=== PATIENT | male | born 1960 | race African-American/Black ===

== ENCOUNTER 2020-04-29 07:58 | Outpatient (REF) | payer SELFPAY | END 2020-04-29 07:59 | disposition home or self-care (01) | LOC: HO.LAB 07:58 | PROVIDERS: Visit Provider Internal Medicine | DX: Z20.828 Contact with and (suspected) exposure to other viral communicable diseases (principal) | CPT/HCPCS: C9803; U0003 ==

== ENCOUNTER 2020-07-15 11:22 | Emergency (ER) | payer OTHER, SELFPAY ==
[2020-07-15 12:23] VITALS: BP 157/98; PULSE 87; RESP 16; TEMP 36.8; O2SAT 95; BMI 27.4
--- NOTE | 2020-07-15 12:46 | ED.GENADULT ---
HPI - General Adult General Chief complaint: General Medical Stated complaint: covid symptoms Time Seen by Provider: 07/15/20 12:46 History of Present Illness HPI narrative: Patient complains of body aches chills, feels feverish sore throat runny nose for 4 days, no cough no difficulty breathing no vomiting Related Data Allergies Allergy/AdvReac Type Severity Reaction Status Date / Time shellfish derived Allergy Severe ANAPHYLAXIS Unverified 02/29/20 15:19 [SHELLFISH DERIVED] penicillin V Allergy Unknown Swollen Verified 09/14/13 00:00 face Penicillins [PENICILLINS] Allergy Unknown ANGIOEDEMA Unverified 02/29/20 15:19 penicillins (shellfish Allergy Unknown Uncoded 07/28/17 00:00 derived Shell fish Allergy Unknown Swollen Uncoded 09/14/13 00:00 face SHELLFISH Allergy Unknown Uncoded 07/28/17 00:00 Review of Systems Review of Systems: Positive for body aches fever fatigue sore throat runny nose Negatives are no headache no dizziness no weakness no neck pain no chest pain no difficulty breathing no shortness of breath no nausea vomiting diarrhea no abdominal pain no rash no numbness no weakness Yes all other systems are reviewed and are negative [facility] Past Medical History Source: nursing notes reviewed Medical History (Updated 07/15/20 @ 13:56 by YAZAN Ramírez) Asthma Social History Social History Advance Directives: No Advance Directives Information Provided: No Physical Exam Vital Signs: Vital Signs: Last Vital Signs Temp 98.2 F 07/15/20 12:47 Pulse 91 07/15/20 12:47 Resp 18 07/15/20 12:47 BP 185/96 H 07/15/20 12:47 Pulse Ox 93 07/15/20 12:47 Body Mass Index 27.4 General appearance no acute distress, comfortable appearing cooperative The eyes not red no discharge The sinuses not tender The pharynx no redness no swelling no exudate, uvula is midline no drooling voice is normal and mucous membranes are well hydrated, normal appearing pharynx The neck is supple without lymphadenopathy The chest is clear with full equal symmetrical breath sounds Heart rate and rhythm regular no murmurs Abdomen soft nontender Extremities no calf tenderness no swelling of calf no edema Skin no rashes neuro no focal deficit Course Course Course Narrative: COVID testing was negative but patient has symptoms that could be COVID so he is advised to stay out of work where mask and assume he might have COVID and to get a repeat test when he feels better for clearance to return to work He is also advised that his blood pressure was elevated and he said this has happened before but he has never had a diagnosis of high blood pressure since he is advised to follow with primary doctor and to buy a home cuff and keep a record of his blood pressure readings Medical Decision Making Lab Data Labs: Lab Results 07/15/20 Range/Units 12:27 Coronavirus (PCR) NEGATIVE (Negative) Influenza Type A (PCR) NEGATIVE (Negative) Influenza Type B (PCR) NEGATIVE (Negative) RSV RNA Qual (PCR) NEGATIVE (Negative) Discharge Plan Discharge Clinical Impression: Acute viral syndrome Patient Disposition: Home, Self-Care Additional Instructions: COVID test was negative but many patients who have COVID illness will have a 1st test negative so assume you might have COVID and wear mask keep a distance and out of work until symptoms are gone and a repeat test is negative Drink plenty of fluids, Tylenol if needed for aches and pains Return any time any worse condition or any concerns Stand Alone Forms: Work/School Release Interventions: ED Discharge Assessment Last Done: 07/15/20 14:48 Discharge Date/Time: 07/15/20 14:48
[2020-07-15 12:47] VITALS: BP 185/96; PULSE 91; RESP 18; TEMP 36.8; O2SAT 93
--- NOTE | 2020-07-15 12:47 | PC.NURSE ---
LS CTA, slightly dim RLL. unlabored at rest. skin pwd. describes fatigue and cough, sob with exertion. Pt had short coughing fit and dropped to 87% but recovered quickly w/o O2. Awaits CT read and repeat swab rsults.
[2020-07-15 13:33] LABS: Influenza A PCR NEGATIVE (Negative); Influenza B PCR NEGATIVE (Negative); Resp Syncy Virus RNA Qual PCR NEGATIVE (Negative); SARS COV2 PCR INHOUSE NEGATIVE (Negative)
== END 2020-07-15 14:48 | disposition home or self-care (01) ==
PROVIDERS: Emergency Provider Emergency Medicine
DX: B34.9 Viral infection, unspecified (principal); Z20.822 Contact with and (suspected) exposure to COVID-19; J02.9 Acute pharyngitis, unspecified; J45.909 Unspecified asthma, uncomplicated
CPT/HCPCS: 0241U; 36415; 99283

== ENCOUNTER 2020-07-19 11:47 | Outpatient (REF) | payer OTHER, SELFPAY | END 2020-07-19 11:48 | disposition home or self-care (01) | LOC: HO.LAB 11:47 | PROVIDERS: Visit Provider Internal Medicine | DX: Z20.822 Contact with and (suspected) exposure to COVID-19 (principal) | CPT/HCPCS: 36415; C9803; U0003; U0005 ==

== ENCOUNTER 2021-02-23 13:01 | Emergency (ER) | payer OTHER, SELFPAY ==
[2021-02-23 13:16] VITALS: BP 164/99; PULSE 98; RESP 18; TEMP 38; O2SAT 95; BMI 26.7
--- NOTE | 2021-02-23 13:25 | ED.GENADULT ---
HPI - General Adult General Chief complaint: General Medical Stated complaint: earache, Fever Time Seen by Provider: 02/23/21 13:24 Source: patient Mode of arrival: ambulatory Limitations: no limitations History of Present Illness HPI narrative: 60 y/o male presenting with 2 days of fevers, sore throat, headache and ear pains. He also has seasonal allergies and his eyes have been watering more than usual. He has runny nose with clear discharge and some post nasal drip. He has no cough, SOB, GONZALES, chest pain, N/V/D or abdominal pain. No sick contacts. 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 He is not vaccinated against COVID. MD complaint: URI symptoms Onset (ago): day(s) (2) Location: head, face and mouth Radiation: non-radiation Severity: moderate Quality: aching Pain Consistency: intermittent Relieving factors: none Exacerbating factors: none Associated symptoms: fever/chills and headaches Treatments prior to arrival: none Related Data Previous Rx's Medication Instructions Recorded cetirizine 10 mg tablet (Zyrtec) 10 mg PO DAILY #14 tab 02/23/21 fluticasone propionate 50 1 spray INTRANASAL BID #16 g 02/23/21 mcg/actuation nasal spray,suspension (Flonase Allergy Relief) Allergies Allergy/AdvReac Type Severity Reaction Status Date / Time shellfish derived Allergy Severe ANAPHYLAXIS Verified 02/23/21 13:16 [SHELLFISH DERIVED] penicillin V Allergy Unknown Swollen Verified 02/23/21 13:16 face Penicillins [PENICILLINS] Allergy Unknown ANGIOEDEMA Verified 02/23/21 13:16 Review of Systems Review of Systems: Constitutional: + Fever, + Chills ENT/Mouth: + sore throat, No Rhinorrhea, No Swallowing Difficulty, +ear pain Eyes: No Eye Pain, No Swelling, + Redness, +eye watering Cardiovascular: No Chest Pain, No SOB, No Orthopnea, No Edema Respiratory: No Cough, No Sputum, No Wheezing, No dyspnea Gastrointestinal: No Nausea, No Vomiting, No Diarrhea, No abdominal Pain Genitourinary: No Dysuria, No Urinary Frequency, No Hematuria Musculoskeletal: No joint pain, No Myalgias Skin: No Skin Lesions, No rash Neuro: No Weakness, No Numbness, No Dizziness, + Headache Heme/Lymph: No Lymphadenopathy PMFSH Past Medical History Medical History (Updated 02/23/21 @ 14:13 by YAZAN Parr) Asthma Social History Social History Advance Directives: No Advance Directives Information Provided: Yes Physical Exam Vital Signs: Vital Signs: Last Vital Signs Temp 100.4 F 02/23/21 13:16 Pulse 98 02/23/21 13:16 Resp 18 02/23/21 13:16 BP 164/99 H 02/23/21 13:16 Pulse Ox 95 02/23/21 13:16 Body Mass Index 26.7 Appearance: Alert. Oriented X3. No acute distress. Eyes: Pupils equal, round and reactive to light. ENT: Pharynx normal. No tonsillar exudate or swelling. Normal TM's bilaterally. Nasal turbinates with erythema and edema Neck: Normal inspection. Neck supple. CVS: Normal heart rate and rhythm. Pulses normal. Respiratory: No respiratory distress. Breath sounds normal. Skin: Skin warm and dry. Normal skin color. Normal skin turgor. No rashes. Extremities: No lower extremity edema. Neuro: Oriented X 3. No motor deficit. No sensory deficit. Course Course Course Narrative: 60 y/o male presenting with URI symptoms. Low grade fever on arrival. He appears well, exam is benign. COVID is negative. Most likely viral etiology. Encouraged to get re-tested for COVID in a couple of days if he is still having symptoms. Will start treatment for his allergies. Supportive care of viral illnesses discussed. Stable for d/c home. Return precautions discussed. Medical Decision Making Lab Data Labs: Lab Results 02/23/21 Range/Units 13:21 COVID-19 (NAIDA) Negative (Negative) COVID-19 Clin Com See Note Critical Care Time Critical Care Time Critical Care Time: No Discharge Plan Discharge Clinical Impression: URI (upper respiratory infection) Patient Disposition: Home, Self-Care Instructions: Upper Respiratory Infection (ED), Allergies (ED) Additional Instructions: Your COVID test was negative today. Your symptoms are most likely viral. Take the prescribed medications for seasonal allergies as directed. Rest. Drink plenty of fluids. Do not go out in public while you are not feeling well. Recommend repeat COVID testing if you continue to have symptoms. Take over the counter cold/flu medications as needed for your symptoms. Take Tylenol and/or Motrin as needed for fevers and body aches. Follow up with your doctor this week. If you develop new or worsening symptoms call 911 or come back to the ER for further evaluation. Prescriptions: New cetirizine [Zyrtec] 10 mg tablet 10 mg PO DAILY Qty: 14 RF: 0 fluticasone propionate [Flonase Allergy Relief] 50 mcg/actuation spray,suspension 1 spray intranasal BID Qty: 16 RF: 0 Stand Alone Forms: Work/School Release
[2021-02-23 13:46] LABS: COVID-19 Test Negative (Negative)
[2021-02-23] MEDS: Ibuprofen 600 MG TABLET PO (13:52)
== END 2021-02-23 14:23 | disposition home or self-care (01) ==
PROVIDERS: Emergency Provider Emergency Medicine
DX: J06.9 Acute upper respiratory infection, unspecified (principal); R50.9 Fever, unspecified; H92.03 Otalgia, bilateral; Z20.822 Contact with and (suspected) exposure to COVID-19; Z79.899 Other long term (current) drug therapy
CPT/HCPCS: 36415; 87635; 99283

== ENCOUNTER 2021-02-26 10:26 | Emergency (ER) | payer OTHER, SELFPAY ==
--- NOTE | ~2021-02-26 | XR_ITS ---
EXAMINATION: XR CHEST CLINICAL INFORMATION: Headache COMPARISON: Previous chest x-ray most recent May 2016 TECHNIQUE: Frontal view of the chest was obtained. FINDINGS: The cardiac silhouette is upper normal in size. Hilar and mediastinal contours are unremarkable. The lungs are clear. There is no pleural effusion or pneumothorax. No acute bone abnormality is seen. XR/XR chest 1V IMPRESSION: No evidence for acute disease in the chest.
--- NOTE | ~2021-02-26 | CT_ITS ---
EXAMINATION: CT HEAD WITHOUT CONTRAST CLINICAL INFORMATION: Headache COMPARISON: Previous head CT December 2013 TECHNIQUE: Contiguous axial imaging was performed from the skull base to vertex without intravenous administration of contrast. This CT examination was performed using dose optimization techniques as appropriate, variously including the following: *Automated exposure control *Adjustment of mA and/or kV according to patient size (this includes techniques or standardized protocols for targeted exams where dose is matched to indication/reason for exam; i.e. extremities or head) *Use of iterative reconstruction technique DLP: 903 mGy-cm FINDINGS: There is no evidence of acute intracranial hemorrhage or territorial infarction. No abnormal mass effect or midline shift is seen. Watkins to white matter differentiation is well preserved. No extra-axial fluid collections are identified. The ventricles are normal in size. There is no abnormal attenuation within the brain parenchyma. The osseous structures and soft tissues are normal. The mastoid air cells and visualized portions of the paranasal sinuses are well aerated. CT/CT head/brain wo con IMPRESSION: Unremarkable exam.
[2021-02-26 11:28] VITALS: BP 170/93; PULSE 102; RESP 22; TEMP 38.4; O2SAT 94; BMI 29.4
--- NOTE | 2021-02-26 11:45 | ED.SOB ---
HPI - SOB/Dyspnea General Chief Complaint: Dyspnea Stated Complaint: Fever Chills Swollen Face Time Seen by Provider: 02/26/21 11:33 History of Present Illness HPI Narrative: 60-year-old presents today with having facial swelling. Achiness. Patient seen a few days ago. Tested for COVID was negative. Patient is not immunized. There is no change in smell or taste. Patient did have some fever up to 101. Denies any neck pain. Denies any diaphoresis. Denies any pain on urination. Minimal coughing. Positive generalized malaise. Positive congestion. Symptoms been ongoing. Not getting any better. Presented back to the emergency department. No history of diabetes, hypertension, high cholesterol. Related Data Previous Rx's Medication Instructions Recorded cetirizine 10 mg tablet (Zyrtec) 10 mg PO DAILY #14 tab 02/23/21 fluticasone propionate 50 1 spray INTRANASAL BID #16 g 02/23/21 mcg/actuation nasal spray,suspension (Flonase Allergy Relief) doxycycline hyclate 100 mg capsule 100 mg PO BID 7 Days #14 cap 02/26/21 Allergies Allergy/AdvReac Type Severity Reaction Status Date / Time shellfish derived Allergy Severe ANAPHYLAXIS Verified 02/23/21 13:16 [SHELLFISH DERIVED] penicillin V Allergy Unknown Swollen Verified 02/23/21 13:16 face Penicillins [PENICILLINS] Allergy Unknown ANGIOEDEMA Verified 02/23/21 13:16 Review of Systems Review of Systems: Positive generalized malaise positive facial swelling Positive congestion All systems reviewed otherwise negative PMFSH Past Medical History Medical History Asthma Social History Social History Advance Directives: No Advance Directives Information Provided: No Physical Exam Vital Signs: Vital Signs: Last Vital Signs Temp 99.6 F 02/26/21 13:21 Pulse 84 02/26/21 13:21 Resp 19 02/26/21 13:21 BP 136/87 02/26/21 13:21 Pulse Ox 97 02/26/21 13:21 Body Mass Index 29.4 Appearance: Alert. Oriented X3. No acute distress. Eyes: Pupils equal, round and reactive to light. ENT: Pharynx normal. Neck: Normal inspection. Neck supple. No lymph nodes noted. No crepitus CVS: Normal heart rate and rhythm. Pulses normal. Normal S1 and S2 Respiratory: No respiratory distress. Breath sounds normal. No Wheezing. No rales Abdomen: Soft and nontender. No rigidity. No distention. good BS x4 Skin: Skin warm and dry. Normal skin color. Normal skin turgor. Extremities: No lower extremity edema. Neurovascular intact to all extremities. No Lacerations. No Rash Neuro: Oriented X 3. No motor deficit. No sensory deficit. Moving all extermities. No slurred speech MDM - SOB/Dyspnea MDM Narrative Medical decision making narrative: Patient well-appearing no acute distress does have a white count of 14. Does not have a history of going outside. Patient chest x-ray was grossly negative for acute infiltrate. Patient's COVID test was negative. Patient's flu test was negative. Patient's CT scan of the head was grossly negative for any acute evidence of bleeding. No evidence of sinusitis. Question etiology of total body ache generalized malaise. Tick-borne panel was sent. Will start patient on doxycycline, follow up on an outpatient basis. Patient has no signs of meningitis neck is completely supple well appearing. Will discharge patient home. Differential Diagnosis Differential diagnosis: Likely acute exacerbation of chronic obstructive airways disease, congestive heart failure, pneumonia, asthma with exacerbation and pulmonary embolism Medical Records Attestation: I reviewed the patient's medical records. Lab Data Result diagrams: 02/26/21 11:53 02/26/21 11:53 Labs: Lab Results 02/26/21 02/26/21 02/26/21 Range/Units 11:53 11:53 11:53 WBC 13.6 H (4.8-10.8) X10*3/uL RBC 5.08 (4.60-5.80) X10*6/uL Hgb 15.4 (14.0-18.0) g/dl Hct 45.6 (42-52) % MCV 89.8 (80-98) fL MCH 30.3 (27.0-33.0) pg MCHC 33.8 (31.0-36.0) g/dl RDW 13.5 (11.0-16.0) % Plt Count 202 (160-400) X10*3/uL MPV 10.0 (9.4-12.4) fL Immature Gran % (Auto) 0.4 (0.0-0.4) % Neut % (Auto) 80.7 H (45-73) % Lymph % (Auto) 9.4 L (20-40) % Haakon % (Auto) 9.1 (2-11) % Eos % (Auto) 0.2 (0-4) % Baso % (Auto) 0.2 (0-2) % Lymph # (Auto) 1.3 (1.2-4.9) X10*3/uL Haakon # (Auto) 1.2 (0.1-1.2) X10*3/uL Eos # (Auto) 0.0 (0.0-0.4) X10*3/uL Baso # (Auto) 0.0 (0.0-0.2) X10*3/uL Abs Immat Gran (auto) 0.06 H (0.00-0.03) X10*3/uL Absolute Neuts (auto) 10.9 H (2.0-8.3) X10*3/uL Absolute Nucleated RBC 0.000 (0.0-0.012) X10*3/uL Nucleated RBC % (auto) 0.0 (0.0-0.2) /100WBC Sodium 137 (135-145) mmol/L Potassium 4.0 (3.3-5.1) mmol/L Chloride 98 (96-108) mmol/L Carbon Dioxide 32 H (22-29) mmol/L Anion Gap 11 L (12-20) BUN 8 L (9-16) mg/dL Creatinine 1.09 (0.5-1.4) mg/dL Estim Creat Clear Calc 85.0 Estimated GFR > 60 Random Glucose 282 H (60-115) mg/dL Lactic Acid 1.4 (0.5-2.0) mmol/L Calcium 9.1 (8.4-10.2) mg/dL Urine Color Urine Appearance Urine pH (5.0-8.0) Ur Specific [place] (1.005-1.025) Urine Protein (NEG-TRACE) MG/DL Urine Glucose (UA) (NEG) MG/DL Urine Ketones (NEG) MG/DL Urine Blood (NEG) Urine Nitrite (NEG) Ur Leukocyte Esterase (NEG) Urine RBC (0) /HPF Urine WBC (0-4) /HPF Ur Squamous Epith Cells /LPF Amorphous Sediment /LPF Urine Bacteria /LPF Hyaline Casts /LPF Urine Mucus /LPF Coronavirus (PCR) (Negative) Influenza Type A (PCR) (Negative) Influenza Type B (PCR) (Negative) RSV RNA Qual (PCR) (Negative) 02/26/21 02/26/21 Range/Units 11:53 13:20 WBC (4.8-10.8) X10*3/uL RBC (4.60-5.80) X10*6/uL Hgb (14.0-18.0) g/dl Hct (42-52) % MCV (80-98) fL MCH (27.0-33.0) pg MCHC (31.0-36.0) g/dl RDW (11.0-16.0) % Plt Count (160-400) X10*3/uL MPV (9.4-12.4) fL Immature Gran % (Auto) (0.0-0.4) % Neut % (Auto) (45-73) % Lymph % (Auto) (20-40) % [place] % (Auto) (2-11) % Eos % (Auto) (0-4) % Baso % (Auto) (0-2) % Lymph # (Auto) (1.2-4.9) X10*3/uL [place] # (Auto) (0.1-1.2) X10*3/uL Eos # (Auto) (0.0-0.4) X10*3/uL Baso # (Auto) (0.0-0.2) X10*3/uL Abs Immat Gran (auto) (0.00-0.03) X10*3/uL Absolute Neuts (auto) (2.0-8.3) X10*3/uL Absolute Nucleated RBC (0.0-0.012) X10*3/uL Nucleated RBC % (auto) (0.0-0.2) /100WBC Sodium (135-145) mmol/L Potassium (3.3-5.1) mmol/L Chloride (96-108) mmol/L Carbon Dioxide (22-29) mmol/L Anion Gap (12-20) BUN (9-16) mg/dL Creatinine (0.5-1.4) mg/dL Estim Creat Clear Calc Estimated GFR Random Glucose (60-115) mg/dL Lactic Acid (0.5-2.0) mmol/L Calcium (8.4-10.2) mg/dL Urine Color YELLOW Urine Appearance CLOUDY Urine pH 6.0 (5.0-8.0) Ur Specific [place] >= 1.030 H (1.005-1.025) Urine Protein 2+ H (NEG-TRACE) MG/DL Urine Glucose (UA) 100 H (NEG) MG/DL Urine Ketones 5 (NEG) MG/DL Urine Blood 1+ H (NEG) Urine Nitrite NEG (NEG) Ur Leukocyte Esterase NEG (NEG) Urine RBC 1-4 (0) /HPF Urine WBC 0-2 (0-4) /HPF Ur Squamous Epith Cells TRACE /LPF Amorphous Sediment 1+ /LPF Urine Bacteria TRACE /LPF Hyaline Casts 1-4 /LPF Urine Mucus TRACE /LPF Coronavirus (PCR) NEGATIVE (Negative) Influenza Type A (PCR) NEGATIVE (Negative) Influenza Type B (PCR) NEGATIVE (Negative) RSV RNA Qual (PCR) NEGATIVE (Negative) Discharge Plan Discharge Clinical Impression: Viral illness Patient Disposition: Home, Self-Care Instructions: Viral Syndrome (ED) Prescriptions: New doxycycline hyclate 100 mg capsule 100 mg PO BID 7 Days Qty: 14 RF: 0 No Action cetirizine [Zyrtec] 10 mg tablet 10 mg PO DAILY Qty: 14 RF: 0 fluticasone propionate [Flonase Allergy Relief] 50 mcg/actuation spray,suspension 1 spray intranasal BID Qty: 16 RF: 0 Referrals: Physician,None [Primary Care Provider] - 2 days (Follow-up with your primary physician worsening condition return to the emergency department.)
[2021-02-26] MEDS: Acetaminophen 325 MG TABLET 650 MG PO (11:56)
[2021-02-26 12:00] LABS: MANUAL DIFF FLAG NO
[2021-02-26 12:04] LABS: Basophils Percent Auto 0.2 % (0-2); Eosinophils Percent Auto 0.2 % (0-4); Hematocrit 45.6 % (42-52); Hemoglobin 15.4 g/dl (14.0-18.0); Imm Gran Abs Auto 0.06 X10*3/uL (0.00-0.03); Imm Gran Pct Auto 0.4 % (0.0-0.4); Lymphocytes Absolute Auto 1.3 X10*3/uL (1.2-4.9); Lymphocytes Percent Auto 9.4 % (20-40); Mean Corpuscular HGB Conc 33.8 g/dl (31.0-36.0); Mean Corpuscular Hemoglobin 30.3 pg (27.0-33.0); Mean Corpuscular Volume 89.8 fL (80-98); Monocytes Absolute Auto 1.2 X10*3/uL (0.1-1.2); Monocytes Percent Auto 9.1 % (2-11); Neutrophils Absolute Auto 10.9 X10*3/uL (2.0-8.3); Neutrophils Percent Auto 80.7 % (45-73); Platelet Count 202 X10*3/uL (160-400); Red Blood Count 5.08 X10*6/uL (4.60-5.80); Red Cell Distribution Width 13.5 % (11.0-16.0); White Blood Count 13.6 X10*3/uL (4.8-10.8)
[2021-02-26 12:15] VITALS: BP 151/98; PULSE 99; RESP 17; TEMP 37.6; O2SAT 95
[2021-02-26 12:15] LABS: Lactic Acid 1.4 mmol/L (0.5-2.0)
[2021-02-26 12:21] LABS: Anion Gap 11 (12-20); Blood Urea Nitrogen 8 mg/dL (9-16); Calcium 9.1 mg/dL (8.4-10.2); Carbon Dioxide 32 mmol/L (22-29); Chloride 98 mmol/L (96-108); Estimated Glomerular Filt Rate > 60; Glucose Random 282 mg/dL (60-115); Sodium 137 mmol/L (135-145)
[2021-02-26 13:03] LABS: Influenza A PCR NEGATIVE (Negative); Influenza B PCR NEGATIVE (Negative); Resp Syncy Virus RNA Qual PCR NEGATIVE (Negative); SARS COV2 PCR INHOUSE NEGATIVE (Negative)
[2021-02-26 13:21] VITALS: BP 136/87; PULSE 84; RESP 19; TEMP 37.6; O2SAT 97
[2021-02-26 13:31] LABS: Appearance Urine CLOUDY; Color Urine YELLOW; Glucose Urine UA 100 MG/DL (NEG); Leukocyte Esterase Urine NEG (NEG); Nitrite Urine NEG (NEG); Specific Gravity - Urine >= 1.030 (1.005-1.025); UACC Culture Trigger NO; Urine Blood 1+ (NEG); Urine Ketones 5 MG/DL (NEG); Urine Protein 2+ MG/DL (NEG-TRACE)
[2021-02-26 13:43] LABS: Amorphous Sediment Urine 1+ /LPF; Bacteria Urine TRACE /LPF; Mucus Urine TRACE /LPF; Squamous Epithelial Cell Urine TRACE /LPF; WBC Urine 0-2 /HPF (0-4)
[2021-02-27 08:30] LABS: Lyme Abs Screen <0.90 index
[2021-02-28 06:17] LABS: A. Phagocytophilum Ab IgG <1:64 (<1:64); A. Phagocytophilum Ab IgM <1:20 (<1:20); Babesia IgG <1:64 titer (<1:64); Babesia IgM <1:20 titer (<1:20); E. Chaffeensis Ab IgG <1:64 (<1:64); E. Chaffeensis Ab IgM <1:20 (<1:20)
== END 2021-02-26 14:34 | disposition home or self-care (01) ==
PROVIDERS: Emergency Provider Emergency Medicine Emergency Medical Services
DX: B34.9 Viral infection, unspecified (principal); R50.9 Fever, unspecified; R06.02 Shortness of breath; R51.9 Headache, unspecified; Z20.822 Contact with and (suspected) exposure to COVID-19; Z79.899 Other long term (current) drug therapy
CPT/HCPCS: 0241U; 36415; 70450; 71045; 80048; 81001; 83605; 85025; 86617; 86618; 86666; 86753; 87040; 87077; 87186; 87205; 99283; 99284

== ENCOUNTER 2021-02-26 22:46 | Inpatient (IN) | payer OTHER, SELFPAY ==
--- NOTE | ~2021-02-26 | CT_ITS ---
EXAMINATION: CONTRAST-ENHANCED CT OF THE CHEST; CONTRAST-ENHANCED CT OF THE ABDOMEN AND PELVIS INDICATION: Bacteremia COMPARISON: 12/16/2013 TECHNIQUE: 85 mL Omnipaque 350 IV contrast was utilized. Multidetector helical imaging was performed through the chest, abdomen, and pelvis. Coronal and sagittal reformatted images were created at the technologist workstation. DLP: MARI 8 mGy-cm DOSE LOWERING TECHNIQUES: This CT examination was performed using dose optimization techniques as appropriate, variously including the following: - Automated exposure control - Adjustment of mA and/or kV according to patient size (this includes techniques or standardized protocols for targeted exams were dose is matched to indication/reason for exam; i.e. extremities or head) - Use of iterative reconstruction technique FINDINGS: Chest: Mild atelectasis bilaterally without additional consolidation. No pneumothorax or pleural effusion. Thyroid gland appears prominent. There are subcentimeter mediastinal lymph nodes within the range of normal variation. Duplicated SVC is noted. Borderline cardiomegaly without pericardial effusion. Coronary artery calcifications are present. Nonspecific mildly prominent bilateral axillary lymph nodes. Scattered degenerative changes noted in the thoracic spine. Abdomen/Pelvis: The liver is homogeneous in attenuation without intrahepatic biliary ductal dilatation. The gallbladder is unremarkable. The spleen, pancreas, and adrenal glands are within normal limits. Bilateral nephrograms are symmetric. No hydronephrosis. There is an approximately 6.4 similar left renal cyst; no follow-up recommended. No obstructing renal or ureteral calculi are present. The urinary bladder is partially distended with mural prominence. The prostate and seminal vesicles are unremarkable. There are bilateral fat-containing inguinal hernias. The small and large bowel are unremarkable without evidence of obstruction or pericolonic inflammatory change. The appendix is unremarkable. No free fluid or free air is identified. Scattered atherosclerotic calcifications are present. Retroaortic left renal vein noted. No retroperitoneal or pelvic lymphadenopathy is seen. Degenerative changes are noted in the spine. CT/CT abdomen pelvis w con IMPRESSION: 1. Mural prominence of the urinary bladder, which could be due to underdistention versus cystitis. 2. Coronary artery calcifications. Correlation with cardiac risk factors is recommended. 3. Bilateral fat-containing inguinal hernias.
--- NOTE | ~2021-02-26 | CT_ITS ---
EXAMINATION: CT FACIAL BONES WITHOUT CONTRAST CLINICAL INFORMATION: Fever, bacteremia, facial swelling COMPARISON: Head CT 02/26/2021 TECHNIQUE: Noncontrast multidetector helical imaging was performed through the maxillofacial bones. Coronal and sagittal reformatted images were created. This CT examination was performed using dose optimization techniques as appropriate, variously including the following: *Automated exposure control *Adjustment of mA and/or kV according to patient size (this includes techniques or standardized protocols for targeted exams where dose is matched to indication/reason for exam; i.e. extremities or head) *Use of iterative reconstruction technique DLP: 844 mGy-cm FINDINGS: No acute maxillofacial fractures are seen. The frontal, maxillary, ethmoid, and sphenoid sinuses are well aerated. There is a calcified thickening along the infundibula. The nasal septum is midline. The mandibular condyles are well-seated in the condylar fossa. There are degenerative changes of the cervical spine. Mild symmetric periorbital edema suspected. The globes are intact, and there are no suspicious findings to suggest retrobulbar hemorrhage. Visualized portions of the brain parenchyma are unremarkable. The mastoid air cells are well-aerated. CT/CT facial bones wo con IMPRESSION: Mild symmetric periorbital edema. No additional acute findings identified.
[2021-02-26 22:56] VITALS: BP 144/84; PULSE 104; RESP 18; TEMP 36.8; O2SAT 94; BMI 26.0
--- NOTE | 2021-02-26 23:21 | PC.NURSE ---
MD and PA at bedside discussing plan of care.
--- NOTE | 2021-02-26 23:45 | PC.NURSE ---
IV established x 2, all labs including BCX obtained and sent. Pt medicated per MAR with ABX and IVF. Awaiting CT.
[2021-02-26 23:46] LABS: MANUAL DIFF FLAG NO
[2021-02-26 23:48] LABS: Basophils Percent Auto 0.2 % (0-2); Eosinophils Percent Auto 0.1 % (0-4); Hematocrit 42.1 % (42-52); Hemoglobin 14.4 g/dl (14.0-18.0); Imm Gran Abs Auto 0.09 X10*3/uL (0.00-0.03); Imm Gran Pct Auto 0.6 % (0.0-0.4); Lymphocytes Absolute Auto 1.7 X10*3/uL (1.2-4.9); Lymphocytes Percent Auto 10.8 % (20-40); Mean Corpuscular HGB Conc 34.2 g/dl (31.0-36.0); Mean Corpuscular Hemoglobin 30.4 pg (27.0-33.0); Mean Platelet Volume 9.9 fL (9.4-12.4); Monocytes Absolute Auto 1.5 X10*3/uL (0.1-1.2); Monocytes Percent Auto 9.6 % (2-11); Neutrophils Absolute Auto 12.1 X10*3/uL (2.0-8.3); Neutrophils Percent Auto 78.7 % (45-73); Platelet Count 201 X10*3/uL (160-400); Red Blood Count 4.73 X10*6/uL (4.60-5.80); Red Cell Distribution Width 13.4 % (11.0-16.0); White Blood Count 15.3 X10*3/uL (4.8-10.8)
[2021-02-26] MEDS: methylPREDNISolone Sod Succ 125 MG/2 ML VIAL 60 MG IVPUSH (23:53)
[2021-02-26] MEDS: diphenhydrAMINE HCL 50 MG/ML VIAL 25 MG IVPUSH (23:53)
[2021-02-26] MEDS: 0.9 % Sodium Chloride 1,000 ML 999 ML IVCONT (23:54)
[2021-02-26] MEDS: cefTRIAXone sodium 1 GM in 0.9 % Sodium Chloride 50 ML IV (23:54)
[2021-02-26 23:57] LABS: Lactic Acid 1.4 mmol/L (0.5-2.0)
--- NOTE | 2021-02-26 23:58 | ED.RECABL ---
HPI - Recheck/Abnormal Lab/Rx General Chief Complaint: Recheck/Abnormal Lab/Rx Stated Complaint: abnormal labs Time Seen by Provider: 02/26/21 23:09 Source: patient Mode of arrival: ambulatory Limitations: no limitations History of Present Illness HPI narrative: 60 y/o male with mild intermittent asthma, seasonal allergies who presents back to the ER for evaluation of positive blood cultures that were drawn earlier today. He was initially seen on 02/23 with low grade fevers, nasal congestion, body aches, negative for COVID. He presented back this afternoon with persistent fevers at home for the last 4 days up to 101. He also reported facial and eye swelling for the last couple of days with frontal and temporal headaches. COVID again negative, CT Head negative and WBC 13.6. Tested for tick bourne illnesses. He reports ongoing mild dry cough, body aches and generally not feeling well. No nausea, vomiting, diarrhea, chest pain, neck pain, rash or abdominal pain. MD complaint: abnormal lab and needs IV antibiotics Initial visit (ago): day(s) (3) Returns today for: called because of abnormal lab/test and needs IV antibiotics Symptoms since prior visit: worsening pain and worsening swelling Context: called for positive culture result Associated symptoms: fever and chills Related Data Previous Rx's Medication Instructions Recorded cetirizine 10 mg tablet (Zyrtec) 10 mg PO DAILY #14 tab 02/23/21 fluticasone propionate 50 1 spray INTRANASAL BID #16 g 02/23/21 mcg/actuation nasal spray,suspension (Flonase Allergy Relief) doxycycline hyclate 100 mg capsule 100 mg PO BID 7 Days #14 cap 02/26/21 Allergies Allergy/AdvReac Type Severity Reaction Status Date / Time penicillin V Allergy Severe Swollen Verified 02/26/21 22:55 face Penicillins [PENICILLINS] Allergy Severe ANGIOEDEMA Verified 02/26/21 22:55 shellfish derived Allergy Severe ANAPHYLAXIS Verified 02/26/21 22:55 [SHELLFISH DERIVED] Review of Systems Constitutional: Constitutional: Reports body ache(s), Reports chills, Reports fever(s), Reports headache(s) and Reports malaise Eyes: Eyes: Reports irritation, Reports eye pain and Reports other (swollen eye lids) ENT: Reports Normal hearing present, Denies dental pain, Denies dizziness, Reports facial pain, Reports headache(s), Denies mouth pain, Denies neck pain, Denies sore throat, Denies throat swelling and Denies tongue swelling Cardiovascular: Cardiovascular: Denies chest pain and Denies dyspnea Respiratory: Respiratory: Reports cough, Denies pain with cough and Denies dyspnea Gastrointestinal: Gastrointestinal: Denies abdominal pain, Denies diarrhea, Denies nausea and Denies vomiting Genitourinary: Genitourinary: Denies dysuria and Denies flank pain Musculoskeletal: Musculoskeletal: Reports myalgias and Denies neck pain Integumentary/Breasts: Skin/Breast: Denies pruritus and Denies rash Neurologic: Reports Normal hearing present, Denies confusion, Denies dizziness and Reports headache(s) Psychiatric: Psychiatric: Denies confusion Hematologic/Lymphatic: Hematologic/Lymphatic: Denies easy bleeding and Denies easy bruising Allergic/Immunologic: Allergic/Immunologic: Denies throat swelling and Denies tongue swelling PMFSH Past Medical History Medical History Asthma Social History Social History Advance Directives: No Advance Directives Information Provided: Yes Physical Exam Vital Signs: Vital Signs: Last Vital Signs Temp 98.3 F 02/26/21 22:56 Pulse 103 H 02/27/21 01:06 Resp 18 02/27/21 01:06 BP 127/79 02/27/21 01:06 Pulse Ox 94 02/26/21 22:56 Body Mass Index 26.0 Const: General: cooperative, no acute distress and well developed; No confusion Nutritional Appearance: average body habitus Orientation/consciousness: patient oriented x3 and No confusion Limitations: no limitations HENMT: Head: Yes normal to inspection, Yes normocephalic and Yes atraumatic Ears: hearing grossly normal bilaterally, external ears normal and TM's normal bilaterally General nose exam: Normal external nose present and Normal nares present Face and sinus: Yes edema and Yes Facial tenderness on exam of face and sinuses Mouth: Normal oral and palatal mucosa present, lip normal, tongue normal and moist mucous membranes Teeth and gingiva: dentures Throat: Yes posterior oropharynx normal, Yes tonsils normal and Yes uvula midline Eyes: Alignment and Position: alignment normal and position normal Periorbital: periorbital findings abnormal bilateral periorbital swelling Eyelids: Yes eyelid abnormality (bilateral upper and lower lid edema without erythema or tenderness) Sclerae: scleral abnormal bilateral scleral injection diffuse Pupils: Equal, round and reactive pupils present EOM: EOMs intact bilaterally Neck: Neck: Yes normal visual inspection and Yes no lymphadenopathy Chest: Chest palpation & inspection: normal inspection of the chest and normal palpation of entire chest wall Resp: Effort & Inspection: normal respiratory effort and able to speak in complete sentences Auscultation: clear to auscultation bilaterally Cardio: Rate: tachycardic Rhythm: regular rhythm Heart sounds: S1 normal heart sound present and S2 normal heart sound present GI: Inspection: Yes distended Palpation (GI): Soft to palpation, not firm and nontender Auscultation: normal bowel sounds Rectal Exam - Male: Yes deferred : General: Yes no CVA tenderness Back/Spine/Pelvis: Back: no CVA tenderness Cervical Spine: cervical ROM normal and No Cervical spine tenderness Thoracic/Lumbar Spine: No thoracic spinal tenderness and No lumbar spinal tenderness Skin: General skin exam: no rashes or lesions noted Neuro: General: patient oriented x3, gait normal, tone normal, moves all extremities, CN's II-XI intact bilaterally and No confusion Cranial nerves: Yes Equal, round and reactive pupils present and Yes Normal hearing present Extrem: General: Yes normal to inspection, Yes full ROM, Yes no pedal edema and Yes no calf tenderness Psych: Appearance: grossly normal Mental Status: mental status grossly normal Speech and movement: Normal speech and movement present Course Course Course Narrative: 60 y/o male presenting with 4 days of fevers, found to be bacteremic today (GPC in chains x2). Source is not clear at this time. No hx IVDA. No dentition for dental infection. No wounds. No joint prosthesis. No back pain. Will repeat cultures, check lactic acid and panscan. Initial CT head done this afternoon showed normal osseous structures and soft tissues. Exam is not consistent with periorbital cellulitis. Case d/w Dr. Carmona who evaluated the patient. Will give vancomycin and rocephin for broad coverage. Reevaluation(s) Reevaluation #1: WBC uptrended to 15. Lactic acid normal. CT scans showing possible cystitis. Repat UA pending but earlier UA from today had no bacteria, LE or nitrites. HR remain low 100's. IVF infusing. Spoke with Dr. Fernando who will admit the patient for furher workup and management. Will add on CT sinuses per recs. Patient updated on plan of care who agreeable to admission. MDM - Recheck/Abnormal Lab/Rx Lab Data Result diagrams: 02/26/21 23:39 02/26/21 23:39 Labs: Lab Results 02/26/21 02/26/21 02/26/21 Range/Units 23:39 23:39 23:39 WBC 15.3 H (4.8-10.8) X10*3/uL RBC 4.73 (4.60-5.80) X10*6/uL Hgb 14.4 (14.0-18.0) g/dl Hct 42.1 (42-52) % MCV 89.0 (80-98) fL MCH 30.4 (27.0-33.0) pg MCHC 34.2 (31.0-36.0) g/dl RDW 13.4 (11.0-16.0) % Plt Count 201 (160-400) X10*3/uL MPV 9.9 (9.4-12.4) fL Immature Gran % (Auto) 0.6 H (0.0-0.4) % Neut % (Auto) 78.7 H (45-73) % Lymph % (Auto) 10.8 L (20-40) % [place] % (Auto) 9.6 (2-11) % Eos % (Auto) 0.1 (0-4) % Baso % (Auto) 0.2 (0-2) % Lymph # (Auto) 1.7 (1.2-4.9) X10*3/uL [place] # (Auto) 1.5 H (0.1-1.2) X10*3/uL Eos # (Auto) 0.0 (0.0-0.4) X10*3/uL Baso # (Auto) 0.0 (0.0-0.2) X10*3/uL Abs Immat Gran (auto) 0.09 H (0.00-0.03) X10*3/uL Absolute Neuts (auto) 12.1 H (2.0-8.3) X10*3/uL Absolute Nucleated RBC 0.000 (0.0-0.012) X10*3/uL Nucleated RBC % (auto) 0.0 (0.0-0.2) /100WBC Sodium 136 (135-145) mmol/L Potassium 4.2 (3.3-5.1) mmol/L Chloride 98 (96-108) mmol/L Carbon Dioxide 27 (22-29) mmol/L Anion Gap 15 (12-20) BUN 6 L (9-16) mg/dL Creatinine 0.92 (0.5-1.4) mg/dL Estim Creat Clear Calc 90.9 Estimated GFR > 60 Random Glucose 195 H (60-115) mg/dL Lactic Acid 1.4 (0.5-2.0) mmol/L Calcium 8.3 L D (8.4-10.2) mg/dL Magnesium 2.2 (1.6-2.6) mg/dL Total Bilirubin 0.6 (0.0-1.0) mg/dL Direct Bilirubin 0.2 (0.0-0.5) mg/dL AST 35 (5-37) U/L ALT 31 (0-40) U/L Alkaline Phosphatase 82 (39-117) U/L Total Protein 7.1 (6.5-8.0) g/dL Albumin 3.6 (3.5-5.0) g/dL Discharge Plan Discharge Clinical Impression: Bacteremia Patient Disposition: Admitted As Inpatient Prescriptions: No Action cetirizine [Zyrtec] 10 mg tablet 10 mg PO DAILY Qty: 14 RF: 0 fluticasone propionate [Flonase Allergy Relief] 50 mcg/actuation spray,suspension 1 spray intranasal BID Qty: 16 RF: 0 doxycycline hyclate 100 mg capsule 100 mg PO BID 7 Days Qty: 14 RF: 0
[2021-02-27] VITALS (9 sets, daily range): BP systolic 127–156; BP diastolic 79–99; PULSE 86–103; RESP 15–20; TEMP 36.3–37; O2SAT 95–98
--- NOTE | 2021-02-27 | ECG_ITS ---
Test Reason : TROP ELEVATED Blood Pressure : / mmHG Vent. Rate : 091 BPM Atrial Rate : 091 BPM P-R Int : 168 ms QRS Dur : 108 ms QT Int : 394 ms P-R-T Axes : 051 -65 -24 degrees QTc Int : 484 ms Sinus rhythm with occasional Premature ventricular complexes Possible Left atrial enlargement Left anterior fascicular block Nonspecific ST and T wave abnormality Abnormal ECG When compared with ECG of 20-MAY-2016 15:51, Premature ventricular complexes are now Present Inverted T waves have replaced nonspecific T wave abnormality in Inferior leads Referred By: Gabriele Fernando Electronically Signed By:GI OCHOA
[2021-02-27 00:04] LABS: Alanine Aminotransferase 31 U/L (0-40); Albumin Level 3.6 g/dL (3.5-5.0); Alkaline Phosphatase 82 U/L (39-117); Anion Gap 15 (12-20); Aspartate Amino Transferase 35 U/L (5-37); Bilirubin Direct 0.2 mg/dL (0.0-0.5); Bilirubin Total 0.6 mg/dL (0.0-1.0); Blood Urea Nitrogen 6 mg/dL (9-16); Calcium 8.3 mg/dL (8.4-10.2); Carbon Dioxide 27 mmol/L (22-29); Chloride 98 mmol/L (96-108); Creatinine Clr Calc Pharmacy 90.9; Estimated Glomerular Filt Rate > 60; Glucose Random 195 mg/dL (60-115); Magnesium 2.2 mg/dL (1.6-2.6); Potassium 4.2 mmol/L (3.3-5.1); Sodium 136 mmol/L (135-145); Total Protein 7.1 g/dL (6.5-8.0)
[2021-02-27] MEDS: iohexoL 350 MG/ML 100 ML INFUS..BTL 85 ML IV (00:34)
[2021-02-27] MEDS: vancomycin HCL 1,000 MG in 0.9 % Sodium Chloride 250 ML 270 MG IV (00:45)
[2021-02-27 01:30] LABS: C Reactive Protein 29.98 mg/dL (< or = 0.50)
[2021-02-27 01:52] LABS: Appearance Urine CLEAR; Color Urine STRAW; Glucose Urine UA NEG (NEG); Leukocyte Esterase Urine NEG (NEG); Nitrite Urine NEG (NEG); PH 5.5 (5.0-8.0); Specific Gravity - Urine <= 1.005 (1.005-1.025); UACC Culture Trigger NO; Urine Blood 1+ (NEG); Urine Ketones NEG (NEG); Urine Protein TRACE MG/DL (NEG-TRACE)
--- NOTE | 2021-02-27 01:52 | PC.NURSE ---
Pt ambulating to and from the bathroom. Urine sample obtained and sent. VSS. Pt aware of plan to admit. Per pt, he does not take any home medications. Med Rec complete. Pt requesting food/drink, provided with a sandwich and juice per request.
[2021-02-27 01:57] LABS: IDNOW Serial# 9DD0AD1C; Strep A Nucleic Acid Negative (Negative)
[2021-02-27 01:58] LABS: Erythrocyte Sedimentation Rate 69 MM/HR (0-15)
[2021-02-27 02:00] LABS: RBC Urine 0-2 /HPF (0); Squamous Epithelial Cell Urine TRACE /LPF; WBC Urine 0-2 /HPF (0-4)
--- NOTE | 2021-02-27 02:30 | PC.NURSE ---
Hospitalist at bedside for primary eval.
--- NOTE | 2021-02-27 03:00 | P.HPHOSP_ITS ---
History of Present Illness Date of Service: 02/27/21 Chief Complaint: Fever 60-year-old male with a past medical history of asthma, tobacco dependence presented to the hospital with a chief complaint of fevers. Patient mentioned that he has been having fevers and generalized body aches over the past 4 days; came to the hospital couple days ago and had routine workup done and subsequently sent home. Today patient was called back in because the blood cultures from couple days ago came back positive for Gram-positive cocci in chains. Patient reports that he continued to have fevers; also complains of throat d iscomfort. Reports he smokes cigarettes. Denies any numbness tingling or focal weakness. Denies any sputum production Denies any urinary symptoms Patient had COVID test done x2 that was negative; patient denies any sick contacts or recent travel. Denies any shortness of breath. Denies any chest pain palpitations lightheadedness or dizziness. Review of all other systems is negative except mentioned above ER course: Per ER team patient noted to have mild facial puffiness/congestion; exam grossly nonfocal; chest x-ray showed no acute findings; urinalysis negative; patient was given IV vancomycin and ceftriaxone which patient tolerated well. Admitted to the hospital for further management. ER team also send tick-borne panel. [facility] Medical History Asthma Social History Advance Directives: No Advance Directives Information Provided: Yes Meds Allergies Allergy/AdvReac Type Severity Reaction Status Date / Time penicillin V Allergy Severe Swollen Verified 02/26/21 22:55 face Penicillins [PENICILLINS] Allergy Severe ANGIOEDEMA Verified 02/26/21 22:55 shellfish derived Allergy Severe ANAPHYLAXIS Verified 02/26/21 22:55 [SHELLFISH DERIVED] Active Medications: Current Medications Generic Name Dose Route Start Last Admin Trade Name Freq PRN Reason Stop Dose Admin Albuterol/Ipratropium 3 ml 02/27/21 02:57 Albuterol/Iprat 2.5/0.5mg 3 Ml Ampul.Neb INHALE RQ4H PRN Shortness of Breath/Wheezing Benzocaine 1 lozenge 02/27/21 02:57 Throat Lozenge, Medicated Lozenge MUCOUS MEM Q2H PRN Sore Throat Vancomycin HCl 1,000 mg/ 270 mls @ 270 mls/hr 02/27/21 03:00 Sodium Chloride IV Q12H [facility] Ceftriaxone Sodium 1 gm/ 50 mls @ 100 mls/hr 02/27/21 03:00 Sodium Chloride IV Q24H [facility] Pharmacy Consult 1 each 02/26/21 23:09 Consult Rx Perform Med Rec MISCELLANE ONCE PRN Consult order Pharmacy Consult 1 each 02/26/21 23:09 Consult Rx Vancomycin Dosing MISCELLANE DAILY PRN Consult order Pharmacy Consult 1 each 02/27/21 02:56 Consult Rx Vancomycin Dosing MISCELLANE DAILY PRN Consult order Home Medications Medication Instructions Recorded Confirmed Last Taken Type No Known Home Meds 02/27/21 02/27/21 Unknown History Physical Exam Vital Signs and Narrative: Vital Signs: Last Vital Signs Temp 98.3 F 02/26/21 22:56 Pulse 103 H 02/27/21 01:06 Resp 18 02/27/21 01:06 BP 127/79 02/27/21 01:06 Pulse Ox 94 02/26/21 22:56 Body Mass Index 26.0 Gen: Appears be in no acute distress HEENT: NCAT, Moist mucosa. Mild facial puffiness noted around the orbits; no scleral involvement; EOMI Pulmonary: Vesicular breath sounds, fair air entry CVS: Normal S1-S2 Abdomen: BS+, Soft, Nontender Extremities: Warm well perfused Neuro: Alert and awake. Grossly nonfocal Results Labs CBC and Chem 7: 02/27/21 05:13 02/27/21 05:13 Labs: Laboratory Results - last 24 hr 02/26/21 02/26/21 02/26/21 23:39 23:39 23:39 MCV 89.0 MCH 30.4 MCHC 34.2 RDW 13.4 Plt Count 201 MPV 9.9 Immature Gran % (Auto) 0.6 H Neut % (Auto) 78.7 H Lymph % (Auto) 10.8 L [place] % (Auto) 9.6 Eos % (Auto) 0.1 Baso % (Auto) 0.2 Lymph # (Auto) 1.7 [place] # (Auto) 1.5 H Eos # (Auto) 0.0 Baso # (Auto) 0.0 Abs Immat Gran (auto) 0.09 H Absolute Neuts (auto) 12.1 H Absolute Nucleated RBC 0.000 Nucleated RBC % (auto) 0.0 ESR Anion Gap 15 Estim Creat Clear Calc 90.9 Estimated GFR > 60 Random Glucose 195 H Lactic Acid 1.4 Calcium 8.3 L D Magnesium 2.2 Total Bilirubin 0.6 Direct Bilirubin 0.2 AST 35 ALT 31 Alkaline Phosphatase 82 C-Reactive Protein 29.98 H Total Protein 7.1 Albumin 3.6 Urine Color Urine Appearance Urine pH Ur Specific [place] Urine Protein Urine Glucose (UA) Urine Ketones Urine Blood Urine Nitrite Ur Leukocyte Esterase Urine RBC Urine WBC Ur Squamous Epith Cells Urine Bacteria S. pyogenes GrpA [place] 02/26/21 02/27/21 02/27/21 23:39 01:44 01:44 MCV MCH MCHC RDW Plt Count MPV Immature Gran % (Auto) Neut % (Auto) Lymph % (Auto) [place] % (Auto) Eos % (Auto) Baso % (Auto) Lymph # (Auto) [place] # (Auto) Eos # (Auto) Baso # (Auto) Abs Immat Gran (auto) Absolute Neuts (auto) Absolute Nucleated RBC Nucleated RBC % (auto) ESR 69 H Anion Gap Estim Creat Clear Calc Estimated GFR Random Glucose Lactic Acid Calcium Magnesium Total Bilirubin Direct Bilirubin AST ALT Alkaline Phosphatase C-Reactive Protein Total Protein Albumin Urine Color STRAW Urine Appearance CLEAR Urine pH 5.5 Ur Specific [place] <= 1.005 Urine Protein TRACE Urine Glucose (UA) NEG Urine Ketones NEG Urine Blood 1+ H Urine Nitrite NEG Ur Leukocyte Esterase NEG Urine RBC 0-2 Urine WBC 0-2 Ur Squamous Epith Cells TRACE Urine Bacteria NONE S. pyogenes GrpA [place] Negative Imaging Radiologist's Impressions: Impressions Abdomen/Pelvis CT 02/27/21 00:00 IMPRESSION: 1. Mural prominence of the urinary bladder, which could be due to underdistention versus cystitis. 2. Coronary artery calcifications. Correlation with cardiac risk factors is recommended. 3. Bilateral fat-containing inguinal hernias. Chest CT 02/27/21 00:00 IMPRESSION: 1. Mural prominence of the urinary bladder, which could be due to underdistention versus cystitis. 2. Coronary artery calcifications. Correlation with cardiac risk factors is recommended. 3. Bilateral fat-containing inguinal hernias. Assessment and Plan (1) Bacteremia: Status: Acute 60-year-old male with a past medical history of asthma, tobacco dependence presented to the hospital with a chief complaint of fever/body aches/throat discomfort. Noted to have bacteremia. Admitted for further management. Bacteremia: Blood cultures are growing Gram-positive cocci in chains. Final results pending. Continue IV vancomycin and ceftriaxone. Noted mild facial congestion/puffiness. No orbital involvement. CT head negative. CT abdomen consider possible mild cystitis-but patient urinalysis is negative. Echocardiogram Id consult Rapid strep is negative Tick panel sent History of asthma: Stable. [place] p.r.n.. History of tobacco dependence: Nicotine patch offered. Counseled on smoking cessation. Hyperglycemia: sent hba1c; ISS. Indeterminate Troponins: pt denies chest pain; Echo; cardiology consult; EKG. DVT prophylaxis: SCD boots Code status: Full code Off note: Things to follow up by day hospitalist once care resumed on 02/27/2021 at 7:00 a.m.: Echocardiogram Tick panel results Id consult inputs Quality Stroke Does the patient have a stroke diagnosis?: No VTE Prior VTE?: No VTE Risk Level:: Medical - moderate - high VTE Device Contraindication: N/A - Device Ordered VTE Drug Contraindication: Treatment Not Indicated
[2021-02-27] MEDS: 0.9 % Sodium Chloride 1,000 ML 100 ML IVCONT ×2 (03:54→13:22)
--- NOTE | 2021-02-27 04:41 | PC.NURSE ---
Pt found standing in room, extremely diaphoretic, had soaked through his shirt. Pt using bedside urinal and drinking liquids. Pt states I don't know what happened, I just woke up covered in sweat! Diaphoresis subsiding quickly. Pt provided with a complete bed change and agreeable to changing into hospital attire. IVs resecured tp pt, IVF infusing. Pt off to CT on hospital bed.
[2021-02-27 05:03] LABS: Glucose, Whole Blood 412 mg/dL (60-115)
--- NOTE | 2021-02-27 05:17 | PC.NURSE ---
This RN calling Hospitalist due to a period of confusion and diaphoresis lasting approx 15 minutes. POC noted to be 412 mg/dl. VS WNL, pt afebrile. Per Hospitalist, to obtain stat labs. Labs obtained by this RN. Awaiting results.
[2021-02-27 05:18] LABS: Basophils Percent Auto 0.1 % (0-2); Hematocrit 42.6 % (42-52); Hemoglobin 14.4 g/dl (14.0-18.0); Imm Gran Pct Auto 0.7 % (0.0-0.4); Lymphocytes Absolute Auto 0.8 X10*3/uL (1.2-4.9); Lymphocytes Percent Auto 5.6 % (20-40); Mean Corpuscular HGB Conc 33.8 g/dl (31.0-36.0); Mean Corpuscular Hemoglobin 30.2 pg (27.0-33.0); Mean Corpuscular Volume 89.3 fL (80-98); Mean Platelet Volume 9.7 fL (9.4-12.4); Monocytes Absolute Auto 0.3 X10*3/uL (0.1-1.2); Monocytes Percent Auto 2.1 % (2-11); Neutrophils Absolute Auto 12.8 X10*3/uL (2.0-8.3); Neutrophils Percent Auto 91.5 % (45-73); Platelet Count 202 X10*3/uL (160-400); Red Blood Count 4.77 X10*6/uL (4.60-5.80); Red Cell Distribution Width 13.6 % (11.0-16.0); SCAN SMEAR FLAG 1
[2021-02-27 05:19] LABS: MANUAL DIFF FLAG SCAN
[2021-02-27 05:36] LABS: SLIDE REVIEW VERIFIED
[2021-02-27 05:39] LABS: Troponin-I High Sensitivity 35.7 ng/L (<3.5-35.0)
--- NOTE | 2021-02-27 05:41 | PC.NURSE ---
Pt ambulating to the bathroom, having multiple episodes of diarrhea. Pt states this was the first episode of diarrhea throughout the last 4 days of current illness. Pt assisted into bed into POC, resting with lights dim for comfort.
[2021-02-27 05:43] LABS: Anion Gap 12 (12-20); Blood Urea Nitrogen 8 mg/dL (9-16); Calcium 8.3 mg/dL (8.4-10.2); Carbon Dioxide 26 mmol/L (22-29); Chloride 101 mmol/L (96-108); Creatinine Clr Calc Pharmacy 78.9; Estimated Glomerular Filt Rate > 60; Glucose Random 424 mg/dL (60-115); Potassium 4.4 mmol/L (3.3-5.1); Sodium 135 mmol/L (135-145)
--- NOTE | 2021-02-27 05:54 | PC.NURSE ---
EKG obtained per verbal order from Hospitalist due to elevated Troponin.
--- NOTE | 2021-02-27 07:20 | PHA.MEDREC ---
Pharmacy Consult ? Medication Reconciliation Pharmacy has completed the medication reconciliation. The home medications were what he was discharged with on 02/26/21. Other than those, he is on no Home Medications. Barbara Ash, PharmD [phone]
--- NOTE | 2021-02-27 07:22 | PHA.PROG ---
Admission Date/Time: February 27, 2021 02:58 Indication: bacteremia Weight in k.822 kg Adjusted body weight in K kg [place] body weight in K.3 kg Obesity Dosing Indication % IBW: Serum Creatinine - Last 168 Hours 02/26/21 02/27/21 23:39 05:13 Creatinine 0.92 1.06 Estimated CrCl and GFR - Last 168 Hours 02/26/21 02/27/21 23:39 05:13 Estim Creat Clear Calc 90.9 78.9 Estimated GFR > 60 > 60 Vancomycin Loading Dose: 1000 mg given in ED Current Vancomycin Dosing Regimen: 750 mg Q12H Vancomycin Monitoring using AUC goal of 400 - 600 range with trough as surrogate marker: predicted AUC 412, trough 13.5 Date and Time for next Vancomycin Level to be drawn: 02/28/21 @1100 Pharmacist Comments on Vancomycin Plan: Vancomycin dosing will take advantage of [employer] as a clinical decision support tool that uses Bayesian modeling to calculate individual patient's pharmacokinetic parameters and forecast the patient's drug concentration time course with the target goal AUC 24 range of 400 - 600 mg/L/hr.
[2021-02-27 07:28] LABS: Glucose, Whole Blood 356 mg/dL (60-115)
[2021-02-27 08:28] LABS: Estimated Average Glucose 166 mg/dL; Hemoglobin A1c % 7.4 %
[2021-02-27] MEDS: Insulin Lispro 100 UNIT/ML 3 ML VIAL SUBCUT ×3 (08:44→16:59)
[2021-02-27] MEDS: 0.9 % Sodium Chloride Flush 3 ML SYRINGE IVFLUSH ×3 (08:44→23:49)
[2021-02-27] MEDS: Nicotine 14 MG PATCH.TD24 TRANSDERMA (08:44)
--- NOTE | 2021-02-27 08:51 | PC.NURSE ---
Pt alert oriented, feels overall tired, periorbitak swelling noted. t also noted with redness to upper back and shoulders, war to touch. no open areas. Pt reports sx intermittently since Wednesday. NSR on monitor. occasional PVCs noted. Nicotine patch to right upper arm, SSI given per order. Dr Barroso messaged regarding last POC.
--- NOTE | 2021-02-27 09:03 | P.CONCA_ITS ---
History of Present Illness History of Present Illness Date of Service: 02/27/21 Requesting physician: Gabriele Fernando Chief complaint: Bacteremia, +trop Narrative: 60-year-old gentleman who is presenting from home with fever and had outpatient blood cultures which were abnormal. He also has low level troponin abnormality. He is denying any chest discomfort or shortness of breath. He said he was just not feeling well which led to blood cultures being drawn. He is on antibiotics at this point. We were asked to comment about a troponin leak. [facility] Past Medical History Medical History Asthma Social History Social History Alcohol intake: current Alcohol intake frequency: 0-2 drinks per day Alcohol type: beer Patient Tobacco Use Status: Current everyday Tobacco user Use of substances other than those prescribed or required for medical reasons: No Advance Directives: No Advance Directives Information Provided: Yes service: No Current occupational status: employed Meds Allergies Allergy/AdvReac Type Severity Reaction Status Date / Time penicillin V Allergy Severe Swollen Verified 02/26/21 22:55 face Penicillins [PENICILLINS] Allergy Severe ANGIOEDEMA Verified 02/26/21 22:55 shellfish derived Allergy Severe ANAPHYLAXIS Verified 02/26/21 22:55 [SHELLFISH DERIVED] Active Medications: Current Medications Generic Name Dose Route Start Last Admin Trade Name Freq PRN Reason Stop Dose Admin Acetaminophen 650 mg 02/27/21 02:58 Acetaminophen 325 Mg Tablet PO Q6H PRN Pain, Mild (Pain Scale 1-3) Albuterol/Ipratropium 3 ml 02/27/21 02:57 Albuterol/Iprat 2.5/0.5mg 3 Ml Ampul.Neb INHALE RQ4H PRN Shortness of Breath/Wheezing Benzocaine 1 lozenge 02/27/21 02:57 Throat Lozenge, Medicated Lozenge MUCOUS MEM Q2H PRN Sore Throat Dextrose 25 gm 02/27/21 05:01 Dextrose 50 % 25 Gm/50 Ml Vial IVPUSH Q15M PRN per Hypoglycemia Standing Ord. Protocol Glucose 15 gm 02/27/21 05:01 Glucose Gel 15 Gm Gel..Gram. PO Q15M PRN per Hypoglycemia Standing Ord. Protocol Ceftriaxone Sodium 1 gm/ 50 mls @ 100 mls/hr 02/28/21 00:00 Sodium Chloride IV Q24H ELANA Sodium Chloride 1,000 mls @ 100 mls/hr 02/27/21 03:00 02/27/21 03:54 Ns IVCONT 100 mls/hr .Q10H ELANA Administration Vancomycin HCl 750 mg/ Sodium 265 mls @ 265 mls/hr 02/27/21 12:00 Chloride IV Q12H [facility] Insulin Human Lispro 0 unit 02/27/21 07:30 02/27/21 08:44 Insulin Lispro 100 Unit/Ml 3 Ml Vial SUBCUT 10 unit QIDACHS [facility] Administration Protocol Melatonin 6 mg 02/27/21 02:58 Melatonin 3 Mg Tablet PO BEDTIME PRN Insomnia Nicotine 14 mg 02/27/21 09:00 02/27/21 08:44 Nicotine 14 Mg Patch.Td24 TRANSDERMA 14 mg DAILY [facility] Administration Pharmacy Consult 1 each 02/26/21 23:09 Consult Rx Perform Med Rec MISCELLANE ONCE PRN Consult order Pharmacy Consult 1 each 02/27/21 02:56 Consult Rx Vancomycin Dosing MISCELLANE DAILY PRN Consult order Senna 17.2 mg 02/27/21 02:58 Sennosides 8.6 Mg Tablet PO BEDTIME PRN Constipation Sodium Chloride 3 ml 02/27/21 08:00 02/27/21 08:44 0.9 % Sodium Chloride Flush 3 Ml Syringe IVFLUSH 3 ml QSHIFT [facility] Administration Home Medications Medication Instructions Recorded Confirmed Last Taken Type cetirizine 10 mg tablet 1 tab PO DAILY 02/27/21 02/27/21 Unknown History doxycycline hyclate 100 mg capsule 1 cap PO BID 02/27/21 02/27/21 Unknown History fluticasone propionate 50 1 spray INTRANASAL BID 02/27/21 02/27/21 Unknown History mcg/actuation nasal spray,suspension Physical Exam Vital Signs: Vital Signs: Last Vital Signs Temp 98.4 F 02/27/21 08:49 Pulse 90 02/27/21 08:49 Resp 20 02/27/21 08:49 BP 136/82 02/27/21 08:49 Pulse Ox 95 02/27/21 08:49 Body Mass Index 26.0 GENERAL APPEARANCE: in no acute distress, pleasant. NECK: no carotid bruit, no jugular venous distention. SKIN: no suspicious lesions, warm and dry. HEART: no murmurs, regular rate and rhythm. LUNGS: clear to auscultation bilaterally. ABDOMEN: soft, nontender. EXTREMITIES: no edema. PERIPHERAL PULSES: equal. NEUROLOGIC: No gross deficits, AAO X 3 Results Labs and Meds Result diagrams: 02/27/21 05:13 02/27/21 05:13 Lab results: Laboratory Results - last 24 hr 02/26/21 02/26/21 02/26/21 23:39 23:39 23:39 WBC 15.3 H RBC 4.73 Hgb 14.4 Hct 42.1 MCV 89.0 MCH 30.4 MCHC 34.2 RDW 13.4 Plt Count 201 MPV 9.9 Immature Gran % (Auto) 0.6 H Neut % (Auto) 78.7 H Lymph % (Auto) 10.8 L [place] % (Auto) 9.6 Eos % (Auto) 0.1 Baso % (Auto) 0.2 Lymph # (Auto) 1.7 [place] # (Auto) 1.5 H Eos # (Auto) 0.0 Baso # (Auto) 0.0 Abs Immat Gran (auto) 0.09 H Absolute Neuts (auto) 12.1 H Absolute Nucleated RBC 0.000 Nucleated RBC % (auto) 0.0 Smear Tech's Comments ESR Sodium 136 Potassium 4.2 Chloride 98 Carbon Dioxide 27 Anion Gap 15 BUN 6 L Creatinine 0.92 Estim Creat Clear Calc 90.9 Estimated GFR > 60 POC Glucose Random Glucose 195 H Estimat Average Glucose Hemoglobin A1c % Lactic Acid 1.4 Calcium 8.3 L D Magnesium 2.2 Total Bilirubin 0.6 Direct Bilirubin 0.2 AST 35 ALT 31 Alkaline Phosphatase 82 Troponin I High Sens C-Reactive Protein 29.98 H Total Protein 7.1 Albumin 3.6 Urine Color Urine Appearance Urine pH Ur Specific [place] Urine Protein Urine Glucose (UA) Urine Ketones Urine Blood Urine Nitrite Ur Leukocyte Esterase Urine RBC Urine WBC Ur Squamous Epith Cells Urine Bacteria S. pyogenes GrpA [place] 02/26/21 02/27/21 02/27/21 23:39 01:44 01:44 WBC RBC Hgb Hct MCV MCH MCHC RDW Plt Count MPV Immature Gran % (Auto) Neut % (Auto) Lymph % (Auto) [place] % (Auto) Eos % (Auto) Baso % (Auto) Lymph # (Auto) [place] # (Auto) Eos # (Auto) Baso # (Auto) Abs Immat Gran (auto) Absolute Neuts (auto) Absolute Nucleated RBC Nucleated RBC % (auto) Smear Tech's Comments ESR 69 H Sodium Potassium Chloride Carbon Dioxide Anion Gap BUN Creatinine Estim Creat Clear Calc Estimated GFR POC Glucose Random Glucose Estimat Average Glucose Hemoglobin A1c % Lactic Acid Calcium Magnesium Total Bilirubin Direct Bilirubin AST ALT Alkaline Phosphatase Troponin I High Sens C-Reactive Protein Total Protein Albumin Urine Color STRAW Urine Appearance CLEAR Urine pH 5.5 Ur Specific [place] <= 1.005 Urine Protein TRACE Urine Glucose (UA) NEG Urine Ketones NEG Urine Blood 1+ H Urine Nitrite NEG Ur Leukocyte Esterase NEG Urine RBC 0-2 Urine WBC 0-2 Ur Squamous Epith Cells TRACE Urine Bacteria NONE S. pyogenes GrpA [place] Negative 02/27/21 02/27/21 02/27/21 04:58 05:13 05:13 WBC 14.0 H RBC 4.77 Hgb 14.4 Hct 42.6 MCV 89.3 MCH 30.2 MCHC 33.8 RDW 13.6 Plt Count 202 MPV 9.7 Immature Gran % (Auto) 0.7 H Neut % (Auto) 91.5 H Lymph % (Auto) 5.6 L [place] % (Auto) 2.1 Eos % (Auto) 0.0 Baso % (Auto) 0.1 Lymph # (Auto) 0.8 L [place] # (Auto) 0.3 Eos # (Auto) 0.0 Baso # (Auto) 0.0 Abs Immat Gran (auto) 0.10 H Absolute Neuts (auto) 12.8 H Absolute Nucleated RBC 0.000 Nucleated RBC % (auto) 0.0 Smear Tech's Comments VERIFIED ESR Sodium Potassium Chloride Carbon Dioxide Anion Gap BUN Creatinine Estim Creat Clear Calc Estimated GFR POC Glucose 412 H* Random Glucose Estimat Average Glucose 166 Hemoglobin A1c % 7.4 Lactic Acid Calcium Magnesium Total Bilirubin Direct Bilirubin AST ALT Alkaline Phosphatase Troponin I High Sens C-Reactive Protein Total Protein Albumin Urine Color Urine Appearance Urine pH Ur Specific [place] Urine Protein Urine Glucose (UA) Urine Ketones Urine Blood Urine Nitrite Ur Leukocyte Esterase Urine RBC Urine WBC Ur Squamous Epith Cells Urine Bacteria S. pyogenes GrpA [place] 02/27/21 02/27/21 02/27/21 05:13 05:13 07:25 WBC RBC Hgb Hct MCV MCH MCHC RDW Plt Count MPV Immature Gran % (Auto) Neut % (Auto) Lymph % (Auto) [place] % (Auto) Eos % (Auto) Baso % (Auto) Lymph # (Auto) [place] # (Auto) Eos # (Auto) Baso # (Auto) Abs Immat Gran (auto) Absolute Neuts (auto) Absolute Nucleated RBC Nucleated RBC % (auto) Smear Tech's Comments ESR Sodium 135 Potassium 4.4 Chloride 101 Carbon Dioxide 26 Anion Gap 12 BUN 8 L Creatinine 1.06 Estim Creat Clear Calc 78.9 Estimated GFR > 60 POC Glucose 356 H* Random Glucose 424 H* Estimat Average Glucose Hemoglobin A1c % Lactic Acid Calcium 8.3 L Magnesium Total Bilirubin Direct Bilirubin AST ALT Alkaline Phosphatase Troponin I High Sens 35.7 H* C-Reactive Protein Total Protein Albumin Urine Color Urine Appearance Urine pH Ur Specific [place] Urine Protein Urine Glucose (UA) Urine Ketones Urine Blood Urine Nitrite Ur Leukocyte Esterase Urine RBC Urine WBC Ur Squamous Epith Cells Urine Bacteria S. pyogenes GrpA [place] Imaging Radiologist's impression: Impressions Abdomen/Pelvis CT 02/27/21 00:00 IMPRESSION: 1. Mural prominence of the urinary bladder, which could be due to underdistention versus cystitis. 2. Coronary artery calcifications. Correlation with cardiac risk factors is recommended. 3. Bilateral fat-containing inguinal hernias. Chest CT 02/27/21 00:00 IMPRESSION: 1. Mural prominence of the urinary bladder, which could be due to underdistention versus cystitis. 2. Coronary artery calcifications. Correlation with cardiac risk factors is recommended. 3. Bilateral fat-containing inguinal hernias. Face CT 02/27/21 01:22 IMPRESSION: Mild symmetric periorbital edema. No additional acute findings identified. Assessment and Plan (1) Bacteremia: Status: Acute (2) Elevated troponin: Status: Acute 60-year-old gentleman who is presenting with fever and bacteremia. He has mildly abnormal troponin levels. He has no chest discomfort or shortness of breath. Imaging and labs were reviewed. I think likely explanation for his mild troponin is type 2 injury due to infection. No further workup is required. Signing off for now. Thank you for allowing me to participate in the care of your patient. Please feel free to contact me if you have any questions. Procedures Date of Service Date of Service: 02/27/21
--- NOTE | 2021-02-27 09:29 | PC.NURSE ---
Cardiology at bedside for consult
--- NOTE | 2021-02-27 10:39 | PC.NURSE ---
Dr Barroso to bedside for assessment
[2021-02-27 11:30] LABS: Troponin-I High Sensitivity 26.6 ng/L (<3.5-35.0)
[2021-02-27 11:44] LABS: Glucose, Whole Blood 309 mg/dL (60-115)
[2021-02-27] MEDS: vancomycin HCL 750 MG in 0.9 % Sodium Chloride 250 ML 265 MG IV (11:59)
--- NOTE | 2021-02-27 12:37 | MHC.CM.PN ---
Met with patient in regards to discharge planning. Patient lives with his daughter, ambulates independently and had no services prior to coming to the ER. PCP is at [facility]. Patient denies having a HCP. Information provided. Patient declining to complete one at this time. Patient denies having any Covid vaccines. Patient's car is in the parking lot and he anticipates being able to drive himself. Continue to monitor for d/c needs.
--- NOTE | 2021-02-27 14:47 | P.PNIM_ITS ---
Subjective Subjective Date of Service: 02/27/21 Interval History: Afebrile x 24h Has false teeth No skin breaks/abscesses No cough C/o facial swelling Review of Systems Review of Systems: Yes all other systems are reviewed and are negative Physical Exam Vital Signs: Vital Signs: Last Vital Signs Temp 98.4 F 02/27/21 08:49 Pulse 90 02/27/21 08:49 Resp 20 02/27/21 08:49 BP 136/82 02/27/21 08:49 Pulse Ox 95 02/27/21 08:49 Body Mass Index 26.0 Gen: in no acute distress HEENT: sclera anicteric, crusting at lateral corners of eyes, periorbital swelling Neck: supple Lungs: clear to auscultation bilaterally Heart: regular rate and rhythm, no murmurs Abd: soft, non-tender, non-distended Ext: no edema Skin: warm/well-perfused Neuro: alert and oriented x3, no focal findings Psych: appropriate affect Objective Data Active Medications Acetaminophen (Acetaminophen 325 Mg Tablet) 650 mg PO Q6H PRN PRN Reason: Pain, Mild (Pain Scale 1-3) Albuterol/Ipratropium (Albuterol/Iprat 2.5/0.5mg 3 Ml Ampul.Neb) 3 ml INHALE RQ4H PRN PRN Reason: Shortness of Breath/Wheezing Benzocaine (Throat Lozenge, Medicated Lozenge) 1 lozenge MUCOUS MEM Q2H PRN PRN Reason: Sore Throat Dextrose (Dextrose 50 % 25 Gm/50 Ml Vial) 25 gm IVPUSH Q15M PRN; Protocol PRN Reason: per Hypoglycemia Standing Ord. Fluticasone Propionate (Fluticasone Propionate Nasal 16 Gm [place]) 1 spray NOSTRIL-B BID ELANA Glucose (Glucose Gel 15 Gm Gel..Gram.) 15 gm PO Q15M PRN; Protocol PRN Reason: per Hypoglycemia Standing Ord. Ceftriaxone Sodium 1 gm/ (Sodium Chloride) 50 mls @ 100 mls/hr IV Q24H [facility] Sodium Chloride (Ns) 1,000 mls @ 100 mls/hr IVCONT .Q10H [facility] Last Admin: 02/27/21 13:22 Dose: 100 mls/hr Documented by: VENUS Vancomycin HCl 750 mg/ Sodium (Chloride) 265 mls @ 265 mls/hr IV Q12H [facility] Last Infusion: 02/27/21 13:20 Dose: 0 mls/hr Documented by: VENUS Insulin Human Lispro (Insulin Lispro 100 Unit/Ml 3 Ml Vial) 0 unit SUBCUT QIDACHS [facility]; Protocol Last Admin: 02/27/21 11:59 Dose: 8 unit Documented by: VENUS Loratadine (Loratadine 10 Mg Tablet) 10 mg PO DAILY [facility] Melatonin (Melatonin 3 Mg Tablet) 6 mg PO BEDTIME PRN PRN Reason: Insomnia Nicotine (Nicotine 14 Mg Patch.Td24) 14 mg TRANSDERMA DAILY [facility] Last Admin: 02/27/21 08:44 Dose: 14 mg Documented by: VENUS Pharmacy Consult (Consult Rx Perform Med Rec) 1 each MISCELLANE ONCE PRN PRN Reason: Consult order Pharmacy Consult (Consult Rx Vancomycin Dosing) 1 each MISCELLANE DAILY PRN PRN Reason: Consult order Senna (Sennosides 8.6 Mg Tablet) 17.2 mg PO BEDTIME PRN PRN Reason: Constipation Sodium Chloride (0.9 % Sodium Chloride Flush 3 Ml Syringe) 3 ml IVFLUSH QSHIFT [facility] Last Admin: 02/27/21 08:44 Dose: 3 ml Documented by: VENUS Labs CBC & Chem 7: 02/27/21 05:13 02/27/21 05:13 Labs: Laboratory Results - last 24 hr 02/26/21 02/26/21 02/26/21 23:39 23:39 23:39 MCV 89.0 MCH 30.4 MCHC 34.2 RDW 13.4 Plt Count 201 MPV 9.9 Immature Gran % (Auto) 0.6 H Neut % (Auto) 78.7 H Lymph % (Auto) 10.8 L [place] % (Auto) 9.6 Eos % (Auto) 0.1 Baso % (Auto) 0.2 Lymph # (Auto) 1.7 [place] # (Auto) 1.5 H Eos # (Auto) 0.0 Baso # (Auto) 0.0 Abs Immat Gran (auto) 0.09 H Absolute Neuts (auto) 12.1 H Absolute Nucleated RBC 0.000 Nucleated RBC % (auto) 0.0 Smear Tech's Comments ESR Anion Gap 15 Estim Creat Clear Calc 90.9 Estimated GFR > 60 POC Glucose Random Glucose 195 H Estimat Average Glucose Hemoglobin A1c % Lactic Acid 1.4 Calcium 8.3 L D Magnesium 2.2 Total Bilirubin 0.6 Direct Bilirubin 0.2 AST 35 ALT 31 Alkaline Phosphatase 82 Troponin I High Sens C-Reactive Protein 29.98 H Total Protein 7.1 Albumin 3.6 Urine Color Urine Appearance Urine pH Ur Specific [place] Urine Protein Urine Glucose (UA) Urine Ketones Urine Blood Urine Nitrite Ur Leukocyte Esterase Urine RBC Urine WBC Ur Squamous Epith Cells Urine Bacteria S. pyogenes GrpA [place] 02/26/21 02/27/21 02/27/21 23:39 01:44 01:44 MCV MCH MCHC RDW Plt Count MPV Immature Gran % (Auto) Neut % (Auto) Lymph % (Auto) [place] % (Auto) Eos % (Auto) Baso % (Auto) Lymph # (Auto) [place] # (Auto) Eos # (Auto) Baso # (Auto) Abs Immat Gran (auto) Absolute Neuts (auto) Absolute Nucleated RBC Nucleated RBC % (auto) Smear Tech's Comments ESR 69 H Anion Gap Estim Creat Clear Calc Estimated GFR POC Glucose Random Glucose Estimat Average Glucose Hemoglobin A1c % Lactic Acid Calcium Magnesium Total Bilirubin Direct Bilirubin AST ALT Alkaline Phosphatase Troponin I High Sens C-Reactive Protein Total Protein Albumin Urine Color STRAW Urine Appearance CLEAR Urine pH 5.5 Ur Specific [place] <= 1.005 Urine Protein TRACE Urine Glucose (UA) NEG Urine Ketones NEG Urine Blood 1+ H Urine Nitrite NEG Ur Leukocyte Esterase NEG Urine RBC 0-2 Urine WBC 0-2 Ur Squamous Epith Cells TRACE Urine Bacteria NONE S. pyogenes GrpA [place] Negative 02/27/21 02/27/21 02/27/21 04:58 05:13 05:13 MCV 89.3 MCH 30.2 MCHC 33.8 RDW 13.6 Plt Count 202 MPV 9.7 Immature Gran % (Auto) 0.7 H Neut % (Auto) 91.5 H Lymph % (Auto) 5.6 L [place] % (Auto) 2.1 Eos % (Auto) 0.0 Baso % (Auto) 0.1 Lymph # (Auto) 0.8 L [place] # (Auto) 0.3 Eos # (Auto) 0.0 Baso # (Auto) 0.0 Abs Immat Gran (auto) 0.10 H Absolute Neuts (auto) 12.8 H Absolute Nucleated RBC 0.000 Nucleated RBC % (auto) 0.0 Smear Tech's Comments VERIFIED ESR Anion Gap Estim Creat Clear Calc Estimated GFR POC Glucose 412 H* Random Glucose Estimat Average Glucose 166 Hemoglobin A1c % 7.4 Lactic Acid Calcium Magnesium Total Bilirubin Direct Bilirubin AST ALT Alkaline Phosphatase Troponin I High Sens C-Reactive Protein Total Protein Albumin Urine Color Urine Appearance Urine pH Ur Specific [place] Urine Protein Urine Glucose (UA) Urine Ketones Urine Blood Urine Nitrite Ur Leukocyte Esterase Urine RBC Urine WBC Ur Squamous Epith Cells Urine Bacteria S. pyogenes GrpA [place] 02/27/21 02/27/21 02/27/21 05:13 05:13 07:25 MCV MCH MCHC RDW Plt Count MPV Immature Gran % (Auto) Neut % (Auto) Lymph % (Auto) [place] % (Auto) Eos % (Auto) Baso % (Auto) Lymph # (Auto) [place] # (Auto) Eos # (Auto) Baso # (Auto) Abs Immat Gran (auto) Absolute Neuts (auto) Absolute Nucleated RBC Nucleated RBC % (auto) Smear Tech's Comments ESR Anion Gap 12 Estim Creat Clear Calc 78.9 Estimated GFR > 60 POC Glucose 356 H* Random Glucose 424 H* Estimat Average Glucose Hemoglobin A1c % Lactic Acid Calcium 8.3 L Magnesium Total Bilirubin Direct Bilirubin AST ALT Alkaline Phosphatase Troponin I High Sens 35.7 H* C-Reactive Protein Total Protein Albumin Urine Color Urine Appearance Urine pH Ur Specific [place] Urine Protein Urine Glucose (UA) Urine Ketones Urine Blood Urine Nitrite Ur Leukocyte Esterase Urine RBC Urine WBC Ur Squamous Epith Cells Urine Bacteria S. pyogenes GrpA [place] 02/27/21 02/27/21 10:58 11:41 MCV MCH MCHC RDW Plt Count MPV Immature Gran % (Auto) Neut % (Auto) Lymph % (Auto) [place] % (Auto) Eos % (Auto) Baso % (Auto) Lymph # (Auto) [place] # (Auto) Eos # (Auto) Baso # (Auto) Abs Immat Gran (auto) Absolute Neuts (auto) Absolute Nucleated RBC Nucleated RBC % (auto) Smear Tech's Comments ESR Anion Gap Estim Creat Clear Calc Estimated GFR POC Glucose 309 H Random Glucose Estimat Average Glucose Hemoglobin A1c % Lactic Acid Calcium Magnesium Total Bilirubin Direct Bilirubin AST ALT Alkaline Phosphatase Troponin I High Sens 26.6 C-Reactive Protein Total Protein Albumin Urine Color Urine Appearance Urine pH Ur Specific [place] Urine Protein Urine Glucose (UA) Urine Ketones Urine Blood Urine Nitrite Ur Leukocyte Esterase Urine RBC Urine WBC Ur Squamous Epith Cells Urine Bacteria S. pyogenes GrpA [place] Assessment and Plan (1) Bacteremia: Status: Acute Assessment and Plan: hospital d#1 60yo M with asthma, tobacco abuse, presented to ED 02/23/21 with 2d of fever, called back with GPC bacteremia, noted to be septic # sepsis # GPC bacteremia - ?source. continue vanc/pip-leanne. surveillance BCx. TTE. ID consultation. HIV serology. # troponin elevation - not ACS, likely due to sepsis # new dx DM2, A1c 7.4 - correction-dose lispro; MTF upon discharge # asthma - prn nebs # tobacco abuse - NRT # VTE ppx - LMWH Quality Stroke Does the patient have a stroke diagnosis?: No VTE Prior VTE?: No VTE Risk Level:: Medical - moderate - high VTE Device Contraindication: N/A - Device Ordered VTE Drug Contraindication: Treatment Not Indicated
[2021-02-27 16:26] LABS: Glucose, Whole Blood 256 mg/dL (60-115)
[2021-02-27 19:09] LABS: Glucose, Whole Blood 264 mg/dL (60-115)
--- NOTE | 2021-02-27 21:21 | MHC.CM.PN ---
CM met with admitted patient, with bed assignment 467. Pt lives with daughter. Pt is employed. Uses no DME. No services. No HCP on file. HCP reviewed, completed and signed. HCP/daughter Kojo Hilton ([phone]). Pt has NO COVID VACCINES. Please do not address again with pt. Pt states he will think about it when he is better and not now. PCP is [facility] Dr. Boyd. D/C plan is home. Pt may need home IV therapy and VNA services per pt's discussion with MD. Transportation by self or family. CM will follow for d/c needs.
--- NOTE | 2021-02-27 22:27 | PC.NURSE ---
This RN attempted report to HOWARD Ireland at ~2100. Beka unable to take report at that time. Per new workflow, pt to be brought to unit with ED summary and ED RN to give bedside report. Pt transferred to floor, bedside report given to HOWARD Ireland and pt transferred from ED tele monitor to telepack.
[2021-02-27 22:38] LABS: Glucose, Whole Blood 310 mg/dL (60-115)
[2021-02-27 23:54] LABS: Glucose, Whole Blood 304 mg/dL (60-115)
[2021-02-28] VITALS (10 sets, daily range): BP systolic 129–160; BP diastolic 83–104; PULSE 86–97; RESP 14–20; TEMP 36.2–36.9; O2SAT 90–98
[2021-02-28] MEDS: Insulin Lispro 100 UNIT/ML 3 ML VIAL SUBCUT ×5 (00:01→20:31)
[2021-02-28] MEDS: 0.9 % Sodium Chloride 1,000 ML 100 ML IVCONT ×3 (00:03→20:31)
[2021-02-28] MEDS: Albuterol/Iprat 2.5/0.5MG 3 ML AMPUL.NEB INHALE ×2 (00:46→15:50)
[2021-02-28] MEDS: cefTRIAXone sodium 1 GM in 0.9 % Sodium Chloride 50 ML IV (00:55)
[2021-02-28] MEDS: vancomycin HCL 750 MG in 0.9 % Sodium Chloride 250 ML 265 MG IV (01:26)
[2021-02-28 05:42] LABS: Glucose, Whole Blood 253 mg/dL (60-115)
[2021-02-28 07:00] LABS: Hematocrit 39.9 % (42-52); Hemoglobin 12.8 g/dl (14.0-18.0); Mean Corpuscular HGB Conc 32.1 g/dl (31.0-36.0); Mean Corpuscular Hemoglobin 29.8 pg (27.0-33.0); Mean Corpuscular Volume 92.8 fL (80-98); Mean Platelet Volume 9.6 fL (9.4-12.4); Platelet Count 218 X10*3/uL (160-400); Red Cell Distribution Width 14.2 % (11.0-16.0); White Blood Count 12.4 X10*3/uL (4.8-10.8)
--- NOTE | 2021-02-28 07:30 | CA_ITS ---
Transthoracic Echocardiogram Patient (Last, First, Middle): Jerry Sumner D Gender: Male Date of : 1960 Age: 60 Procedure Date: 02/28/2021 Procedure Type: Transthoracic [place] [facility] [place]: 180.34 cm Weight: 84.82 kg BSA: 2.05 m2 Heart Rate: bpm BP: 138 / 90 mmHg Tsa Screener: TREVER/JIE Referring MD: Gabriele Fernando MD Symptoms: high trops Study Quality: Fair ECG Rhythm: Sinus Conclusions: - Mildly increased left ventricular cavity size. There is normal left ventricular wall thickness. The left ventricular systolic function is moderately decreased. The visually estimated ejection fraction is between 30-35%. - Mildly increased right ventricular cavity size. There is normal right ventricular systolic function. - There is mild dilatation of the ascending aorta. Findings Left Ventricle Mildly increased left ventricular cavity size. There is normal left ventricular wall thickness. The left ventricular systolic function is moderately decreased. The visually estimated ejection fraction is between 30 35%. There is moderate global hypokinesis. Abnormal diastolic function is noted. Elevated filling pressures. Right Ventricle Mildly increased right ventricular cavity size. There is normal right ventricular systolic function. Atria The left atrium is mildly dilated. The right atrium is moderately dilated. Aortic Valve The aortic valve structure and function is likely normal. There is no aortic valve stenosis. There is trace (trivial) aortic valve regurgitation. Mitral Valve The mitral valve appears normal. There is trace mitral valve regurgitation. There is no mitral valve stenosis. Pulmonic Valve Normal pulmonic valve structure and function. There is trace pulmonic valve regurgitation. Tricuspid Valve Normal tricuspid valve structure and function. There is trace tricuspid valve regurgitation. Normal right atrial pressure. There is no evidence of pulmonary hypertension. Great Vessels There is mild dilatation of the ascending aorta. The visualized portions of the pulmonary artery and branches are normal. Venous The inferior vena cava is normal in size and collapses greater than 50% with inspiration. Pericardium/Pleural Normal pericardial structure. There is no evidence of pericardial effusion. Prior Study Comparison No prior study available for comparison. Measurements 2D Linear Measurements IVSd: 1.02 0.6-0.9/0.6-1.0 cm LVIDd: 6.20 3.9-5.3/4.2-5.9 cm LVIDd Index: 3.02 2.4-3.2/2.2-3.1 cm/m2 LVIDs: 4.98 2.0-3.6 cm LVPWd: 1.02 0.7-1.1 cm Ao Root: 3.90 2.1-3.5 cm LA Diam: 5.80 2.7-3.8/3.0-4.0 cm LAIDs Index: 2.83 1.5-2.3 cm/m2 LV Mass: 333.99 67-162/88-224 g LV Mass Index: 162.92 43-95/49-115 g/m2 LVOT Diam: 2.10 3.0+(-)1.3 cm 2D Systolic Function EF 4C: 37.80 >55% EF 2C: 32.70 >55% EF BiP: 37.00 >55% Mitral Valve MV Pk E: 1.16 MV Decel Time: 110.00 E'Lateral: 6.42 E'Medial: 6.31 E/E' Med: 18.40 E/E' Lat: 18.10 PHT: 32.00 MVA PHT: 6.88 Decel Warrick: 10.60 Aortic Valve AoV Pk Kelvin: 1.37 AoV Mn Kelvin: 1.05 AoV VTI: 0.24 AoV Pk Grad: 8.00 Aov Mn Grad: 5.00 ROSE Cont.VTI: 2.65 LVOT LVOT Pk Kelvin: 1.08 LVOT Mn Kelvin: 0.78 LVOT VTI: 0.19 LVOT Pk Grad: 5.00 LVOT Mn Grad: 3.00 LVOT Diam: 2.10 LVOT Area: 3.46 Diastolic Function MV Pk E: 1.16 E'Medial: 6.31 E/E' Med: 18.40 E' Laterial: 6.42 E/E' Lat: 18.10 Tricuspid Valve RVSP: 35.00 Great Vessels Aorta Ao Root-2D: 3.90 2.0-3.7 cm Ao Asc: 3.80 2.1-3.4 cm Updated in Other Vendor System with Status of Final Jose Chambers MD electronically signed on 02/28/2021 9:09:30 PM with status of Final
[2021-02-28 07:33] LABS: Anion Gap 11 (12-20); Blood Urea Nitrogen 16 mg/dL (9-16); Calcium 8.7 mg/dL (8.4-10.2); Carbon Dioxide 30 mmol/L (22-29); Chloride 106 mmol/L (96-108); Creatinine Clr Calc Pharmacy 73.3; Estimated Glomerular Filt Rate > 60; Glucose Random 298 mg/dL (60-115); Potassium 5.2 mmol/L (3.3-5.1); Rheumatoid Factor < 15.0 IU/mL (<15.0); Sodium 142 mmol/L (135-145)
[2021-02-28] MEDS: 0.9 % Sodium Chloride Flush 3 ML SYRINGE IVFLUSH ×2 (07:44→20:31)
[2021-02-28] MEDS: Nicotine 14 MG PATCH.TD24 TRANSDERMA (07:45)
[2021-02-28] MEDS: Loratadine 10 MG TABLET PO (07:45)
[2021-02-28 08:01] LABS: Glucose, Whole Blood 304 mg/dL (60-115)
[2021-02-28 08:23] LABS: HIV AB/AG Nonreactive (Nonreactive); HIV Num 1 0.05 S/CO (0.00-0.99)
--- NOTE | 2021-02-28 09:05 | P.PNIM_ITS ---
Subjective Subjective Date of Service: 02/28/21 Interval History: Fever resolved Facial swelling improved Review of Systems Review of Systems: Yes all other systems are reviewed and are negative Physical Exam Vital Signs: Vital Signs: Last Vital Signs Temp 97.7 F 02/28/21 08:00 Pulse 92 02/28/21 08:00 Resp 20 02/28/21 08:00 BP 132/88 02/28/21 08:00 Pulse Ox 94 02/28/21 08:00 Body Mass Index 26.0 Gen: in no acute distress HEENT: sclera anicteric, crusting at lateral corners of eyes, periorbital swelling Neck: supple Lungs: clear to auscultation bilaterally Heart: regular rate and rhythm, no murmurs Abd: soft, non-tender, non-distended Ext: no edema Skin: warm/well-perfused Neuro: alert and oriented x3, no focal findings Psych: appropriate affect Objective Data Active Medications Acetaminophen (Acetaminophen 325 Mg Tablet) 650 mg PO Q6H PRN PRN Reason: Pain, Mild (Pain Scale 1-3) Albuterol/Ipratropium (Albuterol/Iprat 2.5/0.5mg 3 Ml Ampul.Neb) 3 ml INHALE RQ4H PRN PRN Reason: Shortness of Breath/Wheezing Last Admin: 02/28/21 00:46 Dose: 3 ml Documented by: DYLLAN Benzocaine (Throat Lozenge, Medicated Lozenge) 1 lozenge MUCOUS MEM Q2H PRN PRN Reason: Sore Throat Dextrose (Dextrose 50 % 25 Gm/50 Ml Vial) 25 gm IVPUSH Q15M PRN; Protocol PRN Reason: per Hypoglycemia Standing Ord. Fluticasone Propionate (Fluticasone Propionate Nasal 16 Gm [place]) 1 spray NOSTRIL-B BID [facility] Last Admin: 02/28/21 07:45 Dose: Not Given Documented by: TIFFANIE Non-Admin Reason: Med Not Available Glucose (Glucose Gel 15 Gm Gel..Gram.) 15 gm PO Q15M PRN; Protocol PRN Reason: per Hypoglycemia Standing Ord. Ceftriaxone Sodium 1 gm/ (Sodium Chloride) 50 mls @ 100 mls/hr IV Q24H [facility] Last Infusion: 02/28/21 01:59 Dose: 0 mls/hr Documented by: BRODIELN Sodium Chloride (Ns) 1,000 mls @ 100 mls/hr IVCONT .Q10H [facility] Last Admin: 02/28/21 00:03 Dose: 100 mls/hr Documented by: MAGI Vancomycin HCl 750 mg/ Sodium (Chloride) 265 mls @ 265 mls/hr IV Q12H [facility] Last Infusion: 02/28/21 03:16 Dose: 0 mls/hr Documented by: MAGI Insulin Glargine (Insulin Glargine,Hum.Rec.Anlog 100 Unit/Ml 10 Ml Vial) 10 unit SUBCUT DAILY [facility] Insulin Human Lispro (Insulin Lispro 100 Unit/Ml 3 Ml Vial) 0 unit SUBCUT QIDAC HS [facility]; Protocol Last Admin: 02/28/21 07:44 Dose: 8 unit Documented by: TIFFANIE Loratadine (Loratadine 10 Mg Tablet) 10 mg PO DAILY [facility] Last Admin: 02/28/21 07:45 Dose: 10 mg Documented by: TIFFANIE Melatonin (Melatonin 3 Mg Tablet) 6 mg PO BEDTIME PRN PRN Reason: Insomnia Nicotine (Nicotine 14 Mg Patch.Td24) 14 mg TRANSDERMA DAILY [facility] Last Admin: 02/28/21 07:45 Dose: 14 mg Documented by: TIFFANIE Pharmacy Consult (Consult Rx Perform Med Rec) 1 each MISCELLANE ONCE PRN PRN Reason: Consult order Pharmacy Consult (Consult Rx Vancomycin Dosing) 1 each MISCELLANE DAILY PRN PRN Reason: Consult order Senna (Sennosides 8.6 Mg Tablet) 17.2 mg PO BEDTIME PRN PRN Reason: Constipation Sodium Chloride (0.9 % Sodium Chloride Flush 3 Ml Syringe) 3 ml IVFLUSH QSHIFT [facility] Last Admin: 02/28/21 07:44 Dose: 3 ml Documented by: TIFFANIE Labs CBC & Chem 7: 02/28/21 06:50 02/28/21 06:50 Labs: Laboratory Results - last 24 hr 02/27/21 02/27/21 02/27/21 10:58 11:41 16:20 MCV MCH MCHC RDW Plt Count MPV Absolute Nucleated RBC Nucleated RBC % (auto) Anion Gap Estim Creat Clear Calc Estimated GFR POC Glucose 309 H 256 H Random Glucose Calcium Troponin I High Sens 26.6 Rheumatoid Factor HIV 1&2 Ab/P24 Ag 4thGn 02/27/21 02/27/21 02/27/21 19:07 22:34 23:51 MCV MCH MCHC RDW Plt Count MPV Absolute Nucleated RBC Nucleated RBC % (auto) Anion Gap Estim Creat Clear Calc Estimated GFR POC Glucose 264 H 310 H 304 H Random Glucose Calcium Troponin I High Sens Rheumatoid Factor HIV 1&2 Ab/P24 Ag 4thGn 02/28/21 02/28/21 02/28/21 05:38 06:50 06:50 MCV 92.8 MCH 29.8 MCHC 32.1 RDW 14.2 Plt Count 218 MPV 9.6 Absolute Nucleated RBC 0.000 Nucleated RBC % (auto) 0.0 Anion Gap 11 L Estim Creat Clear Calc 73.3 Estimated GFR > 60 POC Glucose 253 H Random Glucose 298 H Calcium 8.7 Troponin I High Sens Rheumatoid Factor < 15.0 HIV 1&2 Ab/P24 Ag 4thGn 02/28/21 02/28/21 06:50 07:14 MCV MCH MCHC RDW Plt Count MPV Absolute Nucleated RBC Nucleated RBC % (auto) Anion Gap Estim Creat Clear Calc Estimated GFR POC Glucose 304 H Random Glucose Calcium Troponin I High Sens Rheumatoid Factor HIV 1&2 Ab/P24 Ag 4thGn Nonreactive Microbiology Microbiology Results: Microbiology 02/26/21 23:39 Blood Culture - Preliminary Blood - Venous No growth after 24 hours. 02/26/21 23:39 Blood Culture - Preliminary Blood - Venous No growth after 24 hours. Assessment and Plan (1) Bacteremia: Status: Acute Assessment and Plan: hospital d#2 60yo M with asthma, tobacco abuse, presented to ED 02/23/21 with 2d of fever, called back with GPC bacteremia, noted to be septic # sepsis # GPC bacteremia - ?source. continue vanco/ceftriaxone d#2 surveillance BCx. TTE. ID consultation. # troponin elevation - not ACS, likely due to sepsis per Cardiology # new dx DM2, A1c 7.4 - will add basal glargine to correction-dose lispro; MTF upon discharge # asthma - prn nebs # tobacco abuse - NRT # VTE ppx - LMWH Quality Stroke Does the patient have a stroke diagnosis?: No VTE Prior VTE?: No VTE Risk Level:: Medical - moderate - high VTE Device Contraindication: N/A - Device Ordered VTE Drug Contraindication: Treatment Not Indicated
[2021-02-28] MEDS: Insulin Glargine,Hum.rec.anlog 100 UNIT/ML 10 ML VIAL 10 UNIT SUBCUT (10:10)
[2021-02-28 11:34] LABS: Vancomycin Trough 5.4 mcg/mL (10.0-20.0)
[2021-02-28 11:50] LABS: Glucose, Whole Blood 232 mg/dL (60-115)
[2021-02-28 12:43] LABS: Glucose, Whole Blood 244 mg/dL (60-115)
[2021-02-28] MEDS: cefTRIAXone sodium 2 GM in 0.9 % Sodium Chloride 50 ML IV (12:57)
--- NOTE | 2021-02-28 15:24 | P.CNID_ITS ---
History of Present Illness Data of Consult Service Date: 02/28/21 Requesting physician: Mignon Barroso Primary Care Provider: Cresencio Boyd MD [facility] Reason for consult: Group G strep bacteremia He presents with chills and neck discomfort superficially. He had redness right neck area two weeks ago He has no fever or chills now He was called back for Group G strep bacteremia Review of Systems Review of Systems: Yes all other systems are reviewed and are negative PMFSH Past Medical History Medical History (Updated 03/03/21 @ 00:02 by Tony Zuniga) Asthma Bacteremia Chronic HFrEF (heart failure with reduced ejection fraction) Elevated troponin HFrEF (heart failure with reduced ejection fraction) Hypertension New onset type 2 diabetes mellitus RVH (right ventricular hypertrophy) Streptococcus infection, group G Tobacco abuse Tobacco abuse Social History Social History Household Members: Children Housing: Apartment Do you presently have visiting nurse or other home services: No Alcohol intake: current Alcohol intake frequency: 0-2 drinks per day Alcohol type: beer Patient Tobacco Use Status: Current everyday Tobacco user Tobacco use type: Cigarette Cigarette Packs Per Day: 0.5 Cigarettes Per Day: 10.0 e-Cigarette/Vaping Use: Never Used Second Hand Smoke Exposure: Yes service: No Current occupational status: employed Meds Allergies Allergy/AdvReac Type Severity Reaction Status Date / Time penicillin V Allergy Severe Swollen Verified 02/26/21 22:55 face Penicillins [PENICILLINS] Allergy Severe ANGIOEDEMA Verified 02/26/21 22:55 shellfish derived Allergy Severe ANAPHYLAXIS Verified 02/26/21 22:55 [SHELLFISH DERIVED] Active Medications: Current Medications Acetaminophen (Acetaminophen 325 Mg Tablet) 650 mg PO Q6H PRN PRN Reason: Pain, Mild (Pain Scale 1-3) Albuterol/Ipratropium (Albuterol/Iprat 2.5/0.5mg 3 Ml Ampul.Neb) 3 ml INHALE RQ4H PRN PRN Reason: Shortness of Breath/Wheezing Last Admin: 02/28/21 00:46 Dose: 3 ml Documented by: Benzocaine (Throat Lozenge, Medicated Lozenge) 1 lozenge MUCOUS MEM Q2H PRN PRN Reason: Sore Throat Dextrose (Dextrose 50 % 25 Gm/50 Ml Vial) 25 gm IVPUSH Q15M PRN; Protocol PRN Reason: per Hypoglycemia Standing Ord. Fluticasone Propionate (Fluticasone Propionate Nasal 16 Gm [place]) 1 spray NOSTRIL-B BID [facility] Last Admin: 02/28/21 07:45 Dose: Not Given Documented by: Glucose (Glucose Gel 15 Gm Gel..Gram.) 15 gm PO Q15M PRN; Protocol PRN Reason: per Hypoglycemia Standing Ord. Sodium Chloride (Ns) 1,000 mls @ 100 mls/hr IVCONT .Q10H [facility] Last Infusion: 02/28/21 14:23 Dose: 0 mls/hr Documented by: Ceftriaxone Sodium 2 gm/ (Sodium Chloride) 50 mls @ 100 mls/hr IV Q24H [facility] Last Infusion: 02/28/21 13:36 Dose: Infused Documented by: Insulin Glargine (Insulin Glargine,Hum.Rec.Anlog 100 Unit/Ml 10 Ml Vial) 10 unit SUBCUT DAILY [facility] Last Admin: 02/28/21 10:10 Dose: 10 unit Documented by: Insulin Human Lispro (Insulin Lispro 100 Unit/Ml 3 Ml Vial) 0 unit SUBCUT QIDACHS [facility]; Protocol Last Admin: 02/28/21 11:56 Dose: 4 unit Documented by: Loratadine (Loratadine 10 Mg Tablet) 10 mg PO DAILY [facility] Last Admin: 02/28/21 07:45 Dose: 10 mg Documented by: Melatonin (Melatonin 3 Mg Tablet) 6 mg PO BEDTIME PRN PRN Reason: Insomnia Nicotine (Nicotine 14 Mg Patch.Td24) 14 mg TRANSDERMA DAILY [facility] Last Admin: 02/28/21 07:45 Dose: 14 mg Documented by: Pharmacy Consult (Consult Rx Perform Med Rec) 1 each MISCELLANE ONCE PRN PRN Reason: Consult order Pharmacy Consult (Consult Rx Vancomycin Dosing) 1 each MISCELLANE DAILY PRN PRN Reason: Consult order Senna (Sennosides 8.6 Mg Tablet) 17.2 mg PO BEDTIME PRN PRN Reason: Constipation Sodium Chloride (0.9 % Sodium Chloride Flush 3 Ml Syringe) 3 ml IVFLUSH QSHIFT [facility] Last Admin: 02/28/21 07:44 Dose: 3 ml Documented by: Home Medications Medication Instructions Recorded Confirmed Last Taken Type cetirizine 10 mg tablet 1 tab PO DAILY 02/27/21 02/27/21 Unknown History fluticasone propionate 50 1 spray INTRANASAL BID 02/27/21 02/27/21 Unknown History mcg/actuation nasal spray,suspension Physical Exam Vital Signs: Vital Signs: Last Vital Signs Temp 97.5 F 02/28/21 15:05 Pulse 93 02/28/21 15:05 Resp 20 02/28/21 15:05 BP 160/104 H 02/28/21 15:05 Pulse Ox 93 02/28/21 15:05 Body Mass Index 26.0 Const: General: cooperative HENMT: Head: Yes normal to inspection Mouth: Normal oral and palatal mucosa present Resp: Effort & Inspection: normal respiratory effort Cardio: Rate: regular rate Rhythm: regular rhythm GI: Palpation (GI): Soft to palpation and nontender Skin: Other: redness right neck area resolving Results Labs CBC & Chem 7: 03/02/21 06:28 03/02/21 06:28 Labs: Short CBC 02/28/21 Range/Units 06:50 WBC 12.4 H (4.8-10.8) X10*3/uL Hgb 12.8 L (14.0-18.0) g/dl Hct 39.9 L (42-52) % Plt Count 218 (160-400) X10*3/uL BMP 02/28/21 06:50 Sodium 142 Potassium 5.2 H Chloride 106 Carbon Dioxide 30 H BUN 16 D Creatinine 1.14 Calcium 8.7 Microbiology Microbiology Results: Microbiology 02/26/21 23:39 Blood - Venous Blood Culture - Preliminary No growth after 24 hours. 02/26/21 23:39 Blood - Venous Blood Culture - Preliminary No growth after 24 hours. Assessment and Plan (1) Bacteremia: He has likely bacteremia from neck infection This is resolving and bacteremia cleared Would finish IV Ceftriaxone next day or so and then po Ceftin for 14 d total antibiotics Antibacterial skin wash
[2021-02-28 16:39] LABS: Glucose, Whole Blood 297 mg/dL (60-115)
[2021-02-28] MEDS: Acetaminophen 325 MG TABLET 650 MG PO (16:44)
[2021-02-28 20:12] LABS: Glucose, Whole Blood 371 mg/dL (60-115)
[2021-02-28] MEDS: Fluticasone Propionate Nasal 16 GM SPRAY 1 SPRAY NOSTRIL-B (20:31)
--- NOTE | 2021-02-28 21:50 | PM.EVENT ---
Event Note Date of Service: 02/28/21 Event Note: Bacteremia:
[2021-02-28] MEDS: Melatonin 3 MG TABLET 6 MG PO (22:59)
[2021-03-01] VITALS (8 sets, daily range): BP systolic 125–169; BP diastolic 73–119; PULSE 51–98; RESP 18–20; TEMP 36.1–36.8; O2SAT 91–97
[2021-03-01] MEDS: Albuterol/Iprat 2.5/0.5MG 3 ML AMPUL.NEB INHALE ×2 (00:57→03:35)
[2021-03-01] MEDS: Acetaminophen 325 MG TABLET 650 MG PO ×2 (03:50→18:10)
[2021-03-01] MEDS: 0.9 % Sodium Chloride 1,000 ML 100 ML IVCONT ×2 (06:00→23:14)
[2021-03-01 07:15] LABS: Anion Gap 13 (12-20); Blood Urea Nitrogen 16 mg/dL (9-16); C Reactive Protein 8.73 mg/dL (< or = 0.50); Calcium 9.3 mg/dL (8.4-10.2); Carbon Dioxide 33 mmol/L (22-29); Chloride 101 mmol/L (96-108); Creatinine Clr Calc Pharmacy 83.6; Estimated Glomerular Filt Rate > 60; Glucose Random 203 mg/dL (60-115); Potassium 4.7 mmol/L (3.3-5.1); Sodium 142 mmol/L (135-145)
[2021-03-01 07:42] LABS: Glucose, Whole Blood 184 mg/dL (60-115)
[2021-03-01] MEDS: Loratadine 10 MG TABLET PO (08:03)
[2021-03-01] MEDS: Nicotine 14 MG PATCH.TD24 TRANSDERMA (08:03)
[2021-03-01] MEDS: Insulin Lispro 100 UNIT/ML 3 ML VIAL SUBCUT ×3 (08:05→20:14)
[2021-03-01] MEDS: Insulin Glargine,Hum.rec.anlog 100 UNIT/ML 10 ML VIAL 10 UNIT SUBCUT (08:05)
--- NOTE | 2021-03-01 09:56 | HO.PM.IMPN ---
Subjective Subjective Date of Service: 03/01/21 Interval History: Fever resolved No dyspnea No chest pain No hx of ND/angina Snores and c/o daytime fatigue Review of Systems Review of Systems: Yes all other systems are reviewed and are negative Physical Exam Vital Signs: Vital Signs: Last Vital Signs Temp 98.0 F 03/01/21 07:04 Pulse 96 03/01/21 07:04 Resp 18 03/01/21 07:04 BP 145/89 H 03/01/21 07:04 Pulse Ox 92 03/01/21 07:04 Body Mass Index 26.0 Gen: in no acute distress HEENT: sclera anicteric, moist mucus membranes Neck: supple Lungs: clear to auscultation bilaterally Heart: regular rate and rhythm, no murmurs Abd: soft, non-tender, non-distended Ext: no edema Skin: warm/well-perfused Neuro: alert and oriented x3, no focal findings Psych: appropriate affect Objective Data Active Medications Acetaminophen (Acetaminophen 325 Mg Tablet) 650 mg PO Q6H PRN PRN Reason: Pain, Mild (Pain Scale 1-3) Last Admin: 03/01/21 03:50 Dose: 650 mg Documented by: LEILA Albuterol Sulfate (Albuterol Sulfate 90 Mcg 8 Gm Inhaler) 2 puff INHALE RQ4H PRN PRN Reason: shortness of breath or wheeze Albuterol/Ipratropium (Albuterol/Iprat 2.5/0.5mg 3 Ml Ampul.Neb) 3 ml INHALE RQ4H PRN PRN Reason: Shortness of Breath/Wheezing Last Admin: 03/01/21 03:35 Dose: 3 ml Documented by: ADOLFO Benzocaine (Throat Lozenge, Medicated Lozenge) 1 lozenge MUCOUS MEM Q2H PRN PRN Reason: Sore Throat Dextrose (Dextrose 50 % 25 Gm/50 Ml Vial) 25 gm IVPUSH Q15M PRN; Protocol PRN Reason: per Hypoglycemia Standing Ord. Fluticasone Propionate (Fluticasone Propionate Nasal 16 Gm [place]) 1 spray NOSTRIL-B BID [facility] Last Admin: 03/01/21 08:06 Dose: Not Given Documented by: LUIS Non-Admin Reason: Patient Refused Glucose (Glucose Gel 15 Gm Gel..Gram.) 15 gm PO Q15M PRN; Protocol PRN Reason: per Hypoglycemia Standing Ord. Sodium Chloride (Ns) 1,000 mls @ 100 mls/hr IVCONT .Q10H [facility] Last Admin: 03/01/21 06:00 Dose: 100 mls/hr Documented by: LEILA Ceftriaxone Sodium 2 gm/ (Sodium Chloride) 50 mls @ 100 mls/hr IV Q24H [facility] Last Infusion: 02/28/21 13:36 Dose: 0 mls/hr Documented by: TIFFANIE Insulin Glargine (Insulin Glargine,Hum.Rec.Anlog 100 Unit/Ml 10 Ml Vial) 10 unit SUBCUT DAILY [facility] Last Admin: 03/01/21 08:05 Dose: 10 unit Documented by: LUIS Insulin Human Lispro (Insulin Lispro 100 Unit/Ml 3 Ml Vial) 0 unit SUBCUT QIDACHS [facility]; Protocol Last Admin: 03/01/21 08:05 Dose: 2 unit Documented by: LUIS Loratadine (Loratadine 10 Mg Tablet) 10 mg PO DAILY [facility] Last Admin: 03/01/21 08:03 Dose: 10 mg Documented by: LUIS Melatonin (Melatonin 3 Mg Tablet) 6 mg PO BEDTIME PRN PRN Reason: Insomnia Last Admin: 02/28/21 22:59 Dose: 6 mg Documented by: LEILA Nicotine (Nicotine 14 Mg Patch.Td24) 14 mg TRANSDERMA DAILY [facility] Last Admin: 03/01/21 08:03 Dose: 14 mg Documented by: LUIS Pharmacy Consult (Consult Rx Perform Med Rec) 1 each MISCELLANE ONCE PRN PRN Reason: Consult order Pharmacy Consult (Consult Rx Vancomycin Dosing) 1 each MISCELLANE DAILY PRN PRN Reason: Consult order Senna (Sennosides 8.6 Mg Tablet) 17.2 mg PO BEDTIME PRN PRN Reason: Constipation Sodium Chloride (0.9 % Sodium Chloride Flush 3 Ml Syringe) 3 ml IVFLUSH QSHIFT [facility] Last Admin: 02/28/21 20:31 Dose: 3 ml Documented by: LEILA Labs CBC & Chem 7: 02/28/21 06:50 03/01/21 05:56 Labs: Laboratory Results - last 24 hr 02/28/21 02/28/21 02/28/21 10:46 11:13 12:39 Anion Gap Estim Creat Clear Calc Estimated GFR POC Glucose 232 H 244 H Random Glucose Calcium C-Reactive Protein Vancomycin Trough 5.4 L 02/28/21 02/28/21 03/01/21 16:31 20:06 05:56 Anion Gap 13 Estim Creat Clear Calc 83.6 Estimated GFR > 60 POC Glucose 297 H 371 H* Random Glucose 203 H Calcium 9.3 D C-Reactive Protein 8.73 H Vancomycin Trough 03/01/21 07:31 Anion Gap Estim Creat Clear Calc Estimated GFR POC Glucose 184 H Random Glucose Calcium C-Reactive Protein Vancomycin Trough TTE 02/28/21 - Mildly increased left ventricular cavity size.? There is normal left ventricular wall thickness.? The left ventricular systolic? function is moderately decreased.? The visually estimated? ejection fraction is between 30-35%. ? - Mildly increased right ventricular cavity size.? There is? ? ? normal right ventricular systolic function.? - There is mild dilatation of the ascending aorta. ? ? Microbiology Microbiology Results: Microbiology 02/26/21 23:39 Blood Culture - Preliminary Blood - Venous No growth after 48 hours. 02/26/21 23:39 Blood Culture - Preliminary Blood - Venous No growth after 48 hours. Assessment and Plan (1) Bacteremia: Status: Acute Assessment and Plan: hospital d#3 60yo M with asthma, tobacco abuse, presented to ED 02/23/21 with 2d of fever, called back with GPC bacteremia, admitted with sepsis # sepsis # Streptococcus dysgalactiae [group G] bacteremia - ID consulted. likely source recent neck soft tissue infection. continue ceftriaxone d#3, convert to cefuroxime upon discharge for total 14d. f/u surveillance BCx. TTE without vegetations # HFrEF, chronic - not in acute decompensated HF. incicdental finding but will need outpt ischemic w/u + cardiology f//u. will start neurohormonal modulation with metoprolol succinate, add lisinopril tomorrow as tolerated - also needs outpt PSG- has RV hypertrophy and symptoms of TRACI # troponin elevation - not ACS, likely due to sepsis per Cardiology # new dx DM2, A1c 7.4 - start MTF, DM education/diet # asthma - prn albuterol # tobacco abuse - NRT # VTE ppx - LMWH Quality Stroke Does the patient have a stroke diagnosis?: No VTE Prior VTE?: No VTE Risk Level:: Medical - moderate - high VTE Device Contraindication: N/A - Device Ordered VTE Drug Contraindication: Treatment Not Indicated
[2021-03-01] MEDS: Metoprolol Succinate ER 25 MG TAB.ER.24H PO (10:19)
[2021-03-01 11:03] LABS: Glucose, Whole Blood 212 mg/dL (60-115)
[2021-03-01] MEDS: Albuterol Sulfate 90 MCG 8 GM INHALER 2 PUFF INHALE (13:54)
[2021-03-01] MEDS: cefTRIAXone sodium 2 GM in 0.9 % Sodium Chloride 50 ML IV (14:42)
[2021-03-01 16:33] LABS: Glucose, Whole Blood 131 mg/dL (60-115)
[2021-03-01] MEDS: metFORMIN HCl 500 MG TABLET PO (18:08)
[2021-03-01 19:54] LABS: Glucose, Whole Blood 206 mg/dL (60-115)
[2021-03-01] MEDS: Melatonin 3 MG TABLET 6 MG PO (23:14)
[2021-03-02 03:41] VITALS: BP 158/98; PULSE 98; RESP 18; TEMP 36.2; O2SAT 91
[2021-03-02 06:59] LABS: Hematocrit 43.4 % (42-52); Hemoglobin 14.4 g/dl (14.0-18.0); Mean Corpuscular HGB Conc 33.2 g/dl (31.0-36.0); Mean Corpuscular Hemoglobin 29.8 pg (27.0-33.0); Mean Corpuscular Volume 89.9 fL (80-98); Mean Platelet Volume 9.9 fL (9.4-12.4); Platelet Count 285 X10*3/uL (160-400); Red Blood Count 4.83 X10*6/uL (4.60-5.80); Red Cell Distribution Width 13.8 % (11.0-16.0); White Blood Count 11.3 X10*3/uL (4.8-10.8)
[2021-03-02 07:17] LABS: B Type Natriuretic Peptide 859 pg/mL (<100)
[2021-03-02 07:28] LABS: Anion Gap 13 (12-20); Blood Urea Nitrogen 10 mg/dL (9-16); Calcium 9.9 mg/dL (8.4-10.2); Carbon Dioxide 33 mmol/L (22-29); Chloride 98 mmol/L (96-108); Creatinine Clr Calc Pharmacy 98.4; Estimated Glomerular Filt Rate > 60; Glucose Random 177 mg/dL (60-115); Sodium 139 mmol/L (135-145)
[2021-03-02 07:29] LABS: Glucose, Whole Blood 151 mg/dL (60-115)
[2021-03-02 07:45] VITALS: PULSE 100; RESP 18; TEMP 36.6; O2SAT 92
[2021-03-02] MEDS: Insulin Lispro 100 UNIT/ML 3 ML VIAL SUBCUT ×2 (08:00→11:30)
[2021-03-02] MEDS: Nicotine 14 MG PATCH.TD24 TRANSDERMA (08:01)
[2021-03-02] MEDS: metFORMIN HCl 500 MG TABLET PO (08:01)
[2021-03-02] MEDS: Loratadine 10 MG TABLET PO (08:01)
[2021-03-02 08:04] VITALS: BP 161/85; PULSE 97
[2021-03-02] MEDS: Metoprolol Succinate ER 25 MG TAB.ER.24H PO (08:04)
[2021-03-02] MEDS: 0.9 % Sodium Chloride Flush 3 ML SYRINGE IVFLUSH (08:07)
[2021-03-02] MEDS: cefTRIAXone sodium 2 GM in 0.9 % Sodium Chloride 50 ML IV (10:34)
[2021-03-02 10:35] VITALS: BP 145/91; PULSE 94
[2021-03-02] MEDS: lisinopriL 10 MG TABLET PO (10:35)
[2021-03-02 10:56] LABS: Glucose, Whole Blood 155 mg/dL (60-115)
[2021-03-02 11:06] VITALS: BP 145/91; PULSE 93; RESP 18; TEMP 36.9; O2SAT 92
--- NOTE | 2021-03-02 12:34 | P.DS_ITS ---
DS: Providers Provider Date of Service: 03/02/21 Date of admission: 02/27/21 02:58 Primary care physician: Cresencio Boyd MD Consults: 02/27/21 02:56 Consult to Infectious Diseases Routine Consulting Provider: Della Albright Reason for consultation: fever; covid negative; bacteremia 02/27/21 05:45 Consult to Cardiology Routine Consulting Provider: Jose Chambers Reason for consultation: indeterminate trops; 19beat NSVT 03/01/21 09:57 Consult to Cardiology Routine Consulting Provider: Jose Chambers Reason for consultation: f/u consultation-> incidental HFrEF 30% DS: Diagnosis Discharge Diagnosis (1) Bacteremia: Status: Acute (2) Streptococcus infection, group G: Status: Acute (3) Chronic HFrEF (heart failure with reduced ejection fraction): Status: Acute (4) Hypertension: Status: Acute (5) RVH (right ventricular hypertrophy): Status: Acute (6) Elevated troponin: Status: Acute (7) Tobacco abuse: Status: Acute (8) New onset type 2 diabetes mellitus: Status: Acute DS: Summary Hospital Course Hospital Course: from the admission history and physical by hospitalist Gabriele Fernando, 02/27/21: 60-year-old male with a past medical history of asthma, tobacco dependence presented to the hospital with a chief complaint of fevers.? Patient mentioned that he has been having fevers and generalized body aches over the past 4 days; came to the hospital couple days ago and had routine workup done and subsequently sent home.? Today patient was called back in because the blood cultures from couple days ago came back positive for Gram-positive cocci in chains. Patient reports that he continued to have fevers; also complains of throat discomfort.? Reports he smokes cigarettes. Denies any numbness tingling or focal weakness. Denies any sputum production Denies any urinary symptoms Patient had COVID test done x2 that was negative; patient denies any sick contacts or recent travel. Denies any shortness of breath. Denies any chest pain palpitations lightheadedness or dizziness. Review of all other systems is negative except mentioned above ER course: Per ER team patient noted to have mild facial puffiness/congestion; exam grossly nonfocal; chest x-ray showed no acute findings; urinalysis negative; patient was given IV vancomycin and ceftriaxone which patient tolerated well.? Admitted to the hospital for further management. ER team also send tick-borne panel. This 60 year-old man with history of asthma abd tobacco abuse presented to ED 02/23/21 with 2 days of fever, then called back with bacteremia and admitted with sepsis on 02/27/21. He grew group G Streptococcus [dysgalactiae] out of 2/2 blood cultures. ID was consulted. Likely source was a recent soft tissue infection of the neck. Blood cultures cleared and there was no evidence of endocarditis. He was treated with 4 days of IV ceftriaxone and will complete treatment with 10 more days of PO cefuroxime after discharge. He was found to have reduced LVEF of 30-35% with global hypokinesis. He had no signs of acute decompensated heart failure. He was started on metoprolol succinate and lisin opril and will need follow-up with Cardiology. He also had RV hypertrophy and symptoms of TRACI, and an outpatient PSG was ordered. Troponin elevation was likely due to sepsis, not due to ACS. He was newly diagnosed with type 2 diabetes mellitus with A1c of 7.4, and was discharged on metformin with diet and exercise counseling. He was also counseled to quit smoking; NRT was prescribed. After discharge, he should follow up with his primary care doctor in 1 week, then the product promoter retail pet and the infectious disease specialist in 2 weeks. In 2 weeks, he should have repeat labs: blood culture x2 to ensure clearance, and BMP given new start of lisinopril. Time Spent with Patient Time attestation: Total time spent providing and/or coordinating discharge services: Discharge coordination time: Greater than 30 minutes Quality: Stroke Does the patient have a stroke diagnosis?: No Physical Exam Vital Signs: Vital Signs: Last Vital Signs Temp 98.4 F 03/02/21 11:06 Pulse 93 03/02/21 11:06 Resp 18 03/02/21 11:06 BP 145/91 H 03/02/21 11:06 Pulse Ox 92 03/02/21 11:06 Body Mass Index 26.0 Gen: in no acute distress HEENT: sclera anicteric, moist mucus membranes Neck: supple Lungs: clear to auscultation bilaterally Heart: regular rate and rhythm, no murmurs Abd: soft, non-tender, non-distended Ext: no edema Skin: warm/well-perfused Neuro: alert and oriented x3, no focal findings Psych: appropriate affect DS: Data Data Completed and Pending Completed studies during hospitalization [Text1]: Laboratory Tests 02/26/21 02/26/21 02/26/21 23:39 23:39 23:39 WBC 15.3 H RBC 4.73 Hgb 14.4 Hct 42.1 MCV 89.0 MCH 30.4 MCHC 34.2 RDW 13.4 Plt Count 201 MPV 9.9 Immature Gran % (Auto) 0.6 H Neut % (Auto) 78.7 H Lymph % (Auto) 10.8 L [place] % (Auto) 9.6 Eos % (Auto) 0.1 Baso % (Auto) 0.2 Lymph # (Auto) 1.7 [place] # (Auto) 1.5 H Eos # (Auto) 0.0 Baso # (Auto) 0.0 Abs Immat Gran (auto) 0.09 H Absolute Neuts (auto) 12.1 H Absolute Nucleated RBC 0.000 Nucleated RBC % (auto) 0.0 Smear Tech's Comments ESR Sodium 136 Potassium 4.2 Chloride 98 Carbon Dioxide 27 Anion Gap 15 BUN 6 L Creatinine 0.92 Estim Creat Clear Calc 90.9 Estimated GFR > 60 POC Glucose Random Glucose 195 H Estimat Average Glucose Hemoglobin A1c % Lactic Acid 1.4 Calcium 8.3 L D Magnesium 2.2 Total Bilirubin 0.6 Direct Bilirubin 0.2 AST 35 ALT 31 Alkaline Phosphatase 82 Troponin I High Sens C-Reactive Protein 29.98 H B-Natriuretic Peptide Total Protein 7.1 Albumin 3.6 Urine Color Urine Appearance Urine pH Ur Specific [place] Urine Protein Urine Glucose (UA) Urine Ketones Urine Blood Urine Nitrite Ur Leukocyte Esterase Urine RBC Urine WBC Ur Squamous Epith Cells Urine Bacteria Vancomycin Trough Rheumatoid Factor HIV 1&2 Ab/P24 Ag 4thGn S. pyogenes GrpA [place] 02/26/21 02/27/21 02/27/21 23:39 01:44 01:44 WBC RBC Hgb Hct MCV MCH MCHC RDW Plt Count MPV Immature Gran % (Auto) Neut % (Auto) Lymph % (Auto) [place] % (Auto) Eos % (Auto) Baso % (Auto) Lymph # (Auto) [place] # (Auto) Eos # (Auto) Baso # (Auto) Abs Immat Gran (auto) Absolute Neuts (auto) Absolute Nucleated RBC Nucleated RBC % (auto) Smear Tech's Comments ESR 69 H Sodium Potassium Chloride Carbon Dioxide Anion Gap BUN Creatinine Estim Creat Clear Calc Estimated GFR POC Glucose Random Glucose Estimat Average Glucose Hemoglobin A1c % Lactic Acid Calcium Magnesium Total Bilirubin Direct Bilirubin AST ALT Alkaline Phosphatase Troponin I High Sens C-Reactive Protein B-Natriuretic Peptide Total Protein Albumin Urine Color STRAW Urine Appearance CLEAR Urine pH 5.5 Ur Specific [place] <= 1.005 Urine Protein TRACE Urine Glucose (UA) NEG Urine Ketones NEG Urine Blood 1+ H Urine Nitrite NEG Ur Leukocyte Esterase NEG Urine RBC 0-2 Urine WBC 0-2 Ur Squamous Epith Cells TRACE Urine Bacteria NONE Vancomycin Trough Rheumatoid Factor HIV 1&2 Ab/P24 Ag 4thGn S. pyogenes GrpA [place] Negative 02/27/21 02/27/21 02/27/21 04:58 05:13 05:13 WBC 14.0 H RBC 4.77 Hgb 14.4 Hct 42.6 MCV 89.3 MCH 30.2 MCHC 33.8 RDW 13.6 Plt Count 202 MPV 9.7 Immature Gran % (Auto) 0.7 H Neut % (Auto) 91.5 H Lymph % (Auto) 5.6 L [place] % (Auto) 2.1 Eos % (Auto) 0.0 Baso % (Auto) 0.1 Lymph # (Auto) 0.8 L [place] # (Auto) 0.3 Eos # (Auto) 0.0 Baso # (Auto) 0.0 Abs Immat Gran (auto) 0.10 H Absolute Neuts (auto) 12.8 H Absolute Nucleated RBC 0.000 Nucleated RBC % (auto) 0.0 Smear Tech's Comments VERIFIED ESR Sodium Potassium Chloride Carbon Dioxide Anion Gap BUN Creatinine Estim Creat Clear Calc Estimated GFR POC Glucose 412 H* Random Glucose Estimat Average Glucose 166 Hemoglobin A1c % 7.4 Lactic Acid Calcium Magnesium Total Bilirubin Direct Bilirubin AST ALT Alkaline Phosphatase Troponin I High Sens C-Reactive Protein B-Natriuretic Peptide Total Protein Albumin Urine Color Urine Appearance Urine pH Ur Specific [place] Urine Protein Urine Glucose (UA) Urine Ketones Urine Blood Urine Nitrite Ur Leukocyte Esterase Urine RBC Urine WBC Ur Squamous Epith Cells Urine Bacteria Vancomycin Trough Rheumatoid Factor HIV 1&2 Ab/P24 Ag 4thGn S. pyogenes GrpA [place] 02/27/21 02/27/21 02/27/21 05:13 05:13 07:25 WBC RBC Hgb Hct MCV MCH MCHC RDW Plt Count MPV Immature Gran % (Auto) Neut % (Auto) Lymph % (Auto) [place] % (Auto) Eos % (Auto) Baso % (Auto) Lymph # (Auto) [place] # (Auto) Eos # (Auto) Baso # (Auto) Abs Immat Gran (auto) Absolute Neuts (auto) Absolute Nucleated RBC Nucleated RBC % (auto) Smear Tech's Comments ESR Sodium 135 Potassium 4.4 Chloride 101 Carbon Dioxide 26 Anion Gap 12 BUN 8 L Creatinine 1.06 Estim Creat Clear Calc 78.9 Estimated GFR > 60 POC Glucose 356 H* Random Glucose 424 H* Estimat Average Glucose Hemoglobin A1c % Lactic Acid Calcium 8.3 L Magnesium Total Bilirubin Direct Bilirubin AST ALT Alkaline Phosphatase Troponin I High Sens 35.7 H* C-Reactive Protein B-Natriuretic Peptide Total Protein Albumin Urine Color Urine Appearance Urine pH Ur Specific [place] Urine Protein Urine Glucose (UA) Urine Ketones Urine Blood Urine Nitrite Ur Leukocyte Esterase Urine RBC Urine WBC Ur Squamous Epith Cells Urine Bacteria Vancomycin Trough Rheumatoid Factor HIV 1&2 Ab/P24 Ag 4thGn S. pyogenes GrpA [place] 02/27/21 02/27/21 02/27/21 10:58 11:41 16:20 WBC RBC Hgb Hct MCV MCH MCHC RDW Plt Count MPV Immature Gran % (Auto) Neut % (Auto) Lymph % (Auto) [place] % (Auto) Eos % (Auto) Baso % (Auto) Lymph # (Auto) [place] # (Auto) Eos # (Auto) Baso # (Auto) Abs Immat Gran (auto) Absolute Neuts (auto) Absolute Nucleated RBC Nucleated RBC % (auto) Smear Tech's Comments ESR Sodium Potassium Chloride Carbon Dioxide Anion Gap BUN Creatinine Estim Creat Clear Calc Estimated GFR POC Glucose 309 H 256 H Random Glucose Estimat Average Glucose Hemoglobin A1c % Lactic Acid Calcium Magnesium Total Bilirubin Direct Bilirubin AST ALT Alkaline Phosphatase Troponin I High Sens 26.6 C-Reactive Protein B-Natriuretic Peptide Total Protein Albumin Urine Color Urine Appearance Urine pH Ur Specific [place] Urine Protein Urine Glucose (UA) Urine Ketones Urine Blood Urine Nitrite Ur Leukocyte Esterase Urine RBC Urine WBC Ur Squamous Epith Cells Urine Bacteria Vancomycin Trough Rheumatoid Factor HIV 1&2 Ab/P24 Ag 4thGn S. pyogenes GrpA [place] 02/27/21 02/27/21 02/27/21 19:07 22:34 23:51 WBC RBC Hgb Hct MCV MCH MCHC RDW Plt Count MPV Immature Gran % (Auto) Neut % (Auto) Lymph % (Auto) [place] % (Auto) Eos % (Auto) Baso % (Auto) Lymph # (Auto) [place] # (Auto) Eos # (Auto) Baso # (Auto) Abs Immat Gran (auto) Absolute Neuts (auto) Absolute Nucleated RBC Nucleated RBC % (auto) Smear Tech's Comments ESR Sodium Potassium Chloride Carbon Dioxide Anion Gap BUN Creatinine Estim Creat Clear Calc Estimated GFR POC Glucose 264 H 310 H 304 H Random Glucose Estimat Average Glucose Hemoglobin A1c % Lactic Acid Calcium Magnesium Total Bilirubin Direct Bilirubin AST ALT Alkaline Phosphatase Troponin I High Sens C-Reactive Protein B-Natriuretic Peptide Total Protein Albumin Urine Color Urine Appearance Urine pH Ur Specific [place] Urine Protein Urine Glucose (UA) Urine Ketones Urine Blood Urine Nitrite Ur Leukocyte Esterase Urine RBC Urine WBC Ur Squamous Epith Cells Urine Bacteria Vancomycin Trough Rheumatoid Factor HIV 1&2 Ab/P24 Ag 4thGn S. pyogenes GrpA [place] 02/28/21 02/28/21 02/28/21 05:38 06:50 06:50 WBC 12.4 H RBC 4.30 L Hgb 12.8 L Hct 39.9 L MCV 92.8 MCH 29.8 MCHC 32.1 RDW 14.2 Plt Count 218 MPV 9.6 Immature Gran % (Auto) Neut % (Auto) Lymph % (Auto) [place] % (Auto) Eos % (Auto) Baso % (Auto) Lymph # (Auto) [place] # (Auto) Eos # (Auto) Baso # (Auto) Abs Immat Gran (auto) Absolute Neuts (auto) Absolute Nucleated RBC 0.000 Nucleated RBC % (auto) 0.0 Smear Tech's Comments ESR Sodium 142 Potassium 5.2 H Chloride 106 Carbon Dioxide 30 H Anion Gap 11 L BUN 16 D Creatinine 1.14 Estim Creat Clear Calc 73.3 Estimated GFR > 60 POC Glucose 253 H Random Glucose 298 H Estimat Average Glucose Hemoglobin A1c % Lactic Acid Calcium 8.7 Magnesium Total Bilirubin Direct Bilirubin AST ALT Alkaline Phosphatase Troponin I High Sens C-Reactive Protein B-Natriuretic Peptide Total Protein Albumin Urine Color Urine Appearance Urine pH Ur Specific [place] Urine Protein Urine Glucose (UA) Urine Ketones Urine Blood Urine Nitrite Ur Leukocyte Esterase Urine RBC Urine WBC Ur Squamous Epith Cells Urine Bacteria Vancomycin Trough Rheumatoid Factor < 15.0 HIV 1&2 Ab/P24 Ag 4thGn S. pyogenes GrpA [place] 02/28/21 02/28/21 02/28/21 06:50 07:14 10:46 WBC RBC Hgb Hct MCV MCH MCHC RDW Plt Count MPV Immature Gran % (Auto) Neut % (Auto) Lymph % (Auto) [place] % (Auto) Eos % (Auto) Baso % (Auto) Lymph # (Auto) [place] # (Auto) Eos # (Auto) Baso # (Auto) Abs Immat Gran (auto) Absolute Neuts (auto) Absolute Nucleated RBC Nucleated RBC % (auto) Smear Tech's Comments ESR Sodium Potassium Chloride Carbon Dioxide Anion Gap BUN Creatinine Estim Creat Clear Calc Estimated GFR POC Glucose 304 H Random Glucose Estimat Average Glucose Hemoglobin A1c % Lactic Acid Calcium Magnesium Total Bilirubin Direct Bilirubin AST ALT Alkaline Phosphatase Troponin I High Sens C-Reactive Protein B-Natriuretic Peptide Total Protein Albumin Urine Color Urine Appearance Urine pH Ur Specific [place] Urine Protein Urine Glucose (UA) Urine Ketones Urine Blood Urine Nitrite Ur Leukocyte Esterase Urine RBC Urine WBC Ur Squamous Epith Cells Urine Bacteria Vancomycin Trough 5.4 L Rheumatoid Factor HIV 1&2 Ab/P24 Ag 4thGn Nonreactive S. pyogenes GrpA [place] 02/28/21 02/28/21 02/28/21 11:13 12:39 16:31 WBC RBC Hgb Hct MCV MCH MCHC RDW Plt Count MPV Immature Gran % (Auto) Neut % (Auto) Lymph % (Auto) [place] % (Auto) Eos % (Auto) Baso % (Auto) Lymph # (Auto) [place] # (Auto) Eos # (Auto) Baso # (Auto) Abs Immat Gran (auto) Absolute Neuts (auto) Absolute Nucleated RBC Nucleated RBC % (auto) Smear Tech's Comments ESR Sodium Potassium Chloride Carbon Dioxide Anion Gap BUN Creatinine Estim Creat Clear Calc Estimated GFR POC Glucose 232 H 244 H 297 H Random Glucose Estimat Average Glucose Hemoglobin A1c % Lactic Acid Calcium Magnesium Total Bilirubin Direct Bilirubin AST ALT Alkaline Phosphatase Troponin I High Sens C-Reactive Protein B-Natriuretic Peptide Total Protein Albumin Urine Color Urine Appearance Urine pH Ur Specific [place] Urine Protein Urine Glucose (UA) Urine Ketones Urine Blood Urine Nitrite Ur Leukocyte Esterase Urine RBC Urine WBC Ur Squamous Epith Cells Urine Bacteria Vancomycin Trough Rheumatoid Factor HIV 1&2 Ab/P24 Ag 4thGn S. pyogenes GrpA [place] 02/28/21 03/01/21 03/01/21 20:06 05:56 07:31 WBC RBC Hgb Hct MCV MCH MCHC RDW Plt Count MPV Immature Gran % (Auto) Neut % (Auto) Lymph % (Auto) [place] % (Auto) Eos % (Auto) Baso % (Auto) Lymph # (Auto) [place] # (Auto) Eos # (Auto) Baso # (Auto) Abs Immat Gran (auto) Absolute Neuts (auto) Absolute Nucleated RBC Nucleated RBC % (auto) Smear Tech's Comments ESR Sodium 142 Potassium 4.7 Chloride 101 Carbon Dioxide 33 H Anion Gap 13 BUN 16 Creatinine 1.00 Estim Creat Clear Calc 83.6 Estimated GFR > 60 POC Glucose 371 H* 184 H Random Glucose 203 H Estimat Average Glucose Hemoglobin A1c % Lactic Acid Calcium 9.3 D Magnesium Total Bilirubin Direct Bilirubin AST ALT Alkaline Phosphatase Troponin I High Sens C-Reactive Protein 8.73 H B-Natriuretic Peptide Total Protein Albumin Urine Color Urine Appearance Urine pH Ur Specific [place] Urine Protein Urine Glucose (UA) Urine Ketones Urine Blood Urine Nitrite Ur Leukocyte Esterase Urine RBC Urine WBC Ur Squamous Epith Cells Urine Bacteria Vancomycin Trough Rheumatoid Factor HIV 1&2 Ab/P24 Ag 4thGn S. pyogenes GrpA [place] 03/01/21 03/01/21 03/01/21 10:56 16:19 19:44 WBC RBC Hgb Hct MCV MCH MCHC RDW Plt Count MPV Immature Gran % (Auto) Neut % (Auto) Lymph % (Auto) [place] % (Auto) Eos % (Auto) Baso % (Auto) Lymph # (Auto) [place] # (Auto) Eos # (Auto) Baso # (Auto) Abs Immat Gran (auto) Absolute Neuts (auto) Absolute Nucleated RBC Nucleated RBC % (auto) Smear Tech's Comments ESR Sodium Potassium Chloride Carbon Dioxide Anion Gap BUN Creatinine Estim Creat Clear Calc Estimated GFR POC Glucose 212 H 131 H 206 H Random Glucose Estimat Average Glucose Hemoglobin A1c % Lactic Acid Calcium Magnesium Total Bilirubin Direct Bilirubin AST ALT Alkaline Phosphatase Troponin I High Sens C-Reactive Protein B-Natriuretic Peptide Total Protein Albumin Urine Color Urine Appearance Urine pH Ur Specific [place] Urine Protein Urine Glucose (UA) Urine Ketones Urine Blood Urine Nitrite Ur Leukocyte Esterase Urine RBC Urine WBC Ur Squamous Epith Cells Urine Bacteria Vancomycin Trough Rheumatoid Factor HIV 1&2 Ab/P24 Ag 4thGn S. pyogenes GrpA [place] 03/02/21 03/02/21 03/02/21 06:28 06:28 06:28 WBC 11.3 H RBC 4.83 Hgb 14.4 Hct 43.4 MCV 89.9 MCH 29.8 MCHC 33.2 RDW 13.8 Plt Count 285 D MPV 9.9 Immature Gran % (Auto) Neut % (Auto) Lymph % (Auto) [place] % (Auto) Eos % (Auto) Baso % (Auto) Lymph # (Auto) [place] # (Auto) Eos # (Auto) Baso # (Auto) Abs Immat Gran (auto) Absolute Neuts (auto) Absolute Nucleated RBC 0.000 Nucleated RBC % (auto) 0.0 Smear Tech's Comments ESR Sodium 139 Potassium 5.0 Chloride 98 Carbon Dioxide 33 H Anion Gap 13 BUN 10 Creatinine 0.85 Estim Creat Clear Calc 98.4 Estimated GFR > 60 POC Glucose Random Glucose 177 H Estimat Average Glucose Hemoglobin A1c % Lactic Acid Calcium 9.9 D Magnesium Total Bilirubin Direct Bilirubin AST ALT Alkaline Phosphatase Troponin I High Sens C-Reactive Protein B-Natriuretic Peptide 859 H Total Protein Albumin Urine Color Urine Appearance Urine pH Ur Specific [place] Urine Protein Urine Glucose (UA) Urine Ketones Urine Blood Urine Nitrite Ur Leukocyte Esterase Urine RBC Urine WBC Ur Squamous Epith Cells Urine Bacteria Vancomycin Trough Rheumatoid Factor HIV 1&2 Ab/P24 Ag 4thGn S. pyogenes GrpA [place] 03/02/21 03/02/21 07:07 10:53 WBC RBC Hgb Hct MCV MCH MCHC RDW Plt Count MPV Immature Gran % (Auto) Neut % (Auto) Lymph % (Auto) [place] % (Auto) Eos % (Auto) Baso % (Auto) Lymph # (Auto) [place] # (Auto) Eos # (Auto) Baso # (Auto) Abs Immat Gran (auto) Absolute Neuts (auto) Absolute Nucleated RBC Nucleated RBC % (auto) Smear Tech's Comments ESR Sodium Potassium Chloride Carbon Dioxide Anion Gap BUN Creatinine Estim Creat Clear Calc Estimated GFR POC Glucose 151 H 155 H Random Glucose Estimat Average Glucose Hemoglobin A1c % Lactic Acid Calcium Magnesium Total Bilirubin Direct Bilirubin AST ALT Alkaline Phosphatase Troponin I High Sens C-Reactive Protein B-Natriuretic Peptide Total Protein Albumin Urine Color Urine Appearance Urine pH Ur Specific [place] Urine Protein Urine Glucose (UA) Urine Ketones Urine Blood Urine Nitrite Ur Leukocyte Esterase Urine RBC Urine WBC Ur Squamous Epith Cells Urine Bacteria Vancomycin Trough Rheumatoid Factor HIV 1&2 Ab/P24 Ag 4thGn S. pyogenes GrpA [place] ITS Impressions Abdomen/Pelvis CT 02/27/21 00:00 IMPRESSION: 1. Mural prominence of the urinary bladder, which could be due to underdistention versus cystitis. 2. Coronary artery calcifications. Correlation with cardiac risk factors is recommended. 3. Bilateral fat-containing inguinal hernias. Chest CT 02/27/21 00:00 IMPRESSION: 1. Mural prominence of the urinary bladder, which could be due to underdistention versus cystitis. 2. Coronary artery calcifications. Correlation with cardiac risk factors is recommended. 3. Bilateral fat-containing inguinal hernias. Face CT 02/27/21 01:22 IMPRESSION: Mild symmetric periorbital edema. No additional acute findings identified. TTE 02/28/21 - Mildly increased left ventricular cavity size.? There is normal left ventricular wall thickness.? The left ventricular systolic? function is moderately decreased.? The visually estimated? ejection fraction is between 30-35%. ? - Mildly increased right ventricular cavity size.? There is? ? ? normal right ventricular systolic function.? - There is mild dilatation of the ascending aorta. ? Discharge Plan Discharge Patient Disposition: Home, Self-Care Discharge Diagnosis: Streptococcus dysgalactiae bacteremia Cardiomyopathy/heart failure and hypertension Possible sleep apnea New-onset type 2 diabetes Tobacco abuse Referrals: Della Albright MD [Physician] - 2 Weeks Jose Chambers MD [Physician] - 2 Weeks Cresencio Boyd MD [Primary Care Provider] - 1 Week Discharge Medications: New metformin 500 mg Tablet 500 mg PO BIDWM Qty: 60 RF: 0 nicotine 14 mg/24 hr Patch 24 Hour 14 mg transdermal DAILY Qty: 30 RF: 0 lisinopril 10 mg Tablet 10 mg PO DAILY Qty: 30 RF: 0 metoprolol succinate 25 mg Tablet Extended Release 24 Hr 25 mg PO DAILY Qty: 30 RF: 0 cefuroxime axetil 500 mg tablet 500 mg PO BID Qty: 20 RF: 0 Continued cetirizine 10 mg tablet 1 tab PO DAILY RF: 0 fluticasone propionate 50 mcg/actuation spray,suspension 1 spray intranasal BID RF: 0 Discontinued doxycycline hyclate 100 mg capsule 1 cap PO BID RF: 0 Discharge Orders: Discharge Order (Routine); Ordered 03/02/21 Ordered By: Mignon Barroso Diet: diabetic diet Activity on Discharge: As tolerated Stand Alone Forms: Patient Portal Discharge page, Work/School Release Other Ambulatory Orders: Basic Metabolic Panel (Routine) Timeframe: 2 Weeks Facility: [facility] - Location: Laboratory Ordered By: Mignon Barroso Blood Culture X2 (Routine) Timeframe: 2 Weeks Facility: [facility] - Location: Laboratory Ordered By: Mignon Barroso RT home sleep study (Routine) Location: None Selected Ordered By: Mignon Barroso Care Plan Goals: Cure of infection Prevention of cardiac complications Diagnosis of possible sleep apnea Prevention of diabetic complications Smoking cessation Health Concerns: Streptococcus dysgalactiae bacteremia Cardiomyopathy/heart failure and hypertension Possible sleep apnea New-onset type 2 diabetes Tobacco abuse Plan of Treatment: Cefuroxime 500 mg 2x a day for 10 days; follow up with Infectious Diseases in 2 weeks and repeat lab [blood culture] Lisinopril 10 mg daily PLUS metoprolol succinate 25 mg daily; follow up with Cardiology in 2 weeks and repeat lab [basic metablic panel] Sleep study Metformin 500 mg twice daily; Mediterranean diet; aerobic exercise 30 /day Nicotine patch See your primary care doctor in 1 week Assessment: as above Patient Instructions: Heart Failure (ED), Type 2 Diabetes in Adults: New Diagnosis (DC), Bacteremia (DC)
--- NOTE | 2021-03-02 12:37 | MHC.CM.PN ---
Patient has been medically cleared for dc to home today, no services.
--- NOTE | 2021-03-02 12:48 | P.PNCA_ITS ---
Subjective Subjective Date of Service: 03/02/21 Interval history: Feeling good. Echocardiography has shown moderate reduced ejection fraction. Physical Exam Vital Signs: Last Vital Signs Temp 98.4 F 03/02/21 11:06 Pulse 93 03/02/21 11:06 Resp 18 03/02/21 11:06 BP 145/91 H 03/02/21 11:06 Pulse Ox 92 03/02/21 11:06 Body Mass Index 26.0 GENERAL APPEARANCE: in no acute distress, pleasant. NECK: no carotid bruit, no jugular venous distention. SKIN: no suspicious lesions, warm and dry. HEART: no murmurs, regular rate and rhythm. LUNGS: clear to auscultation bilaterally. ABDOMEN: soft, nontender. EXTREMITIES: no edema. PERIPHERAL PULSES: equal. NEUROLOGIC: No gross deficits, AAO X 3 Results Labs and Meds Result diagrams: 03/02/21 06:28 03/02/21 06:28 Lab results: Laboratory Results - last 24 hr 03/01/21 03/01/21 03/02/21 16:19 19:44 06:28 WBC 11.3 H RBC 4.83 Hgb 14.4 Hct 43.4 MCV 89.9 MCH 29.8 MCHC 33.2 RDW 13.8 Plt Count 285 D MPV 9.9 Absolute Nucleated RBC 0.000 Nucleated RBC % (auto) 0.0 Sodium Potassium Chloride Carbon Dioxide Anion Gap BUN Creatinine Estim Creat Clear Calc Estimated GFR POC Glucose 131 H 206 H Random Glucose Calcium B-Natriuretic Peptide 03/02/21 03/02/21 03/02/21 06:28 06:28 07:07 WBC RBC Hgb Hct MCV MCH MCHC RDW Plt Count MPV Absolute Nucleated RBC Nucleated RBC % (auto) Sodium 139 Potassium 5.0 Chloride 98 Carbon Dioxide 33 H Anion Gap 13 BUN 10 Creatinine 0.85 Estim Creat Clear Calc 98.4 Estimated GFR > 60 POC Glucose 151 H Random Glucose 177 H Calcium 9.9 D B-Natriuretic Peptide 859 H 03/02/21 10:53 WBC RBC Hgb Hct MCV MCH MCHC RDW Plt Count MPV Absolute Nucleated RBC Nucleated RBC % (auto) Sodium Potassium Chloride Carbon Dioxide Anion Gap BUN Creatinine Estim Creat Clear Calc Estimated GFR POC Glucose 155 H Random Glucose Calcium B-Natriuretic Peptide Progress Note: A&P Assessment and plan (1) HFrEF (heart failure with reduced ejection fraction): Status: Acute (2) Hypertension: Status: Acute Assessment and Plan: 60-year-old gentleman who presented with a streptococcal bacteremia and was found to have mildly abnormal troponin levels. These were thought to be secondary to sepsis. He had echocardiogram performed which incidentally is showing moderately reduced ejection fraction. LVEF is globally reduced. He has no symptoms right now. He drinks 2 cans of beer a day and occasionally drinks whiskey also. He is a smoker. He also has high blood pressure. Agree with metoprolol XL and lisinopril. I think titrate lisinopril to control blood pressure better. I have advised him to stop drinking. Will repeat an echocardiogram in few months. Currently he is asymptomatic and does not need diuretics. Thank you for allowing me to participate in the care of your patient. Please feel free to contact me if you have any questions. Fall Risk Details Current Medications: Current Medications Acetaminophen (Acetaminophen 325 Mg Tablet) 650 mg PO Q6H PRN PRN Reason: Pain, Mild (Pain Scale 1-3) Last Admin: 03/01/21 18:10 Dose: 650 mg Documented by: Albuterol Sulfate (Albuterol Sulfate 90 Mcg 8 Gm Inhaler) 2 puff INHALE RQ4H PRN PRN Reason: shortness of breath or wheeze Last Admin: 03/01/21 13:54 Dose: 2 puff Documented by: Albuterol/Ipratropium (Albuterol/Iprat 2.5/0.5mg 3 Ml Ampul.Neb) 3 ml INHALE RQ4H PRN PRN Reason: Shortness of Breath/Wheezing Last Admin: 03/01/21 03:35 Dose: 3 ml Documented by: Benzocaine (Throat Lozenge, Medicated Lozenge) 1 lozenge MUCOUS MEM Q2H PRN PRN Reason: Sore Throat Dextrose (Dextrose 50 % 25 Gm/50 Ml Vial) 25 gm IVPUSH Q15M PRN; Protocol PRN Reason: per Hypoglycemia Standing Ord. Fluticasone Propionate (Fluticasone Propionate Nasal 16 Gm [place]) 1 spray NOSTRIL-B BID ELANA Last Admin: 03/02/21 08:07 Dose: Not Given Documented by: Glucose (Glucose Gel 15 Gm Gel..Gram.) 15 gm PO Q15M PRN; Protocol PRN Reason: per Hypoglycemia Standing Ord. Ceftriaxone Sodium 2 gm/ (Sodium Chloride) 50 mls @ 100 mls/hr IV Q24H [facility] Last Infusion: 03/02/21 11:09 Dose: Infused Documented by: Insulin Human Lispro (Insulin Lispro 100 Unit/Ml 3 Ml Vial) 0 unit SUBCUT QIDACHS [facility]; Protocol Last Admin: 03/02/21 11:30 Dose: 2 unit Documented by: Lisinopril (Lisinopril 10 Mg Tablet) 10 mg PO DAILY [facility]; Protocol Last Admin: 03/02/21 10:35 Dose: 10 mg Documented by: Loratadine (Loratadine 10 Mg Tablet) 10 mg PO DAILY [facility] Last Admin: 03/02/21 08:01 Dose: 10 mg Documented by: Melatonin (Melatonin 3 Mg Tablet) 6 mg PO BEDTIME PRN PRN Reason: Insomnia Last Admin: 03/01/21 23:14 Dose: 6 mg Documented by: Metformin HCl (Metformin Hcl 500 Mg Tablet) 500 mg PO BIDWM [facility] Last Admin: 03/02/21 08:01 Dose: 500 mg Documented by: Metoprolol Succinate (Metoprolol Succinate Er 25 Mg Tab.Er.24h) 25 mg PO DAILY [facility]; Protocol Last Admin: 03/02/21 08:04 Dose: 25 mg Documented by: Nicotine (Nicotine 14 Mg Patch.Td24) 14 mg TRANSDERMA DAILY [facility] Last Admin: 03/02/21 08:01 Dose: 14 mg Documented by: Pharmacy Consult (Consult Rx Perform Med Rec) 1 each MISCELLANE ONCE PRN PRN Reason: Consult order Pharmacy Consult (Consult Rx Vancomycin Dosing) 1 each MISCELLANE DAILY PRN PRN Reason: Consult order Senna (Sennosides 8.6 Mg Tablet) 17.2 mg PO BEDTIME PRN PRN Reason: Constipation Sodium Chloride (0.9 % Sodium Chloride Flush 3 Ml Syringe) 3 ml IVFLUSH QSHIFT [facility] Last Admin: 03/02/21 08:07 Dose: 3 ml Documented by: Time Spent With Patient Time: Total time spent is greater than 50% in coordination of care (as documented) at patient's floor/unit and/or counseling patient: Time with patient: 15 - 24 minutes Progress Note: Quality Stroke Does the patient have a stroke diagnosis?: No Procedures Date of Service Date of Service: 03/02/21
== END 2021-03-02 13:08 | disposition home or self-care (01) | DRG 720 ==
LOC: HO.ED 02-27 01:31 → HO.EDOVER 02-27 03:07 → HO.IMC 02-27 20:25
PROVIDERS: Physician Assistant; Admitting Provider Hospitalist; Emergency Provider Internal Medicine; PCP Internal Medicine; Visit Provider Family Medicine
DX: A40.8 Other streptococcal sepsis (principal); I11.0 Hypertensive heart disease with heart failure; E11.65 Type 2 diabetes mellitus with hyperglycemia; I50.22 Chronic systolic (congestive) heart failure; J45.20 Mild intermittent asthma, uncomplicated; I51.7 Cardiomegaly; F17.210 Nicotine dependence, cigarettes, uncomplicated; G47.30 Sleep apnea, unspecified; Z71.6 Tobacco abuse counseling; J45.909 Unspecified asthma, uncomplicated; Z88.0 Allergy status to penicillin; Z79.51 Long term (current) use of inhaled steroids; Z79.84 Long term (current) use of oral hypoglycemic drugs; Z79.899 Other long term (current) drug therapy
CPT/HCPCS: 36415; 70486; 71260; 74177; 80048; 80076; 80202; 81001; 82947; 83036; 83605; 83735; 83880; 84484; 85025; 85027; 85652; 86140; 86431; 87040; 87389; 87651; 93005; 93306; 94640; 96361; 96365; 96375; 99285; J0696; J1200; J2930; J3370; Q9967

== ENCOUNTER → 2021-07-22 14:09 | Outpatient (BNVA) | payer OTHER, SELFPAY | PROVIDERS: PCP Internal Medicine; Visit Provider Nurse Practitioner Family | DX: G47.00 Insomnia, unspecified (principal); G47.9 Sleep disorder, unspecified | CPT/HCPCS: 99202 ==

== ENCOUNTER 2021-07-23 09:53 | Outpatient (REF) | payer OTHER, SELFPAY ==
--- NOTE | ~2021-07-23 | XR_ITS ---
EXAMINATION: XR CHEST CLINICAL INFORMATION: Shortness of breath COMPARISON: Previous chest x-ray February 2021 TECHNIQUE: 2 views of the chest were obtained. FINDINGS: The cardiac silhouette is enlarged but stable. Hilar and mediastinal contours are unremarkable. The lungs are clear. There is no pleural effusion or pneumothorax. There are degenerative changes of the spine. XR/XR chest 2V IMPRESSION: Stable enlargement of the cardiac silhouette. No evidence for acute disease in the chest.
== END 2021-07-23 09:54 | disposition home or self-care (01) ==
LOC: HO.XRAY 09:53
PROVIDERS: PCP Internal Medicine; Visit Provider Family Medicine
DX: R06.02 Shortness of breath (principal)
CPT/HCPCS: 71046

== ENCOUNTER 2021-07-23 11:45 | Emergency (ER) | payer OTHER, SELFPAY ==
--- NOTE | ~2021-07-23 | CT_ITS ---
EXAMINATION: CT ANGIOGRAM OF THE CHEST WITH AND WITHOUT CONTRAST (CT PULMONARY ANGIOGRAM FOR PE) CLINICAL INFORMATION: Reason for Exam shortness of breath, elevated d-dimer COMPARISON: Previous chest CT February 2021 and chest x-ray from earlier the same day TECHNIQUE: Prior to contrast administration, noncontrast localization images were obtained. Subsequently, multidetector volumetric imaging was performed from the thoracic inlet to below the diaphragms following the administration of 71 mL Omnipaque 350 intravenous contrast. No contrast reaction reported Sagittal, coronal, and MIP oblique sagittal reformatted images were obtained on the CT workstation, uploaded to PACS, and reviewed. This CT examination was performed using dose optimization techniques as appropriate, variously including the following: *Automated exposure control *Adjustment of mA and/or kV according to patient size (this includes techniques or standardized protocols for targeted exams where dose is matched to indication/reason for exam; i.e. extremities or head) *Use of iterative reconstruction technique Total exam dose-length product 311 mGy-cm FINDINGS: QUALITY OF STUDY/CONTRAST BOLUS: Satisfactory. PULMONARY ARTERIES: No central or segmental pulmonary emboli. Pulmonary arteries are enlarged. The main pulmonary artery measures 4 cm. THORACIC AORTA: No aneurysm or dissection. LUNG: No focal consolidation, nodules or masses. PLEURA: No pleural effusion or pneumothorax. MEDIASTINUM: The heart is enlarged. There is no pericardial effusion. 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 There are no enlarged hilar or mediastinal lymph nodes. The thyroid gland is prominent. CHEST WALL/AXILLA: No axillary or internal mammary lymphadenopathy. OSSEOUS STRUCTURES: No acute or suspicious osseous abnormality. UPPER ABDOMEN: There is a left renal cyst measures 6 cm.. There is reflux of contrast into the hepatic veins to suggest elevated right heart pressures. CT/CT angio chest PE protocol IMPRESSION: No evidence of pulmonary embolism. Enlarged pulmonary arteries. Enlarged heart. Reflux of contrast into the hepatic veins suggestive of elevated right heart pressure. Left renal cyst. VTE: negative
--- NOTE | ~2021-07-23 | US_ITS ---
EXAMINATION: US VENOUS ULTRASOUND WITH DOPPLER LOWER EXTREMITY, BILATERAL CLINICAL INFORMATION: Shortness of breath COMPARISON: None TECHNIQUE: Ultrasound of the deep veins is performed from the hip to the calf with compression sonography and color and pulse Doppler assessment. Spectral analysis with color-flow imaging is performed. FINDINGS: RIGHT: There is normal venous compression and respiratory variation and augmented flow. The visualized common femoral vein, superficial femoral vein, profunda femoral vein, popliteal vein, and the trifurcation region shows no evidence of deep venous thrombosis. There is no significant popliteal fossa cyst. No popliteal artery aneurysm. LEFT: There is normal venous compression and respiratory variation and augmented flow. The visualized common femoral vein, superficial femoral vein, profunda femoral vein, popliteal vein, and the trifurcation region shows no evidence of deep venous thrombosis. There is a small amount of fluid seen within the popliteal fossa. No popliteal artery aneurysm. US/US venous duplex LE BI IMPRESSION: No DVT demonstrated in the bilateral lower extremity. Small left popliteal fossa cyst.
[2021-07-23 12:00] VITALS: BP 134/84; PULSE 101; RESP 19; TEMP 36.6; O2SAT 93; BMI 28.3
--- NOTE | 2021-07-23 12:06 | ECG_ITS ---
Test Reason : SOB Blood Pressure : / mmHG Vent. Rate : 099 BPM Atrial Rate : 099 BPM P-R Int : 164 ms QRS Dur : 110 ms QT Int : 374 ms P-R-T Axes : 045 -70 -04 degrees QTc Int : 479 ms Normal sinus rhythm Possible Left atrial enlargement Incomplete right bundle branch block Left anterior fascicular block Minimal voltage criteria for LVH, may be normal variant ( Donny product ) Nonspecific T wave abnormality Prolonged QT Abnormal ECG When compared with ECG of 27-FEB-2021 05:46, Premature ventricular complexes are no longer Present T wave inversion no longer evident in Anterior leads Referred By: Generic ED Physician Electronically Signed By:Jose Chambers
[2021-07-23 12:31] LABS: MANUAL DIFF FLAG NO
[2021-07-23 12:38] LABS: Basophils Percent Auto 0.1 % (0-2); Hematocrit 43.6 % (42.0-52.0); Hemoglobin 14.3 g/dl (14.0-18.0); Imm Gran Abs Auto 0.03 X10*3/uL (0.00-0.03); Imm Gran Pct Auto 0.3 % (0.0-0.4); Lymphocytes Absolute Auto 0.7 X10*3/uL (1.2-4.9); Lymphocytes Percent Auto 7.4 % (20-40); Mean Corpuscular HGB Conc 32.8 g/dl (31.0-36.0); Mean Corpuscular Hemoglobin 30.3 pg (27.0-33.0); Mean Corpuscular Volume 92.4 fL (80.0-98.0); Monocytes Absolute Auto 0.3 X10*3/uL (0.1-1.2); Monocytes Percent Auto 3.8 % (2-11); Neutrophils Percent Auto 88.4 % (45-73); Platelet Count 211 X10*3/uL (160-400); Red Blood Count 4.72 X10*6/uL (4.60-5.80); Red Cell Distribution Width 14.5 % (11.0-16.0); White Blood Count 9.1 X10*3/uL (4.8-10.8)
[2021-07-23 12:56] LABS: Anion Gap 12 (12-20); Carbon Dioxide 26 mmol/L (22-29); Chloride 105 mmol/L (96-108); Creatinine Clr Calc Pharmacy 78.5; Estimated Glomerular Filt Rate > 60; Glucose Random 351 mg/dL (60-115); Potassium 4.4 mmol/L (3.3-5.1); Sodium 139 mmol/L (135-145); Troponin-I High Sensitivity 34.5 ng/L (<3.5-35.0)
[2021-07-23 12:57] LABS: B Type Natriuretic Peptide 931 pg/mL (<100)
--- NOTE | 2021-07-23 14:14 | ED.URI ---
HPI - URI/Sore Throat General Chief Complaint: Upper Respiratory Symptoms Stated Complaint: abnormal labs Time Seen by Provider: 07/23/21 14:12 Source: patient Mode of arrival: ambulatory Limitations: no limitations History of Present Illness HPI Narrative: Patient is a 60-year-old male with a past medical history of type 2 diabetes, heart failure with reduced ejection fraction 30-5%, hypertension, RVH, bacteremia with group G strep. Patient was referred to the emergency department from [facility] he had elevated quantitative D-dimer obtained yesterday; 0.70. The patient reports that he tested positive for COVID-19 3 weeks ago, he experienced 3 days of cough and shortness of breath at that time. For the past 2-2.5 weeks he has been experiencing increasing shortness of breath. He compares it to a prior history of asthma he experienced as a child. He has been trying albuterol inhalers from his PCP without significant relief. He was recently treated with 5 days of prednisone followed by 4 days without and restarted on prednisone yesterday evening. He denies fevers, chills, dizziness, lightheadedness, neck pain, chest pain, palpitations, nausea, vomiting, abdominal pain, lower extremity pain lower extremity edema or swelling, recent extended travel, recent immobilization/hospitalization/surgery, prior history of DVT/PE, personal history of cancer. Related Data Home Medications Medication Instructions Recorded Confirmed cetirizine 10 mg tablet 1 tab PO DAILY 02/27/21 07/22/21 fluticasone propionate 50 1 spray INTRANASAL BID 02/27/21 07/22/21 mcg/actuation nasal spray,suspension albuterol sulfate 90 mcg/actuation 1 inh INHALATION QID 07/22/21 07/22/21 aerosol inhaler prednisone 5 mg tablet 5 mg PO DAILY 07/22/21 07/22/21 Previous Rx's Medication Instructions Recorded melatonin 5 mg tablet 5 mg PO BEDTIME PRN #30 tab 07/22/21 Allergies Allergy/AdvReac Type Severity Reaction Status Date / Time penicillin V Allergy Severe Swollen Verified 07/22/21 14:21 face Penicillins [PENICILLINS] Allergy Severe ANGIOEDEMA Verified 07/22/21 14:21 shellfish derived Allergy Severe ANAPHYLAXIS Verified 07/22/21 14:21 [SHELLFISH DERIVED] Review of Systems Review of Systems: Constitutional : No Fever, No Chills ENT/Mouth : No Hoarseness, No sore throat, No Rhinorrhea Eyes: No Redness, No Discharge, No Vision Changes Cardiovascular : No Chest Pain, positive SOB, positive Dyspnea on Exertion, No Edema Respiratory : positive Cough, No Sputum, positive Wheezing, Gastrointestinal : No Nausea, No Vomiting, No Diarrhea, No abdominal Pain Genitourinary : No Dysuria, No Hematuria Musculoskeletal : No joint pain, No Myalgias Skin : No rash Neuro : No Weakness, No Numbness, No Headache Psych : No anxiety, depression Heme/Lymph: No Bruising, No Bleeding Endocrine : No Polyuria, No Polydipsia All other systems reviewed and are negative [facility] Past Medical History Medical History (Updated 07/23/21 @ 17:22 by Tameka Cifuentes [employer]) Asthma Bacteremia Chronic HFrEF (heart failure with reduced ejection fraction) Elevated troponin HFrEF (heart failure with reduced ejection fraction) Hypertension New onset type 2 diabetes mellitus RVH (right ventricular hypertrophy) Streptococcus infection, group G Tobacco abuse Tobacco abuse Surgical History Hx of appendectomy Family History Family History (Updated 07/22/21 @ 14:23 by Ana Dumont) Mother Breast cancer Social History Social History (Updated 07/22/21 @ 14:23 by Ana Dumont) Household Members: Children Housing: Apartment Do you presently have visiting nurse or other home services: No Alcohol intake: current Alcohol intake frequency: does not drink Alcohol type: beer Patient Tobacco Use Status: Current everyday Tobacco user Tobacco use type: Cigarette Cigarette Packs Per Day: 0.5 Cigarettes Per Day: 10.0 Smoked in Last 30 Days: No e-Cigarette/Vaping Use: Never Used Second Hand Smoke Exposure: Yes Use of substances other than those prescribed or required for medical reasons: No Advance Directives: No Advance Directives Information Provided: No service: No Current occupational status: employed Physical Exam Vital Signs: Vital Signs: Last Vital Signs Temp 98 F 07/23/21 12:00 Pulse 103 H 07/23/21 14:47 Resp 16 07/23/21 14:47 BP 150/89 H 07/23/21 14:47 Pulse Ox 94 07/23/21 14:47 BMI result Body Mass Index 28.3 Vital signs have been reviewed and appeared to be correct. Blood pressure elevated 150/89. Heart rate mildly elevated 103.? Respiration rate normal. Temperature normal.? Oxygen saturation normal. Appearance: Alert.?Oriented to person, place and time. No acute distress.?Normal affect. Eyes: Pupils equal, round and reactive to light.? ENT: Pharynx normal.?? Neck: Normal inspection.? Neck supple.?? CVS: Heart sounds normal. Normal heart rate and rhythm.? Pulses normal.?? Respiratory: No respiratory distress.? Lung sounds with mild expiratory wheezing in the upper lobes otherwise clear bilaterally. Abdomen: Soft and non-tender. Normoactive bowel sounds. No pulsatile mass.?? Skin: Skin warm and dry.? Normal skin color.? Normal skin turgor.?? Extremities: No lower extremity edema.? No calf ttp? Neuro: Moves all extremities spontaneously. Sensation intact bilaterally. No focal neuro deficits. Ambulates with normal steady gait. Course Course Course Narrative: Patient is a 60-year-old male being evaluated emergency department for shortness of breath. Given his elevated D-dimer obtained outpatient will obtain CT angio of the chest to evaluate for pulmonary embolism in addition to bilateral lower extremity ultrasound to exclude DVT. CBC and BMP to evaluate for leukocytosis, anemia, normal electrolytes, normal renal function. His labs obtained from triage revealed a blood sugar of 351, states he last ate ?earlier this morning?. I suspect that his elevated blood sugar is secondary to a combination of his diabetes and treatment with prednisone. Will obtain repeat POC glucose. Reevaluation(s) Reevaluation #1: BNP is elevated at 931 though this is similar to prior level obtained February 2021 at 859, clinically he does not appear to be fluid overloaded, an outpatient chest x-ray obtained yesterday provides an impression of enlarged cardiac silhouette without acute disease of his chest. CBC is unremarkable. Electrolytes are normal, BUN is pending, creatinine is 1.16. His troponin is 34.5, will obtain repeat 3 hours from initial draw. Repeat POC glucose is 504, no concern for DKA at this time as bicarb and anion gap are normal. Regular insulin 5 units IV ordered at this time. Time: 14:49 Reevaluation #2: Advised by Radiology that due to his severe shellfish allergy they recommend premedicating the patient prior to obtaining IV contrast. Patient has received multiple CTs in the past with contrast and without any reaction. Spoke with Radiology who strongly prefer that patient be premedicated. Given that his blood sugar level is greater than 500 would not administer Solu-Medrol IV or additional prednisone at this time, patient to be medicated with Benadryl 50 mg IV and will have CT obtained just after. Spoke with nursing staff and they are aware of the plan. Time: 15:06 Reevaluation #3: Ultrasound of bilateral lower extremities demonstrated no DVT there is an incidental finding of a small left popliteal cyst. Repeat troponin obtained at 1527, 3 hours after initial was 44.9, unlikely to be ACS is there is no increased by 50%. Repeat POC glucose at 1630, 1 hour after regular insulin 5 units IV was 281. CT angio of the chest reveals no pulmonary embolism. There is enlarged pulmonary arteries and reflux of contrast into hepatic veins suggestive of elevated right heart pressure, which is to be expected considering his history of right ventricular hypertrophy. Walking O2 saturation trial reveals maintenance >94% on room air. Discussed results with patient, and advised of plan for discharge home. He is agreeable and has a follow-up appointment scheduled with his primary care provider tomorrow. Discussed reasons to return to the emergency department, including but not limited to severe worsening shortness of breath, chest pain, confusion, difficulty speech, unilateral numbness or tingling, dizziness, presyncope/syncope nausea with persistent vomiting or any new or concerning symptoms. Time: 17:04 MDM - URI/Sore Throat Medical Records Attestation: I reviewed the patient's medical records. Lab Data Attestation: I reviewed the patient's lab results. Result diagrams: 07/23/21 12:16 07/23/21 12:16 Labs: Lab Results 07/23/21 07/23/21 07/23/21 Range/Units 12:16 12:16 12:16 WBC 9.1 (4.8-10.8) X10*3/uL RBC 4.72 (4.60-5.80) X10*6/uL Hgb 14.3 (14.0-18.0) g/dl Hct 43.6 (42.0-52.0) % MCV 92.4 (80.0-98.0) fL MCH 30.3 (27.0-33.0) pg MCHC 32.8 (31.0-36.0) g/dl RDW 14.5 (11.0-16.0) % Plt Count 211 (160-400) X10*3/uL MPV 10.0 (9.4-12.4) fL Immature Gran % (Auto) 0.3 (0.0-0.4) % Neut % (Auto) 88.4 H (45-73) % Lymph % (Auto) 7.4 L (20-40) % [place] % (Auto) 3.8 (2-11) % Eos % (Auto) 0.0 (0-4) % Baso % (Auto) 0.1 (0-2) % Lymph # (Auto) 0.7 L (1.2-4.9) X10*3/uL [place] # (Auto) 0.3 (0.1-1.2) X10*3/uL Eos # (Auto) 0.0 (0.0-0.4) X10*3/uL Baso # (Auto) 0.0 (0.0-0.2) X10*3/uL Abs Immat Gran (auto) 0.03 (0.00-0.03) X10*3/uL Absolute Neuts (auto) 8.0 (2.0-8.3) x10*3/uL Absolute Nucleated RBC 0.000 (0.0-0.012) X10*3/uL Nucleated RBC % (auto) 0.0 (0.0-0.2) /100WBC Sodium 139 (135-145) mmol/L Potassium 4.4 (3.3-5.1) mmol/L Chloride 105 (96-108) mmol/L Carbon Dioxide 26 (22-29) mmol/L Anion Gap 12 (12-20) BUN 19 H (9-16) mg/dL Creatinine 1.16 (0.5-1.4) mg/dL Estim Creat Clear Calc 78.5 Estimated GFR > 60 POC Glucose (60-115) mg/dL Random Glucose 351 H* (60-115) mg/dL Calcium 9.1 D (8.4-10.2) mg/dL Troponin I High Sens 34.5 (<3.5-35.0) ng/L B-Natriuretic Peptide (<100) pg/mL 07/23/21 07/23/21 07/23/21 Range/Units 12:16 14:49 15:27 WBC (4.8-10.8) X10*3/uL RBC (4.60-5.80) X10*6/uL Hgb (14.0-18.0) g/dl Hct (42.0-52.0) % MCV (80.0-98.0) fL MCH (27.0-33.0) pg MCHC (31.0-36.0) g/dl RDW (11.0-16.0) % Plt Count (160-400) X10*3/uL MPV (9.4-12.4) fL Immature Gran % (Auto) (0.0-0.4) % Neut % (Auto) (45-73) % Lymph % (Auto) (20-40) % [place] % (Auto) (2-11) % Eos % (Auto) (0-4) % Baso % (Auto) (0-2) % Lymph # (Auto) (1.2-4.9) X10*3/uL [place] # (Auto) (0.1-1.2) X10*3/uL Eos # (Auto) (0.0-0.4) X10*3/uL Baso # (Auto) (0.0-0.2) X10*3/uL Abs Immat Gran (auto) (0.00-0.03) X10*3/uL Absolute Neuts (auto) (2.0-8.3) x10*3/uL Absolute Nucleated RBC (0.0-0.012) X10*3/uL Nucleated RBC % (auto) (0.0-0.2) /100WBC Sodium (135-145) mmol/L Potassium (3.3-5.1) mmol/L Chloride (96-108) mmol/L Carbon Dioxide (22-29) mmol/L Anion Gap (12-20) BUN (9-16) mg/dL Creatinine (0.5-1.4) mg/dL Estim Creat Clear Calc Estimated GFR POC Glucose 504 H* (60-115) mg/dL Random Glucose (60-115) mg/dL Calcium (8.4-10.2) mg/dL Troponin I High Sens 44.9 H (<3.5-35.0) ng/L B-Natriuretic Peptide 931 H (<100) pg/mL 07/23/21 Range/Units 16:30 WBC (4.8-10.8) X10*3/uL RBC (4.60-5.80) X10*6/uL Hgb (14.0-18.0) g/dl Hct (42.0-52.0) % MCV (80.0-98.0) fL MCH (27.0-33.0) pg MCHC (31.0-36.0) g/dl RDW (11.0-16.0) % Plt Count (160-400) X10*3/uL MPV (9.4-12.4) fL Immature Gran % (Auto) (0.0-0.4) % Neut % (Auto) (45-73) % Lymph % (Auto) (20-40) % [place] % (Auto) (2-11) % Eos % (Auto) (0-4) % Baso % (Auto) (0-2) % Lymph # (Auto) (1.2-4.9) X10*3/uL [place] # (Auto) (0.1-1.2) X10*3/uL Eos # (Auto) (0.0-0.4) X10*3/uL Baso # (Auto) (0.0-0.2) X10*3/uL Abs Immat Gran (auto) (0.00-0.03) X10*3/uL Absolute Neuts (auto) (2.0-8.3) x10*3/uL Absolute Nucleated RBC (0.0-0.012) X10*3/uL Nucleated RBC % (auto) (0.0-0.2) /100WBC Sodium (135-145) mmol/L Potassium (3.3-5.1) mmol/L Chloride (96-108) mmol/L Carbon Dioxide (22-29) mmol/L Anion Gap (12-20) BUN (9-16) mg/dL Creatinine (0.5-1.4) mg/dL Estim Creat Clear Calc Estimated GFR POC Glucose 281 H (60-115) mg/dL Random Glucose (60-115) mg/dL Calcium (8.4-10.2) mg/dL Troponin I High Sens (<3.5-35.0) ng/L B-Natriuretic Peptide (<100) pg/mL Imaging Data CT scan - chest: Radiologist's impression: IMPRESSION: No evidence of pulmonary embolism. Enlarged pulmonary arteries. Enlarged heart. Reflux of contrast into the hepatic veins suggestive of elevated right heart pressure. Left renal cyst. Bilateral lower extremity US: Radiologist's impression: IMPRESSION: No DVT demonstrated in the bilateral lower extremity. ? Small left popliteal fossa cyst. ECG Data Attestation: I personally reviewed and interpreted this ECG as follows: ECG interpretation date: 07/23/21 ECG interpretation time: 15:24 Prior ECG tracings: available for review Interpretation: Rate: 99 Rhythm:? Normal sinus rhythm, incomplete right bundle Normal P waves.? Normal MAKENNA.?? Normal QRS complex.?? ST T wave :??T-wave inversions in lead II, III, aVF consistent with prior qTC: 479 prior studies:? February 2021 The study has been interpreted contemporaneously by me. Discharge Plan Discharge Clinical Impression: Asthma exacerbation, Type 2 diabetes mellitus Patient Disposition: Home, Self-Care Instructions: Asthma (ED) Additional Instructions: You were evaluated in the emergency department for concerns about your shortness of breath and elevated D-Dimer. Your blood work today with overall normal, this CT we did of her chest indicates you do not have a pulmonary embolism, a blood clot in your lungs. The ultrasound we performed of your legs reveals that you do not have a DVT, blood clot in your legs. Your EKG was normal when compared to your past EKGs. At this time it is safe for you to be discharged home and follow-up with your primary care provider as scheduled tomorrow. As we discussed, your blood sugars have been significantly elevated while in the emergency department ranging from 280 to 503. This can happen in diabetic patients who are taking prednisone. You advised me that you only have 1 day left of prednisone, and I would encourage you to discuss further management of your blood sugar levels with your primary care provider should you require steroids in the future. Prescriptions: No Action cetirizine 10 mg tablet 1 tab PO DAILY 0RF fluticasone propionate 50 mcg/actuation spray,suspension 1 spray intranasal BID 0RF prednisone 5 mg tablet 5 mg PO DAILY 0RF Rx Instructions: take 2 tabs a day albuterol sulfate 90 mcg/actuation HFA aerosol inhaler 1 inh inhalation QID 0RF melatonin 5 mg tablet 5 mg PO BEDTIME PRN (Reason: sleep) Qty: 30 2RF Interventions: ED Discharge Assessment Last Done: 07/23/21 17:47 Discharge Date/Time: 07/23/21 17:47
[2021-07-23 14:47] VITALS: BP 150/89; PULSE 103; RESP 16; O2SAT 94
[2021-07-23 14:54] LABS: Glucose, Whole Blood 504 mg/dL (60-115)
[2021-07-23 15:02] LABS: Blood Urea Nitrogen 19 mg/dL (9-16); Calcium 9.1 mg/dL (8.4-10.2)
[2021-07-23] MEDS: Insulin Regular, Human 100 UNIT/ML 3 ML VIAL IVPUSH (15:09)
[2021-07-23 15:53] LABS: Troponin-I High Sensitivity 44.9 ng/L (<3.5-35.0)
[2021-07-23] MEDS: diphenhydrAMINE HCL 50 MG/ML VIAL IVPUSH (16:04)
[2021-07-23] MEDS: iohexoL 350 MG/ML 100 ML INFUS..BTL 71 ML IV (16:26)
[2021-07-23 16:33] LABS: Glucose, Whole Blood 281 mg/dL (60-115)
== END 2021-07-23 17:47 | disposition home or self-care (01) ==
PROVIDERS: Nurse Practitioner Family; Emergency Provider Emergency Medicine; PCP Internal Medicine
DX: J45.901 Unspecified asthma with (acute) exacerbation (principal); E11.9 Type 2 diabetes mellitus without complications; R06.02 Shortness of breath; I11.0 Hypertensive heart disease with heart failure; I50.22 Chronic systolic (congestive) heart failure; F17.200 Nicotine dependence, unspecified, uncomplicated
CPT/HCPCS: 36415; 71275; 80048; 82947; 83880; 84484; 85025; 93005; 93970; 96374; 96375; 99284; J1200; Q9967

== ENCOUNTER → 2021-08-26 14:51 | Outpatient (REF) | payer OTHER, SELFPAY | LOC: HO.SL 14:51 | PROVIDERS: PCP Nurse Practitioner Family; Visit Provider Nurse Practitioner Family | DX: Z13.89 Encounter for screening for other disorder (principal) ==

== ENCOUNTER → 2021-08-28 14:04 | Outpatient (BNVA) | payer OTHER, SELFPAY | PROVIDERS: PCP Nurse Practitioner Family; Visit Provider Internal Medicine | DX: G47.9 Sleep disorder, unspecified (principal); G47.10 Hypersomnia, unspecified; J45.909 Unspecified asthma, uncomplicated; Z87.891 Personal history of nicotine dependence | CPT/HCPCS: 99202 ==

== ENCOUNTER 2021-09-16 09:50 | Inpatient (IN) | payer OTHER, SELFPAY ==
[2021-09-16] VITALS (7 sets, daily range): BP systolic 141–164; BP diastolic 95–115; PULSE 101–110; RESP 14–20; TEMP 36.5–37.1; O2SAT 92–97; BMI 28.8; BMI 28.3
--- NOTE | ~2021-09-16 | XR_ITS ---
EXAMINATION: XR CHEST CLINICAL INFORMATION: SOB and wheezing COMPARISON: None TECHNIQUE: Frontal view of the chest was obtained. FINDINGS: The lungs are well-expanded and clear. Heart size is enlarged. The pulmonary vascularity is slightly prominent suspicious of mild congestion. No pleural effusion seen. No bony abnormality.. XR/XR chest 1V IMPRESSION: Mild cardiomegaly with mild pulmonary vascular congestion.
--- NOTE | 2021-09-16 10:34 | ECG_ITS ---
Test Reason : dyspnea Blood Pressure : / mmHG Vent. Rate : 103 BPM Atrial Rate : 103 BPM P-R Int : 172 ms QRS Dur : 112 ms QT Int : 364 ms P-R-T Axes : 049 -77 019 degrees QTc Int : 476 ms Sinus tachycardia Possible Left atrial enlargement Left anterior fascicular block Minimal voltage criteria for LVH, may be normal variant ( Donny product ) Nonspecific T wave abnormality Abnormal ECG When compared with ECG of 23-JUL-2021 12:07, Incomplete right bundle branch block is no longer Present Referred By: Barbara Matthews Electronically Signed By:LAURYN CHRISTIE MD
--- NOTE | 2021-09-16 10:34 | ED.SOB ---
HPI - SOB/Dyspnea General Chief Complaint: Dyspnea Stated Complaint: diff. breathing Time Seen by Provider: 09/16/21 10:33 Source: patient Mode of arrival: ambulatory Limitations: no limitations History of Present Illness HPI Narrative: 60 y/o male with history of asthma, possible COPD with significant smoking history, HFrEF (30-35% on ECHO 02/2021), HTN, DM2, history of Group G Strep Bacteremia 2/2 skin infection of the neck in Feb 2021, hx COVID Jun 2021 who presents to the ER with worsening SOB and GONZALES for the last few days. He admits to not being compliant with his lasix or his nebulizer treatments at home. He states when he bends down or does any exertion his shortness of breath has been worse than usual. He has new swelling of his lower legs. He denies any weight gain however. He reports compliance with low sodium diet. He has not had any chest pain, nausea, diaphoresis, vomiting, fever, chills, cough, or URI symptoms. MD elicited complaint: shortness of breath Pertinent past history: COPD, asthma and congestive heart failure Onset (ago): day(s) Timing: intermittent Severity: moderate Exacerbating factors: exertion and movement Relieving factors: rest Known history of: COPD, asthma, congestive heart failure and diabetes Associated symptoms: wheezing, orthopnea and lightheadedness Treatment prior to arrival: none Related Data Home oxygen amount: none Home Medications Medication Instructions Recorded Confirmed cetirizine 10 mg tablet 1 tab PO DAILY 02/27/21 07/22/21 albuterol sulfate 90 mcg/actuation 1 inh INHALATION QID 07/22/21 07/22/21 aerosol inhaler fluticasone 500 mcg-salmeterol 50 1 inh INHALATION BID 08/28/21 mcg/dose blistr powdr for inhalation (Advair Diskus) tiotropium bromide 2.5 2 puff INHALATION DAILY 08/28/21 08/28/21 mcg/actuation mist for inhalation (Spiriva Respimat) Previous Rx's Medication Instructions Recorded furosemide 40 mg tablet (Lasix) 40 mg PO DAILY #30 tab 09/16/21 Allergies Allergy/AdvReac Type Severity Reaction Status Date / Time penicillin V Allergy Severe Swollen Verified 08/28/21 17:10 face Penicillins [PENICILLINS] Allergy Severe ANGIOEDEMA Verified 08/28/21 17:10 shellfish derived Allergy Severe ANAPHYLAXIS Verified 08/28/21 17:10 [SHELLFISH DERIVED] Review of Systems Review of Systems: Constitutional: No Fever, No Chills ENT/Mouth: No sore throat, No Rhinorrhea, No Swallowing Difficulty Eyes: No Eye Pain, No Swelling, No Redness Cardiovascular: No Chest Pain, + SOB, No Orthopnea, + Edema Respiratory: No Cough, No Sputum, + Wheezing, + dyspnea Gastrointestinal: No Nausea, No Vomiting, No Diarrhea, No abdominal Pain Genitourinary: No Dysuria, No Urinary Frequency, No Hematuria Musculoskeletal: No joint pain, No Myalgias Skin: No Skin Lesions, No rash Neuro: No Weakness, No Numbness, + Dizziness, No Headache Psych: No Anxiety/Panic, No Depression Heme/Lymph: No Bruising, No Lymphadenopathy Endocrine: No Polyuria, No Polydipsia [facility] Past Medical History Medical History (Updated 09/16/21 @ 12:29 by YAZAN Prar) Asthma Asthma Bacteremia Chronic HFrEF (heart failure with reduced ejection fraction) Elevated troponin HFrEF (heart failure with reduced ejection fraction) Hypertension New onset type 2 diabetes mellitus RVH (right ventricular hypertrophy) Smoker Streptococcus infection, group G Tobacco abuse Tobacco abuse Surgical History Hx of appendectomy Family History Family History Mother Breast cancer Social History Social History Household Members: Children Housing: Apartment Do you presently have visiting nurse or other home services: No Alcohol intake: current Alcohol intake frequency: does not drink Alcohol type: beer Patient Tobacco Use Status: Current someday Tobacco user Tobacco use type: Cigarette Cigarette Packs Per Day: 0.5 Cigarettes Per Day: 10.0 e-Cigarette/Vaping Use: Never Used Second Hand Smoke Exposure: Yes Advance Directives: No Advance Directives Information Provided: No service: No Current occupational status: employed Physical Exam Vital Signs: Vital Signs: Last Vital Signs Temp 98.5 F 09/16/21 10:17 Pulse 110 H 09/16/21 10:36 Resp 18 09/16/21 11:39 BP 141/110 H 09/16/21 10:36 Pulse Ox 96 09/16/21 10:36 BMI result Body Mass Index 28.8 Appearance: Alert. Oriented X3. No acute distress. Eyes: Pupils equal, round and reactive to light. Bilateral conjunctival injection, glossy watery eyes ENT: Pharynx normal. Neck: Normal inspection. Neck supple. CVS: Tachycardic, regular rhythm. Pulses normal. Respiratory: No respiratory distress. Breath sounds with diminished lung sounds throughout with faint end expiratory wheezes Abdomen: Soft and nontender. +BS x4 Skin: Skin warm and dry. Normal skin color. Normal skin turgor. No rashes. Extremities: 2+ lower extremity edema of the lower legs Neuro: Oriented X 3. No motor deficit. No sensory deficit. Course Course Course Narrative: 60 y/o male with history of HFrEF EF 30-35%, COPD/asthma, active smoker (down to 3 cigarettes per day) who presents to the ER from home c/o worsening GONZALES for the last 3-4 days and new LE edema. He states he used to be on lasix but he is not currently taking any. He is not using his nebulizers. He appears overloaded on exam and has wheezing. Concern for CHF vs COPD exacerbation. duoneb and po prendisone ordered for now. await labs prior to diuresis. Will get EKG, CXR, lab workup. SpO2 90% at times while at rest. Anticipate admission. Reevaluation(s) Reevaluation #1: BNP 1078, up from prior. CXR with cardiomegaly and pulmonary vascular congestion. Troponin 61 but no chest pain or new ischemic changes on EKG, will trend in 3 hours. Patient initially wanted to be discharged home wt concern for obligations but is now agreeable to admission. IV lasix ordered. plan for admission for acute CHF exacerbation. MDM - SOB/Dyspnea Medical Records Attestation: I reviewed the patient's medical records. Lab Data Attestation: I reviewed the patient's lab results. Result diagrams: 09/16/21 10:55 09/16/21 10:55 Labs: Lab Results 09/16/21 09/16/21 09/16/21 Range/Units 10:55 10:55 10:55 WBC 5.1 (4.8-10.8) X10*3/uL RBC 5.06 (4.60-5.80) X10*6/uL Hgb 15.1 (14.0-18.0) g/dl Hct 46.1 (42.0-52.0) % MCV 91.1 (80.0-98.0) fL MCH 29.8 (27.0-33.0) pg MCHC 32.8 (31.0-36.0) g/dl RDW 14.5 (11.0-16.0) % Plt Count 193 (160-400) X10*3/uL MPV 9.3 L (9.4-12.4) fL Immature Gran % (Auto) 0.2 (0.0-0.4) % Neut % (Auto) 57.2 (45-73) % Lymph % (Auto) 28.2 (20-40) % Bailey % (Auto) 11.5 H (2-11) % Eos % (Auto) 2.3 (0-4) % Baso % (Auto) 0.6 (0-2) % Lymph # (Auto) 1.5 (1.2-4.9) X10*3/uL Bailey # (Auto) 0.6 (0.1-1.2) X10*3/uL Eos # (Auto) 0.1 (0.0-0.4) X10*3/uL Baso # (Auto) 0.0 (0.0-0.2) X10*3/uL Abs Immat Gran (auto) 0.01 (0.00-0.03) X10*3/uL Absolute Neuts (auto) 2.9 (2.0-8.3) x10*3/uL Absolute Nucleated RBC 0.000 (0.0-0.012) X10*3/uL Nucleated RBC % (auto) 0.0 (0.0-0.2) /100WBC Sodium 142 (135-145) mmol/L Potassium 4.4 (3.3-5.1) mmol/L Chloride 105 (96-108) mmol/L Carbon Dioxide 32 H (22-29) mmol/L Anion Gap 9 L (12-20) BUN 15 (9-16) mg/dL Creatinine 0.97 (0.5-1.4) mg/dL Estim Creat Clear Calc 94.7 Estimated GFR > 60 Random Glucose 137 H D (60-115) mg/dL Lactic Acid 1.1 (0.5-2.0) mmol/L Calcium 9.8 D (8.4-10.2) mg/dL Magnesium 2.0 (1.6-2.6) mg/dL Total Bilirubin 1.1 H (0.0-1.0) mg/dL Direct Bilirubin 0.4 (0.0-0.5) mg/dL AST 27 (5-37) U/L ALT 26 (0-40) U/L Alkaline Phosphatase 69 (39-117) U/L Troponin I High Sens (<3.5-35.0) ng/L B-Natriuretic Peptide (<100) pg/mL Total Protein 6.9 (6.5-8.0) g/dL Albumin 3.9 (3.5-5.0) g/dL COVID-19 (NAIDA) (Negative) COVID-19 Clin Com Influenza Type A (MILTON) (Negative) Influenza Type B (MILTON) (Negative) Influenza A & B Note 09/16/21 09/16/21 09/16/21 Range/Units 10:55 10:55 10:55 WBC (4.8-10.8) X10*3/uL RBC (4.60-5.80) X10*6/uL Hgb (14.0-18.0) g/dl Hct (42.0-52.0) % MCV (80.0-98.0) fL MCH (27.0-33.0) pg MCHC (31.0-36.0) g/dl RDW (11.0-16.0) % Plt Count (160-400) X10*3/uL MPV (9.4-12.4) fL Immature Gran % (Auto) (0.0-0.4) % Neut % (Auto) (45-73) % Lymph % (Auto) (20-40) % Bailey % (Auto) (2-11) % Eos % (Auto) (0-4) % Baso % (Auto) (0-2) % Lymph # (Auto) (1.2-4.9) X10*3/uL Bailey # (Auto) (0.1-1.2) X10*3/uL Eos # (Auto) (0.0-0.4) X10*3/uL Baso # (Auto) (0.0-0.2) X10*3/uL Abs Immat Gran (auto) (0.00-0.03) X10*3/uL Absolute Neuts (auto) (2.0-8.3) x10*3/uL Absolute Nucleated RBC (0.0-0.012) X10*3/uL Nucleated RBC % (auto) (0.0-0.2) /100WBC Sodium (135-145) mmol/L Potassium (3.3-5.1) mmol/L Chloride (96-108) mmol/L Carbon Dioxide (22-29) mmol/L Anion Gap (12-20) BUN (9-16) mg/dL Creatinine (0.5-1.4) mg/dL Estim Creat Clear Calc Estimated GFR Random Glucose (60-115) mg/dL Lactic Acid (0.5-2.0) mmol/L Calcium (8.4-10.2) mg/dL Magnesium (1.6-2.6) mg/dL Total Bilirubin (0.0-1.0) mg/dL Direct Bilirubin (0.0-0.5) mg/dL AST (5-37) U/L ALT (0-40) U/L Alkaline Phosphatase (39-117) U/L Troponin I High Sens 61.9 H (<3.5-35.0) ng/L B-Natriuretic Peptide 1078 H (<100) pg/mL Total Protein (6.5-8.0) g/dL Albumin (3.5-5.0) g/dL COVID-19 (NAIDA) Negative (Negative) COVID-19 Clin Com See Note Influenza Type A (MILTON) Negative (Negative) Influenza Type B (MILTON) Negative (Negative) Influenza A & B Note See Note ECG Data Attestation: I personally reviewed and interpreted this ECG as follows: ECG interpretation date: 09/16/21 ECG interpretation time: 11:17 Prior ECG tracings: available for review Interpretation: Sinus heart rate 103 beats per minute, normal MN interval, left anterior fascicular block, nonspecific T-wave abnormality, no ST segment elevations or depressions. No significant change from prior Critical Care Time Critical Care Time Critical Care Time: Yes Total Critical Care Time: 35 Attestation: I have personally provided critical care time exclusive of time spent on separately billable procedures. Time includes review of lab data, radiology results, discussion with consultants/hospitalist, and monitoring for potential decompensation. Intervention performed as documented. Discharge Plan Discharge Clinical Impression: Acute exacerbation of CHF (congestive heart failure) Patient Disposition: Admitted As Inpatient
[2021-09-16 11:00] LABS: MANUAL DIFF FLAG NO
[2021-09-16 11:04] LABS: Basophils Percent Auto 0.6 % (0-2); Eosinophils Absolute Auto 0.1 X10*3/uL (0.0-0.4); Eosinophils Percent Auto 2.3 % (0-4); Hematocrit 46.1 % (42.0-52.0); Hemoglobin 15.1 g/dl (14.0-18.0); Imm Gran Abs Auto 0.01 X10*3/uL (0.00-0.03); Imm Gran Pct Auto 0.2 % (0.0-0.4); Lymphocytes Absolute Auto 1.5 X10*3/uL (1.2-4.9); Lymphocytes Percent Auto 28.2 % (20-40); Mean Corpuscular HGB Conc 32.8 g/dl (31.0-36.0); Mean Corpuscular Hemoglobin 29.8 pg (27.0-33.0); Mean Corpuscular Volume 91.1 fL (80.0-98.0); Mean Platelet Volume 9.3 fL (9.4-12.4); Monocytes Absolute Auto 0.6 X10*3/uL (0.1-1.2); Monocytes Percent Auto 11.5 % (2-11); Neutrophils Absolute Auto 2.9 x10*3/uL (2.0-8.3); Neutrophils Percent Auto 57.2 % (45-73); Platelet Count 193 X10*3/uL (160-400); Red Blood Count 5.06 X10*6/uL (4.60-5.80); Red Cell Distribution Width 14.5 % (11.0-16.0); White Blood Count 5.1 X10*3/uL (4.8-10.8)
[2021-09-16] MEDS: predniSONE 10 MG TABLET 50 MG PO (11:11)
[2021-09-16 11:19] LABS: Lactic Acid 1.1 mmol/L (0.5-2.0)
[2021-09-16 11:26] LABS: Alanine Aminotransferase 26 U/L (0-40); Albumin Level 3.9 g/dL (3.5-5.0); Alkaline Phosphatase 69 U/L (39-117); Anion Gap 9 (12-20); Aspartate Amino Transferase 27 U/L (5-37); Bilirubin Direct 0.4 mg/dL (0.0-0.5); Bilirubin Total 1.1 mg/dL (0.0-1.0); Blood Urea Nitrogen 15 mg/dL (9-16); Calcium 9.8 mg/dL (8.4-10.2); Carbon Dioxide 32 mmol/L (22-29); Chloride 105 mmol/L (96-108); Creatinine Clr Calc Pharmacy 94.7; Estimated Glomerular Filt Rate > 60; Glucose Random 137 mg/dL (60-115); Potassium 4.4 mmol/L (3.3-5.1); Sodium 142 mmol/L (135-145); Total Protein 6.9 g/dL (6.5-8.0)
[2021-09-16 11:27] LABS: COVID-19 Test Negative (Negative)
[2021-09-16 11:29] LABS: IDNOW Serial# 08D9AD1C; Influenza A Negative (Negative); Influenza B2 Negative (Negative)
[2021-09-16 11:30] LABS: B Type Natriuretic Peptide 1078 pg/mL (<100); Troponin-I High Sensitivity 61.9 ng/L (<3.5-35.0)
[2021-09-16] MEDS: Albuterol/Iprat 2.5/0.5MG 3 ML AMPUL.NEB INHALE (11:38)
[2021-09-16] MEDS: Furosemide 40 MG/4 ML VIAL IVPUSH ×2 (13:03→14:52)
--- NOTE | 2021-09-16 13:19 | PHA.MEDREC ---
Pharmacy Consult ? Medication Reconciliation Pharmacy has completed the medication reconciliation. spoke with pt. isn't taking meds as often as supposed to be
[2021-09-16 13:24] LABS: Appearance Urine CLEAR; Color Urine YELLOW; Glucose Urine UA NEG (NEG); Leukocyte Esterase Urine NEG (NEG); Nitrite Urine NEG (NEG); PH 5.5 (5.0-8.0); Specific Gravity - Urine >= 1.030 (1.005-1.025); UACC Culture Trigger NO; Urine Blood TRACE (NEG); Urine Ketones NEG (NEG); Urine Protein 2+ MG/DL (NEG-TRACE)
[2021-09-16 13:42] LABS: Mucus Urine 3+ /LPF; RBC Urine 0 /HPF (0); Squamous Epithelial Cell Urine TRACE /LPF; WBC Urine 0 /HPF (0-4)
--- NOTE | 2021-09-16 13:51 | PM.IMHP ---
History of Present Illness Date of Service: 09/16/21 Chief Complaint: dyspnea, cough/ wheeze 60yo M with asthma, possible COPD, chronic HFrEF diagnosed with LVEF 30-35% on TTE during admission for group G streptococcal bacteremia in Feb 2021 with concern for TRACI due to RVH, and DM2 also diagnosed during that admission with A1c 7.4, who presents to the ED with 2 days of worsening exertional dyspnea, PND, and leg swelling. No fever or chest pain. He has not been adherent with his medications lately. He is supposed to be in furosemide, lisinopril, and metoprolol succinate. He denies fever or chills. No nasal congestion. He presented with significant wheezing and leg edema. BNP was 1078 and CXR showed cardiomegaly with pulmonary vascular congestion. Initial hs-Tn-I was 61. He was 40 mg of IV furosemide, 50 mg of PO prednisone, and a Duoneb treatment. Review of Systems Review of Systems: Yes all other systems are reviewed and are negative [facility] Medical History Asthma Asthma Bacteremia Chronic HFrEF (heart failure with reduced ejection fraction) Elevated troponin HFrEF (heart failure with reduced ejection fraction) Hypertension New onset type 2 diabetes mellitus RVH (right ventricular hypertrophy) Smoker Streptococcus infection, group G Tobacco abuse Tobacco abuse Family History Mother Breast cancer Surgical History Hx of appendectomy Social History Household Members: Children Housing: Apartment Do you presently have visiting nurse or other home services: No Alcohol intake: current Alcohol intake frequency: does not drink Alcohol type: beer Patient Tobacco Use Status: Current someday Tobacco user Tobacco use type: Cigarette Cigarette Packs Per Day: 0.5 Cigarettes Per Day: 10.0 e-Cigarette/Vaping Use: Never Used Second Hand Smoke Exposure: Yes Advance Directives: No Advance Directives Information Provided: No service: No Current occupational status: employed Meds Allergies Allergy/AdvReac Type Severity Reaction Status Date / Time penicillin V Allergy Severe Swollen Verified 08/28/21 17:10 face Penicillins [PENICILLINS] Allergy Severe ANGIOEDEMA Verified 08/28/21 17:10 shellfish derived Allergy Severe ANAPHYLAXIS Verified 08/28/21 17:10 [SHELLFISH DERIVED] Active Medications: Current Medications Albuterol Sulfate (Albuterol Sulfate 90 Mcg 8 Gm Inhaler) 1 puff INHALE QID PRN PRN Reason: Shortness Of Breath Or Wheezing Albuterol/Ipratropium (Albuterol/Iprat 2.5/0.5mg 3 Ml Ampul.Neb) ml INHALE Q6H PRN PRN Reason: wheezing Atorvastatin Calcium (Atorvastatin Calcium 10 Mg Tablet) 10 mg PO DAILY [facility] Furosemide (Furosemide 40 Mg/4 Ml Vial) 40 mg IVPUSH Q12H ELANA; Protocol Lisinopril (Lisinopril 10 Mg Tablet) 10 mg PO DAILY ELANA; Protocol Loratadine (Loratadine 10 Mg Tablet) 10 mg PO DAILY PRN PRN Reason: Allergy Symptoms Metoprolol Succinate (Metoprolol Succinate Er 25 Mg Tab.Er.24h) 25 mg PO DAILY [facility]; Protocol Nicotine (Nicotine 7 Mg Patch.Td24) 7 mg TRANSDERMA DAILY [facility] Nicotine Polacrilex (Nicotine Polacrilex 2 Mg Gum) 2 mg BUCCAL Q2H PRN PRN Reason: Nicotine Cravings Non-Formulary Medication (Fluticasone Propion-Salmeterol [Advair Diskus]) 1 puff INHALE BID [facility] Non-Formulary Medication (Tiotropium Free [place]il [Spiriva Respimat]) 2 puff INHALE DAILY [facility] Pharmacy Consult (Consult Rx Perform Med Rec) 1 each MISCELLANE ONCE PRN PRN Reason: Consult order Home Medications Medication Instructions Recorded Confirmed Last Taken Type cetirizine 10 mg tablet 1 tab PO DAILY PRN 02/27/21 09/16/21 Unknown History albuterol sulfate 90 mcg/actuation 1 inh INHALATION QID PRN 07/22/21 09/16/21 Unknown History aerosol inhaler tiotropium bromide 2.5 2 puff INHALATION DAILY 08/28/21 09/16/21 2 Days Ago History mcg/actuation mist for inhalation ~09/14/21 (Spiriva Respimat) atorvastatin 10 mg tablet 1 tab PO DAILY 09/16/21 09/16/21 2 Days Ago History ~09/14/21 fluticasone 250 mcg-salmeterol 50 1 puff INHALATION BID 09/16/21 09/16/21 2 Days Ago History mcg/dose blistr powdr for ~09/14/21 inhalation (Advair Diskus) ipratropium 0.5 mg-albuterol 3 mg 1 amp INHALATION Q6H PRN 09/16/21 09/16/21 Unknown History (2.5 mg base)/3 mL nebulization soln lisinopril 10 mg tablet 10 mg PO DAILY 09/16/21 09/16/21 2 Days Ago History ~09/14/21 metoprolol succinate 25 mg 25 mg PO DAILY 09/16/21 09/16/21 2 Days Ago History tablet,extended release 24 hr ~09/14/21 Physical Exam Vital Signs and Narrative: Vital Signs: Last Vital Signs Temp 98.5 F 09/16/21 10:17 Pulse 104 H 09/16/21 13:27 Resp 19 09/16/21 13:27 BP 164/115 H 09/16/21 13:27 Pulse Ox 97 09/16/21 13:27 BMI result Body Mass Index 28.8 Gen: in mild respiratory distress jake when laying flat HEENT: sclera anicteric, moist mucus membranes Neck: supple, JVD present Lungs: expiratory wheezing at bases Heart: regular rate and rhythm, no murmurs Abd: soft, non-tender, non-distended Ext: 2+ pitting leg edema bilaterally Skin: warm/well-perfused Neuro: alert and oriented x3, no focal findings Psych: appropriate affect Results Labs CBC and Chem 7: 09/16/21 10:55 09/16/21 10:55 Labs: Laboratory Results - last 24 hr 09/16/21 09/16/21 09/16/21 10:55 10:55 10:55 MCV 91.1 MCH 29.8 MCHC 32.8 RDW 14.5 Plt Count 193 MPV 9.3 L Immature Gran % (Auto) 0.2 Neut % (Auto) 57.2 Lymph % (Auto) 28.2 Ashley % (Auto) 11.5 H Eos % (Auto) 2.3 Baso % (Auto) 0.6 Lymph # (Auto) 1.5 Ashley # (Auto) 0.6 Eos # (Auto) 0.1 Baso # (Auto) 0.0 Abs Immat Gran (auto) 0.01 Absolute Neuts (auto) 2.9 Absolute Nucleated RBC 0.000 Nucleated RBC % (auto) 0.0 Anion Gap 9 L Estim Creat Clear Calc 94.7 Estimated GFR > 60 Random Glucose 137 H D Lactic Acid 1.1 Calcium 9.8 D Magnesium 2.0 Total Bilirubin 1.1 H Direct Bilirubin 0.4 AST 27 ALT 26 Alkaline Phosphatase 69 Troponin I High Sens B-Natriuretic Peptide Total Protein 6.9 Albumin 3.9 Urine Color Urine Appearance Urine pH Ur Specific [place] Urine Protein Urine Glucose (UA) Urine Ketones Urine Blood Urine Nitrite Ur Leukocyte Esterase Urine RBC Urine WBC Ur Squamous Epith Cells Urine Bacteria Urine Mucus COVID-19 (NAIDA) COVID-19 Clin Com Influenza Type A (MILTON) Influenza Type B (MILTON) Influenza A & B Note 09/16/21 09/16/21 09/16/21 10:55 10:55 10:55 MCV MCH MCHC RDW Plt Count MPV Immature Gran % (Auto) Neut % (Auto) Lymph % (Auto) Ashley % (Auto) Eos % (Auto) Baso % (Auto) Lymph # (Auto) Ashley # (Auto) Eos # (Auto) Baso # (Auto) Abs Immat Gran (auto) Absolute Neuts (auto) Absolute Nucleated RBC Nucleated RBC % (auto) Anion Gap Estim Creat Clear Calc Estimated GFR Random Glucose Lactic Acid Calcium Magnesium Total Bilirubin Direct Bilirubin AST ALT Alkaline Phosphatase Troponin I High Sens 61.9 H B-Natriuretic Peptide 1078 H Total Protein Albumin Urine Color Urine Appearance Urine pH Ur Specific [place] Urine Protein Urine Glucose (UA) Urine Ketones Urine Blood Urine Nitrite Ur Leukocyte Esterase Urine RBC Urine WBC Ur Squamous Epith Cells Urine Bacteria Urine Mucus COVID-19 (NAIDA) Negative COVID-19 Clin Com See Note Influenza Type A (MILTON) Negative Influenza Type B (MILTON) Negative Influenza A & B Note See Note 09/16/21 13:16 MCV MCH MCHC RDW Plt Count MPV Immature Gran % (Auto) Neut % (Auto) Lymph % (Auto) Ashley % (Auto) Eos % (Auto) Baso % (Auto) Lymph # (Auto) Ashley # (Auto) Eos # (Auto) Baso # (Auto) Abs Immat Gran (auto) Absolute Neuts (auto) Absolute Nucleated RBC Nucleated RBC % (auto) Anion Gap Estim Creat Clear Calc Estimated GFR Random Glucose Lactic Acid Calcium Magnesium Total Bilirubin Direct Bilirubin AST ALT Alkaline Phosphatase Troponin I High Sens B-Natriuretic Peptide Total Protein Albumin Urine Color YELLOW Urine Appearance CLEAR Urine pH 5.5 Ur Specific [place] >= 1.030 H Urine Protein 2+ H Urine Glucose (UA) NEG Urine Ketones NEG Urine Blood TRACE Urine Nitrite NEG Ur Leukocyte Esterase NEG Urine RBC 0 Urine WBC 0 Ur Squamous Epith Cells TRACE Urine Bacteria NONE Urine Mucus 3+ COVID-19 (NAIDA) COVID-19 Clin Com Influenza Type A (MILTON) Influenza Type B (MILTON) Influenza A & B Note ITS Impressions Chest X-Ray 09/16/21 11:50 IMPRESSION: Mild cardiomegaly with mild pulmonary vascular congestion. Imaging Radiologist's Impressions: Impressions Chest X-Ray 09/16/21 11:50 IMPRESSION: Mild cardiomegaly with mild pulmonary vascular congestion. EKG shows NSR, LAFB, PEGGY, and LVH. No ischemic changes. Assessment and Plan (1) Acute decompensated heart failure: Status: Acute (2) Asthma with COPD with exacerbation: Status: Acute Plan 60yo M with asthma, possible COPD, tobacco abuse, HTN, recently diagnosed HFrEF + DM2, presenting with exertional dyspnea, non-productive cough, and wheeze concerning for CHF and asthma/COPD exacerbations. # ADHF; [id number] HFrEF - admit to telemetry, diurese with IV furosemide, monitor lytes + I/O, trend weight + BNP, repeat TTE, consult Cardiology, Na restriction - continue neurohormonal modulation with metoprolol succinate and lisinopril - to consider SGLT2 inhibitor as outpt for DM2 control as well as for management of CHF # asthma/COPD exacerbation - IV methylprednisolone, prn nebulizer treatments - continue triple controller inhaler therapy # DM2 - A1c, correction-dose lispro # tobacco abuse - down to 5 cig/d; start combination NRT # VTE ppx - LMWH # code - full Quality Stroke Does the patient have a stroke diagnosis?: No VTE Prior VTE?: No VTE Risk Level:: Medical - moderate - high VTE Device Contraindication: N/A - Device Ordered VTE Drug Contraindication: N/A - Med Ordered
[2021-09-16 14:26] LABS: Troponin-I High Sensitivity 53.6 ng/L (<3.5-35.0)
[2021-09-16] MEDS: methylPREDNISolone Sod Succ 40 MG/ML VIAL IVPUSH (15:08)
[2021-09-16] MEDS: Nicotine 7 MG PATCH.TD24 TRANSDERMA (16:37)
[2021-09-16 17:25] LABS: Glucose, Whole Blood 276 mg/dL (60-115)
[2021-09-16] MEDS: Insulin Lispro 100 UNIT/ML 3 ML VIAL SUBCUT ×2 (18:22→22:05)
[2021-09-16] MEDS: 0.9 % Sodium Chloride Flush 3 ML SYRINGE IVFLUSH (18:23)
[2021-09-16 21:16] LABS: Glucose, Whole Blood 340 mg/dL (60-115)
[2021-09-17] VITALS (8 sets, daily range): BP systolic 128–164; BP diastolic 32–102; PULSE 96–120; RESP 14–19; TEMP 36–36.9; O2SAT 90–98
[2021-09-17] MEDS: Furosemide 40 MG/4 ML VIAL IVPUSH (02:24)
[2021-09-17] MEDS: 0.9 % Sodium Chloride Flush 3 ML SYRINGE IVFLUSH ×3 (02:25→17:08)
[2021-09-17 07:15] LABS: Glucose, Whole Blood 228 mg/dL (60-115)
[2021-09-17 07:33] LABS: Estimated Average Glucose 174 mg/dL; Hemoglobin A1c % 7.7 %
[2021-09-17 07:35] LABS: B Type Natriuretic Peptide 1411 pg/mL (<100)
[2021-09-17 07:37] LABS: Anion Gap 13 (12-20); Blood Urea Nitrogen 17 mg/dL (9-16); Carbon Dioxide 32 mmol/L (22-29); Chloride 99 mmol/L (96-108); Creatinine Clr Calc Pharmacy 82.9; Estimated Glomerular Filt Rate > 60; Glucose Random 271 mg/dL (60-115); Magnesium 1.6 mg/dL (1.6-2.6); Sodium 140 mmol/L (135-145)
[2021-09-17] MEDS: Insulin Lispro 100 UNIT/ML 3 ML VIAL SUBCUT ×3 (08:01→21:23)
[2021-09-17] MEDS: Atorvastatin Calcium 10 MG TABLET PO (08:02)
[2021-09-17] MEDS: lisinopriL 10 MG TABLET PO (08:02)
[2021-09-17] MEDS: Metoprolol Succinate ER 25 MG TAB.ER.24H PO (08:03)
[2021-09-17] MEDS: Nicotine 7 MG PATCH.TD24 TRANSDERMA (08:03)
--- NOTE | 2021-09-17 08:30 | CA_ITS ---
Transthoracic Echocardiogram Patient (Last, First, Middle): Jerry Sumner D Gender: Male Date of : 1960 Age: 60 Procedure Date: 09/17/2021 Procedure Type: Transthoracic Echocardiogram Location: [facility] – [place] Height: 180.34 cm Weight: 92.08 kg BSA: 2.12 m2 Heart Rate: bpm BP: 153 / 92 mmHg Clinical Research Administrator: Referring MD: Mignon Barroso MD Labor Delivery Rn: Mark Anthony Solorio MD Symptoms: chf Study Quality: ADEQUATE ECG Rhythm: Atrial Fibrillation Conclusions: - 1. Moderately dilated left ventricle with severe LV systolic dysfunction with LVEF of 20-25% with elevated filling pressures 2. Mildly dilated left atrium 3. Trivial aortic regurgitation 4. Moderately elevated right ventricular systolic pressure with significantly elevated right atrial pressures 5.No gross pericardial effusion Findings Left Ventricle Moderately increased left ventricular cavity size. There is normal left ventricular wall thickness. The left ventricular systolic function is severely decreased. The visually estimated ejection fraction is between 20 25%. Diastolic function is indeterminate on the basis of available data. Elevated filling pressures. Right Ventricle Moderately increased right ventricular cavity size. There is normal right ventricular systolic function. Atria The left atrium is mildly dilated. There is no evidence of interatrial shunt. The right atrium is likely dilated. Aortic Valve The aortic valve structure and function is likely normal. There is no aortic valve stenosis. There is trace (trivial) aortic valve regurgitation. Mitral Valve Normal mitral valve structure and function. There is trace mitral valve regurgitation. There is no mitral valve stenosis. There is moderate mitral annular dilatation. Pulmonic Valve The pulmonic valve is likely normal. There is mild pulmonic valve regurgitation. Tricuspid Valve Normal tricuspid valve structure. There is mild to moderate tricuspid valve regurgitation. Significantly elevated right atrial pressure. Moderate pulmonary hypertension is present. Great Vessels All visible segments of the aorta are normal in size. The pulmonary artery was not well visualized. Venous The inferior vena cava is moderately dilated and does not collapse with inspiration. Pericardium/Pleural There is no evidence of pericardial effusion. Prior Study Comparison Changes noted compared to prior study dated: 02/28/2021. LV systolic function is further reduced Measurements 2D Linear Measurements IVSd: 0.94 0.6-0.9/0.6-1.0 cm LVIDd: 6.82 3.9-5.3/4.2-5.9 cm LVIDd Index: 3.22 2.4-3.2/2.2-3.1 cm/m2 LVIDs: 5.87 2.0-3.6 cm LVPWd: 1.03 0.7-1.1 cm LA Diam: 4.70 2.7-3.8/3.0-4.0 cm LAIDs Index: 2.22 1.5-2.3 cm/m2 LV Mass: 377.38 67-162/88-224 g LV Mass Index: 178.01 43-95/49-115 g/m2 LVOT Diam: 2.50 3.0+(-)1.3 cm 2D Systolic Function EF 4C: 25.80 >55% EF 2C: 26.70 >55% EF BiP: 27.10 >55% Mitral Valve MV Pk E: 1.23 MV Decel Time: 93.00 E'Lateral: 7.72 E'Medial: 5.22 E/E' Med: 23.60 E/E' Lat: 15.90 PHT: 27.00 MVA PHT: 8.15 Decel [place]: 13.21 Aortic Valve AoV Pk Kelvin: 1.28 AoV Mn Kelvin: 0.83 AoV VTI: 0.23 AoV Pk Grad: 7.00 Aov Mn Grad: 3.00 ROSE Cont.VTI: 3.37 LVOT LVOT Pk Kelvin: 0.90 LVOT Mn Kelvin: 0.64 LVOT VTI: 0.16 LVOT Pk Grad: 3.00 LVOT Mn Grad: 2.00 LVOT Diam: 2.50 LVOT Area: 4.91 Diastolic Function MV Pk E: 1.23 E'Medial: 5.22 E/E' Med: 23.60 E' Laterial: 7.72 E/E' Lat: 15.90 Tricuspid Valve TR Pk Kelvin: 3.06 TR Pk Grad: 37.00 RA Press: 15.00 RVSP: 52.00 Great Vessels Aorta Sinus of Valsalva: 3.80 2.0-3.5 cm Ao Asc: 3.50 2.1-3.4 cm Pulmonary Valve PV Pk Kelvin: 0.86 Peak PV Grad: 3.00 Updated in Other Vendor System with Status of Final Mark Anthony Solorio MD electronically signed on 09/17/2021 12:02:12 PM with status of Final
--- NOTE | 2021-09-17 08:43 | MHC.CM.PN ---
Male 60 DX CHF. He lives with his Dtr. She is HCP on file. He is independent all functional mobility. [facility] is where he sees his PCP. He does not know the MD's name. A task has been sent to office for update. DP home no services Patient will arrange for transportation home.
[2021-09-17] MEDS: Albuterol/Iprat 2.5/0.5MG 3 ML AMPUL.NEB INHALE (11:36)
[2021-09-17 11:48] LABS: Glucose, Whole Blood 133 mg/dL (60-115)
--- NOTE | 2021-09-17 11:52 | P.CONCA_ITS ---
History of Present Illness History of Present Illness Date of Service: 09/17/21 Requesting physician: Mignon Barroso Consult reason: congestive heart failure Chief complaint: CHF EXACERBATION Narrative: I was requested to see Jerry in cardiology consultation today for CHF exacerbation. Patient 6-year-old male with admission in February with bacteremia and subsequently has cardiomyopathy. Was started on neurohormonal modulation diuretic therapy. He has had no follow-up since then. Said he was trying to get a follow-up but did not get around to do it. Stop taking his medication including lisinopril and metoprolol and Lasix. Started getting symptoms of worsening shortness of breath, orthopnea, leg edema and presented to the hospital in decompensated congestive heart failure. On further inquiry as to why he did not take his medication, he had no clear answer. Since presentation he has remained tachycardic. Still remain short of breath and volume overloaded. Has been started on IV Lasix and he says he is feeling better. Blood pressure is markedly elevated. Review of Systems Constitutional: Constitutional: Reports no additional constitutional complaints Eyes: Eyes: Reports no additional eye complaints Cardiovascular: Cardiovascular: Denies chest pain, Denies rapid heart rate, Reports leg edema, Denies lightheadedness, Denies Loss of Consciousness, Reports dyspnea, Reports dyspnea on exertion and Reports orthopnea Respiratory: Respiratory: Reports no additional respiratory complaints, Reports dyspnea and Reports dyspnea on exertion Gastrointestinal: Gastrointestinal: Reports no additional gastrointestinal complaints Genitourinary: Genitourinary: Reports no additional male genitourinary complaints Musculoskeletal: Musculoskeletal: Reports no additional musculoskeletal complaints Integumentary/Breasts: Skin/Breast: Reports system reviewed and no additional complaints, except as docu Neurologic: Reports system reviewed and no additional complaints, except as documented Psychiatric: Psychiatric: Reports no additional psychiatric complaints Endocrine: Endocrine: Reports no additional endocrine complaints Hematologic/Lymphatic: Hematologic/Lymphatic: Reports no additional hematologic/lymphatic complaints Allergic/Immunologic: Allergic/Immunologic: Reports no additional allerg ic/immunologic complaints [facility] Past Medical History Medical History Asthma Asthma Bacteremia Chronic HFrEF (heart failure with reduced ejection fraction) Elevated troponin HFrEF (heart failure with reduced ejection fraction) Hypertension New onset type 2 diabetes mellitus RVH (right ventricular hypertrophy) Smoker Streptococcus infection, group G Tobacco abuse Tobacco abuse Family History Family History Mother Breast cancer Surgical History Surgical History Hx of appendectomy Social History Social History Household Members: Children Household Members Other:: Daughter Housing: Apartment Do you presently have visiting nurse or other home services: No Alcohol intake: current Alcohol intake frequency: does not drink Alcohol type: beer Patient Tobacco Use Status: Current everyday Tobacco user Tobacco use type: Cigarette Cigarette Packs Per Day: 0.5 Cigarettes Per Day: 5 Years Smoked: 25 e-Cigarette/Vaping Use: Never Used Second Hand Smoke Exposure: Yes Substance Use Type: Crack/Cocaine service: No Current occupational status: employed Meds Allergies Allergy/AdvReac Type Severity Reaction Status Date / Time penicillin V Allergy Severe Swollen Verified 08/28/21 17:10 face Penicillins [PENICILLINS] Allergy Severe ANGIOEDEMA Verified 08/28/21 17:10 shellfish derived Allergy Severe ANAPHYLAXIS Verified 08/28/21 17:10 [SHELLFISH DERIVED] Active Medications: Current Medications Acetaminophen (Acetaminophen 325 Mg Tablet) 650 mg PO Q6H PRN PRN Reason: Pain, Mild (Pain Scale 1-3) Albuterol/Ipratropium (Albuterol/Iprat 2.5/0.5mg 3 Ml Ampul.Neb) 3 ml INHALE Q4H PRN PRN Reason: wheezing Last Admin: 09/17/21 11:36 Dose: 3 ml Documented by: Atorvastatin Calcium (Atorvastatin Calcium 10 Mg Tablet) 10 mg PO DAILY [facility] Last Admin: 09/17/21 08:02 Dose: 10 mg Documented by: Dextrose (Dextrose 50 % 25 Gm/50 Ml Syringe) 25 gm IVPUSH Q15M PRN; Protocol PRN Reason: per Hypoglycemia Standing Ord. Enoxaparin Sodium (Enoxaparin Sodium 40 Mg/0.4 Ml Syringe) 40 mg SUBCUT Q24H [facility] Last Admin: 09/16/21 14:52 Dose: Not Given Documented by: Fluticasone/Vilanterol (Fluticasone/Vilanterol 100/25 Blst.W.Dev) 1 puff INHALE RDAILY [facility] Last Admin: 09/17/21 07:35 Dose: Not Given Documented by: Furosemide (Furosemide 40 Mg/4 Ml Vial) 40 mg IVPUSH Q12H [facility]; Protocol Last Admin: 09/17/21 02:24 Dose: 40 mg Documented by: Glucose (Glucose Gel 15 Gm Gel..Gram.) 15 gm PO Q15M PRN; Protocol PRN Reason: per Hypoglycemia Standing Ord. Insulin Human Lispro (Insulin Lispro 100 Unit/Ml 3 Ml Vial) 0 unit SUBCUT QIDACHS [facility]; Protocol Last Admin: 09/17/21 08:01 Dose: 4 unit Documented by: Lisinopril (Lisinopril 10 Mg Tablet) 10 mg PO DAILY [facility]; Protocol Last Admin: 09/17/21 08:02 Dose: 10 mg Documented by: Loratadine (Loratadine 10 Mg Tablet) 10 mg PO DAILY PRN PRN Reason: Allergy Symptoms Methylprednisolone Sodium Succinate (Methylprednisolone Sod Succ 40 Mg/Ml Vial) 40 mg IVPUSH Q24H [facility] Last Admin: 09/16/21 15:08 Dose: 40 mg Documented by: Metoprolol Succinate (Metoprolol Succinate Er 25 Mg Tab.Er.24h) 25 mg PO DAILY [facility]; Protocol Last Admin: 09/17/21 08:03 Dose: 25 mg Documented by: Nicotine (Nicotine 7 Mg Patch.Td24) 7 mg TRANSDERMA DAILY [facility] Last Admin: 09/17/21 08:03 Dose: 7 mg Documented by: Nicotine Polacrilex (Nicotine Polacrilex 2 Mg Gum) 2 mg BUCCAL Q2H PRN PRN Reason: Nicotine Cravings Ondansetron HCl (Ondansetron Hcl 4 Mg/2 Ml Vial) 4 mg IVPUSH Q4H PRN PRN Reason: Nausea and Vomiting Pharmacy Consult (Consult Rx Perform Med Rec) 1 each MISCELLANE ONCE PRN PRN Reason: Consult order Sodium Chloride (0.9 % Sodium Chloride Flush 3 Ml Syringe) 3 ml IVFLUSH QSHIFT [facility] Last Admin: 09/17/21 02:25 Dose: 3 ml Documented by: Tiotropium [place] (Tiotropium [place] 18 Mcg Cap.W.Dev) 2 puff INHALE RDAILY [facility] Last Admin: 09/17/21 07:35 Dose: Not Given Documented by: Home Medications Medication Instructions Recorded Confirmed Last Taken Type cetirizine 10 mg tablet 1 tab PO DAILY PRN 02/27/21 09/16/21 Unknown History albuterol sulfate 90 mcg/actuation 1 inh INHALATION QID PRN 07/22/21 09/16/21 Unknown History aerosol inhaler tiotropium bromide 2.5 2 puff INHALATION DAILY 08/28/21 09/16/21 2 Days Ago History mcg/actuation mist for inhalation ~09/14/21 (Spiriva Respimat) atorvastatin 10 mg tablet 1 tab PO DAILY 09/16/21 09/16/21 2 Days Ago History ~09/14/21 fluticasone 250 mcg-salmeterol 50 1 puff INHALATION BID 09/16/21 09/16/21 2 Days Ago History mcg/dose blistr powdr for ~09/14/21 inhalation (Advair Diskus) ipratropium 0.5 mg-albuterol 3 mg 1 amp INHALATION Q6H PRN 09/16/21 09/16/21 Unknown History (2.5 mg base)/3 mL nebulization soln lisinopril 10 mg tablet 10 mg PO DAILY 09/16/21 09/16/21 2 Days Ago History ~09/14/21 metoprolol succinate 25 mg 25 mg PO DAILY 09/16/21 09/16/21 2 Days Ago History tablet,extended release 24 hr ~09/14/21 Physical Exam Vital Signs: Vital Signs: Last Vital Signs Temp 97.2 F 09/17/21 11:12 Pulse 115 H 09/17/21 11:36 Resp 18 09/17/21 11:36 BP 140/32 H 09/17/21 11:12 Pulse Ox 98 09/17/21 11:12 BMI result Body Mass Index 28.3 Const: General: cooperative, comfortable, no acute distress, alert, awake and in distress moderate and respiratory Orientation/consciousness: patient oriented x3 Limitations: no limitations HEENT: Head: Yes normocephalic and Yes atraumatic Neck: Neck: Yes trachea midline, Yes supple and Yes JVD Chest: Chest palpation & inspection: normal inspection of the chest Resp: Effort & Inspection: normal respiratory effort Auscultation: crackles and diminished lung sounds Cardio: Jugular venous distension: JVD Palpation: abnormal PMI displaced PMI Rate: regular rate and tachycardic Rhythm: regular rhythm Heart sounds: S1 normal heart sound present, S2 normal heart sound present, no click, Gallop heart sound present S3 gallop, no murmurs and no rubs GI: Auscultation: normal bowel sounds Skin: General skin exam: no rashes or lesions noted Neuro: General: patient oriented x3 and no focal motor deficits Extrem: General: No clubbing, No cyanosis and Yes edema Objective Labs and Meds Result diagrams: 09/16/21 10:55 09/17/21 06:09 Lab results: Laboratory Results - last 24 hr 09/16/21 09/16/21 09/16/21 13:16 14:00 17:22 Sodium Potassium Chloride Carbon Dioxide Anion Gap BUN Creatinine Estim Creat Clear Calc Estimated GFR POC Glucose 276 H Random Glucose Estimat Average Glucose Hemoglobin A1c % Calcium Magnesium Troponin I High Sens 53.6 H B-Natriuretic Peptide Urine Color YELLOW Urine Appearance CLEAR Urine pH 5.5 Ur Specific [place] >= 1.030 H Urine Protein 2+ H Urine Glucose (UA) NEG Urine Ketones NEG Urine Blood TRACE Urine Nitrite NEG Ur Leukocyte Esterase NEG Urine RBC 0 Urine WBC 0 Ur Squamous Epith Cells TRACE Urine Bacteria NONE Urine Mucus 3+ 09/16/21 09/17/21 09/17/21 21:13 06:09 06:09 Sodium 140 Potassium 4.0 Chloride 99 Carbon Dioxide 32 H Anion Gap 13 BUN 17 H Creatinine 1.10 Estim Creat Clear Calc 82.9 Estimated GFR > 60 POC Glucose 340 H Random Glucose 271 H D Estimat Average Glucose Hemoglobin A1c % Calcium 10.0 Magnesium 1.6 Troponin I High Sens B-Natriuretic Peptide 1411 H Urine Color Urine Appearance Urine pH Ur Specific [place] Urine Protein Urine Glucose (UA) Urine Ketones Urine Blood Urine Nitrite Ur Leukocyte Esterase Urine RBC Urine WBC Ur Squamous Epith Cells Urine Bacteria Urine Mucus 09/17/21 09/17/21 09/17/21 06:09 07:12 11:16 Sodium Potassium Chloride Carbon Dioxide Anion Gap BUN Creatinine Estim Creat Clear Calc Estimated GFR POC Glucose 228 H 133 H Random Glucose Estimat Average Glucose 174 Hemoglobin A1c % 7.7 Calcium Magnesium Troponin I High Sens B-Natriuretic Peptide Urine Color Urine Appearance Urine pH Ur Specific [place] Urine Protein Urine Glucose (UA) Urine Ketones Urine Blood Urine Nitrite Ur Leukocyte Esterase Urine RBC Urine WBC Ur Squamous Epith Cells Urine Bacteria Urine Mucus Imaging Radiologist's impression: Impressions Chest X-Ray 09/16/21 11:50 IMPRESSION: Mild cardiomegaly with mild pulmonary vascular congestion. Assessment and Plan (1) Acute exacerbation of CHF (congestive heart failure): Status: Acute Acute decompensated systolic heart failure due to noncompliance with his usual medications. Discussed with patient about importance of compliance with medication to avoid hospitalization improve his long-term prognosis. He said he understands. Meanwhile his LV systolic functions further worsened by echocardiogram. Clinically still appears to be fluid overloaded symptomatic. Will switch him to Lasix drip 10 mg an hour. Strict intake and output chart needs to be pursued. Continue to monitor renal function and electrolytes. Hold off on beta-jael given acute decompensated heart failure and he is not currently on metoprolol at home to avoid negative chronotropic effects. Switch lisinopril to valsartan 160 mg b.i.d.. Continues monitoring of blood pressure as planned. Aldactone 25 mg daily to be added. CHF education to be provided to the patient. Will follow with you Procedures Date of Service Date of Service: 09/17/21
[2021-09-17] MEDS: Spironolactone 25 MG TABLET PO (15:17)
[2021-09-17] MEDS: methylPREDNISolone Sod Succ 40 MG/ML VIAL IVPUSH (15:18)
[2021-09-17] MEDS: Furosemide 200 MG in 0.9 % Sodium Chloride 80 ML IVCONT (15:19)
[2021-09-17 16:16] LABS: Glucose, Whole Blood 274 mg/dL (60-115)
--- NOTE | 2021-09-17 16:34 | HO.PM.IMPN ---
Subjective Subjective Date of Service: 09/17/21 Interval History: Notes some improvement overnight; states updrafts are helping Review of Systems Denies chest pain Admits to shortness of breath relieved by nebulizer Denies nausea vomiting diarrhea Physical Exam Vital Signs: Vital Signs: Last Vital Signs Temp 98.2 F 09/17/21 16:00 Pulse 110 H 09/17/21 16:00 Resp 17 09/17/21 16:00 BP 128/78 09/17/21 16:00 Pulse Ox 95 09/17/21 16:00 BMI result Body Mass Index 28.3 Const: Other: No acute distress Resp: Other: Diminished throughout with scant bilateral basilar crackles and diffuse expiratory wheezes throughout Cardio: Other: No S4; positive S1-S2; positive S3 no murmurs rubs GI: Other: Soft nontender nondistended with normoactive bowel sounds Extrem: Other: Bilateral lower extremity edema Objective Data Active Medications Acetaminophen (Acetaminophen 325 Mg Tablet) 650 mg PO Q6H PRN PRN Reason: Pain, Mild (Pain Scale 1-3) Albuterol/Ipratropium (Albuterol/Iprat 2.5/0.5mg 3 Ml Ampul.Neb) 3 ml INHALE Q4H PRN PRN Reason: wheezing Last Admin: 09/17/21 11:36 Dose: 3 ml Documented by: RANJITH Atorvastatin Calcium (Atorvastatin Calcium 10 Mg Tablet) 10 mg PO DAILY [facility] Last Admin: 09/17/21 08:02 Dose: 10 mg Documented by: LUIS Dextrose (Dextrose 50 % 25 Gm/50 Ml Syringe) 25 gm IVPUSH Q15M PRN; Protocol PRN Reason: per Hypoglycemia Standing Ord. Enoxaparin Sodium (Enoxaparin Sodium 40 Mg/0.4 Ml Syringe) 40 mg SUBCUT Q24H [facility] Last Admin: 09/17/21 15:22 Dose: Not Given Documented by: LUIS Non-Admin Reason: Patient Refused Fluticasone/Vilanterol (Fluticasone/Vilanterol 100/25 Blst.W.Dev) 1 puff INHALE RDAILY [facility] Last Admin: 09/17/21 07:35 Dose: Not Given Documented by: RANJITH Non-Admin Reason: Med Not Available Glucose (Glucose Gel 15 Gm Gel..Gram.) 15 gm PO Q15M PRN; Protocol PRN Reason: per Hypoglycemia Standing Ord. Furosemide 200 mg/ Sodium (Chloride) 100 mls @ 5 mls/hr IVCONT .Q20H [facility] Last Admin: 09/17/21 15:19 Dose: 10 mg/hr, 5 mls/hr Documented by: LUIS Insulin Human Lispro (Insulin Lispro 100 Unit/Ml 3 Ml Vial) 0 unit SUBCUT QIDACHS [facility]; Protocol Last Admin: 09/17/21 12:58 Dose: Not Given Documented by: LUIS Non-Admin Reason: No Insulin Coverage Loratadine (Loratadine 10 Mg Tablet) 10 mg PO DAILY PRN PRN Reason: Allergy Symptoms Methylprednisolone Sodium Succinate (Methylprednisolone Sod Succ 40 Mg/Ml Vial) 40 mg IVPUSH Q24H [facility] Last Admin: 09/17/21 15:18 Dose: 40 mg Documented by: LUIS Nicotine (Nicotine 7 Mg Patch.Td24) 7 mg TRANSDERMA DAILY [facility] Last Admin: 09/17/21 08:03 Dose: 7 mg Documented by: LUIS Nicotine Polacrilex (Nicotine Polacrilex 2 Mg Gum) 2 mg BUCCAL Q2H PRN PRN Reason: Nicotine Cravings Ondansetron HCl (Ondansetron Hcl 4 Mg/2 Ml Vial) 4 mg IVPUSH Q4H PRN PRN Reason: Nausea and Vomiting Pharmacy Consult (Consult Rx Perform Med Rec) 1 each MISCELLANE ONCE PRN PRN Reason: Consult order Sodium Chloride (0.9 % Sodium Chloride Flush 3 Ml Syringe) 3 ml IVFLUSH QSHIFT [facility] Last Admin: 09/17/21 15:22 Dose: 3 ml Documented by: LUIS Spironolactone (Spironolactone 25 Mg Tablet) 25 mg PO DAILY [facility]; Protocol Last Admin: 09/17/21 15:17 Dose: 25 mg Documented by: LUIS Tiotropium [place] (Tiotropium [place] 18 Mcg Cap.W.Dev) 2 puff INHALE RDAILY [facility] Last Admin: 09/17/21 07:35 Dose: Not Given Documented by: RANJITH Non-Admin Reason: Med Not Available Valsartan (Valsartan 160 Mg Tablet) 160 mg PO BID [facility]; Protocol Labs CBC & Chem 7: 09/16/21 10:55 09/17/21 06:09 Labs: Laboratory Results - last 24 hr 09/16/21 09/16/21 09/17/21 17:22 21:13 06:09 Anion Gap 13 Estim Creat Clear Calc 82.9 Estimated GFR > 60 POC Glucose 276 H 340 H Random Glucose 271 H D Estimat Average Glucose Hemoglobin A1c % Calcium 10.0 Magnesium 1.6 B-Natriuretic Peptide 09/17/21 09/17/21 09/17/21 06:09 06:09 07:12 Anion Gap Estim Creat Clear Calc Estimated GFR POC Glucose 228 H Random Glucose Estimat Average Glucose 174 Hemoglobin A1c % 7.7 Calcium Magnesium B-Natriuretic Peptide 1411 H 09/17/21 09/17/21 11:16 16:10 Anion Gap Estim Creat Clear Calc Estimated GFR POC Glucose 133 H 274 H Random Glucose Estimat Average Glucose Hemoglobin A1c % Calcium Magnesium B-Natriuretic Peptide Assessment and Plan (1) Acute exacerbation of CHF (congestive heart failure): Status: Acute (2) Asthma: Status: Acute (3) New onset type 2 diabetes mellitus: Status: Acute Plan 60yo M with asthma, possible COPD, tobacco abuse, HTN, recently diagnosed HFrEF + DM2, presenting with exertional dyspnea, non-productive cough, and wheeze concerning for CHF and asthma/COPD exacerbations. 1. Acute decompensatedsystolic Heart Failure(LVEF 20-25%) - D/C BB; add Diovan/Aldactone -Lasix GTT @10mg/hr -follow renals/divalents 2.Asthma/COPD exacerbation - IV steroids/Nebs - continue triple controller inhaler therapy 3. DMII - A1c, correction-dose lispro Lovenox Full code Will likely require 1-2 midnights for further diuresis on IV Lasix. Also need to follow divalents and replete as indicated Quality Stroke Does the patient have a stroke diagnosis?: No VTE Prior VTE?: No VTE Risk Level:: Medical - moderate - high VTE Device Contraindication: N/A - Device Ordered VTE Drug Contraindication: N/A - Med Ordered
[2021-09-17 20:21] LABS: Glucose, Whole Blood 508 mg/dL (60-115)
[2021-09-17] MEDS: Valsartan 160 MG TABLET PO (20:34)
[2021-09-17] MEDS: Insulin Lispro 100 UNIT/ML 3 ML VIAL 10 UNIT SUBCUT (21:44)
[2021-09-17] MEDS: Throat Lozenge, Medicated LOZENGE 1 LOZENGE MUCOUS MEM (23:31)
[2021-09-18] VITALS (7 sets, daily range): BP systolic 109–154; BP diastolic 40–107; PULSE 87–100; RESP 15–20; TEMP 36.1–37.1; O2SAT 93–98
--- NOTE | 2021-09-18 04:02 | PC.NURSE ---
09/17/21 2130 poc 508 notified ordered 10 units of humalog along with 10 units per sliding scale
[2021-09-18 07:11] LABS: MANUAL DIFF FLAG NO
[2021-09-18 07:14] LABS: Basophils Percent Auto 0.3 % (0-2); Hematocrit 49.6 % (42.0-52.0); Hemoglobin 17.1 g/dl (14.0-18.0); Imm Gran Abs Auto 0.04 X10*3/uL (0.00-0.03); Imm Gran Pct Auto 0.4 % (0.0-0.4); Lymphocytes Absolute Auto 1.8 X10*3/uL (1.2-4.9); Lymphocytes Percent Auto 17.3 % (20-40); Mean Corpuscular HGB Conc 34.5 g/dl (31.0-36.0); Mean Corpuscular Hemoglobin 30.9 pg (27.0-33.0); Mean Corpuscular Volume 89.5 fL (80.0-98.0); Monocytes Absolute Auto 0.7 X10*3/uL (0.1-1.2); Monocytes Percent Auto 6.3 % (2-11); Neutrophils Absolute Auto 7.8 x10*3/uL (2.0-8.3); Neutrophils Percent Auto 75.7 % (45-73); Platelet Count 242 X10*3/uL (160-400); Red Blood Count 5.54 X10*6/uL (4.60-5.80); Red Cell Distribution Width 13.9 % (11.0-16.0); White Blood Count 10.3 X10*3/uL (4.8-10.8)
[2021-09-18 07:40] LABS: B Type Natriuretic Peptide 1110 pg/mL (<100)
[2021-09-18 07:43] LABS: Alanine Aminotransferase 24 U/L (0-40); Alkaline Phosphatase 69 U/L (39-117); Anion Gap 15 (12-20); Aspartate Amino Transferase 20 U/L (5-37); Blood Urea Nitrogen 20 mg/dL (9-16); Calcium 10.4 mg/dL (8.4-10.2); Carbon Dioxide 37 mmol/L (22-29); Chloride 93 mmol/L (96-108); Creatinine Clr Calc Pharmacy 90.3; Estimated Glomerular Filt Rate > 60; Glucose Fasting 147 mg/dL (60-99); Magnesium 1.6 mg/dL (1.6-2.6); Potassium 3.6 mmol/L (3.3-5.1); Sodium 141 mmol/L (135-145); Total Protein 7.2 g/dL (6.5-8.0)
[2021-09-18 07:58] LABS: Glucose, Whole Blood 154 mg/dL (60-115)
[2021-09-18] MEDS: Fluticasone/Vilanterol 100/25 BLST.W.DEV 1 PUFF INHALE (07:58)
[2021-09-18] MEDS: Atorvastatin Calcium 10 MG TABLET PO (09:10)
[2021-09-18] MEDS: Spironolactone 25 MG TABLET PO (09:10)
[2021-09-18] MEDS: Insulin Lispro 100 UNIT/ML 3 ML VIAL SUBCUT ×3 (09:10→20:40)
[2021-09-18] MEDS: Nicotine 7 MG PATCH.TD24 TRANSDERMA (09:10)
[2021-09-18] MEDS: Potassium Chloride Packet 20 MEQ PACKET 40 MEQ PO ×2 (09:10→20:37)
[2021-09-18] MEDS: Furosemide 200 MG in 0.9 % Sodium Chloride 80 ML IVCONT (09:11)
[2021-09-18] MEDS: Valsartan 160 MG TABLET PO ×2 (09:13→20:37)
--- NOTE | 2021-09-18 11:37 | P.PNCA_ITS ---
Subjective Subjective Date of Service: 09/18/21 <ARTI Singleton - Last Filed: 09/18/21 11:53> 09/18/21 <Mark Anthony Solorio MD - Last Filed: 09/18/21 12:23> Principal diagnosis: Decompensated HF, CMP <ARTI Singleton - Last Filed: 09/18/21 11:53> Interval history: cardiology follow up for the above. Seen at 0930. Today he reports feeling much better than admit. Breathing is comfortable. No chest pains, palpitation, dizziness. Leg edema improved. Steady on feet when going to bathroom. Slept well. <ARTI Singleton - Last Filed: 09/18/21 11:53> Review of Systems Review of Systems as above <ARTI Singleton - Last Filed: 09/18/21 11:53> Yes all other systems are reviewed and are negative <ARTI Singleton - Last Filed: 09/18/21 11:53> Physical Exam Vital Signs: Last Vital Signs Temp 97.6 F 09/18/21 07:44 Pulse 87 09/18/21 08:02 Resp 18 09/18/21 08:02 BP 152/64 H 09/18/21 07:44 Pulse Ox 98 09/18/21 07:44 BMI result Body Mass Index 28.3 <ARTI Singleton - Last Filed: 09/18/21 11:53> Const General: cooperative, healthy appearing, no acute distress, alert and awake <ARTI Singleton - Last Filed: 09/18/21 11:53> Orientation/consciousness: patient oriented x3 <ARTI Singleton - Last Filed: 09/18/21 11:53> Neck Neck: Yes normal visual inspection and Yes JVD <ARTI Singleton Last Filed: 09/18/21 11:53> Resp Effort & Inspection: normal respiratory effort, able to speak in complete sentences and not labored <ARTI Singleton - Last Filed: 09/18/21 11:53> Auscultation: clear to auscultation bilaterally, no crackles, no rales, no rhonchi and no wheezes <TRACEY SingletonC - Last Filed: 09/18/21 11:53> Cardio Jugular venous distension: JVD present <ARTI Singleton - Last Filed: 09/18/21 11:53> Rate: regular rate <ARTI Singleton - Last Filed: 09/18/21 11:53> Rhythm: regular rhythm <ARTI Singleton - Last Filed: 09/18/21 11:53> Heart sounds: S1 normal heart sound present and S2 normal heart sound present <TRACEY SingletonC - Last Filed: 09/18/21 11:53> Peripheral pulses: Peripheral pulses 2+ throughout <TRACEY Singleton - Last Filed: 09/18/21 11:53> GI Inspection: Yes normal to inspection <TRACEY Singleton - Last Filed: 09/18/21 11:53> Neuro General: patient oriented x3 <TRACEY SingletonC - Last Filed: 09/18/21 11:53> Extrem Other: +1 pitting edema in lower legs bilaterally <TRACEY SingletonC - Last Filed: 09/18/21 11:53> Objective Labs and Meds Result diagrams: : 09/18/21 06:31 09/18/21 06:31 <TRACEY Singleton - Last Filed: 09/18/21 11:53> Lab results: Laboratory Results - last 24 hr 09/17/21 09/17/21 09/17/21 11:16 16:10 20:16 WBC RBC Hgb Hct MCV MCH MCHC RDW Plt Count MPV Immature Gran % (Auto) Neut % (Auto) Lymph % (Auto) O'Brien % (Auto) Eos % (Auto) Baso % (Auto) Lymph # (Auto) O'Brien # (Auto) Eos # (Auto) Baso # (Auto) Abs Immat Gran (auto) Absolute Neuts (auto) Absolute Nucleated RBC Nucleated RBC % (auto) Sodium Potassium Chloride Carbon Dioxide Anion Gap BUN Creatinine Estim Creat Clear Calc Estimated GFR POC Glucose 133 H 274 H 508 H* Fasting Glucose Calcium Magnesium Total Bilirubin AST ALT Alkaline Phosphatase B-Natriuretic Peptide Total Protein Albumin 04/07/22 04/07/22 04/07/22 06:31 06:31 06:31 WBC 10.3 RBC 5.54 Hgb 17.1 Hct 49.6 MCV 89.5 MCH 30.9 MCHC 34.5 RDW 13.9 Plt Count 242 D MPV 10.0 Immature Gran % (Auto) 0.4 Neut % (Auto) 75.7 H Lymph % (Auto) 17.3 L O'Brien % (Auto) 6.3 Eos % (Auto) 0.0 Baso % (Auto) 0.3 Lymph # (Auto) 1.8 O'Brien # (Auto) 0.7 Eos # (Auto) 0.0 Baso # (Auto) 0.0 Abs Immat Gran (auto) 0.04 H Absolute Neuts (auto) 7.8 Absolute Nucleated RBC 0.000 Nucleated RBC % (auto) 0.0 Sodium 141 Potassium 3.6 Chloride 93 L Carbon Dioxide 37 H Anion Gap 15 BUN 20 H Creatinine 1.01 Estim Creat Clear Calc 90.3 Estimated GFR > 60 POC Glucose Fasting Glucose 147 H Calcium 10.4 H Magnesium 1.6 Total Bilirubin 1.0 AST 20 ALT 24 Alkaline Phosphatase 69 B-Natriuretic Peptide 1110 H Total Protein 7.2 Albumin 4.0 09/18/21 07:49 WBC RBC Hgb Hct MCV MCH MCHC RDW Plt Count MPV Immature Gran % (Auto) Neut % (Auto) Lymph % (Auto) O'Brien % (Auto) Eos % (Auto) Baso % (Auto) Lymph # (Auto) O'Brien # (Auto) Eos # (Auto) Baso # (Auto) Abs Immat Gran (auto) Absolute Neuts (auto) Absolute Nucleated RBC Nucleated RBC % (auto) Sodium Potassium Chloride Carbon Dioxide Anion Gap BUN Creatinine Estim Creat Clear Calc Estimated GFR POC Glucose 154 H Fasting Glucose Calcium Magnesium Total Bilirubin AST ALT Alkaline Phosphatase B-Natriuretic Peptide Total Protein Albumin <ARTI Singleton - Last Filed: 09/18/21 11:53> Progress Note: A&P Assessment and plan (1) Acute exacerbation of CHF (congestive heart failure): Status: Acute <ARTI Singleton - Last Filed: 09/18/21 11:53> Assessment and Plan: Admit with sob, edema. Known CMP with echo 02/2021 showing EF 30-35%. He was put on appropriate neurohormonal modulation medications and diuretic at that time and did stop taking all meds as outpt and did not present for followup. He came to ED on 09/16 with symptoms and findings of decompensated acute on chronic systolic HF. Echo 09/17/21 shows EF 20-25%, mod increase in RVSP. He is being diuresed with IV Lasix drip, Started on Valsartan and Aldactone. Fluid balance neg 640cc since admit. Unclear if he has been measuring all outpts as he does use BR. Pt reports feeling much better since admit with improved breathing and leg edema. On exam he continues to have JVD and mild lower leg swelling, his lungs are clear. Cr 10.1, k 3.6. BNP 1110 today, was 1411 yesterday. Continue to diurese with IV Lasix drip at 10mg hr. Strict I+O monitoring. Close monitoring of electrolyte and kidney function with electrolyte replacement as warranted. We will follow. <Jessica Tran, TRAIL MAINTENANCE WORKER-C - Last Filed: 09/18/21 11:53> Admit with sob, edema. Known CMP with echo 02/2021 showing EF 30-35%. He was put on appropriate neurohormonal modulation medications and diuretic at that time and did stop taking all meds as outpt and did not present for followup. He came to ED on 09/16 with symptoms and findings of decompensated acute on chronic systolic HF. Echo 09/17/21 shows EF 20-25%, mod increase in RVSP. He is being diuresed with IV Lasix drip, Started on Valsartan and Aldactone. Fluid balance neg 640cc since admit. Unclear if he has been measuring all outpts as he does use BR. Pt reports feeling much better since admit with improved breathing and leg edema. On exam he continues to have JVD and mild lower leg swelling, his lungs are clear. Cr 10.1, k 3.6. BNP 1110 today, was 1411 yesterday. Continue to diurese with IV Lasix drip at 10mg hr. Strict I+O monitoring. Close monitoring of electrolyte and kidney function with electrolyte replacement as warranted. We will follow. Patient seen and examined. Case discussed with Jessica Tran. Continue IV diuresis with Lasix for 1 more day. Strict intake and output chart needs to be pursued. Continue to monitor renal function and electrolytes and replace electrolytes as needed. Maximize Aldactone to 50 mg daily. Continue valsartan. Eventually switch him to Entresto therapy as outpatient. Start Coreg 3.125 mg b.i.d. in the evening. If feels better will probably consider discharging him tomorrow. He has pressing social issues that he needs to address. Ischemic workup as outpatient. Importance of compliance with medications and follow-up was discussed. <Mark Anthony Solorio MD - Last Filed: 09/18/21 12:23> (2) Cardiomyopathy: Status: Acute <ARTI Singleton - Last Filed: 09/18/21 11:53> Assessment and Plan: As above. Will need further evaluation and ongoing treatment as outpt. Need for compliance discussed with him. <ARTI Singleton - Last Filed: 09/18/21 11:53> (3) NSVT (nonsustained ventricular tachycardia): Status: Acute <ARTI Singleton - Last Filed: 09/18/21 11:53> Assessment and Plan: Tele monitoring yesterday showed a 10 beat run of NSVT, isolated PVCs since that time. K and Mg each low normal. He has know CMP. BB currently being held due to acute CHF. Will plan for restart of BB once medically appropriate. With his CMP he is at increased risk for NSVT/ VT. Will order Life Vest for him to use as outpt. <ARTI Singleton - Last Filed: 09/18/21 11:53> Tele monitoring yesterday showed a 10 beat run of NSVT, isolated PVCs since that time. K and Mg each low normal. He has know CMP. BB currently being held due to acute CHF. Will plan for restart of BB once medically appropriate. With his CMP he is at increased risk for NSVT/ VT. Will order Life Vest for him to use as outpt. Noted nonsustained VT. Will schedule him to get external vest defibrillator on discharge. <Mark Anthony Solorio MD - Last Filed: 09/18/21 12:23> Fall Risk Details Current Medications: Current Medications Acetaminophen (Acetaminophen 325 Mg Tablet) 650 mg PO Q6H PRN PRN Reason: Pain, Mild (Pain Scale 1-3) Albuterol/Ipratropium (Albuterol/Iprat 2.5/0.5mg 3 Ml Ampul.Neb) 3 ml INHALE Q4H PRN PRN Reason: wheezing Last Admin: 09/17/21 11:36 Dose: 3 ml Documented by: Atorvastatin Calcium (Atorvastatin Calcium 10 Mg Tablet) 10 mg PO DAILY [facility] Last Admin: 09/18/21 09:10 Dose: 10 mg Documented by: Benzocaine (Throat Lozenge, Medicated Lozenge) 1 lozenge MUCOUS MEM Q2H PRN PRN Reason: Sore Throat Last Admin: 09/17/21 23:31 Dose: 1 lozenge Documented by: Dextrose (Dextrose 50 % 25 Gm/50 Ml Syringe) 25 gm IVPUSH Q15M PRN; Protocol PRN Reason: per Hypoglycemia Standing Ord. Enoxaparin Sodium (Enoxaparin Sodium 40 Mg/0.4 Ml Syringe) 40 mg SUBCUT Q24H [facility] Last Admin: 09/17/21 15:22 Dose: Not Given Documented by: Fluticasone/Vilanterol (Fluticasone/Vilanterol 100/25 Blst.W.Dev) 1 puff INHALE RDAILY [facility] Last Admin: 09/18/21 07:58 Dose: 1 puff Documented by: Glucose (Glucose Gel 15 Gm Gel..Gram.) 15 gm PO Q15M PRN; Protocol PRN Reason: per Hypoglycemia Standing Ord. Furosemide 200 mg/ Sodium (Chloride) 100 mls @ 5 mls/hr IVCONT .Q20H [facility] Last Admin: 09/18/21 09:11 Dose: 10 mg/hr, 5 mls/hr Documented by: Insulin Human Lispro (Insulin Lispro 100 Unit/Ml 3 Ml Vial) 0 unit SUBCUT QIDACHS [facility]; Protocol Last Admin: 09/18/21 09:10 Dose: 2 unit Documented by: Loratadine (Loratadine 10 Mg Tablet) 10 mg PO DAILY PRN PRN Reason: Allergy Symptoms Methylprednisolone Sodium Succinate (Methylprednisolone Sod Succ 40 Mg/Ml Vial) 40 mg IVPUSH Q24H [facility] Last Admin: 09/17/21 15:18 Dose: 40 mg Documented by: Nicotine (Nicotine 7 Mg Patch.Td24) 7 mg TRANSDERMA DAILY [facility] Last Admin: 09/18/21 09:10 Dose: 7 mg Documented by: Nicotine Polacrilex (Nicotine Polacrilex 2 Mg Gum) 2 mg BUCCAL Q2H PRN PRN Reason: Nicotine Cravings Ondansetron HCl (Ondansetron Hcl 4 Mg/2 Ml Vial) 4 mg IVPUSH Q4H PRN PRN Reason: Nausea and Vomiting Pharmacy Consult (Consult Rx Perform Med Rec) 1 each MISCELLANE ONCE PRN PRN Reason: Consult order Potassium Chloride (Potassium Chloride Packet 20 Meq Packet) 40 meq PO BID [facility] Stop: 09/18/21 21:01 Last Admin: 09/18/21 09:10 Dose: 40 meq Documented by: Sodium Chloride (0.9 % Sodium Chloride Flush 3 Ml Syringe) 3 ml IVFLUSH QSHIFT [facility] Last Admin: 09/18/21 09:11 Dose: Not Given Documented by: Spironolactone (Spironolactone 25 Mg Tablet) 25 mg PO DAILY [facility]; Protocol Last Admin: 09/18/21 09:10 Dose: 25 mg Documented by: Tiotropium Raymond (Tiotropium Raymond 18 Mcg Cap.W.Dev) 2 puff INHALE RDAILY [facility] Last Admin: 09/18/21 07:58 Dose: 2 puff Documented by: Valsartan (Valsartan 160 Mg Tablet) 160 mg PO BID [facility]; Protocol Last Admin: 09/18/21 09:13 Dose: 160 mg Documented by: <ARTI Singleton - Last Filed: 09/18/21 11:53> Time Spent With Patient Time: Total time spent is greater than 50% in coordination of care (as documented) at patient's floor/unit and/or counseling patient: <ARTI Singleton - Last Filed: 09/18/21 11:53> Progress Note: Quality Stroke Does the patient have a stroke diagnosis?: No <ARTI Singleton - Last Filed: 09/18/21 11:53> Procedures Date of Service Date of Service: 09/18/21 <ARTI Singleton - Last Filed: 09/18/21 11:53>
[2021-09-18 12:21] LABS: Glucose, Whole Blood 307 mg/dL (60-115)
[2021-09-18] MEDS: methylPREDNISolone Sod Succ 40 MG/ML VIAL IVPUSH (14:08)
--- NOTE | 2021-09-18 14:40 | ECG_ITS ---
Test Reason : rhythm change Blood Pressure : / mmHG Vent. Rate : 096 BPM Atrial Rate : 096 BPM P-R Int : 162 ms QRS Dur : 112 ms QT Int : 392 ms P-R-T Axes : 047 -77 -38 degrees QTc Int : 495 ms Normal sinus rhythm Possible Left atrial enlargement Incomplete right bundle branch block Left anterior fascicular block Minimal voltage criteria for LVH, may be normal variant ( Donny product ) T wave abnormality, consider lateral ischemia Prolonged QT Abnormal ECG When compared with ECG of 16-SEP-2021 10:38, Incomplete right bundle branch block is now Present Inverted T waves have replaced nonspecific T wave abnormality in Inferior leads Referred By: Jerry Lujan Electronically Signed By:LAURYN CHRISTIE MD
--- NOTE | 2021-09-18 15:34 | HO.PM.IMPN ---
Subjective Subjective Date of Service: 09/18/21 Interval History: Notes some improvement overnight; states updrafts are helping Review of Systems Denies chest pain Admits to shortness of breath relieved by nebulizer Denies nausea vomiting diarrhea Physical Exam Vital Signs: Vital Signs: Last Vital Signs Temp 97.6 F 09/18/21 11:35 Pulse 99 09/18/21 11:35 Resp 18 09/18/21 11:35 BP 132/40 L 09/18/21 11:35 Pulse Ox 97 09/18/21 11:35 BMI result Body Mass Index 28.3 Const: Other: No acute distress Resp: Other: Diminished throughout with scant bilateral basilar crackles and diffuse expiratory wheezes throughout Cardio: Other: No S4; positive S1-S2; positive S3 no murmurs rubs GI: Other: Soft nontender nondistended with normoactive bowel sounds Extrem: Other: Bilateral lower extremity edema Objective Data Active Medications Acetaminophen (Acetaminophen 325 Mg Tablet) 650 mg PO Q6H PRN PRN Reason: Pain, Mild (Pain Scale 1-3) Albuterol/Ipratropium (Albuterol/Iprat 2.5/0.5mg 3 Ml Ampul.Neb) 3 ml INHALE Q4H PRN PRN Reason: wheezing Last Admin: 09/17/21 11:36 Dose: 3 ml Documented by: RANJITH Atorvastatin Calcium (Atorvastatin Calcium 10 Mg Tablet) 10 mg PO DAILY [facility] Last Admin: 09/18/21 09:10 Dose: 10 mg Documented by: YADY Benzocaine (Throat Lozenge, Medicated Lozenge) 1 lozenge MUCOUS MEM Q2H PRN PRN Reason: Sore Throat Last Admin: 09/17/21 23:31 Dose: 1 lozenge Documented by: RAHEL Dextrose (Dextrose 50 % 25 Gm/50 Ml Syringe) 25 gm IVPUSH Q15M PRN; Protocol PRN Reason: per Hypoglycemia Standing Ord. Enoxaparin Sodium (Enoxaparin Sodium 40 Mg/0.4 Ml Syringe) 40 mg SUBCUT Q24H [facility] Last Admin: 09/18/21 14:09 Dose: Not Given Documented by: YADY Non-Admin Reason: patient educated on medication and still refu Fluticasone/Vilanterol (Fluticasone/Vilanterol 100/25 Blst.W.Dev) 1 puff INHALE RDAILY [facility] Last Admin: 09/18/21 07:58 Dose: 1 puff Documented by: LYLY Glucose (Glucose Gel 15 Gm Gel..Gram.) 15 gm PO Q15M PRN; Protocol PRN Reason: per Hypoglycemia Standing Ord. Furosemide 200 mg/ Sodium (Chloride) 100 mls @ 5 mls/hr IVCONT .Q20H [facility] Last Admin: 09/18/21 09:11 Dose: 10 mg/hr, 5 mls/hr Documented by: YADY Insulin Human Lispro (Insulin Lispro 100 Unit/Ml 3 Ml Vial) 0 unit SUBCUT QIDACHS [facility]; Protocol Last Admin: 09/18/21 12:29 Dose: 8 unit Documented by: DONALD Loratadine (Loratadine 10 Mg Tablet) 10 mg PO DAILY PRN PRN Reason: Allergy Symptoms Methylprednisolone Sodium Succinate (Methylprednisolone Sod Succ 40 Mg/Ml Vial) 40 mg IVPUSH Q24H [facility] Last Admin: 09/18/21 14:08 Dose: 40 mg Documented by: YADY Nicotine (Nicotine 7 Mg Patch.Td24) 7 mg TRANSDERMA DAILY [facility] Last Admin: 09/18/21 09:10 Dose: 7 mg Documented by: YADY Nicotine Polacrilex (Nicotine Polacrilex 2 Mg Gum) 2 mg BUCCAL Q2H PRN PRN Reason: Nicotine Cravings Ondansetron HCl (Ondansetron Hcl 4 Mg/2 Ml Vial) 4 mg IVPUSH Q4H PRN PRN Reason: Nausea and Vomiting Pharmacy Consult (Consult Rx Perform Med Rec) 1 each MISCELLANE ONCE PRN PRN Reason: Consult order Potassium Chloride (Potassium Chloride Packet 20 Meq Packet) 40 meq PO BID [facility] Stop: 09/18/21 21:01 Last Admin: 09/18/21 09:10 Dose: 40 meq Documented by: YADY Sodium Chloride (0.9 % Sodium Chloride Flush 3 Ml Syringe) 3 ml IVFLUSH QSHIFT [facility] Last Admin: 09/18/21 14:11 Dose: Not Given Documented by: YADY Non-Admin Reason: IV Running Spironolactone (Spironolactone 25 Mg Tablet) 25 mg PO DAILY [facility]; Protocol Last Admin: 09/18/21 09:10 Dose: 25 mg Documented by: YADY Tiotropium [place] (Tiotropium [place] 18 Mcg Cap.W.Dev) 2 puff INHALE RDAILY [facility] Last Admin: 09/18/21 07:58 Dose: 2 puff Documented by: LYLY Valsartan (Valsartan 160 Mg Tablet) 160 mg PO BID [facility]; Protocol Last Admin: 09/18/21 09:13 Dose: 160 mg Documented by: YADY Labs CBC & Chem 7: 09/18/21 06:31 09/18/21 06:31 Labs: Laboratory Results - last 24 hr 09/17/21 09/17/21 09/18/21 16:10 20:16 06:31 MCV 89.5 MCH 30.9 MCHC 34.5 RDW 13.9 Plt Count 242 D MPV 10.0 Immature Gran % (Auto) 0.4 Neut % (Auto) 75.7 H Lymph % (Auto) 17.3 L Love % (Auto) 6.3 Eos % (Auto) 0.0 Baso % (Auto) 0.3 Lymph # (Auto) 1.8 Love # (Auto) 0.7 Eos # (Auto) 0.0 Baso # (Auto) 0.0 Abs Immat Gran (auto) 0.04 H Absolute Neuts (auto) 7.8 Absolute Nucleated RBC 0.000 Nucleated RBC % (auto) 0.0 Anion Gap Estim Creat Clear Calc Estimated GFR POC Glucose 274 H 508 H* Fasting Glucose Calcium Magnesium Total Bilirubin AST ALT Alkaline Phosphatase B-Natriuretic Peptide Total Protein Albumin 09/18/21 09/18/21 09/18/21 06:31 06:31 07:49 MCV MCH MCHC RDW Plt Count MPV Immature Gran % (Auto) Neut % (Auto) Lymph % (Auto) Love % (Auto) Eos % (Auto) Baso % (Auto) Lymph # (Auto) Love # (Auto) Eos # (Auto) Baso # (Auto) Abs Immat Gran (auto) Absolute Neuts (auto) Absolute Nucleated RBC Nucleated RBC % (auto) Anion Gap 15 Estim Creat Clear Calc 90.3 Estimated GFR > 60 POC Glucose 154 H Fasting Glucose 147 H Calcium 10.4 H Magnesium 1.6 Total Bilirubin 1.0 AST 20 ALT 24 Alkaline Phosphatase 69 B-Natriuretic Peptide 1110 H Total Protein 7.2 Albumin 4.0 04/07/22 12:17 MCV MCH MCHC RDW Plt Count MPV Immature Gran % (Auto) Neut % (Auto) Lymph % (Auto) Love % (Auto) Eos % (Auto) Baso % (Auto) Lymph # (Auto) Love # (Auto) Eos # (Auto) Baso # (Auto) Abs Immat Gran (auto) Absolute Neuts (auto) Absolute Nucleated RBC Nucleated RBC % (auto) Anion Gap Estim Creat Clear Calc Estimated GFR POC Glucose 307 H Fasting Glucose Calcium Magnesium Total Bilirubin AST ALT Alkaline Phosphatase B-Natriuretic Peptide Total Protein Albumin Assessment and Plan (1) Acute decompensated heart failure: Status: Acute (2) New onset type 2 diabetes mellitus: Status: Acute (3) NSVT (nonsustained ventricular tachycardia): Status: Acute Plan 60yo M with asthma, possible COPD, tobacco abuse, HTN, recently diagnosed HFrEF + DM2, presenting with exertional dyspnea, non-productive cough, and wheeze concerning for CHF and asthma/COPD exacerbations. 1. Acute decompensatedsystolic Heart Failure(LVEF 20-25%) -Add Coreg 3.125 BID/Increase Aldactone to 50mg daily -Lasix GTT @10mg/hr -follow renals/divalents 2.NSVT -external vest defibrilator 3.Asthma/COPD exacerbation - IV steroids/Nebs - continue triple controller inhaler therapy 4. DMII - A1c, correction-dose lispro Lovenox Full code Will likely require 1-2 midnights for further diuresis on IV Lasix. Also need to follow divalents and replete as indicated Quality Stroke Does the patient have a stroke diagnosis?: No VTE Prior VTE?: No VTE Risk Level:: Medical - moderate - high VTE Device Contraindication: N/A - Device Ordered VTE Drug Contraindication: N/A - Med Ordered
[2021-09-18 16:13] LABS: Glucose, Whole Blood 144 mg/dL (60-115)
[2021-09-18] MEDS: Spironolactone 25 MG TABLET 50 MG PO (16:16)
[2021-09-18 19:38] LABS: Glucose, Whole Blood 373 mg/dL (60-115)
[2021-09-18 20:32] LABS: Glucose, Whole Blood 381 mg/dL (60-115)
[2021-09-18] MEDS: carvediloL 3.125 MG TABLET PO (20:37)
[2021-09-18] MEDS: 0.9 % Sodium Chloride Flush 3 ML SYRINGE IVFLUSH (20:42)
--- NOTE | 2021-09-19 | ECG_ITS ---
Test Reason : st changes Blood Pressure : / mmHG Vent. Rate : 091 BPM Atrial Rate : 091 BPM P-R Int : 172 ms QRS Dur : 122 ms QT Int : 404 ms P-R-T Axes : 057 -79 -61 degrees QTc Int : 496 ms Normal sinus rhythm Possible Left atrial enlargement Left anterior fascicular block Left ventricular hypertrophy with QRS widening ( Kenvir product , Romhilt-Boggs ) T wave abnormality, consider inferolateral ischemia Abnormal ECG When compared with ECG of 18-SEP-2021 14:47, Incomplete right bundle branch block is no longer Present Referred By: Jessica Tran Electronically Signed By:LAURYN CHRISTIE MD
[2021-09-19 04:00] VITALS: BP 123/81; PULSE 98; RESP 20; TEMP 36.8; O2SAT 94
[2021-09-19] MEDS: Furosemide 200 MG in 0.9 % Sodium Chloride 80 ML IVCONT (05:16)
[2021-09-19 07:00] LABS: MANUAL DIFF FLAG NO
[2021-09-19 07:02] LABS: Basophils Percent Auto 0.3 % (0-2); Hematocrit 54.8 % (42.0-52.0); Hemoglobin 18.7 g/dl (14.0-18.0); Imm Gran Abs Auto 0.05 X10*3/uL (0.00-0.03); Imm Gran Pct Auto 0.5 % (0.0-0.4); Lymphocytes Absolute Auto 2.1 X10*3/uL (1.2-4.9); Lymphocytes Percent Auto 20.9 % (20-40); Mean Corpuscular HGB Conc 34.1 g/dl (31.0-36.0); Mean Corpuscular Hemoglobin 30.4 pg (27.0-33.0); Mean Corpuscular Volume 89.1 fL (80.0-98.0); Mean Platelet Volume 9.8 fL (9.4-12.4); Monocytes Absolute Auto 0.8 X10*3/uL (0.1-1.2); Monocytes Percent Auto 7.4 % (2-11); Neutrophils Absolute Auto 7.1 x10*3/uL (2.0-8.3); Neutrophils Percent Auto 70.9 % (45-73); Platelet Count 235 X10*3/uL (160-400); Red Blood Count 6.15 X10*6/uL (4.60-5.80); Red Cell Distribution Width 14.2 % (11.0-16.0); White Blood Count 10.1 X10*3/uL (4.8-10.8)
[2021-09-19 07:32] LABS: Alanine Aminotransferase 30 U/L (0-40); Albumin Level 3.9 g/dL (3.5-5.0); Alkaline Phosphatase 72 U/L (39-117); Anion Gap 16 (12-20); Aspartate Amino Transferase 25 U/L (5-37); Bilirubin Total 0.8 mg/dL (0.0-1.0); Blood Urea Nitrogen 31 mg/dL (9-16); Carbon Dioxide 36 mmol/L (22-29); Chloride 89 mmol/L (96-108); Estimated Glomerular Filt Rate 49; Glucose Fasting 291 mg/dL (60-99); Magnesium 1.8 mg/dL (1.6-2.6); Potassium 4.8 mmol/L (3.3-5.1); Sodium 136 mmol/L (135-145); Total Protein 7.4 g/dL (6.5-8.0)
[2021-09-19 07:38] VITALS: BP 112/80; PULSE 94; RESP 18; TEMP 36.4; O2SAT 94
[2021-09-19 07:50] LABS: Glucose, Whole Blood 331 mg/dL (60-115)
[2021-09-19] MEDS: 0.9 % Sodium Chloride Flush 3 ML SYRINGE IVFLUSH (08:01)
[2021-09-19] MEDS: Nicotine 7 MG PATCH.TD24 TRANSDERMA (08:01)
[2021-09-19] MEDS: Spironolactone 25 MG TABLET 50 MG PO (08:01)
[2021-09-19] MEDS: carvediloL 3.125 MG TABLET PO (08:01)
[2021-09-19] MEDS: Insulin Lispro 100 UNIT/ML 3 ML VIAL SUBCUT ×2 (08:01→11:48)
[2021-09-19] MEDS: Atorvastatin Calcium 10 MG TABLET PO (08:01)
[2021-09-19] MEDS: Fluticasone/Vilanterol 100/25 BLST.W.DEV 1 PUFF INHALE (08:12)
[2021-09-19 08:16] VITALS: PULSE 94; RESP 18; O2SAT 94
[2021-09-19 08:26] LABS: B Type Natriuretic Peptide 447 pg/mL (<100)
--- NOTE | 2021-09-19 09:31 | PM.PNCARD ---
Subjective Subjective Date of Service: 09/19/21 <ARTI Singleton - Last Filed: 09/19/21 09:51> 09/19/21 <Mark Anthony Solorio MD - Last Filed: 09/19/21 11:26> Principal diagnosis: Decompensated HF, CMP, NSVT <ARTI Singleton - Last Filed: 09/19/21 09:51> Interval history: Cardiology follow up for the above. Seen at 0830. Today he reports feeling good and wants to go home. No sob, PND, orthopnea. He states edema resolved. No chest pains, palpitations, dizziness. Up to bathroom independently without issues. <ARTI Singleton Last Filed: 09/19/21 09:51> Review of Systems Review of Systems as above <ARTI Singleton - Last Filed: 09/19/21 09:51> Yes all other systems are reviewed and are negative <ARTI Singleton - Last Filed: 09/19/21 09:51> Physical Exam Vital Signs: Last Vital Signs Temp 97.5 F 09/19/21 07:38 Pulse 94 09/19/21 08:16 Resp 18 09/19/21 08:16 BP 112/80 09/19/21 07:38 Pulse Ox 94 09/19/21 07:38 BMI result Body Mass Index 28.3 <ARTI Singleton - Last Filed: 09/19/21 09:51> Const General: cooperative, healthy appearing, no acute distress, alert and awake <ARTI Singleton - Last Filed: 09/19/21 09:51> Orientation/consciousness: patient oriented x3 <ARTI Singleton - Last Filed: 09/19/21 09:51> Neck Neck: Yes normal visual inspection and Yes no JVD <ARTI Singleton Last Filed: 09/19/21 09:51> Resp Effort & Inspection: normal respiratory effort, able to speak in complete sentences and not labored <ARTI Singleton - Last Filed: 09/19/21 09:51> Auscultation: clear to auscultation bilaterally, no crackles, no rales, no rhonchi and no wheezes <Jessicaveronica Tran TRACEYC - Last Filed: 09/19/21 09:51> Cardio Rate: regular rate <JessicaTRACEY HernandezC - Last Filed: 09/19/21 09:51> Rhythm: regular rhythm <[facility] ESTHER TranC - Last Filed: 09/19/21 09:51> Heart sounds: S1 normal heart sound present and S2 normal heart sound present <Jessica Chelsea CAPTAIN'S ASSISTANTC - Last Filed: 09/19/21 09:51> GI Inspection: Yes normal to inspection <[facility] Chelsea CAPTAIN'S ASSISTANTC - Last Filed: 09/19/21 09:51> Neuro General: patient oriented x3 <Jessica Chelsea CAPTAIN'S ASSISTANT - Last Filed: 09/19/21 09:51> Extrem General: Yes normal to inspection and No edema <[facility] ChelseaESTHERC - Last Filed: 09/19/21 09:51> Objective Labs and Meds Result diagrams: : 09/19/21 06:16 09/19/21 06:16 <Jessica Tran CAPTAIN'S ASSISTANTC - Last Filed: 09/19/21 09:51> Lab results: Laboratory Results - last 24 hr 09/18/21 09/18/21 09/18/21 12:17 15:55 19:31 WBC RBC Hgb Hct MCV MCH MCHC RDW Plt Count MPV Immature Gran % (Auto) Neut % (Auto) Lymph % (Auto) Haines % (Auto) Eos % (Auto) Baso % (Auto) Lymph # (Auto) Haines # (Auto) Eos # (Auto) Baso # (Auto) Abs Immat Gran (auto) Absolute Neuts (auto) Absolute Nucleated RBC Nucleated RBC % (auto) Sodium Potassium Chloride Carbon Dioxide Anion Gap BUN Creatinine Estim Creat Clear Calc Estimated GFR POC Glucose 307 H 144 H 373 H* Fasting Glucose Calcium Magnesium Total Bilirubin AST ALT Alkaline Phosphatase B-Natriuretic Peptide Total Protein Albumin 09/18/21 09/19/21 09/19/21 20:27 06:16 06:16 WBC 10.1 RBC 6.15 H Hgb 18.7 H Hct 54.8 H MCV 89.1 MCH 30.4 MCHC 34.1 RDW 14.2 Plt Count 235 MPV 9.8 Immature Gran % (Auto) 0.5 H Neut % (Auto) 70.9 Lymph % (Auto) 20.9 Haines % (Auto) 7.4 Eos % (Auto) 0.0 Baso % (Auto) 0.3 Lymph # (Auto) 2.1 Haines # (Auto) 0.8 Eos # (Auto) 0.0 Baso # (Auto) 0.0 Abs Immat Gran (auto) 0.05 H Absolute Neuts (auto) 7.1 Absolute Nucleated RBC 0.000 Nucleated RBC % (auto) 0.0 Sodium 136 Potassium 4.8 D Chloride 89 L Carbon Dioxide 36 H Anion Gap 16 BUN 31 H D Creatinine 1.47 H Estim Creat Clear Calc 62.0 Estimated GFR 49 POC Glucose 381 H* Fasting Glucose 291 H D Calcium 10.0 Magnesium 1.8 Total Bilirubin 0.8 AST 25 ALT 30 Alkaline Phosphatase 72 B-Natriuretic Peptide Total Protein 7.4 Albumin 3.9 09/19/21 09/19/21 06:16 07:42 WBC RBC Hgb Hct MCV MCH MCHC RDW Plt Count MPV Immature Gran % (Auto) Neut % (Auto) Lymph % (Auto) Haines % (Auto) Eos % (Auto) Baso % (Auto) Lymph # (Auto) Haines # (Auto) Eos # (Auto) Baso # (Auto) Abs Immat Gran (auto) Absolute Neuts (auto) Absolute Nucleated RBC Nucleated RBC % (auto) Sodium Potassium Chloride Carbon Dioxide Anion Gap BUN Creatinine Estim Creat Clear Calc Estimated GFR POC Glucose 331 H Fasting Glucose Calcium Magnesium Total Bilirubin AST ALT Alkaline Phosphatase B-Natriuretic Peptide 447 H Total Protein Albumin <ARTI Singleton - Last Filed: 09/19/21 09:51> Progress Note: A&P Assessment and plan (1) Acute exacerbation of CHF (congestive heart failure): Status: Acute <ARTI Singleton - Last Filed: 09/19/21 09:51> Assessment and Plan: Admit with sob, edema. Known CMP with echo 02/2021 showing EF 30-35%. He was put on appropriate neurohormonal modulation medications and diuretic at that time and did stop taking all meds as outpt and did not present for followup. He came to ED on 09/16 with symptoms and findings of decompensated acute on chronic systolic HF. Echo 09/17/21 shows EF 20-25%, mod increase in RVSP. He was diuresed with IV Lasix drip, Started on Valsartan and Aldactone. Aldactone dose increased and carvedilol added by hospitalist yesterday. Fluid balance neg 1300cc since admit. Unclear if he has been measuring all outpts as he does use BR. Pt reports feeling back to normal and would like to go home. On exam, he no longer appears fluid overloaded. Cr 1.47, was 1.01 yesterday, k 4.8 today was 3.6 yesterday. BNP 447 today, was 1100 yesterday. Will Stop IV Lasix. Will start on Lasix 40mg po bid. Will reduce Aldactone back to 25mg daily. Continue carvedilol, valsartan. We are waiting for Life Vest. Then he may be discharged from a cardiology perspective. We will arrange for outpt cardiology follow up. Need for strict med compliance and follow up reviewed with him. <ARTI Singleton - Last Filed: 09/19/21 09:51> Admit with sob, edema. Known CMP with echo 02/2021 showing EF 30-35%. He was put on appropriate neurohormonal modulation medications and diuretic at that time and did stop taking all meds as outpt and did not present for followup. He came to ED on 09/16 with symptoms and findings of decompensated acute on chronic systolic HF. Echo 09/17/21 shows EF 20-25%, mod increase in RVSP. He was diuresed with IV Lasix drip, Started on Valsartan and Aldactone. Aldactone dose increased and carvedilol added by hospitalist yesterday. Fluid balance neg 1300cc since admit. Unclear if he has been measuring all outpts as he does use BR. Pt reports feeling back to normal and would like to go home. On exam, he no longer appears fluid overloaded. Cr 1.47, was 1.01 yesterday, k 4.8 today was 3.6 yesterday. BNP 447 today, was 1100 yesterday. Will Stop IV Lasix. Will start on Lasix 40mg po bid. Will reduce Aldactone back to 25mg daily. Continue carvedilol, valsartan. We are waiting for Life Vest. Then he may be discharged from a cardiology perspective. We will arrange for outpt cardiology follow up. Need for strict med compliance and follow up reviewed with him. plan: Patient seen and case discussed with Jessica Tran. Patient feeling extremely well today. Leg edema is improved. Shortness of breath is baseline. Creatinine is increased. I think patient can be discharged home after her cup with external defibrillator. Continue neurohormonal modulation with carvedilol to 3.125 mg b.i.d., Diovan and reduced Aldactone to 25 mg daily. Lasix 40 mg b.i.d.. CHF education needs to be provided. Patient appeared to be very motivated in taking care of his health. Says that he will follow-up as outpatient. <Mark Anthony Solorio MD - Last Filed: 09/19/21 11:26> (2) Cardiomyopathy: Status: Acute <ARTI Singleton - Last Filed: 09/19/21 09:51> Assessment and Plan: As above. Will need further evaluation and ongoing treatment as outpt. Ischemic eval. Need for compliance discussed with him. <ARTI Singleton - Last Filed: 09/19/21 09:51> (3) NSVT (nonsustained ventricular tachycardia): Status: Acute <ARTI Singleton - Last Filed: 09/19/21 09:51> Assessment and Plan: Tele monitoring 4/6 showed a 10 beat run of NSVT, and 4/7 showed a 5 beat NSVT. Isolated PVCs since that time. K normal, Mg low normal. He has know CMP. Started on Carvedilol yesterday. With CMP he is at increased risk for NSVT/ VT. Life Vest ordered for him to use as outpt. This was discussed with him and he is agreeable to use. <ARTI Singleton - Last Filed: 09/19/21 09:51> Tele monitoring 4/6 showed a 10 beat run of NSVT, and 4/7 showed a 5 beat NSVT. Isolated PVCs since that time. K normal, Mg low normal. He has know CMP. Started on Carvedilol yesterday. With CMP he is at increased risk for NSVT/ VT. Life Vest ordered for him to use as outpt. This was discussed with him and he is agreeable to use. Plan External [place] defibrillator to reduce risk of sudden cardiac that given his markedly reduced LV ejection fraction nonsustained VT. This was discussed with him. Company special service representative to see him and educated him regarding the same. Will sign of the case and patient can be discharged home. <Mark Anthony Solorio MD - Last Filed: 09/19/21 11:26> Fall Risk Details Current Medications: Current Medications Acetaminophen (Acetaminophen 325 Mg Tablet) 650 mg PO Q6H PRN PRN Reason: Pain, Mild (Pain Scale 1-3) Albuterol/Ipratropium (Albuterol/Iprat 2.5/0.5mg 3 Ml Ampul.Neb) 3 ml INHALE Q4H PRN PRN Reason: wheezing Last Admin: 09/17/21 11:36 Dose: 3 ml Documented by: Atorvastatin Calcium (Atorvastatin Calcium 10 Mg Tablet) 10 mg PO DAILY [facility] Last Admin: 09/19/21 08:01 Dose: 10 mg Documented by: Benzocaine (Throat Lozenge, Medicated Lozenge) 1 lozenge MUCOUS MEM Q2H PRN PRN Reason: Sore Throat Last Admin: 09/17/21 23:31 Dose: 1 lozenge Documented by: Carvedilol (Carvedilol 3.125 Mg Tablet) 3.125 mg PO BID [facility]; Protocol Last Admin: 09/19/21 08:01 Dose: 3.125 mg Documented by: Dextrose (Dextrose 50 % 25 Gm/50 Ml Syringe) 25 gm IVPUSH Q15M PRN; Protocol PRN Reason: per Hypoglycemia Standing Ord. Enoxaparin Sodium (Enoxaparin Sodium 40 Mg/0.4 Ml Syringe) 40 mg SUBCUT Q24H [facility] Last Admin: 09/18/21 14:09 Dose: Not Given Documented by: Fluticasone/Vilanterol (Fluticasone/Vilanterol 100/25 Blst.W.Dev) 1 puff INHALE RDAILY [facility] Last Admin: 09/19/21 08:12 Dose: 1 puff Documented by: Furosemide (Furosemide 40 Mg Tablet) 40 mg PO BID@0900,1800 [facility]; Protocol Glucose (Glucose Gel 15 Gm Gel..Gram.) 15 gm PO Q15M PRN; Protocol PRN Reason: per Hypoglycemia Standing Ord. Insulin Human Lispro (Insulin Lispro 100 Unit/Ml 3 Ml Vial) 0 unit SUBCUT QIDACHS [facility]; Protocol Last Admin: 09/19/21 08:01 Dose: 8 unit Documented by: Loratadine (Loratadine 10 Mg Tablet) 10 mg PO DAILY PRN PRN Reason: Allergy Symptoms Methylprednisolone Sodium Succinate (Methylprednisolone Sod Succ 40 Mg/Ml Vial) 40 mg IVPUSH Q24H [facility] Last Admin: 09/18/21 14:08 Dose: 40 mg Documented by: Nicotine (Nicotine 7 Mg Patch.Td24) 7 mg TRANSDERMA DAILY [facility] Last Admin: 09/19/21 08:01 Dose: 7 mg Documented by: Nicotine Polacrilex (Nicotine Polacrilex 2 Mg Gum) 2 mg BUCCAL Q2H PRN PRN Reason: Nicotine Cravings Ondansetron HCl (Ondansetron Hcl 4 Mg/2 Ml Vial) 4 mg IVPUSH Q4H PRN PRN Reason: Nausea and Vomiting Pharmacy Consult (Consult Rx Perform Med Rec) 1 each MISCELLANE ONCE PRN PRN Reason: Consult order Sodium Chloride (0.9 % Sodium Chloride Flush 3 Ml Syringe) 3 ml IVFLUSH QSHIFT [facility] Last Admin: 09/19/21 08:01 Dose: 3 ml Documented by: Spironolactone (Spironolactone 25 Mg Tablet) 25 mg PO DAILY [facility]; Protocol Tiotropium Hoffmeister (Tiotropium Hoffmeister 18 Mcg Cap.W.Dev) 2 puff INHALE RDAILY [facility] Last Admin: 09/19/21 08:12 Dose: 2 puff Documented by: Valsartan (Valsartan 160 Mg Tablet) 160 mg PO BID [facility]; Protocol Last Admin: 09/18/21 20:37 Dose: 160 mg Documented by: <ARTI Singleton - Last Filed: 09/19/21 09:51> Time Spent With Patient Time: Total time spent is greater than 50% in coordination of care (as documented) at patient's floor/unit and/or counseling patient: <ARTI Singleton - Last Filed: 09/19/21 09:51> Progress Note: Quality Stroke Does the patient have a stroke diagnosis?: No <ARTI Singleton - Last Filed: 09/19/21 09:51> Procedures Date of Service Date of Service: 09/19/21 <ARTI Singleton - Last Filed: 09/19/21 09:51>
[2021-09-19 11:18] VITALS: BP 108/69; PULSE 89; RESP 18; TEMP 36.7; O2SAT 92
[2021-09-19 11:40] LABS: Glucose, Whole Blood 356 mg/dL (60-115)
[2021-09-19] MEDS: Valsartan 160 MG TABLET PO (11:48)
--- NOTE | 2021-09-19 11:57 | P.DS_ITS ---
DS: Providers Provider Date of Service: 09/19/21 Date of admission: 09/16/21 13:49 Date of discharge: 09/19/21 Primary care physician: Veronique Gastelum NP Consults: 09/16/21 13:34 Consult to Cardiology Routine Consulting Provider: Mark Anthony Solorio Reason for consultation: adhf/hfref DS: Diagnosis Discharge Diagnosis (1) Acute exacerbation of CHF (congestive heart failure): Status: Acute (2) Cardiomyopathy: Status: Acute (3) NSVT (nonsustained ventricular tachycardia): Status: Acute DS: Summary Hospital Course Hospital Course: 60yo M with asthma, possible COPD, chronic HFrEF diagnosed with LVEF 30-35% on TTE during admission for group G streptococcal bacteremia in Feb 2021 with concern for TRACI due to RVH, and DM2 also diagnosed during that admission with A1c 7.4, who presents to the ED with 2 days of worsening exertional dyspnea, PND, and leg swelling.? No fever or chest pain.? He has not been adherent with his medications lately.? He is supposed to be in furosemide, lisinopril, and metoprolol succinate.? He denies fever or chills.? No nasal congestion. He presented with significant wheezing and leg edema.? BNP was 1078 and CXR showed cardiomegaly with pulmonary vascular congestion.? Initial hs-Tn-I was 61. He was 40 mg of IV furosemide, 50 mg of PO prednisone, and a Duoneb treatment. Hospital Course Admitted to telemetry and seen by Cardiology. Was diagnosed with acute decompensated systolic heart failure secondary to noncompliance. At that time he examined fluid overloaded and was started on a Lasix drip. Lisinopril was switched of all start in 1 of 60 b.i.d.. Aldactone was added. Over the course of the next several days he continued to diurese well and response to Lasix drip. It was noted during his hospitalization that he had 2 runs of nonsustained VT. On 09/17 he underwent a TTE which demonstrated LVEF of 20-25%. He continued to do well and carvedilol was added. At at cardiology's request, he will be discharged on and AICD vest. He will follow-up with cardiology as an outpatient. He will need close follow-up of his electrolytes given Lasix dosing . 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 Time Spent with Patient Time attestation: Total time spent providing and/or coordinating discharge services: Discharge coordination time: Greater than 30 minutes Quality: Safe Use of Opioids Does Pt have an Active Cancer Diagnosis on the Problem List?: No Quality: Stroke Does the patient have a stroke diagnosis?: No Physical Exam Vital Signs: Vital Signs: Last Vital Signs Temp 98.0 F 09/19/21 11:18 Pulse 89 09/19/21 11:18 Resp 18 09/19/21 11:18 BP 108/69 09/19/21 11:18 Pulse Ox 92 09/19/21 11:18 BMI result Body Mass Index 28.3 Const: Other: No acute distress Resp: Other: Clear to auscultation bilaterally no rales rhonchi or wheezes heard Cardio: Other: No S4; positive S1-S2; positive S3 no murmurs rubs GI: Other: Soft nontender nondistended with normoactive bowel sounds Extrem: Other: Bilateral lower extremity edema DS: Data Data Completed and Pending Labs on day of discharge: Laboratory Results - last 24 hr 09/18/21 09/18/21 09/18/21 12:17 15:55 19:31 WBC RBC Hgb Hct MCV MCH MCHC RDW Plt Count MPV Immature Gran % (Auto) Neut % (Auto) Lymph % (Auto) Franklin % (Auto) Eos % (Auto) Baso % (Auto) Lymph # (Auto) Franklin # (Auto) Eos # (Auto) Baso # (Auto) Abs Immat Gran (auto) Absolute Neuts (auto) Absolute Nucleated RBC Nucleated RBC % (auto) Sodium Potassium Chloride Carbon Dioxide Anion Gap BUN Creatinine Estim Creat Clear Calc Estimated GFR POC Glucose 307 H 144 H 373 H* Fasting Glucose Calcium Magnesium Total Bilirubin AST ALT Alkaline Phosphatase B-Natriuretic Peptide Total Protein Albumin 09/18/21 09/19/21 09/19/21 20:27 06:16 06:16 WBC 10.1 RBC 6.15 H Hgb 18.7 H Hct 54.8 H MCV 89.1 MCH 30.4 MCHC 34.1 RDW 14.2 Plt Count 235 MPV 9.8 Immature Gran % (Auto) 0.5 H Neut % (Auto) 70.9 Lymph % (Auto) 20.9 Franklin % (Auto) 7.4 Eos % (Auto) 0.0 Baso % (Auto) 0.3 Lymph # (Auto) 2.1 Franklin # (Auto) 0.8 Eos # (Auto) 0.0 Baso # (Auto) 0.0 Abs Immat Gran (auto) 0.05 H Absolute Neuts (auto) 7.1 Absolute Nucleated RBC 0.000 Nucleated RBC % (auto) 0.0 Sodium 136 Potassium 4.8 D Chloride 89 L Carbon Dioxide 36 H Anion Gap 16 BUN 31 H D Creatinine 1.47 H Estim Creat Clear Calc 62.0 Estimated GFR 49 POC Glucose 381 H* Fasting Glucose 291 H D Calcium 10.0 Magnesium 1.8 Total Bilirubin 0.8 AST 25 ALT 30 Alkaline Phosphatase 72 B-Natriuretic Peptide Total Protein 7.4 Albumin 3.9 09/19/21 09/19/21 09/19/21 06:16 07:42 11:20 WBC RBC Hgb Hct MCV MCH MCHC RDW Plt Count MPV Immature Gran % (Auto) Neut % (Auto) Lymph % (Auto) Franklin % (Auto) Eos % (Auto) Baso % (Auto) Lymph # (Auto) Franklin # (Auto) Eos # (Auto) Baso # (Auto) Abs Immat Gran (auto) Absolute Neuts (auto) Absolute Nucleated RBC Nucleated RBC % (auto) Sodium Potassium Chloride Carbon Dioxide Anion Gap BUN Creatinine Estim Creat Clear Calc Estimated GFR POC Glucose 331 H 356 H* Fasting Glucose Calcium Magnesium Total Bilirubin AST ALT Alkaline Phosphatase B-Natriuretic Peptide 447 H Total Protein Albumin Discharge Plan Discharge Patient Disposition: Home, Self-Care Discharge Diagnosis: Acute decompensated systolic heart failure Referrals: Jose Chambers MD [Physician] - 2 days Veronique Gastelum NP [Primary Care Provider] - 1 Week Discharge Medications: New spironolactone 25 mg Tablet 25 mg PO DAILY Qty: 30 0RF Protocol: Hold for SBP< HOLD for SBP < : 90 carvedilol 3.125 mg Tablet 3.125 mg PO BID Qty: 60 0RF Protocol: Hold for SBP/HR < HOLD for SBP < : 90 HOLD for HR < : 60 valsartan 160 mg Tablet 160 mg PO BID Qty: 60 0RF Protocol: Hold for SBP< HOLD for SBP < : 90 furosemide 40 mg Tablet 40 mg PO BID@0900,1800 Qty: 60 0RF Protocol: Hold for SBP< HOLD for SBP < : 90 Continued cetirizine 10 mg tablet 1 tab PO DAILY PRN (Reason: Allergy Symptoms) 0RF fluticasone propion-salmeterol [Advair Diskus] 250-50 mcg/dose blister with device 1 puff inhalation BID 0RF ipratropium-albuterol 0.5 mg-3 mg(2.5 mg base)/3 mL solution for nebulization 1 amp inhalation Q6H PRN (Reason: wheezing) 0RF atorvastatin 10 mg tablet 1 tab PO DAILY 0RF lisinopril 10 mg tablet 10 mg PO DAILY 0RF metoprolol succinate 25 mg tablet extended release 24 hr 25 mg PO DAILY 0RF albuterol sulfate 90 mcg/actuation HFA aerosol inhaler 1 inh inhalation QID PRN (Reason: Shortness Of Breath Or Wheezing) 0RF Spiriva Respimat 2.5 mcg/actuation mist 2 puff inhalation DAILY 0RF Discharge Orders: Discharge Order (Routine); Ordered 09/19/21 Ordered By: Jerry Lujan Diet: advance to usual diet Activity on Discharge: As tolerated Stand Alone Forms: Patient Portal Discharge page, Against Medical Advice, Work/School Release Care Plan Goals: Strict compliance with medicines; wear a vest as instructed Health Concerns: Start Jardiance for blood sugars and follow-up with your PCP for follow-up lab work Plan of Treatment: New medications include Lasix 40 mg twice daily, Aldactone 25 mg daily, and valsartan 160 mg twice daily Assessment: See discharge summary Patient Instructions: Heart Failure (DC)
--- NOTE | 2021-09-19 12:19 | MHC.CM.PN ---
Patient has been medically cleared for dc to home today, self care.
== END 2021-09-19 15:20 | disposition home or self-care (01) | DRG 194 ==
LOC: HO.ED 12:50 → HO.EDOVER 13:56 → HO.IMC 18:06
PROVIDERS: Nurse Practitioner Family; Physician Assistant; Admitting Provider Family Medicine; Emergency Provider Emergency Medicine; PCP Nurse Practitioner Primary Care; Visit Provider Hospitalist
DX: I11.0 Hypertensive heart disease with heart failure (principal); J44.1 Chronic obstructive pulmonary disease with (acute) exacerbation; I42.9 Cardiomyopathy, unspecified; I47.1 Supraventricular tachycardia; F17.210 Nicotine dependence, cigarettes, uncomplicated; I50.23 Acute on chronic systolic (congestive) heart failure; E11.9 Type 2 diabetes mellitus without complications; J45.901 Unspecified asthma with (acute) exacerbation; Z71.6 Tobacco abuse counseling; Z20.822 Contact with and (suspected) exposure to COVID-19; Z91.14 Patient's other noncompliance with medication regimen; Z91.013 Allergy to seafood; Z88.0 Allergy status to penicillin; Z79.51 Long term (current) use of inhaled steroids; Z79.899 Other long term (current) drug therapy
CPT/HCPCS: 36415; 71045; 80048; 80053; 80076; 81001; 82947; 83036; 83605; 83735; 83880; 84484; 85025; 87502; 87635; 93005; 93306; 94640; 96374; 99285; 99291; J1940; J2920

== ENCOUNTER → 2021-10-22 15:30 | Outpatient (BNVA) | payer OTHER, SELFPAY | PROVIDERS: PCP Nurse Practitioner Family; Referring Provider Nurse Practitioner Family; Visit Provider Nurse Practitioner Family | DX: I50.22 Chronic systolic (congestive) heart failure (principal); I42.9 Cardiomyopathy, unspecified; I47.2 Ventricular tachycardia | CPT/HCPCS: 99212 ==

== ENCOUNTER → 2021-11-06 08:17 | Outpatient (REF) | payer OTHER, SELFPAY ==
--- NOTE | ~2021-11-06 | NM_ITS ---
Myocardial perfusion study Indication: Ventricular tachycardia to evaluate for myocardial ischemia Technique: The patient was brought in for a Lexiscan perfusion study on 11/06/2021. Patient performed low-level exercise and was injected 0.4 mg of Lexiscan intravenously. Within a minute of injection, 30 mCi of sestamibi was given intravenously. Images were obtained using the SPECT gamma camera interlaced with the gating device. Images were obtained in supine position. Resting perfusion study was performed on 11/20/2021. Patient was administered 30 mCi of sestamibi intravenously at rest. Images were then obtained in supine position. Images obtained with and without CT attenuation. Total DLP 87 mGy-cm. Images were processed with the software and compared side to side in short axis, horizontal long axis and vertical long axis views. Findings: The stress perfusion study showed non attenuated images show mildly reduced uptake in the inferoseptal, mildly to moderately reduced uptake in the inferior wall as well as moderately reduced uptake in the apex of the LV myocardium. Remainder of the LV myocardium is normally perfused. Attenuation corrected images show mildly reduced uptake in the inferior wall as well as moderately reduced uptake in the apex of the LV myocardium.. The gated study shows severely reduced LV systolic function with calculated LVEF of 25%. LV cavity is severely dilated size. The gated study shows diffusely reduced wall thickening and contraction of segments. Resting study shows non attenuated images show minimal improvement in the inferior wall of the LV myocardium as well as the inferoseptal wall. Attenuation corrected images show uptake in the inferior wall with inferoseptal wall.. Gating at rest reveals diffuse wall motion with ejection fraction at 30%. The findings are consistent with possible reversible defect of the inferior inferoseptal wall suggestive of ischemia.. NM/NM cardiolite stress test Impression: 1. Myocardial perfusion imaging study shows inferior and inferoseptal ischemia, although there is global hypokinesis 2. Gated LVEF is 25% with stress and 30% with rest 3. Transient ischemic dilatation not present but LV cavity is dilated EKG is nondiagnostic for ischemia
--- NOTE | 2021-11-06 08:22 | CA_ITS ---
Acquisition Time: 2021-11-06 08:41:28 Total Exercise Time: 00:02:00 Test Indications: CARDIOMYOPATHY Medications: SEE CHART Protocol: LEXISCAN Max HR: 112 BPM 70% of Pred: 159 BPM Max BP: 138/086 mmHG Max Work Load: 1.6 METS Pharmacological stress test with Lexiscan injection, while walking slow on treadmill, without anginal symptoms, with isolated PVCs and PACs, with normotensive response to injection, with nondiagnostic EKG for ischemia. Nuclear images pending. Test reviewed with Dr Solorio. Referred By: Jessica Tran Overread By: JESSICA TRAN
== END ==
LOC: HO.CARD 08:17
PROVIDERS: PCP Nurse Practitioner Family; Visit Provider Nurse Practitioner Family
DX: I42.9 Cardiomyopathy, unspecified (principal); I47.2 Ventricular tachycardia
CPT/HCPCS: 78452; 93017; A9500; J0280; J2785

== ENCOUNTER 2022-02-02 10:01 | Emergency (ER) | payer MEDICAID, SELFPAY ==
--- NOTE | ~2022-02-02 | XR_ITS ---
EXAMINATION: XR CHEST CLINICAL INFORMATION: SOB COMPARISON: None TECHNIQUE: 2 views of the chest were obtained. FINDINGS: The lungs are hyperinflated but clear of acute process. Heart size and pulmonary vascularity is normal. No gross bony abnormality seen. XR/XR chest 2V IMPRESSION: Unremarkable chest exam.
[2022-02-02 10:10] VITALS: BP 152/91; PULSE 94; RESP 18; TEMP 36.6; O2SAT 98; BMI 61.8
--- NOTE | 2022-02-02 10:14 | ECG_ITS ---
Test Reason : sob Blood Pressure : / mmHG Vent. Rate : 088 BPM Atrial Rate : 088 BPM P-R Int : 178 ms QRS Dur : 108 ms QT Int : 392 ms P-R-T Axes : 043 -75 -19 degrees QTc Int : 474 ms Normal sinus rhythm with sinus arrhythmia Possible Left atrial enlargement Incomplete right bundle branch block Left anterior fascicular block Minimal voltage criteria for LVH, may be normal variant ( Donny product ) T wave abnormality, consider lateral ischemia Prolonged QT Abnormal ECG When compared with ECG of 19-SEP-2021 08:49, Incomplete right bundle branch block is now Present Nonspecific T wave abnormality has replaced inverted T waves in Inferior leads Referred By: Generic ED Physician Electronically Signed By:GI OCHOA
[2022-02-02 10:33] LABS: MANUAL DIFF FLAG NO
[2022-02-02 10:35] LABS: Basophils Absolute Auto 0.1 X10*3/uL (0.0-0.2); Basophils Percent Auto 1.2 % (0-2); Eosinophils Absolute Auto 0.5 X10*3/uL (0.0-0.4); Eosinophils Percent Auto 8.7 % (0-4); Hematocrit 46.6 % (42.0-52.0); Hemoglobin 16.1 g/dl (14.0-18.0); Imm Gran Abs Auto 0.01 X10*3/uL (0.00-0.03); Imm Gran Pct Auto 0.2 % (0.0-0.4); Lymphocytes Absolute Auto 1.8 X10*3/uL (1.2-4.9); Lymphocytes Percent Auto 34.4 % (20-40); Mean Corpuscular HGB Conc 34.5 g/dl (31.0-36.0); Mean Corpuscular Hemoglobin 31.2 pg (27.0-33.0); Mean Corpuscular Volume 90.3 fL (80.0-98.0); Mean Platelet Volume 9.6 fL (9.4-12.4); Monocytes Absolute Auto 0.5 X10*3/uL (0.1-1.2); Monocytes Percent Auto 10.4 % (2-11); Neutrophils Absolute Auto 2.4 x10*3/uL (2.0-8.3); Neutrophils Percent Auto 45.1 % (45-73); Platelet Count 175 X10*3/uL (160-400); Red Blood Count 5.16 X10*6/uL (4.60-5.80); White Blood Count 5.2 X10*3/uL (4.8-10.8)
[2022-02-02 10:50] LABS: COVID-19 Test Negative (Negative); IDNOW Serial# 55D5AD1C
[2022-02-02 10:55] LABS: Anion Gap 16 (12-20); Blood Urea Nitrogen 15 mg/dL (9-16); Calcium 9.2 mg/dL (8.4-10.2); Carbon Dioxide 22 mmol/L (22-29); Chloride 106 mmol/L (96-108); Creatinine Clr Calc Pharmacy 127.5; Estimated Glomerular Filt Rate > 60; Glucose Random 204 mg/dL (60-115); Potassium 3.9 mmol/L (3.3-5.1); Sodium 140 mmol/L (135-145)
[2022-02-02 10:59] LABS: B Type Natriuretic Peptide 262 pg/mL (<100); Troponin-I High Sensitivity 39.7 ng/L (<3.5-35.0)
[2022-02-02 13:26] VITALS: BP 153/84; PULSE 85; RESP 19; O2SAT 96
--- NOTE | 2022-02-02 13:30 | PC.NURSE ---
re carlosal done, nad, states mild sob, no cp, I reviewed his bloodwork and other results and recommend he wait to be seen, states he has to be home for 1400 and is leaving now, not able to wait and sign LWT paperwork
== END 2022-02-02 13:45 | disposition left against medical advice (07) ==
PROVIDERS: Emergency Provider Emergency Medicine; PCP Nurse Practitioner Primary Care
DX: R06.00 Dyspnea, unspecified (principal); R06.02 Shortness of breath; Z20.822 Contact with and (suspected) exposure to COVID-19; E11.9 Type 2 diabetes mellitus without complications; I11.0 Hypertensive heart disease with heart failure; I50.9 Heart failure, unspecified; F17.210 Nicotine dependence, cigarettes, uncomplicated
CPT/HCPCS: 71046; 80048; 83880; 84484; 85025; 87635; 93005; 99282; 99283

== ENCOUNTER 2022-12-24 15:03 | Outpatient (AMB) | payer MEDICAID, SELFPAY ==
[2022-12-24 15:16] VITALS: BP 140/80; PULSE 83; BMI 28.6
--- NOTE | 2022-12-24 15:16 | MHC.OFFVIS ---
Intake Vital Signs 12/24/22 15:16 Height 5 ft 11 in Weight 205 lb 0.478 oz BMI 28.6 BP 140/80 H Blood Pressure Location Lt brachial Position Sitting Pulse 83 Intake Visit Reasons: OVERDUE FOLLOW UP Intake Note: overdue f/u Technical Coordinator Required: No Allergies penicillin V Allergy (Severe, Verified 12/24/22 15:25) Swollen face Penicillins [PENICILLINS] Allergy (Severe, Verified 12/24/22 15:25) ANGIOEDEMA shellfish derived [SHELLFISH DERIVED] Allergy (Severe, Verified 12/24/22 15:25) ANAPHYLAXIS Medication List - Last Reconciled 12/24/22 by ARTI Singleton albuterol sulfate 90 mcg/actuation 1 inh inhalation QID PRN aspirin 81 mg PO DAILY atorvastatin 1 tab PO DAILY cetirizine 1 tab PO DAILY PRN cholecalciferol (vitamin D3) 1,250 mcg PO QWEEK empagliflozin (Jardiance) 25 mg PO DAILY fluticasone propion-salmeterol 250-50 mcg/dose (Advair Diskus) 1 puff inhalation BID furosemide 40 mg See Protocol PO BID@0900,1800 ipratropium-albuterol 0.5 mg-3 mg(2.5 mg base)/3 mL 1 amp inhalation Q6H PRN metformin 500 mg PO BID metoprolol succinate ER 25 mg PO DAILY spironolactone 25 mg See Protocol PO DAILY valsartan 160 mg See Protocol PO BID HPI OVERDUE FOLLOW UP HPI Details Jerry is a 62-year-old male with past medical history of diabetes, hypertension, smoking, cardiomyopathy, heart failure with reduced EF, noncompliance who was admitted to [facility] 09/2021 with shortness of breath and edema.? He had not been taking his cardiac medications at home and did not present for follow-up after prior admission.? He was diuresed and neurohormonal modulation agents reinstituted.? 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 Follow-up echocardiogram showed EF 20-25%. Nuclear stress test showed inferior and inferior septal ischemia. The plan was for a diagnostic cardiac catheterization however patient did not present for follow-up. His last visit to our office was on 10/22/2021. He presents today for follow-up. Today he reports that since his last visit he has been taking his meds as directed. In the last few months he has noticed some increased shortness of breath with activity. He sleeps with 2 pillows which is his norm. No cough, no edema, weight is been stable. No dizziness, presyncope, syncope, falls. No chest discomfort at rest or with activity. He admits to being mostly sedentary. He lives on the 3rd floor and has to take breaks when climbing stairs. Drinks 2 large beers every other day and smokes 5 cigarettes daily. Has been on a work since last year and is trying to get on disability. [facility] Medical History Asthma Asthma Bacteremia Chronic HFrEF (heart failure with reduced ejection fraction) Elevated troponin HFrEF (heart failure with reduced ejection fraction) Hypertension New onset type 2 diabetes mellitus RVH (right ventricular hypertrophy) Smoker Streptococcus infection, group G Tobacco abuse Tobacco abuse Surgical History Hx of appendectomy Family History Mother Breast cancer Social History Household Members: Children Household Members Other:: Daughter Housing: Apartment Do you presently have visiting nurse or other home services: No Alcohol intake: current Alcohol intake frequency: a few times a week Alcohol type: beer and hard liquor Patient Tobacco Use Status: Current everyday Tobacco user Tobacco use type: Cigarette Cigarette Packs Per Day: 0.5 Cigarettes Per Day: 5 Years Smoked: 25 e-Cigarette/Vaping Use: Never Used Second Hand Smoke Exposure: Yes Substance Use Type: Crack/Cocaine service: No Current occupational status: employed Review of Systems Const All systems reviewed & are unremarkable except as noted in HPI and below ENT Reports dizziness Card Denies chest pain, Denies chest pain at rest, Denies chest pain with activity, Denies rapid heart rate, Denies pedal edema, Denies edema, Denies leg edema, Denies lightheadedness, Denies palpitations, Reports dyspnea, Reports dyspnea on exertion and Denies orthopnea Resp Denies cough, Reports dyspnea and Reports dyspnea on exertion GI Denies hematochezia and Denies change in stool character Musc Denies abnormal gait, Reports limited range of motion, Reports muscle cramps, Denies muscle weakness, Denies numbness, Denies radiating pain into limb, Denies stiffness and Denies tingling Neuro Denies abnormal gait, Reports dizziness, Denies numbness and Denies tingling Endo Denies palpitations Physical Exam Const General: cooperative, comfortable and no acute distress Orientation/consciousness: patient oriented x3 Neck Neck: Yes normal visual inspection Resp Effort & Inspection: normal respiratory effort Auscultation: clear to auscultation bilaterally, no crackles, no rales, no rhonchi and no wheezes Cardio Jugular venous distension: no JVD Rate: regular rate Rhythm: regular rhythm Heart sounds: S1 normal heart sound present, S2 normal heart sound present, no murmurs and no rubs GI Inspection: Yes normal to inspection Neuro General: patient oriented x3 Extrem General: Yes normal to inspection and No no pedal edema Psych Appearance: grossly normal Mental Status: mental status grossly normal Speech and movement: Normal speech and movement present Office Procedures EKG Details: today, read by me, normal sinus rhythm, left axis deviation, incomplete right bundle branch block, left anterior fascicular block, ST and T-wave abnormality V4 through V6 similar to prior EKG, can not exclude ischemia, septal Q-wave present, QTC 474 milliseconds, rate 83 [id number], Complete Assessment & Plan Assessment & Plan (1) Chronic HFrEF (heart failure with reduced ejection fraction): Code(s): I50.22 - Chronic systolic (congestive) heart failure Plan: Known history of cardiomyopathy with noncompliance. Last [facility] admission September 2021. He was restarted on all his cardiac medications at that time. An echo had shown EF 20-25% and he did have runs of an SVT during his hospital admission. He had a life vest ordered however he did not wear consistently and has since returned it. a nuclear stress test was done on 11/06/2021 showing inferior and inferior septal ischemia, EF 25% with stress and 30% with rest. Plan was to do a diagnostic cardiac catheterization however he did not present for follow-up. His last prior visit to our office was 10/22/2021. Today he presents with reports of increasing shortness of breath over the last few months. On exam he does not appear fluid overloaded. He does report med compliance as he uses the med box and his scripts have been filled by his PCP. According to his list he is on valsartan and carvedilol for neurohormonal modulation. He is on Aldactone, Jardiance, Lasix as well as aspirin and atorvastatin. He tells me he is willing to be compliant with follow-up and cardiac testing going forward. Plan for cardiac catheterization, risks and possible findings reviewed with him. He is agreeable to Proceed. Will update echocardiogram. Will check labs including CBC, CMP, PT / INR, BNP, Lipids. Plan to review lab results then determine if he can be changed to Entresto. Labs done 8 08/03/2021 showed creatinine 1.08 and prior to that labs done 09/19/2021 showed creatinine 1.47. Will continue current meds at present. Cardiology follow-up 2 weeks post cath. (2) Cardiomyopathy: Code(s): I42.9 - Cardiomyopathy, unspecified Plan: Initial finding of reduced EF, February 2021, 30-35% on echo at that time. Incidental finding without symptoms. He was started on appropriate med management and he was non compliant. EF now further reduced as above. Unknown at this time if this is ischemic versus nonischemic. stress test does show ischemic findings S. Cardiac catheterization being planned. He denies having chest discomfort but does have some shortness of breath with activity. Will update Echocardiogram and plan to call him with results (3) NSVT (nonsustained ventricular tachycardia): Code(s): I47.2 - Ventricular tachycardia Plan: Brief NSVT noted on monitor and storage bin tender during last admission September 2021. Has known EF 20-25%. He is on carvedilol. A LifeVest was set up for him and he did not wear consistently. It has since been return to the [facility]. He denies having any dizziness, presyncope, syncope, heart palpitations. Continue carvedilol. Orders: Orders CA echo transthoracic complete Today I42.9 - Cardiomyopathy, unspecified Cardiac Cath LT w PCI Today I42.9 - Cardiomyopathy, unspecified, I47.2 - Ventricular tachycardia, I50.22 - Chronic systolic (congestive) heart failure, R94.39 - Abnormal result of other cardiovascular function study B Type Natriuretic Peptide Today I42.9 - Cardiomyopathy, unspecified, R94.39 - Abnormal result of other cardiovascular function study Comprehensive Met. Panel Today I42.9 - Cardiomyopathy, unspecified, R94.39 - Abnormal result of other cardiovascular function study Prothrombin Time INR Today I42.9 - Cardiomyopathy, unspecified, R94.39 - Abnormal result of other cardiovascular function study Complete Blood Count Auto Diff Today I42.9 - Cardiomyopathy, unspecified, R94.39 - Abnormal result of other cardiovascular function study Lipid Panel Today E11.9 - Type 2 diabetes mellitus without complications, I50.20 - Unspecified systolic (congestive) heart failure Coding Level of Care Code Est Pt Level 4 (11239) Diagnoses Chronic HFrEF (heart failure with reduced ejection fraction) I50.22 Cardiomyopathy I42.9 NSVT (nonsustained ventricular tachycardia) I47.2 CPT Codes EKG - CPT: [id number], Complete ([id number]) Time Spent (min) 28 Comment chart review, documentation, interview, assessment
== END 2022-12-24 15:53 | disposition home or self-care (01) ==
PROVIDERS: Visit Provider Nurse Practitioner Family
DX: I50.22 Chronic systolic (congestive) heart failure (principal); I42.9 Cardiomyopathy, unspecified; I47.20 Ventricular tachycardia, unspecified
CPT/HCPCS: 93010; 99214

== ENCOUNTER → 2022-12-24 15:03 | Outpatient (BNVA) | payer MEDICAID, SELFPAY | PROVIDERS: Visit Provider Nurse Practitioner Family | DX: I50.22 Chronic systolic (congestive) heart failure (principal); I42.9 Cardiomyopathy, unspecified; I47.20 Ventricular tachycardia, unspecified | CPT/HCPCS: 93005; 99214 ==

== ENCOUNTER → 2023-01-22 13:35 | Outpatient (REF) | payer MEDICAID, SELFPAY ==
--- NOTE | 2023-01-22 13:38 | CA_ITS ---
Transthoracic Echocardiogram Patient (Last, First, Middle): Jerry Sumner D Gender: Male Date of : 1960 Age: 62 Procedure Date: 01/22/2023 Procedure Type: Transthoracic Echocardiogram Location: OP Height: 180.34 cm Weight: 90.72 kg BSA: 2.11 m2 Heart Rate: bpm BP: 118 / 80 mmHg Center Human Resources Manager: TO Referring MD: Jessica Tran PATTERNMAKER [employer]ENTICE [employer] Symptoms: I42.9 - Cardiomyopathy, unspecified Study Quality: Fair Conclusions: - Moderately increased left ventricular cavity size. There is normal left ventricular wall thickness. The left ventricular systolic function is moderate to severely decreased. The visually estimated ejection fraction is between 25-30%. - E/E prime ratio is >15, consistent with elevated filling pressures. - Mildly increased right ventricular cavity size. There is borderline right ventricular systolic function. - There is mild dilatation of the sinuses of Valsalva measuring 4.13 cm and mild dilatation of the ascending aorta measuring 3.80 cm. Findings Left Ventricle Moderately increased left ventricular cavity size. There is normal left ventricular wall thickness. The left ventricular systolic function is moderate to severely decreased. The visually estimated ejection fraction is between 25-30%. There is severe global hypokinesis. Abnormal diastolic function is noted. Spectral Doppler is indicative of an impaired relaxation filling pattern. E/E prime ratio is >15, consistent with elevated filling pressures. Right Ventricle Mildly increased right ventricular cavity size. There is borderline right ventricular systolic function. Aortic Valve Normal aortic valve structure and function. There is no aortic valve stenosis. There is trace (trivial) aortic valve regurgitation. Mitral Valve The mitral valve appears normal. There is no mitral valve regurgitation. There is no mitral valve stenosis. Pulmonic Valve The pulmonic valve is normal. There is trace pulmonic valve regurgitation. Tricuspid Valve Normal tricuspid valve structure. Tricuspid regurgitation envelope is inadequate for calculation of right ventricular systolic pressure. Normal right atrial pressure. Great Vessels There is mild dilatation of the sinuses of Valsalva measuring 4.13 cm and mild dilatation of the ascending aorta measuring 3.80 cm. The visualized portions of the pulmonary artery and branches are normal. Venous The inferior vena cava is normal in size and collapses greater than 50% with inspiration. Pericardium/Pleural There is no evidence of pericardial effusion. Prior Study Comparison Changes noted compared to prior study dated: 06/19/2021. RV function is borderline. LVEF 25 to 30% Measurements 2D Linear Measurements IVSd: 0.87 0.6-0.9/0.6-1.0 cm LVIDd: 6.92 3.9-5.3/4.2-5.9 cm LVIDd Index: 3.28 2.4-3.2/2.2-3.1 cm/m2 LVIDs: 6.08 2.0-3.6 cm LVPWd: 1.17 0.7-1.1 cm LA Diam: 4.10 2.7-3.8/3.0-4.0 cm LAIDs Index: 1.94 1.5-2.3 cm/m2 LV Mass: 403.72 67-162/88-224 g LV Mass Index: 191.34 43-95/49-115 g/m2 LVOT Diam: 2.20 3.0+(-)1.3 cm 2D Systolic Function EF 4C: 31.80 >55% EF 2C: 31.40 >55% EF BiP: 32.30 >55% Mitral Valve MV Pk E: 0.54 MV PK A: 0.74 MV Decel Time: 177.00 E/A: 0.70 E'Lateral: 3.48 E'Medial: 3.70 E/E' Med: 14.70 E/E' Lat: 15.60 PHT: 52.00 MVA PHT: 4.23 Decel [place]: 3.08 Aortic Valve AoV Pk Kelvin: 1.31 AoV Mn Kelvin: 0.92 AoV VTI: 0.24 AoV Pk Grad: 7.00 Aov Mn Grad: 4.00 ROSE Cont.VTI: 2.60 LVOT LVOT Pk Kelvin: 0.83 LVOT Mn Kelvin: 0.59 LVOT VTI: 0.16 LVOT Pk Grad: 3.00 LVOT Mn Grad: 2.00 LVOT Diam: 2.20 LVOT Area: 3.80 Diastolic Function MV Pk E: 0.54 MV Pk A: 0.74 E/A: 0.70 E'Medial: 3.70 E/E' Med: 14.70 E' Laterial: 3.48 E/E' Lat: 15.60 Right Ventricle TAPSE (mm): 17.50 TVS' Kelvin: 10.60 Tricuspid Valve RA Press: 3.00 Great Vessels Aorta Sinus of Valsalva: 4.13 2.0-3.5 cm Ao Asc: 3.80 2.1-3.4 cm Updated in Other Vendor System with Status of Final Jose Chambers MD electronically signed on 01/23/2023 9:30:14 PM with status of Final
== END ==
LOC: HO.CARD 13:35
PROVIDERS: PCP Nurse Practitioner Primary Care; Visit Provider Nurse Practitioner Family
DX: I42.9 Cardiomyopathy, unspecified (principal)
CPT/HCPCS: 93306

== ENCOUNTER → 2023-01-22 13:38 | Outpatient (BNV) | payer MEDICAID, SELFPAY | PROVIDERS: PCP Nurse Practitioner Primary Care; Visit Provider Internal Medicine Cardiovascular Disease | DX: I42.9 Cardiomyopathy, unspecified (principal) | CPT/HCPCS: 93306 ==

== ENCOUNTER 2023-01-28 12:46 | Outpatient (REF) | payer MEDICAID, SELFPAY ==
--- NOTE | 2023-01-28 | PFT_ITS ---
Forced vital capacity 65%, FEV1 52%, FEV1/FVC ratio is 62. YHH29-22 28% and MVV only 26%. Post bronchodilator therapy, there is a significant improvement in FVC, FEV1, and [id number]. Total lung capacity 77%. Residual volume 120%. Diffusion capacity is 60% CONCLUSION: Severe obstructive airway disorder. Partial reversibility after bronchodilator therapy indicates significant response to bronchodilator therapy. These findings are consistent with asthma/COPD overlap syndrome. Clinical correlation is recommended. MD KEZIA Luu/MODL / [id number]
== END 2023-01-28 12:47 | disposition home or self-care (01) ==
LOC: HO.RESP 12:46
PROVIDERS: PCP Nurse Practitioner Primary Care; Visit Provider Nurse Practitioner Primary Care
DX: J45.40 Moderate persistent asthma, uncomplicated (principal); J44.9 Chronic obstructive pulmonary disease, unspecified
CPT/HCPCS: 94010; 94727; 94729

== ENCOUNTER → 2023-01-28 13:20 | Outpatient (BNV) | payer MEDICAID, SELFPAY | PROVIDERS: PCP Nurse Practitioner Primary Care; Visit Provider Internal Medicine | DX: J45.909 Unspecified asthma, uncomplicated (principal) | CPT/HCPCS: 94060; 94727; 94729 ==

== ENCOUNTER 2023-03-08 12:55 | Outpatient (REF) | payer MEDICAID, SELFPAY ==
[2023-03-08 13:19] LABS: MANUAL DIFF FLAG NO
[2023-03-08 13:38] LABS: Basophils Absolute Auto 0.1 X10*3/uL (0.0-0.2); Basophils Percent Auto 0.9 % (0-2); Eosinophils Absolute Auto 0.4 X10*3/uL (0.0-0.4); Hematocrit 48.3 % (42.0-52.0); Hemoglobin 16.4 g/dl (14.0-18.0); Imm Gran Abs Auto 0.02 X10*3/uL (0.00-0.03); Imm Gran Pct Auto 0.3 % (0.0-0.4); Lymphocytes Absolute Auto 2.1 X10*3/uL (1.2-4.9); Lymphocytes Percent Auto 35.3 % (20-40); Mean Corpuscular Hemoglobin 31.2 pg (27.0-33.0); Mean Corpuscular Volume 91.8 fL (80.0-98.0); Mean Platelet Volume 9.9 fL (9.4-12.4); Monocytes Absolute Auto 0.4 X10*3/uL (0.1-1.2); Monocytes Percent Auto 7.5 % (2-11); Neutrophils Absolute Auto 2.9 x10*3/uL (2.0-8.3); Platelet Count 208 X10*3/uL (160-400); Red Blood Count 5.26 X10*6/uL (4.60-5.80); Red Cell Distribution Width 12.9 % (11.0-16.0); White Blood Count 5.9 X10*3/uL (4.8-10.8)
[2023-03-08 13:44] LABS: INTERNATIONAL NORM RATIO 0.9 (0.9-1.1)
[2023-03-08 14:13] LABS: Alanine Aminotransferase 20 U/L (0-40); Albumin Level 4.4 g/dL (3.5-5.0); Alkaline Phosphatase 65 U/L (39-117); Anion Gap 14 (12-20); Aspartate Amino Transferase 19 U/L (5-37); Bilirubin Total 0.5 mg/dL (0.0-1.0); Blood Urea Nitrogen 23 mg/dL (9-16); Calcium 10.1 mg/dL (8.4-10.2); Carbon Dioxide 29 mmol/L (22-29); Chloride 102 mmol/L (96-108); Cholesterol 281 mg/dL (<200); Estimated Glomerular Filt Rate 60; Glucose Random 168 mg/dL (60-115); HDL Cholesterol 54 mg/dL (>40); LDL Cholesterol Calculated 182 mg/dL (<100); Potassium 4.3 mmol/L (3.3-5.1); Sodium 141 mmol/L (135-145); Triglycerides 229 mg/dL (<150)
[2023-03-08 14:16] LABS: B Type Natriuretic Peptide 87 pg/mL (<100)
== END 2023-03-08 12:56 | disposition home or self-care (01) ==
LOC: HO.LAB 12:55
PROVIDERS: PCP Nurse Practitioner Primary Care; Visit Provider Nurse Practitioner Family
DX: R94.39 Abnormal result of other cardiovascular function study (principal); E11.9 Type 2 diabetes mellitus without complications; I42.9 Cardiomyopathy, unspecified; I50.20 Unspecified systolic (congestive) heart failure
CPT/HCPCS: 36415; 80053; 80061; 83880; 85025; 85610

== ENCOUNTER → 2023-03-16 23:59 | Outpatient (BNV) | payer MEDICAID, SELFPAY | PROVIDERS: PCP Nurse Practitioner Primary Care; Visit Provider Internal Medicine Cardiovascular Disease | DX: I42.9 Cardiomyopathy, unspecified (principal); R93.1 Abnormal findings on diagnostic imaging of heart and coronary circulation | CPT/HCPCS: 93458; 99152 ==

== ENCOUNTER 2023-07-08 08:21 | Outpatient (AMB) | payer MEDICAID, SELFPAY ==
[2023-07-08 08:27] VITALS: BP 134/82; PULSE 96; BMI 28.7
--- NOTE | 2023-07-08 08:27 | A.OFFVIS_ITS ---
Intake Vital Signs 07/08/23 08:27 Height 5 ft 11 in Weight 205 lb 14.588 oz BMI 28.7 BP 134/82 Pulse 96 Pulse Source Monitor Intake Visit Reasons: r/s followup post cardiac cath Neuro Intensivist Physician Required: No Allergies penicillin V Allergy (Severe, Verified 07/08/23 08:29) Swollen face Penicillins [PENICILLINS] Allergy (Severe, Verified 07/08/23 08:29) ANGIOEDEMA shellfish derived [SHELLFISH DERIVED] Allergy (Severe, Verified 07/08/23 08:29) ANAPHYLAXIS Medication List - Last Reconciled 07/08/23 by ARTI Singleton albuterol sulfate 90 mcg/actuation 1 inh inhalation QID PRN aspirin 81 mg PO DAILY atorvastatin 40 mg PO BEDTIME cetirizine 1 tab PO DAILY PRN cholecalciferol (vitamin D3) 1,250 mcg PO QWEEK diphenhydramine HCl (Benadryl) 25 mg PO BID 2 days empagliflozin (Jardiance) 25 mg PO DAILY famotidine (Pepcid) 20 mg PO BID 2 days fluticasone propion-salmeterol 250-50 mcg/dose (Advair Diskus) 1 puff inhalation BID furosemide 40 mg See Protocol PO BID@0900,1800 ipratropium-albuterol 0.5 mg-3 mg(2.5 mg base)/3 mL 1 amp inhalation Q6H PRN metformin 500 mg PO BID metoprolol succinate ER 25 mg PO DAILY prednisone 20 mg PO BID 2 days sacubitril-valsartan 49-51 mg (Entresto) 1 tab PO BID spironolactone 25 mg See Protocol PO DAILY HPI r/s followup post cardiac cath HPI Details Jerry is a 62-year-old male with past medical history of diabetes, hypertension, smoking, cardiomyopathy, heart failure with reduced EF, medication noncompliance, NSVT, prior life vest use which was stopped due to noncompliance. Last echo showed EF 25-30%. He underwent cardiac catheterization recently showing no significant CAD any now presents for follow-up. Today he reports that has not been taking his medications as he should. He was not taking them for a while but now admits to only taking his morning meds. He gives no clear reason as to why he stopped taking his medications. At this point he reports having fatigue, napping during the daytime. He has some shortness of breath with exertion. He has no chest discomfort at rest or with activity. No heart palpitations, lightheadedness, presyncope, syncope, falls. No PND, orthopnea or edema. 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 He admits to drinking a few beers daily and smoking up to 5 cigarettes daily. Right radial catheterization site is feeling good. [facility] Medical History Asthma Smoker New onset type 2 diabetes mellitus Tobacco abuse Chronic HFrEF (heart failure with reduced ejection fraction) Streptococcus infection, group G HFrEF (heart failure with reduced ejection fraction) Hypertension RVH (right ventricular hypertrophy) Tobacco abuse Elevated troponin Bacteremia Asthma Surgical History Hx of appendectomy Family History Mother Breast cancer Social History Household Members: Children Household Members Other:: Daughter Housing: Apartment Do you presently have visiting nurse or other home services: No Alcohol intake: current Alcohol intake frequency: a few times a week Alcohol type: beer and hard liquor Patient Tobacco Use Status: Current everyday Tobacco user Tobacco use type: Cigarette Cigarette Packs Per Day: 0.5 Cigarettes Per Day: 5 Years Smoked: 25 e-Cigarette/Vaping Use: Never Used Second Hand Smoke Exposure: Yes Substance Use Type: Crack/Cocaine service: No Current occupational status: employed Review of Systems Const All systems reviewed & are unremarkable except as noted in HPI and below Reports fatigue ENT Denies dizziness Card Denies chest pain, Denies chest pain at rest, Denies chest pain with activity, Denies rapid heart rate, Denies pedal edema, Denies edema, Denies leg edema, Denies lightheadedness, Denies palpitations, Reports dyspnea, Reports dyspnea on exertion and Denies orthopnea Resp Denies cough, Reports dyspnea and Reports dyspnea on exertion GI Denies hematochezia and Denies change in stool character Musc Denies abnormal gait, Denies limited range of motion, Denies muscle cramps, Denies muscle weakness, Denies numbness, Denies radiating pain into limb, Denies stiffness and Denies tingling Neuro Denies abnormal gait, Denies dizziness, Denies numbness and Denies tingling Endo Reports fatigue and Denies palpitations Physical Exam Vital Signs: Last Vital Signs Pulse 96 07/08/23 08:27 BP 134/82 07/08/23 08:27 BMI result Body Mass Index 28.7 Const General: cooperative, healthy appearing, comfortable and no acute distress Orientation/consciousness: patient oriented x3 Neck Neck: Yes normal visual inspection and Yes no JVD Resp Effort & Inspection: normal respiratory effort Auscultation: clear to auscultation bilaterally, no crackles, no rales, no rhonchi and no wheezes Cardio Jugular venous distension: no JVD Rate: regular rate Rhythm: regular rhythm Heart sounds: S1 normal heart sound present, S2 normal heart sound present, no murmurs and no rubs Neuro General: patient oriented x3 Extrem General: Yes normal to inspection, No no pedal edema and No calf tenderness Psych Appearance: grossly normal Mental Status: mental status grossly normal Speech and movement: Normal speech and movement present Office Procedures EKG Details: Today, read by me, sinus rhythm with frequent PACs, left atrial enlargement, incomplete right bundle branch block, left anterior fascicular block, septal Q- wave, no acute ST or T-wave abnormalities, rate 96 [id number], Complete Assessment & Plan Assessment & Plan (1) Chronic HFrEF (heart failure with reduced ejection fraction): Code(s): I50.22 - Chronic systolic (congestive) heart failure Plan: Known history of cardiomyopathy with noncompliance. Last [facility] [place] 2021. He was restarted on all his cardiac medications at that time. An echo had shown EF 20-25% and he did have runs of NSVT during his hospital admission. He had a life vest ordered however he did not wear consistently and has since returned it. A nuclear stress test was done on 11/06/2021 showing inferior and inferior septal ischemia, EF 25% with stress and 30% with rest. Plan was to do a diagnostic cardiac catheterization however he did not present for follow-up. A follow-up echo was done on 01/22/2023 showing EF 25-30%. He did agree to undergo cardiac catheterization which occurred on 03/24/2023 showing no significant coronary artery disease. His last prior visit to the office was on 12/24/2022. Today he reports having some shortness of breath with activity which is not new. NYHA class 2. He has no chest discomfort, lightheadedness, presyncope, syncope. He still admits to medication noncompliance and is mostly taking just the morning meds. He is drinking a few beers daily and continues to smoke. The need for strict medication compliance reviewed with him. The risk of decompensated heart failure, arrhythmia, sudden discussed. Blood pressure currently is in the normal range. EKG done today showing sinus rhythm with PACs, incomplete right bundle branch block, left anterior fascicular block, overall no significant change from prior. Will have him continue on Entresto and metoprolol XL for neurohormonal modulation. Continue Aldactone, Jardiance, aspirin and atorvastatin. Labs done on 03/08/2023 showed potassium 4.3, creatinine 1.23. Continue on current med management. Cardiology follow-up 3 months, sooner if needed (2) Cardiomyopathy: Code(s): I42.9 - Cardiomyopathy, unspecified Plan: Initial finding of reduced EF, February 2021, 30-35% on echo at that time. Incidental finding without symptoms. He was started on appropriate med management and he was non compliant. EF now further reduced as above. Recent cardiac catheterization shows he has nonischemic cardiomyopathy. He does admit to alcohol use which can be contributory. He also has hypersomnia and sleep difficulty which could indicate obstructive sleep apnea. Will order a home sleep study for further evaluation. Med management as above. No clinical signs of heart failure on examination. (3) S/P cardiac catheterization: Comment: 03/16/2023, left main normal, lad, left circumflex and RCA each with minimal luminal irregularities Code(s): Z98.890 - Other specified postprocedural states Plan: Right radial catheterization site well healed. Referred to cardiac rehab for heart failure (4) NSVT (nonsustained ventricular tachycardia): Code(s): I47.2 - Ventricular tachycardia Plan: Brief NSVT noted on floor space allocator during last admission September 2021. Has known reduced EF. He is on metoprolol XL.. A LifeVest was initially set up for him and he did not wear consistently. It has since been return to the [facility]. He denies having any dizziness, presyncope, syncope, heart palpitations. Continue metoprolol. (5) Alcohol use: Code(s): Z78.9 - Other specified health status Plan: Admits to routine alcohol use. Drinks a few beers daily. This can contribute to his cardiomyopathy. Spent time reviewing this in detail with patient. (6) Noncompliance: Code(s): Z91.199 - Patient's noncompliance with other medical treatment and regimen due to unspecified reason Plan: Need for strict medication compliance reviewed. This has been an issue in the past and we have had further discussions about this. (7) Hypersomnia: Comment: He does have excessive urge to sleep during the day. ESS=10 Again this suggests some obstructive sleep apnea. Code(s): G47.10 - Hypersomnia, unspecified Plan: Order a sleep study Plan Time spent on chart review, documentation, interview and assessment Orders: Orders Cardiac Rehab Today I42.9 - Cardiomyopathy, unspecified, I50.9 - Heart failure, unspecified RT home sleep study Today G47.10 - Hypersomnia, unspecified Coding Level of Care Code Est Pt Level 4 (05790) Diagnoses Chronic HFrEF (heart failure with reduced ejection fraction) I50.22 Cardiomyopathy I42.9 S/P cardiac catheterization Z98.890 NSVT (nonsustained ventricular tachycardia) I47.2 Alcohol use Z78.9 Noncompliance Z91.199 Hypersomnia G47.10 CPT Codes EKG - CPT: 95804-[id number], Complete ([id number]) Time Spent (min) 35
== END 2023-07-08 08:58 | disposition home or self-care (01) ==
PROVIDERS: PCP Nurse Practitioner Primary Care; Visit Provider Nurse Practitioner Family
DX: I50.22 Chronic systolic (congestive) heart failure (principal); I42.9 Cardiomyopathy, unspecified; Z98.890 Other specified postprocedural states; I47.20 Ventricular tachycardia, unspecified; Z78.9 Other specified health status; Z91.199 Patient's noncompliance with other medical treatment and regimen due to unspecified reason; G47.10 Hypersomnia, unspecified
CPT/HCPCS: 93010; 99214

== ENCOUNTER → 2023-07-08 08:21 | Outpatient (BNVA) | payer MEDICAID, SELFPAY | PROVIDERS: PCP Nurse Practitioner Primary Care; Visit Provider Nurse Practitioner Family | DX: I50.22 Chronic systolic (congestive) heart failure (principal); I42.9 Cardiomyopathy, unspecified; I47.20 Ventricular tachycardia, unspecified; G47.10 Hypersomnia, unspecified; Z98.890 Other specified postprocedural states; Z78.9 Other specified health status; Z91.199 Patient's noncompliance with other medical treatment and regimen due to unspecified reason | CPT/HCPCS: 93005; 99212 ==

== ENCOUNTER 2023-10-05 12:30 | Outpatient (AMB) | payer MEDICAID, SELFPAY ==
--- NOTE | 2023-10-05 12:49 | A.OFFVIS_ITS ---
Vital Signs 10/05/23 12:50 Height 5 ft 11 in Weight 205 lb 0.478 oz BMI 28.6 BP 142/80 H Blood Pressure Location Lt brachial Position Sitting Pulse 88 Pulse Oximetry (%) 90 L Intake Visit Reasons: 3 mth fu Intake Note: 3 month follow-up c/o sob has been having trouble get some of his meds Marketing Database Coordinator Required: No Allergies penicillin V Allergy (Severe, Verified 07/08/23 08:29) Swollen face Penicillins [PENICILLINS] Allergy (Severe, Verified 07/08/23 08:29) ANGIOEDEMA shellfish derived [SHELLFISH DERIVED] Allergy (Severe, Verified 07/08/23 08:29) ANAPHYLAXIS Medication List - Last Reviewed 10/05/23 by CHELY Hirsch aspirin (Adult Aspirin Regimen) 81 mg PO DAILY atorvastatin 40 mg PO BEDTIME cholecalciferol (vitamin D3) 1,250 mcg PO QWEEK empagliflozin (Jardiance) 25 mg PO DAILY famotidine (Pepcid) 20 mg PO BID 2 days fluticasone propion-salmeterol 250-50 mcg/dose (Advair Diskus) 1 puff inhalation BID furosemide 40 mg See Protocol PO BID@0900,1800 ipratropium-albuterol 0.5 mg-3 mg(2.5 mg base)/3 mL 1 amp inhalation Q6H PRN metformin 500 mg PO BID metoprolol succinate ER 25 mg PO DAILY sacubitril-valsartan 49-51 mg (Entresto) 1 tab PO BID spironolactone 25 mg See Protocol PO DAILY HPI Comments Details: Jerry comes for follow-up. He said he continues to drink about 22 oz of beer every day. He is taking his medications more regularly but says he is consistent with it and misses it twice a week. He does not give any reason for he just says he misses it. He said he takes medication more frequently now because it makes him feel better. He said he has not short of breath when he is taking his medications. He has not been hospitalized in the last 2 years for congestive heart failure. He has been more regular with his clinical visits. He has not had any recent blood work. However he says he takes all his medications including an aspirin which is [id number]. He denies any palpitations, lightheadedness, syncope. Denies any worsening orthopnea, PND, leg edema but does get NYHA class 2 symptoms of shortness of breath. Denies any chest pain. [facility] Medical History (Updated 10/05/23 @ 14:50 by Mark Anthony Solorio MD) Asthma Smoker New onset type 2 diabetes mellitus Tobacco abuse Chronic HFrEF (heart failure with reduced ejection fraction) Streptococcus infection, group G Hypertension RVH (right ventricular hypertrophy) Tobacco abuse Elevated troponin Bacteremia Asthma Surgical History (Updated 10/05/23 @ 14:50 by Mark Anthony Solorio MD) S/P cardiac catheterization Hx of appendectomy Family History Mother Breast cancer Social History Household Members: Children Household Members Other:: Daughter Housing: Apartment Do you presently have visiting nurse or other home services: No Alcohol intake: current Alcohol intake frequency: a few times a week Alcohol type: beer and hard liquor Patient Tobacco Use Status: Current everyday Tobacco user Tobacco use type: Cigarette Cigarette Packs Per Day: 0.5 Cigarettes Per Day: 5 Years Smoked: 25 e-Cigarette/Vaping Use: Never Used Second Hand Smoke Exposure: Yes Substance Use Type: Crack/Cocaine service: No Current occupational status: employed Review of Systems Const Denies chills, Denies fatigue, Denies fever(s), Denies frequent falls, Denies weakness, Denies weight gain and Denies weight loss ENT Denies dizziness Card Denies chest pain, Denies leg edema, Denies lightheadedness, Denies palpita tions, Denies dyspnea, Denies dyspnea on exertion, Denies orthopnea and Denies other (loss of consciousness) Resp Denies cough, Denies dyspnea and Denies dyspnea on exertion GI Denies hematochezia and Denies change in stool character Musc Denies abnormal gait, Denies muscle weakness, Denies numbness, Denies radiating pain into limb and Denies tingling Neuro Denies abnormal gait, Denies dizziness, Denies frequent falls, Denies numbness, Denies tingling and Denies weakness Endo Denies fatigue and Denies palpitations Physical Exam Vital Signs: Last Vital Signs Pulse 88 10/05/23 12:50 BP 142/80 H 10/05/23 12:50 Pulse Ox 90 L 10/05/23 12:50 BMI result Body Mass Index 28.6 Const General: cooperative, healthy appearing, comfortable and no acute distress Orientation/consciousness: patient oriented x3 Neck Neck: Yes normal visual inspection and Yes no JVD Resp Effort & Inspection: normal respiratory effort Auscultation: clear to auscultation bilaterally, no crackles, no rales, no rhonchi and no wheezes Cardio Jugular venous distension: no JVD Rate: regular rate Rhythm: regular rhythm Heart sounds: S1 normal heart sound present, S2 normal heart sound present, no murmurs and no rubs Neuro General: patient oriented x3 Extrem General: Yes normal to inspection, No no pedal edema and No calf tenderness Psych Appearance: grossly normal Mental Status: mental status grossly normal Speech and movement: Normal speech and movement present Assessment & Plan Assessment & Plan (1) Chronic HFrEF (heart failure with reduced ejection fraction): Code(s): I50.22 - Chronic systolic (congestive) heart failure Category: Medical Plan: Heart failure with reduced ejection fraction with severe LV systolic dysfu nction, nonischemic in nature. He said he is more regular with his medicines then in the past. He realized a value of it as he has not been hospitalized and he does not have much shortness of breath when he takes his medications. I discussed with him the nature of LV systolic dysfunction heart failure syndrome and importance of taking his medications. Most likely cause for his cardiomyopathy appears to be alcohol related and I have advised him to taper and discontinue alcohol use in the long run. Meanwhile importance of compliance with neurohormonal modulation was discussed. Advised to continue Entresto. Will increase metoprolol to 50 mg daily for neurohormonal modulation. Continue spironolactone therapy. Continue current diuretic dose. Advise lab work today. Will obtain a Holter monitor in near future. Follow up in the clinic in 1 month's time to check vitals and if he is doing well will further uptitrate his medications. If he remains compliant will follow-up echocardiogram in 3 months time to assess improvement in LV function. If the LV function does not improve have discussed with him the risk of sudden cardiac associated with severe LV systolic dysfunction in patients with heart failure syndrome. At that point time will discuss about placement of defibrillator. Follow up in the clinic 1 month for nurse visit in 3 months with me. Thank you for allowing me to partake in his care Orders: Orders Basic Metabolic Panel Today I50.22 - Chronic systolic (congestive) heart failure B Type Natriuretic Peptide Today I50.22 - Chronic systolic (congestive) heart failure CA echo transthoracic complete 3 Months I50.22 - Chronic systolic (congestive) heart failure ECG 3 day holter monitor 6 Weeks I47.2 - Ventricular tachycardia Medications: New metoprolol succinate ER (Toprol XL) 50 mg PO DAILY 30 tabs 5RF Coding Level of Care Code Est Pt Level 4 (07242) Diagnoses Chronic HFrEF (heart failure with reduced ejection fraction) I50.22
[2023-10-05 12:50] VITALS: BP 142/80; PULSE 88; O2SAT 90; BMI 28.6
== END 2023-10-05 13:30 | disposition home or self-care (01) ==
PROVIDERS: PCP Nurse Practitioner Primary Care; Referring Provider Nurse Practitioner Primary Care; Visit Provider Internal Medicine Cardiovascular Disease
DX: I50.22 Chronic systolic (congestive) heart failure (principal)
CPT/HCPCS: 99214

== ENCOUNTER → 2023-10-05 12:30 | Outpatient (BNVA) | payer MEDICAID, SELFPAY | PROVIDERS: PCP Nurse Practitioner Primary Care; Visit Provider Internal Medicine Cardiovascular Disease | DX: I50.22 Chronic systolic (congestive) heart failure (principal); I47.20 Ventricular tachycardia, unspecified; F10.90 Alcohol use, unspecified, uncomplicated | CPT/HCPCS: 99212 ==

== ENCOUNTER 2024-04-07 10:11 | Inpatient (IN) | payer OTHER, SELFPAY ==
[2024-04-07] VITALS (10 sets, daily range): BP systolic 110–160; BP diastolic 71–97; PULSE 60–105; RESP 16–30; TEMP 36.6–37.1; O2SAT 78–99; BMI 31.1; BMI 29.9
--- NOTE | ~2024-04-07 | XR_ITS ---
EXAMINATION: XR CHEST CLINICAL INFORMATION: Shortness of breath; question congestive heart failure. COMPARISON: Chest radiographs dated 01/31/2022. TECHNIQUE: Frontal view of the chest was obtained. FINDINGS: The heart size is at least top normal. There is pulmonary vasculature congestion. There are faint alveolar infiltrates within the mid and lower lungs bilaterally. No pleural effusion or pneumothorax is seen. There is no acute osseous abnormality. XR/XR chest 1V IMPRESSION: There is pulmonary vascular congestion, and faint bilateral mid and lower lung field alveolar infiltrates are seen. The findings favor borderline congestive heart failure. An early bilateral pneumonia or ARDS are less likely differential considerations. Recommend clinical correlation and follow-up chest radiographs to ensure clearance. Electronically signed by: Earl Brink MD 04/07/2024 01:01 PM EDT RP
--- NOTE | ~2024-04-07 | XR_ITS ---
EXAMINATION: XR CHEST CLINICAL INFORMATION: Follow-up CHF COMPARISON: Chest x-ray April 07, 2024 TECHNIQUE: Frontal view of the chest was obtained. FINDINGS: Cardiac silhouette is again noted to be enlarged. The lungs are well aerated. Interval decrease in prominence of the central pulmonary vasculature and interstitial markings. No gross lobar consolidation. No definitive pleural effusion. No pneumothorax. XR/XR chest 1V IMPRESSION: Interval improvement in pulmonary edema. Electronically signed by: Donnell Murray MD 04/08/2024 09:32 AM EDT
--- NOTE | 2024-04-07 10:29 | ED.SOB ---
HPI - SOB/Dyspnea General Chief Complaint: Dyspnea Stated Complaint: sob Time Seen by Provider: 04/07/24 10:21 Source: patient Limitations: no limitations History of Present Illness ED Provider: Dr. Zach Faulkner HPI Narrative: 63-year-old male with a history of nonischemic chronic HFrEF with EF of 25 - 30%, asthma, streptococcal bacteremia, hypertension, tobacco use disorder, alcohol use disorder who presents emergency department for evaluation of sudden onset of shortness of breath which started this morning at 08:30 hours. Patient states that he has had similar shortness breath in the past when he has been noncompliant with his diuretic. He states that he may have missed his diuretic these uncertain. He was having significant difficulty breathing and became incontinent. Paramedics state that his O2 saturation on room air was 78%. Here in the emergency department he was placed on an OxyMask at 6 L with improvement of his O2 saturation to 96%. Patient denied chest pain, neck, jaw, arm or back pain. He denied fever, chills, cough. He denied nausea, vomiting, diarrhea, myalgias arthralgias. Patient continues to smoke 4-5 cigarettes per day and he does drink at least 2 beers per day. Related Data Home Medications ?Medication ?Instructions ?Recorded ?Confirmed fluticasone 250 mcg-salmeterol 50 1 puff inhalation BID 09/16/21 10/05/23 mcg/dose blistr powdr for inhalation (Advair Diskus) ipratropium 0.5 mg-albuterol 3 mg 1 amp inhalation Q6H PRN wheezing 09/16/21 10/05/23 (2.5 mg base)/3 mL nebulization soln empagliflozin 10 mg tablet 25 mg PO DAILY 10/22/21 10/05/23 (Jardiance) metformin 500 mg tablet 500 mg PO BID 10/22/21 07/08/23 cholecalciferol (vitamin D3) 1,250 1,250 mcg PO QWEEK 10/24/21 10/05/23 mcg (50,000 unit) capsule aspirin 81 mg tablet,delayed 81 mg PO DAILY 10/05/23 release (Adult Aspirin Regimen) Previous Rx's ?Medication ?Instructions ?Recorded furosemide 40 mg tablet 40 mg PO BID@0900,1800 #60 tabs 09/19/21 spironolactone 25 mg tablet 25 mg PO DAILY #30 tabs 09/19/21 famotidine 20 mg tablet (Pepcid) 20 mg PO BID premedication 2 days 02/23/23 #3 tabs atorvastatin 40 mg tablet 40 mg PO BEDTIME #30 tabs 03/09/23 sacubitril 49 mg-valsartan 51 mg 1 tab PO BID #60 tabs 09/23/23 tablet (Entresto) metoprolol succinate 50 mg 50 mg PO DAILY #30 tabs 10/05/23 tablet,extended release 24 hr (Toprol XL) Allergies Allergy/AdvReac Type Severity Reaction Status Date / Time penicillin V Allergy Severe Swollen Verified 04/07/24 10:25 face Penicillins [PENICILLINS] Allergy Severe ANGIOEDEMA Verified 04/07/24 10:25 shellfish derived Allergy Severe ANAPHYLAXIS Verified 04/07/24 10:25 [SHELLFISH DERIVED] Review of Systems Review of Systems: Yes all other systems are reviewed and are negative [facility] Past Medical History [facility] Narrative: Social history: He smokes 4-5 cigarettes per day. He does drink 2 beers per day. Denies drug use. Medical History (Updated 04/07/24 @ 16:30 by Zach Faulkner MD) Asthma Smoker New onset type 2 diabetes mellitus Tobacco abuse Chronic HFrEF (heart failure with reduced ejection fraction) Streptococcus infection, group G Hypertension RVH (right ventricular hypertrophy) Tobacco abuse Elevated troponin Bacteremia Asthma Surgical History (Updated 10/05/23 @ 14:50 by Mark Anthony Solorio MD) S/P cardiac catheterization Hx of appendectomy Family History Family History Mother Breast cancer Social History Social History Household Members: Children Household Members Other:: Daughter Housing: Apartment Do you presently have visiting nurse or other home services: No Alcohol intake: current Alcohol intake frequency: a few times a week Alcohol type: beer and hard liquor Patient Tobacco Use Status: Current everyday Tobacco user Tobacco use type: Cigarette Cigarette Packs Per Day: 0.5 Cigarettes Per Day: 5 Years Smoked: 25 Smoked in Last 30 Days: Yes e-Cigarette/Vaping Use: Never Used Second Hand Smoke Exposure: Yes Use of substances other than those prescribed or required for medical reasons: Yes Substance Use Type: Crack/Cocaine Advance Directives: No Advance Directives Information Provided: Yes service: No Current occupational status: employed Physical Exam Vital Signs: Vital Signs: Last Vital Signs Temp 98.7 F 04/07/24 14:24 Pulse 67 04/07/24 14:24 Resp 18 04/07/24 14:24 BP 127/90 H 04/07/24 14:24 Pulse Ox 96 04/07/24 15:08 O2 Del Method Oxymask 04/07/24 15:08 O2 Flow Rate 6 04/07/24 15:08 BMI result Body Mass Index 31.1 Vital signs revealed hypoxia with an O2 saturation of 96% on 6 liters/minute OxyMask. Exam: General: Awake, alert in no distress Head: Normocephalic, atraumatic EENT: PERRL, Lids normal, sclera normal, conjunctiva normal, nose normal , ears normal, throat without erythema or exudates Neck: Supple, no adenopathy Lung: breath sounds symmetric, rales at the bases, no wheezing or rhonchi Chest: symmetric movement, nontender Heart: regular rate and rhythm, normal S1, S2 no murmurs or rubs Abdomen: soft, non-tender, nondistended, normal bowel sounds Back: no vertebral tenderness, no CVAT Extremities: no deformities, moves all extremities symmetrically Neuro: Awake, alert, oriented, normal speech, cranial nerves intact, moves all extremities symmetrically Psych: Pleasant, cooperative Medications Administered Discontinued Medications Generic Name Dose Route Start Last Admin Trade Name Freq PRN Reason Stop Dose Admin Acetaminophen 975 mg 04/07/24 14:57 04/07/24 15:16 Acetaminophen 325 Mg Tablet PO 04/07/24 14:58 975 mg ONCE STA Administration Furosemide 60 mg 04/07/24 10:31 04/07/24 10:49 Furosemide 100 Mg/10 Ml Vial IVPUSH 04/07/24 10:32 60 mg ONCE ONE Administration Protocol Nitroglycerin 1 inch 04/07/24 10:31 04/07/24 10:50 Nitroglycerin 2 % Oint 1 Gm Packet TRANSDERMA 04/07/24 10:32 1 inch ONCE ONE Administration Medical Decision Making Medical Decision Making MDM Narrative: 63-year-old male with a history of nonischemic chronic HFrEF with EF of 25 - 30%, asthma, streptococcal bacteremia, hypertension, tobacco use disorder, alcohol use disorder who presents emergency department for evaluation of sudden onset of shortness of breath which started this morning at 08:30 hours. Patient states this has happened to him in the past when he has been noncompliant with his ?water pills?. Patient had an O2 saturation of 78 % on room air noted by the paramedics. Here in the emergency department he required 6 liters/minute on OxyMask to maintain O2 saturation above 92%. Lung exam did reveal rales at the bases. Differential diagnosis: ?Includes but is not limited to congestive heart failure, myocardial infarction, myocardial ischemia, pneumonia, electrolyte abnormalities, anemia Course: 16:11 My interpretation patient's laboratory evaluation as follows: CBC was normal. Coags were normal. VBG revealed a normal pH of 7.35 and a normal pCO2 of 49 with elevated bicarb of 27. Glucose elevated 147. Troponin was elevated at 63, patient was had similar elevations in the past. BNP elevated 941. Urinalysis was negative. COVID-19, RSV and influenza were negative. Chest x-ray was consistent with pulmonary edema. Patient was treated with Lasix 60 mg IV and nitro paste 1 in she was chest wall. The patient diuresed a proximally 3 L of urine. Patient now is requiring 3 liters/minute of oxygen via nasal cannula which is an improvement. Patient's repeat troponin is pending but I suspect that his initial elevation is secondary to type 2 injury caused by his hypoxia. I did discuss admission over tiger text with the covering hospitalist, Dr. Danielle Admission/Observation Consideration of admission/observation: Escalation of care including admission/observation considered (Yes) Consult Healthcare Provider Management of the patient was discussed with: Hospitalist ( Dr. Danielle) Lab Data MDM Lab Attestation statement: I reviewed the patient's lab results. 04/07/24 10:43 04/07/24 11:30 Labs: Lab Results 04/07/24 04/07/24 04/07/24 Range/Units 10:43 10:51 11:30 WBC 6.9 (4.8-10.8) X10*3/uL RBC 5.05 (4.60-5.80) X10*6/uL Hgb 16.3 (14.0-18.0) g/dl Hct 47.9 (42.0-52.0) % MCV 94.9 (80.0-98.0) fL MCH 32.3 (27.0-33.0) pg MCHC 34.0 (31.0-36.0) g/dl RDW 13.2 (11.0-16.0) % Plt Count 161 (160-400) X10*3/uL MPV 10.3 (9.4-12.4) fL Immature Gran % (Auto) 0.6 H (0.0-0.4) % Neut % (Auto) 64.4 (45-73) % Lymph % (Auto) 23.2 (20-40) % [place] % (Auto) 6.2 (2-11) % Eos % (Auto) 4.9 H (0-4) % Baso % (Auto) 0.7 (0-2) % Lymph # (Auto) 1.6 (1.2-4.9) X10*3/uL [place] # (Auto) 0.4 (0.1-1.2) X10*3/uL Eos # (Auto) 0.3 (0.0-0.4) X10*3/uL Baso # (Auto) 0.1 (0.0-0.2) X10*3/uL Abs Immat Gran (auto) 0.04 H (0.00-0.03) X10*3/uL Absolute Neuts (auto) 4.5 (2.0-8.3) x10*3/uL Absolute Nucleated RBC 0.000 (0.0-0.012) X10*3/uL Nucleated RBC % (auto) 0.0 (0.0-0.2) /100WBC PT 9.9 L (10.9-12.4) SEC INR 0.9 (0.9-1.1) APTT 29.8 (26.0-36.8) SEC VBG pH 7.35 (7.32-7.43) VBG pCO2 49 mmHg VBG pO2 101 mmHg VBG HCO3 27 H (22-26) mmol/L VBG O2 Saturation 99.0 % VBG Base Excess 1.4 mmol/L Sodium 144 (135-145) mmol/L Potassium 4.3 (3.3-5.1) mmol/L Chloride 102 (96-108) mmol/L Carbon Dioxide 32 H (22-29) mmol/L Anion Gap 14 (12-20) BUN 14 (9-16) mg/dL Creatinine 1.14 (0.5-1.4) mg/dL Estim Creat Clear Calc 73.3 Estimated GFR > 60 Random Glucose 147 H (60-115) mg/dL Calcium 10.0 (8.4-10.2) mg/dL Magnesium 2.0 (1.6-2.6) mg/dL Total Bilirubin 0.4 (0.0-1.0) mg/dL AST 32 (5-37) U/L ALT 21 (0-40) U/L Alkaline Phosphatase 71 (39-117) U/L Troponin I High Sens 63.3 H (<3.5-35.0) ng/L B-Natriuretic Peptide 941 H (<100) pg/mL Total Protein 7.5 (6.5-8.0) g/dL Albumin 4.2 (3.5-5.0) g/dL Lipase 29 (8-78) U/L Urine Color Yellow Urine Appearance Clear Urine pH 5.5 (5.0-9.0) Ur Specific [place] 1.010 (1.005-1.025) Urine Protein Negative (Neg-Trace) mg/dL Urine Glucose (UA) >=1000 H (Negative) mg/dL Urine Ketones Negative (Negative) mg/dL Urine Blood Negative (Negative) Urine Nitrite Negative (Negative) Ur Leukocyte Esterase Negative (Negative) Urine RBC 0-2 (0-2) /HPF Urine WBC 0-5 (0-5) /HPF Ur Squamous Epith Cells 0-2 (0-2) /HPF Urine Bacteria None Seen (None Seen) Hyaline Casts 0-2 (0-2) /LPF Influenza Type A (PCR) NEGATIVE (Negative) Influenza Type B (PCR) NEGATIVE (Negative) RSV RNA Qual (PCR) NEGATIVE (Negative) SARS-CoV-2 RNA (RT-PCR) NEGATIVE (Negative) Independent Interpretation I performed an independent interpretation of an: EKG and Plain X-Ray Interpretation: My interpretation patient's 12 EKG done at 10:50 hours is as follows: Normal sinus rhythm rate of 84, normal AR interval, prolonged QRS interval at 493 milliseconds, prolonged QT of [address] segment elevation, no ST segment depression, occasional PVC, no significant T-wave abnormalities My interpretation patient's chest x-ray is as follows: Bilateral interstitial infiltrates consistent with pulmonary edema Radiology Impression Discussion of test interpretation with radiology: I have reviewed the radiologist's reading. Radiologist Impression: XR chest 1V IMPRESSION: There is pulmonary vascular congestion, and faint bilateral mid and lower lung field alveolar infiltrates are seen. The findings favor borderline congestive heart failure. An early bilateral pneumonia or ARDS are less likely differential considerations. Recommend clinical correlation and follow-up chest radiographs to ensure clearance. Electronically signed by: Earl Brink MD 04/07/2024 01:01 PM EDT RP Dictated By: Earl Brink MD Independent Historian Clinical information obtained from an independent historian. History obtained from or confirmed by: EMS External Record Review External record reviewed: Inpatient record and Office record Chronic Conditions Patient?s care impacted by: Diabetes and Other (Congestive heart failure) Critical Care Time Critical Care Time Critical Care Time: Yes Total Critical Care Time: 55 Attestation: Critical Care: The patient was critically ill with a high probability of imminent or life threatening deterioration. I spent greater than 30 minutes of discontinuous time evaluating the patient,delivering critical care at the bedside, discussing and evaluating pertinent data with consultants. Critical care time does not include time spent performing separately billable procedures or teaching. Total time spent performing critical care was 55 minutes. Discharge Plan Discharge Prescriptions: No Action cholecalciferol (vitamin D3) 1,250 mcg (50,000 unit) capsule 1,250 mcg PO QWEEK famotidine [Pepcid] 20 mg tablet 20 mg PO BID 2 Days Qty: 3 0RF Rx Instructions: Take 1 tablet the morning of Day Before cardiac cath, Take 1 tablet the evening of Day Before cardiac cath, Take 1 tablet the morning OF the cardiac cath atorvastatin 40 mg tablet 40 mg PO BEDTIME Qty: 30 5RF Rx Instructions: Take 1 tablet at bedtime daily Dose has been increased to 40mg Entresto 49-51 mg tablet 1 tab PO BID Qty: 60 11RF fluticasone propion-salmeterol [Advair Diskus] 250-50 mcg/dose blister with device 1 puff inhalation BID ipratropium-albuterol 0.5 mg-3 mg(2.5 mg base)/3 mL solution for nebulization 1 amp inhalation Q6H PRN (Reason: wheezing) spironolactone 25 mg Tablet 25 mg PO DAILY Qty: 30 0RF Protocol: Hold for SBP< HOLD for SBP < : 90 furosemide 40 mg Tablet 40 mg PO BID@0900,1800 Qty: 60 0RF Protocol: Hold for SBP< HOLD for SBP < : 90 Jardiance 10 mg tablet 25 mg PO DAILY metformin 500 mg tablet 500 mg PO BID aspirin [Adult Aspirin Regimen] 81 mg tablet,delayed release (DR/EC) 81 mg PO DAILY metoprolol succinate [Toprol XL] 50 mg tablet extended release 24 hr 50 mg PO DAILY Qty: 30 5RF Print Language: Lao
--- NOTE | 2024-04-07 10:30 | PC.NURSE ---
pt presents to the ED d/t sudden onset SOB that occurred when he woke up this am around 0830. pt reports hx of CHF and possibly being noncompliant w/ diuretic but he's not so sure. pt reports similar sx in the past when he forgot to take his medication. pt states he put off presenting to the hospital but then it just became too much. pt then drove himself to the ED. upon ED arrival pt a&o4 but extremely hypoxic and tachypneic. pt noted to be 78% on RA. not home O2 dependent. pt immediately to ED 4. RT bedside - pt placed on 10L via oxymask w/ positive effect @ 96%. otherwise vss and up to date. nsr on the payment collector crackles noted throughout. pt then titrated to 6L via oxymask @ 94%. pt positioned upright to promote patent airway. pt denies any chest pain/palpitations/n/v/fever/chills. 20gIV placed in the right hand - labs obtained/sent to lab. ekg performed by tech. CONNORS bedside assessing pt. plan of care ongoing.
--- NOTE | 2024-04-07 10:32 | ECG_ITS ---
Test Reason : DYSPNEA Blood Pressure : / mmHG Vent. Rate : 087 BPM Atrial Rate : 087 BPM P-R Int : 184 ms QRS Dur : 106 ms QT Int : 410 ms P-R-T Axes : 043 -65 098 degrees QTc Int : 493 ms Sinus rhythm with occasional , and consecutive Premature ventricular complexes and Premature atrial complexes Possible Left atrial enlargement Left anterior fascicular block Incomplete left bundle branch block ST & T wave abnormality, consider lateral ischemia Prolonged QT Abnormal ECG When compared with ECG of 02-FEB-2022 10:19, Premature ventricular complexes are now Present Premature atrial complexes are now Present Incomplete left bundle branch block has replaced Incomplete right bundle branch block Referred By: Zach Faulkner Electronically Signed By:Jose Chambers
[2024-04-07] MEDS: Furosemide 100 MG/10 ML VIAL 60 MG IVPUSH (10:49)
[2024-04-07 10:50] LABS: MANUAL DIFF FLAG NO
[2024-04-07] MEDS: Nitroglycerin 2 % Oint 1 GM Packet 1 INCH TRANSDERMA (10:50)
[2024-04-07 10:52] LABS: Basophils Absolute Auto 0.1 X10*3/uL (0.0-0.2); Basophils Percent Auto 0.7 % (0-2); Eosinophils Absolute Auto 0.3 X10*3/uL (0.0-0.4); Eosinophils Percent Auto 4.9 % (0-4); Hematocrit 47.9 % (42.0-52.0); Hemoglobin 16.3 g/dl (14.0-18.0); Imm Gran Abs Auto 0.04 X10*3/uL (0.00-0.03); Imm Gran Pct Auto 0.6 % (0.0-0.4); Lymphocytes Absolute Auto 1.6 X10*3/uL (1.2-4.9); Lymphocytes Percent Auto 23.2 % (20-40); Mean Corpuscular Hemoglobin 32.3 pg (27.0-33.0); Mean Corpuscular Volume 94.9 fL (80.0-98.0); Mean Platelet Volume 10.3 fL (9.4-12.4); Monocytes Absolute Auto 0.4 X10*3/uL (0.1-1.2); Monocytes Percent Auto 6.2 % (2-11); Neutrophils Absolute Auto 4.5 x10*3/uL (2.0-8.3); Neutrophils Percent Auto 64.4 % (45-73); Platelet Count 161 X10*3/uL (160-400); Red Blood Count 5.05 X10*6/uL (4.60-5.80); Red Cell Distribution Width 13.2 % (11.0-16.0); White Blood Count 6.9 X10*3/uL (4.8-10.8)
[2024-04-07 10:55] LABS: VBG Base Excess 1.4 mmol/L; VBG HCO3 27 mmol/L (22-26); VBG pCO2 49 mmHg; VBG pH 7.35 (7.32-7.43); VBG pO2 101 mmHg
[2024-04-07 10:55] LABS: Venous Blood Gas Refer to POC result
[2024-04-07 10:57] LABS: INTERNATIONAL NORM RATIO 0.9 (0.9-1.1); Prothrombin Time 9.9 SEC (10.9-12.4)
[2024-04-07 11:00] LABS: Partial Thromboplastin Time 29.8 SEC (26.0-36.8)
--- NOTE | 2024-04-07 11:10 | PC.NURSE ---
xray being taken at this time.
[2024-04-07 11:12] LABS: B Type Natriuretic Peptide 941 pg/mL (<100)
--- NOTE | 2024-04-07 11:19 | PC.NURSE ---
medication administered per provider order. pt currently remains on 6L via oxymask @ 96% at this time. wob/sob decreased. respirations even/slightly labored. pt remains in upright position. call newell placed within reach.
[2024-04-07 11:31] LABS: Influenza A PCR NEGATIVE (Negative); Influenza B PCR NEGATIVE (Negative); Resp Syncy Virus RNA Qual PCR NEGATIVE (Negative); SARS COV2 PCR INHOUSE NEGATIVE (Negative)
[2024-04-07 11:36] LABS: Appearance Urine Clear; Color Urine Yellow; Glucose Urine UA >=1000 mg/dL (Negative); Leukocyte Esterase Urine Negative (Negative); Nitrite Urine Negative (Negative); PH 5.5 (5.0-9.0); UMIC TRIGGER UACC YES; Urine Blood Negative (Negative); Urine Ketones Negative (Negative); Urine Protein Negative (Neg-Trace)
[2024-04-07 11:50] LABS: Alanine Aminotransferase 21 U/L (0-40); Albumin Level 4.2 g/dL (3.5-5.0); Alkaline Phosphatase 71 U/L (39-117); Anion Gap 14 (12-20); Aspartate Amino Transferase 32 U/L (5-37); Bilirubin Total 0.4 mg/dL (0.0-1.0); Blood Urea Nitrogen 14 mg/dL (9-16); Carbon Dioxide 32 mmol/L (22-29); Chloride 102 mmol/L (96-108); Creatinine Clr Calc Pharmacy 73.3; Estimated Glomerular Filt Rate > 60; Glucose Random 147 mg/dL (60-115); Lipase 29 U/L (8-78); Potassium 4.3 mmol/L (3.3-5.1); Sodium 144 mmol/L (135-145); Total Protein 7.5 g/dL (6.5-8.0)
[2024-04-07 11:52] LABS: Bacteria Urine None Seen (None Seen); Hyaline Casts Urine 0-2 /LPF (0-2); RBC Urine 0-2 /HPF (0-2); Squamous Epithelial Cell Urine 0-2 /HPF (0-2); WBC Urine 0-5 /HPF (0-5)
[2024-04-07 11:57] LABS: Troponin-I High Sensitivity 63.3 ng/L (<3.5-35.0)
--- NOTE | 2024-04-07 15:08 | PC.NURSE ---
pt continues to have positive output s/p lasix administration. output documented in I&O section. attempted to wean pt off of O2 - pt noted to be on 84% on RA w/ good read. pt replaced back on 6L via oxymask @ 96%. provider notified/aware of results.
[2024-04-07] MEDS: Acetaminophen 325 MG TABLET 975 MG PO (15:16)
--- NOTE | 2024-04-07 16:57 | PM.IMHP ---
History of Present Illness Date of Service: 04/07/24 Chief Complaint: sob 63M PMH non ischemic cardiomyopathy, alcohol dependence, diabetes presented with shortness of breath. Patient states that he is noncompliant with medications takes him about once a week. He also states that he drinks much less than he used to, reports about 2 24 oz beers every other day. He says that he was feeling well day prior to presentation, on day of presentation woke up feeling very short of breath even at rest, worse on exertion. Denies weight gain or edema. Denies chest pain fever or chills. In ED was found to be severely dyspneic, 78% on room air. Chest x-ray with bilateral opacities, elevated BNP. Was given IV Lasix with significant improvement Review of Systems Review of Systems: Yes all other systems are reviewed and are negative [facility] Medical History Asthma Smoker New onset type 2 diabetes mellitus Tobacco abuse Chronic HFrEF (heart failure with reduced ejection fraction) Streptococcus infection, group G Hypertension RVH (right ventricular hypertrophy) Tobacco abuse Elevated troponin Bacteremia Asthma Family History Mother Breast cancer Surgical History S/P cardiac catheterization Hx of appendectomy Social History Household Members: Children Household Members Other:: Daughter Housing: Apartment Do you presently have visiting nurse or other home services: No Alcohol intake: current Alcohol intake frequency: a few times a week Alcohol type: beer and hard liquor Patient Tobacco Use Status: Current someday Tobacco user Tobacco use type: Cigarette Cigarette Packs Per Day: 0.5 Cigarettes Per Day: 5 Years Smoked: 25 Smoked in Last 30 Days: Yes e-Cigarette/Vaping Use: Never Used Second Hand Smoke Exposure: Yes Use of substances other than those prescribed or required for medical reasons: Yes Substance Use Type: Crack/Cocaine Advance Directives: No Advance Directives Information Provided: Yes Nutrition Risks: No Nutritional Risk service: No Current occupational status: employed Meds Allergies Allergy/AdvReac Type Severity Reaction Status Date / Time penicillin V Allergy Severe Swollen Verified 04/07/24 10:25 face Penicillins [PENICILLINS] Allergy Severe ANGIOEDEMA Verified 04/07/24 10:25 shellfish derived Allergy Severe ANAPHYLAXIS Verified 04/07/24 10:25 [SHELLFISH DERIVED] Home Medications ?Medication ?Instructions ?Recorded ?Confirmed ?Last Taken ?Type fluticasone 250 mcg-salmeterol 50 1 puff inhalation BID 09/16/21 04/07/24 04/06/24 11:00 History mcg/dose blistr powdr for inhalation (Advair Diskus) empagliflozin 10 mg tablet 25 mg PO DAILY 10/22/21 04/07/24 04/06/24 11:00 History (Jardiance) metformin 500 mg tablet 500 mg PO BID 10/22/21 04/07/24 04/06/24 11:00 History cholecalciferol (vitamin D3) 1,250 1,250 mcg PO FR 10/24/21 04/07/24 04/06/24 11:00 History mcg (50,000 unit) capsule aspirin 81 mg tablet,delayed 81 mg PO DAILY 10/05/23 04/07/24 04/06/24 11:00 History release (Adult Aspirin Regimen) atorvastatin 40 mg tablet 40 mg PO DAILY 04/07/24 04/07/24 04/06/24 11:00 History tiotropium bromide 2.5 2 puff inhalation QAM 04/07/24 04/07/24 04/06/24 11:00 History mcg/actuation mist for inhalation (Spiriva Respimat) Physical Exam Vital Signs and Narrative: Vital Signs: Last Vital Signs Temp 98.7 F 04/07/24 14:24 Pulse 67 04/07/24 14:24 Resp 18 04/07/24 14:24 BP 127/90 H 04/07/24 14:24 Pulse Ox 96 04/07/24 15:08 O2 Del Method Oxymask 04/07/24 15:08 O2 Flow Rate 6 04/07/24 15:08 BMI result Body Mass Index 31.1 General: AO X 3, no acute distress Resp: CTA bilateral, no accessory muscles used CVS: S1,S2,RRR GI: soft, non tender, non distended Neuro: motor grossly intact, alert Psych: appropriate affect, appropriate insight Results Labs 04/07/24 10:43 04/07/24 11:30 Labs: Laboratory Results - last 24 hr 04/07/24 04/07/2404/07/24 10:43 10:51 11:30 MCV 94.9 MCH 32.3 MCHC 34.0 RDW 13.2 Plt Count 161 MPV 10.3 Immature Gran % (Auto) 0.6 H Neut % (Auto) 64.4 Lymph % (Auto) 23.2 [place] % (Auto) 6.2 Eos % (Auto) 4.9 H Baso % (Auto) 0.7 Lymph # (Auto) 1.6 [place] # (Auto) 0.4 Eos # (Auto) 0.3 Baso # (Auto) 0.1 Abs Immat Gran (auto) 0.04 H Absolute Neuts (auto) 4.5 Absolute Nucleated RBC 0.000 Nucleated RBC % (auto) 0.0 PT 9.9 L INR 0.9 APTT 29.8 VBG pH 7.35 VBG pCO2 49 VBG pO2 101 VBG HCO3 27 H VBG O2 Saturation 99.0 VBG Base Excess 1.4 Anion Gap 14 Estim Creat Clear Calc 73.3 Estimated GFR > 60 Random Glucose 147 H Calcium 10.0 Magnesium 2.0 Total Bilirubin 0.4 AST 32 ALT 21 Alkaline Phosphatase 71 Troponin I High Sens 63.3 H B-Natriuretic Peptide 941 H Total Protein 7.5 Albumin 4.2 Lipase 29 Urine Color Yellow Urine Appearance Clear Urine pH 5.5 Ur Specific [place] 1.010 Urine Protein Negative Urine Glucose (UA) >=1000 H Urine Ketones Negative Urine Blood Negative Urine Nitrite Negative Ur Leukocyte Esterase Negative Urine RBC 0-2 Urine WBC 0-5 Ur Squamous Epith Cells 0-2 Urine Bacteria None Seen Hyaline Casts 0-2 Influenza Type A (PCR) NEGATIVE Influenza Type B (PCR) NEGATIVE RSV RNA Qual (PCR) NEGATIVE SARS-CoV-2 RNA (RT-PCR) NEGATIVE Imaging Radiologist's Impressions: Impressions Chest X-Ray 04/07/24 10:32 IMPRESSION: There is pulmonary vascular congestion, and faint bilateral mid and lower lung field alveolar infiltrates are seen. The findings favor borderline congestive heart failure. An early bilateral pneumonia or ARDS are less likely differential considerations. Recommend clinical correlation and follow-up chest radiographs to ensure clearance. Electronically signed by: Earl Brink MD 04/07/2024 01:01 PM EDT RP Assessment and Plan (1) Hypoxia: Status: Acute Plan 63M PMH non ischemic cardiomyopathy, alcohol dependence, diabetes presented with shortness of breath acute hypoxic respiratory failure due to acute on chronic systolic chf iv lasix, monitor lytes echo Continue Entresto, metoprolol etoh dependence monitor ciwa dm insulin dvt prophylaxis - lovenox full code patient with hypoxia, resp distress, requiring iv lasix and close monitoring therefore expected require at least 2 midnights inpatient Quality Stroke Does the patient have a stroke diagnosis?: No VTE Prior VTE?: No VTE Risk Level:: Medical - moderate - high VTE Device Contraindication: Treatment Not Indicated VTE Drug Contraindication: N/A - Med Ordered
[2024-04-07] MEDS: Furosemide 40 MG/4 ML VIAL IVPUSH (17:33)
--- NOTE | 2024-04-07 17:43 | PC.NURSE ---
pt taken off 6L via oxymask at this time and transitioned to 3L via NC @ 96%. pt tolerating transition well. no sob/wob noted. respirations remain even/unlabored. sitting upright to promote patent airway. pt waiting for bed assignment at this time. plan of care ongoing. call newell placed within reach.
--- NOTE | 2024-04-07 18:02 | PHA.MEDREC ---
Addendum entered by Eulalia Sams RPh 04/07/24 18:56: Med rec checked by pharmacist: Note correction Entresto used for HF Original Note: Pharmacy Consult ? Medication Reconciliation Pharmacy has completed the medication reconciliation. Spoke with patient and he was able to confirm some medications but was confused on others. He was able to confirm his Vitamin D3 1250mcg tab once a week and the patient states he takes it Fridays but was not able to take it this morning but took it last week. He also claims he is not taking any Diabetic medications (Entresto 49mg-51mg and Metformin 500mg) and has not taken any in about 6 months but after calling [facility] they were able to confirm what he is getting right now in his med box and the entresto and Metformin are apart of that and nothing is in their system for the patient to stop.
--- NOTE | 2024-04-07 18:04 | PC.NURSE ---
critical lab value - repeat troponin of 100.[address] at this time. dr. metzger notified/aware.
[2024-04-07 18:05] LABS: Troponin-I High Sensitivity 100.4 ng/L (<3.5-35.0)
[2024-04-07 18:29] LABS: Estimated Average Glucose 148 mg/dL; Hemoglobin A1C 213.9595 umol/L; Hemoglobin A1c % 6.8 % (<6.0)
--- NOTE | 2024-04-07 19:17 | PC.NURSE ---
this rn assumed care of pt,pt a&ox4, respirations even and unlabored. pt denies pain at this time. pt given food per request. 3L nasal cannula sating 98%.
[2024-04-07 20:40] LABS: Glucose, Whole Blood 216 mg/dL (60-115)
[2024-04-07] MEDS: Sacubitril/Valsartan 49/51 1 TAB TABLET PO (20:49)
[2024-04-07] MEDS: Insulin Lispro 100 UNIT/ML 3 ML VIAL SUBCUT (20:49)
[2024-04-08] VITALS: BP 132/88; PULSE 73; RESP 20; TEMP 36.1; O2SAT 95
[2024-04-08 04:00] VITALS: BP 116/77; PULSE 72; RESP 16; TEMP 36.4; O2SAT 95
[2024-04-08 07:15] LABS: Hematocrit 51.5 % (42.0-52.0); Hemoglobin 17.6 g/dl (14.0-18.0); Mean Corpuscular HGB Conc 34.2 g/dl (31.0-36.0); Mean Corpuscular Hemoglobin 31.7 pg (27.0-33.0); Mean Corpuscular Volume 92.6 fL (80.0-98.0); Mean Platelet Volume 9.7 fL (9.4-12.4); Platelet Count 189 X10*3/uL (160-400); Red Blood Count 5.56 X10*6/uL (4.60-5.80); Red Cell Distribution Width 12.6 % (11.0-16.0); White Blood Count 6.3 X10*3/uL (4.8-10.8)
[2024-04-08 07:25] VITALS: BP 134/91; PULSE 57; RESP 20; TEMP 36.2; O2SAT 96
[2024-04-08 07:35] LABS: Anion Gap 13 (12-20); Blood Urea Nitrogen 16 mg/dL (9-16); Calcium 10.1 mg/dL (8.4-10.2); Carbon Dioxide 32 mmol/L (22-29); Chloride 100 mmol/L (96-108); Creatinine Clr Calc Pharmacy 74.5; Estimated Glomerular Filt Rate > 60; Glucose Fasting 151 mg/dL (60-99); Magnesium 1.9 mg/dL (1.6-2.6); Potassium 3.8 mmol/L (3.3-5.1); Sodium 141 mmol/L (135-145)
[2024-04-08] MEDS: Aspirin Enteric Coated 81 MG TABLET.DR PO (07:51)
[2024-04-08] MEDS: Spironolactone 25 MG TABLET PO (07:52)
[2024-04-08] MEDS: Atorvastatin Calcium 40 MG TABLET PO (07:52)
[2024-04-08] MEDS: Metoprolol Succinate ER 50 MG TAB.ER.24H PO (07:52)
[2024-04-08] MEDS: Sacubitril/Valsartan 49/51 1 TAB TABLET PO (07:52)
[2024-04-08] MEDS: Enoxaparin Sodium 40 MG/0.4 ML SYRINGE SUBCUT (07:52)
[2024-04-08] MEDS: Empagliflozin 25 MG TABLET PO (07:52)
[2024-04-08] MEDS: Furosemide 40 MG/4 ML VIAL IVPUSH (07:52)
[2024-04-08 07:53] LABS: Glucose, Whole Blood 135 mg/dL (60-115)
[2024-04-08] MEDS: 0.9 % Sodium Chloride Flush 3 ML SYRINGE IVFLUSH (07:53)
--- NOTE | 2024-04-08 10:16 | PM.DS ---
DS: Providers Provider Date of Service: 04/08/24 Date of admission: 04/07/24 16:55 Date of discharge: 04/08/24 Primary care physician: Veronique Gastelum NP DS: Diagnosis Discharge Diagnosis (1) Hypoxia: Status: Acute DS: Summary Hospital Course Hospital Course: from initial hpi: 63M PMH non ischemic cardiomyopathy, alcohol dependence, diabetes presented with shortness of breath. Patient states that he is noncompliant with medications takes him about once a week. He also states that he drinks much less than he used to, reports about 2 24 oz beers every other day. He says that he was feeling well day prior to presentation, on day of presentation woke up feeling very short of breath even at rest, worse on exertion. Denies weight gain or edema. Denies chest pain fever or chills. In ED was found to be severely dyspneic, 78% on room air. Chest x-ray with bilateral opacities, elevated BNP. Was given IV Lasix with significant improvement hospital course: Patient was admitted for acute hypoxic respiratory failure due to acute on chronic systolic CHF. He was treated with IV Lasix and improved to baseline faster than expected. He is now on room air and no shortness of breath, chest x-ray is much improved. Compliance with medications was stressed. He was continued on Entresto metoprolol patient reports that he has enough medications at home. We will defer follow up echo as outpatient. For alcohol dependence patient did not show any signs with withdrawal. For diabetes was continued on insulin. Time Attestation Discharge Coordination Time (in mins): 33 Quality: Safe Use of Opioids Does Pt have an Active Cancer Diagnosis on the Problem List?: No Quality: Stroke Does the patient have a stroke diagnosis?: No Physical Exam Vital Signs: Vital Signs: Last Vital Signs Temp 97.2 F 04/08/24 07:25 Pulse 57 04/08/24 07:25 Resp 20 04/08/24 07:25 BP 134/91 H 04/08/24 07:25 Pulse Ox 96 04/08/24 07:25 O2 Del Method Nasal Cannula 04/08/24 07:25 O2 Flow Rate 3 04/08/24 07:25 BMI result Body Mass Index 29.9 General: AO X 3, no acute distress Resp: CTA bilateral, no accessory muscles used CVS: S1,S2,RRR GI: soft, non tender, non distended Neuro: motor grossly intact, alert Psych: appropriate affect, appropriate insight DS: Data Data Completed and Pending Labs on day of discharge: Laboratory Results - last 24 hr 04/07/24 04/07/24 04/07/24 10:43 10:51 11:30 WBC 6.9 RBC 5.05 Hgb 16.3 Hct 47.9 MCV 94.9 MCH 32.3 MCHC 34.0 RDW 13.2 Plt Count 161 MPV 10.3 Immature Gran % (Auto) 0.6 H Neut % (Auto) 64.4 Lymph % (Auto) 23.2 Daggett % (Auto) 6.2 Eos % (Auto) 4.9 H Baso % (Auto) 0.7 Lymph # (Auto) 1.6 Daggett # (Auto) 0.4 Eos # (Auto) 0.3 Baso # (Auto) 0.1 Abs Immat Gran (auto) 0.04 H Absolute Neuts (auto) 4.5 Absolute Nucleated RBC 0.000 Nucleated RBC % (auto) 0.0 PT 9.9 L INR 0.9 APTT 29.8 VBG pH 7.35 VBG pCO2 49 VBG pO2 101 VBG HCO3 27 H VBG O2 Saturation 99.0 VBG Base Excess 1.4 Sodium 144 Potassium 4.3 Chloride 102 Carbon Dioxide 32 H Anion Gap 14 BUN 14 Creatinine 1.14 Estim Creat Clear Calc 73.3 Estimated GFR > 60 POC Glucose Random Glucose 147 H Fasting Glucose Estimat Average Glucose 148 Hemoglobin A1c % 6.8 H Calcium 10.0 Magnesium 2.0 Total Bilirubin 0.4 AST 32 ALT 21 Alkaline Phosphatase 71 Troponin I High Sens 63.3 H B-Natriuretic Peptide 941 H Total Protein 7.5 Albumin 4.2 Lipase 29 Urine Color Yellow Urine Appearance Clear Urine pH 5.5 Ur Specific Randlett 1.010 Urine Protein Negative Urine Glucose (UA) >=1000 H Urine Ketones Negative Urine Blood Negative Urine Nitrite Negative Ur Leukocyte Esterase Negative Urine RBC 0-2 Urine WBC 0-5 Ur Squamous Epith Cells 0-2 Urine Bacteria None Seen Hyaline Casts 0-2 Influenza Type A (PCR) NEGATIVE Influenza Type B (PCR) NEGATIVE RSV RNA Qual (PCR) NEGATIVE SARS-CoV-2 RNA (RT-PCR) NEGATIVE 04/07/24 04/07/24 04/08/24 17:27 20:37 06:50 WBC 6.3 RBC 5.56 Hgb 17.6 Hct 51.5 MCV 92.6 MCH 31.7 MCHC 34.2 RDW 12.6 Plt Count 189 MPV 9.7 Immature Gran % (Auto) Neut % (Auto) Lymph % (Auto) Daggett % (Auto) Eos % (Auto) Baso % (Auto) Lymph # (Auto) Daggett # (Auto) Eos # (Auto) Baso # (Auto) Abs Immat Gran (auto) Absolute Neuts (auto) Absolute Nucleated RBC 0.000 Nucleated RBC % (auto) 0.0 PT INR APTT VBG pH VBG pCO2 VBG pO2 VBG HCO3 VBG O2 Saturation VBG Base Excess Sodium 141 Potassium 3.8 Chloride 100 Carbon Dioxide 32 H Anion Gap 13 BUN 16 Creatinine 1.10 Estim Creat Clear Calc 74.5 Estimated GFR > 60 POC Glucose 216 H Random Glucose Fasting Glucose 151 H Estimat Average Glucose Hemoglobin A1c % Calcium 10.1 Magnesium 1.9 Total Bilirubin AST ALT Alkaline Phosphatase Troponin I High Sens 100.4 H* D B-Natriuretic Peptide Total Protein Albumin Lipase Urine Color Urine Appearance Urine pH Ur Specific [place] Urine Protein Urine Glucose (UA) Urine Ketones Urine Blood Urine Nitrite Ur Leukocyte Esterase Urine RBC Urine WBC Ur Squamous Epith Cells Urine Bacteria Hyaline Casts Influenza Type A (PCR) Influenza Type B (PCR) RSV RNA Qual (PCR) SARS-CoV-2 RNA (RT-PCR) 04/08/24 07:32 WBC RBC Hgb Hct MCV MCH MCHC RDW Plt Count MPV Immature Gran % (Auto) Neut % (Auto) Lymph % (Auto) Daggett % (Auto) Eos % (Auto) Baso % (Auto) Lymph # (Auto) Daggett # (Auto) Eos # (Auto) Baso # (Auto) Abs Immat Gran (auto) Absolute Neuts (auto) Absolute Nucleated RBC Nucleated RBC % (auto) PT INR APTT VBG pH VBG pCO2 VBG pO2 VBG HCO3 VBG O2 Saturation VBG Base Excess Sodium Potassium Chloride Carbon Dioxide Anion Gap BUN Creatinine Estim Creat Clear Calc Estimated GFR POC Glucose 135 H Random Glucose Fasting Glucose Estimat Average Glucose Hemoglobin A1c % Calcium Magnesium Total Bilirubin AST ALT Alkaline Phosphatase Troponin I High Sens B-Natriuretic Peptide Total Protein Albumin Lipase Urine Color Urine Appearance Urine pH Ur Specific [place] Urine Protein Urine Glucose (UA) Urine Ketones Urine Blood Urine Nitrite Ur Leukocyte Esterase Urine RBC Urine WBC Ur Squamous Epith Cells Urine Bacteria Hyaline Casts Influenza Type A (PCR) Influenza Type B (PCR) RSV RNA Qual (PCR) SARS-CoV-2 RNA (RT-PCR) Discharge Plan Discharge Anticipated Discharge Date/Time: 04/08/24 10:10 Patient Disposition: Home, Self-Care Discharge Diagnosis: chf Referrals: Veronique Gastelum, [employer] [Primary Care Provider] - 1 Week Discharge Medications: New albuterol sulfate 90 mcg/actuation aero powdr breath act w/sensor 1 inh inhalation Q4-6H PRN (Reason: shortness of breath or wheezing) Qty: 1 0RF Continued cholecalciferol (vitamin D3) 1,250 mcg (50,000 unit) capsule 1,250 mcg PO FR Entresto 49-51 mg tablet 1 tab PO BID Qty: 60 11RF fluticasone propion-salmeterol [Advair Diskus] 250-50 mcg/dose blister with device 1 puff inhalation BID spironolactone 25 mg Tablet 25 mg PO DAILY Qty: 30 0RF Protocol: Hold for SBP< HOLD for SBP < : 90 furosemide 40 mg Tablet 40 mg PO BID@0900,1800 Qty: 60 0RF Protocol: Hold for SBP< HOLD for SBP < : 90 Spiriva Respimat 2.5 mcg/actuation mist 2 puff inhalation QAM atorvastatin 40 mg tablet 40 mg PO DAILY Rx Instructions: Take 1 tablet at bedtime daily Dose has been increased to 40mg Jardiance 10 mg tablet 25 mg PO DAILY metformin 500 mg tablet 500 mg PO BID aspirin [Adult Aspirin Regimen] 81 mg tablet,delayed release (DR/EC) 81 mg PO DAILY metoprolol succinate [Toprol XL] 50 mg tablet extended release 24 hr 50 mg PO DAILY Qty: 30 5RF Discharge Orders: Discharge Order (Routine); Ordered 04/08/24 Ordered By: Harvinder Danielle Diet: Advance to usual diet Activity on Discharge: As tolerated Stand Alone Forms: Patient Portal Discharge page Print Language: Welsh Care Plan Goals: recovery Health Concerns: chf Plan of Treatment: Compliance with medications Assessment: See above
[2024-04-08] MEDS: Fluticasone/Vilanterol 100/25 BLST.W.DEV 1 PUFF INHALE (10:54)
[2024-04-08] MEDS: Tiotropium Bromide 2.5 mcg 1 PUFF/2.5 MCG MIST.INHAL 2 PUFF INHALE (10:54)
== END 2024-04-08 11:17 | disposition home or self-care (01) | DRG 291 ==
LOC: HO.ED 16:29 → HO.EDOVER 17:02 → HO.IMC 19:34
PROVIDERS: Admitting Provider Internal Medicine; Emergency Provider Emergency Medicine Emergency Medical Services; PCP Nurse Practitioner Primary Care; Visit Provider Internal Medicine
DX: I11.0 Hypertensive heart disease with heart failure (principal); I50.23 Acute on chronic systolic (congestive) heart failure; J96.01 Acute respiratory failure with hypoxia; F17.210 Nicotine dependence, cigarettes, uncomplicated; I42.8 Other cardiomyopathies; F10.20 Alcohol dependence, uncomplicated; Z71.6 Tobacco abuse counseling; Z20.822 Contact with and (suspected) exposure to COVID-19; J45.909 Unspecified asthma, uncomplicated; T50.916A Underdosing of multiple unspecified drugs, medicaments and biological substances, initial encounter; Z91.128 Patient's intentional underdosing of medication regimen for other reason; Z79.51 Long term (current) use of inhaled steroids; Z79.82 Long term (current) use of aspirin; Z79.84 Long term (current) use of oral hypoglycemic drugs; Z79.899 Other long term (current) drug therapy
CPT/HCPCS: 0241U; 36415; 71045; 80048; 80053; 81001; 82803; 82947; 83036; 83690; 83735; 83880; 84484; 85025; 85027; 85610; 85730; 93005; 94640; 99285; J1650; J1940

== ENCOUNTER → 2024-04-07 10:32 | Outpatient (BNV) | payer OTHER, SELFPAY | PROVIDERS: Admitting Provider Internal Medicine; Emergency Provider Emergency Medicine Emergency Medical Services; PCP Nurse Practitioner Primary Care; Visit Provider Internal Medicine Cardiovascular Disease | DX: R06.09 Other forms of dyspnea (principal); I49.3 Ventricular premature depolarization; I44.7 Left bundle-branch block, unspecified | CPT/HCPCS: 93010 ==

== ENCOUNTER → 2024-04-07 16:55 | Outpatient (BNV) | payer OTHER, SELFPAY | PROVIDERS: Admitting Provider Internal Medicine; Emergency Provider Emergency Medicine Emergency Medical Services; PCP Nurse Practitioner Primary Care; Visit Provider Internal Medicine | DX: J96.01 Acute respiratory failure with hypoxia (principal); I50.23 Acute on chronic systolic (congestive) heart failure | CPT/HCPCS: 99223; 99239 ==

== ENCOUNTER 2024-08-24 06:44 | Inpatient (IN) | payer OTHER, SELFPAY ==
[2024-08-24] VITALS (10 sets, daily range): BP systolic 103–138; BP diastolic 58–97; PULSE 67–94; RESP 16–26; TEMP 36–36.8; O2SAT 81–100; BMI 29.0
--- NOTE | ~2024-08-24 | XR_ITS ---
EXAMINATION: XR CHEST 1 VIEW HISTORY: DYSPNEA COMPARISON: Comparison is made with the prior examination dated 04/08/2024. FINDINGS: Two AP portable views of the chest performed at 8:25 AM are submitted. There is prominence of the pulmonary vasculature, consistent with congestion. There is no pneumothorax or pleural effusion. The heart remains enlarged. The bones are intact. XR/XR chest 1V IMPRESSION: Cardiomegaly and mild pulmonary vascular congestion. Electronically signed by: Cecilio Dean MD 08/24/2024 08:39 AM EDT
--- NOTE | ~2024-08-24 | CT_ITS ---
EXAMINATION: CT ANGIOGRAM CHEST CLINICAL INFORMATION: Hypoxemia COMPARISON: Chest radiograph performed same day. CTPA 07/23/2021. TECHNIQUE: Multiple axial images were obtained through the chest after the administration of 50 mL of Omnipaque 350 intravenous contrast. Extensive vascular post-processing including two-dimensional and three-dimensional reformatted images were created and reviewed on an independent workstation. This CT examination was performed using dose optimization techniques as appropriate, variously including the following: *Automated exposure control *Adjustment of mA and/or kV according to patient size (this includes techniques or standardized protocols for targeted exams where dose is matched to indication/reason for exam; i.e. extremities or head) *Use of iterative reconstruction technique FINDINGS: Mild motion degradation of the lung parenchyma, obscuring fine details. QUALITY OF STUDY/CONTRAST BOLUS: Satisfactory. VASCULAR: Enlarged main pulmonary artery suggesting pulmonary arterial hypertension. Diameter estimated at 4.0 cm. No pulmonary embolus within confines of mild motion. Aorta is not enhanced due to contrast phase. No aortic aneurysm or indirect evidence of acute aortic syndrome. Moderate cardiomegaly. Duplicated SVC, draining into the coronary sinus. No pericardial effusion. There is four-chamber enlargement. Reflux of contrast into the hepatic veins suggesting increased right heart pressures. LUNGS: Motion artifact. Within these confines, no definite consolidation or active lung disease. No effusion or pneumothorax. No overt CHF noted. There is linear atelectasis or scarring in the lingular segment. MEDIASTINUM: Global thyroid enlargement extending substernally. This is partially imaged. Normal esophagus. There are non-enlarged mediastinal lymph nodes. There is a solitary enlarged 2.0 cm subcarinal lymph node, nonspecific and unchanged. There is no hilar adenopathy. PLEURA: There is no pleural effusion. No pleural mass or thickening. AXILLA/CHEST WALL: No lymphadenopathy. Mild male gynecomastia bilaterally. UPPER ABDOMEN: 6.7 cm left upper pole renal cyst. Imaged upper abdominal contents otherwise normal. OSSEOUS STRUCTURES: No suspicious lytic or blastic bone lesion. Mild degenerative spinal changes. CT/CT angio chest PE protocol IMPRESSION: 1. Mild respiratory motion degradation. There is no evidence of pulmonary embolus. No indirect evidence of acute aortic syndrome. 2. Enlarged main pulmonary artery with contrast reflux into the hepatic veins, findings suggesting pulmonary hypertension and increased right heart pressures. 3. Moderate four-chamber cardiomegaly. No pericardial effusion. 4. Within confines of respiratory motion, no definite active lung disease or overt CHF. Electronically signed by: Negrito Gonzalez MD 08/24/2024 10:22 AM EDT
--- NOTE | 2024-08-24 07:03 | ECG_ITS ---
Test Reason : SOB Blood Pressure : */* mmHG Vent. Rate : 87 BPM Atrial Rate : 87 BPM P-R Int : 184 ms QRS Dur : 112 ms QT Int : 396 ms P-R-T Axes : 41 -68 61 degrees QTcB Int : 476 ms Normal sinus rhythm Possible Left atrial enlargement Incomplete right bundle branch block Left anterior fascicular block Minimal voltage criteria for LVH, may be normal variant ( [place] product ) Nonspecific T wave abnormality Prolonged QT Abnormal ECG When compared with ECG of 07-Apr-2024 10:50, Premature ventricular complexes are no longer Present Premature atrial complexes are no longer Present Referred By: Kelley Kelly Electronically Signed By: BERNARD GLASER
--- NOTE | 2024-08-24 07:05 | ED_ITS ---
HPI - General Adult General Chief complaint: Dyspnea Stated complaint: heavy breathing Time Seen by Provider: 08/24/24 07:03 History of Present Illness ED Provider: Dr. Kelly HPI narrative: 63 y/o M patient; PMH CHF, alcohol use disorder, cardiomyopathy (EF 25 - 30%, 2021), asthma, TRACI, T2DM, nicotine use, HTN, HLD, hx NSVT (noncompliance with life vest); presents from home with report of shortness of breath for approx the last two days. Associated with a dry, non-productive cough and congestion. Initially the cough was productive but it has since before non-productive. Patient states shortness of breath is especially worse with laying flat and with exertion. He otherwise denies: fever or chills, nausea/vomiting, abdominal pain, chest pain, syncope. He denies any change in his weight or level of lower extremity swelling. Related Data Home Medications ?Medication ?Instructions ?Recorded ?Confirmed fluticasone 250 mcg-salmeterol 50 1 puff inhalation BID 09/16/21 04/07/24 mcg/dose blistr powdr for inhalation (Advair Diskus) empagliflozin 10 mg tablet 25 mg PO DAILY 10/22/21 04/07/24 (Jardiance) metformin 500 mg tablet 500 mg PO BID 10/22/21 04/07/24 cholecalciferol (vitamin D3) 1,250 1,250 mcg PO FR 10/24/21 04/07/24 mcg (50,000 unit) capsule aspirin 81 mg tablet,delayed 81 mg PO DAILY 10/05/23 04/07/24 release (Adult Aspirin Regimen) atorvastatin 40 mg tablet 40 mg PO DAILY 04/07/24 04/07/24 tiotropium bromide 2.5 2 puff inhalation QAM 04/07/24 04/07/24 mcg/actuation mist for inhalation (Spiriva Respimat) Previous Rx's ?Medication ?Instructions ?Recorded furosemide 40 mg tablet 40 mg PO BID@0900,1800 #60 tabs 09/19/21 spironolactone 25 mg tablet 25 mg PO DAILY #30 tabs 09/19/21 sacubitril 49 mg-valsartan 51 mg 1 tab PO BID #60 tabs 09/23/23 tablet (Entresto) albuterol sulfate 90 mcg/actuation 1 inh inhalation Q4-6H PRN 04/08/24 breath activated powder shortness of breath or wheezing #1 inhaler,sensor ea metoprolol succinate 50 mg 50 mg PO DAILY #30 tabs 06/29/24 tablet,extended release 24 hr (Toprol XL) Allergies Allergy/AdvReac Type Severity Reaction Status Date / Time penicillin V Allergy Severe Swollen Verified 08/24/24 07:01 face Penicillins [PENICILLINS] Allergy Severe ANGIOEDEMA Verified 08/24/24 07:01 shellfish derived Allergy Severe ANAPHYLAXIS Verified 08/24/24 07:01 [SHELLFISH DERIVED] Review of Systems 2 Review of Systems: Yes all other systems are reviewed and are negative PMFSH Past Medical History Attestation statement: The following information was validated with the patient. Source: old records reviewed Medical History Asthma Smoker New onset type 2 diabetes mellitus Tobacco abuse Chronic HFrEF (heart failure with reduced ejection fraction) Streptococcus infection, group G Hypertension RVH (right ventricular hypertrophy) Tobacco abuse Elevated troponin Bacteremia Asthma Surgical History S/P cardiac catheterization Hx of appendectomy Family History Family History Mother Breast cancer Social History Social History Household Members: Children Household Members Other:: Daughter Housing: Apartment Do you presently have visiting nurse or other home services: No Alcohol intake: current Alcohol intake frequency: a few times a week Alcohol type: beer and hard liquor Patient Tobacco Use Status: Current everyday Tobacco user Tobacco use type: Cigarette Cigarette Packs Per Day: 0.5 Cigarettes Per Day: 5 Years Smoked: 25 Smoked in Last 30 Days: Yes e-Cigarette/Vaping Use: Never Used Second Hand Smoke Exposure: Yes Use of substances other than those prescribed or required for medical reasons: No Substance Use Type: Marijuana Advance Directives: Yes Advance Directives on File: Yes Advance Directives Date on File: 02/27/21 Do you have a plan to hurt others: No Plan service: No Current occupational status: employed Physical Exam ED Vital Signs: Vital Signs - 24 hr 08/24/24 06:59 08/24/24 07:34 08/24/24 08:34 Temperature 97.9 F 98.3 F Pulse Rate 87 78 67 Respiratory Rate 26 H 24 H 22 H Blood Pressure 138/87 113/73 Pulse Oximetry 81 L 95 Oxygen Delivery Method Room Air Oxymask Oxygen Flow Rate 2 08/24/24 10:06 08/24/24 10:09 Temperature Pulse Rate 83 Respiratory Rate 24 H Blood Pressure 127/80 Pulse Oximetry 88 L 94 Oxygen Delivery Method Oxymask Oxymask Oxygen Flow Rate 2 4 BMI result Body Mass Index 29.0 Patient is afebrile, hemodynamically stable, saturating 81% on RA with tachypnea. Const General: cooperative HENMT Head: Yes normal to inspection and Yes atraumatic Eyes General: appearance normal, both eyes and all related structures Pupils: Equal, round and reactive pupils present EOM: EOMs intact bilaterally Neck Neck: Yes normal visual inspection, Yes full ROM, Yes supple and No tender Chest Chest palpation & inspection: normal inspection of the chest and normal palpation of entire chest wall Resp Other: Harsh non-productive cough, diffuse rhonchi bilaterally Effort & Inspection: normal respiratory effort and able to speak in complete sentences Cardio Rate: regular rate Rhythm: regular rhythm Peripheral pulses: Peripheral pulses 2+ throughout GI Inspection: Yes normal to inspection, No Abdominal wall edema and No distended Palpation (GI): Soft to palpation, not firm, nontender, no guarding and not rigid Auscultation: normal bowel sounds Back/Spine/Pelvis Back: No back tenderness Neuro Cranial nerves: Yes Equal, round and reactive pupils present Extrem Other: 1+ bilateral lower extremity swelling Course Course Course Narrative: Patient is afebrile, hypoxic on RA, hemodynamically stable. Ordered for EKG, CXR, respiratory swab, and laboratory studies. Ordered for ED bronchodilator protocol and IV Solu-Medrol 125mg. Labs reviewed. No leukocytosis. No anemia. Troponin 85.1 (prior 100.4 on 04/07/2024) BNP 673. Utox positive for cocaine. COVID/Flu/RSV negative. CXR consistent with cardiomegaly and mild pulmonary congestion. I did provide Lasix 40mg IV. Patient's degree of hypoxia is not compatible with his chest XR. Ordered for CTA Chest. Repeat troponin 91.7. CTA is unremarkable for pulmonary emboli. Plan: Admit to hospitalist for likely viral illness super-imposed on CHF. Condition: Guarded Medications Administered Discontinued Medications Generic Name Dose Route Start Last Admin Trade Name Josselin PRN Reason Stop Dose Admin Albuterol Sulfate 5 mg/ 0 mg 08/24/24 07:30 08/24/24 07:31 Albuterol/Ipratropium 3 ml INHALE 08/24/24 07:31 1 each ONCE ONE Administration Iohexol 100 ml 08/24/24 09:24 08/24/24 09:25 Iohexol 350 Mg/Ml 100 Ml Infus..Btl IV 08/24/24 09:25 65 ml ONCE ONE Administration Methylprednisolone Sodium Succinate 125 mg 08/24/24 07:20 08/24/24 07:30 Methylprednisolone Sod Succ 125 Mg/2 Ml Vial IVPUSH 08/24/24 07:21 125 mg ONCE ONE Administration Medical Decision Making Lab Data 08/24/24 07:09 08/24/24 07:09 Labs: Lab Results 08/24/24 08/24/24 08/24/24 Range/Units 07:09 07:42 08:38 WBC 6.6 (4.8-10.8) X10*3/uL RBC 5.00 (4.60-5.80) X10*6/uL Hgb 15.9 (14.0-18.0) g/dl Hct 47.6 (42.0-52.0) % MCV 95.2 (80.0-98.0) fL MCH 31.8 (27.0-33.0) pg MCHC 33.4 (31.0-36.0) g/dl RDW 14.3 (11.0-16.0) % Plt Count 169 (160-400) X10*3/uL MPV 9.5 (9.4-12.4) fL Immature Gran % (Auto) 0.3 (0.0-0.4) % Neut % (Auto) 70.3 (45-73) % Lymph % (Auto) 16.4 L (20-40) % Bartholomew % (Auto) 10.7 (2-11) % Eos % (Auto) 1.8 (0-4) % Baso % (Auto) 0.5 (0-2) % Lymph # (Auto) 1.1 L (1.2-4.9) X10*3/uL Bartholomew # (Auto) 0.7 (0.1-1.2) X10*3/uL Eos # (Auto) 0.1 (0.0-0.4) X10*3/uL Baso # (Auto) 0.0 (0.0-0.2) X10*3/uL Abs Immat Gran (auto) 0.02 (0.00-0.03) X10*3/uL Absolute Neuts (auto) 4.6 (2.0-8.3) x10*3/uL Absolute Nucleated RBC 0.000 (0.0-0.012) X10*3/uL Nucleated RBC % (auto) 0.0 (0.0-0.2) /100WBC Sodium 143 (135-145) mmol/L Potassium 4.4 (3.3-5.1) mmol/L Chloride 107 (96-108) mmol/L Carbon Dioxide 28 (22-29) mmol/L Anion Gap 12 (12-20) BUN 19 H (9-16) mg/dL Creatinine 1.07 (0.5-1.4) mg/dL Estim Creat Clear Calc 82.8 Estimated GFR > 60 Random Glucose 163 H (60-115) mg/dL Calcium 9.5 (8.4-10.2) mg/dL Total Bilirubin 0.4 (0.0-1.0) mg/dL Direct Bilirubin 0.2 (0.0-0.5) mg/dL AST 33 (5-37) U/L ALT 24 (0-40) U/L Alkaline Phosphatase 81 (39-117) U/L Troponin I High Sens 85.1 H 91.7 H (<3.5-35.0) ng/L B-Natriuretic Peptide 673 H (<100) pg/mL Total Protein 8.1 H (6.5-8.0) g/dL Albumin 4.2 (3.5-5.0) g/dL Lipase 24 (8-78) U/L Urine Opiates Screen Not Detected (Not Detect) Ur Buprenorphine Scrn Not Detected (Not Detect) ng/mL Ur Oxycodone Screen Not Detected (Not Detect) ng/mL Urine Methadone Screen Not Detected (Not Detect) ng/mL Urine Fentanyl Screen Not Detected (Not Detect) Ur Barbiturates Screen Not Detected (Not Detect) Ur Phencyclidine Scrn Not Detected (Not Detect) Ur Amphetamines Screen Not Detected (Not Detect) U Benzodiazepines Scrn Not Detected (Not Detect) Urine Cocaine Screen POSITIVE H (Not Detect) U Marijuana (THC) Screen Not Detected (Not Detect) Ethyl Alcohol < 10 mg/dL Influenza Type A (PCR) NEGATIVE (Negative) Influenza Type B (PCR) NEGATIVE (Negative) RSV RNA Qual (PCR) NEGATIVE (Negative) SARS-CoV-2 RNA (RT-PCR) NEGATIVE (Negative) Independent Interpretation I performed an independent interpretation of an: EKG Interpretation: NSR 87BPM with LAFB, elevations in V2 - V3. Compared to prior EKG from 10/05/2023 and no significant abnormalities. Radiology Impression Discussion of test interpretation with radiology: I have reviewed the radiologist's reading. Radiologist Impression: EXAMINATION: XR CHEST 1 VIEW HISTORY: DYSPNEA COMPARISON: Comparison is made with the prior examination dated 04/08/2024. FINDINGS: Two AP portable views of the chest performed at 8:25 AM are submitted. There is prominence of the pulmonary vasculature, consistent with congestion. There is no pneumothorax or pleural effusion. The heart remains enlarged. The bones are intact. XR/XR chest 1V IMPRESSION: Cardiomegaly and mild pulmonary vascular congestion. Electronically signed by: Cecilio Dean MD 08/24/2024 08:39 AM EDT Report Number: [id number]: Total DLP = 329.00 mGy-cm EXAMINATION: CT ANGIOGRAM CHEST CLINICAL INFORMATION: Hypoxemia COMPARISON: Chest radiograph performed same day. CTPA 07/23/2021. TECHNIQUE: Multiple axial images were obtained through the chest after the administration of 50 mL of Omnipaque 350 intravenous contrast. Extensive vascular post-processing including two-dimensional and three-dimensional reformatted images were created and reviewed on an independent workstation. This CT examination was performed using dose optimization techniques as appropriate, variously including the following: *Automated exposure control *Adjustment of mA and/or kV according to patient size (this includes techniques or standardized protocols for targeted exams where dose is matched to indication/reason for exam; i.e. extremities or head) *Use of iterative reconstruction technique FINDINGS: Mild motion degradation of the lung parenchyma, obscuring fine details. QUALITY OF STUDY/CONTRAST BOLUS: Satisfactory. VASCULAR: Enlarged main pulmonary artery suggesting pulmonary arterial hypertension. Diameter estimated at 4.0 cm. No pulmonary embolus within confines of mild motion. Aorta is not enhanced due to contrast phase. No aortic aneurysm or indirect evidence of acute aortic syndrome. Moderate cardiomegaly. Duplicated SVC, draining into the coronary sinus. No pericardial effusion. There is four-chamber enlargement. Reflux of contrast into the hepatic veins suggesting increased right heart pressures. LUNGS: Motion artifact. Within these confines, no definite consolidation or active lung disease. No effusion or pneumothorax. No overt CHF noted. There is linear atelectasis or scarring in the lingular segment. MEDIASTINUM: Global thyroid enlargement extending substernally. This is partially imaged. Normal esophagus. There are non-enlarged mediastinal lymph nodes. There is a solitary enlarged 2.0 cm subcarinal lymph node, nonspecific and unchanged. There is no hilar adenopathy. PLEURA: There is no pleural effusion. No pleural mass or thickening. AXILLA/CHEST WALL: No lymphadenopathy. Mild male gynecomastia bilaterally. UPPER ABDOMEN: 6.7 cm left upper pole renal cyst. Imaged upper abdominal contents otherwise normal. OSSEOUS STRUCTURES: No suspicious lytic or blastic bone lesion. Mild degenerative spinal changes. CT/CT angio chest PE protocol IMPRESSION: 1. Mild respiratory motion degradation. There is no evidence of pulmonary embolus. No indirect evidence of acute aortic syndrome. 2. Enlarged main pulmonary artery with contrast reflux into the hepatic veins, findings suggesting pulmonary hypertension and increased right heart pressures. 3. Moderate four-chamber cardiomegaly. No pericardial effusion. 4. Within confines of respiratory motion, no definite active lung disease or overt CHF. Electronically signed by: Negrito Gonzalez MD 08/24/2024 10:22 AM EDT Discharge Plan Discharge Clinical Impression: Cocaine abuse, Alcohol abuse, Heart failure with reduced ejection fraction, Asthma exacerbation in COPD, CHF exacerbation, Pulmonary HTN, Acute hypoxic respiratory failure Patient Disposition: Admitted As Inpatient Print Language: Lao
--- NOTE | 2024-08-24 07:15 | PC.NURSE ---
pt is alert and oriented, skin appropriate for ethnicity, respirations slightly labored breathing between 22-26, ls diminished pt does have a very junky cough-pt reports coughing and feeling congested x2 days and reports fevers at home, ns on the monitor and currently sating well on a oxymask at 7L 97%.
[2024-08-24 07:19] LABS: MANUAL DIFF FLAG NO
[2024-08-24 07:22] LABS: Basophils Percent Auto 0.5 % (0-2); Eosinophils Absolute Auto 0.1 X10*3/uL (0.0-0.4); Eosinophils Percent Auto 1.8 % (0-4); Hematocrit 47.6 % (42.0-52.0); Hemoglobin 15.9 g/dl (14.0-18.0); Imm Gran Abs Auto 0.02 X10*3/uL (0.00-0.03); Imm Gran Pct Auto 0.3 % (0.0-0.4); Lymphocytes Absolute Auto 1.1 X10*3/uL (1.2-4.9); Lymphocytes Percent Auto 16.4 % (20-40); Mean Corpuscular HGB Conc 33.4 g/dl (31.0-36.0); Mean Corpuscular Hemoglobin 31.8 pg (27.0-33.0); Mean Corpuscular Volume 95.2 fL (80.0-98.0); Mean Platelet Volume 9.5 fL (9.4-12.4); Monocytes Absolute Auto 0.7 X10*3/uL (0.1-1.2); Monocytes Percent Auto 10.7 % (2-11); Neutrophils Absolute Auto 4.6 x10*3/uL (2.0-8.3); Neutrophils Percent Auto 70.3 % (45-73); Platelet Count 169 X10*3/uL (160-400); Red Cell Distribution Width 14.3 % (11.0-16.0); White Blood Count 6.6 X10*3/uL (4.8-10.8)
[2024-08-24] MEDS: methylPREDNISolone Sod Succ 125 MG/2 ML VIAL IVPUSH (07:30)
[2024-08-24] MEDS: Albuterol Sulfate 5 MG, Albuterol/Iprat 2.5/0.5MG 3 ML 3 ML INHALE (07:31)
[2024-08-24 07:36] LABS: Alanine Aminotransferase 24 U/L (0-40); Albumin Level 4.2 g/dL (3.5-5.0); Alkaline Phosphatase 81 U/L (39-117); Anion Gap 12 (12-20); Aspartate Amino Transferase 33 U/L (5-37); Bilirubin Direct 0.2 mg/dL (0.0-0.5); Bilirubin Total 0.4 mg/dL (0.0-1.0); Blood Urea Nitrogen 19 mg/dL (9-16); Calcium 9.5 mg/dL (8.4-10.2); Carbon Dioxide 28 mmol/L (22-29); Chloride 107 mmol/L (96-108); Creatinine Clr Calc Pharmacy 82.8; Estimated Glomerular Filt Rate > 60; Glucose Random 163 mg/dL (60-115); Lipase 24 U/L (8-78); Potassium 4.4 mmol/L (3.3-5.1); Sodium 143 mmol/L (135-145); Total Protein 8.1 g/dL (6.5-8.0)
[2024-08-24 07:41] LABS: B Type Natriuretic Peptide 673 pg/mL (<100)
--- OUTSIDE RECORDS SUMMARY | 2024-08-24 07:41 | XMS_ITS | Encounter Summary ---
Author Organization [employer] Address [address] [facility] 7t [place] [address] Care Team Providers Care Airport Duty Manager Name Role Phone Veronique Gastelum Primary Care Provider [phone] Aguila Portillo MD Unavailable [phone] Encounter Details Date Type Department Care Team (Late st Contact Info) Description 07/21/2022 Orders Only [facility] MED & PEDS [address] [place] [address] Billie Morales LPN Social History Tobacco Use Types Packs/Day Years Used Date Smoking Tobacco: Never Assessed Sex and Gender Information Value Date Recorded Sex Assigned at Male 04/13/2022 10:18 AM EDT Legal Sex Male 10:18 AM EDT Gender Identity Male 04/13/2022 10:18 AM EDT Sexual Orientation Choose not to disclose 2021 10:18 AM EDT documented as of this encounter Plan of Treatment Not on file documented as of this encounter Visit Diagnoses Not on filedocumented in this encounter Care Teams Airport Duty Manager Relationship Specialty Start Date End Date Veronique Gastelum ANP [address] [place] [address] PCP - General Family Medicine 05/29/21 Aguila Portillo MD [address] [place] [address] [address] [place] [address] Cardiology 05/24/24 documented as of this encounter
--- OUTSIDE RECORDS SUMMARY | 2024-08-24 07:41 | XMS_ITS | Encounter Summary ---
Author Organization [employer] Address [address] [facility] 7t [place] [address] Care Team Providers Care Actuarial Technician Name Role Phone Veronique Gastelum Primary Care Provider [phone] Aguila Portillo MD Unavailable [phone] Encounter Details Date Type Department Care Team (Late st Contact Info) Description 06/25/2022 Orders Only [facility] MEDICINE [address] [place] [address] Saritha Kelley LPN Social History Tobacco Use Types Packs/Day [...] on filedocumented in this encounter Care Teams Actuarial Technician Relationship Specialty Start Date End Date Veronique Gastelum ANP [address] [place] [address] PCP - General Family Medicine 05/29/21 Aguila Portillo MD [address] [place] [address] Drive [address] [place] [address] Cardiology 05/24/24 documented as of this encounter
--- OUTSIDE RECORDS SUMMARY | 2024-08-24 07:41 | XMS_ITS | Clinical Summary ---
Author Organization [employer] Address 75 [facility] 7t [place] [address] Care Team Providers Care Slack Line Yarder Name Role Phone Veronique Gastelum Primary Care Provider [phone] Aguila Portillo MD Unavailable [phone] Allergies Active Allergy Reactions Criticality Noted Date Comments Penicillins 08/20/2016 Shellfish-Derived Products 7 Medications ipratropium-albu terol (Duo-Neb) 0.5-2.5 mg/3 mL nebulizer solutionIndicati ons:Moderate persistent asthma without complication INHALE 1 AMPULE USING A NEBULIZER EVERY 6 HOURS NEEDED FOR WHEEZING OR SHORTNESS OF BREATH 180 mL 3 3 Active Entresto 49-51 MG tablet TAKE 1 TABLET BY MOUTH TWICE DAILY IN THE MORNING AND IN THE EVENING 3 Active ceramides (CeraVe) moisturizing creamIndications :Dry skin Apply 1 application topically 2 times daily. 453 g 11 3 Active spironolactone (Aldactone) 25 MG tabletIndication s:Congestive heart failure, unspecified HF chronicity, unspecified heart failure type (CMS/HCC) TAKE 1 TABLET BY MOUTH EVERY MORNING 90 tablet 3 4 Active furosemide (Lasix) 40 MG tabletIndication s:Congestive heart failure, unspecified HF chronicity, unspecified heart failure type (CMS/HCC) TAKE 1 TABLET BY MOUTH TWICE DAILY IN THE MORNING AND IN THE EVENING 180 tablet 3 4 Active aspirin (Aspirin Adult Low Strength) 81 MG EC tabletIndication s:Chronic systolic congestive heart failure (CMS/HCC) TAKE 1 TABLET BY MOUTH EVERY MORNING 90 tablet 3 4 Active Misc. Devices (Fingertip Pulse Oximeter) miscIndications: COPD exacerbation (CMS/HCC) Use to check O2, go to ER or call 911 if < 92% and not better w/ albuterol 1 each 4 Active ergocalciferol (Vitamin D2) 1.25 MG (44286 UT) capsule TAKE 1 CAPSULE BY MOUTH ONCE WEEKLY ON WEDNESDAY MORNING 12 capsule 1 4 Active metoprolol succinate XL (Toprol-XL) 25 MG 24 hr tablet TAKE 1 TABLET BY MOUTH EVERY MORNING 90 tablet 1 4 Active empagliflozin (Jardiance) 25 MG TAKE 1 TABLET BY MOUTH EVERY MORNING 90 tablet 1 4 Active metFORMIN (Glucophage) 500 MG tabletIndication s:Hypertension associated with diabetes (CMS/HCC) (CMS/HCC) TAKE 1 TABLET BY MOUTH TWICE DAILY IN THE MORNING AND IN THE EVENING 180 tablet 1 4 Active Spiriva Respimat 2.5 MCG/ACT inhalerIndicatio ns:Chronic obstructive pulmonary disease, unspecified COPD type (CMS/HCC) INHALE 2 PUFFS EVERY MORNING 4 g 11 4 Active Ventolin HFA 108 (90 Base) MCG/ACT inhalerIndicatio ns:Chronic obstructive pulmonary disease, unspecified COPD type (CMS/HCC),Modera te persistent asthma without complication INHALE 2 PUFFS EVERY 4 HOURS NEEDED FOR WHEEZING OR SHORTNESS OF BREATH 18 g 3 4 Active atorvastatin (Lipitor) 40 MG tabletIndication s:Hyperlipidemia associated with type 2 diabetes mellitus (CMS/HCC) ([facility]) TAKE 1 TABLET BY MOUTH EVERY MORNING 90 tablet 3 4 Active FREESTYLE LITE test stripIndications :Diabetes mellitus with coincident hypertension (CMS/HCC) ([facility]) TEST BLOOD SUGAR TWICE DAILY 50 strip 11 5 Active Fluticasone-Salm eterol (Advair Diskus) 250-50 MCG/ACT aerosol powderIndication s:Moderate persistent asthma without complication Inhale 1 puff 2 times daily. INHALE 1 PUFF BY MOUTH TWICE DAILY IN THE MORNING AND IN THE EVENING 12 HOURS APART. RINSE MOUTH AFTER USING. 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 Spironolactone 25mg daily Valsartan 160mg twice daily (HFrEF) Metoprolol Succ XL 25mg once daily (HFrEF) Furosemide 40mg twice daily (HFrEF) Jardiance 25mg daily (Diabetes/HFrEF) 11/05/21 stress test Echo 09/17/2021 Echo 01/22/23 Conclusions: - Moderately increased left ventricular cavity size. There is normal left ventricular wall thickness. The left ventricular systolic function is moderate to severely decreased. The visually estimated ejection fraction is between 25-30%. - E/E prime ratio is >15, consistent with elevated filling pressures. - Mildly increased right ventricular cavity size. There is borderline right ventricular systolic function. - There is mild dilatation of the sinuses of Valsalva measuring 4.13 cm and mild dilatation of the ascending aorta measuring 3.80 cm. EKG 12/24/22 Essential hypertension 09/08/2022 Obstructive sleep apnea 09/08/2022 Cigarette smoker 09/08/2022 Diabetes mellitus with coincident hypertension ( CMS/HCC) 09/08/2022 Vitamin D deficiency 09/08/2022 Hyperlipidemia associated wi th type 2 diabetes mellitus ([facility]/HCC) 08/20/2016 Resolved Problems Problem Noted Date Diagnosed Date Resolved Date Cocaine abuse 08/20/2016 03/16/2023 Encounters Date Type Department Care Team Description 06/22/2024 Refill [facility] MED [facility] PEDS [address] [place] [address] Radhika Kim MD Moderate persistent asthma without complication 06/22/2024 Refill [facility] [address] [place] [address] Veronique Gastelum ANP Diabetes mellitus with coincident hypertension (CMS/HCC) ([facility]); Moderate persistent asthma without complication 06/05/2024 Refill [facility] [address] [place] [address] Veronique Gastelum ANP Hyperlipidemia associated with type 2 diabetes mellitus (CMS/HCC) (CMS/HCC) from Last 3 Months Immunizations Name Administration Dates Next Due Pfizer Covid-19 Vaccine 12+ 06/12/2021 Td (adult), 5 Lf tetanus tox oid, preservative free, adsorbed 02/24/2016 Tdap 05/13/2017 Social History Tobacco Use Types Packs/Day Years Used Date Smoking Tobacco: Every Day Cigarettes Smokeless Tobacco: Never Tobacco Cessation:Ready to Q uit: Not Asked; Counseling Given: Not Answered Alcohol Use Standard Drinks/Week Comments Yes 0 (1 standard drink = 0.6 oz pur e alcohol) Housing Stability Answer Date Recorded What is your housing situation today? I have ger damon 04/01/[address] you li ve. Do you have problems with any of the following? None of the above 04/01/2023 Food Insecurity Answer Date Recorded Within the past 12 months, y ou worried that your food would run out before you got money to buy more: Never True 04/01/2023 Within the past 12 months,th e food you bought just didn't last and you didn't have enough money to get more: Never True Transportation Answer Date Recorded In the past 12 months, has l ack of transportation kept you from medical appts, meetings, work or from getting things needed for daily living? No 04/01/2023 Utilities Answer Date Recorded In the past 12 months, has t he electric, gas, oil or water company threatened to shut off services in your home? No 04/01/2023 Depression Answer Date Recorded Patient Health Questionnaire-2 Score 0 11/05/2022 Sex and Gender Information Value Date Recorded Sex Assigned at Male 04/13/2022 10:18 AM EDT Legal Sex Male 10:18 AM EDT Gender Identity Male 04/13/2022 10:18 AM EDT Sexual Orientation Choose not to disclose 2021 10:18 AM EDT Last Filed Vital Signs Vital Sign Reading Time Taken Comments Blood Pressure 135/89 08/27/2023 1:16 PM EDT Pulse 85 08/27/2023 1:16 PM EDT Temperature 36.4 ??C (97.5 ??F) 08/27/2023 1:16 PM ED T Respiratory Rate 10 08/27/2023 1:16 PM EDT Oxygen Saturation 92% 08/27/2023 1:16 PM EDT Inhaled Oxygen Concentration - - Weight 92.3 kg (203 lb 6.4 oz) 08/27/2023 1:16 P M EDT Height 175.3 cm (5' 9 ) 08/27/2023 1:16 PM EDT Body Mass Index 30.04 08/27/2023 1:16 PM EDT Plan of Treatment Health Maintenance Due Date Last Done Comments CT Colonography 1960 Colonoscopy 1960 Colorectal Cancer Screening 1960 FIT DNA/Cologuard 1960 FIT 1960 FOBT 1960 Sigmoidoscopy 1960 Diabetes: Foot Exam 1970 Eye Exam 1970 Alcohol/Substance Use Screening 1972 Pneumococcal Vaccine: 50+ Years (1 of 2 - PCV) 09/30/1979 Zoster Vaccines (1 of 2) 2010 RSV Patients and Patients Aged 60 years or older (1 - Risk 60-74 years 1-dose series) 2020 Diabetes: Urine Protein Screening 07/22/2022 07/22/2021 Depression Screening 11/06/2023 11/05/2022, 11/06/19 23 SDOH Screening 11/06/2023 11/05/2022 Diabetes: Hemoglobin A1C 11/27/2023 024, 05/04/2023, 11/05/2022, Additional history exists COVID-19 Vaccine (2 - season) 2024 06/12/2021 Influenza Vaccine (#1) 2024 Lipid Panel 03/08/2024 03/08/2023, 07/22/2021 Tobacco Screening 08/26/2024 08/27/2023 DTaP/Tdap/Td Vaccines (2 - Td or Tdap) 05/13/2027 05/13/2017, 02/24/2016 HIV Screening Completed 07/22/2021 Hepatitis C Screening Completed 07/22/2021 HIB Vaccines Aged Out No longer eligi ble based on patient's age to complete this topic HPV Vaccines Aged Out No longer eligi ble based on patient's age to complete this topic Hepatitis A Vaccines Aged Out No long er eligible based on patient's age to complete this topic Hepatitis B Vaccines Aged Out No long er eligible based on patient's age to complete this topic IPV Vaccines Aged Out No longer eligi ble based on patient's age to complete this topic Meningococcal Vaccine Aged Out No ehsan bianca eligible based on patient's age to complete this topic RSV under 20 months Aged Out No longe r eligible based on patient's age to complete this topic Rotavirus Vaccines Aged Out No longer eligible based on patient's age to complete this topic Procedures Procedure Name Priority Date/Time Associated Diagnosis Comments POCT GLYCATED HEMOGLOBIN, TOTAL Routine 08/27/2023 1:27 PM EDT Diabetes mellitus with coincident hypertension (CMS/HCC) LIPID PANEL, STANDARD Routine 03/08/2023 1:17 PM EDT ZZZ HISTORICAL HEPATITIS C AB W/REFL TO HCV RNA, QN, PCR Routine 07/22/2021 4:23 PM EST HIV 1/2 ANTIGEN/ANTIBODY, FOURTH GENERATION W/RFL Routine 07/22/2021 4:23 PM EST ALBUMIN, RANDOM URINE W/CREATININE Routine 07/22/2021 4:23 PM EST from Last 3 Months or Most Recently Relevant to Health Maintenance Results * (ABNORMAL) POCT HGB A1C (08/27/2023 1:27 PM EDT) Hemoglobin A1C 7.6(A) 4.0 - 6.0 % QC Media Lot # [id number] Lot# Expiration Date Blood 08/27/2023 1:27 PM EDT us Veronique [facility] POINT OF CARE TEST ENTER/EDIT OR DERABLES Final Result * (ABNORMAL) Lipid Panel, Standard (03/08/2023 1:17 PM EDT) Triglycerides 229(H) <150 mg/dL [facility] Comment:Desirable Triglyceri de: less than 150 mg/dLBorderline High Triglyceride 150-199 mg/dLHigh Triglyceride: 200-499 mg/dLVery High Triglyceride: greater than or equal to 5OO mg/dL Cholesterol 281(H) <200 mg/dL [facility] Comment:Desirable Cholestero l: less than 200 mg/dLBorderline High Cholesterol: 200-239 mg/dLHigh Cholesterol: greater than 239 mg/dL LDL Cholesterol Calculated 182(H) <100 mg/dL [facility] Comment:Desirable LDL: less than 100 mg/dLNear Optimal/Above Optimal LDL: 110- 129 mg/dLBorderline High LDL: 130-159 mg/dLHigh LDL: 160-189 mg/dLVery High LDL: greater than or equal to 190 mg/dL HDL Cholesterol 54 >40 mg/dL [facility] Comment:Desirable HDL: great er than 40 mg/dL Note: This HDL assay may give artificially low results in patients with liver disease. 03/08/2023 1:1 7 PM EDT 03/08/2023 1:17 PM EDT us Generic External Data Provider LAB BLOOD ORDERAB LES Final Result [facility] [address] [place] [phone] * HEPATITIS C AB W/REFL TO HCV RNA, QN, PCR (07/22/2021 4:23 PM EST) HEPATITIS C ANTIBODY NON-REACT [facility] NON-REACT [facility] INDEX 0.05 <1.00 [facility] Comment: ?? HCV antibody was non-reactive. There is no laboratory ?? evidence of HCV infection. ?? In most cases, no further action is required. However, if recent HCV exposure is suspected, a test for HCV RNA (test code 41316) is suggested. ?? For additional information please refer to http://education.[employer].com/faq/ZAZ79w4 (This link is being provided for informational/ educational purposes only.) ?? 07/22/2021 4:23 PM EST us Veronique Gastelum ANP HISTORICAL/NON ORDERABLE LABS Fi nal Result Performing Organization Address [facility] de Phone Number [facility] [address] * (ABNORMAL) ALBUMIN, RANDOM URINE W/CREATININE (07/22/2021 4:23 PM EST) Microalbumin Urine 74.2 See Note: mg/dL [facility] Comment: Reference Range: ?? Reference Range Not established Verified by repeat analysis. ?? Microalb/Creat Ratio 422(H) <30 mcg/mg creat [facility] Comment: ?? The ADA defines abnormalities in albumin excretion as follows: ?? Albuminuria Category ?Result (mcg/mg creatinine) ?? Normal to Mildly increased ?? <30 Moderately increased ? 30-299 ?? Severely increased ? > OR = 300 ?? The ADA recommends that at least two of three specimens collected within a 3-6 month period be abnormal before considering a patient to be within a diagnostic category. Creatinine, Urine 176 20 - 320 mg/dL [facility] 07/22/2021 4:23 PM EST us Veronique Gastelum ANP LAB URINE ORDERABLES Final Resul t Performing Organization Address [facility] Phone Number [facility] [address] [place] [address], * HIV 1/2 ANTIGEN/ANTIBODY,FOURTH GENERATION W/RFL (07/22/2021 4:23 PM EST) HIV-1/2 ANTIGEN AND ANTIBODIES, 4TH GENERATION W/ REFLEX NON-REACT [facility] NON-REACT [facility] Comment: HIV-1 antigen and HIV-1/HIV-2 antibodies were not detected. There is no laboratory evidence of HIV infection. ?? PLEASE NOTE: This information has been disclosed to you from records whose confidentiality may be protected by state law. ??If your state requires such protection, then the state law prohibits you from making any further disclosure of the information without the specific written consent of the person to whom it pertains, or as otherwise permitted by law. A general authorization for the release of medical or other information is NOT sufficient for this purpose. ? For additional information please refer to http://Shoto.DreamCloset.com/faq/CFA765 (This link is being provided for informational/ educational purposes only.) ? The performance of this assay has not been clinically validated in patients less than 2 years old. ?? 07/22/2021 4:23 PM EST us Veronique R[facility] LAB BLOOD ORDERABLES Final Resul t [facility] [address] from Last 3 Months or Most Recently Relevant to Health Maintenance Insurance C3 HSN FULL Care Teams Slack Line Yarder Relationship Specialty Start Date End Date Veronique Gastelum ANP [address] [place] [id number] PCP - General Family Medicine 05/29/21 Aguila Portillo MD [address] [place] [address] 3rd [place] [address] Cardiology 05/24/24
--- OUTSIDE RECORDS SUMMARY | 2024-08-24 07:41 | XMS_ITS | Encounter Summary ---
Author Organization [employer] Address [address] [facility] 7t [place] [address] Care Team Providers Care Mangle Catcher Name Role Phone Veronique Gasteulm Primary Care Provider [phone] Aguila Portillo MD Unavailable [phone] Encounter Details Date Type Department Care Team (Late st Contact Info) Description 08/20/2022 Orders Only [facility] MED & PEDS [address] [place] [address] Billie Morales LPN Social History Tobacco Use [...] on filedocumented in this encounter Care Teams Mangle Catcher Relationship Specialty Start Date End Date Veronique Gastelum ANP [address] [place] [id number] PCP - General Family Medicine 05/29/21 Aguila Portillo MD [address] [place] [address] [address] [place] [address] Cardiology 05/24/24 documented as of this encounter
[2024-08-24 07:43] LABS: Troponin-I High Sensitivity 85.1 ng/L (<3.5-35.0)
[2024-08-24 08:00] LABS: Influenza A PCR NEGATIVE (Negative); Influenza B PCR NEGATIVE (Negative); Resp Syncy Virus RNA Qual PCR NEGATIVE (Negative); SARS COV2 PCR INHOUSE NEGATIVE (Negative)
[2024-08-24 08:13] LABS: Amphetamine Screen Urine Not Detected (Not Detect); Barbiturates, Urine Not Detected (Not Detect); Benzodiazepines Screen Urine Not Detected (Not Detect); Buprenorphine Scr Not Detected (Not Detect); Cannabinoid Screen Urine Not Detected (Not Detect); Cocaine Screen Urine POSITIVE (Not Detect); Fentanyl, urine Not Detected (Not Detect); Methadone Screen, Urine Not Detected (Not Detect); Opiate Screen Urine Not Detected (Not Detect); Oxycodone Screen Urine Not Detected (Not Detect); Phencyclidine Screen Urine Not Detected (Not Detect)
[2024-08-24 09:02] LABS: Ethanol < 10 mg/dL
[2024-08-24 09:11] LABS: Troponin-I High Sensitivity 91.7 ng/L (<3.5-35.0)
[2024-08-24] MEDS: iohexoL 350 MG/ML 100 ML INFUS..BTL IV (09:25)
--- NOTE | 2024-08-24 10:07 | PC.NURSE ---
pt resting in the stretcher, slightly labored breathing and sating 88% on the 2l via oxymask, pt increased to 4L and sating at 94%
[2024-08-24] MEDS: Furosemide 40 MG/4 ML VIAL IVPUSH ×2 (10:52→17:09)
--- NOTE | 2024-08-24 11:14 | PHA.MEDREC ---
Addendum entered by Landon Mcneil [facility] 08/24/24 11:45: MED REC CHECKED BY [facility] - ADDED INHALERS Original Note: Pharmacy Consult ? Medication Reconciliation Pharmacy has completed the medication reconciliation. Spoke to patient to confirm med list. Patient had a little blister pack with a days dose of medications. Called [facility] pharmacy to confirm patients medications. Jerry at [facility] pharmacy and he confirmed patient hasn't picked up [facility] since June 22 2023 and all medications was for 30 days only. Confirmed med list because patient states he took his medications this morning.
--- NOTE | 2024-08-24 11:15 | P.HPHOSP_ITS ---
History of Present Illness Date of Service: 08/24/24 Attending physician on admission: Jose E Lilly Chief Complaint: SOB Pt is a 63-year-old male with a PMH significant for?HFrEF (25-30%, 2022), hsg-hroszgo-muqqjtioe type 2 diabetes, asthma, HLD, and alcohol use disorder who presents to the ED with?SOB and cough times 3-4 days. Pt reports he simply ?could not breathe?, made worse with lying flat on back or with exertion. Cough has been occasionally productive of yellowish sputum. No lower leg edema. Chills but no fever. Denies chest pain/pressure, no palpitations. No nausea, vomiting, abdominal pain. Pt reports he takes his medications ?off and on?, reporting taking Lasix maybe twice a week. In the ED pt was tachypneic up to 26 and hypoxic at 81%. Labs were significant for initial troponin 85.1 with repeat flat at 91.7, and BNP elevated at 673. No leukocytosis. Stable H&H. No significant electrolyte abnormalities. Renal function baseline. Hepatic function baseline. CXR showed cardiomegaly and mild pulmonary vascular congestion. CTA of chest negative for PE, but showed likely pulmonary hypertension and increased right heart pressures. EKG demonstrated normal sinus rhythm with left anterior fascicular block, nonspecific ST abnormaltiy. Pt was treated with Solu-Medrol DuoNeb, furosemide. Pt will be admitted to the hospital for treatment and further evaluation of acute hypoxic respiratory failure secondary to acute CHF exacerbation likely secondary to medication noncompliance. Review of Systems 2 Review of Systems: Negative except for that which is stated in the HPI. [facility] Medical History Asthma Smoker New onset type 2 diabetes mellitus Tobacco abuse Chronic HFrEF (heart failure with reduced ejection fraction) Streptococcus infection, group G Hypertension RVH (right ventricular hypertrophy) Tobacco abuse Elevated troponin Bacteremia Asthma Family History Mother Breast cancer Surgical History S/P cardiac catheterization Hx of appendectomy Social History Household Members: Children Household Members Other:: Daughter Housing: Apartment Do you presently have visiting nurse or other home services: No Alcohol intake: current Alcohol intake frequency: a few times a week Alcohol type: beer and hard liquor Patient Tobacco Use Status: Current everyday Tobacco user Tobacco use type: Cigarette Cigarette Packs Per Day: 0.5 Cigarettes Per Day: 5 Years Smoked: 25 Smoked in Last 30 Days: Yes e-Cigarette/Vaping Use: Never Used Second Hand Smoke Exposure: Yes Use of substances other than those prescribed or required for medical reasons: No Substance Use Type: Marijuana Advance Directives: Yes Advance Directives on File: Yes Advance Directives Date on File: 02/27/21 Do you have a plan to hurt others: No Plan service: No Current occupational status: employed Meds Allergies Allergy/AdvReac Type Severity Reaction Status Date / Time penicillin V Allergy Severe Swollen Verified 08/24/24 07:01 face Penicillins [PENICILLINS] Allergy Severe ANGIOEDEMA Verified 08/24/24 07:01 shellfish derived Allergy Severe ANAPHYLAXIS Verified 08/24/24 07:01 [SHELLFISH DERIVED] Home Medications ?Medication ?Instructions ?Recorded ?Confirmed ?Last Taken ?Type fluticasone 250 mcg-salmeterol 50 1 puff inhalation BID 09/16/21 08/24/24 04/06/24 11:00 History mcg/dose blistr powdr for inhalation (Advair Diskus) metformin 500 mg tablet 500 mg PO BID 10/22/21 08/24/24 08/24/24 History cholecalciferol (vitamin D3) 1,250 1,250 mcg PO MO 10/24/21 08/24/24 08/24/24 History mcg (50,000 unit) capsule aspirin 81 mg tablet,delayed 81 mg PO DAILY 10/05/23 08/24/24 08/24/24 History release (Adult Aspirin Regimen) atorvastatin 40 mg tablet 40 mg PO DAILY 04/07/24 08/24/24 08/24/24 History tiotropium bromide 2.5 2 puff inhalation QAM 04/07/24 08/24/24 04/06/24 11:00 History mcg/actuation mist for inhalation (Spiriva Respimat) empagliflozin 25 mg tablet 25 mg PO DAILY 08/24/24 08/24/24 08/24/24 History (Jardiance) Physical Exam 2 Vital Signs and Narrative: Vital Signs: Last Vital Signs Temp 98.3 F 08/24/24 08:34 Pulse 83 08/24/24 10:06 Resp 24 H 08/24/24 10:06 BP 127/80 08/24/24 10:06 Pulse Ox 94 08/24/24 10:09 O2 Del Method Oxymask 08/24/24 10:09 O2 Flow Rate 4 08/24/24 10:09 BMI result Body Mass Index 29.0 General: AOx3, no acute distress Resp: Mild coarse breath sounds bilaterally. Wet-soudning, non productive cough CVS: S1, S2, RRR GI: +BS, NT, no distention Skin: Warm, dry Neuro: Cranial nerves II-XII grossly intact bilaterally. Motor grossly intact bilaterally Extremities: Trace bilateral pitting edema Psych: Appropriate affect Results Labs 08/24/24 07:09 08/24/24 07:09 Labs: Laboratory Results - last 24 hr 08/24/24 08/24/24 08/24/24 07:09 07:42 08:38 MCV 95.2 MCH 31.8 MCHC 33.4 RDW 14.3 Plt Count 169 MPV 9.5 Immature Gran % (Auto) 0.3 Neut % (Auto) 70.3 Lymph % (Auto) 16.4 L [place] % (Auto) 10.7 Eos % (Auto) 1.8 Baso % (Auto) 0.5 Lymph # (Auto) 1.1 L [place] # (Auto) 0.7 Eos # (Auto) 0.1 Baso # (Auto) 0.0 Abs Immat Gran (auto) 0.02 Absolute Neuts (auto) 4.6 Absolute Nucleated RBC 0.000 Nucleated RBC % (auto) 0.0 Anion Gap 12 Estim Creat Clear Calc 82.8 Estimated GFR > 60 Random Glucose 163 H Calcium 9.5 Total Bilirubin 0.4 Direct Bilirubin 0.2 AST 33 ALT 24 Alkaline Phosphatase 81 B-Natriuretic Peptide 673 H Total Protein 8.1 H Albumin 4.2 Lipase 24 Urine Opiates Screen Not Detected Ur Buprenorphine Scrn Not Detected Ur Oxycodone Screen Not Detected Urine Methadone Screen Not Detected Urine Fentanyl Screen Not Detected Ur Barbiturates Screen Not Detected Ur Phencyclidine Scrn Not Detected Ur Amphetamines Screen Not Detected U Benzodiazepines Scrn Not Detected Urine Cocaine Screen POSITIVE H U Marijuana (THC) Screen Not Detected Ethyl Alcohol < 10 Influenza Type A (PCR) NEGATIVE Influenza Type B (PCR) NEGATIVE RSV RNA Qual (PCR) NEGATIVE SARS-CoV-2 RNA (RT-PCR) NEGATIVE Imaging Radiologist's Impressions: Impressions Chest X-Ray 08/24/24 08:20 IMPRESSION: Cardiomegaly and mild pulmonary vascular congestion. Electronically signed by: Cecilio Dean MD 08/24/2024 08:39 AM EDT RP Chest CTA 08/24/24 09:16 IMPRESSION: 1. Mild respiratory motion degradation. There is no evidence of pulmonary embolus. No indirect evidence of acute aortic syndrome. 2. Enlarged main pulmonary artery with contrast reflux into the hepatic veins, findings suggesting pulmonary hypertension and increased right heart pressures. 3. Moderate four-chamber cardiomegaly. No pericardial effusion. 4. Within confines of respiratory motion, no definite active lung disease or overt CHF. Electronically signed by: Negrito Gonzalez MD 08/24/2024 10:22 AM EDT RP Assessment and Plan (1) Acute hypoxic respiratory failure: Status: Acute (2) CHF exacerbation: Status: Acute Plan Pt is a 63-year-old male with a PMH significant for?HFrEF (25-30%, 2022), mdv-mkoiowr-qashbrigd type 2 diabetes, asthma, HLD, and alcohol use disorder who presents to the ED with?SOB and cough times 3-4 days. Pt will be admitted to the hospital for treatment and further evaluation of acute hypoxic respiratory failure secondary to acute CHF exacerbation likely secondary to medication noncompliance. Acute hypoxic respiratory failure in the setting of acute decompensated CHF Pt hypoxic at 81% on RA, elevated BNP, CXR pulmonary edema, CTA showing pulmonary hypertension with increased right filling pressures, orthopnea, SOB, GONZALES Likely secondary to medication noncompliance: Pt taking home Lasix around twice a week Will treat with Lasix 40 mg IV b.i.d. Continue spironolactone, metoprolol, Entresto Follow lytes, daily weight, I/O Low-salt diet Echocardiogram Titrate supplemental O2 >92, wean as tolerated Monitor on telemetry Asthma Not in acute exacerbation Pt received Solu-Medrol, DuoNeraghu in the ED Will hold on additional IV steroids for now Continue home meds DuoNebs p.r.n. Fol-auadohi-czmgnfzdq type 2 diabetes Hold metformin Sliding-scale insulin Polysubstance use disorder Daily alcohol use, cocaine+ CIWA Full Code Attending:?Dr. Lilly DVT Prophylaxis: Lovenox Pt will require a hospitalization of at least two nights for treatment of?acute hypoxic respiratory failure in the setting of acute decompensated CHF secondary to medication noncompliance. Pt will require hospital level care for administration of IV Lasix, supplemental oxygen, close monitoring of labs, vitals, cardiac function. Quality Stroke Does the patient have a stroke diagnosis?: No VTE Prior VTE?: No VTE Risk Level:: Medical - moderate - high VTE Device Contraindication: Treatment Not Indicated VTE Drug Contraindication: N/A - Med Ordered
--- NOTE | 2024-08-24 12:00 | CA_ITS ---
Transthoracic Echocardiogram Patient (Last, First, Middle): Jerry Sumner D Gender: Male Date of : 1960 Age: 63 Procedure Date: 08/24/2024 Procedure Type: Transthoracic Echocardiogram Location: ER Height: 180. cm Weight: 93.9 kg BSA: 2.14 m2 Heart Rate: 81 bpm BP: 118 / 77 mmHg Instrumentation Supervisor: PAUL Referring MD: Jose E Lilly MD Symptoms: CHF Study Quality: Adequate ECG Rhythm: Sinus Conclusions: - The left ventricular systolic function is severely decreased. The visually estimated ejection fraction is between 15-20%. - Evidence suggests grade II (moderate) diastolic dysfunction. - Moderately increased right ventricular cavity size. Findings Procedure Information Contrast agent, definity, is being given per protocol without apparent complications. Left Ventricle Moderately increased left ventricular cavity size. There is mildly increased left ventricular wall thickness. The left ventricular systolic function is severely decreased. The visually estimated ejection fraction is between 15 20%. There is severe global hypokinesis. Evidence suggests grade II (moderate) diastolic dysfunction. Right Ventricle Moderately increased right ventricular cavity size. There is normal right ventricular systolic function. Atria The right atrium is mildly dilated. Aortic Valve There is a normal trileaflet aortic valve. There is no aortic valve stenosis. There is trace (trivial) aortic valve regurgitation. Mitral Valve The mitral valve appears normal. There is no mitral valve regurgitation. There is no mitral valve stenosis. Pulmonic Valve The pulmonic valve is likely normal. Tricuspid Valve There is trace tricuspid valve regurgitation. There is no evidence of pulmonary hypertension. Echodensity on the tricuspid valve, but only seen in some images. Could be artifactual. Great Vessels There is mild dilatation of the ascending aorta measuring 3.80 cm. Venous The inferior vena cava is normal in size and collapses greater than 50% with inspiration. Pericardium/Pleural There is no evidence of pericardial effusion. Prior Study Comparison No significant change compared to prior study dated: 01/22/2023. Measurements 2D Linear Measurements IVSd: 1.08 0.6-0.9/0.6-1.0 cm LVIDd: 6.48 3.9-5.3/4.2-5.9 cm LVIDd Index: 3.03 2.4-3.2/2.2-3.1 cm/m2 LVIDs: 5.72 2.0-3.6 cm LVPWd: 1.30 0.7-1.1 cm LA Diam: 4.40 2.7-3.8/3.0-4.0 cm LAIDs Index: 2.06 1.5-2.3 cm/m2 LV Mass: 440.35 67-162/88-224 g LV Mass Index: 205.77 43-95/49-115 g/m2 LVOT Diam: 2.00 3.0+(-)1.3 cm 2D Systolic Function EF 4C: 25.40 >55% EF 2C: 37.20 >55% EF BiP: 30.20 >55% Mitral Valve MV Pk E: 0.73 MV PK A: 0.68 MV Decel Time: 174.00 E/A: 1.10 E'Lateral: 2.92 E'Medial: 2.35 E/E' Med: 31.20 E/E' Lat: 25.10 PHT: 51.00 MVA PHT: 4.31 Decel [place]: 4.21 Aortic Valve AoV Pk Kelvin: 1.35 AoV Mn Kelvin: 1.03 AoV VTI: 0.27 AoV Pk Grad: 7.00 Aov Mn Grad: 5.00 ROSE Cont.VTI: 2.17 LVOT LVOT Pk Kelvin: 0.96 LVOT Mn Kelvin: 0.73 LVOT VTI: 0.19 LVOT Pk Grad: 4.00 LVOT Mn Grad: 2.00 LVOT Diam: 2.00 LVOT Area: 3.14 Diastolic Function MV Pk E: 0.73 MV Pk A: 0.68 E/A: 1.10 E'Medial: 2.35 E/E' Med: 31.20 E' Laterial: 2.92 E/E' Lat: 25.10 Right Ventricle TAPSE (mm): 21.70 TVS' Kelvin: 10.50 Tricuspid Valve TR Pk Kelvin: 1.76 TR Pk Grad: 12.00 RA Press: 8.00 RVSP: 20.00 Great Vessels Aorta Sinus of Valsalva: 3.80 2.0-3.5 cm Ao Asc: 3.80 2.1-3.4 cm Pulmonary Valve PV Pk Kelvin: 0.93 Peak PV Grad: 3.00 Updated in Other Vendor System with Status of Final Aguila Portillo MD electronically signed on 08/24/2024 4:02:55 PM with status of Final
[2024-08-24] MEDS: Insulin Lispro 100 UNIT/ML 3 ML VIAL SUBCUT ×3 (12:09→21:01)
[2024-08-24] MEDS: Enoxaparin Sodium 40 MG/0.4 ML SYRINGE SUBCUT (12:10)
[2024-08-24 12:11] LABS: Glucose, Whole Blood 180 mg/dL (60-115)
--- NOTE | 2024-08-24 16:13 | PC.NURSE ---
This RN touched base with patient about concerns that he had about his care. This RN sat down with patient and went over all of his questions and concerns, Pt was able to have a calm conversatoin, and was very understanding once his questions were anwsered and he was in agreement with the plan moving forward. PT currently being brought up to assigned room.
[2024-08-24 16:32] LABS: Glucose, Whole Blood 355 mg/dL (60-115)
--- NOTE | 2024-08-24 16:58 | PC.NURSE ---
BS 355,patient on cardiac diet,Dr. Lilly notified
[2024-08-24] MEDS: 0.9 % Sodium Chloride Flush 3 ML SYRINGE IVFLUSH ×2 (17:08→21:01)
[2024-08-24 19:54] LABS: Glucose, Whole Blood 433 mg/dL (60-115)
--- NOTE | 2024-08-24 20:03 | MHC.PIE ---
P; POC 433. note; admelog 10u to be given per s/s i; dr sultana notified. no extra cover e;will cont to monitor
[2024-08-24] MEDS: Sacubitril/Valsartan 49/51 1 TAB TABLET PO (21:02)
[2024-08-25] VITALS (9 sets, daily range): BP systolic 93–119; BP diastolic 64–78; PULSE 60–82; RESP 16–18; TEMP 36.1–36.3; O2SAT 91–99
[2024-08-25 06:37] LABS: Basophils Percent Auto 0.2 % (0-2); Hemoglobin 17.3 g/dl (14.0-18.0); Imm Gran Abs Auto 0.05 X10*3/uL (0.00-0.03); Imm Gran Pct Auto 0.5 % (0.0-0.4); Lymphocytes Absolute Auto 1.3 X10*3/uL (1.2-4.9); Lymphocytes Percent Auto 13.4 % (20-40); MANUAL DIFF FLAG SCAN; Mean Corpuscular HGB Conc 33.3 g/dl (31.0-36.0); Mean Corpuscular Hemoglobin 31.2 pg (27.0-33.0); Mean Corpuscular Volume 93.9 fL (80.0-98.0); Mean Platelet Volume 10.5 fL (9.4-12.4); Monocytes Absolute Auto 0.9 X10*3/uL (0.1-1.2); Monocytes Percent Auto 9.5 % (2-11); Neutrophils Absolute Auto 7.4 x10*3/uL (2.0-8.3); Neutrophils Percent Auto 76.4 % (45-73); Platelet Count 201 X10*3/uL (160-400); Red Blood Count 5.54 X10*6/uL (4.60-5.80); Red Cell Distribution Width 13.6 % (11.0-16.0); SCAN SMEAR FLAG 1; White Blood Count 9.7 X10*3/uL (4.8-10.8)
[2024-08-25 06:49] LABS: Anion Gap 14 (12-20); Blood Urea Nitrogen 26 mg/dL (9-16); Carbon Dioxide 32 mmol/L (22-29); Chloride 101 mmol/L (96-108); Estimated Glomerular Filt Rate > 60; Glucose Random 190 mg/dL (60-115); Potassium 3.9 mmol/L (3.3-5.1); Sodium 143 mmol/L (135-145)
[2024-08-25 07:44] LABS: Glucose, Whole Blood 174 mg/dL (60-115)
[2024-08-25] MEDS: 0.9 % Sodium Chloride Flush 3 ML SYRINGE IVFLUSH ×3 (07:46→20:19)
[2024-08-25] MEDS: Aspirin Enteric Coated 81 MG TABLET.DR PO (07:47)
[2024-08-25] MEDS: Spironolactone 25 MG TABLET PO (07:47)
[2024-08-25] MEDS: Furosemide 40 MG/4 ML VIAL IVPUSH ×2 (07:47→16:43)
[2024-08-25] MEDS: Atorvastatin Calcium 40 MG TABLET PO (07:47)
[2024-08-25] MEDS: Sacubitril/Valsartan 49/51 1 TAB TABLET PO ×2 (07:47→20:17)
[2024-08-25] MEDS: Metoprolol Succinate ER 50 MG TAB.ER.24H PO (07:48)
[2024-08-25] MEDS: Empagliflozin 25 MG TABLET PO (07:48)
[2024-08-25 08:03] LABS: SLIDE REVIEW VERIFIED
[2024-08-25] MEDS: Fluticasone/Vilanterol 100/25 BLST.W.DEV 1 PUFF INHALE (08:04)
[2024-08-25] MEDS: Tiotropium Bromide 2.5 mcg 1 PUFF/2.5 MCG MIST.INHAL 2 PUFF INHALE (08:05)
[2024-08-25] MEDS: Insulin Lispro 100 UNIT/ML 3 ML VIAL SUBCUT ×4 (08:07→20:18)
--- NOTE | 2024-08-25 08:41 | PC.NURSE ---
patient refuses to see addiction team nurseLilian notified
--- NOTE | 2024-08-25 09:52 | MHC.RECOVRN ---
Received Addiction Medicine consult for cocaine use disorder. Pt is not interested in meeting with [facility]. AUDIT-C Brief Intervention Pt had positive screen for unhealthy alcohol use on admission. Attempted to meet with pt to discuss alcohol use and offer resources, pt declined.
--- NOTE | 2024-08-25 10:53 | PM.CNCAR ---
History of Present Illness History of Present Illness Date of Service: 08/25/24 Chief complaint: dyspnea Narrative: This is a cardiology consultation regarding cardiomyopathy. Generally seen by Dr. Solorio than last appointment for so about an year ago. According to his note, heart failure with reduced ejection fraction, severe LV dysfunction, nonischemic in nature. Suspected alcohol related. It seems that patient has not been taking medications and fairly noncompliant. According to him, he is smoking, drinking alcohol regularly and also doing drugs. Regular cocaine use. Toxicology screen is positive for the same. He was admitted with complaints of shortness of breath and cough. It seems that he was tachypneic and hypoxic. Low-grade troponin leak. He was treated for acute respiratory failure/decompensated CHF. He states that he is feeling better since the time of admission. Review of Systems Review of Systems: Yes all other systems are reviewed and are negative Constitutional: Constitutional: Reports as per HPI and Reports no additional constitutional complaints Eyes: Eyes: Reports as per HPI and Denies no additional eye complaints ENT: Denies system reviewed and no additional complaints, except as documented and Reports as per HPI Cardiovascular: Cardiovascular: Reports as per HPI, Reports no additional cardiovascular complaints, Denies acrocyanosis, Denies cool extremities, Denies chest pain, Denies leg edema, Denies lightheadedness, Denies palpitations and Reports dyspnea Respiratory: Respiratory: Reports as per HPI, Denies no additional respiratory complaints and Reports dyspnea Gastrointestinal: Gastrointestinal: Reports as per HPI and Denies no additional gastrointestinal complaints Genitourinary: Genitourinary: Reports no additional male genitourinary complaints and Reports as per HPI Musculoskeletal: Musculoskeletal: Reports no additional musculoskeletal complaints and Reports as per HPI Integumentary/Breasts: Skin/Breast: Reports system reviewed and no additional complaints, except as docu Neurologic: Reports system reviewed and no additional complaints, except as documented and Reports as per HPI Psychiatric: Psychiatric: Reports no additional psychiatric complaints and Reports as per HPI Endocrine: Endocrine: Reports no additional endocrine complaints, Reports as per HPI and Denies palpitations Hematologic/Lymphatic: Hematologic/Lymphatic: Reports no additional hematologic/lymphatic complaints and Reports as per HPI Allergic/Immunologic: Allergic/Immunologic: Reports no additional allergic/immunologic complaints and Reports as per HPI [facility] Past Medical History Medical History Asthma Smoker New onset type 2 diabetes mellitus Tobacco abuse Chronic HFrEF (heart failure with reduced ejection fraction) Streptococcus infection, group G Hypertension RVH (right ventricular hypertrophy) Tobacco abuse Elevated troponin Bacteremia Asthma Family History Family History Mother Breast cancer Surgical History Surgical History S/P cardiac catheterization Hx of appendectomy Social History Social History Household Members: Other Household Members Other:: [facility] Housing: Apartment Do you presently have visiting nurse or other home services: No Alcohol intake: current Alcohol intake frequency: a few times a week Alcohol type: beer and hard liquor Patient Tobacco Use Status: Current everyday Tobacco user Tobacco use type: Cigarette Cigarette Packs Per Day: 0.5 Cigarettes Per Day: 6 Years Smoked: 25 e-Cigarette/Vaping Use: Never Used Second Hand Smoke Exposure: No Substance Use Type: Marijuana Advance Directives Date on File: 02/27/21 service: No Current occupational status: employed Meds Allergies Allergy/AdvReac Type Severity Reaction Status Date / Time penicillin V Allergy Severe Swollen Verified 08/24/24 07:01 face Penicillins [PENICILLINS] Allergy Severe ANGIOEDEMA Verified 08/24/24 07:01 shellfish derived Allergy Severe ANAPHYLAXIS Verified 08/24/24 07:01 [SHELLFISH DERIVED] Active Medications: Current Medications Acetaminophen (Acetaminophen 325 Mg Tablet) 650 mg PO Q6H PRN PRN Reason: Pain, Mild 1-3,fever,headache Albuterol Sulfate (Albuterol Sulfate 90 Mcg 8 Gm Inhaler) 1 puff INHALE RQ4H PRN PRN Reason: shortness of breath or wheezing Aspirin (Aspirin Enteric Coated 81 Mg Tablet.) 81 mg PO DAILY [facility] Last Admin: 08/25/24 07:47 Dose: 81 mg Atorvastatin Calcium (Atorvastatin Calcium 40 Mg Tablet) 40 mg PO DAILY [facility] Last Admin: 08/25/24 07:47 Dose: 40 mg Calcium Carbonate (Calcium Carbonate 750 Mg Tab.Chew) 750 mg PO Q4H PRN PRN Reason: Heartburn Dextrose (Dextrose 50 % 25 Gm/50 Ml Syringe) 25 gm IVPUSH Q15M PRN; Protocol PRN Reason: per Hypoglycemia Standing Ord. Empagliflozin (Empagliflozin 25 Mg Tablet) 25 mg PO DAILY [facility] Last Admin: 08/25/24 07:48 Dose: 25 mg Enoxaparin Sodium (Enoxaparin Sodium 40 Mg/0.4 Ml Syringe) 40 mg SUBCUT Q24H [facility] Last Admin: 08/24/24 12:10 Dose: 40 mg Fluticasone/Vilanterol (Fluticasone/Vilanterol 100/25 Blst.W.Dev) 1 puff INHALE RDAILY [facility] Last Admin: 08/25/24 08:04 Dose: 1 puff Furosemide (Furosemide 40 Mg/4 Ml Vial) 40 mg IVPUSH BID@0900,1800 [facility]; Protocol Last Admin: 08/25/24 07:47 Dose: 40 mg Glucose (Glucose Gel 15 Gm Gel..Gram.) 15 gm PO Q15M PRN; Protocol PRN Reason: per Hypoglycemia Standing Ord. Insulin Human Lispro (Insulin Lispro 100 Unit/Ml 3 Ml Vial) 0 unit SUBCUT QIDACHS [facility]; Protocol Last Admin: 08/25/24 08:07 Dose: 2 unit Magnesium Hydroxide (Milk Of Magnesia 30 Ml Oral.Susp) 30 ml PO DAILY PRN PRN Reason: Constipation Melatonin (Melatonin 3 Mg Tablet) 6 mg PO BEDTIME PRN PRN Reason: Insomnia Metoprolol Succinate (Metoprolol Succinate Er 50 Mg Tab.Er.24h) 50 mg PO DAILY [facility]; Protocol Last Admin: 08/25/24 07:48 Dose: 50 mg Ondansetron HCl (Ondansetron Hcl 4 Mg/2 Ml Vial) 4 mg IVPUSH Q8H PRN PRN Reason: Nausea and Vomiting Sacubitril/Valsartan (Sacubitril/Valsartan 49/51 1 Tab Tablet) 1 tab PO BID [facility]; Protocol Last Admin: 08/25/24 07:47 Dose: 1 tab Sodium Chloride (0.9 % Sodium Chloride Flush 3 Ml Syringe) 3 ml IVFLUSH QSHIFT [facility] Last Admin: 08/25/24 07:46 Dose: 3 ml Spironolactone (Spironolactone 25 Mg Tablet) 25 mg PO DAILY [facility]; Protocol Last Admin: 08/25/24 07:47 Dose: 25 mg Tiotropium [place] (Tiotropium [place] 2.5 Mcg 1 Puff/2.5 Mcg Mist.Inhal) 2 puff INHALE RDAILY [facility] Last Admin: 08/25/24 08:05 Dose: 2 puff Home Medications ?Medication ?Instructions ?Recorded ?Confirmed ?Last Taken ?Type fluticasone 250 mcg-salmeterol 50 1 puff inhalation BID 09/16/21 08/24/24 04/06/24 11:00 History mcg/dose blistr powdr for inhalation (Advair Diskus) metformin 500 mg tablet 500 mg PO BID 10/22/21 08/24/24 08/24/24 History cholecalciferol (vitamin D3) 1,250 1,250 mcg PO MO 10/24/21 08/24/24 08/24/24 History mcg (50,000 unit) capsule aspirin 81 mg tablet,delayed 81 mg PO DAILY 10/05/23 08/24/24 08/24/24 History release (Adult Aspirin Regimen) atorvastatin 40 mg tablet 40 mg PO DAILY 04/07/24 08/24/24 08/24/24 History tiotropium bromide 2.5 2 puff inhalation QAM 04/07/24 08/24/24 04/06/24 11:00 History mcg/actuation mist for inhalation (Spiriva Respimat) empagliflozin 25 mg tablet 25 mg PO DAILY 08/24/24 08/24/24 08/24/24 History (Jardiance) Physical Exam Vital Signs: Vital Signs: Last Vital Signs Temp 97.2 F 08/25/24 07:32 Pulse 78 08/25/24 08:07 Resp 16 08/25/24 08:07 BP 119/78 08/25/24 07:32 Pulse Ox 95 08/25/24 07:32 O2 Del Method Nasal Cannula 08/25/24 07:32 O2 Flow Rate 3 08/25/24 07:32 BMI result Body Mass Index 29.0 Const: General: comfortable and no acute distress Orientation/consciousness: patient oriented x3 HEENT: Other: Unremarkable Head: Yes normal to inspection Neck: Neck: Yes normal visual inspection Chest: Chest palpation & inspection: normal inspection of the chest Resp: Auscultation: wheezes Cardio: Palpation: normal PMI Heart sounds: S1 normal heart sound present, S2 normal heart sound present, no gallops, no murmurs and no rubs GI: Palpation (GI): Soft to palpation Back/Spine/Pelvis: Other: unremarkable Skin: General skin exam: no rashes or lesions noted Neuro: General: patient oriented x3 Extrem: General: Yes normal to inspection Psych: Mental Status: mental status grossly normal Objective Labs and Meds 08/25/24 05:40 08/25/24 05:40 Lab results: Laboratory Results - last 24 hr 08/24/24 08/24/24 08/24/24 12:02 16:28 19:38 WBC RBC Hgb Hct MCV MCH MCHC RDW Plt Count MPV Immature Gran % (Auto) Neut % (Auto) Lymph % (Auto) [place] % (Auto) Eos % (Auto) Baso % (Auto) Lymph # (Auto) [place] # (Auto) Eos # (Auto) Baso # (Auto) Abs Immat Gran (auto) Absolute Neuts (auto) Absolute Nucleated RBC Nucleated RBC % (auto) Smear Tech's Comments Sodium Potassium Chloride Carbon Dioxide Anion Gap BUN Creatinine Estim Creat Clear Calc Estimated GFR POC Glucose 180 H 355 H* 433 H* Random Glucose Calcium 08/25/24 08/25/24 05:40 07:35 WBC 9.7 RBC 5.54 Hgb 17.3 Hct 52.0 MCV 93.9 MCH 31.2 MCHC 33.3 RDW 13.6 Plt Count 201 MPV 10.5 Immature Gran % (Auto) 0.5 H Neut % (Auto) 76.4 H Lymph % (Auto) 13.4 L [place] % (Auto) 9.5 Eos % (Auto) 0.0 Baso % (Auto) 0.2 Lymph # (Auto) 1.3 [place] # (Auto) 0.9 Eos # (Auto) 0.0 Baso # (Auto) 0.0 Abs Immat Gran (auto) 0.05 H Absolute Neuts (auto) 7.4 Absolute Nucleated RBC 0.000 Nucleated RBC % (auto) 0.0 Smear Tech's Comments VERIFIED Sodium 143 Potassium 3.9 Chloride 101 Carbon Dioxide 32 H Anion Gap 14 BUN 26 H Creatinine 1.15 Estim Creat Clear Calc 77.0 Estimated GFR > 60 POC Glucose 174 H Random Glucose 190 H Calcium 10.0 ECG Interpretation: EKG with underlying sinus rhythm at 87/Min; possible left atrial enlargement; incomplete right bundle-branch block pattern; left anterior fascicular block; similar to prior EKG. Assessment and Plan (1) Acute on chronic combined systolic and diastolic ACC/AHA stage C congestive heart failure: Status: Acute (2) Alcohol abuse: Status: Acute (3) Cocaine abuse: Status: Acute (4) Noncompliance: Status: Acute Plan In the echocardiogram, LVEF 15-20%. Moderate diastolic dysfunction. Moderately increased right ventricular size. Cardiac catheterization 2022-no significant CAD. Cardiac BNP is actually better than the last value. Chest CTA shows findings suggestive of pulmonary hypertension and increased right heart pressures. Tox screen positive for cocaine. Overall, alcohol and substance abuse, severe cardiomyopathy, noncompliance, acute on chronic heart failure. Mainly needs to abstain from the above but not clear if he will. We discussed about this today. In the outpatient meds, listed to be on beta-blockers, Entresto, spironolactone, Jardiance and furosemide and we need to increase compliance with these as much possible. For now, he is not appearing to volume overloaded and we can probably switch back to oral diuretics and a day or so. Guarded prognosis because of severe cardiomyopathy and ongoing substance abuse. Procedures Date of Service Date of Service: 08/25/24
--- NOTE | 2024-08-25 11:03 | HO.PM.IMPN ---
Subjective Subjective Date of Service: 08/25/24 Interval History: dyspnea improved, negative 1800 mL thus far no chest pain Review of Systems Review of Systems: Yes all other systems are reviewed and are negative Physical Exam Vital Signs: Vital Signs: Last Vital Signs Temp 97.2 F 08/25/24 07:32 Pulse 78 08/25/24 08:07 Resp 16 08/25/24 08:07 BP 119/78 08/25/24 07:32 Pulse Ox 95 08/25/24 07:32 O2 Del Method Nasal Cannula 08/25/24 07:32 O2 Flow Rate 3 08/25/24 07:32 BMI result Body Mass Index 29.0 Gen: in no acute distress HEENT: sclera anicteric, moist mucus membranes Neck: supple Lungs: diminished Heart: regular rate and rhythm, no murmurs Abd: soft, non-tender, non-distended Ext: no edema Skin: warm/well-perfused Neuro: alert and oriented x3, no focal findings Psych: appropriate affect Objective Data Active Medications Acetaminophen (Acetaminophen 325 Mg Tablet) 650 mg PO Q6H PRN PRN Reason: Pain, Mild 1-3,fever,headache Albuterol Sulfate (Albuterol Sulfate 90 Mcg 8 Gm Inhaler) 1 puff INHALE RQ4H PRN PRN Reason: shortness of breath or wheezing Aspirin (Aspirin Enteric Coated 81 Mg Tablet.) 81 mg PO DAILY [facility] Last Admin: 08/25/24 07:47 Dose: 81 mg Documented By: BEAU Atorvastatin Calcium (Atorvastatin Calcium 40 Mg Tablet) 40 mg PO DAILY [facility] Last Admin: 08/25/24 07:47 Dose: 40 mg Documented By: BEAU Calcium Carbonate (Calcium Carbonate 750 Mg Tab.Chew) 750 mg PO Q4H PRN PRN Reason: Heartburn Dextrose (Dextrose 50 % 25 Gm/50 Ml Syringe) 25 gm IVPUSH Q15M PRN; Protocol PRN Reason: per Hypoglycemia Standing Ord. Empagliflozin (Empagliflozin 25 Mg Tablet) 25 mg PO DAILY [facility] Last Admin: 08/25/24 07:48 Dose: 25 mg Documented By: BEAU Enoxaparin Sodium (Enoxaparin Sodium 40 Mg/0.4 Ml Syringe) 40 mg SUBCUT Q24H [facility] Last Admin: 08/24/24 12:10 Dose: 40 mg Documented By: EL Fluticasone/Vilanterol (Fluticasone/Vilanterol 100/25 Blst.W.Dev) 1 puff INHALE RDAILY [facility] Last Admin: 08/25/24 08:04 Dose: 1 puff Documented By: KENNA Furosemide (Furosemide 40 Mg/4 Ml Vial) 40 mg IVPUSH BID@0900,1800 [facility]; Protocol Last Admin: 08/25/24 07:47 Dose: 40 mg Documented By: BEAU Glucose (Glucose Gel 15 Gm Gel..Gram.) 15 gm PO Q15M PRN; Protocol PRN Reason: per Hypoglycemia Standing Ord. Insulin Human Lispro (Insulin Lispro 100 Unit/Ml 3 Ml Vial) 0 unit SUBCUT QIDACHS [facility]; Protocol Last Admin: 08/25/24 08:07 Dose: 2 unit Documented By: BEAU Magnesium Hydroxide (Milk Of Magnesia 30 Ml Oral.Susp) 30 ml PO DAILY PRN PRN Reason: Constipation Melatonin (Melatonin 3 Mg Tablet) 6 mg PO BEDTIME PRN PRN Reason: Insomnia Metoprolol Succinate (Metoprolol Succinate Er 50 Mg Tab.Er.24h) 50 mg PO DAILY [facility]; Protocol Last Admin: 08/25/24 07:48 Dose: 50 mg Documented By: BEAU Ondansetron HCl (Ondansetron Hcl 4 Mg/2 Ml Vial) 4 mg IVPUSH Q8H PRN PRN Reason: Nausea and Vomiting Sacubitril/Valsartan (Sacubitril/Valsartan 49/51 1 Tab Tablet) 1 tab PO BID [facility]; Protocol Last Admin: 08/25/24 07:47 Dose: 1 tab Documented By: BEAU Sodium Chloride (0.9 % Sodium Chloride Flush 3 Ml Syringe) 3 ml IVFLUSH QSHIFT [facility] Last Admin: 08/25/24 07:46 Dose: 3 ml Documented By: BEAU Spironolactone (Spironolactone 25 Mg Tablet) 25 mg PO DAILY [facility]; Protocol Last Admin: 08/25/24 07:47 Dose: 25 mg Documented By: BEAU Tiotropium [place] (Tiotropium [place] 2.5 Mcg 1 Puff/2.5 Mcg Mist.Inhal) 2 puff INHALE RDAILY [facility] Last Admin: 08/25/24 08:05 Dose: 2 puff Documented By: KENNA Labs 08/25/24 05:40 08/25/24 05:40 Labs: Laboratory Results - last 24 hr 08/24/24 08/24/24 08/24/24 12:02 16:28 19:38 MCV MCH MCHC RDW Plt Count MPV Immature Gran % (Auto) Neut % (Auto) Lymph % (Auto) [place] % (Auto) Eos % (Auto) Baso % (Auto) Lymph # (Auto) [place] # (Auto) Eos # (Auto) Baso # (Auto) Abs Immat Gran (auto) Absolute Neuts (auto) Absolute Nucleated RBC Nucleated RBC % (auto) Smear Tech's Comments Anion Gap Estim Creat Clear Calc Estimated GFR POC Glucose 180 H 355 H* 433 H* Random Glucose Calcium 08/25/24 08/25/24 05:40 07:35 MCV 93.9 MCH 31.2 MCHC 33.3 RDW 13.6 Plt Count 201 MPV 10.5 Immature Gran % (Auto) 0.5 H Neut % (Auto) 76.4 H Lymph % (Auto) 13.4 L [place] % (Auto) 9.5 Eos % (Auto) 0.0 Baso % (Auto) 0.2 Lymph # (Auto) 1.3 [place] # (Auto) 0.9 Eos # (Auto) 0.0 Baso # (Auto) 0.0 Abs Immat Gran (auto) 0.05 H Absolute Neuts (auto) 7.4 Absolute Nucleated RBC 0.000 Nucleated RBC % (auto) 0.0 Smear Tech's Comments VERIFIED Anion Gap 14 Estim Creat Clear Calc 77.0 Estimated GFR > 60 POC Glucose 174 H Random Glucose 190 H Calcium 10.0 Assessment and Plan (1) Acute on chronic combined systolic and diastolic ACC/AHA stage C congestive heart failure: Status: Acute Assessment and Plan: d2 for 63yo M with HFrEF [25-30% in 2022], DM2, asthma, HLD, AUD, cocaine abuse presenting with progressive dyspnea + cough for 3-4d, found to be hypoxic, admitted for CHF exacerbation likely due to noncompliance acute hypoxic respiratory failure due to acute-chronic HFrEF/non-ischemic cardiomyopathy - continue furosemide IV, monitor lytes + BNP + weights + I/O; low-sodium diet - TTE 08/24: - The left ventricular systolic function is severely decreased. The visually estimated ejection fraction is between 15-20%. - Evidence suggests grade II (moderate) diastolic dysfunction. - Moderately increased right ventricular cavity size. - wean off O2 as tolerated - Cardiology consulted - continue empagliflozin, metoprolol succinate, Entresto, spironolactone asthma not in acute exacerbation - continue Breo, tiotropium, albuterol DM2 - hold MTF; give correction-dose lispro polysubstance abuse - Addiction Medicine consultation - prn CIWA - screen for HBV/HCV/HIV VTE ppx - enoxaparin dispo - eventual home with VNA In my clinical judgment, the patient requires continued inpatient hospitalization for the following reasons: IV diuresis Total time managing care of this patient today: 45 minutes. Quality Stroke Does the patient have a stroke diagnosis?: No VTE Prior VTE?: No VTE Risk Level:: Medical - moderate - high VTE Device Contraindication: Treatment Not Indicated VTE Drug Contraindication: N/A - Med Ordered
[2024-08-25 11:16] LABS: Glucose, Whole Blood 234 mg/dL (60-115)
[2024-08-25] MEDS: Enoxaparin Sodium 40 MG/0.4 ML SYRINGE SUBCUT (11:42)
--- NOTE | 2024-08-25 14:57 | MHC.CM.PN ---
PT LIVES IN APARTMENT WITH DAUGHTER DOES NOT RECEIVE SERVICES DOES NOT USE DME PCP- SERA BELLO HCP- DAUGHTER LUMA- [phone] DCP- HOME SELF CARE VIA OWN CAR. [facility] DIRECT FOR INSURANCE
[2024-08-25 16:22] LABS: Glucose, Whole Blood 174 mg/dL (60-115)
[2024-08-25 20:10] LABS: Glucose, Whole Blood 257 mg/dL (60-115)
[2024-08-26 00:06] VITALS: BP 100/66
[2024-08-26 00:15] LABS: Glucose, Whole Blood 193 mg/dL (60-115)
[2024-08-26 03:54] VITALS: BP 116/65; PULSE 68; RESP 17; TEMP 36.1; O2SAT 93
[2024-08-26 07:23] VITALS: BP 111/85; PULSE 61; RESP 18; TEMP 36.6; O2SAT 93
[2024-08-26] MEDS: Tiotropium Bromide 2.5 mcg 1 PUFF/2.5 MCG MIST.INHAL 2 PUFF INHALE (07:50)
[2024-08-26] MEDS: Fluticasone/Vilanterol 100/25 BLST.W.DEV 1 PUFF INHALE (07:50)
[2024-08-26 07:53] VITALS: PULSE 47; RESP 16; O2SAT 95
[2024-08-26 07:57] LABS: Glucose, Whole Blood 161 mg/dL (60-115)
[2024-08-26] MEDS: Atorvastatin Calcium 40 MG TABLET PO (08:08)
[2024-08-26] MEDS: Spironolactone 25 MG TABLET PO (08:08)
[2024-08-26] MEDS: Empagliflozin 25 MG TABLET PO (08:08)
[2024-08-26] MEDS: Sacubitril/Valsartan 49/51 1 TAB TABLET PO (08:08)
[2024-08-26] MEDS: Furosemide 40 MG/4 ML VIAL IVPUSH (08:09)
[2024-08-26] MEDS: 0.9 % Sodium Chloride Flush 3 ML SYRINGE IVFLUSH (08:09)
[2024-08-26] MEDS: Aspirin Enteric Coated 81 MG TABLET.DR PO (08:09)
[2024-08-26 08:47] LABS: Anion Gap 13 (12-20); Blood Urea Nitrogen 27 mg/dL (9-16); Calcium 9.6 mg/dL (8.4-10.2); Carbon Dioxide 34 mmol/L (22-29); Chloride 100 mmol/L (96-108); Creatinine Clr Calc Pharmacy 77.7; Estimated Glomerular Filt Rate > 60; Glucose Random 134 mg/dL (60-115); Magnesium 2.2 mg/dL (1.6-2.6); Potassium 4.2 mmol/L (3.3-5.1); Sodium 143 mmol/L (135-145)
--- NOTE | 2024-08-26 08:50 | PM.DS ---
DS: Providers Provider Date of Service: 08/26/24 Date of admission: 08/24/24 11:16 Date of discharge: 08/26/24 Primary care physician: Veronique Gastelum NP Consults: 08/24/24 11:45 Addiction Medicine Provider Routine Consulting Provider: Addiction Covering Reason for consultation: cocaine use disorder 08/25/24 08:20 Consult to Cardiology Routine Consulting Provider: [facility] Reason for consultation: ef 15% DS: Diagnosis Discharge Diagnosis (1) Acute on chronic combined systolic and diastolic ACC/AHA stage C congestive heart failure: Status: Acute DS: Summary Hospital Course Hospital Course: History and physical as per admitting provider. Pt is a 63-year-old male with a PMH significant for?HFrEF (25-30%, 2022), [id number] type 2 diabetes, asthma, HLD, and alcohol use disorder who presents to the ED with?SOB and cough times 3-4 days. Pt reports he simply ?could not breathe?, made worse with lying flat on back or with exertion. Cough has been occasionally productive of yellowish sputum. No lower leg edema. Chills but no fever. Denies chest pain/pressure, no palpitations. No nausea, vomiting, abdominal pain. Pt reports he takes his medications ?off and on?, reporting taking Lasix maybe twice a week. In the ED pt was tachypneic up to 26 and hypoxic at 81%. Labs were significant for initial troponin 85.1 with repeat flat at 91.7, and BNP elevated at 673. No leukocytosis. Stable H&H. No significant electrolyte abnormalities. Renal function baseline. Hepatic function baseline. CXR showed cardiomegaly and mild pulmonary vascular congestion. CTA of chest negative for PE, but showed likely pulmonary hypertension and increased right heart pressures. EKG demonstrated normal sinus rhythm with left anterior fascicular block, nonspecific ST abnormaltiy. Pt was treated with Solu-Medrol DuoNeb, furosemide. Pt will be admitted to the hospital for treatment and further evaluation of acute hypoxic respiratory failure secondary to acute CHF exacerbation likely secondary to medication noncompliance. Acute hypoxic respiratory failure due to acute-chronic HFrEF/non-ischemic cardiomyopathy treated with IV furosemide, TTE on 08/24 showed systolic function severely depressed with EF of 15-20% suggestive of grade 2 diastolic dysfunction. Seen evaluated by Cardiology, agree to transitioned back to oral Lasix. Patient to continue his Jardiance, metoprolol, Entresto and spironolactone. asthma not in acute exacerbation. continue Breo, tiotropium, albuterol DM2. Continue metformin polysubstance abuse. Do not use drugs or drink alcohol as this can worsen cardiomyopathy and heart failure Time Attestation Discharge Coordination Time (in mins): 42 Quality: Safe Use of Opioids Does Pt have an Active Cancer Diagnosis on the Problem List?: No Quality: Stroke Does the patient have a stroke diagnosis?: No Physical Exam Vital Signs: Vital Signs: Last Vital Signs Temp 97.8 F 08/26/24 07:23 Pulse 47 L 08/26/24 07:53 Resp 16 08/26/24 07:53 BP 111/85 08/26/24 07:23 Pulse Ox 93 08/26/24 07:23 O2 Del Method Nasal Cannula 08/26/24 07:23 O2 Flow Rate 2 08/26/24 07:23 BMI result Body Mass Index 29.0 Appearing in no acute distress head is normocephalic atraumatic eyes pupils are PERRLA sclera is anicteric mouth throat mucous membranes are intact and moist neck is supple no lymphadenopathy, no JVD noted lung sounds are clear to auscultation heart regular rate rhythm, clear S1, S2 positive bowel sounds, abdomen is soft, nontender neuro patient is alert x3, no focal deficits DS: Data Data Completed and Pending Labs on day of discharge: Laboratory Results - last 24 hr 08/25/24 08/25/24 08/25/24 11:07 16:14 20:01 Sodium Potassium Chloride Carbon Dioxide Anion Gap BUN Creatinine Estim Creat Clear Calc Estimated GFR POC Glucose 234 H 174 H 257 H Random Glucose Calcium Magnesium 08/26/24 08/26/24 08/26/24 00:12 07:19 07:30 Sodium 143 Potassium 4.2 Chloride 100 Carbon Dioxide 34 H Anion Gap 13 BUN 27 H Creatinine 1.14 Estim Creat Clear Calc 77.7 Estimated GFR > 60 POC Glucose 193 H 161 H Random Glucose 134 H Calcium 9.6 Magnesium 2.2 Preliminary micro results at discharge 08/24/24 17:06 Blood Culture - Preliminary Blood - Venous No growth after 24 hours. 08/24/24 17:12 Blood Culture - Preliminary Blood - Venous No growth after 24 hours. Discharge Plan Discharge Anticipated Discharge Date/Time: 08/26/24 08:46 Patient Disposition: Home, Self-Care Discharge Diagnosis: Acute hypoxic respiratory failure Acute on chronic heart failure with reduced ejection fraction/nonischemic cardiomyopathy Referrals: Veronique Gastelum NP [Primary Care Provider] - 1 Week Aguila Portillo MD [Physician] - 1 Week Discharge Medications: Continued cholecalciferol (vitamin D3) 1,250 mcg (50,000 unit) capsule 1,250 mcg PO MO Entresto 49-51 mg tablet 1 tab PO BID Qty: 60 11RF metoprolol succinate [Toprol XL] 50 mg tablet extended release 24 hr 50 mg PO DAILY Qty: 30 5RF fluticasone propion-salmeterol [Advair Diskus] 250-50 mcg/dose blister with device 1 puff inhalation BID spironolactone 25 mg Tablet 25 mg PO DAILY Qty: 30 0RF Protocol: Hold for SBP< HOLD for SBP < : 90 furosemide 40 mg Tablet 40 mg PO BID@0900,1800 Qty: 60 0RF Protocol: Hold for SBP< HOLD for SBP < : 90 Spiriva Respimat 2.5 mcg/actuation mist 2 puff inhalation QAM atorvastatin 40 mg tablet 40 mg PO DAILY Rx Instructions: Take 1 tablet at bedtime daily Dose has been increased to 40mg albuterol sulfate 90 mcg/actuation aero powdr breath act w/sensor 1 inh inhalation Q4-6H PRN (Reason: shortness of breath or wheezing) Qty: 1 0RF Jardiance 25 mg tablet 25 mg PO DAILY metformin 500 mg tablet 500 mg PO BID aspirin [Adult Aspirin Regimen] 81 mg tablet,delayed release (DR/EC) 81 mg PO DAILY Discharge Orders: Discharge Order (Routine); Ordered 08/26/24 Ordered By: Nicole Alfaro Diet: Advance to usual diet Activity on Discharge: As tolerated Stand Alone Forms: Patient Portal Discharge page Print Language: Estonian Care Plan Goals: Take all medications for congestive heart failure daily Weigh yourself daily, reach out to assembly worker or primary care provider if you have a weight gain of greater than 3 lb in 24 hours Health Concerns: Acute hypoxic respiratory failure Acute on chronic heart failure with reduced ejection fraction/nonischemic cardiomyopathy Plan of Treatment: Follow up with primary care provider as needed Take all medications as prescribed Assessment: See discharge summary
[2024-08-26 08:54] LABS: B Type Natriuretic Peptide 174 pg/mL (<100)
--- NOTE | 2024-08-26 09:08 | MHC.CM.PN ---
Patient medically cleared for dc home self care via self transport. RN aware.
[2024-08-26 09:09] LABS: HBS Num1 2.01 mIU/mL (0-7.99); HBc Num1 0.07 S/CO (0.00-0.79); HBsAGNum1 0.28 S/CO (0.00-0.99); HIV AB/AG Nonreactive (Nonreactive); HIV Num 1 0.05 S/CO (0.00-0.99); Hepatitis B Core Antibody Nonreactive (Nonreactive); Hepatitis B Surface Antigen Negative (Negative); ~HepC Num1 0.11 S/CO (0.00-0.79); ~Hepatitis B Surface Antibody NONREACTIVE (Nonreactive); ~Hepatitis C Antibody Nonreactive (Nonreactive)
== END 2024-08-26 09:12 | disposition home or self-care (01) | DRG 194 ==
LOC: HO.ED 10:52 → HO.EDOVER 11:23 → HO.S3 13:41
PROVIDERS: Family Medicine; Admitting Provider Student in an Organized Health Care Education/Training Program; Emergency Provider Emergency Medicine; PCP Nurse Practitioner Primary Care; Visit Provider Nurse Practitioner Acute Care
DX: I11.0 Hypertensive heart disease with heart failure (principal); J96.01 Acute respiratory failure with hypoxia; I50.23 Acute on chronic systolic (congestive) heart failure; I27.20 Pulmonary hypertension, unspecified; I42.8 Other cardiomyopathies; F10.10 Alcohol abuse, uncomplicated; F14.10 Cocaine abuse, uncomplicated; F17.210 Nicotine dependence, cigarettes, uncomplicated; Z71.6 Tobacco abuse counseling; E11.9 Type 2 diabetes mellitus without complications; F19.90 Other psychoactive substance use, unspecified, uncomplicated; J44.9 Chronic obstructive pulmonary disease, unspecified; Z20.822 Contact with and (suspected) exposure to COVID-19; Z91.148 Patient's other noncompliance with medication regimen for other reason; Z79.82 Long term (current) use of aspirin; Z79.84 Long term (current) use of oral hypoglycemic drugs; Z79.899 Other long term (current) drug therapy
CPT/HCPCS: 0241U; 36415; 71045; 71275; 80048; 80076; 80307; 82947; 83690; 83735; 83880; 84484; 85025; 86704; 86706; 86803; 87040; 87340; 87389; 93005; 93306; 94640; 99285; J1650; J1940; J2919; Q9957; Q9967

== ENCOUNTER → 2024-08-24 07:04 | Outpatient (BNV) | payer OTHER, SELFPAY | PROVIDERS: Emergency Provider Emergency Medicine; PCP Nurse Practitioner Primary Care; Visit Provider Radiology Diagnostic Radiology | DX: R09.02 Hypoxemia (principal); I51.7 Cardiomegaly; R06.09 Other forms of dyspnea | CPT/HCPCS: 71045; 71275 ==

== ENCOUNTER 2024-08-24 11:16 | Outpatient (BNV) | payer OTHER, SELFPAY | END 2024-08-24 12:00 | PROVIDERS: Admitting Provider Student in an Organized Health Care Education/Training Program; Emergency Provider Emergency Medicine; PCP Nurse Practitioner Primary Care; Visit Provider Internal Medicine | DX: I50.30 Unspecified diastolic (congestive) heart failure (principal); I36.8 Other nonrheumatic tricuspid valve disorders; R94.31 Abnormal electrocardiogram [ECG] [EKG]; I45.19 Other right bundle-branch block | CPT/HCPCS: 93010; 93306 ==

== ENCOUNTER → 2024-08-24 11:16 | Outpatient (BNV) | payer OTHER, SELFPAY | PROVIDERS: Admitting Provider Student in an Organized Health Care Education/Training Program; Emergency Provider Emergency Medicine; PCP Nurse Practitioner Primary Care; Visit Provider Student in an Organized Health Care Education/Training Program | DX: J96.01 Acute respiratory failure with hypoxia (principal); I50.9 Heart failure, unspecified | CPT/HCPCS: 99223 ==

== ENCOUNTER → 2024-08-24 11:16 | Outpatient (BNV) | payer OTHER, SELFPAY | PROVIDERS: Admitting Provider Student in an Organized Health Care Education/Training Program; Emergency Provider Emergency Medicine; PCP Nurse Practitioner Primary Care; Visit Provider Internal Medicine | DX: I50.43 Acute on chronic combined systolic (congestive) and diastolic (congestive) heart failure (principal); F10.10 Alcohol abuse, uncomplicated; F14.10 Cocaine abuse, uncomplicated; Z91.199 Patient's noncompliance with other medical treatment and regimen due to unspecified reason | CPT/HCPCS: 99223 ==

== ENCOUNTER 2024-10-06 03:15 | Inpatient (IN) | payer OTHER, SELFPAY ==
[2024-10-06] VITALS (12 sets, daily range): BP systolic 127–147; BP diastolic 81–95; PULSE 60–89; RESP 16–23; TEMP 36–36.8; O2SAT 88–98; BMI 28.4; BMI 25.3
--- NOTE | ~2024-10-06 | XR_ITS ---
CLINICAL HISTORY: sob 1 view chest x-ray. Comparison: CR/SR - XR CHEST 1V - 08/24/24 08:25 EDT Findings: There is pulmonary vascular congestion similar to the prior study. The lungs appear otherwise clear. There is no consolidation, effusion, or pneumothorax. Enlargement of the cardiac silhouette is stable. IMPRESSION: Cardiomegaly and pulmonary vascular congestion. This document has been electronically signed by: Palomo Varner MD on 10/06/2024 04:36:35
--- NOTE | ~2024-10-06 | XR_ITS ---
CLINICAL HISTORY: sob, lightheadedness 1 view chest x-ray Comparison: 10/06/2024 Findings: The heart is enlarged. Prominence of pulmonary vasculature. No consolidation, significant pleural effusion or pneumothorax. No acute fracture. IMPRESSION: 1. Cardiomegaly and pulmonary vascular congestion with no significant interval change. This document has been electronically signed by: Lisa Glover MD on 10/07/2024 17:09:15
--- OUTSIDE RECORDS SUMMARY | 2024-10-06 03:27 | XMS_ITS | Encounter Summary ---
Author Organization [employer] Address [address] [facility] [address] [place] [address] Care Team Providers Care Community Services Manager Name Role Phone Veronique Gastelum Primary Care Provider [phone] Aguila Portillo MD Unavailable [phone] Encounter Details Date Type Department Care Team (Late st Contact Info) Description 07/21/2022 Orders Only [facility] [address] [place] [address] Billie Morales LPN Social History Tobacco Use Types Packs/Day Years Used Date Smoking Tobacco: Never Assessed Sex and Gender Information Value Date Recorded Sex Assigned at Male 04/13/2022 10:18 AM EDT Legal Sex Male 10:18 AM EDT Gender Identity Male 04/13/2022 10:18 AM EDT Sexual Orientation Choose not to disclose 2021 10:18 AM EDT documented as of this encounter Plan of Treatment Upcoming Encounters Date Type Department Care Team (Late st Contact Info) Description 12/04/2024 2:00 PM EDT Office Visit [facility] [address] [place] [address] Veronique Gastelum ANP [address] [place] [address] documented as of this encounter Visit Diagnoses Not on filedocumented in this encounter Care Teams Community Services Manager Relationship Specialty Start Date End Date Veronique Gastelum ANP [address] [place] [address] PCP - General Family Medicine 05/29/21 Aguila Portillo MD [address]rd [place] [address] Cardiology 05/24/24 documented as of this encounter
--- OUTSIDE RECORDS SUMMARY | 2024-10-06 03:27 | XMS_ITS | Encounter Summary ---
Author Organization [employer] Address [address] [place] [address] Care Team Providers Care Die Cut Operator Name Role Phone Veronique Gastelum Primary Care Provider [phone] Aguila Portillo MD Unavailable [phone] Encounter Details Date Type Department Care Team (Latest Contact Info) Description 10/05/2024 Travel Social History Tobacco Use Types Packs/Day Years Used Date Smoking Tobacco: Every Day Cigarettes Smokeless Tobacco: Never Alcohol Use Standard Drinks/Week Comments Yes 0 [...] Description 12/04/2024 2:00 PM EDT Office Visit [facility] [address] [place] [address] Veronique Gastelum ANP [address] [place] [address] documented as of this encounter Visit Diagnoses Not on filedocumented in this encounter Care Teams Die Cut Operator Relationship Specialty Start Date End Date Veronique Gastelum ANP [address] [place] [address] PCP - General Family Medicine 05/29/21 Aguila Portillo MD [address] [place] [address] [address]rd [place] [address] Cardiology 05/24/24 documented as of this encounter
--- OUTSIDE RECORDS SUMMARY | 2024-10-06 03:27 | XMS_ITS | Encounter Summary ---
Author Organization [employer] Address [address] [facility] [address] [place] [address] Care Team Providers Care Loop Tender Name Role Phone Veronique Gastelum Primary Care Provider [phone] Aguila Portillo MD Unavailable Reason for Referral * Consultation (Urgent) - Authorized Specialty Diagnoses / Procedures Referred By Samir klein Referred To Contact Pharmacy Diagnoses 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 heart failure (CMS/HCC) Veronique Gastelum ANP [address] [place] [address] Phone: tel: fax: Referral ID Status Reason Start Date Expiration Date Visits Requested Visits Authorized [id number] Authorized Continuity of Care 10/05/2024 10/05/2025 6 6 Reason for Visit * Reason Comments Hospital Follow-up Encounter Details Date Type Department Care Team (Late st Contact Info) Description 10/05/2024 2:30 PM EDT Office Visit [facility] [address] [place] [id number] Veronique Gastelum ANP [address] [place] [address] Hospital discharge follow-up (Primary Dx); 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 heart failure (CMS/HCC); Hyperlipidemia associated with type 2 diabetes mellitus (CMS/HCC); Moderate persistent asthma without complication; Chronic obstructive pulmonary disease, unspecified COPD type (CMS/HCC); Acute bilateral low back pain without sciatica Social History Tobacco Use Types Packs/Day Years [...] AM EDT documented as of this encounter Last Filed Vital Signs Vital Sign Reading Time Taken Comments Blood Pressure 138/78 10/05/2024 3:28 PM EDT Pulse 74 10/05/2024 2:35 PM EDT Temperature 36.8 ??C (98.3 ??F) 10/05/2024 2:35 PM ED T Respiratory Rate 18 10/05/2024 2:35 PM EDT Oxygen Saturation 98% 10/05/2024 2:35 PM EDT Inhaled Oxygen Concentration - - Weight 92.4 kg (203 lb 12.8 oz) 10/05/2024 2:35 PM EDT Height - - Body Mass Index 30.1 08/27/2023 1:16 PM EDT documented in this encounter Progress Notes * HILARIO Whiting - 10/05/2024 2:30 PM EDT Subjective Patient ID: Jerry Sumner is a 64 y.o. male who presents for Hospital Follow-up. HPI Here today for HDF Missed HDF in May 2024 for [facility] admission 04/07/24-04/08/24: Patient presented for evaluation of SOB. Patient reported noncompliance with medication. Admitted for acute hypoxic respiratory failure due to acute on chronic CHF. Treated with IV furosemide and improved faster than expected. Continued on home Entresto and metoprolol. Echo deferred as outpatient. Discharged home. Then admitted again for CHF [facility] admission 08/24/2024 - 08/26/2024: HFrEF patient presented to ED with SOB and cough. Reports intermittent med adherence, including furosemide ~2x/week. On arrival patient was tachypneic (RR 26 bpm) and hypoxic (SpO2 81%). CXR showed cardiomegaly and mild pulmonary congestion. CTA suggests pulmonary hypertension and increased right heart pressures. Treated with Solu-Medrol, Duoneb, and IV furosemide. Admitted for management. Cardiology consulted and restarted on oral furosemide. Discharged home. TTE on 08/24 showed systolic function severely depressed with EF of 15-20% suggestive of grade 2 diastolic dysfunction This is down from 25-30%, 2022. TODAY: Tells me today he was in [place] for 4 months because his brother and he was helping with family things. This also meant that he was not getting medical care and has not been taking his medications regularly. He ran out 1 week ago of all medications however last filled med box in March and these were leftover from then. He is having worsening SOB x 1d. Has been out of HF meds for 1 week. Cannot lie flat d/t SOB, ok laying on sides. Denies GONZALES, sputum, chills/fever. No CP. No edema. Has not seen Dr. Portillo for cardiology follow-up as recommended by hospital at discharge. Gavehim phone number today to contact cardiology for appointment IR[place]. Reviewed with him again the severity of his CHF and low EF and need for strict medication compliance and follow-up with specialists. He will restart Lasix 40 mg twice daily today along with Entresto and spironolactone. His other medications have refills at pharmacy and I asked them to fill. If his breathing gets any worse or if hedoes not improve having restarted the Lasix recommend he go to the emergency room this weekend. He will also restart Advair and Spiriva and is encouraged to quit smoking . Lungs w/ expiratory wheezing, ?crackles Smokes 2 cigarettes/day Works at [employer] Recommendations for provider: Continue to stress adherence. Per hospitalization and dispense report patient is noncompliant to medications Background Pharmacist Melissa Godoy PharmD contacted patient to discuss upcoming hospital discharge visit for CHF: Future Appointments Date Time Provider Department Center 10/05/2024 2:30 PM HILARIO Whiting [facility] Hospital Course and Medication Reconciliation [facility] (08/24/2024 - 08/26/2024) HFrEF patient presented to ED with SOB and cough. Reports intermittent med adherence, including furosemide ~2x/week. On arrival patient was tachypneic (RR 26 bpm) and hypoxic (SpO2 81%). CXR showed cardiomegaly and mild pulmonary congestion. CTA suggests pulmonary hypertension and increased right heart pressures. Treated with Solu-Medrol, Duoneb, and IV furosemide. Admitted for management. Cardiology consulted and restarted on oral furosemide. Discharged home. No medication changes occurred during hospitalization Preferred Pharmacy: [facility] - [address] [id number] Medbox: Yes Date: 05/16/2024 Patient Reported History Patient reports taking everything in the medication box as prescribed, is unable to recall other medications Reports needing a refill of the medication box and inhalers. Pharmacy notified patient that we needupdated insurance, patient is agreeable to bring insurance card on to [facility] pharmacy after HDF appointment Patient reports experiencing SOB once or twice a week Confirmed and agreeable to HDF appointment as listed above Provider Recommendations Please consider assessing if the patient is interested in tobacco cessation at this time. May consider referring to CD Pharmacist Notes Discrepancy: Discharge notes the patient takes cholecalciferol, per EHR the patient takes ergocalciferol (last filled 12/2023 84 ds) Patient confirms taking ergocalciferol Crcl (adj bw) 74.4 ml/min on 08/26/2024, no dose adjustments needed at this time Immunizations The MIIS database was reconciled and patient is indicated for the following immunizations: COVID-19, HepA, HepB , Influenza (annual), PCV20, RSV (age 60-74 yo with risk factor(s)), and Shingrix series (age > 50 yo) Patient is agreeable to receive indicated vaccinations. An appointment has been scheduled at [facility] pharmacy 10/05/2024 315 PM (after HDF appointment) for Shingrix and RSV vaccinations Lab Results Component Value Date HGBA1C 7.2 (A) 10/05/2024 Review of Systems See HPI Objective BP 138/78 (BP Location: Right arm, Patient Position: Sitting, BP Cuff Size: Large adult) Pulse 74 Temp 98.3 ??F (36.8 ??C) (Temporal) Resp 18 Wt 203 lb 12.8 oz (92.4 kg) SpO2 98% BMI 30.10 kg/m?? Physical Exam Constitutional: General: He is not in acute distress. Appearance: Normal appearance. He is not ill-appearing. HENT: Head: Normocephalic and atraumatic. Eyes: General: No scleral icterus. Extraocular Movements: Extraocular movements intact. Pupils: Pupils are equal, round, and reactive to light. Cardiovascular: Rate and Rhythm: Normal rate and regular rhythm. Pulmonary: Effort: Pulmonary effort is normal. No accessory muscle usage or respiratory distress. Breath sounds: Wheezing present. Musculoskeletal: Right lower leg: No edema. Left lower leg: No edema. Neurological: Mental Status: He is alert and oriented to person, place, and time. Psychiatric: Mood and Affect: Mood normal. Behavior: Behavior normal. 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 TTE on 08/24 showed systolic function severely depressed with EF of 15-20% suggestive of grade 2 diastolic dysfunction This is down from 25-30%, 2022. He was previously prescribed LifeVest and did not wear as he found it uncomfortable. Has not seen Dr. Portillo for cardiology follow-up as recommended by hospital at discharge. Gave him phone number today to contact cardiology for appointment IR[place]. Reviewed with him again the severity of his CHF and low EF and need for strict medication compliance and follow-up with specialists. He will restart Lasix 40 mg twice daily today along with Entresto and spironolactone. His other medications have refills at pharmacy and I asked them to fill. If his breathing gets any worse or if hedoes not improve having restarted the Lasix recommend he go to the emergency room this weekend. We discussed the cocaine use and I recommended against using again especially in the context of CHF. He says it is not regular thing and only on special occasions. He also drinks alcohol regularly and is encouraged to decrease. - aspirin (Aspirin Adult Low Strength) 81 MG EC tablet; TAKE 1 TABLET BY MOUTH EVERY MORNING - Entresto 49-51 MG tablet; Take 1 tablet by mouth 2 times daily. - furosemide (Lasix) 40 MG tablet; Take 1 tablet (40 mg) by mouth 2 times daily. - spironolactone (Aldactone) 25 MG tablet; Take 1 tablet (25 mg) by mouth in the morning. - Lipid Panel, Standard; Future - B Type Natriuretic Peptide (BNP); Future - Comprehensive Metabolic Panel; Future - Albumin, Random Urine W/Creatinine; Future - Referral to Pharmacy MTM Hyperlipidemia associated with type 2 diabetes mellitus ([facility]/HCC) Lab Results Component Value Date HGBA1C 7.2 (A) 10/05/2024 A1c near goal despite taking metformin sporadically since March. Pharmacy will fill today. Rereferral to med box Focus today on CHF, at follow-up will update foot exam and discuss CRC screening Moderate persistent asthma without complication - Fluticasone-Salmeterol (Advair Diskus) 250-50 MCG/ACT aerosol powder ; Inhale 1 puff 2 times daily. INHALE 1 PUFF BY MOUTH TWICE DAILY IN THE MORNING AND IN THE EVENING 12 HOURS APART. RINSE MOUTH AFTER USING. - albuterol (Ventolin HFA) 108 (90 Base) MCG/ACT inhaler; Inhale 2 puffs every 6 (six) hours if needed for wheezing or shortness of breath. Chronic obstructive pulmonary disease, unspecified COPD type ([facility]) - albuterol (Ventolin HFA) 108 (90 Base) MCG/ACT inhaler; Inhale 2 puffs every 6 (six) hours if needed for wheezing or shortness of breath. Acute bilateral low back pain without sciatica Patient requests Motrin which I declined and I will send him lidocaine patch to use instead. - lidocaine (Lidoderm) 5 % patch; Apply 1 patch topically Once per day. Remove & discard patch within 12 hours or as directed by . 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 heart failure (CMS/HCC) Expected: 10/05/2024 (Approximate), Expires: 10/05/2025 B Type Natriuretic Peptide (BNP) Lab Routine 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 heart failure (CMS/HCC) Expected: 10/05/2024, Expires: 10/05/2025 Comprehensive Metabolic Panel Lab Routine 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 heart failure (CMS/HCC) Expected: 10/05/2024 (Approximate), Expires: 10/05/2025 Albumin, Random Urine W/Creatinine Lab Routine 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 heart failure (CMS/HCC) Expected: 10/05/2024 (Approximate), Expires: 10/05/2025 Scheduled Referrals Name Type Priority Associated Diagnoses Orde r Schedule Referral to Pharmacy [facility] Outpatient Referral Urgent 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 heart failure (CMS/HCC) Ordered: 10/05/2024 documented as of this encounter Procedures Procedure Name Priority Date/Time Associated Diagnosis Comments POCT GLYCATED HEMOGLOBIN, TOTAL Routine 10/05/2024 3:30 PM EDT Hospital discharge follow-up documented in this encounter Results * (ABNORMAL) POCT HGB A1C (10/05/2024 3:30 PM EDT) Hemoglobin A1C 7.2(A) 4.0 - 6.0 % QC Media Lot # [id number] Lot# Expiration Date 313 Blood 10/05/2024 3:30 PM EDT us Veronique RICH POINT OF CARE TEST ENTER/EDIT OR DERABLES Final Result documented in this encounter Visit Diagnoses Diagnosis Hospital discharge follow-up- Primary Other follow-up examination 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
--- OUTSIDE RECORDS SUMMARY | 2024-10-06 03:27 | XMS_ITS | Encounter Summary ---
Author Organization [employer] Address [address] [facility] 7t [place] [address] Care Team Providers Care Splunk Dashboard Developer Name Role Phone Veronique Gastelum Primary Care Provider [phone] Aguila Portillo MD Unavailable [phone] Encounter Details Date Type Department Care Team (Late st Contact Info) Description 08/20/2022 Orders Only [facility] CHC MED & PEDS [address] [place] [address] Billie Morales LPN Social History Tobacco Use [...] Description 12/04/2024 2:00 PM EDT Office Visit [facility] MEDICINE [address] [place] [address] Veronique Gastelum ANP [address] [place] [address] documented as of this encounter Visit Diagnoses Not on filedocumented in this encounter Care Teams Splunk Dashboard Developer Relationship Specialty Start Date End Date Veronique Gastelum ANP [address] [place] [address] PCP - General Family Medicine 05/29/21 Aguila Portillo MD [address]rd [place] [address] Cardiology 05/24/24 documented as of this encounter
--- OUTSIDE RECORDS SUMMARY | 2024-10-06 03:27 | XMS_ITS | Encounter Summary ---
Author Organization [employer] Address [address] [facility] 7t [place] [address] Care Team Providers Care Delivery Merchandiser Name Role Phone Veronique Gastelum Primary Care Provider [phone] Aguila Portillo MD Unavailable Encounter Details Date Type Department Care Team (Late st Contact Info) Description 06/25/2022 Orders Only [facility] MEDICINE [address] [place] [id number] Saritha Kelley LPN Social History Tobacco Use [...] Description 12/04/2024 2:00 PM EDT Office Visit [facility] MEDICINE [address] [place] [phone] Veronique Gastelum ANP [address] [place] [address] documented as of this encounter Visit Diagnoses Not on filedocumented in this encounter Care Teams Delivery Merchandiser Relationship Specialty Start Date End Date Veronique Gastelum ANP [address] [place] [phone] PCP - General Family Medicine 05/29/21 Aguila Portillo MD [address] [place] [address] Drive 3rd [place] [address] Cardiology 05/24/24 documented as of this encounter
--- OUTSIDE RECORDS SUMMARY | 2024-10-06 03:27 | XMS_ITS | Encounter Summary ---
Author Organization [employer] Address [address] [facility] [address] [place] [address] Care Team Providers Care Maintenance Mechanic Telephone Name Role Phone Veronique Gastelum Primary Care Provider [phone] Aguila Portillo MD Unavailable [phone] Reason for Visit * Reason Onset Date Comments chart prep 10/04/2024 Encounter Details Date Type Department Care Team ([facility] st Contact Info) Description 10/04/2024 Telephone [facility] MEDICINE [address] [place] [address] Veronique Gastelum ANP [address] [place] [address] chart prep Social History Tobacco Use Types Packs/Day Years Used Date Smoking Tobacco: Every Day Cigarettes Smokeless Tobacco: Never Alcohol Use Standard Drinks/Week Comments Yes 0 (1 standard drink = 0.6 oz pur e alcohol) Housing Stability Answer Date Recorded What is your housing situation today? I have gerpernell damon 04/01/[address] you [...] AM EDT documented as of this encounter Miscellaneous Notes * Telephone Encounter - Yesika Izquierdo [place] - 10/04/2024 4:02 PM EDT Chart Prep Labs: done Images: done Vaccines due: Covid Due, PCV20 Due, Flu Due, RSV in Pharmacy Due, and Shingles in pharmacy Due Referrals: Completed Screenings: Colonoscopy , Eye Exam, and Foot Exam Overdue care gaps: A1C, Glucose, Sbirt, SDOH, PQ9, GAD7, Disability , and Oral Health documented in this encounter Plan of Treatment Upcoming Encounters Date Type Department Care Team (Late st Contact Info) Description 12/04/2024 2:00 PM EDT Office Visit [facility] MEDICINE [address] [place] [address] Veronique Gastelum ANP [address] [place] [address] documented as of this encounter Visit Diagnoses Not on filedocumented in this encounter Care Teams Maintenance Mechanic Telephone Relationship Specialty Start Date End Date Veronique Gastelum ANP [address] [place] [phone] PCP - General Family Medicine 05/29/21 Aguila Portillo MD [address] [place] [address] 3rd [place] [address] Cardiology 05/24/24 documented as of this encounter
--- NOTE | 2024-10-06 03:37 | ED_ITS ---
HPI - SOB/Dyspnea General Chief Complaint: Dyspnea Stated Complaint: diff breathing Time Seen by Provider: 10/06/24 03:36 Source: patient Mode of arrival: ambulatory Limitations: no limitations History of Present Illness ED Provider: HPI Narrative: Pt is a 64-year-old male with a PMH significant for?HFrEF (25-30%, 2022), [id number] type 2 diabetes, asthma, HLD, and alcohol use disorder who presents to the ED with?SOB and cough for last 6 hours patient is admitted for acute hypoxic respiratory failure on 08/24 apparently patient did not take his medication including diuretics for last 1 week has a ran out of the medications but he took his medicine today on arrival patient was saturating 88-93% at room air patient noticed increased swelling of the lower extremity Related Data Home Medications ?Medication ?Instructions ?Recorded ?Confirmed fluticasone 250 mcg-salmeterol 50 1 puff inhalation BID 09/16/21 08/24/24 mcg/dose blistr powdr for inhalation (Advair Diskus) metformin 500 mg tablet 500 mg PO BID 10/22/21 08/24/24 cholecalciferol (vitamin D3) 1,250 1,250 mcg PO MO 10/24/21 08/24/24 mcg (50,000 unit) capsule aspirin 81 mg tablet,delayed 81 mg PO DAILY 10/05/23 08/24/24 release (Adult Aspirin Regimen) atorvastatin 40 mg tablet 40 mg PO DAILY 04/07/24 08/24/24 tiotropium bromide 2.5 2 puff inhalation QAM 04/07/24 08/24/24 mcg/actuation mist for inhalation (Spiriva Respimat) empagliflozin 25 mg tablet 25 mg PO DAILY 08/24/24 08/24/24 (Jardiance) Previous Rx's ?Medication ?Instructions ?Recorded furosemide 40 mg tablet 40 mg PO BID@0900,1800 #60 tabs 09/19/21 spironolactone 25 mg tablet 25 mg PO DAILY #30 tabs 09/19/21 sacubitril 49 mg-valsartan 51 mg 1 tab PO BID #60 tabs 09/23/23 tablet (Entresto) albuterol sulfate 90 mcg/actuation 1 inh inhalation Q4-6H PRN 04/08/24 breath activated powder shortness of breath or wheezing #1 inhaler,sensor ea metoprolol succinate 50 mg 50 mg PO DAILY #30 tabs 06/29/24 tablet,extended release 24 hr (Toprol XL) Allergies Allergy/AdvReac Type Severity Reaction Status Date / Time penicillin V Allergy Severe Swollen Verified 10/06/24 03:20 face Penicillins [PENICILLINS] Allergy Severe ANGIOEDEMA Verified 10/06/24 03:20 shellfish derived Allergy Severe ANAPHYLAXIS Verified 10/06/24 03:20 [SHELLFISH DERIVED] Review of Systems 2 Review of Systems: Yes all other systems are reviewed and are negative [facility] Past Medical History Medical History Pulmonary HTN Heart failure with reduced ejection fraction Alcohol abuse Cocaine abuse Noncompliance Asthma Smoker New onset type 2 diabetes mellitus Tobacco abuse Chronic HFrEF (heart failure with reduced ejection fraction) Streptococcus infection, group G Hypertension RVH (right ventricular hypertrophy) Tobacco abuse Elevated troponin Bacteremia Asthma Surgical History S/P cardiac catheterization Hx of appendectomy Family History Family History Mother Breast cancer Social History Social History Household Members: Other Household Members Other:: [facility] Housing: Apartment Do you presently have visiting nurse or other home services: No Alcohol intake: current Alcohol intake frequency: holidays/special occasions only Alcohol type: beer and hard liquor Patient Tobacco Use Status: Current everyday Tobacco user Tobacco use type: Cigarette Cigarette Packs Per Day: 0.5 Cigarettes Per Day: 6 Years Smoked: 25 Smoked in Last 30 Days: Yes e-Cigarette/Vaping Use: Never Used Second Hand Smoke Exposure: No Use of substances other than those prescribed or required for medical reasons: Yes Substance Use Type: Marijuana Advance Directives: Yes Advance Directives on File: Yes Advance Directives Date on File: 02/27/21 Do you have a plan to hurt others: No Plan service: No Current occupational status: employed Physical Exam 2 Vital Signs: Vital Signs: Last Vital Signs Temp 98.2 F 10/06/24 05:38 Pulse 64 10/06/24 05:38 Resp 23 H 10/06/24 05:38 BP 135/95 H 10/06/24 05:38 Pulse Ox 98 10/06/24 05:51 O2 Del Method Nasal Cannula 10/06/24 05:51 O2 Flow Rate 2 10/06/24 05:51 BMI result Body Mass Index 28.4 Appearance: Alert. Oriented X3. No acute distress. Eyes: No pallor or icterus ENT: Pharynx normal. Oral Mucosa moist Neck: Normal inspection. Neck supple. CVS: Normal heart rate and rhythm. Pulses normal. Respiratory: No respiratory distress. Equal air entry bilateral, bilateral wheezing and prolonged expiration with occasional crackles at the bases Abdomen: Soft and nontender. Bowel sounds are present, no mass palpable, no CVA tenderness Skin: Skin warm and dry. Normal skin color. Normal skin turgor. Extremities: 1+ lower extremity edema. No calf tenderness Neuro: Oriented X 3. No motor deficit. No sensory deficit.No cerebellar signs , cranial nerves II-XII intact Medications Administered Discontinued Medications Generic Name Dose Route Start Last Admin Trade Name Freq PRN Reason Stop Dose Admin Albuterol Sulfate 7.5 mg/ 10 mg 10/06/24 03:42 10/06/24 03:48 Albuterol Sulfate 2.5 mg INHALE 10/06/24 03:43 10 mg ONCE ONE Administration Furosemide 40 mg 10/06/24 05:04 10/06/24 05:54 Furosemide 40 Mg/4 Ml Vial IVPUSH 10/06/24 05:05 40 mg ONCE ONE Administration Protocol Methylprednisolone Sodium Succinate 125 mg 10/06/24 03:56 10/06/24 04:11 Methylprednisolone Sod Succ 125 Mg/2 Ml Vial IVPUSH 10/06/24 03:57 125 mg ONCE ONE Administration Medical Decision Making Medical Decision Making [facility] Narrative: Patient's asthma/CHF took his Lasix today ran out of his medication for last 1 week feeling much better after nebulizing treatment when patient is off oxygen and lying down desaturated to 88% will admit patient for CHF exacerbation and asthma patient has received IV Lasix and nebulizing treatment and steroid feeling better Differential Diagnosis Differential Diagnoses: The differential diagnosis associated with the presentation includes CHF/asthma/respiratory failure Admission/Observation Consideration of admission/observation: Escalation of care including admission/observation considered Consult Healthcare Provider Management of the patient was discussed with: Hospitalist Lab Data [facility] Lab Attestation statement: I reviewed the patient's lab results. 10/06/24 03:55 10/06/24 03:55 Labs: Lab Results 10/06/24 10/06/24 10/06/24 Range/Units 03:55 04:01 05:34 WBC 5.9 (4.8-10.8) X10*3/uL RBC 5.15 (4.60-5.80) X10*6/uL Hgb 16.2 (14.0-18.0) g/dl Hct 48.0 (42.0-52.0) % MCV 93.2 (80.0-98.0) fL MCH 31.5 (27.0-33.0) pg MCHC 33.8 (31.0-36.0) g/dl RDW 13.5 (11.0-16.0) % Plt Count 152 L (160-400) X10*3/uL MPV 9.9 (9.4-12.4) fL Immature Gran % (Auto) 0.2 (0.0-0.4) % Neut % (Auto) 53.8 (45-73) % Lymph % (Auto) 28.6 (20-40) % Rowan % (Auto) 9.0 (2-11) % Eos % (Auto) 7.5 H (0-4) % Baso % (Auto) 0.9 (0-2) % Lymph # (Auto) 1.7 (1.2-4.9) X10*3/uL Rowan # (Auto) 0.5 (0.1-1.2) X10*3/uL Eos # (Auto) 0.4 (0.0-0.4) X10*3/uL Baso # (Auto) 0.1 (0.0-0.2) X10*3/uL Abs Immat Gran (auto) 0.01 (0.00-0.03) X10*3/uL Absolute Neuts (auto) 3.2 (2.0-8.3) x10*3/uL Absolute Nucleated RBC 0.000 (0.0-0.012) X10*3/uL Nucleated RBC % (auto) 0.0 (0.0-0.2) /100WBC PT 10.9 (10.9-12.4) SEC INR 0.9 (0.9-1.1) VBG pH 7.37 (7.32-7.43) VBG pCO2 61 mmHg VBG pO2 50 mmHg VBG HCO3 36 H (22-26) mmol/L VBG O2 Saturation 81.0 % VBG Base Excess 8.6 mmol/L Sodium 142 (135-145) mmol/L Potassium 4.5 (3.3-5.1) mmol/L Chloride 103 (96-108) mmol/L Carbon Dioxide 31 H (22-29) mmol/L Anion Gap 13 (12-20) BUN 18 H (9-16) mg/dL Creatinine 1.02 (0.5-1.4) mg/dL Estim Creat Clear Calc 85.0 Estimated GFR > 60 Random Glucose 145 H (60-115) mg/dL Calcium 9.8 (8.4-10.2) mg/dL Total Bilirubin 0.7 (0.0-1.0) mg/dL AST 25 (5-37) U/L ALT 15 (0-40) U/L Alkaline Phosphatase 72 (39-117) U/L Troponin I High Sens 74.1 H 69.0 H (<3.5-35.0) ng/L B-Natriuretic Peptide 1097 H (<100) pg/mL Total Protein 7.5 (6.5-8.0) g/dL Albumin 4.0 (3.5-5.0) g/dL Independent Interpretation I performed an independent interpretation of an: EKG and Plain X-Ray Interpretation: Normal sinus rhythm heart rate 81 beats per minute LVH and incomplete right bundle-branch block poor progression of R-wave no acute ST-elevation Radiology Impression Discussion of test interpretation with radiology: I have reviewed the radiologist's reading. Radiologist Impression: [address] [address] XRay Report Signed Patient: Jerry Sumner MR#: [id number] : 1960 Acct:[id number] Age/Sex: 64 / M ADM Date: 10/06/24 Loc: .ED Attending Dr: Ordering Physician: Jaret Mary MD Date of Service: 10/06/24 Procedure(s): XR chest 1V Accession Number(s): [id number] cc: SERA BELLO CAR PAINTER; Jaret Mary MD~ CLINICAL HISTORY: sob 1 view chest x-ray. Comparison: CR/SR - XR CHEST 1V - 08/24/24 08:25 EDT Findings: There is pulmonary vascular congestion similar to the prior study. The lungs appear otherwise clear. There is no consolidation, effusion, or pneumothorax. Enlargement of the cardiac silhouette is stable. IMPRESSION: Cardiomegaly and pulmonary vascular congestion. This document has been electronically signed by: Palomo Varner MD on 10/06/2024 04:36:35 Discharge Plan Discharge Clinical Impression: Acute on chronic combined systolic (congestive) and diastolic (congestive) heart failure, Asthma exacerbation, Hypoxia Patient Disposition: Admitted As Inpatient
[2024-10-06] MEDS: Albuterol Sulfate 7.5 MG, Albuterol Sulfate (0.083%) 2.5 MG 10 MG INHALE (03:48)
[2024-10-06 04:00] LABS: MANUAL DIFF FLAG NO
[2024-10-06 04:01] LABS: Venous Blood Gas Refer to POC result
[2024-10-06 04:02] LABS: Basophils Absolute Auto 0.1 X10*3/uL (0.0-0.2); Basophils Percent Auto 0.9 % (0-2); Eosinophils Absolute Auto 0.4 X10*3/uL (0.0-0.4); Eosinophils Percent Auto 7.5 % (0-4); Hemoglobin 16.2 g/dl (14.0-18.0); Imm Gran Abs Auto 0.01 X10*3/uL (0.00-0.03); Imm Gran Pct Auto 0.2 % (0.0-0.4); Lymphocytes Absolute Auto 1.7 X10*3/uL (1.2-4.9); Lymphocytes Percent Auto 28.6 % (20-40); Mean Corpuscular HGB Conc 33.8 g/dl (31.0-36.0); Mean Corpuscular Hemoglobin 31.5 pg (27.0-33.0); Mean Corpuscular Volume 93.2 fL (80.0-98.0); Mean Platelet Volume 9.9 fL (9.4-12.4); Monocytes Absolute Auto 0.5 X10*3/uL (0.1-1.2); Neutrophils Absolute Auto 3.2 x10*3/uL (2.0-8.3); Neutrophils Percent Auto 53.8 % (45-73); Platelet Count 152 X10*3/uL (160-400); Red Blood Count 5.15 X10*6/uL (4.60-5.80); Red Cell Distribution Width 13.5 % (11.0-16.0); White Blood Count 5.9 X10*3/uL (4.8-10.8)
[2024-10-06 04:06] LABS: VBG Base Excess 8.6 mmol/L; VBG HCO3 36 mmol/L (22-26); VBG pCO2 61 mmHg; VBG pH 7.37 (7.32-7.43); VBG pO2 50 mmHg
[2024-10-06] MEDS: methylPREDNISolone Sod Succ 125 MG/2 ML VIAL IVPUSH (04:11)
[2024-10-06 04:16] LABS: INTERNATIONAL NORM RATIO 0.9 (0.9-1.1); Prothrombin Time 10.9 SEC (10.9-12.4)
[2024-10-06 04:21] LABS: B Type Natriuretic Peptide 1097 pg/mL (<100); Troponin-I High Sensitivity 74.1 ng/L (<3.5-35.0)
[2024-10-06 04:22] LABS: Alanine Aminotransferase 15 U/L (0-40); Alkaline Phosphatase 72 U/L (39-117); Anion Gap 13 (12-20); Aspartate Amino Transferase 25 U/L (5-37); Bilirubin Total 0.7 mg/dL (0.0-1.0); Blood Urea Nitrogen 18 mg/dL (9-16); Calcium 9.8 mg/dL (8.4-10.2); Carbon Dioxide 31 mmol/L (22-29); Chloride 103 mmol/L (96-108); Estimated Glomerular Filt Rate > 60; Glucose Random 145 mg/dL (60-115); Potassium 4.5 mmol/L (3.3-5.1); Sodium 142 mmol/L (135-145); Total Protein 7.5 g/dL (6.5-8.0)
--- NOTE | 2024-10-06 05:12 | ECG_ITS ---
Test Reason : SOB Blood Pressure : */* mmHG Vent. Rate : 81 BPM Atrial Rate : 81 BPM P-R Int : 178 ms QRS Dur : 112 ms QT Int : 422 ms P-R-T Axes : 48 -71 95 degrees QTcB Int : 490 ms Normal sinus rhythm Possible Left atrial enlargement Incomplete right bundle branch block Left anterior fascicular block Minimal voltage criteria for LVH, may be normal variant ( [place]ham product ) Possible Anteroseptal infarct , age undetermined Abnormal ECG When compared with ECG of 24-Aug-2024 07:03, No significant change was found Referred By: Jaret Mary Electronically Signed By: BERNARD GLASER
--- NOTE | 2024-10-06 05:43 | PC.NURSE ---
upon attempt to ambulate trial, Pt reported feeling lightheaded after sitting at edge of bed, Pt taken off O2, SpO2 destat to 88% on RA. Placed back on 2L of O2 via NC, provider Etta made aware.
[2024-10-06] MEDS: Furosemide 40 MG/4 ML VIAL IVPUSH ×2 (05:54→17:10)
--- NOTE | 2024-10-06 05:57 | P.HPHOSP_ITS ---
History of Present Illness Date of Service: 10/06/24 Chief Complaint: sob 64-year-old male with a past medical history of HTN, HLD, dm, HFrEF, asthma, alcohol use disorder, tobacco dependence, HX and SVT; presented to the hospital today with a chief complaint of shortness of breath. Patient reports that over the past few days he has been having shortness of breath especially on exertion. Reports mild orthopnea. Denies any chest pain or palpitations. Patient denies any fever chills cough or sputum production. Reports that he ran out of his medications and has not been taking his medications for about a week. Reports having increased swelling in his legs. Mentions he drinks about 1 beer of alcohol every day. Denies any GI symptoms Review of all other systems is negative except mentioned above ER course: Per ER team, patient noted to be short of breath, hypoxic on presentation; chest x-ray showed pulmonary congestion consistent with acute CHF. ProBNP elevated to 1000s. Troponin 74. EKG nonischemic. Given Lasix. [facility] Medical History Pulmonary HTN Heart failure with reduced ejection fraction Alcohol abuse Cocaine abuse Noncompliance Asthma Smoker New onset type 2 diabetes mellitus Tobacco abuse Chronic HFrEF (heart failure with reduced ejection fraction) Streptococcus infection, group G Hypertension RVH (right ventricular hypertrophy) Tobacco abuse Elevated troponin Bacteremia Asthma Family History Mother Breast cancer Surgical History S/P cardiac catheterization Hx of appendectomy Social History Household Members: Other Household Members Other:: [facility] Housing: Apartment Do you presently have visiting nurse or other home services: No Alcohol intake: current Alcohol intake frequency: holidays/special occasions only Alcohol type: beer and hard liquor Patient Tobacco Use Status: Current everyday Tobacco user Tobacco use type: Cigarette Cigarette Packs Per Day: 0.5 Cigarettes Per Day: 6 Years Smoked: 25 Smoked in Last 30 Days: Yes e-Cigarette/Vaping Use: Never Used Second Hand Smoke Exposure: No Use of substances other than those prescribed or required for medical reasons: Yes Substance Use Type: Marijuana Advance Directives: Yes Advance Directives on File: Yes Advance Directives Date on File: 02/27/21 Do you have a plan to hurt others: No Plan service: No Current occupational status: employed Meds Allergies Allergy/AdvReac Type Severity Reaction Status Date / Time penicillin V Allergy Severe Swollen Verified 10/06/24 03:20 face Penicillins [PENICILLINS] Allergy Severe ANGIOEDEMA Verified 10/06/24 03:20 shellfish derived Allergy Severe ANAPHYLAXIS Verified 10/06/24 03:20 [SHELLFISH DERIVED] Home Medications ?Medication ?Instructions ?Recorded ?Confirmed ?Last Taken ?Type fluticasone 250 mcg-salmeterol 50 1 puff inhalation BID 09/16/21 08/24/24 04/06/24 11:00 History mcg/dose blistr powdr for inhalation (Advair Diskus) metformin 500 mg tablet 500 mg PO BID 10/22/21 08/24/24 08/24/24 History cholecalciferol (vitamin D3) 1,250 1,250 mcg PO MO 10/24/21 08/24/24 08/24/24 History mcg (50,000 unit) capsule aspirin 81 mg tablet,delayed 81 mg PO DAILY 10/05/23 08/24/24 08/24/24 History release (Adult Aspirin Regimen) atorvastatin 40 mg tablet 40 mg PO DAILY 04/07/24 08/24/24 08/24/24 History tiotropium bromide 2.5 2 puff inhalation QAM 04/07/24 08/24/24 04/06/24 11:00 History mcg/actuation mist for inhalation (Spiriva Respimat) empagliflozin 25 mg tablet 25 mg PO DAILY 08/24/24 08/24/24 08/24/24 History (Jardiance) Physical Exam 2 Vital Signs and Narrative: Vital Signs: Last Vital Signs Temp 98.2 F 10/06/24 05:38 Pulse 64 10/06/24 05:38 Resp 23 H 10/06/24 05:38 BP 135/95 H 10/06/24 05:38 Pulse Ox 98 10/06/24 05:51 O2 Del Method Nasal Cannula 10/06/24 05:51 O2 Flow Rate 2 10/06/24 05:51 BMI result Body Mass Index 28.4 Gen: Appears be in no acute distress HEENT: NCAT, Moist mucosa. Pulmonary: Bilateral crackles present CVS: Normal S1-S2 Abdomen: BS+, Soft, Nontender Extremities: Warm well perfused Neuro: Alert and awake. Results Labs 10/06/24 03:55 10/06/24 03:55 Labs: Laboratory Results - last 24 hr 10/06/24 10/06/24 03:55 04:01 MCV 93.2 MCH 31.5 MCHC 33.8 RDW 13.5 Plt Count 152 L MPV 9.9 Immature Gran % (Auto) 0.2 Neut % (Auto) 53.8 Lymph % (Auto) 28.6 Hamlin % (Auto) 9.0 Eos % (Auto) 7.5 H Baso % (Auto) 0.9 Lymph # (Auto) 1.7 Hamlin # (Auto) 0.5 Eos # (Auto) 0.4 Baso # (Auto) 0.1 Abs Immat Gran (auto) 0.01 Absolute Neuts (auto) 3.2 Absolute Nucleated RBC 0.000 Nucleated RBC % (auto) 0.0 PT 10.9 INR 0.9 VBG pH 7.37 VBG pCO2 61 VBG pO2 50 VBG HCO3 36 H VBG O2 Saturation 81.0 VBG Base Excess 8.6 Anion Gap 13 Estim Creat Clear Calc 85.0 Estimated GFR > 60 Random Glucose 145 H Calcium 9.8 Total Bilirubin 0.7 AST 25 ALT 15 Alkaline Phosphatase 72 B-Natriuretic Peptide 1097 H Total Protein 7.5 Albumin 4.0 Assessment and Plan (1) Congestive heart failure: Qualifiers: Heart failure type: systolic Heart failure chronicity: acute on chronic Qualified Code(s): I50.23 - Acute on chronic systolic (congestive) heart failure Status: Acute Plan 64-year-old male with a past medical history of HTN, HLD, dm, HFrEF, asthma, alcohol use disorder, tobacco dependence, HX and SVT; presented to the hospital today with a chief complaint of shortness of breath. Admitted for following Acute hypoxic respiratory failure: Acute on chronic HFrEF: Demand ischemia: Patient denies any chest pain. EKG nonischemic. Initial troponin 74-repeat troponin pending Chest x-ray concerning for pulmonary congestion. Given a dose of IV Lasix in the ER. Plan -telemetry -daily weights and I's and O's -Lasix 40 mg IV daily -cardiology consult -continue home BP, statin, Entresto Diabetes: Insulin sliding scale History/history: Continue home metoprolol, statin Asthma: Stable. Elvis p.r.nSamaria DVT prophylaxis: Lovenox Code status: Full code Quality Stroke Does the patient have a stroke diagnosis?: No VTE Prior VTE?: No VTE Risk Level:: Medical - moderate - high VTE Device Contraindication: Treatment Not Indicated VTE Drug Contraindication: N/A - Med Ordered
[2024-10-06] MEDS: 0.9 % Sodium Chloride Flush 3 ML SYRINGE IVFLUSH ×3 (07:35→20:52)
[2024-10-06] MEDS: Insulin Lispro 100 UNIT/ML 3 ML VIAL SUBCUT ×4 (07:35→20:51)
[2024-10-06 07:55] LABS: Glucose, Whole Blood 200 mg/dL (60-115)
[2024-10-06 07:57] LABS: Glucose, Whole Blood 281 mg/dL (60-115)
--- NOTE | 2024-10-06 08:17 | MHC.CM.PN ---
Patient lives in an apartment with his Daughter and he required no services nor DME MANAGER QUALITY SYSTEMS. Home self care vs new VNA(CHF) is the tentative plan and CM has initiated and will follow for dc planning. Daughter/Ivonne is the HCP and PCP is Dr. Veronique Gastelum. Patient will arrange his own transport to home.
--- NOTE | 2024-10-06 09:52 | PHA.MEDREC ---
Addendum entered by Aubree Talbert RPh 10/06/24 10:16: Reviewed by [facility] Original Note: Pharmacy Consult ? Medication Reconciliation Pharmacy has completed the medication reconciliation. Spoke with patient and he was a poor historian but had most of his Rx Bottles on hand. Patient confirmed he takes the Vitamin D2 once a week and he confirmed he takes it on Wednesdays and took it this past Wednesday. Patient was not sure if he was still taking Entresto 49mg-51mg tab; Patient pharmacy ([facility]) and they confirmed the patient picked that up, along with all the other medications that were ready. Patient confirmed he picked up all the medications yesterday around 1800 but didn't end up taking them until this AM @0100.
--- NOTE | 2024-10-06 10:56 | PM.EVENT ---
Event Note Date of Service: 10/06/24 Event Note: Chart reviewed patient examined agree with H&P as outlined. Discussed with Cardiology. Minimal change from baseline; presentation secondary to noncompliance. We will increase Lasix to q.12 hours. Question DC in a.m.. Cardiology had nothing to add to treatment plan Time Spent With Patient Time: Total time managing care of this patient today ____ minutes.
[2024-10-06 11:03] LABS: Glucose, Whole Blood 362 mg/dL (60-115)
[2024-10-06] MEDS: Enoxaparin Sodium 40 MG/0.4 ML SYRINGE SUBCUT (11:15)
--- NOTE | 2024-10-06 15:02 | MHC.RECOVRN ---
AUDIT-C Brief Intervention Pt had positive screen for unhealthy alcohol use on admission. Pt declined meeting with ACS, including brief intervention, SHAJI initiation, and appt for outpatient treatment for SHAJI. Yuli Rosado APRN, aware.
[2024-10-06 20:15] LABS: Glucose, Whole Blood 269 mg/dL (60-115)
[2024-10-07 03:02] VITALS: BP 129/80; PULSE 68; RESP 18; TEMP 35.9; O2SAT 98
[2024-10-07 06:55] LABS: MANUAL DIFF FLAG NO
[2024-10-07 07:10] LABS: Anion Gap 13 (12-20); Blood Urea Nitrogen 29 mg/dL (9-16); Calcium 10.3 mg/dL (8.4-10.2); Carbon Dioxide 35 mmol/L (22-29); Chloride 97 mmol/L (96-108); Creatinine Clr Calc Pharmacy 66.7; Estimated Glomerular Filt Rate > 60; Glucose Random 232 mg/dL (60-115); Potassium 4.2 mmol/L (3.3-5.1); Sodium 141 mmol/L (135-145)
[2024-10-07 07:18] LABS: Basophils Percent Auto 0.1 % (0-2); Eosinophils Percent Auto 0.1 % (0-4); Hematocrit 49.5 % (42.0-52.0); Hemoglobin 16.8 g/dl (14.0-18.0); Imm Gran Abs Auto 0.06 X10*3/uL (0.00-0.03); Imm Gran Pct Auto 0.5 % (0.0-0.4); Lymphocytes Absolute Auto 1.8 X10*3/uL (1.2-4.9); Lymphocytes Percent Auto 15.6 % (20-40); Mean Corpuscular HGB Conc 33.9 g/dl (31.0-36.0); Mean Corpuscular Hemoglobin 31.6 pg (27.0-33.0); Mean Corpuscular Volume 93.2 fL (80.0-98.0); Mean Platelet Volume 9.9 fL (9.4-12.4); Monocytes Absolute Auto 0.7 X10*3/uL (0.1-1.2); Monocytes Percent Auto 6.4 % (2-11); Neutrophils Absolute Auto 8.7 x10*3/uL (2.0-8.3); Neutrophils Percent Auto 77.3 % (45-73); Platelet Count 164 X10*3/uL (160-400); Red Blood Count 5.31 X10*6/uL (4.60-5.80); Red Cell Distribution Width 13.1 % (11.0-16.0); White Blood Count 11.3 X10*3/uL (4.8-10.8)
[2024-10-07 07:52] VITALS: BP 136/92; PULSE 69; RESP 18; TEMP 36.7; O2SAT 98
[2024-10-07 07:58] LABS: Glucose, Whole Blood 258 mg/dL (60-115)
--- NOTE | 2024-10-07 08:01 | HO.PM.IMPN ---
Subjective Subjective Date of Service: 10/07/24 Interval History: Seen in follow-up for CHF exacerbation with acute hypoxic respiratory failure Interval history: Reports lightheadedness. Denies shortness of breath, orthopnea, edema, chest pain. No syncope. Reports lightheadedness is with change of position. No vertigo, ear pain, hearing loss, vision changes, headache. Tolerating diet Review of Systems Review of Systems: Yes all other systems are reviewed and are negative Physical Exam Vital Signs: Vital Signs: Last Vital Signs Temp 98.1 F 10/07/24 07:52 Pulse 69 10/07/24 07:52 Resp 18 10/07/24 07:52 BP 136/92 H 10/07/24 07:52 Pulse Ox 98 10/07/24 07:52 O2 Del Method Nasal Cannula 10/07/24 07:52 O2 Flow Rate 2 10/07/24 07:52 BMI result Body Mass Index 25.3 Constitutional - Awake and Alert, No apparent distress Eyes - PERRLA, EOMI Cardiovascular - S1S2, RRR, No edema Respiratory - Normal lung expansion, Normal respiratory effort, No respiratory distress, CTA bilaterally Gastrointestinal - NT / ND; +BS; No rebound or guarding Extremities - no calf tenderness bilaterally, no swelling Skin - Warm/Dry Neurological - Alert & oriented x3 Psychological - Appropriate affect Objective Data Active Medications Acetaminophen (Acetaminophen 325 Mg Tablet) 650 mg PO Q6H PRN PRN Reason: Pain, Mild 1-3,fever,headache Albuterol/Ipratropium (Albuterol/Iprat 2.5/0.5mg 3 Ml Ampul.Neb) 3 ml INHALE Q4H PRN PRN Reason: Shortness of Breath/Wheezing Benzonatate (Benzonatate 100 Mg Capsule) 100 mg PO TID PRN PRN Reason: Cough Calcium Carbonate (Calcium Carbonate 750 Mg Tab.Chew) 750 mg PO Q4H PRN PRN Reason: Heartburn Dextrose (Dextrose 50 % 25 Gm/50 Ml Syringe) 25 gm IVPUSH Q15M PRN; Protocol PRN Reason: per Hypoglycemia Standing Ord. Enoxaparin Sodium (Enoxaparin Sodium 40 Mg/0.4 Ml Syringe) 40 mg SUBCUT Q24H [facility] Last Admin: 10/06/24 11:15 Dose: 40 mg Documented By: WINSOME Furosemide (Furosemide 40 Mg/4 Ml Vial) 40 mg IVPUSH BID@0900,1800 [facility]; Protocol Last Admin: 10/06/24 17:10 Dose: 40 mg Documented By: WINSOME Glucose (Glucose Gel 15 Gm Gel..Gram.) 15 gm PO Q15M PRN; Protocol PRN Reason: per Hypoglycemia Standing Ord. Insulin Human Lispro (Insulin Lispro 100 Unit/Ml 3 Ml Vial) 0 unit SUBCUT QIDACHS [facility]; Protocol Last Admin: 10/06/24 20:51 Dose: 6 unit Documented By: LUIS Magnesium Hydroxide (Milk Of Magnesia 30 Ml Oral.Susp) 30 ml PO DAILY PRN PRN Reason: Constipation Melatonin (Melatonin 3 Mg Tablet) 6 mg PO BEDTIME PRN PRN Reason: Insomnia Sodium Chloride (0.9 % Sodium Chloride Flush 3 Ml Syringe) [facility] Last Admin: 10/06/24 20:52 Dose: 3 ml Documented By: LUIS Labs 10/07/24 06:52 10/07/24 06:52 Labs: Laboratory Results - last 24 hr 10/06/24 10/06/24 10/07/24 10:49 20:08 06:52 MCV 93.2 MCH 31.6 MCHC 33.9 RDW 13.1 Plt Count 164 MPV 9.9 Immature Gran % (Auto) 0.5 H Neut % (Auto) 77.3 H Lymph % (Auto) 15.6 L [place] % (Auto) 6.4 Eos % (Auto) 0.1 Baso % (Auto) 0.1 Lymph # (Auto) 1.8 [place] # (Auto) 0.7 Eos # (Auto) 0.0 Baso # (Auto) 0.0 Abs Immat Gran (auto) 0.06 H Absolute Neuts (auto) 8.7 H Absolute Nucleated RBC 0.000 Nucleated RBC % (auto) 0.0 Anion Gap 13 Estim Creat Clear Calc 66.7 Estimated GFR > 60 POC Glucose 362 H* 269 H Random Glucose 232 H Calcium 10.3 H 10/07/24 07:50 MCV MCH MCHC RDW Plt Count MPV Immature Gran % (Auto) Neut % (Auto) Lymph % (Auto) [place] % (Auto) Eos % (Auto) Baso % (Auto) Lymph # (Auto) [place] # (Auto) Eos # (Auto) Baso # (Auto) Abs Immat Gran (auto) Absolute Neuts (auto) Absolute Nucleated RBC Nucleated RBC % (auto) Anion Gap Estim Creat Clear Calc Estimated GFR POC Glucose 258 H Random Glucose Calcium Assessment and Plan (1) Hypoxia: Status: Acute (2) Acute on chronic combined systolic (congestive) and diastolic (congestive) heart failure: Status: Acute Plan 64-year-old male with a past medical history of HTN, HLD, dm, HFrEF, asthma, alcohol use disorder, tobacco dependence, HX and SVT; presented to the hospital today with a chief complaint of shortness of breath. Admitted for following Acute hypoxic respiratory failure due to acute on chronic HFrEF CXR on arrival showed cardiomegaly and pulmonary vascular congestion BNP 1097 --> 647 Echo 08/24 shows grade 2 diastolic dysfunction with severely decreased LV systolic function with EF 15-20%. Experiencing lightheadedness. ?Overdiuresis. Unfortunately I&O has not been accurately recorded Decrease lasix to 20mg BID Strict I&O Daily weights Consider cardiology consult if needed Continue entresto, jardiance Follow renal function, lytes, trend BNP Continue supplemental O2, wean as tolerated Orthostatic lightheadedness ? r/t overdiuresis. however, repeat cxr still shows vascular congestions and remains hypoxic. See above ddimer negative add small dose midodrine. Monitor [id number] type 2 diabetes Sliding scale insulin continue Jardiance POC glucose, diabetic diet Hold metformin Unspecified asthma No exacerbation Continue albuterol as needed Hypertension Continue metoprolol, Entresto Hyperlipidemia Statin DVT prophylaxis: Lovenox Code status: Full code Patient requires inpatient stay at least 2 midnights for management of acute hypoxemic respiratory failure secondary to CHF exacerbation on IV diuresis requiring close monitoring of intake and output as well as renal function electrolyte levels as well as respiratory status. Quality Stroke Does the patient have a stroke diagnosis?: No VTE Prior VTE?: No VTE Risk Level:: Medical - moderate - high VTE Device Contraindication: Treatment Not Indicated VTE Drug Contraindication: N/A - Med Ordered
[2024-10-07] MEDS: Insulin Lispro 100 UNIT/ML 3 ML VIAL SUBCUT ×3 (08:34→17:19)
[2024-10-07] MEDS: Aspirin Enteric Coated 81 MG TABLET.DR PO (08:34)
[2024-10-07] MEDS: Furosemide 40 MG/4 ML VIAL IVPUSH (08:35)
[2024-10-07] MEDS: Empagliflozin 25 MG TABLET PO (08:35)
[2024-10-07] MEDS: Atorvastatin Calcium 40 MG TABLET PO (08:35)
[2024-10-07] MEDS: Enoxaparin Sodium 40 MG/0.4 ML SYRINGE SUBCUT (08:35)
[2024-10-07] MEDS: Metoprolol Succinate ER 50 MG TAB.ER.24H PO (08:35)
[2024-10-07] MEDS: Sacubitril/Valsartan 49/51 1 TAB TABLET PO ×2 (08:36→19:38)
[2024-10-07] MEDS: 0.9 % Sodium Chloride Flush 3 ML SYRINGE IVFLUSH ×2 (08:38→17:21)
[2024-10-07 09:02] LABS: B Type Natriuretic Peptide 647 pg/mL (<100)
[2024-10-07] MEDS: Fluticasone/Vilanterol 100/25 BLST.W.DEV 1 PUFF INHALE (10:09)
[2024-10-07] MEDS: Spironolactone 25 MG TABLET PO (10:09)
[2024-10-07 11:32] VITALS: BP 106/76; PULSE 57; RESP 18; TEMP 36.5; O2SAT 98
[2024-10-07 11:43] LABS: Glucose, Whole Blood 163 mg/dL (60-115)
--- NOTE | 2024-10-07 13:39 | PC.NURSE ---
This RN applied 2LNC as patients oxygen keeps dipping down to high 70's to 90's while on RA. notified provider.
[2024-10-07 13:51] VITALS: BP 125/87; PULSE 55
[2024-10-07 13:56] VITALS: BMI 28.3
[2024-10-07 14:32] LABS: D Dimer High Sensitivity < 150 NG/ML
[2024-10-07 14:34] LABS: VBG Base Excess 13.8 mmol/L; VBG HCO3 42 mmol/L (22-26); VBG pCO2 66 mmHg; VBG pH 7.41 (7.32-7.43); VBG pO2 29 mmHg
[2024-10-07 14:36] LABS: Venous Blood Gas Refer to POC result
[2024-10-07 15:46] VITALS: BP 125/87; PULSE 58; RESP 20; TEMP 36.4; O2SAT 94
[2024-10-07 16:40] LABS: Glucose, Whole Blood 196 mg/dL (60-115)
[2024-10-07 16:52] LABS: Influenza A PCR NEGATIVE (Negative); Influenza B PCR NEGATIVE (Negative); Resp Syncy Virus RNA Qual PCR NEGATIVE (Negative); SARS COV2 PCR INHOUSE NEGATIVE (Negative)
[2024-10-07] MEDS: Furosemide 40 MG/4 ML VIAL 20 MG IVPUSH (17:20)
[2024-10-07 19:02] VITALS: BP 153/83; PULSE 58; RESP 18; TEMP 35.9; O2SAT 96
--- NOTE | 2024-10-07 19:22 | P.DS_ITS ---
DS: Providers Provider Date of Service: 10/07/24 Date of admission: 10/06/24 05:53 Date of discharge: 10/07/24 Primary care physician: Veronique Gastelum NP DS: Diagnosis Discharge Diagnosis (1) Hypoxia: Status: Acute (2) Acute on chronic combined systolic (congestive) and diastolic (congestive) heart failure: Status: Acute DS: Summary Hospital Course Hospital Course: Against medical advice discharge summary: Patient mentioned that he has some important to take care of at home and he does not want to stay in the hospital. I explained to the patient about the risks of leaving against medical advice which not only include worsening of the current health condition but may even lead to . Patient verbalized that he understood the risks and still wants to leave against medical advice. Patient is strongly advised to follow up with the PCP closely and to take his medications without missing them. Recommended strongly to come to the ER if he develops any symptoms of shortness of breath or any chest pain. Time Attestation Discharge Coordination Time (in mins): Patient left against medical advice Quality: Safe Use of Opioids Does Pt have an Active Cancer Diagnosis on the Problem List?: No Quality: Stroke Does the patient have a stroke diagnosis?: No Physical Exam Vital Signs: Vital Signs: Last Vital Signs Temp 96.7 F L 10/07/24 19:02 Pulse 58 10/07/24 19:02 Resp 18 10/07/24 19:02 BP 153/83 H 10/07/24 19:02 Pulse Ox 96 10/07/24 19:02 O2 Del Method Room Air 10/07/24 19:02 O2 Flow Rate 2 10/07/24 15:46 BMI result Body Mass Index 28.3 DS: Data Data Completed and Pending Labs on day of discharge: Laboratory Results - last 24 hr 10/06/24 10/07/24 10/07/24 20:08 06:52 07:50 WBC 11.3 H RBC 5.31 Hgb 16.8 Hct 49.5 MCV 93.2 MCH 31.6 MCHC 33.9 RDW 13.1 Plt Count 164 MPV 9.9 Immature Gran % (Auto) 0.5 H Neut % (Auto) 77.3 H Lymph % (Auto) 15.6 L [place] % (Auto) 6.4 Eos % (Auto) 0.1 Baso % (Auto) 0.1 Lymph # (Auto) 1.8 [place] # (Auto) 0.7 Eos # (Auto) 0.0 Baso # (Auto) 0.0 Abs Immat Gran (auto) 0.06 H Absolute Neuts (auto) 8.7 H Absolute Nucleated RBC 0.000 Nucleated RBC % (auto) 0.0 D-Dimer High Sensitivty VBG pH VBG pCO2 VBG pO2 VBG HCO3 VBG O2 Saturation VBG Base Excess Sodium 141 Potassium 4.2 Chloride 97 Carbon Dioxide 35 H Anion Gap 13 BUN 29 H Creatinine 1.19 Estim Creat Clear Calc 66.7 Estimated GFR > 60 POC Glucose 269 H 258 H Random Glucose 232 H Calcium 10.3 H B-Natriuretic Peptide 647 H Influenza Type A (PCR) Influenza Type B (PCR) RSV RNA Qual (PCR) SARS-CoV-2 RNA (RT-PCR) 10/07/24 10/07/24 10/07/24 11:37 14:15 14:21 WBC RBC Hgb Hct MCV MCH MCHC RDW Plt Count MPV Immature Gran % (Auto) Neut % (Auto) Lymph % (Auto) [place] % (Auto) Eos % (Auto) Baso % (Auto) Lymph # (Auto) [place] # (Auto) Eos # (Auto) Baso # (Auto) Abs Immat Gran (auto) Absolute Neuts (auto) Absolute Nucleated RBC Nucleated RBC % (auto) D-Dimer High Sensitivty < 150 VBG pH 7.41 VBG pCO2 66 VBG pO2 29 VBG HCO3 42 H VBG O2 Saturation 33.0 VBG Base Excess 13.8 Sodium Potassium Chloride Carbon Dioxide Anion Gap BUN Creatinine Estim Creat Clear Calc Estimated GFR POC Glucose 163 H Random Glucose Calcium B-Natriuretic Peptide Influenza Type A (PCR) Influenza Type B (PCR) RSV RNA Qual (PCR) SARS-CoV-2 RNA (RT-PCR) 10/07/24 10/07/24 15:07 16:36 WBC RBC Hgb Hct MCV MCH MCHC RDW Plt Count MPV Immature Gran % (Auto) Neut % (Auto) Lymph % (Auto) [place] % (Auto) Eos % (Auto) Baso % (Auto) Lymph # (Auto) [place] # (Auto) Eos # (Auto) Baso # (Auto) Abs Immat Gran (auto) Absolute Neuts (auto) Absolute Nucleated RBC Nucleated RBC % (auto) D-Dimer High Sensitivty VBG pH VBG pCO2 VBG pO2 VBG HCO3 VBG O2 Saturation VBG Base Excess Sodium Potassium Chloride Carbon Dioxide Anion Gap BUN Creatinine Estim Creat Clear Calc Estimated GFR POC Glucose 196 H Random Glucose Calcium B-Natriuretic Peptide Influenza Type A (PCR) NEGATIVE Influenza Type B (PCR) NEGATIVE RSV RNA Qual (PCR) NEGATIVE SARS-CoV-2 RNA (RT-PCR) NEGATIVE Discharge Plan Discharge Patient Disposition: Left Against Medical Advice Discharge Diagnosis: CHF Referrals: Veronique Gastelum, [employer] [Primary Care Provider] - 1 Week Discharge Medications: No Action cholecalciferol (vitamin D3) 1,250 mcg (50,000 unit) capsule 1,250 mcg PO WE Entresto 49-51 mg tablet 1 tab PO BID Qty: 60 11RF metoprolol succinate [Toprol XL] 50 mg tablet extended release 24 hr 50 mg PO DAILY Qty: 30 5RF fluticasone propion-salmeterol [Advair Diskus] 250-50 mcg/dose blister with de vice 1 puff inhalation BID spironolactone 25 mg Tablet 25 mg PO DAILY Qty: 30 0RF Protocol: Hold for SBP< HOLD for SBP < : 90 Spiriva Respimat 2.5 mcg/actuation mist 2 puff inhalation DAILY PRN (Reason: COPD) atorvastatin 40 mg tablet 40 mg PO DAILY Rx Instructions: Take 1 tablet at bedtime daily Dose has been increased to 40mg Jardiance 25 mg tablet 25 mg PO DAILY furosemide 40 mg tablet 40 mg PO BID Protocol: Hold for SBP< HOLD for SBP < : 90 albuterol sulfate 90 mcg/actuation aero powdr breath act w/sensor 1 inh inhalation Q4H PRN (Reason: shortness of breath or wheezing) metformin 500 mg tablet 500 mg PO BID aspirin [Adult Aspirin Regimen] 81 mg tablet,delayed release (DR/EC) 81 mg PO DAILY Discharge Orders: Discharge Order (Routine); Ordered 10/07/24 Ordered By: Gabriele Fernando Print Language: Bulgarian Care Plan Goals: pt left AMA Health Concerns: pt left AMA Plan of Treatment: pt left AMA Assessment: Against medical advice discharge note:
--- NOTE | 2024-10-07 19:30 | PC.NURSE ---
patient adamant about leave against medical advice. Taking off gown, making phone calls and stating he needed to go home right away. Patient able to dress self and spoke to Dr. Fernando regarding his reasons for leaving. patient A+Ox3, gait and balance steady, VSS upon discharge. MD made aware and that the patient[place] [facility] is closed until Wednesday. Patient instructed to call his Primary care physician on Wednesday for follow up appointment and medication management. Patient not willing to wait for a complete discharge packet and verbalized he would follow up with his primary care doctor on Wednesday. Patient's own medications retrieved from our pharmacy and patient walked off the unit on his own accord.
[2024-10-07] MEDS: Midodrine HCl 2.5 MG TABLET PO (19:39)
== END 2024-10-07 19:59 | disposition left against medical advice (07) | DRG 194 ==
LOC: HO.ED 03:36 → HO.EDOVER 06:05 → HO.IMC 07:17
PROVIDERS: Hospitalist; Admitting Provider Hospitalist; Emergency Provider Internal Medicine; PCP Nurse Practitioner Primary Care; Visit Provider Physician Assistant
DX: I11.0 Hypertensive heart disease with heart failure (principal); J96.01 Acute respiratory failure with hypoxia; E11.9 Type 2 diabetes mellitus without complications; I50.23 Acute on chronic systolic (congestive) heart failure; E78.5 Hyperlipidemia, unspecified; I95.1 Orthostatic hypotension; J45.909 Unspecified asthma, uncomplicated; F17.210 Nicotine dependence, cigarettes, uncomplicated; Z20.822 Contact with and (suspected) exposure to COVID-19; Z71.6 Tobacco abuse counseling; Z79.51 Long term (current) use of inhaled steroids; Z79.82 Long term (current) use of aspirin; Z79.84 Long term (current) use of oral hypoglycemic drugs; Z79.899 Other long term (current) drug therapy; Z91.148 Patient's other noncompliance with medication regimen for other reason
CPT/HCPCS: 0241U; 36415; 71045; 80048; 80053; 82803; 82947; 83880; 84484; 85025; 85379; 85610; 93005; 94640; 99285; J1650; J1938; J2919

== ENCOUNTER → 2024-10-06 03:42 | Outpatient (BNV) | payer OTHER, SELFPAY | PROVIDERS: Emergency Provider Internal Medicine; PCP Nurse Practitioner Primary Care; Visit Provider Radiology Diagnostic Radiology | DX: J81.1 Chronic pulmonary edema (principal); I51.7 Cardiomegaly | CPT/HCPCS: 71045 ==

== ENCOUNTER → 2024-10-06 05:12 | Outpatient (BNV) | payer OTHER, SELFPAY | PROVIDERS: Admitting Provider Hospitalist; Emergency Provider Internal Medicine; PCP Nurse Practitioner Primary Care; Visit Provider Internal Medicine | DX: R06.02 Shortness of breath (principal); I45.19 Other right bundle-branch block; R94.31 Abnormal electrocardiogram [ECG] [EKG] | CPT/HCPCS: 93010 ==

== ENCOUNTER 2024-10-06 05:53 | Outpatient (BNV) | payer OTHER, SELFPAY | END 2024-10-07 16:05 | PROVIDERS: Admitting Provider Hospitalist; Emergency Provider Internal Medicine; PCP Nurse Practitioner Primary Care; Visit Provider Specialist | DX: J81.1 Chronic pulmonary edema (principal); I51.7 Cardiomegaly | CPT/HCPCS: 71045 ==

== ENCOUNTER → 2024-10-06 05:53 | Outpatient (BNV) | payer OTHER, SELFPAY | PROVIDERS: Admitting Provider Hospitalist; Emergency Provider Internal Medicine; PCP Nurse Practitioner Primary Care; Visit Provider Hospitalist | DX: J96.01 Acute respiratory failure with hypoxia (principal); I50.43 Acute on chronic combined systolic (congestive) and diastolic (congestive) heart failure; I50.23 Acute on chronic systolic (congestive) heart failure | CPT/HCPCS: 99223; 99232; 99499 ==

== ENCOUNTER → 2024-12-29 06:16 | Outpatient (BNV) | payer MEDICAID, SELFPAY | PROVIDERS: Emergency Provider Emergency Medicine; PCP Nurse Practitioner Primary Care; Visit Provider Radiology Diagnostic Radiology | DX: I51.7 Cardiomegaly (principal); J81.0 Acute pulmonary edema | CPT/HCPCS: 71045 ==

== ENCOUNTER 2024-12-29 06:49 | Inpatient (IN) | payer MEDICAID, SELFPAY ==
[2024-12-29] VITALS (8 sets, daily range): BP systolic 100–119; BP diastolic 63–85; PULSE 62–86; RESP 16–25; TEMP 36.3–36.6; O2SAT 86–98; BMI 29.9; BMI 28.3
--- NOTE | 2024-12-29 | ECG_ITS ---
Test Reason : CP Blood Pressure : */* mmHG Vent. Rate : 75 BPM Atrial Rate : 75 BPM P-R Int : 194 ms QRS Dur : 116 ms QT Int : 454 ms P-R-T Axes : 36 -72 35 degrees QTcB Int : 506 ms Sinus rhythm with Premature atrial complexes with Aberrant conduction vs PVC Possible Left atrial enlargement Left axis deviation Left ventricular hypertrophy with QRS widening ( R in aVL , Donny product ) Inferior infarct , age undetermined Anteroseptal infarct (cited on or before 06-Oct-2024) T wave abnormality, consider lateral ischemia Prolonged QT Abnormal ECG When compared with ECG of 06-Oct-2024 05:19, Aberrant conduction is now Present Referred By: Generic ED Physician Electronically Signed By: BERNARD GLASER
--- NOTE | ~2024-12-29 | XR_ITS ---
EXAMINATION: XR CHEST CLINICAL INFORMATION: shortness of breath COMPARISON: 10/07/2024 TECHNIQUE: AP view of the chest was obtained. FINDINGS: There is moderate cardiomegaly. Mediastinal and hilar contours appear normal. There is moderate pulmonary vascular congestion present, similar to the prior exam. Lungs otherwise grossly clear. No pneumothorax or effusion. No focal osseous or soft tissue abnormality. XR/XR chest 1V IMPRESSION: Cardiomegaly and pulmonary vascular congestion, unchanged from the prior exam. Electronically signed by: Negrito Gonzalez MD 12/29/2024 08:00 AM EDT
--- NOTE | 2024-12-29 07:09 | ED.CHESTPAIN ---
HPI - Chest Pain General Chief Complaint: Chest Pain Stated Complaint: chest pain, dyspnea Time Seen by Provider: 12/29/24 07:08 Source: patient Mode of arrival: ambulatory Limitations: no limitations History of Present Illness ED Provider: HPI narrative: 64 yo M with hx of heart failure with reduced ejection fraction, severe LV dysfunction, nonischemic in nature. Suspected alcohol related, he also states he has used cocaine in the past, nothing recent, reports medication noncompliance, it sounds like he spent the last 7 months in [facility] without seeing his PCP or Cardiology, has not been consistent with his medications. Now presenting with worsening shortness of breath during rest and ambulation for the past 2 days. No fevers or chills no hemoptysis. Related Data Home Medications ?Medication ?Instructions ?Recorded ?Confirmed fluticasone 250 mcg-salmeterol 50 1 puff inhalation BID 09/16/21 10/06/24 mcg/dose blistr powdr for inhalation (Advair Diskus) metformin 500 mg tablet 500 mg PO BID 10/22/21 10/06/24 cholecalciferol (vitamin D3) 1,250 1,250 mcg PO WE 10/24/21 10/06/24 mcg (50,000 unit) capsule aspirin 81 mg tablet,delayed 81 mg PO DAILY 10/05/23 10/06/24 release (Adult Aspirin Regimen) atorvastatin 40 mg tablet 40 mg PO DAILY 04/07/24 10/06/24 tiotropium bromide 2.5 2 puff inhalation DAILY PRN COPD 04/07/24 10/06/24 mcg/actuation mist for inhalation (Spiriva Respimat) empagliflozin 25 mg tablet 25 mg PO DAILY 08/24/24 10/06/24 (Jardiance) albuterol sulfate 90 mcg/actuation 1 inh inhalation Q4H PRN shortness 10/06/24 10/06/24 breath activated powder of breath or wheezing inhaler,sensor furosemide 40 mg tablet 40 mg PO BID 10/06/24 10/06/24 Previous Rx's ?Medication ?Instructions ?Recorded spironolactone 25 mg tablet 25 mg PO DAILY #30 tabs 09/19/21 sacubitril 49 mg-valsartan 51 mg 1 tab PO BID #60 tabs 09/23/23 tablet (Entresto) metoprolol succinate 50 mg 50 mg PO DAILY #30 tabs 06/29/24 tablet,extended release 24 hr (Toprol XL) Allergies Allergy/AdvReac Type Severity Reaction Status Date / Time penicillin V Allergy Severe Swollen Verified 12/29/24 07:00 face Penicillins (PENICILLINS) Allergy Severe ANGIOEDEMA Verified 12/29/24 07:00 shellfish derived (SHELLFISH Allergy Severe ANAPHYLAXIS Verified 12/29/24 07:00 DERIVED) Review of Systems Constitutional: Constitutional: Reports as per [facility] Past Medical History Medical History Pulmonary HTN Heart failure with reduced ejection fraction Alcohol abuse Cocaine abuse Noncompliance Asthma Smoker New onset type 2 diabetes mellitus Tobacco abuse Chronic HFrEF (heart failure with reduced ejection fraction) Streptococcus infection, group G Hypertension RVH (right ventricular hypertrophy) Tobacco abuse Elevated troponin Bacteremia Asthma Surgical History S/P cardiac catheterization Hx of appendectomy Family History Family History Mother Breast cancer Social History Social History Household Members: Family Household Members Other:: [facility] Housing: Apartment Do you presently have visiting nurse or other home services: No Alcohol intake: current Alcohol intake frequency: holidays/special occasions only Alcohol type: beer and hard liquor Patient Tobacco Use Status: Current everyday Tobacco user Tobacco use type: Cigarette Cigarette Packs Per Day: 0.5 Cigarettes Per Day: 6 Years Smoked: 25 e-Cigarette/Vaping Use: Never Used Second Hand Smoke Exposure: No Substance Use Type: Marijuana Advance Directives: Yes Advance Directives on File: Yes Advance Directives Date on File: 02/27/21 Do you have a plan to hurt others: No Plan service: No Current occupational status: employed Physical Exam Vital Signs: Vital Signs: Last Vital Signs Temp 97.6 F 12/29/24 06:58 Pulse 67 12/29/24 06:58 Resp 16 12/29/24 06:58 BP 111/63 12/29/24 09:39 Pulse Ox 97 12/29/24 07:05 O2 Del Method Nasal Cannula 12/29/24 07:05 O2 Flow Rate 3 12/29/24 07:05 BMI result Body Mass Index 29.9 Const: Other: Gen: ?Overall well-appearing patient HEENT: Some facial puffiness Neck: Supple, no LAD CV: RRR, no obvious murmurs appreciated Resp: ?No wheezing rales rhonchi no stridor but he does not appear to be dyspneic Abd: ?Bowel sounds are present, no tenderness no rebound no rigidity MSK: FROM, strength 5/5 all extremities Skin: Warm, dry, intact, some lower extremity edema nonpitting Neuro: ?Alert and oriented x3, moving upper and lower extremities symmetrically, no obvious facial asymmetry noted Medications Administered Discontinued Medications Generic Name Dose Route Start Last Admin Trade Name Ajitq PRN Reason Stop Dose Admin Furosemide 40 mg 12/29/24 09:27 12/29/24 09:39 Furosemide 40 Mg/4 Ml Vial IVPUSH 12/29/24 09:28 40 mg ONCE ONE Administration Protocol Medical Decision Making Medical Decision Making [facility] Narrative: 64-year-old patient noncompliant with medications, presented with dyspnea, when he is on room air he is 86%, on 3 L nasal cannula he is 97%, his history of alcohol use that is seems to be remote and intermittent cocaine use he denies ongoing cocaine use, he did state that he has not really taking his medications in the past 2 days and prior to that has been compliant, bedside ultrasound performed images included parasternal long, parasternal short, 4 chamber view and subxiphoid view, he has poor cardiac squeeze LV is large, EF approximately 15-20% consistent with prior echoes, there was no pulmonary edema however, I will obtain CTA to make sure he did develop pulmonary embolus, and then we will anticipate admission we will hold off any furosemide for now, I believe his symptoms are due to cardiomyopathy. 0930: His BNP is over 2000 that is the highest has been, we will order Lasix and also sent a consult To Cardiology to be involved in his care early Dr. David Differential Diagnosis Differential Diagnoses: The differential diagnosis associated with the presentation includes This did differential Admission/Observation Consideration of admission/observation: Escalation of care including admission/observation considered 2022 Emergency Medicine Coding Guide from [employer] on 12/29/2024 All calculations should be rechecked by clinician prior to use RESULT SUMMARY: 5 Estimated Level of Service Problems: High (5) Risk: High (5) Data: Extensive (5) NARRATIVE MDM: This patient's problem complexity is High as patient: with chronic illness(es) with severe exacerbation/progression/side effects. This patient's risk is High due to: overall presentation requiring evaluation for a potentially High-risk process. This patient's data complexity is Extensive due to: -multiple tests ordered/reviewed -external notes reviewed -independent interpretation of imaging or EKG INPUTS: Number and Complexity ?> 1 = 5: chronic illness w/severe exacerbation (a) Risk level ?> 4 = High Tests ordered ?> 3 = =3 Tests results reviewed (excluding labs) ?> 3 = =3 Prior external notes reviewed ?> 3 = =3 Assessment requiring and independent historian ?> 0 = No Independent interpretation of tests ?> 1 = Yes Discussed management/test interpretation w/external professional ?> 0 = No Lab Data MDM Lab Attestation statement: I reviewed the patient's lab results. 12/29/24 07:16 12/29/24 07:16 Labs: Lab Results 12/29/24 Range/Units 07:16 WBC 4.9 (4.8-10.8) X10*3/uL RBC 5.25 (4.60-5.80) X10*6/uL Hgb 16.8 (14.0-18.0) g/dl Hct 49.4 (42.0-52.0) % MCV 94.1 (80.0-98.0) fL MCH 32.0 (27.0-33.0) pg MCHC 34.0 (31.0-36.0) g/dl RDW 14.4 (11.0-16.0) % Plt Count 173 (160-400) X10*3/uL MPV 9.2 L (9.4-12.4) fL Immature Gran % (Auto) 0.2 (0.0-0.4) % Neut % (Auto) 51.7 (45-73) % Lymph % (Auto) 32.0 (20-40) % [place] % (Auto) 10.0 (2-11) % Eos % (Auto) 5.3 H (0-4) % Baso % (Auto) 0.8 (0-2) % Lymph # (Auto) 1.6 (1.2-4.9) X10*3/uL [place] # (Auto) 0.5 (0.1-1.2) X10*3/uL Eos # (Auto) 0.3 (0.0-0.4) X10*3/uL Baso # (Auto) 0.0 (0.0-0.2) X10*3/uL Abs Immat Gran (auto) 0.01 (0.00-0.03) X10*3/uL Absolute Neuts (auto) 2.5 (2.0-8.3) x10*3/uL Absolute Nucleated RBC 0.000 (0.0-0.012) X10*3/uL Nucleated RBC % (auto) 0.0 (0.0-0.2) /100WBC Sodium 144 (135-145) mmol/L Potassium 4.1 (3.3-5.1) mmol/L Chloride 105 (96-108) mmol/L Carbon Dioxide 31 H (22-29) mmol/L Anion Gap 12 (12-20) BUN 17 H (9-16) mg/dL Creatinine 1.46 H (0.5-1.4) mg/dL Estim Creat Clear Calc 58.9 Estimated GFR 49 Random Glucose 282 H (60-115) mg/dL Calcium 8.9 D (8.4-10.2) mg/dL Total Bilirubin 0.8 (0.0-1.0) mg/dL Direct Bilirubin 0.2 (0.0-0.5) mg/dL AST 21 (5-37) U/L ALT 11 (0-40) U/L Alkaline Phosphatase 70 (39-117) U/L Troponin I High Sens 101.5 H* (<3.5-35.0) ng/L B-Natriuretic Peptide 2074 H (<100) pg/mL Total Protein 6.5 (6.5-8.0) g/dL Albumin 3.7 (3.5-5.0) g/dL Lipase 27 (8-78) U/L Independent Interpretation I performed an independent interpretation of an: EKG (75 beats per minute, left axis deviation and left ventricular hypertrophy, very similar to his prior ECG) and Plain X-Ray (Cardiomegaly, some pulmonary vascular congestion, no pneumothorax no mediastinal widening) Radiology Impression Discussion of test interpretation with radiology: I have reviewed the radiologist's reading. Radiologist Impression: Cardiomegaly and pulmonary vascular congestion, unchanged from the prior exam. External Record Review External record reviewed: Inpatient record, Prior outpatient labs and Prior outpatient radiology Chronic Conditions Patient?s care impacted by: Diabetes and Hypertension Critical Care Time Critical Care Time Total Critical Care Time: 45 Attestation: Time is exclusive of separately billable procedures. Time includes: direct patient care, patient reassessment, coordination of patient care, interpretation of data (laboratory data, pulse oximetry, arterial blood gases and chest xrays), review of patient's medical records, medical consultation and documentation of patient care. Procedures excluded from critical care time: central intravenous line placement and electrocardiography. Discharge Plan Discharge Clinical Impression: Cardiomyopathy, Chronic HFrEF (heart failure with reduced ejection fraction) Patient Disposition: Admitted As Inpatient Print Language: Kinyarwanda
--- OUTSIDE RECORDS SUMMARY | 2024-12-29 07:19 | XMS_ITS | Clinical Summary ---
Author Organization [employer] Address [address] [facility] 7[address] [place] [address] Care Team Providers Care Cash Person Name Role Phone Sera Bello Primary Care Provider [phone] Aguila Portillo MD Unavailable [phone] Allergies Active Allergy Reactions Criticality Noted Date Comments Penicillins Angioedema High 08/20/2016 Other Reaction(s): Swollen face Allergy Shellfish-Derived Products Anaphylaxis High 08/21/19 17 Medications ipratropium-alb uterol (Duo-Neb) 0.5-2.5 mg/3 mL nebulizer solutionIndicat ions:Moderate persistent asthma without complication INHALE 1 AMPULE USING A NEBULIZER EVERY 6 HOURS NEEDED FOR WHEEZING OR SHORTNESS OF BREATH 180 mL 3 11/06/19 23 Active ceramides (CeraVe) moisturizing creamIndication s:Dry skin Apply 1 application topically 2 times daily. 453 g 11 05/04/20 23 Active Misc. Devices (Fingertip Pulse Oximeter) miscIndications :COPD exacerbation (CMS/HCC) Use to check O2, go to ER or call 911 if < 92% and not better w/ albuterol 1 each 08/27/19 24 Active empagliflozin (Jardiance) 25 MG TAKE 1 TABLET BY MOUTH EVERY MORNING 90 tablet 1 12/15/19 24 Active Spiriva Respimat 2.5 MCG/ACT inhalerIndicati ons:Chronic obstructive pulmonary disease, unspecified COPD type (CMS/HCC) INHALE 2 PUFFS EVERY MORNING 4 g 11 03/16/20 24 Active atorvastatin (Lipitor) 40 MG tabletIndicatio ns:Hyperlipidem ia associated with type 2 diabetes mellitus (CMS/HCC) TAKE 1 TABLET BY MOUTH EVERY MORNING 90 tablet 3 06/05/20 24 Active FREESTYLE LITE test stripIndication s:Diabetes mellitus with coincident hypertension (CMS/HCC) (CMS/[facility]) TEST BLOOD SUGAR TWICE DAILY 50 strip 11 06/22/19 25 Active metoprolol succinate XL (Toprol-XL) 50 MG 24 hr tablet Take 1 tablet by mouth in the morning. 04/07/20 24 Active aspirin (Aspirin Adult Low Strength) 81 MG EC tabletIndicatio ns: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 heart failure (CMS/HCC) TAKE 1 TABLET BY MOUTH EVERY MORNING 90 tablet 3 10/06/19 25 Active Entresto 49-51 MG tabletIndicatio ns: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 heart failure (CMS/HCC) Take 1 tablet by mouth 2 times daily. 60 tablet 10/06/19 25 Active furosemide (Lasix) 40 MG tabletIndicatio ns: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 heart failure (CMS/HCC) Take 1 tablet (40 mg) by mouth 2 times daily. 180 tablet 3 10/06/19 25 Active spironolactone (Aldactone) 25 MG tabletIndicatio ns: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 heart failure (CMS/HCC) Take 1 tablet (25 mg) by mouth in the morning. 90 tablet 3 10/06/19 25 Active Fluticasone-Elias meterol (Advair Diskus) 250-50 MCG/ACT aerosol powderIndicatio ns:Moderate persistent asthma without complication Inhale 1 puff 2 times daily. INHALE 1 PUFF BY MOUTH TWICE DAILY IN THE MORNING AND IN THE EVENING 12 HOURS APART. RINSE MOUTH AFTER USING. 60 each 2 10/06/19 25 Active albuterol (Ventolin HFA) 108 (90 Base) MCG/ACT inhalerIndicati ons:Moderate persistent asthma without complication,Ch ronic obstructive pulmonary disease, unspecified COPD type (CMS/[facility]) Inhale 2 puffs every 6 (six) hours if needed for wheezing or shortness of breath. 18 g 1 10/06/19 25 Active lidocaine (Lidoderm) 5 % patchIndication s:Acute bilateral low back pain without sciatica Apply 1 patch topically Once per day. Remove & discard patch within 12 hours or as directed by MD. 30 patch 2 10/06/19 25 Active ergocalciferol (Vitamin D2) 1.25 MG (54508 UT) capsule TAKE 1 CAPSULE BY MOUTH ONCE WEEKLY ON WILMER MORNING 12 capsule 1 12/22/19 25 Active metFORMIN (Glucophage) 500 MG tabletIndicatio ns:Hypertension associated with diabetes (CMS/HCC) TAKE 1 TABLET BY MOUTH TWICE DAILY IN THE MORNING AND IN THE EVENING 180 tablet 1 12/28/19 25 Active ergocalciferol (Vitamin D2) 1.25 MG (15730 UT) capsule TAKE 1 CAPSULE BY MOUTH ONCE WEEKLY ON Wednesday 12 capsule 1 10/15/19 24 025 Discontinued metFORMIN (Glucophage) 500 MG tabletIndicatio ns:Hypertension associated with diabetes (CMS/HCC) TAKE 1 TABLET BY MOUTH TWICE DAILY IN THE MORNING AND IN THE EVENING 180 tablet 1 03/07/20 24 025 Discontinued Active Problems Problem Noted Date Diagnosed Date Acute on chronic combined sy stolic and diastolic congestive heart failure 10/05/2024 Asthma-COPD overlap syndrome 03/16/2023 Overview (03/16/2023): PFTs [...] 09/08/2022 Vitamin D deficiency 09/08/2022 Hyperlipidemia associated with type 2 diabetes cara maldonado 08/20/2016 Resolved Problems Problem Noted Date Diagnosed Date Resolved Date Cocaine abuse 08/20/2016 03/16/2023 Encounters Date Type Department Care Team Description 12/27/2024 Refill [facility] [address] [place] [address] Sera Bello ANP Hypertension associated with diabetes (CMS/HCC) 12/21/2024 Refill [facility] [address] [place] [address] Sera Bello ANP 12/04/2024 Telephone [facility] [address] [place] [phone] Sera Bello ANP No Show 12/04/2024 Telephone [facility] [address] [place] [phone] Sera Bello ANP Referral 12/03/2024 Orders Only [facility] [address] [place] [address] Sera Bello ANP Thyromegaly (Primary Dx) 12/01/2024 Telephone [facility] [address] [place] [phone] Sera Bello ANP Appointment Request 10/16/2024 Telephone [facility] [address] [place] [phone] Sera Bello ANP 10/09/2024 Population Health Risk Score [facility] ([facility] Department [address] [place] [address] [phone] Provider, Population Health Generic 10/06/2024 Orders Only GENERIC EXTERNAL DATA DEPARTMENT Provider, Generic External Data 10/05/2024 2:30 PM EDT Office Visit [facility] [place] [address] Sera Bello ANP Hospital discharge follow-up (Primary Dx); 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 heart failure (CMS/HCC); Hyperlipidemia associated with type 2 diabetes mellitus (CMS/[facility]); Moderate persistent asthma without complication; Chronic obstructive pulmonary disease, unspecified COPD type (CMS/HCC); Acute bilateral low back pain without sciatica 10/05/2024 Travel 10/04/2024 Telephone [facility] [address] [place] [address] [phone] Sera Bello ANP chart prep from Last 3 Months Immunizations Immunization Administration Dates Next Due Pfizer Covid-19 Vaccine [...] the past 12 months, has t he [employer], gas, oil or water [employer] threatened to shut off services in your [...] 74 10/05/2024 2:35 PM EDT Temperature 36.8 C (98.3 F) 10/05/2024 2:35 PM EDT Respiratory Rate 18 10/05/2024 2:35 PM EDT Oxygen Saturation 98% 10/05/2024 2:35 PM EDT Inhaled Oxygen Concentration - - Weight 92.4 kg (203 lb 12.8 oz) 10/05/2024 2:35 PM EDT Height 175.3 cm (5' 9 ) 08/27/2023 1:16 PM EDT Body Mass Index 30.1 08/27/2023 1:16 PM EDT Plan of Treatment Health Maintenance Due Date Last Done Comments CT Colonography 1960 Colonoscopy 1960 Colorectal Cancer Screening 1960 FIT DNA/Cologuard 1960 FIT 1960 FOBT 1960 Sigmoidoscopy 1960 Disability Screening 1960 Diabetes: Foot Exam 1970 Eye Exam 1970 Alcohol/Substance Use Screening 1972 Pneumococcal Vaccine: 50+ Years (1 of 2 - PCV) 09/30/1979 Zoster Vaccines (1 of 2) 2010 RSV Patients and Patients Aged 60 years or older (1 - Risk 60-74 years 1-dose series) 2020 Diabetes: Urine Protein Screening 07/22/2022 07/22/2021 Depression Screening 11/06/2023 11/05/2022, 11/06/19 23 SDOH Screening 11/06/2023 11/05/2022 COVID-19 Vaccine (2 - season) 2024 06/12/2021 Lipid Panel 03/08/2024 03/08/2023, 07/22/2021 Diabetes: Hemoglobin A1C 01/04/2025 025, 08/27/2023, 05/04/2023, Additional history exists Influenza Vaccine (#1) 2025 Tobacco Screening 10/05/2025 10/05/2024 DTaP/Tdap/Td Vaccines (2 - Td or Tdap) [...] patient's age to complete this topic Meningococcal B Vaccine Aged Out No l onger eligible based on patient's age to complete [...] Procedure Name Priority Date/Time Associated Diagnosis Comments XR CHEST 1 VIEW Routine 10/07/2024 5:09 PM EDT XR CHEST 1 VIEW Routine 10/06/2024 4:36 AM EDT VENOUS BLOOD GAS Routine 10/06/2024 4:01 AM EDT COMPREHENSIVE METABOLIC PANEL Routine 10/06/2024 3:55 AM EDT B TYPE NATRIURETIC PEPTIDE (BNP) Routine 10/06/2024 3:55 AM EDT HIGH SENSITIVITY TROPONIN I Routine 10/06/2024 3:55 AM EDT PROTHROMBIN TIME-INR Routine 10/06/2024 3:55 AM EDT CBC WITH AUTO DIFFERENTIAL Routine 10/06/2024 3:55 AM EDT POCT GLYCATED HEMOGLOBIN, TOTAL Routine 10/05/2024 3:30 PM EDT Hospital discharge follow-up LIPID PANEL, STANDARD Routine 03/08/2023 1:17 PM EDT ZZZ HISTORICAL HEPATITIS C AB W/REFL TO HCV RNA, QN, PCR Routine 07/22/2021 4:23 PM EST HIV 1/2 ANTIGEN/ANTIBODY, FOURTH GENERATION W/RFL Routine 07/22/2021 4:23 PM EST ALBUMIN, RANDOM URINE W/CREATININE Routine 07/22/2021 4:23 PM EST from Last 3 Months or Most Recently Relevant to Health Maintenance Results * XR Chest 1 View (10/07/2024 5:09 PM EDT) Only the most recent of2 resultswithin the time period is included. Anatomical Region Laterality Modality Chest Radiographic Thu ging 10/07/2024 5:09 PM EDT Narrative 10/07/2024 5:10 PM EDT [place] [address] XRay Report Signed Patient: Jerry Sumner MR#: [id number] 66 : 1960 Acct:[id number] Age/Sex: 64 / M ADM Date: 10/06/24 Loc: [facility] 444-[address]: Melissa HAND Ordering Physician: Melissa Pozo Date of Service: 10/07/24 Procedure(s): XR chest 1V Accession Number(s): [id number] cc: Melissa Pozo; SERA BELLO NP CLINICAL HISTORY: sob, lightheadedness 1 view chest x-ray Comparison: 10/06/2024 Findings: The heart is enlarged. Prominence of pulmonary vasculature. No consolidation, significant pleural effusion or pneumothorax. No acute fracture. IMPRESSION: 1. Cardiomegaly and pulmonary vascular congestion with no significant interval change. This document has been electronically signed by: Lisa Glover MD on 10/07/2024 17:09:15 Dictated By: Lisa Glover MD Signed By: <Electronically signed by Lisa Glover MD in OV> 10/07/24 171 DD/ 08 TD/TT: 10/07/241708 Line Assembler: Procedure Note Donotuseinterpreter, Image - 10/07/[address] [address] XRay Report Signed Patient: Jerry Sumner DMR#: [id number] 66 : 1960cct:[id number] Age/Sex: 64 / MADM Date: 10/06/24 Loc: [facility] 444-[address]: Melissa HAND Ordering Physician: Melissa Pozo Date of Service: 10/07/24 Procedure(s): XR chest 1V Accession Number(s): [id number] cc: Melissa Pozo; SERA BELLO NP CLINICAL HISTORY: sob, lightheadedness 1 view chest x-ray Comparison: 10/06/2024 Findings: The heart is enlarged. Prominence of pulmonary vasculature. No consolidation, significant pleural effusion or pneumothorax. No acute fracture. IMPRESSION: 1. Cardiomegaly and pulmonary vascular congestion with no significant interval change. This document has been electronically signed by: Lisa Glover MD on 10/07/2024 17:09:15 Dictated By: Lisa Glover MD Signed By: <Electronically signed by Lisa Glover MD in OV> 10/07/24 1710 DD/ 08 TD/TT: 10/07/241708 Line Assembler: [facility] External Provider IMG XR PROCEDURES Edited Result - Final * (ABNORMAL) VENOUS BLOOD GAS (10/06/2024 4:01 AM EDT) VBG pH 7.37 7.32 - 7.43 [facility] Comment:METER #: [id number] additional_comment: Cb serranx VBG PCO2 61 mmHg [facility] Comment:METER #: [id number] additional_comment: Cb serranx VBG PO2 50 mmHg [facility] Comment:METER #: [id number] additional_comment: Cb serranx VBG Base Excess 8.6 mmol/L [facility] Comment:METER #: [id number] additional_comment: Cb serranx VBG HCO3 36(H) 22 - 26 mmol/L [facility] Comment:METER #: [id number] additional_comment: Yobani valdes O2 Sat, Abisai 81.0 % [facility] Comment:METER #: [id number] additional_comment: Yobani valdes 10/06/2024 4:01 AM EDT 10/06/2024 4:05 AM EDT Generic External Data Provider LAB BLOOD ORDERAB LES Final Result Performing Organization Address [facility] Co de Phone Number [facility] [address] [place] [phone] * (ABNORMAL) High Sensitivity Troponin I (10/06/2024 3:55 AM EDT) Pathologist [facility] TROPONIN I HIGH SENSITIVITY 74.1(H) <3.5 - 35.0 ng/L [facility] Comment:The Sosa high sens itivity Troponin-I results should beused in conjunction with other diagnostic information suchas ECG, clinical observations and information, and patientsymptoms to aid in the diagnosis of CA. 10/06/2024 3:55 AM EDT 10/06/2024 3:59 AM EDT Generic External Data Provider LAB BLOOD ORDERAB LES Final Result Performing Organization Address [facility] Co de Phone Number [facility] [address] [place] [phone] * (ABNORMAL) CBC auto differential (10/06/2024 3:55 AM EDT) White Blood Count 5.9 4.8 - 10.8 X10*3/uL [facility] Red Blood Count 5.15 4.60 - 5.80 X10*6/uL [facility] Hemoglobin 16.2 14.0 - 18.0 g/dl [facility] Hematocrit 48.0 42.0 - 52.0 % [facility] Mean Corpuscular Volume 93.2 80.0 - 98.0 fL [facility] Mean Corpuscular Hemoglobin 31.5 27.0 - 33.0 pg [facility] Mean Corpuscular HGB Conc 33.8 31.0 - 36.0 g/dl [facility] Red Cell Distribution Width 13.5 11.0 - 16.0 % [facility] Platelet Count 152(L) 160 - 400 X10*3/uL [facility] Mean Platelet Volume 9.9 9.4 - 12.4 fL [facility] Neutrophils Percent Auto 53.8 45 - 73 % [facility] Imm Gran Pct Auto 0.2 0.0 - 0.4 % [facility] Lymphocytes Percent Auto 28.6 20 - 40 % [facility] Monocytes Percent Auto 9.0 2 - 11 % [facility] Eosinophils Percent Auto 7.5(H) 0 - 4 % [facility] Basophils Percent Auto 0.9 0 - 2 % [facility] NRBC Pct Auto 0.0 0.0 - 0.2 /100WBC [facility] Neutrophils Absolute Auto 3.2 2.0 - 8.3 x10*3/uL [facility] Imm Gran Abs Auto 0.01 0.00 - 0.03 X10*3/uL [facility] Lymphocytes Absolute Auto 1.7 1.2 - 4.9 X10*3/uL [facility] Monocytes Absolute Auto 0.5 0.1 - 1.2 X10*3/uL [facility] Eosinophils Absolute Auto 0.4 0.0 - 0.4 X10*3/uL [facility] Basophils Absolute Auto 0.1 0.0 - 0.2 X10*3/uL [facility] NRBC Abs Auto 0.000 0.0 - 0.012 X10*3/uL [facility] 10/06/2024 3:55 AM EDT 10/06/2024 3:59 AM EDT us Generic External Data Provider LAB BLOOD ORDERAB LES Final Result Performing Organization Address City/State/[facility] Co de Phone Number [facility] [address] [place] [phone] * Prothrombin Time-INR (10/06/2024 3:55 AM EDT) [facility] Prothrombin Time 10.9 10.9 - 12.4 SEC [facility] INTERNATIONAL NORM RATIO 0.9 0.9 - 1.1 [facility] Comment:INTERNATIONAL NORMAL IZED RATIO (INR) REFERENCE RANGES Reference RangeFor patients not on anticoagulant therapy: 0.9 - 1.1INR ranges for oral anticoagulanttherapy:For prevention and treatment of venous thrombosis and pulmonary embolism: 2.0 - 3.0For acute myocardial infarction with aspirin therapy: 2.0 - 3.0For acute myocardial infarction without aspirin therapy: 3.0 - 4.0For patients with mechanical prosthetic heart valves: 2.5 - 3.5 10/06/2024 3:55 AM EDT 10/06/2024 4:06 AM EDT us Generic External Data Provider LAB BLOOD ORDERAB LES Final Result Performing Organization Address [facility] Co de Phone Number [facility] [address] [place] [phone] * (ABNORMAL) B Type Natriuretic Peptide (BNP) (10/06/2024 3:55 AM EDT) [facility] B Type Natriuretic Peptide 1,097(H) <100 pg/mL [facility] 10/06/2024 3:55 AM EDT 10/06/2024 3:59 AM EDT Generic External Data Provider LAB BLOOD ORDERAB LES Final Result Performing Organization Address [facility] Co de Phone Number [facility] [address] [place] [phone] * (ABNORMAL) Comprehensive Metabolic Panel (10/06/2024 3:55 AM EDT) [facility] Sodium 142 135 - 145 mmol/L [facility] Potassium 4.5 3.3 - 5.1 mmol/L [facility] Comment:Slight Hemolysis.Int erpret result with caution. Chloride 103 96 - 108 mmol/L [facility] Carbon Dioxide 31(H) 22 - 29 mmol/L [facility] Anion Gap 13 12 - 20 [facility] Urea Nitrogen (BUN) 18(H) 9 - 16 mg/dL [facility] Creatinine, Serum 1.02 0.5 - 1.4 mg/dL [facility] Creatinine Clr Calc Pharmacy 85.0 [facility] Comment:eGFR (calculated fro m the MDRD study equation) and eCrCl(calculated from the Cockcroft-Gault equation) are based ondifferent parameters and may not yield comparable results.If eCrCl result is absurd, please check patient'sheight/weight. Estimated Glomerular Filt Rate >60 [facility] Comment:Chronic Kidney Disea se: Estimated GFR < 60 mL/min/[id number] Kidney Disease: Estimated GFR < 15 mL/min/1.73m2 Glucose 145(H) 60 - 115 mg/dL [facility] Calcium 9.8 8.4 - 10.2 mg/dL [facility] Bilirubin, Total 0.7 0.0 - 1.0 mg/dL [facility] Aspartate Amino Transferase 25 5 - 37 U/L [facility] Comment:Slight Hemolysis.Int erpret result with caution. Alanine Aminotransferase 15 0 - 40 U/L [facility] Total Protein 7.5 6.5 - 8.0 g/dL [facility] Albumin Level 4.0 3.5 - 5.0 g/dL [facility] Alkaline Phosphatase 72 39 - 117 U/L [facility] 10/06/2024 3:55 AM EDT 10/06/2024 3:59 AM EDT us Generic External Data Provider LAB BLOOD ORDERAB LES Final Result [facility] [address] [place] [address] [phone] * (ABNORMAL) POCT HGB A1C (10/05/2024 3:30 PM EDT) Hemoglobin A1C 7.2(A) 4.0 - 6.0 % QC Media Lot # [id number] Lot# Expiration Date [id number] Blood 10/05/2024 3:30 PM EDT Sera Bello ANP POINT OF CARE TEST ENTER/EDIT OR DERABLES Final Result * (ABNORMAL) Lipid Panel, Standard (03/08/2023 1:17 PM EDT) Triglycerides 229(H) <150 mg/dL [facility] Comment:Desirable Triglyceri de: less than 150 mg/dLBorderline High Triglyceride 150-199 mg/dLHigh Triglyceride: 200-499 mg/dLVery High Triglyceride: greater than or equal to 5OO mg/dL Cholesterol 281(H) <200 mg/dL [facility] Comment:Desirable Cholestero l: less than 200 mg/dLBorderline High Cholesterol: 200-239 mg/dLHigh Cholesterol: greater than 239 mg/dL LDL Cholesterol Calculated 182(H) <100 mg/dL [facility] Comment:Desirable LDL: less than 100 mg/dLNear Optimal/Above Optimal LDL: 110- 129 mg/dLBorderline High LDL: 130-159 mg/dLHigh LDL: 160-189 mg/dLVery High LDL: greater than or equal to 190 mg/dL HDL Cholesterol 54 >40 mg/dL [facility] Comment:Desirable HDL: great er than 40 mg/dL Note: This HDL assay may give artificially low results in patients with liver disease. 03/08/2023 1:17 PM EDT 03/08/2023 1:17 PM EDT Generic External Data Provider LAB BLOOD ORDERAB LES Final Result [facility] [address] [place] [address] [phone] * HEPATITIS C AB W/REFL TO HCV RNA, QN, PCR (07/22/2021 4:23 PM EST) HEPATITIS C ANTIBODY NON-REACT [facility] NON-REACT [facility] INDEX 0.05 <1.00 [facility] Comment: HCV antibody was non-reactive. There is no laboratory evidence of HCV infection. In most cases, no further action is required. However, if recent HCV exposure is suspected, a test for HCV RNA (test code 68512) is suggested. For additional information please refer to http://education.[employer]rafuse/faq/SJT88s2 (This link is being provided for informational/ educational purposes only.) 07/22/2021 4:23 PM EST us Sera Bello ANP HISTORICAL/NON ORDERABLE LABS Fi nal Result Performing Organization Address [facility] [address] * (ABNORMAL) ALBUMIN, RANDOM URINE W/CREATININE (07/22/2021 4:23 PM EST) Microalbumin Urine 74.2 See Note: mg/dL [facility] Comment: Reference Range: Reference Range Not established Verified by repeat analysis. Microalb/Creat Ratio 422(H) <30 mcg/mg creat [facility] Comment: The ADA defines abnormalities in albumin excretion as follows: Albuminuria Category Result (mcg/mg creatinine) Normal to Mildly increased <30 Moderately increased 30-299 Severely increased > OR = 300 The ADA recommends that at least two of three specimens collected within a 3-6 month period be abnormal before considering a patient to be within a diagnostic category. Creatinine, Urine 176 20 - 320 mg/dL [facility] 07/22/2021 4:23 PM EST us Sera Bello ANP LAB URINE ORDERABLES Final Resul t Performing Organization Address [facility] [address] * HIV 1/2 ANTIGEN/ANTIBODY,FOURTH GENERATION W/RFL (07/22/2021 4:23 PM EST) HIV-1/2 ANTIGEN AND ANTIBODIES, 4TH GENERATION W/ REFLEX NON-REACT [facility] NON-REACT [facility] Comment: HIV-1 antigen and HIV-1/HIV-2 antibodies were not detected. There is no laboratory evidence of HIV infection. PLEASE NOTE: This information has been disclosed to you from records whose confidentiality may be protected by state law. If your state requires such protection, then the state law prohibits you from making any further disclosure of the information without the specific written consent of the person to whom it pertains, or as otherwise permitted by law. A general authorization for the release of medical or other information is NOT sufficient for this purpose. For additional information please refer to http://education.Centrafuse/faq/UVD949 (This link is being provided for informational/ educational purposes only.) The performance of this assay has not been clinically validated in patients less than 2 years old. 07/22/2021 4:23 PM EST [facility] LAB BLOOD ORDERABLES Final Resul t [facility] [address] from Last 3 Months or Most Recently Relevant to Health Maintenance Insurance [address] [place], [place] [address] [facility] Care Teams Cash Person Relationship Specialty Start Date End Date Sera Bello ANP [address] [place] [phone] PCP - General Family Medicine 05/29/21 Aguila Portillo MD [address] [place] [address] [address] [place] [address] Cardiology 05/24/24
[2024-12-29 07:20] LABS: MANUAL DIFF FLAG NO
[2024-12-29 07:21] LABS: Hematocrit 49.4 % (42.0-52.0); Hemoglobin 16.8 g/dl (14.0-18.0); Imm Gran Abs Auto 0.01 X10*3/uL (0.00-0.03); Imm Gran Pct Auto 0.2 % (0.0-0.4); Lymphocytes Absolute Auto 1.6 X10*3/uL (1.2-4.9); Mean Corpuscular HGB Conc 34.0 g/dl (31.0-36.0); Mean Corpuscular Hemoglobin 32.0 pg (27.0-33.0); Mean Corpuscular Volume 94.1 fL (80.0-98.0); NRBC Abs Auto 0.000 X10*3/uL (0.0-0.012); NRBC Pct Auto 0.0 /100WBC (0.0-0.2); Platelet Count 173 X10*3/uL (160-400); Red Blood Count 5.25 X10*6/uL (4.60-5.80); White Blood Count 4.9 X10*3/uL (4.8-10.8)
[2024-12-29 07:33] LABS: Anion Gap 12 (12-20); Blood Urea Nitrogen 17 mg/dL (9-16); Calcium 8.9 mg/dL (8.4-10.2); Carbon Dioxide 31 mmol/L (22-29); Chloride 105 mmol/L (96-108); Creatinine Clr Calc Pharmacy 58.9; Estimated Glomerular Filt Rate 49; Potassium 4.1 mmol/L (3.3-5.1); Sodium 144 mmol/L (135-145)
[2024-12-29 07:44] LABS: Troponin-I High Sensitivity 101.5 ng/L (<3.5-35.0)
--- NOTE | 2024-12-29 07:54 | MHC.EDTECH ---
@07:50 urine cup and urinal given to the patient for urine sample.
[2024-12-29 07:59] LABS: Alanine Aminotransferase 11 U/L (0-40); Albumin Level 3.7 g/dL (3.5-5.0); Alkaline Phosphatase 70 U/L (39-117); Aspartate Amino Transferase 21 U/L (5-37); Lipase 27 U/L (8-78); Total Protein 6.5 g/dL (6.5-8.0)
[2024-12-29 08:17] LABS: B Type Natriuretic Peptide 2074 pg/mL (<100)
[2024-12-29] MEDS: Furosemide 40 MG/4 ML VIAL IVPUSH ×2 (09:39→16:32)
[2024-12-29 11:10] LABS: Troponin-I High Sensitivity 100.6 ng/L (<3.5-35.0)
--- NOTE | 2024-12-29 11:12 | PC.NURSE ---
Patients troponin 101.5 now coming a little down 100.6. IV lasix given did not provide urine sample ran to bathroom. tele: Sinus rythym with pac's Patient is admitted awaiting bed assignment.
--- NOTE | 2024-12-29 11:21 | PM.IMHP ---
History of Present Illness Date of Service: 12/29/24 Chief Complaint: sob 64M PMH etoh dependence, non ischemic cardiomyopathy EF 10-15%, DM, presented with sob. Patient states he has been noncompliant with his medications. He has been having shortness breath for about 2 days prior to presentation. Positive orthopnea. Also midsternal chest discomfort radiating to left shoulder. Denies fever, chills, cough. In ED noted to have elevated BNP, chest x-ray with pulmonary edema, hypoxic to 89% on room air. [facility] Medical History Pulmonary HTN Heart failure with reduced ejection fraction Alcohol abuse Cocaine abuse Noncompliance Asthma Smoker New onset type 2 diabetes mellitus Tobacco abuse Chronic HFrEF (heart failure with reduced ejection fraction) Streptococcus infection, group G Hypertension RVH (right ventricular hypertrophy) Tobacco abuse Elevated troponin Bacteremia Asthma Family History Mother Breast cancer Surgical History S/P cardiac catheterization Hx of appendectomy Social History Household Members: Family Household Members Other:: [facility] Housing: Apartment Do you presently have visiting nurse or other home services: No Alcohol intake: current Alcohol intake frequency: holidays/special occasions only Alcohol type: beer and hard liquor Patient Tobacco Use Status: Current everyday Tobacco user Tobacco use type: Cigarette Cigarette Packs Per Day: 0.5 Cigarettes Per Day: 6 Years Smoked: 25 e-Cigarette/Vaping Use: Never Used Second Hand Smoke Exposure: No Substance Use Type: Marijuana Advance Directives: Yes Advance Directives on File: Yes Advance Directives Date on File: 02/27/21 Do you have a plan to hurt others: No Plan service: No Current occupational status: employed Meds Allergies Allergy/AdvReac Type Severity Reaction Status Date / Time penicillin V Allergy Severe Swollen Verified 12/29/24 07:00 face Penicillins (PENICILLINS) Allergy Severe ANGIOEDEMA Verified 12/29/24 07:00 shellfish derived (SHELLFISH Allergy Severe ANAPHYLAXIS Verified 12/29/24 07:00 DERIVED) Active Medications: Current Medications Acetaminophen (Acetaminophen 325 Mg Tablet) 650 mg PO Q6H PRN PRN Reason: Pain, Mild 1-3,fever,headache Calcium Carbonate (Calcium Carbonate 750 Mg Tab.Chew) 750 mg PO Q4H PRN PRN Reason: Heartburn Dextrose (Dextrose 50 % 25 Gm/50 Ml Syringe) 25 gm IVPUSH Q15M PRN; Protocol PRN Reason: per Hypoglycemia Standing Ord. Enoxaparin Sodium (Enoxaparin Sodium 40 Mg/0.4 Ml Syringe) 40 mg SUBCUT Q24H ELANA Furosemide (Furosemide 40 Mg/4 Ml Vial) 40 mg IVPUSH BID@0900,1800 ELANA; Protocol Glucose (Glucose Gel 15 Gm Gel..Gram.) 15 gm PO Q15M PRN; Protocol PRN Reason: per Hypoglycemia Standing Ord. Insulin Human Lispro (Insulin Lispro 100 Unit/Ml 3 Ml Vial) 0 unit SUBCUT QIDACHS [facility]; Protocol Magnesium Hydroxide (Milk Of Magnesia 30 Ml Oral.Susp) 30 ml PO DAILY PRN PRN Reason: Constipation Melatonin (Melatonin 3 Mg Tablet) 6 mg PO BEDTIME PRN PRN Reason: Insomnia Sodium Chloride (0.9 % Sodium Chloride Flush 3 Ml Syringe) 3 ml IVFLUSH QSHIFT [facility] Home Medications ?Medication ?Instructions ?Recorded ?Confirmed ?Last Taken ?Type fluticasone 250 mcg-salmeterol 50 1 puff inhalation BID 09/16/21 10/06/24 10/05/24 History mcg/dose blistr powdr for inhalation (Advair Diskus) metformin 500 mg tablet 500 mg PO BID 10/22/21 10/06/24 10/05/24 History cholecalciferol (vitamin D3) 1,250 1,250 mcg PO WE 10/24/21 10/06/24 10/04/24 History mcg (50,000 unit) capsule aspirin 81 mg tablet,delayed 81 mg PO DAILY 10/05/23 10/06/24 10/05/24 History release (Adult Aspirin Regimen) atorvastatin 40 mg tablet 40 mg PO DAILY 04/07/24 10/06/24 10/05/24 History tiotropium bromide 2.5 2 puff inhalation DAILY PRN COPD 04/07/24 10/06/24 10/05/24 History mcg/actuation mist for inhalation (Spiriva Respimat) empagliflozin 25 mg tablet 25 mg PO DAILY 08/24/24 10/06/24 10/05/24 History (Jardiance) albuterol sulfate 90 mcg/actuation 1 inh inhalation Q4H PRN shortness 10/06/24 10/06/24 10/05/24 History breath activated powder of breath or wheezing inhaler,sensor furosemide 40 mg tablet 40 mg PO BID 10/06/24 10/06/24 10/05/24 History ergocalciferol (vitamin D2) 1,250 1,250 mcg PO QWEEK 12/29/24 Unknown History mcg (50,000 unit) capsule Physical Exam Vital Signs and Narrative: Vital Signs: Last Vital Signs Temp 97.6 F 12/29/24 06:58 Pulse 67 12/29/24 06:58 Resp 16 12/29/24 06:58 BP 111/63 12/29/24 09:39 Pulse Ox 97 12/29/24 07:05 O2 Del Method Nasal Cannula 12/29/24 07:05 O2 Flow Rate 3 12/29/24 07:05 BMI result Body Mass Index 29.9 General: AO X 3, no acute distress Resp: CTA bilateral, no accessory muscles used CVS: S1,S2,RRR GI: soft, non tender, non distended Neuro: motor grossly intact, alert Psych: appropriate affect, appropriate insight Results Labs 12/29/24 07:16 12/29/24 07:16 Labs: Laboratory Results - last 24 hr 12/29/24 07:16 MCV 94.1 MCH 32.0 MCHC 34.0 RDW 14.4 Plt Count 173 MPV 9.2 L Immature Gran % (Auto) 0.2 Neut % (Auto) 51.7 Lymph % (Auto) 32.0 [place] % (Auto) 10.0 Eos % (Auto) 5.3 H Baso % (Auto) 0.8 Lymph # (Auto) 1.6 [place] # (Auto) 0.5 Eos # (Auto) 0.3 Baso # (Auto) 0.0 Abs Immat Gran (auto) 0.01 Absolute Neuts (auto) 2.5 Absolute Nucleated RBC 0.000 Nucleated RBC % (auto) 0.0 Anion Gap 12 Estim Creat Clear Calc 58.9 Estimated GFR 49 Random Glucose 282 H Calcium 8.9 D Total Bilirubin 0.8 Direct Bilirubin 0.2 AST 21 ALT 11 Alkaline Phosphatase 70 B-Natriuretic Peptide 2074 H Total Protein 6.5 Albumin 3.7 Lipase 27 Imaging Radiologist's Impressions: Impressions Chest X-Ray 12/29/24 06:16 IMPRESSION: Cardiomegaly and pulmonary vascular congestion, unchanged from the prior exam. Electronically signed by: Negrito Gonzalez MD 12/29/2024 08:00 AM EDT RP Assessment and Plan (1) Alcohol use: Status: Acute Plan 64M PMH etoh dependence, non ischemic cardiomyopathy EF 10-15%, DM, presented with sob Acute hypoxic respiratory failure due to acute on chronic systolic CHF IV Lasix, wean O2 as tolerated Will add back neural hormonal if blood pressure tolerates Diabetes Check A1c, insulin sliding scale Alcohol dependence Monitor CIWA DVT prophylaxis with Lovenox Full Code Quality Stroke Does the patient have a stroke diagnosis?: No VTE Prior VTE?: No VTE Risk Level:: Medical - moderate - high VTE Device Contraindication: Treatment Not Indicated VTE Drug Contraindication: N/A - Med Ordered
[2024-12-29 12:19] LABS: Glucose, Whole Blood 129 mg/dL (60-115)
[2024-12-29 12:48] LABS: Cannabinoid Screen Urine Not Detected (Not Detect)
--- NOTE | 2024-12-29 12:52 | PHA.MEDREC ---
Addendum entered by Jeffrey Valdes RPh 12/29/24 13:00: Reviewed by [facility] Original Note: Pharmacy Consult ? Medication Reconciliation Pharmacy has completed the medication reconciliation. Spoke with pt and he confirmed his medications. Pt states he stopped the Baby Aspirin a couple months ago. He confirmed the Vitamin D2 tablet once a week on Wednesdays; pt states he hasn't taken this in at least 2-3 weeks.
[2024-12-29 12:58] LABS: Hemoglobin A1C 236.6103 umol/L; Total Hemoglobin (HGBA1C) 4276.4540 umol/L
[2024-12-29 16:19] LABS: Glucose, Whole Blood 164 mg/dL (60-115)
--- NOTE | 2024-12-29 16:19 | PC.NURSE ---
Patient refuses addiction medicine consultation , refused consultation and refused treatment for his addiction of alcohol and cocaine . Refused smoking cessation.
[2024-12-29] MEDS: 0.9 % Sodium Chloride Flush 3 ML SYRINGE IVFLUSH ×2 (16:30→20:34)
[2024-12-29 20:31] LABS: Glucose, Whole Blood 200 mg/dL (60-115)
[2024-12-29] MEDS: Throat Lozenge, Medicated LOZENGE 1 LOZENGE MUCOUS MEM (22:43)
[2024-12-29 22:46] LABS: Glucose, Whole Blood 136 mg/dL (60-115)
[2024-12-30 04:00] VITALS: BP 125/78; PULSE 91; RESP 20; TEMP 36.3; O2SAT 93
[2024-12-30 07:57] LABS: Glucose, Whole Blood 110 mg/dL (60-115)
[2024-12-30 08:00] VITALS: BP 130/82; PULSE 80; RESP 18; TEMP 36.2; O2SAT 95
[2024-12-30 08:17] LABS: Hematocrit 51.0 % (42.0-52.0); Hemoglobin 17.4 g/dl (14.0-18.0); Mean Corpuscular HGB Conc 34.1 g/dl (31.0-36.0); Mean Corpuscular Hemoglobin 31.4 pg (27.0-33.0); Mean Corpuscular Volume 91.9 fL (80.0-98.0); NRBC Abs Auto 0.000 X10*3/uL (0.0-0.012); NRBC Pct Auto 0.0 /100WBC (0.0-0.2); Platelet Count 172 X10*3/uL (160-400); Red Blood Count 5.55 X10*6/uL (4.60-5.80); White Blood Count 5.6 X10*3/uL (4.8-10.8)
[2024-12-30] MEDS: Metoprolol Succinate ER 50 MG TAB.ER.24H PO (08:19)
[2024-12-30] MEDS: Furosemide 40 MG/4 ML VIAL IVPUSH (08:19)
[2024-12-30] MEDS: 0.9 % Sodium Chloride Flush 3 ML SYRINGE IVFLUSH (08:20)
[2024-12-30 08:25] LABS: Anion Gap 13 (12-20); Blood Urea Nitrogen 20 mg/dL (9-16); Calcium 9.6 mg/dL (8.4-10.2); Carbon Dioxide 33 mmol/L (22-29); Chloride 102 mmol/L (96-108); Creatinine Clr Calc Pharmacy 77.0; Estimated Glomerular Filt Rate > 60; Magnesium 1.9 mg/dL (1.6-2.6); Potassium 3.9 mmol/L (3.3-5.1); Sodium 144 mmol/L (135-145)
--- NOTE | 2024-12-30 09:55 | PM.DS ---
DS: Providers Provider Date of Service: 12/30/24 Date of admission: 12/29/24 09:41 Date of discharge: 12/30/24 Primary care physician: Veronique Gastelum NP DS: Diagnosis Discharge Diagnosis (1) Alcohol use: Status: Acute DS: Summary Hospital Course Hospital Course: from initial hpi: 64M PMH etoh dependence, non ischemic cardiomyopathy EF 10-15%, DM, presented with sob. Patient states he has been noncompliant with his medications. He has been having shortness breath for about 2 days prior to presentation. Positive orthopnea. Also midsternal chest discomfort radiating to left shoulder. Denies fever, chills, cough. In ED noted to have elevated BNP, chest x-ray with pulmonary edema, hypoxic to 89% on room air. hospital course: Patient was admitted for acute hypoxic respiratory failure due to acute on chronic systolic CHF related to alcoholic cardiomyopathy due to noncompliance. Was treated with IV Lasix and weaned off oxygen. Patient improved faster than expected will be discharged back home he is educated on the importance of compliance with his medications. For diabetes was continued on insulin sliding scale. For alcohol dependence did not go into withdrawal. Time Attestation Discharge Coordination Time (in mins): 33 Quality: Safe Use of Opioids Does Pt have an Active Cancer Diagnosis on the Problem List?: No Quality: Stroke Does the patient have a stroke diagnosis?: No Physical Exam Exam: Exam: General: AO X 3, no acute distress Resp: CTA bilateral, no accessory muscles used CVS: S1,S2,RRR GI: soft, non tender, non distended Neuro: motor grossly intact, alert Psych: appropriate affect, appropriate insight Vital Signs: Vital Signs: Last Vital Signs Temp 97.2 F 12/30/24 08:00 Pulse 80 12/30/24 08:00 Resp 18 12/30/24 08:00 BP 130/82 12/30/24 08:00 Pulse Ox 95 12/30/24 08:00 O2 Del Method Room Air 12/30/24 08:00 O2 Flow Rate 1 12/30/24 04:00 BMI result Body Mass Index 28.3 DS: Data Data Completed and Pending Labs on day of discharge: Laboratory Results - last 24 hr 12/29/24 12/29/24 12/29/24 10:40 11:58 12:05 WBC RBC Hgb Hct MCV MCH MCHC RDW Plt Count MPV Absolute Nucleated RBC Nucleated RBC % (auto) Sodium Potassium Chloride Carbon Dioxide Anion Gap BUN Creatinine Estim Creat Clear Calc Estimated GFR POC Glucose 129 H Random Glucose Estimat Average Glucose Hemoglobin A1c % Calcium Magnesium Troponin I High Sens 100.6 H* Urine Opiates Screen Not Detected Ur Buprenorphine Scrn Not Detected Ur Oxycodone Screen Not Detected Urine Methadone Screen Not Detected Urine Fentanyl Screen Not Detected Ur Barbiturates Screen Not Detected Ur Phencyclidine Scrn Not Detected Ur Amphetamines Screen Not Detected U Benzodiazepines Scrn Not Detected Urine Cocaine Screen POSITIVE H U Marijuana (THC) Screen Not Detected 12/29/24 12/29/24 12/29/24 12:15 16:15 20:28 WBC RBC Hgb Hct MCV MCH MCHC RDW Plt Count MPV Absolute Nucleated RBC Nucleated RBC % (auto) Sodium Potassium Chloride Carbon Dioxide Anion Gap BUN Creatinine Estim Creat Clear Calc Estimated GFR POC Glucose 164 H 200 H Random Glucose Estimat Average Glucose 160 Hemoglobin A1c % 7.2 H Calcium Magnesium Troponin I High Sens Urine Opiates Screen Ur Buprenorphine Scrn Ur Oxycodone Screen Urine Methadone Screen Urine Fentanyl Screen Ur Barbiturates Screen Ur Phencyclidine Scrn Ur Amphetamines Screen U Benzodiazepines Scrn Urine Cocaine Screen U Marijuana (THC) Screen 12/29/24 12/30/24 12/30/24 22:40 07:29 07:50 WBC 5.6 RBC 5.55 Hgb 17.4 Hct 51.0 MCV 91.9 MCH 31.4 MCHC 34.1 RDW 13.8 Plt Count 172 MPV 10.1 Absolute Nucleated RBC 0.000 Nucleated RBC % (auto) 0.0 Sodium 144 Potassium 3.9 Chloride 102 Carbon Dioxide 33 H Anion Gap 13 BUN 20 H Creatinine 1.09 Estim Creat Clear Calc 77.0 Estimated GFR > 60 POC Glucose 136 H 110 Random Glucose 103 Estimat Average Glucose Hemoglobin A1c % Calcium 9.6 D Magnesium 1.9 Troponin I High Sens Urine Opiates Screen Ur Buprenorphine Scrn Ur Oxycodone Screen Urine Methadone Screen Urine Fentanyl Screen Ur Barbiturates Screen Ur Phencyclidine Scrn Ur Amphetamines Screen U Benzodiazepines Scrn Urine Cocaine Screen U Marijuana (THC) Screen Discharge Plan Discharge Anticipated Discharge Date/Time: 12/30/24 09:54 Patient Disposition: Home, Self-Care Discharge Diagnosis: chf Referrals: Veronique Gastelum [employer] [Primary Care Provider, Internal Medicine] - 1 Week Discharge Medications: Continued metoprolol succinate [Toprol XL] 50 mg tablet extended release 24 hr 50 mg PO DAILY Qty: 30 5RF spironolactone 25 mg Tablet 25 mg PO DAILY Qty: 30 0RF Protocol: Hold for SBP< HOLD for SBP < : 90 atorvastatin 40 mg tablet 40 mg PO DAILY Rx Instructions: Take 1 tablet at bedtime daily Dose has been increased to 40mg furosemide 40 mg tablet 40 mg PO BID Protocol: Hold for SBP< HOLD for SBP < : 90 albuterol sulfate 90 mcg/actuation aero powdr breath act w/sensor 1 inh inhalation Q4H PRN (Reason: shortness of breath or wheezing) ergocalciferol (vitamin D2) 1,250 mcg (50,000 unit) capsule 1,250 mcg PO WE metformin 500 mg tablet 500 mg PO BID Discharge Orders: Discharge Order (Routine); Ordered 12/30/24 Ordered By: Harvinder Danielle Diet: Advance to usual diet Activity on Discharge: As tolerated Stand Alone Forms: Patient Portal Discharge page Print Language: [place] Care Plan Goals: recovery, manage chf Health Concerns: chf, etoh Plan of Treatment: take meds as prescribed, avoid alcohol Assessment: see above
--- NOTE | 2024-12-30 12:06 | MHC.CM.PN ---
Pt was discharged prior to being seen by this CM, he was discharged home self-care, and arranged his own transport home.
== END 2024-12-30 10:56 | disposition home or self-care (01) | DRG 194 ==
LOC: HO.ED 09:42 → HO.EDOVER 13:36 → HO.IMC 14:39
PROVIDERS: Admitting Provider Internal Medicine; Emergency Provider Emergency Medicine; PCP Nurse Practitioner Primary Care; Visit Provider Internal Medicine
DX: I50.23 Acute on chronic systolic (congestive) heart failure (principal); J96.01 Acute respiratory failure with hypoxia; F17.210 Nicotine dependence, cigarettes, uncomplicated; F10.20 Alcohol dependence, uncomplicated; I42.6 Alcoholic cardiomyopathy; Z91.148 Patient's other noncompliance with medication regimen for other reason; Z91.199 Patient's noncompliance with other medical treatment and regimen due to unspecified reason; Z71.6 Tobacco abuse counseling; Z79.84 Long term (current) use of oral hypoglycemic drugs; Z79.899 Other long term (current) drug therapy
CPT/HCPCS: 36415; 71045; 80048; 80076; 80307; 82947; 83036; 83690; 83735; 83880; 84484; 85025; 85027; 93005; 99285; J1938

== ENCOUNTER → 2024-12-29 06:51 | Outpatient (BNV) | payer MEDICAID, SELFPAY | PROVIDERS: Admitting Provider Internal Medicine; Emergency Provider Emergency Medicine; PCP Nurse Practitioner Primary Care; Visit Provider Internal Medicine | DX: I49.1 Atrial premature depolarization (principal); I51.7 Cardiomegaly; I25.2 Old myocardial infarction | CPT/HCPCS: 93010 ==

== ENCOUNTER → 2024-12-29 07:14 | Outpatient (BNV) | payer MEDICAID, SELFPAY | PROVIDERS: Emergency Provider Emergency Medicine; PCP Nurse Practitioner Primary Care; Visit Provider Internal Medicine | DX: Z78.9 Other specified health status (principal) | CPT/HCPCS: 99223; 99239 ==

== ENCOUNTER 2025-01-17 06:39 | Inpatient (IN) | payer SELFPAY ==
[2025-01-17] VITALS (9 sets, daily range): BP systolic 122–147; BP diastolic 88–111; PULSE 85–117; RESP 14–28; TEMP 36.4–37; O2SAT 86–96; BMI 27.9
--- NOTE | ~2025-01-17 | XR_ITS ---
EXAMINATION: XR CHEST 1 VIEW HISTORY: sob COMPARISON: Comparison is made with the prior examination dated 12/29/2024. FINDINGS: A single AP portable view of the chest performed at 7:50 AM is submitted. There is mild prominence of the pulmonary vasculature, consistent with congestion. There is no pleural effusion or pneumothorax. The heart remains enlarged. The bones are intact. XR/XR chest 1V IMPRESSION: Cardiomegaly and mild pulmonary vascular congestion. Electronically signed by: Cecilio Dean MD 01/17/2025 08:04 AM EDT
--- NOTE | 2025-01-17 07:00 | ECG_ITS ---
Test Reason : sob Blood Pressure : */* mmHG Vent. Rate : 94 BPM Atrial Rate : 94 BPM P-R Int : 178 ms QRS Dur : 108 ms QT Int : 386 ms P-R-T Axes : 46 -75 36 degrees QTcB Int : 482 ms Sinus rhythm with Premature supraventricular complexes and with occasional Premature ventricular complexes Incomplete right bundle branch block Left anterior fascicular block Minimal voltage criteria for LVH, may be normal variant ( Donny product ) Cannot rule out Inferior infarct (cited on or before 29-Dec-2024) Anteroseptal infarct (cited on or before 06-Oct-2024) Abnormal ECG When compared with ECG of 29-Dec-2024 06:51, Nonspecific T wave abnormality has replaced inverted T waves in Lateral leads Referred By: Generic ED Physician Electronically Signed By: BERNARD GLASER
--- NOTE | 2025-01-17 07:01 | PC.NURSE ---
patient ambulated to car to retrieve cell phone. upon entering bed 1, patient oxygen found to be 83% on room air. placed back on nasal cannula 2L at 94%.
[2025-01-17 08:27] LABS: MANUAL DIFF FLAG NO
[2025-01-17 08:30] LABS: Hematocrit 43.6 % (42.0-52.0); Hemoglobin 14.7 g/dl (14.0-18.0); Imm Gran Abs Auto 0.04 X10*3/uL (0.00-0.03); Imm Gran Pct Auto 0.6 % (0.0-0.4); Lymphocytes Absolute Auto 1.5 X10*3/uL (1.2-4.9); Mean Corpuscular HGB Conc 33.7 g/dl (31.0-36.0); Mean Corpuscular Hemoglobin 31.5 pg (27.0-33.0); Mean Corpuscular Volume 93.4 fL (80.0-98.0); NRBC Abs Auto 0.000 X10*3/uL (0.0-0.012); NRBC Pct Auto 0.0 /100WBC (0.0-0.2); Platelet Count 270 X10*3/uL (160-400); Red Blood Count 4.67 X10*6/uL (4.60-5.80); White Blood Count 6.9 X10*3/uL (4.8-10.8)
[2025-01-17 08:31] LABS: VBG HCO3 42 mmol/L (22-26); VBG O2 % Saturation 65.0 %
[2025-01-17 08:43] LABS: Alanine Aminotransferase 11 U/L (0-40); Albumin Level 3.2 g/dL (3.5-5.0); Alkaline Phosphatase 82 U/L (39-117); Anion Gap 10 (12-20); Aspartate Amino Transferase 19 U/L (5-37); Blood Urea Nitrogen 16 mg/dL (9-16); Calcium 9.1 mg/dL (8.4-10.2); Carbon Dioxide 35 mmol/L (22-29); Chloride 103 mmol/L (96-108); Creatinine Clr Calc Pharmacy 97.7; Estimated Glomerular Filt Rate > 60; Potassium 4.0 mmol/L (3.3-5.1); Sodium 144 mmol/L (135-145); Total Protein 6.9 g/dL (6.5-8.0)
[2025-01-17 08:43] LABS: Venous Blood Gas Refer to POC result
[2025-01-17 08:50] LABS: Troponin-I High Sensitivity 83.1 ng/L (<3.5-35.0)
--- NOTE | 2025-01-17 09:01 | ED_ITS ---
HPI - General Adult General Chief complaint: Dyspnea Stated complaint: Dyspnea Time Seen by Provider: 01/17/25 08:59 Source: patient Mode of arrival: ambulatory Limitations: no limitations History of Present Illness ED Provider: Teresa Cordon PA-C HPI narrative: Patient is a 64 year old male with a past medical history of CHF, asthma, cardiomyopathy, and type 2 diabetes mellitus presenting with difficulty breathing over the last 4 hours. The patient woke up with morning feeling like he couldn't breath. He used his breathing treatment at home which did not help so he came to the hospital. He says that walking makes it worse. The patient did not take his medications this morning but he says he has been good about taking them everyday. He was hospitalized 10/07/2023 for 2 days for acute on chronic CHF. He additionally endorses weakness, dry cough. He also endorses a bruise like pain near his left lower rib hat is worse with coughing. He denies recent fevers, chills, headache, chest pain, abdominal pain, n/v/d, dysuria, swelling in the extremities. Onset (ago): hour(s) (4) Pain Consistency: constant Relieving factors: rest Exacerbating factors: movement Associated symptoms: cough, shortness of breath and weakness Treatments prior to arrival: other (nebulizer treatment - no improvement) Related Data Home Medications ?Medication ?Instructions ?Recorded ?Confirmed metformin 500 mg tablet 500 mg PO BID 10/22/2112/29 atorvastatin 40 mg tablet 40 mg PO DAILY 04/07/2412/12 albuterol sulfate 90 mcg/actuation 1 inh inhalation Q4 H PRN shortness 10/06/24 12/29/24 breath activated powder of breath or wheezing inhaler,sensor furosemide 40 mg tablet 40 mg PO BID 10/06/24 ergocalciferol (vitamin D2) 1,250 1,250 mcg PO WE 12/1212/29/24 mcg (50,000 unit) capsule Previous Rx's ?Medication ?Instructions ?Recorded spironolactone 25 mg tablet 25 mg PO DAILY #30 tabs metoprolol succinate 50 mg 50 mg PO DAILY #30 tabs tablet,extended release 24 hr (Toprol XL) Allergies Allergy/AdvReac Type Severity Reaction Status Date / Time penicillin V Allergy Severe Swollen Verified 01/17/25 06:47 face Penicillins (PENICILLINS) Allergy Severe ANGIOEDEMA Verified 01/17/25 06:47 shellfish derived (SHELLFISH Allergy Severe ANAPHYLAXIS Verified 01/17/25 06:47 DERIVED) Review of Systems 2 Constitutional: Constitutional: Denies chills, Denies fever(s), Denies night sweats and Reports weakness Eyes: Eyes: Reports no additional eye complaints and Denies change in vision ENT: Denies dizziness Cardiovascular: Cardiovascular: Denies chest pain, Denies pedal edema, Denies lightheadedness, Denies Loss of Consciousness and Reports dyspnea Respiratory: Respiratory: Reports chest congestion, Reports cough, Reports pain with cough and Reports dyspnea Gastrointestinal: Gastrointestinal: Denies abdominal pain and Denies change in bowel habits Genitourinary: Genitourinary: Reports no additional male genitourinary complaints, Denies difficulty urinating and Denies dysuria Musculoskeletal: Musculoskeletal: Reports no additional musculoskeletal complaints Neurologic: Denies dizziness and Reports weakness Psychiatric: Psychiatric: Reports no additional psychiatric complaints Endocrine: Endocrine: Reports no additional endocrine complaints Hematologic/Lymphatic: Hematologic/Lymphatic: Reports no additional hematologic/lymphatic complaints Allergic/Immunologic: Allergic/Immunologic: Reports no additional allergic/immunologic complaints [facility] Past Medical History Attestation statement: The following information was validated with the patient. Source: old records reviewed and nursing notes reviewed Medical History Pulmonary HTN Heart failure with reduced ejection fraction Alcohol abuse Cocaine abuse Noncompliance Asthma Smoker New onset type 2 diabetes mellitus Tobacco abuse Chronic HFrEF (heart failure with reduced ejection fraction) Streptococcus infection, group G Hypertension RVH (right ventricular hypertrophy) Tobacco abuse Elevated troponin Bacteremia Asthma Surgical History S/P cardiac catheterization Hx of appendectomy Family History Family History Mother Breast cancer Social History Social History Household Members: None Household Members Other:: [facility] Housing: Apartment Do you presently have visiting nurse or other home services: No Unable to assess alcohol history related to: Unknown Alcohol intake: current Alcohol intake frequency: 0-2 drinks per day Alcohol type: beer and hard liquor Patient Tobacco Use Status: Current everyday Tobacco user Tobacco use type: Cigarette Cigarette Packs Per Day: 0.5 Cigarettes Per Day: 2 Years Smoked: 25 Smoked in Last 30 Days: No e-Cigarette/Vaping Use: Never Used Second Hand Smoke Exposure: No Use of substances other than those prescribed or required for medical reasons: Unknown Substance Use Type: Marijuana Advance Directives: Yes Advance Directives on File: Yes Advance Directives Date on File: 02/27/21 service: No Current occupational status: employed Physical Exam ED Vital Signs: Vital Signs - 24 hr 01/17/25 06:44 01/17/25 07:39 01/17/25 09:39 Temperature 98.1 F Pulse Rate 105 H 117 H 108 H Respiratory Rate 22 H 22 H 28 H Blood Pressure 147/111 H 143/95 H Pulse Oximetry 86 L 96 96 Oxygen Delivery Method Room Air Nasal Cannula Nasal Cannula Oxygen Flow Rate 2 1 BMI result Body Mass Index 27.9 Const General: cooperative, no acute distress, alert, awake and tired appearing Nutritional Appearance: well nourished Orientation/consciousness: patient oriented x3 HENMT Head: Yes normal to inspection and Yes atraumatic Ears: hearing grossly normal bilaterally and external ears normal General nose exam: Normal external nose present, no nasal discharge noted and no epistaxis Face and sinus: Yes normal facial exam, No abrasion and No laceration Mouth: Normal oral and palatal mucosa present, no drooling and no muffled voice Eyes General: appearance normal, both eyes and all related structures Periorbital: periorbital findings normal Eyelids: Yes eyelids normal Conjunctivae: conjunctivae normal Pupils: Equal, round and reactive pupils present EOM: EOMs intact bilaterally Neck Neck: Yes normal visual inspection and Yes full ROM Resp Effort & Inspection: able to speak in complete sentences Auscultation: crackles on the left in the lower lung harmon and wheezes (bilateral wheeze in the upper lobes) Cardio Rate: regular rate Rhythm: regular rhythm GI Inspection: Yes normal to inspection and Yes distended Palpation (GI): Firmness to palpation present (GI) and nontender Percussion: Yes normal to percussion Auscultation: normal bowel sounds Skin General skin exam: no rashes or lesions noted Neuro General: patient oriented x3, moves all extremities and CN's II-XI intact bilaterally Cranial nerves: Yes Equal, round and reactive pupils present Cognition (Neuro): normal cognition Extrem General: Yes normal to inspection, Yes full ROM and Yes capillary refill normal Psych Appearance: grossly normal Mental Status: mental status grossly normal Affect: normal affect Attitude: cooperative Thought process: Normal thought process present Thought content: Normal thought content present Insight: Good insight present (Psych) Medications Administered Discontinued Medications Generic Name Dose Route Start Last Admin Trade Name Josselin PRN Reason Stop Dose Admin Furosemide 20 mg 01/17/25 09:42 01/17/25 10:31 Furosemide 20 Mg/2 Ml Vial IVPUSH 01/17/25 09:43 20 mg ONCE ONE Administration Protocol Methylprednisolone Sodium Succinate 60 mg 01/17/25 10:07 01/17/25 10:32 Methylprednisolone Sod Succ 125 Mg/2 Ml Vial IVPUSH 01/17/25 10:08 60 mg ONCE ONE Administration Medical Decision Making Medical Decision Making [facility] Narrative: Patient is a 64 year old assigned male at with a history of CHF, asthma, cardiomyopathy, and type 2 diabetes mellitus presenting to the emergency department today with increased shortness of breath. Patient's physical exam was as noted in the physical exam portion of this note. Patient was initially hypoxic at 86% on room air, once placed on nasal cannula oxygenation and increased to 94%. Patient had evidence of a CHF exacerbation on examination. Patient's blood work showed an initial troponin of 83.1 however, reviewing his previous labs he appears to have a chronically elevated troponin. Patient's BNP was 1837. Patient's EKG was unremarkable. Patient's chest x-ray showed cardiomegaly and mild pulmonary vascular congestion. Patient was given 20mg of IV lasix. I spoke with the hospitalist team who agreed to admission for CHF exacerbation. I explained my physical exam findings as well as all test results to the patient. I answered all questions asked by the patient. Patient verbalized agreement and understanding with this treatment plan and admission. Differential Diagnosis Differential Diagnoses: The differential diagnosis associated with the presentation includes Hypoxia CHF exacerbation Asthma exacerbation Admission/Observation Consideration of admission/observation: Escalation of care including admission/observation considered Patient admitted as noted in the [facility] Rationale portion of this note. Consult Healthcare Provider Management of the patient was discussed with: Hospitalist (agreed to admission as noted in the MDM Rationale portion of this note.) Lab Data [facility] Lab Attestation statement: I reviewed the patient's lab results. My interpretation of these results are in the MDM Rationale portion of this note. 01/17/25 08:22 01/17/25 08:22 Labs: Lab Results 01/17/25 01/17/25 Range/Units 08:22 08:28 WBC 6.9 (4.8-10.8) X10*3/uL RBC 4.67 (4.60-5.80) X10*6/uL Hgb 14.7 (14.0-18.0) g/dl Hct 43.6 (42.0-52.0) % MCV 93.4 (80.0-98.0) fL MCH 31.5 (27.0-33.0) pg MCHC 33.7 (31.0-36.0) g/dl RDW 14.5 (11.0-16.0) % Plt Count 270 D (160-400) X10*3/uL MPV 9.2 L (9.4-12.4) fL Immature Gran % (Auto) 0.6 H (0.0-0.4) % Neut % (Auto) 71.3 (45-73) % Lymph % (Auto) 21.5 (20-40) % [place] % (Auto) 5.9 (2-11) % Eos % (Auto) 0.4 (0-4) % Baso % (Auto) 0.3 (0-2) % Lymph # (Auto) 1.5 (1.2-4.9) X10*3/uL [place] # (Auto) 0.4 (0.1-1.2) X10*3/uL Eos # (Auto) 0.0 (0.0-0.4) X10*3/uL Baso # (Auto) 0.0 (0.0-0.2) X10*3/uL Abs Immat Gran (auto) 0.04 H (0.00-0.03) X10*3/uL Absolute Neuts (auto) 5.0 (2.0-8.3) x10*3/uL Absolute Nucleated RBC 0.000 (0.0-0.012) X10*3/uL Nucleated RBC % (auto) 0.0 (0.0-0.2) /100WBC VBG pH 7.40 (7.32-7.43) VBG pCO2 68 mmHg VBG pO2 43 mmHg VBG HCO3 42 H (22-26) mmol/L VBG O2 Saturation 65.0 % VBG Base Excess 13.9 mmol/L Sodium 144 (135-145) mmol/L Potassium 4.0 (3.3-5.1) mmol/L Chloride 103 (96-108) mmol/L Carbon Dioxide 35 H (22-29) mmol/L Anion Gap 10 L (12-20) BUN 16 (9-16) mg/dL Creatinine 0.88 (0.5-1.4) mg/dL Estim Creat Clear Calc 97.7 Estimated GFR > 60 Random Glucose 185 H (60-115) mg/dL Calcium 9.1 (8.4-10.2) mg/dL Total Bilirubin 0.4 (0.0-1.0) mg/dL AST 19 (5-37) U/L ALT 11 (0-40) U/L Alkaline Phosphatase 82 (39-117) U/L Troponin I High Sens 83.1 H (<3.5-35.0) ng/L B-Natriuretic Peptide 1837 H (<100) pg/mL Total Protein 6.9 (6.5-8.0) g/dL Albumin 3.2 L (3.5-5.0) g/dL Influenza Type A (PCR) NEGATIVE (Negative) Influenza Type B (PCR) NEGATIVE (Negative) RSV RNA Qual (PCR) NEGATIVE (Negative) SARS-CoV-2 RNA (RT-PCR) NEGATIVE (Negative) Independent Interpretation I performed an independent interpretation of an: EKG and Plain X-Ray Interpretation: My interpretation is in agreement with the radiologist's impression of this imaging study. L EXAMINATION: XR CHEST 1 VIEW HISTORY: sob COMPARISON: Comparison is made with the prior examination dated 12/29/2024. FINDINGS: A single AP portable view of the chest performed at 7:50 AM is submitted. There is mild prominence of the pulmonary vasculature, consistent with congestion. There is no pleural effusion or pneumothorax. The heart remains enlarged. The bones are intact. XR/XR chest 1V IMPRESSION: Cardiomegaly and mild pulmonary vascular congestion. Electronically signed by: Cecilio Dean MD 01/17/2025 08:04 AM EDT Dictated By: Cecilio Dean MD Signed By: Electronically signed by Cecilio Dean MD 01/17/25 0804 I independently interpreted this EKG and am in agreement with the below findings: Vent. Rate: 94 BPM Atrial Rate: 94 BPM P-R Int: 178 ms QRS Dur: 108 ms QT Int: 386 ms P-R-T Axes: 46 -75 36 degrees QTcB Int: 482 ms Sinus rhythm with Premature supraventricular complexes and with occasional Premature ventricular complexes Incomplete right bundle branch block Left anterior fascicular block Minimal voltage criteria for LVH, may be normal variant (Donny product) Cannot rule out Inferior infarct (cited on or before 29-Dec-2024) Anteroseptal infarct (cited on or before 06-Oct-2024) When compared with ECG of 29-Dec-2024 06:51, Premature ventricular complexes are now Present Nonspecific T wave abnormality has replaced inverted T waves in Lateral leads DD/ [id number] Radiology Impression Discussion of test interpretation with radiology: I have reviewed the radiologist's reading. Critical Care Time Critical Care Time Critical Care Time: Yes Total Critical Care Time: 42 Attestation: I spent 42 minutes of Critical Care Time with this patient. This does not include time spent on separately reported billable procedures. Discharge Plan Discharge Clinical Impression: Acute exacerbation of congestive heart failure, Hypoxia Patient Disposition: Admitted As Inpatient
[2025-01-17 09:06] LABS: Resp Syncy Virus RNA Qual PCR NEGATIVE (Negative); SARS COV2 PCR INHOUSE NEGATIVE (Negative)
[2025-01-17 09:43] LABS: B Type Natriuretic Peptide 1837 pg/mL (<100)
[2025-01-17] MEDS: Furosemide 20 MG/2 ML VIAL IVPUSH (10:31)
--- NOTE | 2025-01-17 11:45 | PHA.MEDREC ---
Addendum entered by Yaritza Yeung RPh 01/17/25 13:42: Per Ambreen, pt said he is not taking aspirin 81 mg anymore MED REC REVIEWED BY [facility] Original Note: Pharmacy Consult ? Medication Reconciliation Pharmacy has completed the medication reconciliation. Spoke with pt and he was in a bit of pain and discomfort but was able to confirmed his medications; pt confirmed he was here last month and states he is still taking those medications (pt and I verbally confirmed the medications from the DC.) Pt confirmed his Vitamin D2 tablet once a week on Tuesdays and confirmed he took it this past Tuesday 01/16.
--- NOTE | 2025-01-17 11:50 | PM.IMHP ---
History of Present Illness Date of Service: 01/17/25 Attending physician on admission: Bijan Matute Chief Complaint: Shortness on breath Jerry Sumner is a 64 years old man with past medical history significant for alcoholic cardiomyopathy (TTE August 2024 EF 15-20%) with moderate diastolic dysfunction, ongoing alcohol consumption, asthma-COPD, essential hypertension and type 2 diabetes mellitus on metformin presents to the emergency department complaining of worsening shortness on breath that started this morning associated with generalized weakness. He denied cough, wheezing, palpitations or chest pain. He did reported feeling nauseous but denied events of vomiting. He also commented that he has some diarrhea. He has been able to to eat or drink well. He does continue to drink alcohol (he said sometimes couple of beers), he also smokes. He denied illicit drug use. His urine drug screen in the past has been positive for cocaine. In the ED, he was found to have mild tachycardia, tachypnea and hypoxia of 86% on room air. His blood pressure is stable. There is no fever. Last blood pressure is 133/101. There is no leukocytosis. Hemoglobin is 14.7 and platelets 270. Venous blood gas showed no acute respiratory acidosis. There are no significant electrolyte imbalances. BUN is 16 and creatinine 0.88. Glucose is 187. Troponin is elevated but trending down, 83.1-> 7.4. BNP is 1837. Viral testing for COVID-19, influenza RSV is negative. CXR showed cardiomegaly with mild pulmonary congestion. ECG showed normal sinus with PVCs. ED tx: Furosemide 20 mg IV, Solu-Medrol 60 mg IV, Zofran mg IV Review of Systems Review of Systems: All 12 systems were reviewed and normal except as noted in HPI. [facility] Medical History Pulmonary HTN Heart failure with reduced ejection fraction Alcohol abuse Cocaine abuse Noncompliance Asthma Smoker New onset type 2 diabetes mellitus Tobacco abuse Chronic HFrEF (heart failure with reduced ejection fraction) Streptococcus infection, group G Hypertension RVH (right ventricular hypertrophy) Tobacco abuse Elevated troponin Bacteremia Asthma Family History Mother Breast cancer Surgical History S/P cardiac catheterization Hx of appendectomy Social History Household Members: None Household Members Other:: [facility] Housing: Apartment Do you presently have visiting nurse or other home services: No Unable to assess alcohol history related to: Unknown Alcohol intake: current Alcohol intake frequency: 0-2 drinks per day Alcohol type: beer and hard liquor Patient Tobacco Use Status: Current everyday Tobacco user Tobacco use type: Cigarette Cigarette Packs Per Day: 0.5 Cigarettes Per Day: 2 Years Smoked: 25 Smoked in Last 30 Days: No e-Cigarette/Vaping Use: Never Used Second Hand Smoke Exposure: No Use of substances other than those prescribed or required for medical reasons: Unknown Substance Use Type: Marijuana Advance Directives: Yes Advance Directives on File: Yes Advance Directives Date on File: 02/27/21 service: No Current occupational status: employed Meds Allergies Allergy/AdvReac Type Severity Reaction Status Date / Time penicillin V Allergy Severe Swollen Verified 01/17/25 06:47 face Penicillins (PENICILLINS) Allergy Severe ANGIOEDEMA Verified 01/17/25 06:47 shellfish derived (SHELLFISH Allergy Severe ANAPHYLAXIS Verified 01/17/25 06:47 DERIVED) Active Medications: Current Medications Acetaminophen (Acetaminophen 325 Mg Tablet) 975 mg PO Q6H PRN PRN Reason: Pain, Mild 1-3,fever,headache Albuterol Sulfate (Albuterol Sulfate (0.083%) 2.5 Mg/3 Ml Vial.Neb) 2.5 mg INHALE Q3H PRN PRN Reason: Wheezing Atorvastatin Calcium (Atorvastatin Calcium 40 Mg Tablet) 40 mg PO DAILY ELANA Calcium Carbonate (Calcium Carbonate 750 Mg Tab.Chew) 750 mg PO Q4H PRN PRN Reason: Heartburn Enoxaparin Sodium (Enoxaparin Sodium 40 Mg/0.4 Ml Syringe) 40 mg SUBCUT Q24H ELANA Ergocalciferol (Ergocalciferol (Vitamin D2) 1,250 Mcg Capsule) 1,250 mcg PO WE ELANA Magnesium Hydroxide (Milk Of Magnesia 30 Ml Oral.Susp) 30 ml PO DAILY PRN PRN Reason: Constipation Melatonin (Melatonin 3 Mg Tablet) 6 mg PO BEDTIME PRN PRN Reason: Insomnia Metoprolol Succinate (Metoprolol Succinate Er 50 Mg Tab.Er.24h) 50 mg PO DAILY ELANA; Protocol Sodium Chloride (0.9 % Sodium Chloride Flush 3 Ml Syringe) 3 ml IVFLUSH QSHIFT ELANA Spironolactone (Spironolactone 25 Mg Tablet) 25 mg PO DAILY ELANA; Protocol Home Medications ?Medication ?Instructions ?Recorded ?Confirmed ?Last Taken ?Type metformin 500 mg tablet 500 mg PO BID 10/22/21 01/17/25 01/16/25 History atorvastatin 40 mg tablet 40 mg PO DAILY 04/07/24 01/17/25 01/16/25 History albuterol sulfate 90 mcg/actuation 1 inh inhalation Q4H PRN shortness 10/06/24 01/17/25 10/05/24 History breath activated powder of breath or wheezing inhaler,sensor furosemide 40 mg tablet 40 mg PO BID 10/06/24 01/17/25 01/16/25 History ergocalciferol (vitamin D2) 1,250 1,250 mcg PO WE 12/29/24 01/17/25 01/10/25 History mcg (50,000 unit) capsule Physical Exam Vital Signs and Narrative: Vital Signs: Last Vital Signs Temp 98.2 F 01/17/25 11:25 Pulse 105 H 01/17/25 11:25 Resp 20 01/17/25 11:25 BP 133/101 H 01/17/25 11:25 Pulse Ox 94 01/17/25 11:25 O2 Del Method Nasal Cannula 01/17/25 11:25 O2 Flow Rate 1 01/17/25 11:25 BMI result Body Mass Index 27.9 Constitutional - Awake and Alert, No apparent distress. Cooperative. Afebrile. HEENT - PER, EOMI Heart - tachycardic Lungs - Normal lung expansion, Normal respiratory effort, No respiratory distress. Tachypnea. Decreased breath sound at bases. No wheezing. No rhonchi. Abdomen - NT / ND; +BS; No rebound or guarding Extremities - No calf tenderness bilaterally, no swelling Musculoskeletal - Normal inspection, normal ROM Skin - Warm/Dry Neurological - Alert & oriented x3. Moving all extremities spontaneously. Normal gait. Normal speech. Psychological - Depressed affect Results Labs 01/17/25 08:22 01/17/25 08:22 Labs: Laboratory Results - last 24 hr 01/17/25 01/17/25 08:22 08:28 MCV 93.4 MCH 31.5 MCHC 33.7 RDW 14.5 Plt Count 270 D MPV 9.2 L Immature Gran % (Auto) 0.6 H Neut % (Auto) 71.3 Lymph % (Auto) 21.5 [place] % (Auto) 5.9 Eos % (Auto) 0.4 Baso % (Auto) 0.3 Lymph # (Auto) 1.5 [place] # (Auto) 0.4 Eos # (Auto) 0.0 Baso # (Auto) 0.0 Abs Immat Gran (auto) 0.04 H Absolute Neuts (auto) 5.0 Absolute Nucleated RBC 0.000 Nucleated RBC % (auto) 0.0 VBG pH 7.40 VBG pCO2 68 VBG pO2 43 VBG HCO3 42 H VBG O2 Saturation 65.0 VBG Base Excess 13.9 Anion Gap 10 L Estim Creat Clear Calc 97.7 Estimated GFR > 60 Random Glucose 185 H Calcium 9.1 Total Bilirubin 0.4 AST 19 ALT 11 Alkaline Phosphatase 82 B-Natriuretic Peptide 1837 H Total Protein 6.9 Albumin 3.2 L Influenza Type A (PCR) NEGATIVE Influenza Type B (PCR) NEGATIVE RSV RNA Qual (PCR) NEGATIVE SARS-CoV-2 RNA (RT-PCR) NEGATIVE Imaging Radiologist's Impressions: Impressions Chest X-Ray 01/17/25 06:50 IMPRESSION: Cardiomegaly and mild pulmonary vascular congestion. Electronically signed by: Cecilio Dean MD 01/17/2025 08:04 AM EDT Assessment and Plan (1) Acute on chronic combined systolic (congestive) and diastolic (congestive) heart failure: Status: Acute (2) Acute hypoxic respiratory failure: Status: Resolved Plan Jerry Sumner is a 64 y/o man with PHNx significant for alcoholic cardiomyopathy (TTE August 2024 EF 15-20%) with moderate diastolic dysfunction presents with: Acute hypoxic respiratory failure secondary to acute on chronic systolic and diastolic congestive heart failure + underlying COPD (no exacerbation); chronic compensated respiratory acidosis. Telemetry. Pulse oximetry. Supplemental O2 to keep O2 sats > 90%. Continue IV diuresis with Lasix 40 mg IV b.i.d.. Continue metoprolol and spironolactone. Albuterol nebs as needed for wheezing. Tobacco cessation education. Alcohol use disorder. Patient was advised to abstain from alcohol consumption. CIWA. Thiamine, folic acid and multivitamins. Check a urine drug screen. Essential hypertension. Continue metoprolol and spironolactone. Hyperlipidemia. Continue statin. Type 2 diabetes mellitus. Hold metformin. BG checks before meals at bedtime. Insulin sliding scale. Diabetic diet. Code status: Full DVT prophylaxis: Lovenox Patient will need hospitalization for at least 2 midnights for acute hypoxic respiratory failure secondary to acute exacerbation of CHF treatment with IV diuresis supplemental oxygen as needed. Quality Stroke Does the patient have a stroke diagnosis?: No VTE Prior VTE?: No VTE Risk Level:: Medical - moderate - high VTE Device Contraindication: Treatment Not Indicated VTE Drug Contraindication: N/A - Med Ordered
[2025-01-17] MEDS: Metoprolol Succinate ER 50 MG TAB.ER.24H PO (12:23)
[2025-01-17 13:22] LABS: Troponin-I High Sensitivity 71.4 ng/L (<3.5-35.0)
[2025-01-17] MEDS: 0.9 % Sodium Chloride Flush 3 ML SYRINGE IVFLUSH (15:21)
[2025-01-17 17:04] LABS: Glucose, Whole Blood 289 mg/dL (60-115)
[2025-01-17] MEDS: Furosemide 40 MG/4 ML VIAL IVPUSH (17:29)
--- NOTE | 2025-01-17 18:17 | PC.NURSE ---
Pt coming in through triage c/o shortness of breath with congested cough. he has a hx of copd and chf. desaturated to 82% in the ED on RA with exertion. since then he has been on 2L O2 NC (he often removes it himself) and is looking better. workup showed bnp of 1837, 20mg lasix IVP given x2. solumedrol given as well. trop initially 83, rpt 71. cxr shows vascular congestion. viral panel negative. Jerry is alert, calm, ambulatory. he has very poor health awareness, often removes his O2 and telemetry wires and doesn't seem to understand the importance. 20g placed in R forearm. meds whole with water. diabetic coverage given as ordered.
--- NOTE | 2025-01-17 20:01 | PC.NURSE ---
This commercial lines underwriter assumed care of this Pt at 1900.
[2025-01-17 20:55] LABS: Glucose, Whole Blood 257 mg/dL (60-115)
--- NOTE | 2025-01-17 23:05 | PC.NURSE ---
Pt A&Ox3, denies any pain, standing on edge of bed using urinal. Bed changed to hospital bed.
[2025-01-18] VITALS (9 sets, daily range): BP systolic 89–114; BP diastolic 65–83; PULSE 72–88; RESP 16–26; TEMP 36–36.7; O2SAT 91–100
[2025-01-18] MEDS: 0.9 % Sodium Chloride Flush 3 ML SYRINGE IVFLUSH ×2 (00:26→21:08)
--- NOTE | 2025-01-18 03:05 | PC.NURSE ---
Pt Spo2 86% on RA, Pt needing multiple reminder to keep nasal canula on throughout the night.
[2025-01-18 04:35] LABS: MANUAL DIFF FLAG NO
[2025-01-18 04:36] LABS: Hematocrit 48.4 % (42.0-52.0); Hemoglobin 15.5 g/dl (14.0-18.0); Imm Gran Abs Auto 0.06 X10*3/uL (0.00-0.03); Imm Gran Pct Auto 0.6 % (0.0-0.4); Lymphocytes Absolute Auto 1.3 X10*3/uL (1.2-4.9); Mean Corpuscular HGB Conc 32.0 g/dl (31.0-36.0); Mean Corpuscular Hemoglobin 31.1 pg (27.0-33.0); Mean Corpuscular Volume 97.2 fL (80.0-98.0); NRBC Abs Auto 0.000 X10*3/uL (0.0-0.012); NRBC Pct Auto 0.0 /100WBC (0.0-0.2); Platelet Count 285 X10*3/uL (160-400); Red Blood Count 4.98 X10*6/uL (4.60-5.80); White Blood Count 10.6 X10*3/uL (4.8-10.8)
[2025-01-18 04:58] LABS: Anion Gap 15 (12-20); Blood Urea Nitrogen 30 mg/dL (9-16); Calcium 9.6 mg/dL (8.4-10.2); Carbon Dioxide 31 mmol/L (22-29); Chloride 101 mmol/L (96-108); Creatinine Clr Calc Pharmacy 63.2; Estimated Glomerular Filt Rate 53; Magnesium 1.9 mg/dL (1.6-2.6); Potassium 5.7 mmol/L (3.3-5.1); Sodium 141 mmol/L (135-145)
[2025-01-18] MEDS: Albuterol Sulfate (0.083%) 2.5 MG/3 ML VIAL.NEB INHALE ×2 (05:21→08:42)
[2025-01-18 06:13] LABS: Appearance Urine Clear; Glucose Urine UA Negative (Negative); PH 5.5 (5.0-9.0); Specific Gravity - Urine 1.020 (1.005-1.025); UMIC TRIGGER UACC YES
[2025-01-18 06:26] LABS: Cannabinoid Screen Urine Not Detected (Not Detect)
[2025-01-18 07:28] LABS: Glucose, Whole Blood 142 mg/dL (60-115)
--- NOTE | 2025-01-18 07:30 | PC.NURSE ---
assumed care of patient at 0700, patient is awake and alert, resp even and unlabored, currently on 3lNC. patient sat up and ate breakfast, no insulin coverage needed at this time.
[2025-01-18] MEDS: Metoprolol Succinate ER 50 MG TAB.ER.24H PO (08:30)
[2025-01-18] MEDS: Furosemide 40 MG/4 ML VIAL IVPUSH ×2 (08:30→17:52)
--- NOTE | 2025-01-18 08:42 | MHC.CM.PN ---
Patient is listed as, self-pay; CM sent an email referral to [facility] this morning. Patient lives in an apartment with his Daughter and his PCP is Dr. Veronique Gastelum. Patient will arrange his own transportation at time of dc. Daughter/Ivonne is the HCP. Home/self care is the goal and CM has initiated and will follow for dc planning.
--- NOTE | 2025-01-18 10:16 | PC.NURSE ---
Addendum entered by Wendy Patel RN 01/18/25 10:21: inpatient attending made aware via tiger text. patient is back on 3lNC, patient is awake and alert at this time, remains at baseline mentation. Original Note: patient took oxygen off, noted to be satting 72% on room air. patient placed back on oxygen, oxygen turned up to 6lNC, patient recovered to 95%, patient o2 turned back down to 3l NC, sat 92%. patient alarm went off patient found to be satting 80% on 3l< not recovering, patient placed on non rebreather at this time.
[2025-01-18 12:00] LABS: Glucose, Whole Blood 158 mg/dL (60-115)
[2025-01-18] MEDS: Furosemide 20 MG/2 ML VIAL 40 MG IVPUSH (13:12)
--- NOTE | 2025-01-18 14:00 | PC.NURSE ---
patient notified this RN that h wants to leave AMA, states his house is unlocked and wants to leave, patient educated that he should stay due to his current medical status. inpatient attending made aware and came to bedside to speak with patient. this RN was present during discussion, patient expressed that he was worried about his home being unlocked and losing his job, patient was able to contact his boss but has not been able to secure anyone to close up his ouse for him. patient expressed concern that he wants to leave tomorrow, patient informed that no promises can be made at this time. patient also expressed concern that he does not like that he is on a diabetic diet while in hospital, states hes not eating right while being here. after discussion with patient, he is agreeable to stay
--- NOTE | 2025-01-18 17:28 | P.PNIM_ITS ---
Subjective Subjective Date of Service: 01/18/25 Interval History: No overnight eents or issues. THe patient expresses frustration with being in hospital and wishes to be discharged. Discussed the inappropriateness of his current wish for discharge given acute hypoxic respiratory failure requiring transition to [place]. THe patient expresses understanding. Still has some wheezing on examination without dyspnoea, resratory distress or somnolence. Review of Systems Review of Systems: Yes all other systems are reviewed and are negative Physical Exam 2 Exam: Exam: General: A&O x3, oriented to time place person and siutaion, comfortable, no pain Cardiac: S1, S2 auscultated with no S3/4, hno MRG. Well perfused. Elevated JVP Respiratory: Bibasilar crackles noted with wheezing at the upper lung zones, otherwise, normal breath sounds Normal rate. No distress. GI/ : No abdominal pain on palpation, no masses or distentions. MSK: Normal ambulation without pain at bony prominences or musculature Neurological: Normal neurological examination on overview, without obvious CN II-XII abnormalities. Vital Signs: Vital Signs: Last Vital Signs Temp 98.0 F 01/18/25 17:23 Pulse 78 01/18/25 17:23 Resp 16 01/18/25 17:23 BP 113/68 01/18/25 17:23 Pulse Ox 99 01/18/25 17:23 O2 Del Method Nasal Cannula 01/18/25 17:23 O2 Flow Rate 3 01/18/25 17:23 BMI result Body Mass Index 27.9 Objective Data Active Medications Acetaminophen (Acetaminophen 325 Mg Tablet) 975 mg PO Q6H PRN PRN Reason: Pain, Mild 1-3,fever,headache Albuterol Sulfate (Albuterol Sulfate (0.083%) 2.5 Mg/3 Ml Vial.Neb) 2.5 mg INHALE Q3H PRN PRN Reason: Wheezing Last Admin: 01/18/25 08:42 Dose: 2.5 mg Documented By: NAVEED Atorvastatin Calcium (Atorvastatin Calcium 40 Mg Tablet) 40 mg PO DAILY ELANA Last Admin: 01/18/25 08:30 Dose: 40 mg Documented By: LENKA Calcium Carbonate (Calcium Carbonate 750 Mg Tab.Chew) 750 mg PO Q4H PRN PRN Reason: Heartburn Dextrose (Dextrose 50 % 25 Gm/50 Ml Syringe) 25 gm IVPUSH Q15M PRN; Protocol PRN Reason: per Hypoglycemia Standing Ord. Enoxaparin Sodium (Enoxaparin Sodium 40 Mg/0.4 Ml Syringe) 40 mg SUBCUT Q24H [facility] Last Admin: 01/18/25 08:31 Dose: 40 mg Documented By: LENKA Ergocalciferol (Ergocalciferol (Vitamin D2) 1,250 Mcg Capsule) 1,250 mcg PO WE [facility] Last Admin: 01/17/25 12:24 Dose: 1,250 mcg Documented By: BREN Folic Acid (Folic Acid 1 Mg Tablet) 1 mg PO DAILY [facility] Last Admin: 01/18/25 08:30 Dose: 1 mg Documented By: LENKA Furosemide (Furosemide 40 Mg/4 Ml Vial) 40 mg IVPUSH BID@0900,1800 [facility]; Protocol Last Admin: 01/18/25 08:30 Dose: 40 mg Documented By: LENKA Glucose (Glucose Gel 15 Gm Gel..Gram.) 15 gm PO Q15M PRN; Protocol PRN Reason: per Hypoglycemia Standing Ord. Insulin Human Lispro (Insulin Lispro 100 Unit/Ml 3 Ml Vial) 0 unit SUBCUT QIDACHS [facility]; Protocol Last Admin: 01/18/25 13:11 Dose: 2 unit Documented By: LENKA Magnesium Hydroxide (Milk Of Magnesia 30 Ml Oral.Susp) 30 ml PO DAILY PRN PRN Reason: Constipation Melatonin (Melatonin 3 Mg Tablet) 6 mg PO BEDTIME PRN PRN Reason: Insomnia Metoprolol Succinate (Metoprolol Succinate Er 50 Mg Tab.Er.24h) 50 mg PO DAILY [facility]; Protocol Last Admin: 01/18/25 08:30 Dose: 50 mg Documented By: LENKA Multivitamins/Vitamin C (Multivitamin Tablet) 1 tab PO DAILY [facility] Last Admin: 01/18/25 08:31 Dose: 1 tab Documented By: LENKA Ondansetron HCl (Ondansetron Hcl 4 Mg/2 Ml Vial) 4 mg IVPUSH Q6H PRN PRN Reason: Nausea and Vomiting Sodium Chloride (0.9 % Sodium Chloride Flush 3 Ml Syringe) 3 ml IVFLUSH QSHIFT [facility] Last Admin: 01/18/25 16:35 Dose: Not Given Documented By: LENKA Non-Admin Reason: See Note Spironolactone (Spironolactone 25 Mg Tablet) 25 mg PO DAILY [facility]; Protocol Last Admin: 01/18/25 08:30 Dose: 25 mg Documented By: LENKA Thiamine HCl (Thiamine Hcl 100 Mg Tablet) 100 mg PO DAILY [facility] Last Admin: 01/18/25 08:30 Dose: 100 mg Documented By: LENKA Labs 01/18/25 04:18 01/18/25 04:18 Labs: Laboratory Results - last 24 hr 01/17/25 01/18/25 01/18/25 20:50 04:18 06:05 MCV 97.2 MCH 31.1 MCHC 32.0 RDW 14.6 Plt Count 285 MPV 9.6 Immature Gran % (Auto) 0.6 H Neut % (Auto) 83.6 H Lymph % (Auto) 11.8 L [place] % (Auto) 3.8 Eos % (Auto) 0.0 Baso % (Auto) 0.2 Lymph # (Auto) 1.3 [place] # (Auto) 0.4 Eos # (Auto) 0.0 Baso # (Auto) 0.0 Abs Immat Gran (auto) 0.06 H Absolute Neuts (auto) 8.8 H Absolute Nucleated RBC 0.000 Nucleated RBC % (auto) 0.0 Anion Gap 15 Estim Creat Clear Calc 63.2 Estimated GFR 53 POC Glucose 257 H Random Glucose 164 H Calcium 9.6 Magnesium 1.9 Urine Color Yellow Urine Appearance Clear Urine pH 5.5 Ur Specific [place] 1.020 Urine Protein 100 (2+) H Urine Glucose (UA) Negative Urine Ketones Negative Urine Blood Negative Urine Nitrite Negative Ur Leukocyte Esterase Negative Urine RBC 0-2 Urine WBC 0-5 Ur Squamous Epith Cells 0-2 Urine Bacteria None Seen Hyaline Casts 3-5 Urine Opiates Screen Not Detected Ur Buprenorphine Scrn Not Detected Ur Oxycodone Screen Not Detected Urine Methadone Screen Not Detected Urine Fentanyl Screen Not Detected Ur Barbiturates Screen Not Detected Ur Phencyclidine Scrn Not Detected Ur Amphetamines Screen Not Detected U Benzodiazepines Scrn Not Detected Urine Cocaine Screen POSITIVE H U Marijuana (THC) Screen Not Detected 01/18/25 01/18/25 07:23 11:56 MCV MCH MCHC RDW Plt Count MPV Immature Gran % (Auto) Neut % (Auto) Lymph % (Auto) [place] % (Auto) Eos % (Auto) Baso % (Auto) Lymph # (Auto) [place] # (Auto) Eos # (Auto) Baso # (Auto) Abs Immat Gran (auto) Absolute Neuts (auto) Absolute Nucleated RBC Nucleated RBC % (auto) Anion Gap Estim Creat Clear Calc Estimated GFR POC Glucose 142 H 158 H Random Glucose Calcium Magnesium Urine Color Urine Appearance Urine pH Ur Specific [place] Urine Protein Urine Glucose (UA) Urine Ketones Urine Blood Urine Nitrite Ur Leukocyte Esterase Urine RBC Urine WBC Ur Squamous Epith Cells Urine Bacteria Hyaline Casts Urine Opiates Screen Ur Buprenorphine Scrn Ur Oxycodone Screen Urine Methadone Screen Urine Fentanyl Screen Ur Barbiturates Screen Ur Phencyclidine Scrn Ur Amphetamines Screen U Benzodiazepines Scrn Urine Cocaine Screen U Marijuana (THC) Screen Assessment and Plan (1) Hypoxia: Status: Resolved (2) Acute on chronic combined systolic (congestive) and diastolic (congestive) heart failure: Status: Acute Assessment and Plan: Acute hypoxic respiratory failure due to acute on chronic HFrEF CXR on arrival showed cardiomegaly and pulmonary vascular congestion BNP 1097 --> 647 Echo 08/24 shows grade 2 diastolic dysfunction with severely decreased LV systolic function with EF 15-20%. Experiencing lightheadedness. ?Overdiuresis. Unfortunately I&O has not been accurately recorded Decrease lasix to 20mg BID Strict I&O Daily weights Consider cardiology consult if needed Continue entresto, jardiance Follow renal function, lytes, trend BNP Continue supplemental O2, wean as tolerated (3) Orthostatic hypotension: Status: Acute Assessment and Plan: Orthostatic lightheadedness ? r/t overdiuresis. however, repeat cxr still shows vascular congestions and remains hypoxic. See above ddimer negative add small dose midodrine. Monitor (4) Hypertension: Status: Acute Assessment and Plan: Hypertension Continue metoprolol, Entresto (5) COPD (chronic obstructive pulmonary disease): Status: Acute Assessment and Plan: history of COPD. Mild wheezing could be secondary to cardiac wheeze Received methlpred in the emergency department. No need for antibiotics at this time or continued steroids given clinical picture consistent with CHF exacerbation currently. Monitor closely (6) Hyperlipidemia: Status: Acute Assessment and Plan: Hyperlipidemia Statin Plan 64-year-old male with a past medical history of HTN, HLD, dm, HFrEF, asthma, alcohol use disorder, tobacco dependence, HX and SVT; presented to the hospital today with a chief complaint of shortness of breath. Total time managing care of this patient today: 45 minutes. Quality Stroke Does the patient have a stroke diagnosis?: No VTE Prior VTE?: No VTE Risk Level:: Medical - moderate - high VTE Device Contraindication: Treatment Not Indicated VTE Drug Contraindication: N/A - Med Ordered (Enoxaparin 40mg OD SQ )
[2025-01-18 17:44] LABS: Glucose, Whole Blood 178 mg/dL (60-115)
[2025-01-18 20:48] LABS: Glucose, Whole Blood 153 mg/dL (60-115)
[2025-01-19 03:27] VITALS: BP 96/61; PULSE 64; RESP 16; TEMP 36; O2SAT 98
[2025-01-19 07:01] LABS: MANUAL DIFF FLAG NO
[2025-01-19 07:10] LABS: Hematocrit 47.5 % (42.0-52.0); Hemoglobin 15.1 g/dl (14.0-18.0); Imm Gran Abs Auto 0.04 X10*3/uL (0.00-0.03); Imm Gran Pct Auto 0.6 % (0.0-0.4); Lymphocytes Absolute Auto 1.7 X10*3/uL (1.2-4.9); Mean Corpuscular HGB Conc 31.8 g/dl (31.0-36.0); Mean Corpuscular Hemoglobin 30.8 pg (27.0-33.0); Mean Corpuscular Volume 96.9 fL (80.0-98.0); NRBC Abs Auto 0.000 X10*3/uL (0.0-0.012); NRBC Pct Auto 0.0 /100WBC (0.0-0.2); Platelet Count 251 X10*3/uL (160-400); Red Blood Count 4.90 X10*6/uL (4.60-5.80); White Blood Count 7.1 X10*3/uL (4.8-10.8)
[2025-01-19 07:20] LABS: Anion Gap 13 (12-20); Blood Urea Nitrogen 46 mg/dL (9-16); Calcium 9.3 mg/dL (8.4-10.2); Carbon Dioxide 35 mmol/L (22-29); Chloride 98 mmol/L (96-108); Creatinine Clr Calc Pharmacy 58.8; Estimated Glomerular Filt Rate 49; Magnesium 1.9 mg/dL (1.6-2.6); Potassium 5.2 mmol/L (3.3-5.1); Sodium 141 mmol/L (135-145)
[2025-01-19 07:39] VITALS: BP 113/86; PULSE 77; RESP 20; TEMP 37; O2SAT 95
[2025-01-19 07:40] LABS: Glucose, Whole Blood 113 mg/dL (60-115)
[2025-01-19 07:41] LABS: B Type Natriuretic Peptide 1912 pg/mL (<100)
[2025-01-19 08:09] VITALS: O2SAT 92
[2025-01-19] MEDS: Metoprolol Succinate ER 50 MG TAB.ER.24H PO (09:35)
[2025-01-19] MEDS: 0.9 % Sodium Chloride Flush 3 ML SYRINGE IVFLUSH (09:38)
[2025-01-19 11:14] VITALS: BP 116/78; PULSE 80; RESP 20; TEMP 36.4; O2SAT 94
[2025-01-19 11:15] LABS: Glucose, Whole Blood 151 mg/dL (60-115)
--- NOTE | 2025-01-19 11:22 | MHC.CM.PN ---
PT TO BE MEDICALLY CLEARED FOR DC HOME SELF CARE PENDING WEAN OFF O2, PT CURRENTLY ON ROOM AIR, PT WILL ARRANGE FOR A RIDE HOME.
--- NOTE | 2025-01-19 12:12 | P.DS_ITS ---
DS: Providers Provider Date of Service: 01/17/25 Date of admission: 01/17/25 10:12 Date of discharge: 01/19/25 Primary care physician: Veronique Gastelum NP Attending physician on discharge: Sabi Ayala DS: Diagnosis Discharge Diagnosis (1) Hypoxia: Status: Resolved (2) Acute on chronic combined systolic (congestive) and diastolic (congestive) heart failure: Status: Acute (3) Orthostatic hypotension: Status: Acute (4) Hypertension: Status: Acute (5) COPD (chronic obstructive pulmonary disease): Status: Acute (6) Hyperlipidemia: Status: Acute (7) Cocaine abuse: Status: Acute DS: Summary Hospital Course Hospital Course: 64-year-old male with a past medical history of HTN, HLD, dm, HFrEF, asthma, alcohol use disorder, tobacco dependence, HX and SVT; presented to the hospital today with a chief complaint of shortness of breath. , admitted with an acute exacerbation of CHFrEF with pulmonary edema likely secondary to cocaine abuse. The patient was effectively diuresed while inpatient with 40mg IV TID furomseide. The patient was noted to be hypoxic on admission, requiring NC 2-3L. Post diureses he was weaned off NC cannula and remained stable on mobilizaion. COPD history noted; O2 sat baseline 94-96%. No decrease past 92% on walking and movement. The patient was advised on cocaine discontinuation and medication & dietary compliance Status at Discharge Cognitive/behavioral status at discharge: Back to baseline by time of discharge Functional status at discharge: independent ambulation Overall status at discharge: patient is back to baseline Time Attestation Total time managing care of this patient today: 45 mintues. Discharge Coordination Time (in mins): 15 Quality: Safe Use of Opioids Does Pt have an Active Cancer Diagnosis on the Problem List?: No Quality: Stroke Does the patient have a stroke diagnosis?: No Physical Exam Exam: Exam: General: A&O x3, oriented to time place person and siutaion, comfortable, no pain Cardiac: S1, S2 auscultated with no S3/4, hno MRG. Well perfused. JVP WNL Respiratory: normal/ CTAB on examination without wheezing, rhochi or rales. No tachypneoa or respiratory distress. no orthopnoea . GI/ : No abdominal pain on palpation, no masses or distentions. MSK: Normal ambulation without pain at bony prominences or musculature Neurological: Normal neurological examination on overview, without obvious CN II-XII abnormalities. Vital Signs: Vital Signs: Last Vital Signs Temp 97.5 F 01/19/25 11:14 Pulse 80 01/19/25 11:14 Resp 20 01/19/25 11:14 BP 116/78 01/19/25 11:14 Pulse Ox 94 01/19/25 11:14 O2 Del Method Room Air 01/19/25 11:14 O2 Flow Rate 3 01/19/25 07:39 BMI result Body Mass Index 27.9 DS: Data Data Completed and Pending Labs on day of discharge: Laboratory Results - last 24 hr 01/18/25 01/18/25 01/19/25 17:40 20:44 06:54 WBC 7.1 RBC 4.90 Hgb 15.1 Hct 47.5 MCV 96.9 MCH 30.8 MCHC 31.8 RDW 14.6 Plt Count 251 MPV 9.6 Immature Gran % (Auto) 0.6 H Neut % (Auto) 68.1 Lymph % (Auto) 24.4 [place] % (Auto) 6.2 Eos % (Auto) 0.3 Baso % (Auto) 0.4 Lymph # (Auto) 1.7 [place] # (Auto) 0.4 Eos # (Auto) 0.0 Baso # (Auto) 0.0 Abs Immat Gran (auto) 0.04 H Absolute Neuts (auto) 4.8 Absolute Nucleated RBC 0.000 Nucleated RBC % (auto) 0.0 Sodium 141 Potassium 5.2 H Chloride 98 Carbon Dioxide 35 H Anion Gap 13 BUN 46 H Creatinine 1.46 H Estim Creat Clear Calc 58.8 Estimated GFR 49 POC Glucose 178 H 153 H Random Glucose 125 H Calcium 9.3 Magnesium 1.9 B-Natriuretic Peptide 1912 H 01/19/25 01/19/25 07:37 11:11 WBC RBC Hgb Hct MCV MCH MCHC RDW Plt Count MPV Immature Gran % (Auto) Neut % (Auto) Lymph % (Auto) [place] % (Auto) Eos % (Auto) Baso % (Auto) Lymph # (Auto) [place] # (Auto) Eos # (Auto) Baso # (Auto) Abs Immat Gran (auto) Absolute Neuts (auto) Absolute Nucleated RBC Nucleated RBC % (auto) Sodium Potassium Chloride Carbon Dioxide Anion Gap BUN Creatinine Estim Creat Clear Calc Estimated GFR POC Glucose 113 151 H Random Glucose Calcium Magnesium B-Natriuretic Peptide Discharge Plan Discharge Anticipated Discharge Date/Time: 01/19/25 12:17 Patient Disposition: Home, Self-Care Discharge Diagnosis: Acute on chronic exacerbation of CHFrEF with acute hypoxic respiratory failure, in the setting of underlying COPD and cocaine abuse. Referrals: Veronique Gastelum, [employer] [Primary Care Provider, Internal Medicine] - 1 Week Discharge Medications: New tiotropium bromide 18 mcg capsule, w/inhalation device 1 cap inhalation RDAILY 30 Days Qty: 1 0RF Continued metoprolol succinate [Toprol XL] 50 mg tablet extended release 24 hr 50 mg PO DAILY Qty: 30 5RF spironolactone 25 mg Tablet 25 mg PO DAILY Qty: 30 0RF Protocol: Hold for SBP< HOLD for SBP < : 90 atorvastatin 40 mg tablet 40 mg PO DAILY Rx Instructions: Take 1 tablet at bedtime daily Dose has been increased to 40mg furosemide 40 mg tablet 40 mg PO BID Protocol: Hold for SBP< HOLD for SBP < : 90 albuterol sulfate 90 mcg/actuation aero powdr breath act w/sensor 1 inh inhalation Q4H PRN (Reason: shortness of breath or wheezing) ergocalciferol (vitamin D2) 1,250 mcg (50,000 unit) capsule 1,250 mcg PO WE metformin 500 mg tablet 500 mg PO BID Discharge Orders: Discharge Order (Routine); Ordered 01/19/25 Ordered By: Sabi Ayala Activity on Discharge: As tolerated Stand Alone Forms: Patient Portal Discharge page Print Language: Bangladeshi Care Plan Goals: - Follow up Cardiology regarding CHF - Consider outpatient spirometry testing for COPD - Compliance with medications - Avoid use of cocaine in outpatient setting - Medication compliance Health Concerns: as above Plan of Treatment: - Follow up Cardiology regarding CHF - Consider outpatient spirometry testing for COPD - Compliance with medications - Avoid use of cocaine in outpatient setting - Medication compliance - Follow up with PCP Assessment: Patient back to clinical baseline after resolution of acute hypoxic respiratory failure in setting of pulmonary edema from CHF exacerbation
== END 2025-01-19 12:42 | disposition home or self-care (01) | DRG 291 ==
LOC: HO.ED 10:10 → HO.EDOVER 10:40 → HO.IMC 01-18 16:06
PROVIDERS: Physician Assistant Medical; Admitting Provider Hospitalist; Emergency Provider Emergency Medicine; PCP Nurse Practitioner Primary Care; Responsible Provider Internal Medicine; Visit Provider Hospitalist
DX: I11.0 Hypertensive heart disease with heart failure (principal); I50.43 Acute on chronic combined systolic (congestive) and diastolic (congestive) heart failure; J96.01 Acute respiratory failure with hypoxia; I42.6 Alcoholic cardiomyopathy; J44.9 Chronic obstructive pulmonary disease, unspecified; F10.10 Alcohol abuse, uncomplicated; I95.1 Orthostatic hypotension; F14.10 Cocaine abuse, uncomplicated; E78.5 Hyperlipidemia, unspecified; E11.9 Type 2 diabetes mellitus without complications; Z20.822 Contact with and (suspected) exposure to COVID-19; Z79.01 Long term (current) use of anticoagulants; Z79.82 Long term (current) use of aspirin; Z79.84 Long term (current) use of oral hypoglycemic drugs; Z79.899 Other long term (current) drug therapy
CPT/HCPCS: 36415; 71045; 80048; 80053; 80307; 81001; 82803; 82947; 83735; 83880; 84484; 85025; 87637; 93005; 94640; 99285; J1650; J1938; J2405; J2919

== ENCOUNTER → 2025-01-17 06:50 | Outpatient (BNV) | payer SELFPAY | PROVIDERS: Visit Provider Radiology Diagnostic Radiology | DX: R06.02 Shortness of breath (principal) | CPT/HCPCS: 71045 ==

== ENCOUNTER → 2025-01-17 07:00 | Outpatient (BNV) | payer SELFPAY | PROVIDERS: Admitting Provider Hospitalist; Emergency Provider Emergency Medicine; Responsible Provider Internal Medicine; Visit Provider Internal Medicine | DX: I49.1 Atrial premature depolarization (principal); I49.3 Ventricular premature depolarization; I45.10 Unspecified right bundle-branch block; I44.4 Left anterior fascicular block | CPT/HCPCS: 93010 ==

== ENCOUNTER → 2025-01-17 10:12 | Outpatient (BNV) | payer SELFPAY | PROVIDERS: Admitting Provider Hospitalist; Emergency Provider Emergency Medicine; Responsible Provider Internal Medicine; Visit Provider Internal Medicine | DX: I50.43 Acute on chronic combined systolic (congestive) and diastolic (congestive) heart failure (principal); J96.01 Acute respiratory failure with hypoxia | CPT/HCPCS: 99223; 99232; 99239 ==

== ENCOUNTER 2025-01-20 06:51 | Inpatient (IN) | payer SELFPAY ==
[2025-01-20] VITALS (8 sets, daily range): BP systolic 115–133; BP diastolic 72–95; PULSE 65–86; RESP 18–22; TEMP 36.4–36.7; O2SAT 89–98; BMI 29.0; BMI 26.6
--- NOTE | ~2025-01-20 | US_ITS ---
CLINICAL HISTORY: abd distention, newly elevated LFTs US abdomen limited Comparison: None provided Findings: The visualized pancreas is normal. The liver is normal in size and echotexture. There is no intrahepatic bile duct dilatation. The common duct is 3 mm in diameter. Gallbladder wall is thickened measuring 9 mm diameter with a small amount of pericholecystic fluid. No cholelithiasis. Positive sonographic Whaley's sign. The right kidney is 11.4 cm in length. No ascites. IMPRESSION: Acute cholecystitis. This document has been electronically signed by: Monster Cortez MD on 01/20/2025 13:29:05
--- NOTE | ~2025-01-20 | XR_ITS ---
CLINICAL HISTORY: dyspnea 2 view chest x-ray Comparison: 01/17/2025 Findings: No consolidation or effusion. Redemonstration of cardiomegaly and pulmonary vascular congestion. No acute fracture. IMPRESSION: Redemonstration of cardiomegaly and pulmonary vascular congestion. This document has been electronically signed by: Celsa Saldivar MD on 01/20/2025 09:31:06
--- NOTE | 2025-01-20 07:33 | PC.NURSE ---
Pt comes to ED today from home for c/o SOB He reports he was discharged yesterday from inpatient status and felt well. This AM he woke up feeling SOB to the point in which he states he fell the floor. He dies any injury (no head strike, no LOC.) Pt is A&Ox3 VSS Pt desats in triage and in exam room to 80's. 4L o2 applied via NC with good result. Pt denies chest pain and cough. He reports nausea, no vomiting. He also c/o urinary retention. Pt resting quietly at this time. Awaiting ED provider.
--- OUTSIDE RECORDS SUMMARY | 2025-01-20 07:42 | XMS_ITS | Clinical Summary ---
Author Organization [employer] Address [address] [facility] [address] [place] [address] Care Team Providers Care Employment Representative Name Role Phone [employer] Primary Care Provider [phone] Aguila Portillo MD Unavailable [phone] Allergies Active Allergy Reactions Criticality Noted Date [...] Devices (Fingertip Pulse Oximeter) miscIndications :COPD exacerbation (CMS/[facility]) Use to check O2, go to ER or call 911 if < 92% and not better w/ albuterol 1 each 08/27/19 24 Active Spiriva Respimat 2.5 MCG/ACT inhalerIndicati ons:Chronic obstructive pulmonary disease, unspecified COPD type (CMS/HCC) INHALE 2 PUFFS EVERY MORNING 4 g 11 03/16/20 24 Active atorvastatin (Lipitor) 40 MG tabletIndicatio ns:Hyperlipidem ia associated with type 2 diabetes mellitus (CMS/HCC) TAKE 1 TABLET BY MOUTH EVERY MORNING 90 tablet 3 06/05/20 24 Active FREESTYLE LITE test stripIndication s:Diabetes mellitus with coincident hypertension (CMS/HCC) ([facility]) TEST BLOOD SUGAR TWICE DAILY 50 strip [...] by mouth 2 times daily. 180 tablet 10/06/19 25 Active spironolactone (Aldactone) 25 MG [...] ronic obstructive pulmonary disease, unspecified COPD type (CMS/HCC) Inhale 2 puffs every 6 (six) hours if needed for wheezing or shortness of breath. 18 g 1 10/06/19 25 Active lidocaine (Lidoderm) 5 % patchIndication s:Acute bilateral low back pain without sciatica Apply 1 patch topically Once per day. Remove & discard patch within 12 hours or as directed by MD. 30 patch 2 10/06/19 25 Active ergocalciferol (Vitamin D2) 1.25 MG (22891 UT) capsule TAKE 1 CAPSULE BY MOUTH ONCE WEEKLY ON Wednesday 12 capsule 1 12/22/19 25 Active metFORMIN (Glucophage) 500 MG tabletIndicatio ns:Hypertension associated with diabetes (CMS/HCC) TAKE 1 TABLET BY MOUTH TWICE DAILY IN THE MORNING AND IN THE EVENING 180 tablet 1 12/28/19 25 Active empagliflozin (Jardiance) 25 MG TAKE 1 TABLET BY MOUTH EVERY MORNING 30 tablet 2 01/18/20 25 Active empagliflozin (Jardiance) 25 MG TAKE 1 TABLET BY MOUTH EVERY MORNING 90 tablet 1 12/15/19 24 025 Discontinued metFORMIN (Glucophage) 500 MG [...] 09/08/2022 Diabetes mellitus with coincident hypertension ( [facility]) 09/08/2022 Vitamin D deficiency 09/08/2022 Hyperlipidemia associated with type 2 diabetes cara maldonado 08/20/2016 Resolved Problems Problem Noted Date Diagnosed Date Resolved Date Cocaine abuse 08/20/2016 03/16/2023 Encounters Date Type Department Care Team Description 01/18/2025 Telephone [facility] [address] [place] [phone] Sera Bello ANP Insurance 01/18/2025 Telephone [facility] [address] [place] [phone] Sera Bello ANP chart prep 01/16/[address] [address] Sera Bello ANP 01/10/[address] [phone] Magdalena Wilkins, [place] 01/01/[address] [address] Sera Bello ANP Appointment Request 01/01/2025 Patient Outreach [address] [address] Sera Bello ANP Transition Of Care (Tcm) (HDF- Unscheduled LVM ) 12/29/2024 Results Follow-Up [address] [address] Ewelina Villanueva NP High Sensitivity Troponin I, Glucose, Whole Blood, Drug Monitoring, Panel 1, Screen, Urine 12/29/2024 Orders Only GENERIC EXTERNAL DATA DEPARTMENT Provider, Generic External Data 12/27/2024 Refill [facility] [address] [place], [place] [phone] Sera Bello ANP Hypertension associated with diabetes ([facility]) 12/21/2024 Refill [facility] [address] [place] [phone] Sera Bello ANP 12/04/[address] [address] Sera Bello ANP No Show 12/04/2024 Telephone [facility] [place] [address] Sera Bello ANP Referral 12/03/2024 Orders Only [facility] [place] [address] Sera Bello ANP Thyromegaly (Primary Dx) 12/01/2024 Telephone [facility] [place] [address] Sera Bello ANP Appointment Request from Last 3 Months Immunizations Immunization Administration [...] 23 SDOH Screening 11/06/2023 11/05/2022 COVID-19 Vaccine ( - season) 2024 06/12/2021 Lipid Panel 03/08/2024 [...] Procedure Name Priority Date/Time Associated Diagnosis Comments DRUG MONITOR, PANEL 1, SCREEN, URINE Routine 12/29/2024 12:05 PM EDT GLUCOSE, WHOLE BLOOD Routine 12/29/2024 11:58 AM EDT HIGH SENSITIVITY TROPONIN I Routine 12/29/2024 10:40 AM EDT XR CHEST 1 VIEW Routine 12/29/2024 6:16 AM EDT POCT GLYCATED HEMOGLOBIN, TOTAL Routine [...] Relevant to Health Maintenance Results * (ABNORMAL) Drug Monitoring, Panel 1, Screen, Urine (12/29/2024 12:05 PM EDT) Opiate Screen Urine Not Detected Not Detect [facility] Comment:Opiate cut-off is 30 0 ng/mL.Positive results are unconfirmed and should not be used fornon-medical purposes. Barbiturates, Urine Not Detected Not Detect [facility] Comment:Barbiturate cut-off is 200 ng/mL.Positive results are unconfirmed and should not be used fornon-medical purposes. Phencyclidine Screen Urine Not Detected Not Detect [facility] Comment:Phencyclidine cut-of f is 25 ng/mL.Positive results are unconfirmed and should not be used fornon-medical purposes. Amphetamine Screen Urine Not Detected Not Detect [facility] Comment:Amphetamine cut-off is 1000 ng/mL.Positive results are unconfirmed and should not be used fornon-medical purposes. Benzodiazepines Screen Urine Not Detected Not Detect [facility] Comment:Benzodiazepine cut-o ff is 200 ng/mL.Positive results are unconfirmed and should not be used fornon-medical purposes. Cocaine Screen Urine POSITIVE(A) Not Detect [facility] Comment:Cocaine cut-off is 3 00 ng/mL.Positive results are unconfirmed and should not be used fornon-medical purposes. Cannabinoid Screen Urine Not Detected Not Detect [facility] Comment:Cannabinoid cut-off is 50 ng/mL.Positive results are unconfirmed and should not be used fornon-medical purposes. Methadone Screen, Urine Not Detected Not Detect ng/mL [facility] Comment:Methadone cut-off is 300 ng/mL.Positive results are unconfirmed and should not be used fornon-medical purposes. FENTANYL URINE Not Detected Not Detect [facility] Comment:Fentanyl cut-off is 1 ng/mL.Positive results are unconfirmed and should not be used fornon-medical purposes. Oxycodone Urine Screen Not Detected Not Detect ng/mL [facility] Comment:Oxycodone cut-off is 100 ng/mL.Positive results are unconfirmed and should not be used fornon-medical purposes. Buprenorphine Screen Not Detected Not Detect ng/mL [facility] Comment:Buprenorphine cut-of f is 5 ng/mL.Positive results are unconfirmed and should not be used fornon-medical purposes. 12/29/2024 12:0 5 PM EDT 12/29/2024 12:24 PM EDT Generic External Data Provider LAB URINE ORDERAB LES Final Result Performing Organization Address [facility]/ZIP Co de Phone Number [facility] [address] [place] [phone] * (ABNORMAL) Glucose, Whole Blood (12/29/2024 11:58 AM EDT) Glucose, Whole Blood 129(H) 60 - 115 mg/dL [facility] Comment:METER #: [id number] 12/29/2024 11:5 8 AM EDT 12/29/2024 12:18 PM EDT Generic External Data Provider LAB BLOOD ORDERAB LES Final Result Performing Organization Address [facility] Co de Phone Number [facility] [address] [place] [phone] * (ABNORMAL) High Sensitivity Troponin I (12/29/2024 10:40 AM EDT) TROPONIN I HIGH SENSITIVITY 100.6(HH) <3.5 - 35.0 ng/L [facility] Comment:Critical value for T ROPONIN: Results called to and readback by: RAFAEL Person calling: BAKARI Date: 12-29-24 Time:1109The Sosa high sensitivity Troponin-I results should beused in conjunction with other diagnostic information suchas ECG, clinical observations and information, and patientsymptoms to aid in the diagnosis of LA. 12/29/2024 10:4 0 AM EDT 12/29/2024 10:46 AM EDT us Generic External Data Provider LAB BLOOD ORDERAB LES Final Result [facility] [address] [place] [phone] * XR Chest 1 View (12/29/2024 6:16 AM EDT) Anatomical Region Laterality Modality Chest Radiographic Thu ging 12/29/2024 6:16 AM EDT Narrative 12/29/2024 8:03 AM EDT [address] [address] XRay Report Signed Patient: Jerry Sumner MR#: [id number] 66 : 1960 Acct:[id number] Age/Sex: 64 / M ADM Date: 12/29/24 Loc: .ED Attending Dr: Ordering Physician: Garret Prieto DO Date of Service: 12/29/24 Procedure(s): XR chest 1V Accession Number(s): [id number] cc: SERA BELLO HANDICAPPED TEACHER; Garret Prieto DO EXAMINATION: XR CHEST CLINICAL INFORMATION: shortness of breath COMPARISON: 10/07/2024 TECHNIQUE: AP view of the chest was obtained. FINDINGS: There is moderate cardiomegaly. Mediastinal and hilar contours appear normal. There is moderate pulmonary vascular congestion present, similar to the prior exam. Lungs otherwise grossly clear. No pneumothorax or effusion. No focal osseous or soft tissue abnormality. XR/XR chest 1V IMPRESSION: Cardiomegaly and pulmonary vascular congestion, unchanged from the prior exam. Electronically signed by: Negrito Gonzalez MD 12/29/2024 08:00 AM EDT Dictated By: Negrito Gonzalez MD Signed By: <Electronically signed by Negrito Gonzalez MD in OV> 12/29/24 0800 DD/ 0616 TD/TT: 12/29/24 0726 Blind Lacer: Procedure Note Donotuseinterpreter, Image - 12/29/[address] [address] XRay Report Signed Patient: Jerry Sumner DMR#: [id number] 66 : 1960cct:[id number] Age/Sex: 64 / MADM Date: 12/29/24 Loc: HO.ED Attending Dr: Ordering Physician: Garret Prieto DO Date of Service: 12/29/24 Procedure(s): XR chest 1V Accession Number(s): [id number] cc: SERA BELLO HANDICAPPED TEACHER; Garret Prieto DO EXAMINATION: XR CHEST CLINICAL INFORMATION: shortness of breath COMPARISON: 10/07/2024 TECHNIQUE: AP view of the chest was obtained. FINDINGS: There is moderate cardiomegaly. Mediastinal and hilar contours appear normal. There is moderate pulmonary vascular congestion present, similar to the prior exam. Lungs otherwise grossly clear. No pneumothorax or effusion. No focal osseous or soft tissue abnormality. XR/XR chest 1V IMPRESSION: Cardiomegaly and pulmonary vascular congestion, unchanged from the prior exam. Electronically signed by: Negrito Gonzalez MD 12/29/2024 08:00 AM EDT RP Dictated By: Negrito Gonzalez MD Signed By: <Electronically signed by Negrito Gonzalez MD in OV> 12/29/24 0800 DD/ 0616 TD/TT: 12/29/24 0726 Blind Lacer: [facility] External Provider IMG XR PROCEDURES Final Result * (ABNORMAL) POCT HGB A1C (10/05/2024 3:30 PM EDT) Hemoglobin A1C 7.2(A) 4.0 - 6.0 % QC Media Lot # [id number] Lot# Expiration Date Blood 10/05/2024 3:30 PM EDT Sera RICH POINT OF CARE TEST ENTER/EDIT OR DERABLES Final Result * (ABNORMAL) Lipid Panel, Standard (03/08/2023 1:17 PM EDT) Triglycerides 229(H) <150 mg/dL [facility] Comment:Desirable Triglyceri de: less than 150 mg/dLBorderline High Triglyceride 150-199 mg/dLHigh Triglyceride: 200-499 mg/dLVery High Triglyceride: greater than or equal to 5OO mg/dL Cholesterol 281(H) <200 mg/dL [facility] Comment:Desirable Cholestero l: less than 200 mg/dLBorderline High Cholesterol: 200-239 mg/dLHigh Cholesterol: greater than 239 mg/dL LDL Cholesterol Calculated 182(H) <100 mg/dL [facility] Comment:Desirable LDL: less than 100 mg/dLNear Optimal/Above Optimal LDL: 110- 129 mg/dLBorderline High LDL: 130-159 mg/dLHigh LDL: 160-189 mg/dLVery High LDL: greater than or equal to 190 mg/dL HDL Cholesterol 54 >40 mg/dL [facility] Comment:Desirable HDL: great er than 40 mg/dL Note: This HDL assay may give artificially low results in patients with liver disease. 03/08/2023 1:17 PM EDT 03/08/2023 1:17 PM EDT us Generic External Data Provider LAB BLOOD ORDERAB LES Final Result [facility] [address] [place] [phone] * HEPATITIS C AB W/REFL TO [...] a test for HCV RNA (test code 91527) is suggested. For additional information please refer to http://education.[employer]/faq/KPG44v2 (This link is being provided for informational/ educational purposes only.) 07/22/2021 4:23 PM EST us Sera Bello ANP HISTORICAL/NON ORDERABLE LABS Fi nal Result Performing Organization Address [facility] Phone Number [facility] [address] * (ABNORMAL) ALBUMIN, RANDOM URINE W/CREATININE [...] ORDERABLES Final Resul t Performing Organization Address [facility] Phone Number [facility] [address] * HIV 1/2 ANTIGEN/ANTIBODY,FOURTH GENERATION W/RFL (07/22/2021 4:23 PM EST) HIV-1/2 ANTIGEN AND ANTIBODIES, 4TH GENERATION W/ REFLEX NON-REACT [facility] NON-REACT [facility] Comment: HIV-1 antigen and [...] purpose. For additional information please refer to http://education.[employer]/faq/RFI792 (This link is being provided for informational/ educational purposes only.) The performance of this assay has not been clinically validated in patients less than 2 years old. 07/22/2021 4:23 PM EST Sera RICH LAB BLOOD ORDERABLES Final Resul t [facility] [address] from Last 3 Months or Most Recently Relevant to Health Maintenance [facility] Care Teams Employment Representative Relationship Specialty Start Date End Date Sera Bello ANP [address] [place] [address] PCP - General Family Medicine 05/29/21 Aguila Portillo MD [address] [place] [address] Drive [address]rd Floor [place] [phone] Cardiology 05/24/24
--- NOTE | 2025-01-20 08:54 | ECG_ITS ---
Test Reason : SOB Blood Pressure : */* mmHG Vent. Rate : 71 BPM Atrial Rate : 71 BPM P-R Int : 184 ms QRS Dur : 114 ms QT Int : 440 ms P-R-T Axes : 52 -73 -39 degrees QTcB Int : 478 ms Sinus rhythm with Premature atrial complexes with Aberrant conduction Left anterior fascicular block Minimal voltage criteria for LVH, may be normal variant ( Hamilton product ) ; possibly PVC Anterior infarct (cited on or before 06-Oct-2024) Abnormal ECG When compared with ECG of 17-Jan-2025 07:13, No significant changes seen Referred By: Kristie Mace Electronically Signed By: BERNARD GLASER
--- NOTE | 2025-01-20 08:54 | ED.GENADULT ---
HPI - General Adult General Chief complaint: Dyspnea Stated complaint: Dyspnea Time Seen by Provider: 01/20/25 08:52 Source: patient, RN notes reviewed and old records reviewed Mode of arrival: ambulatory Limitations: no limitations History of Present Illness ED Provider: Nakita HPI narrative: Patient is a 64-year-old male with history of COPD, hyperlipidemia, cardiomyopathy, HFrEF, nonsustained V-tach, asthma, smoking, T2 DM, HTN, RVH, cocaine use, alcohol use presenting to the emergency department with complaint of worsening dyspnea over the past week. 1-2 words at a time. Complains of chest pain and tightness as well as lightheadedness. Denies recent cough or fevers. Denies palpitations. Denies any nausea, vomiting, diarrhea, constipation. Complains of abdominal distention and states his abdomen feels tight which is increasing his dyspnea. States he feels as though he is not urinating as much as baseline. MD complaint: dyspnea Onset (ago): week(s) Related Data Home Medications ?Medication ?Instructions ?Recorded ?Confirmed metformin 500 mg tablet 500 mg PO BID 10/22/21 01/17/25 atorvastatin 40 mg tablet 40 mg PO DAILY 04/07/24 01/17/25 albuterol sulfate 90 mcg/actuation 1 inh inhalation Q4H PRN shortness 10/06/24 01/17/25 breath activated powder of breath or wheezing inhaler,sensor furosemide 40 mg tablet 40 mg PO BID 10/06/24 01/17/25 ergocalciferol (vitamin D2) 1,250 1,250 mcg PO WE 12/29/24 01/17/25 mcg (50,000 unit) capsule Previous Rx's ?Medication ?Instructions ?Recorded spironolactone 25 mg tablet 25 mg PO DAILY #30 tabs 09/19/21 metoprolol succinate 50 mg 50 mg PO DAILY #30 tabs 06/29/24 tablet,extended release 24 hr (Toprol XL) tiotropium bromide 18 mcg capsule 1 cap inhalation RDAILY 30 days #1 01/19/25 with inhalation device applicator Allergies Allergy/AdvReac Type Severity Reaction Status Date / Time penicillin V Allergy Severe Swollen Verified 01/20/25 07:11 face Penicillins (PENICILLINS) Allergy Severe ANGIOEDEMA Verified 01/20/25 07:11 shellfish derived (SHELLFISH Allergy Severe ANAPHYLAXIS Verified 01/20/25 07:11 DERIVED) fish derived (fish) Allergy Anaphylaxis Verified 01/20/25 07:11 seafood Allergy Anaphylaxis Verified 01/20/25 07:11 Review of Systems Review of Systems: As per HPI Yes all other systems are reviewed and are negative Constitutional: Constitutional: Reports as per HPI [facility] Past Medical History Medical History (Updated 01/20/25 @ 14:47 by Kristie Mace NP) Cocaine abuse Pulmonary HTN Heart failure with reduced ejection fraction Alcohol abuse Noncompliance Asthma Smoker Tobacco abuse Chronic HFrEF (heart failure with reduced ejection fraction) Streptococcus infection, group G Hypertension RVH (right ventricular hypertrophy) Tobacco abuse Elevated troponin Bacteremia Asthma Surgical History S/P cardiac catheterization Hx of appendectomy Family History Family History Mother Breast cancer Social History Social History Household Members: Family Household Members Other:: [facility] Housing: House Do you presently have visiting nurse or other home services: No Unable to assess alcohol history related to: Unknown Alcohol intake: current Alcohol intake frequency: 0-2 drinks per day Alcohol type: beer Patient Tobacco Use Status: Current everyday Tobacco user Tobacco use type: Cigarette Cigarette Packs Per Day: 0.5 Cigarettes Per Day: 2 Years Smoked: 25 Smoked in Last 30 Days: No e-Cigarette/Vaping Use: Never Used Second Hand Smoke Exposure: No Use of substances other than those prescribed or required for medical reasons: Yes Substance Use Type: Crack/Cocaine Substance Use Frequency: Occasionally Substance Use Frequency Other:: last use was last week Advance Directives: Yes Advance Directives on File: Yes Advance Directives Date on File: 02/27/21 service: No Current occupational status: employed Physical Exam ED Vital Signs: Vital Signs - 24 hr 01/20/25 07:10 01/20/25 07:27 01/20/25 07:33 Temperature 97.6 F Pulse Rate 65 66 Respiratory Rate 18 22 H Blood Pressure 133/87 117/83 Pulse Oximetry 90 L 89 L 96 Oxygen Delivery Method Room Air Room Air Nasal Cannula Oxygen Flow Rate 4 01/20/25 09:22 01/20/25 11:15 Temperature Pulse Rate 66 Respiratory Rate 22 H Blood Pressure 128/90 H Pulse Oximetry Oxygen Delivery Method Oxygen Flow Rate BMI result Body Mass Index 29.0 Vital signs have been reviewed and appear to be correct. Blood pressure normal. Heart rate normal. Respiratory rate normal. Temperature normal. Oxygen saturation hypoxic on room air. Const General: cooperative and no acute distress Orientation/consciousness: oriented to person, oriented to place, oriented to time and patient oriented x3 Limitations: no limitations HENMT Head: Yes normocephalic and Yes atraumatic Ears: external ears normal General nose exam: Normal external nose present Face and sinus: Yes face symmetric Mouth: oropharynx normal and moist mucous membranes Throat: Yes uvula midline Eyes Pupils: Equal, round and reactive pupils present Neck Neck: Yes normal visual inspection and Yes supple Resp Effort & Inspection: labored Auscultation: diminished lung sounds diffuse Cardio Rate: regular rate Rhythm: regular rhythm Heart sounds: S1 normal heart sound present and S2 normal heart sound present GI Palpation (GI): Soft to palpation and nontender Auscultation: normoactive bowel sounds General: Yes no CVA tenderness Back/Spine/Pelvis Back: no CVA tenderness Skin General skin exam: elasticity normal and turgor normal Neuro General: oriented to person, oriented to place, oriented to time, patient oriented x3, moves all extremities, no focal motor deficits and CN's II-XI intact bilaterally Cranial nerves: Yes Equal, round and reactive pupils present Cognition (Neuro): normal cognition Extrem General: Yes full ROM, Yes no pedal edema and Yes no calf tenderness Psych Mental Status: mental status grossly normal Affect: normal affect Thought process: Normal thought process present Medications Administered Discontinued Medications Generic Name Dose Route Start Last Admin Trade Name Freq PRN Reason Stop Dose Admin Albuterol Sulfate 5 mg/ 0 mg 01/20/25 09:17 01/20/25 09:20 Albuterol/Ipratropium 3 ml INHALE 01/20/25 09:18 1 each ONCE ONE Administration Furosemide 40 mg 01/20/25 10:55 01/20/25 11:15 Furosemide 40 Mg/4 Ml Vial IVPUSH 01/20/25 10:56 40 mg ONCE ONE Administration Protocol Methylprednisolone Sodium Succinate 125 mg 01/20/25 09:07 01/20/25 09:29 Methylprednisolone Sod Succ 125 Mg/2 Ml Vial IVPUSH 01/20/25 09:08 125 mg ONCE ONE Administration Medical Decision Making Medical Decision Making [facility] Narrative: Patient is a 64-year-old male with history of COPD, hyperlipidemia, cardiomyopathy, HFrEF, nonsustained V-tach, asthma, smoking, T2 DM, HTN, RVH, cocaine use, alcohol use presenting to the emergency department with complaint of worsening dyspnea over the past week. On exam patient is awake, A+Ox3, hypoxic on room air, VS otherwise WNL, afebrile, normal neurological exam without focal deficits, physical exam findings as above. He was placed on O2 via NC at 4lpm with improvement to 97%. He was admitted on 01/17 for CHF exacerbation, discharged yesterday around noon. Given reported symptoms and physical exam findings, initial differential includes but is not limited to asthma/COPD exacerbation, CHF exacerbation, viral illness, bronchitis, pneumonia. Less likely ACS. Labs notable for BNP of 2398, which is worse than upon admission on 01/17, troponins chronically elevated but flat x2, newly elevated transaminases and alk phos today. X-ray chest notable for cardiomegaly and pulmonary vascular congestion similar to x-ray from 01/17. Right upper Quadrant ultrasound notable for acute cholecystitis with positive sonographic Whaley's sign. My interpretation is in agreement with the radiologist's interpretation. Case discussed with Dr. Alejanrdo who recommends treating patient has CHF exacerbation and cholecystitis will be managed nonsurgically. Admission to medicine accepted by YAZAN Sanchez. Differential Diagnosis Differential Diagnoses: The differential diagnosis associated with the presentation includes as per [facility] Admission/Observation Consideration of admission/observation: Escalation of care including admission/observation considered Consult Healthcare Provider Management of the patient was discussed with: Hospitalist and Hog Driver (Dr. Alejandro) Lab Data [facility] Lab Attestation statement: I reviewed the patient's lab results. As per [facility] 01/20/25 09:24 01/20/25 10:21 Labs: Lab Results 01/20/25 01/20/25 01/20/25 Range/Units 09:24 09:30 10:21 WBC 6.7 (4.8-10.8) X10*3/uL RBC 4.78 (4.60-5.80) X10*6/uL Hgb 14.9 (14.0-18.0) g/dl Hct 45.1 (42.0-52.0) % MCV 94.4 (80.0-98.0) fL MCH 31.2 (27.0-33.0) pg MCHC 33.0 (31.0-36.0) g/dl RDW 14.5 (11.0-16.0) % Plt Count 253 (160-400) X10*3/uL MPV 9.5 (9.4-12.4) fL Immature Gran % (Auto) 0.3 (0.0-0.4) % Neut % (Auto) 62.8 (45-73) % Lymph % (Auto) 28.0 (20-40) % [place] % (Auto) 7.9 (2-11) % Eos % (Auto) 0.6 (0-4) % Baso % (Auto) 0.4 (0-2) % Lymph # (Auto) 1.9 (1.2-4.9) X10*3/uL [place] # (Auto) 0.5 (0.1-1.2) X10*3/uL Eos # (Auto) 0.0 (0.0-0.4) X10*3/uL Baso # (Auto) 0.0 (0.0-0.2) X10*3/uL Abs Immat Gran (auto) 0.02 (0.00-0.03) X10*3/uL Absolute Neuts (auto) 4.2 (2.0-8.3) x10*3/uL Absolute Nucleated RBC 0.000 (0.0-0.012) X10*3/uL Nucleated RBC % (auto) 0.0 (0.0-0.2) /100WBC PT 14.3 H D (10.9-12.4) SEC INR 1.2 H (0.9-1.1) VBG pH 7.35 (7.32-7.43) VBG pCO2 65 mmHg VBG pO2 92 mmHg VBG HCO3 37 H (22-26) mmol/L VBG O2 Saturation 96.0 % VBG Base Excess 8.8 mmol/L Sodium 139 (135-145) mmol/L Potassium 4.7 (3.3-5.1) mmol/L Chloride 96 (96-108) mmol/L Carbon Dioxide 33 H (22-29) mmol/L Anion Gap 15 (12-20) BUN 50 H (9-16) mg/dL Creatinine 1.42 H (0.5-1.4) mg/dL Estim Creat Clear Calc 61.5 Estimated GFR 50 Random Glucose 151 H (60-115) mg/dL Calcium 9.6 (8.4-10.2) mg/dL Total Bilirubin 0.6 (0.0-1.0) mg/dL AST 126 H (5-37) U/L ALT 113 H (0-40) U/L Alkaline Phosphatase 251 H (39-117) U/L Troponin I High Sens 94.7 H (<3.5-35.0) ng/L B-Natriuretic Peptide 2398 H (<100) pg/mL Total Protein 7.5 (6.5-8.0) g/dL Albumin 3.7 (3.5-5.0) g/dL Influenza Type A (PCR) NEGATIVE (Negative) Influenza Type B (PCR) NEGATIVE (Negative) RSV RNA Qual (PCR) NEGATIVE (Negative) SARS-CoV-2 RNA (RT-PCR) NEGATIVE (Negative) 01/20/25 Range/Units 11:14 WBC (4.8-10.8) X10*3/uL RBC (4.60-5.80) X10*6/uL Hgb (14.0-18.0) g/dl Hct (42.0-52.0) % MCV (80.0-98.0) fL MCH (27.0-33.0) pg MCHC (31.0-36.0) g/dl RDW (11.0-16.0) % Plt Count (160-400) X10*3/uL MPV (9.4-12.4) fL Immature Gran % (Auto) (0.0-0.4) % Neut % (Auto) (45-73) % Lymph % (Auto) (20-40) % [place] % (Auto) (2-11) % Eos % (Auto) (0-4) % Baso % (Auto) (0-2) % Lymph # (Auto) (1.2-4.9) X10*3/uL [place] # (Auto) (0.1-1.2) X10*3/uL Eos # (Auto) (0.0-0.4) X10*3/uL Baso # (Auto) (0.0-0.2) X10*3/uL Abs Immat Gran (auto) (0.00-0.03) X10*3/uL Absolute Neuts (auto) (2.0-8.3) x10*3/uL Absolute Nucleated RBC (0.0-0.012) X10*3/uL Nucleated RBC % (auto) (0.0-0.2) /100WBC PT (10.9-12.4) SEC INR (0.9-1.1) VBG pH (7.32-7.43) VBG pCO2 mmHg VBG pO2 mmHg VBG HCO3 (22-26) mmol/L VBG O2 Saturation % VBG Base Excess mmol/L Sodium (135-145) mmol/L Potassium (3.3-5.1) mmol/L Chloride (96-108) mmol/L Carbon Dioxide (22-29) mmol/L Anion Gap (12-20) BUN (9-16) mg/dL Creatinine (0.5-1.4) mg/dL Estim Creat Clear Calc Estimated GFR Random Glucose (60-115) mg/dL Calcium (8.4-10.2) mg/dL Total Bilirubin (0.0-1.0) mg/dL AST (5-37) U/L ALT (0-40) U/L Alkaline Phosphatase (39-117) U/L Troponin I High Sens 95.8 H (<3.5-35.0) ng/L B-Natriuretic Peptide (<100) pg/mL Total Protein (6.5-8.0) g/dL Albumin (3.5-5.0) g/dL Influenza Type A (PCR) (Negative) Influenza Type B (PCR) (Negative) RSV RNA Qual (PCR) (Negative) SARS-CoV-2 RNA (RT-PCR) (Negative) Independent Interpretation I performed an independent interpretation of an: Plain X-Ray and Ultrasound Interpretation: X-ray chest notable for cardiomegaly and pulmonary vascular congestion similar to x-ray from 01/17. Right upper Quadrant ultrasound notable for acute cholecystitis with positive sonographic Whaley's sign. Radiology Impression Discussion of test interpretation with radiology: I have reviewed the radiologist's reading. Radiologist Impression: 2 view chest x-ray Comparison: 01/17/2025 Findings: No consolidation or effusion. Redemonstration of cardiomegaly and pulmonary vascular congestion. No acute fracture. IMPRESSION: Redemonstration of cardiomegaly and pulmonary vascular congestion. US abdomen limited Comparison: None provided Findings: The visualized pancreas is normal. The liver is normal in size and echotexture. There is no intrahepatic bile duct dilatation. The common duct is 3 mm in diameter. Gallbladder wall is thickened measuring 9 mm diameter with a small amount of pericholecystic fluid. No cholelithiasis. Positive sonographic Whaley's sign. The right kidney is 11.4 cm in length. No ascites. IMPRESSION: Acute cholecystitis. External Record Review External record reviewed: Inpatient record, Office record and Outpatient record Critical Care Time Critical Care Time Critical Care Time: Yes Total Critical Care Time: 49 Attestation: I have personally provided critical care time exclusive of time spent on separately billable procedures. Time includes review of lab data, radiology results, discussion with consultants, and monitoring for potential decompensation. Intervention performed as documented. Discharge Plan Discharge Prescriptions: No Action metoprolol succinate [Toprol XL] 50 mg tablet extended release 24 hr 50 mg PO DAILY Qty: 30 5RF spironolactone 25 mg Tablet 25 mg PO DAILY Qty: 30 0RF Protocol: Hold for SBP< HOLD for SBP < : 90 atorvastatin 40 mg tablet 40 mg PO DAILY Rx Instructions: Take 1 tablet at bedtime daily Dose has been increased to 40mg tiotropium bromide 18 mcg capsule, w/inhalation device 1 cap inhalation RDAILY 30 Days Qty: 1 0RF furosemide 40 mg tablet 40 mg PO BID Protocol: Hold for SBP< HOLD for SBP < : 90 albuterol sulfate 90 mcg/actuation aero powdr breath act w/sensor 1 inh inhalation Q4H PRN (Reason: shortness of breath or wheezing) ergocalciferol (vitamin D2) 1,250 mcg (50,000 unit) capsule 1,250 mcg PO WE metformin 500 mg tablet 500 mg PO BID Print Language: Djib[place]ian
[2025-01-20] MEDS: Albuterol Sulfate 5 MG, Albuterol/Iprat 2.5/0.5MG 3 ML 3 ML INHALE (09:20)
[2025-01-20 09:29] LABS: MANUAL DIFF FLAG NO
[2025-01-20 09:31] LABS: Hematocrit 45.1 % (42.0-52.0); Hemoglobin 14.9 g/dl (14.0-18.0); Imm Gran Abs Auto 0.02 X10*3/uL (0.00-0.03); Imm Gran Pct Auto 0.3 % (0.0-0.4); Lymphocytes Absolute Auto 1.9 X10*3/uL (1.2-4.9); Mean Corpuscular HGB Conc 33.0 g/dl (31.0-36.0); Mean Corpuscular Hemoglobin 31.2 pg (27.0-33.0); Mean Corpuscular Volume 94.4 fL (80.0-98.0); NRBC Abs Auto 0.000 X10*3/uL (0.0-0.012); NRBC Pct Auto 0.0 /100WBC (0.0-0.2); Platelet Count 253 X10*3/uL (160-400); Red Blood Count 4.78 X10*6/uL (4.60-5.80); White Blood Count 6.7 X10*3/uL (4.8-10.8)
[2025-01-20 09:38] LABS: VBG HCO3 37 mmol/L (22-26); VBG O2 % Saturation 96.0 %
[2025-01-20 09:39] LABS: Venous Blood Gas Refer to POC result
[2025-01-20 09:43] LABS: INTERNATIONAL NORM RATIO 1.2 (0.9-1.1); Prothrombin Time 14.3 SEC (10.9-12.4)
[2025-01-20 09:53] LABS: Troponin-I High Sensitivity 94.7 ng/L (<3.5-35.0)
[2025-01-20 10:10] LABS: B Type Natriuretic Peptide 2398 pg/mL (<100)
[2025-01-20 10:11] LABS: Resp Syncy Virus RNA Qual PCR NEGATIVE (Negative); SARS COV2 PCR INHOUSE NEGATIVE (Negative)
[2025-01-20 10:44] LABS: Alanine Aminotransferase 113 U/L (0-40); Albumin Level 3.7 g/dL (3.5-5.0); Alkaline Phosphatase 251 U/L (39-117); Anion Gap 15 (12-20); Aspartate Amino Transferase 126 U/L (5-37); Blood Urea Nitrogen 50 mg/dL (9-16); Calcium 9.6 mg/dL (8.4-10.2); Carbon Dioxide 33 mmol/L (22-29); Chloride 96 mmol/L (96-108); Creatinine Clr Calc Pharmacy 61.5; Estimated Glomerular Filt Rate 50; Potassium 4.7 mmol/L (3.3-5.1); Sodium 139 mmol/L (135-145); Total Protein 7.5 g/dL (6.5-8.0)
[2025-01-20] MEDS: Furosemide 40 MG/4 ML VIAL IVPUSH ×2 (11:15→18:20)
[2025-01-20 11:47] LABS: Troponin-I High Sensitivity 95.8 ng/L (<3.5-35.0)
--- NOTE | 2025-01-20 14:54 | PM.IMHP ---
History of Present Illness Date of Service: 01/20/25 Attending physician on admission: Sabi Ayala Chief Complaint: sob, abdominal pain This is a 64-year-old male with past medical history of alcohol dependence, nonischemic cardiomyopathy with EF of 15%, diabetes discharge from the hospital yesterday after being treated for acute CHF who presents to the emergency department today with shortness of breath and abdominal pain. Patient states he was feeling better when he left the hospital. When he left the hospital he went out with friends to drink. In addition to drinking beer he had homemade brownies which made him hallucinate and he thinks the brownies released with drugs. He began having abdominal pain primarily located in the right upper quadrant. He went to bed hoping he would feel better but when he woke up this morning he had persistent shortness of breath and persistent abdominal pain. He returned to the emergency room where he was found to have hypoxia, elevated BNP greater than post admission. Chest x-ray showed redemonstration of cardiomegaly and pulmonary vascular congestion. In addition his LFTs were noted to be elevated and he underwent an abdominal ultrasound which showed evidence of acute cholecystitis. Use evaluated by General surgery who felt he was not a surgical candidate and recommended conservative management with IV antibiotics. Review of Systems Review of Systems: Yes all other systems are reviewed and are negative Constitutional: Constitutional: Denies chills and Denies fever(s) ENT: Denies dizziness Cardiovascular: Cardiovascular: Denies chest pain and Reports dyspnea Respiratory: Respiratory: Denies cough and Reports dyspnea Gastrointestinal: Gastrointestinal: Reports abdominal pain and Denies vomiting Neurologic: Denies dizziness [facility] Medical History Cocaine abuse Pulmonary HTN Heart failure with reduced ejection fraction Alcohol abuse Noncompliance Asthma Smoker Tobacco abuse Chronic HFrEF (heart failure with reduced ejection fraction) Streptococcus infection, group G Hypertension RVH (right ventricular hypertrophy) Tobacco abuse Elevated troponin Bacteremia Asthma Family History Mother Breast cancer Surgical History S/P cardiac catheterization Hx of appendectomy Social History Household Members: Family Household Members Other:: [facility] Housing: House Do you presently have visiting nurse or other home services: No Unable to assess alcohol history related to: Unknown Alcohol intake: current Alcohol intake frequency: 0-2 drinks per day Alcohol type: beer Patient Tobacco Use Status: Current everyday Tobacco user Tobacco use type: Cigarette Cigarette Packs Per Day: 0.5 Cigarettes Per Day: 2 Years Smoked: 25 Smoked in Last 30 Days: No e-Cigarette/Vaping Use: Never Used Second Hand Smoke Exposure: No Use of substances other than those prescribed or required for medical reasons: Yes Substance Use Type: Crack/Cocaine Substance Use Frequency: Occasionally Substance Use Frequency Other:: last use was last week Advance Directives: Yes Advance Directives on File: Yes Advance Directives Date on File: 02/27/21 service: No Current occupational status: employed Meds Allergies Allergy/AdvReac Type Severity Reaction Status Date / Time penicillin V Allergy Severe Swollen Verified 01/20/25 07:11 face Penicillins (PENICILLINS) Allergy Severe ANGIOEDEMA Verified 01/20/25 07:11 shellfish derived (SHELLFISH Allergy Severe ANAPHYLAXIS Verified 01/20/25 07:11 DERIVED) fish derived (fish) Allergy Anaphylaxis Verified 01/20/25 07:11 seafood Allergy Anaphylaxis Verified 01/20/25 07:11 Active Medications: Current Medications Acetaminophen (Acetaminophen 325 Mg Tablet) 650 mg PO Q6H PRN PRN Reason: Pain, Mild 1-3,fever,headache Calcium Carbonate (Calcium Carbonate 750 Mg Tab.Chew) 750 mg PO Q4H PRN PRN Reason: Heartburn Dextrose (Dextrose 50 % 25 Gm/50 Ml Syringe) 25 gm IVPUSH Q15M PRN; Protocol PRN Reason: per Hypoglycemia Standing Ord. Enoxaparin Sodium (Enoxaparin Sodium 40 Mg/0.4 Ml Syringe) 40 mg SUBCUT Q24H ELANA Furosemide (Furosemide 40 Mg/4 Ml Vial) 40 mg IVPUSH BID@0900,1800 ELANA; Protocol Glucose (Glucose Gel 15 Gm Gel..Gram.) 15 gm PO Q15M PRN; Protocol PRN Reason: per Hypoglycemia Standing Ord. Insulin Human Lispro (Insulin Lispro 100 Unit/Ml 3 Ml Vial) 0 unit SUBCUT QIDACHS ELANA; Protocol Magnesium Hydroxide (Milk Of Magnesia 30 Ml Oral.Susp) 30 ml PO DAILY PRN PRN Reason: Constipation Melatonin (Melatonin 3 Mg Tablet) 6 mg PO BEDTIME PRN PRN Reason: Insomnia Morphine Sulfate (Morphine Sulfate 4 Mg/Ml Cartridge) 2 mg IVPUSH Q4H PRN; Protocol PRN Reason: Pain, Severe (Pain Scale 7-10) Sodium Chloride (0.9 % Sodium Chloride Flush 3 Ml Syringe) 3 ml IVFLUSH QSHIFT [facility] Home Medications ?Medication ?Instructions ?Recorded ?Confirmed ?Last Taken ?Type metformin 500 mg tablet 500 mg PO BID 10/22/21 01/20/25 01/16/25 History atorvastatin 40 mg tablet 40 mg PO DAILY 04/07/24 01/20/25 01/16/25 History albuterol sulfate 90 mcg/actuation 2 inh inhalation Q6H PRN shortness 10/06/24 01/20/25 10/05/24 History breath activated powder of breath or wheezing inhaler,sensor furosemide 40 mg tablet 40 mg PO BID 10/06/24 01/20/25 01/16/25 History ergocalciferol (vitamin D2) 1,250 1,250 mcg PO MO@0900 12/29/24 01/20/25 01/10/25 History mcg (50,000 unit) capsule aspirin 81 mg tablet,delayed 81 mg PO QAM 01/20/25 01/20/25 Unknown History release fluticasone 250 mcg-salmeterol 50 1 ea inhalation BID 01/20/25 01/20/25 Unknown History mcg/dose blistr powdr for inhalation tiotropium bromide 2.5 2 puff inhalation DAILY 01/20/25 01/20/25 Unknown History mcg/actuation mist for inhalation (Spiriva Respimat) Physical Exam Vital Signs and Narrative: Vital Signs: Last Vital Signs Temp 97.6 F 01/20/25 07:10 Pulse 66 01/20/25 09:22 Resp 22 H 01/20/25 09:22 BP 128/90 H 01/20/25 11:15 Pulse Ox 96 01/20/25 07:33 O2 Del Method Nasal Cannula 01/20/25 07:33 O2 Flow Rate 4 01/20/25 07:33 BMI result Body Mass Index 29.0 Const: Other: appears sob General: alert and awake Nutritional Appearance: overweight Orientation/consciousness: patient oriented x3 Resp: Other: increased work of breathing; dim no wheeze GI: Other: mild abdominal distention, no rigidity, no guarding or rebound; tender RUQ Neuro: General: patient oriented x3, moves all extremities and CN's II-XI intact bilaterally Results Labs 01/20/25 09:24 01/20/25 10:21 Labs: Laboratory Results - last 24 hr 01/20/25 01/20/25 01/20/25 09:24 09:30 10:21 MCV 94.4 MCH 31.2 MCHC 33.0 RDW 14.5 Plt Count 253 MPV 9.5 Immature Gran % (Auto) 0.3 Neut % (Auto) 62.8 Lymph % (Auto) 28.0 [place] % (Auto) 7.9 Eos % (Auto) 0.6 Baso % (Auto) 0.4 Lymph # (Auto) 1.9 [place] # (Auto) 0.5 Eos # (Auto) 0.0 Baso # (Auto) 0.0 Abs Immat Gran (auto) 0.02 Absolute Neuts (auto) 4.2 Absolute Nucleated RBC 0.000 Nucleated RBC % (auto) 0.0 PT 14.3 H D INR 1.2 H VBG pH 7.35 VBG pCO2 65 VBG pO2 92 VBG HCO3 37 H VBG O2 Saturation 96.0 VBG Base Excess 8.8 Anion Gap 15 Estim Creat Clear Calc 61.5 Estimated GFR 50 Random Glucose 151 H Calcium 9.6 Total Bilirubin 0.6 AST 126 H ALT 113 H Alkaline Phosphatase 251 H B-Natriuretic Peptide 2398 H Total Protein 7.5 Albumin 3.7 Influenza Type A (PCR) NEGATIVE Influenza Type B (PCR) NEGATIVE RSV RNA Qual (PCR) NEGATIVE SARS-CoV-2 RNA (RT-PCR) NEGATIVE Assessment and Plan (1) Alcohol use: Status: Acute (2) Cocaine abuse: Status: Acute (3) Acute on chronic combined systolic (congestive) and diastolic (congestive) heart failure: Status: Acute (4) Acute cholecystitis: Status: Acute Plan This is a 64-year-old male with history of 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%, alcohol use disorder, history of NSVT, diabetes, hypertension, hyperlipidemia, just discharged from the hospital yesterday after being treated for acute CHF who presents to the emergency department today with shortness of breath found to have recurrent CHF and acute cholecystitis Acute respiratory failure with hypoxia due to acute on chronic CHF h/o combined systolic and diastolic CHF; most recent echo with EF 15-20% with grade II diastolic dysfunction BNP back up to 2398, chest x-ray with pulmonary congestion Received 40 mg IV Lasix in ED-continue IV b.i.d. Lasix Follow I's and O's, daily weight Trend BNP, renal function, electrolytes Continue supplemental oxygen, wean as tolerated continue baseline metoprolol and spironolactone Acute cholecystitis Seen by General surgery, plan for conservative management with antibiotics normal white count, no fever; no sepsis IV ceftriaxone, Flagyl NPO, advance as tolerated pain control trend LFTs alcohol use disorder low risk for withdrawal given recent hospitalization follow [facility] h/o cocaine abuse check tox screen [id number] type 2 diabetes Sliding scale insulin continue Jardiance POC glucose Hold metformin elevated cardiac enzymes flat; appears chronically elevated COPD No exacerbation continue baseline inhalers Hypertension Continue metoprolol, spironolactone Hyperlipidemia Statin Quality Stroke Does the patient have a stroke diagnosis?: No VTE Prior VTE?: No VTE Risk Level:: Medical - moderate - high VTE Device Contraindication: N/A - Device Ordered VTE Drug Contraindication: N/A - Med Ordered
--- NOTE | 2025-01-20 15:04 | PM.CNGS ---
History of Present Illness Consult details Consult date: 01/20/25 Narrative: 64-year-old male with multiple medical problems including COPD, cocaine abuse, CHF, alcohol use, cardiomyopathy, here in the ER because of increasing shortness of breath He was actually just discharged from the hospital yesterday after managed in the hospital for a few days for CHF. His BNP had gone down prior to discharge. However, at home, he admits to taking some laced brownies last night and had been drinking alcohol heavily. He became short of breath again today so he came back to the emergency room. His BNP was again markedly elevated His AST and ALT were also elevated so he underwent an ultrasound in the ER showing some gallbladder wall thickening pericholecystic fluid suggestive of acute cholecystitis. He says he has a abdominal pain but this is mostly lower abdomen and says that this is mild. He denies any nausea or vomiting. Review of Systems Constitutional: Constitutional: Denies chills and Denies fever(s) Cardiovascular: Cardiovascular: Denies chest pain, Reports dyspnea and Reports dyspnea on exertion Respiratory: Respiratory: Denies cough, Reports dyspnea and Reports dyspnea on exertion Gastrointestinal: Gastrointestinal: Denies hematochezia and Denies change in bowel habits Genitourinary: Genitourinary: Denies hematuria and Denies difficulty urinating Musculoskeletal: Musculoskeletal: Denies back pain and Denies limited range of motion Neurologic: Denies focal weakness and Denies convulsions Psychiatric: Psychiatric: Denies depression and Denies mood swings PMFSH Past Medical History Medical History Cocaine abuse Pulmonary HTN Heart failure with reduced ejection fraction Alcohol abuse Noncompliance Asthma Smoker Tobacco abuse Chronic HFrEF (heart failure with reduced ejection fraction) Streptococcus infection, group G Hypertension RVH (right ventricular hypertrophy) Tobacco abuse Elevated troponin Bacteremia Asthma Family History Family History Mother Breast cancer Surgical History Surgical History S/P cardiac catheterization Hx of appendectomy Social History Social History Household Members: Family Household Members Other:: lives alone Housing: Apartment Do you presently have visiting nurse or other home services: No Unable to assess alcohol history related to: Unknown Alcohol intake: current Alcohol intake frequency: 0-2 drinks per day Alcohol type: beer Patient Tobacco Use Status: Current someday Tobacco user Tobacco use type: Cigarette Cigarette Packs Per Day: 0.5 Cigarettes Per Day: 5 Years Smoked: 25 Smoked in Last 30 Days: Yes e-Cigarette/Vaping Use: Currently Using Patient Interested in Nicotine Replacement: No Patient Given Instructions on How to Stop Smoking: No Second Hand Smoke Exposure: No Use of substances other than those prescribed or required for medical reasons: Yes Substance Use Type: Crack/Cocaine Substance Use Frequency: Occasionally Substance Use Frequency Other:: last use was last week Currently Displaying Signs/Symptoms of Drug Intoxication Withdrawal: No Have you been hit, kicked, punched, or otherwise hurt by someone within the past year? If so, by whom?: No Do you feel safe in your current relationship?: Yes Is there a partner from a previous relationship who is making you feel unsafe now?: No Are you made to feel afraid or neglected: No Advance Directives: Yes Advance Directives on File: Yes Advance Directives Date on File: 02/27/21 Do you have a plan to hurt others: No Plan Recently lost weight without trying: No Eating poorly because of decreased appetite: No Nutrition Risks: No Nutritional Risk Poor oral hygiene: No service: No Current occupational status: employed Meds Allergies Allergy/AdvReac Type Severity Reaction Status Date / Time penicillin V Allergy Severe Swollen Verified 01/20/25 07:11 face Penicillins (PENICILLINS) Allergy Severe ANGIOEDEMA Verified 01/20/25 07:11 shellfish derived (SHELLFISH Allergy Severe ANAPHYLAXIS Verified 01/20/25 07:11 DERIVED) fish derived (fish) Allergy Anaphylaxis Verified 01/20/25 07:11 seafood Allergy Anaphylaxis Verified 01/20/25 07:11 Active Medications: Current Medications Acetaminophen (Acetaminophen 325 Mg Tablet) 650 mg PO Q6H PRN PRN Reason: Pain, Mild 1-3,fever,headache Calcium Carbonate (Calcium Carbonate 750 Mg Tab.Chew) 750 mg PO Q4H PRN PRN Reason: Heartburn Ceftriaxone Sodium (Ceftriaxone Sodium 1 Gm Vial) 1 gm IVPUSH Q24H [facility] Dextrose (Dextrose 50 % 25 Gm/50 Ml Syringe) 25 gm IVPUSH Q15M PRN; Protocol PRN Reason: per Hypoglycemia Standing Ord. Enoxaparin Sodium (Enoxaparin Sodium 40 Mg/0.4 Ml Syringe) 40 mg SUBCUT Q24H [facility] Furosemide (Furosemide 40 Mg/4 Ml Vial) 40 mg IVPUSH BID@0900,1800 [facility]; Protocol Glucose (Glucose Gel 15 Gm Gel..Gram.) 15 gm PO Q15M PRN; Protocol PRN Reason: per Hypoglycemia Standing Ord. Metronidazole (Flagyl) 500 mg in 100 mls @ 100 mls/hr IV Q6H [facility] Insulin Human Lispro (Insulin Lispro 100 Unit/Ml 3 Ml Vial) 0 unit SUBCUT QIDACHS [facility]; Protocol Magnesium Hydroxide (Milk Of Magnesia 30 Ml Oral.Susp) 30 ml PO DAILY PRN PRN Reason: Constipation Melatonin (Melatonin 3 Mg Tablet) 6 mg PO BEDTIME PRN PRN Reason: Insomnia Morphine Sulfate (Morphine Sulfate 4 Mg/Ml Cartridge) 2 mg IVPUSH Q4H PRN; Protocol PRN Reason: Pain, Severe (Pain Scale 7-10) Sodium Chloride (0.9 % Sodium Chloride Flush 3 Ml Syringe) 3 ml IVFLUSH QSHIFT [facility] Home Medications ?Medication ?Instructions ?Recorded ?Confirmed ?Last Taken ?Type metformin 500 mg tablet 500 mg PO BID 10/22/21 01/20/25 01/16/25 History atorvastatin 40 mg tablet 40 mg PO DAILY 04/07/24 01/20/25 01/16/25 History albuterol sulfate 90 mcg/actuation 2 inh inhalation Q6H PRN shortness 10/06/24 01/20/25 10/05/24 History breath activated powder of breath or wheezing inhaler,sensor furosemide 40 mg tablet 40 mg PO BID 10/06/24 01/20/25 01/16/25 History ergocalciferol (vitamin D2) 1,250 1,250 mcg PO MO@0900 12/29/24 01/20/25 01/10/25 History mcg (50,000 unit) capsule aspirin 81 mg tablet,delayed 81 mg PO QAM 01/20/25 01/20/25 Unknown History release fluticasone 250 mcg-salmeterol 50 1 ea inhalation BID 01/20/25 01/20/25 Unknown History mcg/dose blistr powdr for inhalation tiotropium bromide 2.5 2 puff inhalation DAILY 01/20/25 01/20/25 Unknown History mcg/actuation mist for inhalation (Spiriva Respimat) Physical Exam Vital Signs: Vital Signs: Last Vital Signs Temp 97.6 F 01/20/25 07:10 Pulse 66 01/20/25 09:22 Resp 22 H 01/20/25 09:22 BP 128/90 H 01/20/25 11:15 Pulse Ox 96 01/20/25 07:33 O2 Del Method Nasal Cannula 01/20/25 07:33 O2 Flow Rate 4 01/20/25 07:33 BMI result Body Mass Index 29.0 Const: Other: Some redness of breath especially when talking Orientation/consciousness: patient oriented x3 Neck: Neck: Yes no lymphadenopathy Resp: Other: Short of breath especially when talking Cardio: Rhythm: regular rhythm GI: Other: Mild tenderness diffusely with no guarding or rebound Palpation (GI): Soft to palpation, Tenderness to palpation present (GI) and no guarding Neuro: General: patient oriented x3 Results Labs 01/21/25 06:16 01/22/25 07:00 Labs: Abnormal lab results 01/20/25 01/20/25 01/20/25 Range/Units 09:24 09:30 10:21 PT 14.3 H D (10.9-12.4) SEC INR 1.2 H (0.9-1.1) VBG HCO3 37 H (22-26) mmol/L Carbon Dioxide 33 H (22-29) mmol/L BUN 50 H (9-16) mg/dL Creatinine 1.42 H (0.5-1.4) mg/dL Random Glucose 151 H (60-115) mg/dL AST 126 H (5-37) U/L ALT 113 H (0-40) U/L Alkaline Phosphatase 251 H (39-117) U/L Troponin I High Sens 94.7 H (<3.5-35.0) ng/L B-Natriuretic Peptide 2398 H (<100) pg/mL 01/20/25 Range/Units 11:14 PT (10.9-12.4) SEC INR (0.9-1.1) VBG HCO3 (22-26) mmol/L Carbon Dioxide (22-29) mmol/L BUN (9-16) mg/dL Creatinine (0.5-1.4) mg/dL Random Glucose (60-115) mg/dL AST (5-37) U/L ALT (0-40) U/L Alkaline Phosphatase (39-117) U/L Troponin I High Sens 95.8 H (<3.5-35.0) ng/L B-Natriuretic Peptide (<100) pg/mL Short CBC 01/20/25 Range/Units 09:24 WBC 6.7 (4.8-10.8) X10*3/uL Hgb 14.9 (14.0-18.0) g/dl Hct 45.1 (42.0-52.0) % Plt Count 253 (160-400) X10*3/uL BMP 01/20/25 10:21 Sodium 139 Potassium 4.7 Chloride 96 Carbon Dioxide 33 H BUN 50 H Creatinine 1.42 H Calcium 9.6 Liver Function 01/20/25 Range/Units 10:21 Total Bilirubin 0.6 (0.0-1.0) mg/dL AST 126 H (5-37) U/L ALT 113 H (0-40) U/L Alkaline Phosphatase 251 H (39-117) U/L Albumin 3.7 (3.5-5.0) g/dL All other labs normal. Assessment and Plan (1) Acute exacerbation of congestive heart failure: Qualifiers: Heart failure type: unspecified Qualified Code(s): I50.9 - Heart failure, unspecified Status: Acute 64-year-old male with known CHF, cardiomyopathy, here in the ER for increasing shortness of breath again after being discharged from the ER yesterday. He admits to taking some laced brownies at home as well as drinking a lot of alcohol. His BNP is again elevated to 2398. His AST and ALT were elevated so he was sent for an ultrasound which shows pericholecystic fluid along with some thickening of the gallbladder were. This findings may be seen as well in CHF. I did not see any gallstones. I had would not proceed with any surgical intervention currently. I would periodically as treating his acute on chronic CHF. His abdominal exam is otherwise benign. I will follow him while he is in the hospital Procedures Date of Service Date of Service: 01/22/25
[2025-01-20 15:16] LABS: Magnesium 2.1 mg/dL (1.6-2.6)
--- NOTE | 2025-01-20 15:26 | PHA.MEDREC ---
Pharmacy Consult ? Medication Reconciliation Pharmacy has completed the medication reconciliation.Med rec complete by pharmacy history and Rx bottles at bedside. Patient was very sleepy and not sure if he was understanding the questions. Call out to his daughter and left message to see if she can help confirm what meds he takes.
[2025-01-20] MEDS: metroNIDAZOLE/NS 500 MG/100 ML PIGGYBACK 100 MG IV ×2 (16:11→20:42)
[2025-01-20] MEDS: 0.9 % Sodium Chloride Flush 3 ML SYRINGE IVFLUSH ×2 (16:20→20:44)
--- NOTE | 2025-01-20 17:36 | PC.NURSE ---
Pt ripped out his IV access to L hand. He states he had to use the bathroom and he didn't know. Will attempt additional IV access.
[2025-01-20 18:11] LABS: Glucose, Whole Blood 306 mg/dL (60-115)
[2025-01-20] MEDS: Aspirin Enteric Coated 81 MG TABLET.DR PO (18:11)
--- NOTE | 2025-01-20 20:00 | MHC.EDTECH ---
@1954 PATIENT BELONGING LIST COMPLETED
[2025-01-20 20:19] LABS: Glucose, Whole Blood 249 mg/dL (60-115)
[2025-01-20 22:52] LABS: Cannabinoid Screen Urine Not Detected (Not Detect)
[2025-01-21] MEDS: metroNIDAZOLE/NS 500 MG/100 ML PIGGYBACK 100 MG IV ×4 (03:19→20:47)
[2025-01-21 03:35] VITALS: BP 138/97; PULSE 99; RESP 18; TEMP 36.7; O2SAT 94
[2025-01-21 06:55] VITALS: BP 148/86; PULSE 80; RESP 18; TEMP 37.2; O2SAT 93
[2025-01-21 07:14] LABS: Hematocrit 44.9 % (42.0-52.0); Hemoglobin 14.7 g/dl (14.0-18.0); Mean Corpuscular HGB Conc 32.7 g/dl (31.0-36.0); Mean Corpuscular Hemoglobin 30.7 pg (27.0-33.0); Mean Corpuscular Volume 93.7 fL (80.0-98.0); NRBC Abs Auto 0.000 X10*3/uL (0.0-0.012); NRBC Pct Auto 0.0 /100WBC (0.0-0.2); Platelet Count 244 X10*3/uL (160-400); Red Blood Count 4.79 X10*6/uL (4.60-5.80); White Blood Count 5.5 X10*3/uL (4.8-10.8)
[2025-01-21 07:17] LABS: Glucose, Whole Blood 172 mg/dL (60-115)
[2025-01-21 07:28] LABS: Alanine Aminotransferase 96 U/L (0-40); Albumin Level 3.5 g/dL (3.5-5.0); Alkaline Phosphatase 203 U/L (39-117); Anion Gap 14 (12-20); Aspartate Amino Transferase 75 U/L (5-37); Blood Urea Nitrogen 48 mg/dL (9-16); Calcium 9.2 mg/dL (8.4-10.2); Carbon Dioxide 34 mmol/L (22-29); Chloride 97 mmol/L (96-108); Creatinine Clr Calc Pharmacy 65.6; Estimated Glomerular Filt Rate > 60; Potassium 5.0 mmol/L (3.3-5.1); Sodium 140 mmol/L (135-145); Total Protein 7.0 g/dL (6.5-8.0)
[2025-01-21 07:36] LABS: B Type Natriuretic Peptide 2996 pg/mL (<100)
[2025-01-21] MEDS: Furosemide 40 MG/4 ML VIAL IVPUSH ×2 (09:40→18:04)
[2025-01-21] MEDS: Aspirin Enteric Coated 81 MG TABLET.DR PO (09:40)
[2025-01-21] MEDS: Metoprolol Succinate ER 50 MG TAB.ER.24H PO (09:43)
--- NOTE | 2025-01-21 09:53 | PM.PNGS ---
Subjective Subjective Date of Service: 01/21/25 Interval history: Still remains short of breath Denies abdominal pain No vomiting Physical Exam Vital Signs: Vital Signs: Last Vital Signs Temp 98.9 F 01/21/25 06:55 Pulse 80 01/21/25 06:55 Resp 18 01/21/25 06:55 BP 148/86 H 01/21/25 06:55 Pulse Ox 93 01/21/25 06:55 O2 Del Method Nasal Cannula 01/21/25 06:55 O2 Flow Rate 4 01/21/25 06:55 BMI result Body Mass Index 26.6 Const: Other: Some shortness of breath Resp: Other: Some shortness of breath Cardio: Rate: regular rate GI: Other: No Whaley's sign Palpation (GI): Soft to palpation, not firm, nontender and no guarding Objective Data Active Medications Acetaminophen (Acetaminophen 325 Mg Tablet) 650 mg PO Q6H PRN PRN Reason: Pain, Mild 1-3,fever,headache Albuterol Sulfate (Albuterol Sulfate 90 Mcg 8 Gm Inhaler) 2 puff INHALE Q6H PRN PRN Reason: shortness of breath or wheezing Aspirin (Aspirin Enteric Coated 81 Mg Tablet.Dr) 81 mg PO DAILY [facility] Last Admin: 01/20/25 18:11 Dose: 81 mg Documented By: ARISTIDES Atorvastatin Calcium (Atorvastatin Calcium 40 Mg Tablet) 40 mg PO DAILY [facility] Calcium Carbonate (Calcium Carbonate 750 Mg Tab.Chew) 750 mg PO Q4H PRN PRN Reason: Heartburn Ceftriaxone Sodium (Ceftriaxone Sodium 1 Gm Vial) 1 gm IVPUSH Q24H [facility] Last Admin: 01/20/25 16:09 Dose: 1 gm Documented By: ARISTIDES Dextrose (Dextrose 50 % 25 Gm/50 Ml Syringe) 25 gm IVPUSH Q15M PRN; Protocol PRN Reason: per Hypoglycemia Standing Ord. Enoxaparin Sodium (Enoxaparin Sodium 40 Mg/0.4 Ml Syringe) 40 mg SUBCUT Q24H [facility] Last Admin: 01/20/25 16:20 Dose: 40 mg Documented By: ARISTIDES Fluticasone/Vilanterol (Fluticasone/Vilanterol 100/25 Blst.W.Dev) 1 puff INHALE RDAILY [facility] Furosemide (Furosemide 40 Mg/4 Ml Vial) 40 mg IVPUSH BID@0900,1800 [facility]; Protocol Last Admin: 01/20/25 18:20 Dose: 40 mg Documented By: ARISTIDES Glucose (Glucose Gel 15 Gm Gel..Gram.) 15 gm PO Q15M PRN; Protocol PRN Reason: per Hypoglycemia Standing Ord. Metronidazole (Flagyl) 500 mg in 100 mls @ 100 mls/hr IV Q6H [facility] Last Infusion: 01/21/25 04:31 Dose: Infused Documented By: ИВАН Insulin Human Lispro (Insulin Lispro 100 Unit/Ml 3 Ml Vial) 0 unit SUBCUT QIDACHS [facility]; Protocol Last Admin: 01/20/25 20:43 Dose: 4 unit Documented By: ИВАН Magnesium Hydroxide (Milk Of Magnesia 30 Ml Oral.Susp) 30 ml PO DAILY PRN PRN Reason: Constipation Melatonin (Melatonin 3 Mg Tablet) 6 mg PO BEDTIME PRN PRN Reason: Insomnia Metoprolol Succinate (Metoprolol Succinate Er 50 Mg Tab.Er.24h) 50 mg PO DAILY [facility]; Protocol Morphine Sulfate (Morphine Sulfate 4 Mg/Ml Cartridge) 2 mg IVPUSH Q4H PRN; Protocol PRN Reason: Pain, Severe (Pain Scale 7-10) Sodium Chloride (0.9 % Sodium Chloride Flush 3 Ml Syringe) 3 ml IVFLUSH QSHIFT [facility] Last Admin: 01/20/25 20:44 Dose: 3 ml Documented By: ИВАН Spironolactone (Spironolactone 25 Mg Tablet) 25 mg PO DAILY [facility]; Protocol Labs 01/21/25 06:16 01/21/25 06:15 Labs: Laboratory Results - last 24 hr 01/20/25 01/20/25 01/20/25 09:24 10:21 18:08 MCV MCH MCHC RDW Plt Count MPV Absolute Nucleated RBC Nucleated RBC % (auto) Anion Gap 15 Estim Creat Clear Calc 61.5 Estimated GFR 50 POC Glucose 306 H Random Glucose 151 H Calcium 9.6 Magnesium 2.1 Total Bilirubin 0.6 Direct Bilirubin AST 126 H ALT 113 H Alkaline Phosphatase 251 H B-Natriuretic Peptide 2398 H Total Protein 7.5 Albumin 3.7 Urine Opiates Screen Ur Buprenorphine Scrn Ur Oxycodone Screen Urine Methadone Screen Urine Fentanyl Screen Ur Barbiturates Screen Ur Phencyclidine Scrn Ur Amphetamines Screen U Benzodiazepines Scrn Urine Cocaine Screen U Marijuana (THC) Screen Influenza Type A (PCR) NEGATIVE Influenza Type B (PCR) NEGATIVE RSV RNA Qual (PCR) NEGATIVE SARS-CoV-2 RNA (RT-PCR) NEGATIVE 01/20/25 01/20/25 01/21/25 20:15 22:00 06:15 MCV MCH MCHC RDW Plt Count MPV Absolute Nucleated RBC Nucleated RBC % (auto) Anion Gap 14 Estim Creat Clear Calc 65.6 Estimated GFR > 60 POC Glucose 249 H Random Glucose 196 H Calcium 9.2 Magnesium Total Bilirubin 0.4 Direct Bilirubin 0.2 AST 75 H ALT 96 H Alkaline Phosphatase 203 H B-Natriuretic Peptide 2996 H Total Protein 7.0 Albumin 3.5 Urine Opiates Screen Not Detected Ur Buprenorphine Scrn Not Detected Ur Oxycodone Screen Not Detected Urine Methadone Screen Not Detected Urine Fentanyl Screen Not Detected Ur Barbiturates Screen Not Detected Ur Phencyclidine Scrn Not Detected Ur Amphetamines Screen Not Detected U Benzodiazepines Scrn Not Detected Urine Cocaine Screen POSITIVE H U Marijuana (THC) Screen Not Detected Influenza Type A (PCR) Influenza Type B (PCR) RSV RNA Qual (PCR) SARS-CoV-2 RNA (RT-PCR) 01/21/25 01/21/25 06:16 07:14 MCV 93.7 MCH 30.7 MCHC 32.7 RDW 14.2 Plt Count 244 MPV 10.2 Absolute Nucleated RBC 0.000 Nucleated RBC % (auto) 0.0 Anion Gap Estim Creat Clear Calc Estimated GFR POC Glucose 172 H Random Glucose Calcium Magnesium Total Bilirubin Direct Bilirubin AST ALT Alkaline Phosphatase B-Natriuretic Peptide Total Protein Albumin Urine Opiates Screen Ur Buprenorphine Scrn Ur Oxycodone Screen Urine Methadone Screen Urine Fentanyl Screen Ur Barbiturates Screen Ur Phencyclidine Scrn Ur Amphetamines Screen U Benzodiazepines Scrn Urine Cocaine Screen U Marijuana (THC) Screen Influenza Type A (PCR) Influenza Type B (PCR) RSV RNA Qual (PCR) SARS-CoV-2 RNA (RT-PCR) Procedures Date of Service Date of Service: 01/21/25 Progress Note: A&P Assessment and plan (1) Chronic HFrEF (heart failure with reduced ejection fraction): Status: Acute Assessment and Plan: Ultrasound findings on the gallbladder may be secondary to his CHF No gallstones Currently denies abdominal pain, not tender Abdomen is soft and benign Treat for CHF Okay to start on clear liquids and slowly advance if he continues to do well No leukocytosis Time Spent With Patient Time: Total time managing care of this patient today ____ minutes. Quality Stroke Does the patient have a stroke diagnosis?: No VTE Prior VTE?: No VTE Risk Level:: Medical - moderate - high VTE Device Contraindication: N/A - Device Ordered VTE Drug Contraindication: N/A - Med Ordered
[2025-01-21] MEDS: 0.9 % Sodium Chloride Flush 3 ML SYRINGE IVFLUSH ×2 (10:40→15:24)
[2025-01-21 11:07] VITALS: BP 109/67; PULSE 78; RESP 18; TEMP 37.2; O2SAT 93
--- NOTE | 2025-01-21 11:09 | MHC.CM.PN ---
EMR REVIEWED, PT W/CHF AND ACUTE CHOLECYSTITIS, CM MET W/PT AND PT INSISTING HE WILL LEAVE TODAY EVEN THOUGH HE HAS HAD MULTIPLE RECENT ADMISSIONS, PT REPORTS HE HAS TO LEAVE BECAUSE HE HAS TO WORK TOMORROW. PT LIVES W/DTR [place], IS FULLY INDEP W/CARE, DENIES USE OF DME/OUTPT SERVICES. GOAL IS DC [place]. PT VERIFIES PCP/HCP ON FILE ARE CORRECT.
[2025-01-21 11:25] LABS: Glucose, Whole Blood 248 mg/dL (60-115)
--- NOTE | 2025-01-21 15:12 | HO.PM.IMPN ---
Subjective Subjective Date of Service: 01/21/25 Interval History: Patient seen this morning. No new complaints or issues today. Reports he left hospital yesterday, met up with friends; drank EtOH and consumed cocaine/marijuana. Reports he experienced shortness of breath afterwards, and represented to the ED. He denies any current red flag symptoms or complaints. He is requesting to go home today - informed the patient that it would be unsafe to leave the hospital given his clinical condition, and would constitute an AMA discharge. Patient agreeable to stay for now. Communication with general surgery; unlikely cholecytitis active. Can resume diet. Review of Systems Review of Systems: Yes all other systems are reviewed and are negative Physical Exam Exam: Exam: General: A&O x3, oriented to time place person and situtaion, comfortable, no pain Cardiac: S1, S2 auscultated with no S3/4, no MRG. Well perfused. Respiratory: No respiratory distress. On NC 2L. Bibasilar crackles auscultated, with wheezing in the mid zones auscultated. GI/ : No abdominal pain on palpation, no masses or distentions. MSK: Normal ambulation without pain at bony prominences or musculature Neurological: Normal neurological examination on overview, without obvious CN II-XII abnormalities. Vital Signs: Vital Signs: Last Vital Signs Temp 98.9 F 01/21/25 11:07 Pulse 78 01/21/25 11:07 Resp 18 01/21/25 11:07 BP 109/67 01/21/25 11:07 Pulse Ox 93 01/21/25 11:07 O2 Del Method Nasal Cannula 01/21/25 11:07 O2 Flow Rate 3 01/21/25 11:07 BMI result Body Mass Index 26.6 Objective Data Active Medications Acetaminophen (Acetaminophen 325 Mg Tablet) 650 mg PO Q6H PRN PRN Reason: Pain, Mild 1-3,fever,headache Albuterol Sulfate (Albuterol Sulfate 90 Mcg 8 Gm Inhaler) 2 puff INHALE Q6H PRN PRN Reason: shortness of breath or wheezing Aspirin (Aspirin Enteric Coated 81 Mg Tablet.) 81 mg PO DAILY [facility] Last Admin: 01/21/25 09:40 Dose: 81 mg Documented By: CAROLINE Atorvastatin Calcium (Atorvastatin Calcium 40 Mg Tablet) 40 mg PO DAILY [facility] Last Admin: 01/21/25 09:44 Dose: 40 mg Documented By: CAROLINE Calcium Carbonate (Calcium Carbonate 750 Mg Tab.Chew) 750 mg PO Q4H PRN PRN Reason: Heartburn Ceftriaxone Sodium (Ceftriaxone Sodium 1 Gm Vial) 1 gm IVPUSH Q24H [facility] Last Admin: 01/20/25 16:09 Dose: 1 gm Documented By: ARISTIDES Dextrose (Dextrose 50 % 25 Gm/50 Ml Syringe) 25 gm IVPUSH Q15M PRN; Protocol PRN Reason: per Hypoglycemia Standing Ord. Enoxaparin Sodium (Enoxaparin Sodium 40 Mg/0.4 Ml Syringe) 40 mg SUBCUT Q24H [facility] Last Admin: 01/20/25 16:20 Dose: 40 mg Documented By: ARISTIDES Fluticasone/Vilanterol (Fluticasone/Vilanterol 100/25 Blst.W.Dev) 1 puff INHALE RDAILY [facility] Furosemide (Furosemide 40 Mg/4 Ml Vial) 40 mg IVPUSH BID@0900,1800 [facility]; Protocol Last Admin: 01/21/25 09:40 Dose: 40 mg Documented By: CAROLINE Glucose (Glucose Gel 15 Gm Gel..Gram.) 15 gm PO Q15M PRN; Protocol PRN Reason: per Hypoglycemia Standing Ord. Metronidazole (Flagyl) 500 mg in 100 mls @ 100 mls/hr IV Q6H [facility] Last Infusion: 01/21/25 11:39 Dose: Infused Documented By: CAROLINE Insulin Human Lispro (Insulin Lispro 100 Unit/Ml 3 Ml Vial) 0 unit SUBCUT QIDACHS [facility]; Protocol Last Admin: 01/21/25 12:52 Dose: 4 unit Documented By: CAROLINE Magnesium Hydroxide (Milk Of Magnesia 30 Ml Oral.Susp) 30 ml PO DAILY PRN PRN Reason: Constipation Melatonin (Melatonin 3 Mg Tablet) 6 mg PO BEDTIME PRN PRN Reason: Insomnia Metoprolol Succinate (Metoprolol Succinate Er 50 Mg Tab.Er.24h) 50 mg PO DAILY [facility]; Protocol Last Admin: 01/21/25 09:43 Dose: 50 mg Documented By: CAROLINE Morphine Sulfate (Morphine Sulfate 4 Mg/Ml Cartridge) 2 mg IVPUSH Q4H PRN; Protocol PRN Reason: Pain, Severe (Pain Scale 7-10) Sodium Chloride (0.9 % Sodium Chloride Flush 3 Ml Syringe) 3 ml IVFLUSH QSHIFT [facility] Last Admin: 01/21/25 10:40 Dose: 3 ml Documented By: CAROLINE Spironolactone (Spironolactone 25 Mg Tablet) 25 mg PO DAILY [facility]; Protocol Last Admin: 01/21/25 09:41 Dose: 25 mg Documented By: CAROLINE Labs 01/21/25 06:16 01/21/25 06:15 Labs: Laboratory Results - last 24 hr 01/20/25 01/20/25 01/20/25 10:21 18:08 20:15 MCV MCH MCHC RDW Plt Count MPV Absolute Nucleated RBC Nucleated RBC % (auto) Anion Gap Estim Creat Clear Calc Estimated GFR POC Glucose 306 H 249 H Random Glucose Calcium Magnesium 2.1 Total Bilirubin Direct Bilirubin AST ALT Alkaline Phosphatase B-Natriuretic Peptide Total Protein Albumin Urine Opiates Screen Ur Buprenorphine Scrn Ur Oxycodone Screen Urine Methadone Screen Urine Fentanyl Screen Ur Barbiturates Screen Ur Phencyclidine Scrn Ur Amphetamines Screen U Benzodiazepines Scrn Urine Cocaine Screen U Marijuana (THC) Screen 01/20/25 01/21/25 01/21/25 22:00 06:15 06:16 MCV 93.7 MCH 30.7 MCHC 32.7 RDW 14.2 Plt Count 244 MPV 10.2 Absolute Nucleated RBC 0.000 Nucleated RBC % (auto) 0.0 Anion Gap 14 Estim Creat Clear Calc 65.6 Estimated GFR > 60 POC Glucose Random Glucose 196 H Calcium 9.2 Magnesium Total Bilirubin 0.4 Direct Bilirubin 0.2 AST 75 H ALT 96 H Alkaline Phosphatase 203 H B-Natriuretic Peptide 2996 H Total Protein 7.0 Albumin 3.5 Urine Opiates Screen Not Detected Ur Buprenorphine Scrn Not Detected Ur Oxycodone Screen Not Detected Urine Methadone Screen Not Detected Urine Fentanyl Screen Not Detected Ur Barbiturates Screen Not Detected Ur Phencyclidine Scrn Not Detected Ur Amphetamines Screen Not Detected U Benzodiazepines Scrn Not Detected Urine Cocaine Screen POSITIVE H U Marijuana (THC) Screen Not Detected 01/21/25 01/21/25 07:14 11:22 MCV MCH MCHC RDW Plt Count MPV Absolute Nucleated RBC Nucleated RBC % (auto) Anion Gap Estim Creat Clear Calc Estimated GFR POC Glucose 172 H 248 H Random Glucose Calcium Magnesium Total Bilirubin Direct Bilirubin AST ALT Alkaline Phosphatase B-Natriuretic Peptide Total Protein Albumin Urine Opiates Screen Ur Buprenorphine Scrn Ur Oxycodone Screen Urine Methadone Screen Urine Fentanyl Screen Ur Barbiturates Screen Ur Phencyclidine Scrn Ur Amphetamines Screen U Benzodiazepines Scrn Urine Cocaine Screen U Marijuana (THC) Screen Assessment and Plan (1) Cocaine abuse: Status: Acute (2) Alcohol use: Status: Acute (3) Hypertension: Status: Acute (4) Acute exacerbation of congestive heart failure: Status: Acute (5) RVH (right ventricular hypertrophy): Status: Acute (6) Chronic HFrEF (heart failure with reduced ejection fraction): Status: Acute (7) NSVT (nonsustained ventricular tachycardia): Status: Acute (8) Hyperlipidemia: Status: Acute Plan 64-year-old male with history of 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 Lasix Follow I's and O's, daily weight Trend BNP, renal function, electrolytes Continue supplemental oxygen, wean as tolerated continue baseline metoprolol and spironolactone Acute cholecystitis Seen by General surgery, plan for conservative management with antibiotics normal white count, no fever; no sepsis IV ceftriaxone, Flagyl started. Cleared by surgery for intervention - advanced patient to cardiac diet. EtOH abuse low risk for withdrawal given recent hospitalization follow CIWA Active cocaine abuse check tox screen [id number] type 2 diabetes Sliding scale insulin continue Jardiance POC glucose Hold metformin COPD No exacerbation continue baseline inhalers Hypertension Continue metoprolol, spironolactone Hyperlipidemia Statin QU[employer] FULL CODE VTE PROPHYLAXIS: enoxaparin 40mg oD SQ DIET: Cardiac, low sodium Total time managing care of this patient today: 35 minutes. Quality Stroke Does the patient have a stroke diagnosis?: No VTE Prior VTE?: No VTE Risk Level:: Medical - moderate - high VTE Device Contraindication: N/A - Device Ordered VTE Drug Contraindication: N/A - Med Ordered
[2025-01-21 15:15] VITALS: BP 118/65; PULSE 96; RESP 18; TEMP 36.5; O2SAT 94
[2025-01-21 15:21] LABS: Glucose, Whole Blood 100 mg/dL (60-115)
[2025-01-21 19:13] VITALS: BP 98/65; PULSE 63; RESP 18; TEMP 36.1; O2SAT 97
--- NOTE | 2025-01-21 19:27 | PC.NURSE ---
urine positive for cocaine, pt declined any addiction medicine consultation
--- NOTE | 2025-01-21 19:29 | PC.NURSE ---
run of vtach 10 beats , pt resting , denied chest pain , no dizziness , no respiratory distress, BP 98/65, Dr Lilly notified , Magnesium IV ordered , next shift RN notified about the new order
[2025-01-21 20:28] LABS: Glucose, Whole Blood 246 mg/dL (60-115)
[2025-01-21] MEDS: Magnesium Sulfate/H2O 2 GM/50 ML PIGGYBACK IV (20:42)
[2025-01-21 23:16] VITALS: BP 105/68; PULSE 67; RESP 20; TEMP 36.3; O2SAT 97
[2025-01-22] VITALS (10 sets, daily range): BP systolic 107–135; BP diastolic 68–94; PULSE 65–95; RESP 18–20; TEMP 36–37.4; O2SAT 91–100
[2025-01-22] MEDS: metroNIDAZOLE/NS 500 MG/100 ML PIGGYBACK 100 MG IV ×2 (02:56→09:24)
--- NOTE | 2025-01-22 06:20 | PC.NURSE ---
Care assumed at 1900. Pt found multiple times during shift without nasal cannula on. Pt hypoxic in the 80s when found. Pt educated on the importance of keeping oxygen on. Pt resting comfortably in bed. Respirations even and unlabored. KRUEGER. Walks to bathroom independently with a steady gait. Pt refused bed alarms. Call newell within reach, bed in lowest position.
--- NOTE | 2025-01-22 07:00 | CA_ITS ---
Transthoracic Echocardiogram Patient (Last, First, Middle): Jerry Sumner D Gender: Male Date of : 1960 Age: 64 Procedure Date: 01/22/2025 Procedure Type: Transthoracic Echocardiogram Location: [facility] [place] Height: 180.34 cm Weight: 86.18 kg BSA: 2.06 m2 Heart Rate: 94 bpm BP: 126 / 68 mmHg Tier And Detonator: PAUL Referring MD: Sabi Ayaal MD Symptoms: new NSVT - CHFrEF 15-20%, cocaine abuse Study Quality: Adequate w/Contrast ECG Rhythm: Sinus w/PACs Conclusions: - Severely increased left ventricular cavity size. There is normal left ventricular wall thickness. The left ventricular systolic function is severely decreased. The visually estimated ejection fraction is between 15-20%. - 1.3 x 1.3 cm apical thrombus present. - There is mild dilatation of the ascending aorta measuring 4.00 cm. Findings Procedure Information Contrast agent, definity, is being given per protocol without apparent complications. Left Ventricle Severely increased left ventricular cavity size. There is normal left ventricular wall thickness. The left ventricular systolic function is severely decreased. The visually estimated ejection fraction is between 15 20%. There is severe global hypokinesis. There is paradoxical septal motion consistent with a left bundle branch block. Diastolic function is indeterminate on the basis of available data. 1.3 x 1.3 cm apical thrombus present. Right Ventricle Moderately increased right ventricular cavity size. There is mildly decreased right ventricular systolic function. Atria The left atrium is likely dilated. The right atrium is severely dilated. Aortic Valve Normal aortic valve structure and function. There is no aortic valve stenosis. There is trace (trivial) aortic valve regurgitation. Mitral Valve The mitral valve appears normal. There is no mitral valve regurgitation. There is no mitral valve stenosis. Pulmonic Valve The pulmonic valve is normal. There is trace pulmonic valve regurgitation. Tricuspid Valve Normal tricuspid valve structure. There is mild tricuspid valve regurgitation. The right ventricular systolic pressure is 37 mmHg. Significantly elevated right atrial pressure. There is no evidence of pulmonary hypertension. Great Vessels There is mild dilatation of the ascending aorta measuring 4.00 cm. Venous The inferior vena cava is dilated and collapses less than 50% with inspiration. Pericardium/Pleural There is no evidence of pericardial effusion. Prior Study Comparison Significant changes compared to prior study dated: 08/24/2024. Apical thrombus present. Measurements 2D Linear Measurements IVSd: 0.80 0.6-0.9/0.6-1.0 cm LVIDd: 7.31 3.9-5.3/4.2-5.9 cm LVIDd Index: 3.55 2.4-3.2/2.2-3.1 cm/m2 LVIDs: 5.78 2.0-3.6 cm LVPWd: 1.05 0.7-1.1 cm LA Diam: 3.90 2.7-3.8/3.0-4.0 cm LAIDs Index: 1.89 1.5-2.3 cm/m2 LV Mass: 393.08 67-162/88-224 g LV Mass Index: 190.81 43-95/49-115 g/m2 LVOT Diam: 2.30 3.0+(-)1.3 cm 2D Systolic Function EF 4C: 40.50 >55% EF 2C: 34.10 >55% Mitral Valve MV Pk E: 0.98 MV PK A: 0.70 MV Decel Time: 235.00 E/A: 1.40 E'Lateral: 5.66 E'Medial: 3.88 E/E' Med: 25.30 E/E' Lat: 17.30 PHT: 69.00 MVA PHT: 3.19 Decel Telfair: 4.18 Aortic Valve AoV Pk Kelvin: 1.41 AoV Mn Kelvin: 1.00 AoV VTI: 0.24 AoV Pk Grad: 8.00 Aov Mn Grad: 5.00 ROSE Cont.VTI: 2.56 LVOT LVOT Pk Kelvin: 0.87 LVOT Mn Kelvin: 0.63 LVOT VTI: 0.15 LVOT Pk Grad: 3.00 LVOT Mn Grad: 2.00 LVOT Diam: 2.30 LVOT Area: 4.15 Diastolic Function MV Pk E: 0.98 MV Pk A: 0.70 E/A: 1.40 E'Medial: 3.88 E/E' Med: 25.30 E' Laterial: 5.66 E/E' Lat: 17.30 Right Ventricle TAPSE (mm): 18.30 TVS' Kelvin: 8.23 Tricuspid Valve TR Pk Kelvin: 2.36 TR Pk Grad: 22.00 RA Press: 15.00 RVSP: 37.00 Great Vessels Aorta Sinus of Valsalva: 3.70 2.0-3.5 cm Ao Asc: 4.00 2.1-3.4 cm Pulmonary Valve PV Pk Kelvin: 0.96 Peak PV Grad: 4.00 Updated in Other Vendor System with Status of Final Jose Chambers MD electronically signed on 01/22/2025 2:57:37 PM with status of Final
[2025-01-22 07:35] LABS: Glucose, Whole Blood 126 mg/dL (60-115)
[2025-01-22] MEDS: Fluticasone/Vilanterol 100/25 BLST.W.DEV 1 PUFF INHALE (07:52)
[2025-01-22 07:53] LABS: Albumin Level 3.7 g/dL (3.5-5.0); Anion Gap 14 (12-20); Blood Urea Nitrogen 43 mg/dL (9-16); Calcium 9.5 mg/dL (8.4-10.2); Carbon Dioxide 39 mmol/L (22-29); Chloride 96 mmol/L (96-108); Creatinine Clr Calc Pharmacy 70.9; Estimated Glomerular Filt Rate > 60; Magnesium 2.3 mg/dL (1.6-2.6); Potassium 4.5 mmol/L (3.3-5.1); Sodium 144 mmol/L (135-145)
[2025-01-22 08:01] LABS: B Type Natriuretic Peptide 1331 pg/mL (<100)
--- NOTE | 2025-01-22 08:02 | PM.PNGS ---
Subjective Subjective Date of Service: 01/22/25 Interval history: Says he feels well overall Denies any abdominal pain Says his breathing is much better No events reported Physical Exam Vital Signs: Vital Signs: Last Vital Signs Temp 97.3 F 01/22/25 07:15 Pulse 71 01/22/25 07:55 Resp 19 01/22/25 07:55 BP 126/68 01/22/25 07:15 Pulse Ox 97 01/22/25 07:15 O2 Del Method Nasal Cannula 01/22/25 07:15 O2 Flow Rate 3 01/22/25 03:19 BMI result Body Mass Index 26.6 Const: General: comfortable and no acute distress Resp: Effort & Inspection: normal respiratory effort Cardio: Rate: regular rate GI: Palpation (GI): Soft to palpation, not firm, nontender and no guarding Objective Data Active Medications Acetaminophen (Acetaminophen 325 Mg Tablet) 650 mg PO Q6H PRN PRN Reason: Pain, Mild 1-3,fever,headache Albuterol Sulfate (Albuterol Sulfate 90 Mcg 8 Gm Inhaler) 2 puff INHALE Q6H PRN PRN Reason: shortness of breath or wheezing Aspirin (Aspirin Enteric Coated 81 Mg Tablet.Dr) 81 mg PO DAILY [facility]S [facility]CLUDE 234 BEDS AT THE [facility] Last Admin: 01/21/25 09:40 Dose: 81 mg Documented By: CAROLINE Atorvastatin Calcium (Atorvastatin Calcium 40 Mg Tablet) 40 mg PO DAILY COUNTS INCLUDE 234 BEDS AT THE [facility] Last Admin: 01/21/25 09:44 Dose: 40 mg Documented By: CAROLINE Calcium Carbonate (Calcium Carbonate 750 Mg Tab.Chew) 750 mg PO Q4H PRN PRN Reason: Heartburn Ceftriaxone Sodium (Ceftriaxone Sodium 1 Gm Vial) 1 gm IVPUSH Q24H COUNTS INCLUDE 234 BEDS AT THE [facility] Last Admin: 01/21/25 15:24 Dose: 1 gm Documented By: CAROLINE Dextrose (Dextrose 50 % 25 Gm/50 Ml Syringe) 25 gm IVPUSH Q15M PRN; Protocol PRN Reason: per Hypoglycemia Standing Ord. Enoxaparin Sodium (Enoxaparin Sodium 40 Mg/0.4 Ml Syringe) 40 mg SUBCUT Q24H COUNTS INCLUDE 234 BEDS AT THE [facility] Last Admin: 01/21/25 15:56 Dose: 40 mg Documented By: CAROLINE Fluticasone/Vilanterol (Fluticasone/Vilanterol 100/25 Blst.W.Dev) 1 puff INHALE RDAILY COUNTS INCLUDE 234 BEDS AT THE [facility] Last Admin: 01/22/25 07:52 Dose: 1 puff Documented By: BECKY Furosemide (Furosemide 40 Mg/4 Ml Vial) 40 mg IVPUSH BID@0900,1800 COUNTS INCLUDE 234 BEDS AT THE [facility]; Protocol Last Admin: 01/21/25 18:04 Dose: 40 mg Documented By: CAROLINE Glucose (Glucose Gel 15 Gm Gel..Gram.) 15 gm PO Q15M PRN; Protocol PRN Reason: per Hypoglycemia Standing Ord. Metronidazole (Flagyl) 500 mg in 100 mls @ 100 mls/hr IV Q6H COUNTS INCLUDE 234 BEDS AT THE [facility] Last Infusion: 01/22/25 04:02 Dose: Infused Documented By: TY Insulin Human Lispro (Insulin Lispro 100 Unit/Ml 3 Ml Vial) 0 unit SUBCUT QIDACHS COUNTS INCLUDE 234 BEDS AT THE [facility]; Protocol Last Admin: 01/22/25 07:40 Dose: Not Given Documented By: SEA Non-Admin Reason: No Insulin Coverage Magnesium Hydroxide (Milk Of Magnesia 30 Ml Oral.Susp) 30 ml PO DAILY PRN PRN Reason: Constipation Magnesium Oxide (Magnesium Oxide 400 Mg Tablet) 400 mg PO DAILY COUNTS INCLUDE 234 BEDS AT THE [facility] Last Admin: 01/21/25 15:47 Dose: 400 mg Documented By: CAROLINE Melatonin (Melatonin 3 Mg Tablet) 6 mg PO BEDTIME PRN PRN Reason: Insomnia Metoprolol Succinate (Metoprolol Succinate Er 50 Mg Tab.Er.24h) 50 mg PO DAILY COUNTS INCLUDE 234 BEDS AT THE [facility]; Protocol Last Admin: 01/21/25 09:43 Dose: 50 mg Documented By: CAROLINE Morphine Sulfate (Morphine Sulfate 4 Mg/Ml Cartridge) 2 mg IVPUSH Q4H PRN; Protocol PRN Reason: Pain, Severe (Pain Scale 7-10) Sodium Chloride (0.9 % Sodium Chloride Flush 3 Ml Syringe) 3 ml IVFLUSH QSHIFT COUNTS INCLUDE 234 BEDS AT THE [facility] Last Admin: 01/22/25 00:00 Dose: 3 ml Documented By: TY Spironolactone (Spironolactone 25 Mg Tablet) 25 mg PO DAILY COUNTS INCLUDE 234 BEDS AT THE [facility]; Protocol Last Admin: 01/21/25 09:41 Dose: 25 mg Documented By: CAROLINE Labs 01/21/25 06:16 01/22/25 07:00 Labs: Laboratory Results - last 24 hr 08/04/0701/21/25 01/21/25 11:22 15:18 20:20 Hold Purple Top Anion Gap Estim Creat Clear Calc Estimated GFR POC Glucose 248 H 100 246 H Random Glucose Calcium Magnesium B-Natriuretic Peptide Albumin 01/22/25 01/22/25 07:00 07:30 Hold Purple Top SEE NOTE Anion Gap 14 Estim Creat Clear Calc 70.9 Estimated GFR > 60 POC Glucose 126 H Random Glucose 130 H Calcium 9.5 Magnesium 2.3 B-Natriuretic Peptide 1331 H Albumin 3.7 Procedures Date of Service Date of Service: 01/22/25 Progress Note: A&P Assessment and plan (1) Acute exacerbation of congestive heart failure: Status: Acute Assessment and Plan: Findings on the gallbladder on his CAT scan please secondary to CHF Clinically no cholecystitis No tenderness or Whaley's sign Diet as tolerated Management as per the hospitalist service in view of his multiple medical problems including CHF Kindly call us as needed if there is any other issue for surgery Time Spent With Patient Time: Total time managing care of this patient today ____ minutes. Quality Stroke Does the patient have a stroke diagnosis?: No VTE Prior VTE?: No VTE Risk Level:: Medical - moderate - high VTE Device Contraindication: N/A - Device Ordered VTE Drug Contraindication: N/A - Med Ordered
[2025-01-22] MEDS: Aspirin Enteric Coated 81 MG TABLET.DR PO (09:23)
[2025-01-22] MEDS: Metoprolol Succinate ER 50 MG TAB.ER.24H PO (09:23)
[2025-01-22] MEDS: Furosemide 40 MG/4 ML VIAL IVPUSH ×2 (09:23→18:35)
[2025-01-22] MEDS: 0.9 % Sodium Chloride Flush 3 ML SYRINGE IVFLUSH ×4 (09:24→21:39)
[2025-01-22 11:15] LABS: Glucose, Whole Blood 169 mg/dL (60-115)
--- NOTE | 2025-01-22 12:31 | MHC.RECOVRN ---
Attempted to meet with pt for a recovery assessment. Pt declined to meet with t/w. Stated he is all good . Pt is already on methadone and connected to [facility] clinic. Pt appeared to be comfortable on approach, with no signs of physical distress. ACS team available if any questions or concerns arise.
--- NOTE | 2025-01-22 13:02 | P.EN_ITS ---
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 No further follow up indicated at this time. Time Spent With Patient Time: Total time managing care of this patient today ____ minutes.
--- NOTE | 2025-01-22 14:02 | P.PNIM_ITS ---
Subjective Subjective Date of Service: 01/22/25 Interval History: No sob being having frequent ventriular arrthmia K and mag normal Physical Exam 2 Vital Signs: Vital Signs: Last Vital Signs Temp 97.3 F 01/22/25 11:07 Pulse 65 01/22/25 11:07 Resp 18 01/22/25 11:07 BP 113/80 01/22/25 11:07 Pulse Ox 94 01/22/25 11:07 O2 Del Method Room Air 01/22/25 11:07 O2 Flow Rate 3 01/22/25 03:19 BMI result Body Mass Index 26.6 Objective Data Active Medications Acetaminophen (Acetaminophen 325 Mg Tablet) 650 mg PO Q6H PRN PRN Reason: Pain, Mild 1-3,fever,headache Albuterol Sulfate (Albuterol Sulfate 90 Mcg 8 Gm Inhaler) 2 puff INHALE Q6H PRN PRN Reason: shortness of breath or wheezing Aspirin (Aspirin Enteric Coated 81 Mg Tablet.) 81 mg PO DAILY [facility] Last Admin: 01/22/25 09:23 Dose: 81 mg Documented By: SEA Atorvastatin Calcium (Atorvastatin Calcium 40 Mg Tablet) 40 mg PO DAILY [facility] Last Admin: 01/22/25 09:23 Dose: 40 mg Documented By: SEA Calcium Carbonate (Calcium Carbonate 750 Mg Tab.Chew) 750 mg PO Q4H PRN PRN Reason: Heartburn Ceftriaxone Sodium (Ceftriaxone Sodium 1 Gm Vial) 1 gm IVPUSH Q24H [facility] Last Admin: 01/21/25 15:24 Dose: 1 gm Documented By: CAROLINE Dextrose (Dextrose 50 % 25 Gm/50 Ml Syringe) 25 gm IVPUSH Q15M PRN; Protocol PRN Reason: per Hypoglycemia Standing Ord. Enoxaparin Sodium (Enoxaparin Sodium 40 Mg/0.4 Ml Syringe) 40 mg SUBCUT Q24H [facility] Last Admin: 01/21/25 15:56 Dose: 40 mg Documented By: CAROLINE Fluticasone/Vilanterol (Fluticasone/Vilanterol 100/25 Blst.W.Dev) 1 puff INHALE RDAILY [facility] Last Admin: 01/22/25 07:52 Dose: 1 puff Documented By: BECKY Furosemide (Furosemide 40 Mg/4 Ml Vial) 40 mg IVPUSH BID@0900,1800 [facility]; Protocol Last Admin: 01/22/25 09:23 Dose: 40 mg Documented By: SEA Glucose (Glucose Gel 15 Gm Gel..Gram.) 15 gm PO Q15M PRN; Protocol PRN Reason: per Hypoglycemia Standing Ord. Metronidazole (Flagyl) 500 mg in 100 mls @ 100 mls/hr IV Q6H [facility] Last Infusion: 01/22/25 10:30 Dose: Infused Documented By: SEA Insulin Human Lispro (Insulin Lispro 100 Unit/Ml 3 Ml Vial) 0 unit SUBCUT QIDACHS [facility]; Protocol Last Admin: 01/22/25 11:31 Dose: 2 unit Documented By: SEA Magnesium Hydroxide (Milk Of Magnesia 30 Ml Oral.Susp) 30 ml PO DAILY PRN PRN Reason: Constipation Magnesium Oxide (Magnesium Oxide 400 Mg Tablet) 400 mg PO DAILY [facility] Last Admin: 01/22/25 09:23 Dose: 400 mg Documented By: SEA Melatonin (Melatonin 3 Mg Tablet) 6 mg PO BEDTIME PRN PRN Reason: Insomnia Metoprolol Succinate (Metoprolol Succinate Er 50 Mg Tab.Er.24h) 50 mg PO DAILY [facility]; Protocol Last Admin: 01/22/25 09:23 Dose: 50 mg Documented By: SEA Morphine Sulfate (Morphine Sulfate 4 Mg/Ml Cartridge) 2 mg IVPUSH Q4H PRN; Protocol PRN Reason: Pain, Severe (Pain Scale 7-10) Sodium Chloride (0.9 % Sodium Chloride Flush 3 Ml Syringe) 3 ml IVFLUSH QSHIFT [facility] Last Admin: 01/22/25 09:24 Dose: 3 ml Documented By: SEA Spironolactone (Spironolactone 25 Mg Tablet) 25 mg PO DAILY [facility]; Protocol Last Admin: 01/22/25 09:23 Dose: 25 mg Documented By: SEA Labs 01/21/25 06:16 01/22/25 07:00 Labs: Laboratory Results - last 24 hr 01/21/25 01/21/25 01/22/25 15:18 20:20 07:00 Hold Purple Top SEE NOTE Anion Gap 14 Estim Creat Clear Calc 70.9 Estimated GFR > 60 POC Glucose 100 246 H Random Glucose 130 H Calcium 9.5 Magnesium 2.3 B-Natriuretic Peptide 1331 H Albumin 3.7 01/22/25 01/22/25 07:30 11:12 Hold Purple Top Anion Gap Estim Creat Clear Calc Estimated GFR POC Glucose 126 H 169 H Random Glucose Calcium Magnesium B-Natriuretic Peptide Albumin Assessment and Plan (1) Cocaine abuse: Status: Acute (2) Alcohol use: Status: Acute (3) Hypertension: Status: Acute (4) Acute exacerbation of congestive heart failure: Status: Acute (5) RVH (right ventricular hypertrophy): Status: Acute (6) Chronic HFrEF (heart failure with reduced ejection fraction): Status: Acute (7) NSVT (nonsustained ventricular tachycardia): Status: Acute (8) Hyperlipidemia: Status: Acute Plan 64-year-old male with history of 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%, alcohol use disorder, history of NSVT, diabetes, hypertension, hyperlipidemia, just discharged from the hospital yesterday after being treated for acute CHF who presents to the emergency department today with shortness of breath found to have recurrent CHF and acute cholecystitis Acute respiratory failure with hypoxia Acute on chronic CHFrEF 15-20% H/O combined systolic and diastolic CHF; most recent echo with EF 15-20% with grade II diastolic dysfunction BNP back up to 2398, chest x-ray with pulmonary congestion Received 40 mg IV Lasix, will change to PO today Follow I's and O's, daily weight Trend BNP, renal function, electrolytes Continue supplemental oxygen, wean as tolerated continue baseline metoprolol and spironolactone Acute cholecystitis, seen by surgery they think finding due to heart failure Ventricular arrythmias's Continue Toprol and will discuss with cardiology EtOH abuse low risk for withdrawal given recent hospitalization follow CIWA Active cocaine abuse check tox screen Oyn-scckkfe-ephwvfpby type 2 diabetes Sliding scale insulin continue Jardiance POC glucose Hold metformin COPD No exacerbation continue baseline inhalers Hypertension Continue metoprolol, spironolactone Hyperlipidemia Statin QUALITY [employer] FULL CODE VTE PROPHYLAXIS: enoxaparin 40mg oD SQ DIET: Cardiac, low sodium Total time managing care of this patient today: 35 minutes. Quality Stroke Does the patient have a stroke diagnosis?: No VTE Prior VTE?: No VTE Risk Level:: Medical - moderate - high VTE Device Contraindication: N/A - Device Ordered VTE Drug Contraindication: N/A - Med Ordered
--- NOTE | 2025-01-22 14:19 | MHC.CM.PN ---
Per rounds, pt. to be seen by cardiology, may DC later today. CM to follow for DC needs.
[2025-01-22 16:56] LABS: Glucose, Whole Blood 254 mg/dL (60-115)
[2025-01-22 20:43] LABS: Glucose, Whole Blood 135 mg/dL (60-115)
[2025-01-23 03:17] VITALS: BP 109/83; PULSE 89; RESP 18; TEMP 36.4; O2SAT 94
[2025-01-23 06:40] LABS: Hematocrit 47.1 % (42.0-52.0); Hemoglobin 15.3 g/dl (14.0-18.0); Mean Corpuscular HGB Conc 32.5 g/dl (31.0-36.0); Mean Corpuscular Hemoglobin 31.3 pg (27.0-33.0); Mean Corpuscular Volume 96.3 fL (80.0-98.0); NRBC Abs Auto 0.000 X10*3/uL (0.0-0.012); NRBC Pct Auto 0.0 /100WBC (0.0-0.2); Platelet Count 241 X10*3/uL (160-400); Red Blood Count 4.89 X10*6/uL (4.60-5.80); White Blood Count 6.0 X10*3/uL (4.8-10.8)
[2025-01-23 07:31] LABS: Anion Gap 12 (12-20); Blood Urea Nitrogen 34 mg/dL (9-16); Calcium 9.6 mg/dL (8.4-10.2); Carbon Dioxide 41 mmol/L (22-29); Chloride 95 mmol/L (96-108); Creatinine Clr Calc Pharmacy 69.1; Estimated Glomerular Filt Rate > 60; Potassium 4.2 mmol/L (3.3-5.1); Sodium 144 mmol/L (135-145)
[2025-01-23 07:39] LABS: Glucose, Whole Blood 143 mg/dL (60-115)
[2025-01-23 07:46] VITALS: BP 123/83; PULSE 80; RESP 20; TEMP 37.3; O2SAT 94
[2025-01-23] MEDS: Furosemide 40 MG/4 ML VIAL IVPUSH (08:05)
[2025-01-23] MEDS: 0.9 % Sodium Chloride Flush 3 ML SYRINGE IVFLUSH (08:13)
[2025-01-23] MEDS: Fluticasone/Vilanterol 100/25 BLST.W.DEV 1 PUFF INHALE (08:15)
[2025-01-23 08:18] VITALS: PULSE 81; RESP 16; O2SAT 94
[2025-01-23] MEDS: Metoprolol Succinate ER 50 MG TAB.ER.24H PO (09:08)
[2025-01-23] MEDS: Aspirin Enteric Coated 81 MG TABLET.DR PO (09:08)
--- NOTE | 2025-01-23 11:04 | P.DS_ITS ---
DS: Providers Provider Date of Service: 01/23/25 Date of admission: 01/20/25 14:45 Date of discharge: 01/23/25 Primary care physician: Veronique Gastelum NP Consults: 01/20/25 14:02 Consult to General Surgery Routine Consulting Provider: [facility] Reason for consultation: acute cholecystitis on u/s Has provider been notified: Yes 01/21/25 18:47 Addiction Medicine Provider Routine Consulting Provider: Addiction Covering Reason for consultation: pt was tested positive for cocaine and alcohol use DS: Diagnosis Discharge Diagnosis (1) Cocaine abuse: Status: Acute (2) Alcohol use: Status: Acute (3) Hypertension: Status: Acute (4) Acute exacerbation of congestive heart failure: Status: Acute (5) RVH (right ventricular hypertrophy): Status: Acute (6) Chronic HFrEF (heart failure with reduced ejection fraction): Status: Acute (7) NSVT (nonsustained ventricular tachycardia): Status: Acute (8) Hyperlipidemia: Status: Acute DS: Summary Hospital Course Hospital Course: Admission HPI: This is a 64-year-old male with past medical history of alcohol dependence, n onischemic cardiomyopathy with EF of 15%, diabetes discharge from the hospital yesterday after being treated for acute CHF who presents to the emergency department today with shortness of breath and abdominal pain. Patient states he was feeling better when he left the hospital. When he left the hospital he went out with friends to drink. In addition to drinking beer he had homemade brownies which made him hallucinate and he thinks the brownies released with drugs. He began having abdominal pain primarily located in the right upper quadrant. He went to bed hoping he would feel better but when he woke up this morning he had persistent shortness of breath and persistent abdominal pain. He returned to the emergency room where he was found to have hypoxia, elevated BNP greater than post admission. Chest x-ray showed redemonstration of cardiomegaly and pulmonary vascular congestion. In addition his LFTs were noted to be elevated and he underwent an abdominal ultrasound which showed evidence of acute cholecystitis. Use evaluated by General surgery who felt he was not a surgical candidate and recommended conservative management with IV antibiotics. Hospital Course: 64 yo presented with shortness of breath, after being discharged from hospital on 01/20 and immediately using alcohol and cocaine with friends. He was found to have Acute respiratory failure with hypoxia- Acute on chronic CHFrEF 15-20%, and question of Acute cholecystitis, he was seen by surgery and they opined this finding is due to the heart failure, additionally pt. is not clinically symptomatic of cholecystitis, he was given antibiotics but is been discontinued, WBC is normal. For acute on chronic HFrEF, he was treated with IV lasix, and ultimately PO, supplemental oxygen titrated to room air. Offered addiction med. consult while inpatient, however he declined. Encouraged the disconinuation of cocaine and alcohol use. Stable for discharge home. He has metabolic alkalosis from lasix use and will be discharge with diamox for 3 day and repeat lab within a week. Of note Echo also showed 1.3 x 1.3 cm apical thrombus and cardiology has advisded anticoagulation and started on Eliquis Final diagnoses Acute on chronic heart failure with reduced EF Acute hypoxic respiratory failure due to above NSVTs Metabolic alkalosis Apical cardiac thrombus Time Attestation Discharge Coordination Time (in mins): 45 Quality: Safe Use of Opioids Does Pt have an Active Cancer Diagnosis on the Problem List?: No Quality: Stroke Does the patient have a stroke diagnosis?: No Physical Exam Exam: Exam: General: A&O x3, comfortable, no pain Cardiac: S1, S2 auscultated. Respiratory: No respiratory distress. On room air. On auscultation BLL fine crackles, with slight wheeze BUL. GI/ : No abdominal pain on palpation, no masses or distentions. MSK: Normal ambulation Neurological: Normal neurological exam, CN II-XII bilaterally intact. Vital Signs: Vital Signs: Last Vital Signs Temp 99.1 F 01/23/25 07:46 Pulse 81 01/23/25 08:18 Resp 16 01/23/25 08:18 BP 123/83 01/23/25 07:46 Pulse Ox 94 01/23/25 07:46 O2 Del Method Room Air 01/23/25 07:46 O2 Flow Rate 3 01/22/25 03:19 BMI result Body Mass Index 26.6 DS: Data Data Completed and Pending Labs on day of discharge: Laboratory Results - last 24 hr 01/22/25 01/22/25 01/22/25 11:12 16:40 20:36 WBC RBC Hgb Hct MCV MCH MCHC RDW Plt Count MPV Absolute Nucleated RBC Nucleated RBC % (auto) Sodium Potassium Chloride Carbon Dioxide Anion Gap BUN Creatinine Estim Creat Clear Calc Estimated GFR POC Glucose 169 H 254 H 135 H Random Glucose Calcium 01/23/25 01/23/25 05:52 07:35 WBC 6.0 RBC 4.89 Hgb 15.3 Hct 47.1 MCV 96.3 MCH 31.3 MCHC 32.5 RDW 14.5 Plt Count 241 MPV 10.2 Absolute Nucleated RBC 0.000 Nucleated RBC % (auto) 0.0 Sodium 144 Potassium 4.2 Chloride 95 L Carbon Dioxide 41 H* Anion Gap 12 BUN 34 H Creatinine 1.15 Estim Creat Clear Calc 69.1 Estimated GFR > 60 POC Glucose 143 H Random Glucose 139 H Calcium 9.6 Discharge Plan Discharge Anticipated Discharge Date/Time: 01/23/25 12:54 Patient Disposition: Home, Self-Care Discharge Diagnosis: Acute on chronic heart failure, reserved ejection fraction Referrals: Jose Chambers MD [Physician, Cardiology] - 1 Week Veronique Gastelum NP [Primary Care Provider, Internal Medicine] - 1 Week Discharge Medications: New Eliquis 5 mg Tablet 5 mg PO BID Qty: 180 0RF acetazolamide 250 mg tablet 250 mg PO BID Qty: 6 0RF Continued metoprolol succinate [Toprol XL] 50 mg tablet extended release 24 hr 50 mg PO DAILY Qty: 30 5RF spironolactone 25 mg Tablet 25 mg PO DAILY Qty: 30 0RF Protocol: Hold for SBP< HOLD for SBP < : 90 atorvastatin 40 mg tablet 40 mg PO DAILY furosemide 40 mg tablet 40 mg PO BID Protocol: Hold for SBP< HOLD for SBP < : 90 albuterol sulfate 90 mcg/actuation aero powdr breath act w/sensor 2 inh inhalation Q6H PRN (Reason: shortness of breath or wheezing) ergocalciferol (vitamin D2) 1,250 mcg (50,000 unit) capsule 1,250 mcg PO MO@0900 fluticasone propion-salmeterol 250-50 mcg/dose blister with device 1 ea INHALATION BID aspirin 81 mg tablet,delayed release (DR/EC) 81 mg PO QAM Spiriva Respimat 2.5 mcg/actuation Mist 2 puff INHALATION DAILY metformin 500 mg tablet 500 mg PO BID Discharge Orders: Discharge Order (Routine); Ordered 01/23/25 Ordered By: Rony gurinder Diet: Advance to usual diet Activity on Discharge: As tolerated Stand Alone Forms: Patient Portal Discharge page Print Language: [place]se Other Ambulatory Orders: Basic Metabolic Panel Fasting (Routine) Timeframe: [id number] Facility: [facility] - Location: Laboratory Ordered By: Rony Mayer Care Plan Goals: Optimize heart failure management, to reduce symptoms and prevent readmission Maintain blood pressure within target range Prevent thromboembolic complications with anticoagulation therapy Adherence to statin therapy and dietary management, monitor for recurrence of biliary symptoms Encourage alcohol, and substance such as cocaine cessation, for heart and liver health Health Concerns: Acute, decompensated heart failure, EF 15-20%, risk for recurrent CHF exacerbations and thromboembolic events Apical thrombus requiring anticoagulation with Eliquis 5 mg twice daily Hx. of acute cholecystitis, currently asymptomatic clinically Hx of substance and alcohol use Hypertension, hyperlidema Plan of Treatment: Continue medical therapy as prescribed for CHFrEF Eliquis as prescribed for apical thrombus, monitor for s/s bleeding Follow low-sodium, heart healthy diet, continue HTN medication regimen Follow up with cardiology within 1 week, Follow up with PCP within 1 week Seek immediate care for chest pain, worsening shortness of breath, syncope, or signs or symptoms of bleeding Assessment: as above Patient Instructions: Heart Failure (DC), Cocaine Use Disorder (DC), Low-Sodium Diet (DC), Alcohol Dependence (DC), Left-sided and Right-sided Heart Failure (DC)
[2025-01-23 11:31] LABS: Glucose, Whole Blood 226 mg/dL (60-115)
[2025-01-23 11:46] VITALS: BP 117/87; PULSE 72; RESP 20; TEMP 36.2; O2SAT 96
--- NOTE | 2025-01-23 12:59 | MHC.CM.PN ---
Pt. has been medically cleared to [place], he will go home via private transport, plan is self care.
== END 2025-01-23 13:40 | disposition home or self-care (01) | DRG 291 ==
LOC: HO.ED 08:53 → HO.EDOVER 14:49 → HO.IMC 19:16
PROVIDERS: Hospitalist; Registered Nurse Emergency; Admitting Provider Physician Assistant Medical; Emergency Provider Emergency Medicine Emergency Medical Services; PCP Nurse Practitioner Primary Care; Visit Provider Internal Medicine
DX: I11.0 Hypertensive heart disease with heart failure (principal); I50.43 Acute on chronic combined systolic (congestive) and diastolic (congestive) heart failure; J96.01 Acute respiratory failure with hypoxia; I47.20 Ventricular tachycardia, unspecified; E87.3 Alkalosis; E11.9 Type 2 diabetes mellitus without complications; J44.9 Chronic obstructive pulmonary disease, unspecified; F10.10 Alcohol abuse, uncomplicated; E78.5 Hyperlipidemia, unspecified; I51.3 Intracardiac thrombosis, not elsewhere classified; F17.210 Nicotine dependence, cigarettes, uncomplicated; F14.10 Cocaine abuse, uncomplicated; Z20.822 Contact with and (suspected) exposure to COVID-19; Z71.6 Tobacco abuse counseling; Z79.82 Long term (current) use of aspirin; Z79.51 Long term (current) use of inhaled steroids; Z79.84 Long term (current) use of oral hypoglycemic drugs; Z79.899 Other long term (current) drug therapy
CPT/HCPCS: 36415; 71046; 76705; 80048; 80053; 80076; 80307; 82040; 82803; 82947; 83735; 83880; 84484; 85025; 85027; 85610; 87637; 93005; 93306; 94640; 99285; J0696; J1650; J1836; J1938; J2919; J3475; Q9957

== ENCOUNTER → 2025-01-20 08:54 | Outpatient (BNV) | payer SELFPAY | PROVIDERS: Emergency Provider Emergency Medicine Emergency Medical Services; PCP Nurse Practitioner Primary Care; Visit Provider Radiology Diagnostic Radiology | DX: K81.0 Acute cholecystitis (principal); I51.7 Cardiomegaly | CPT/HCPCS: 71046; 76705 ==

== ENCOUNTER → 2025-01-20 08:54 | Outpatient (BNV) | payer SELFPAY | PROVIDERS: Admitting Provider Physician Assistant Medical; Emergency Provider Emergency Medicine Emergency Medical Services; PCP Nurse Practitioner Primary Care; Visit Provider Internal Medicine | DX: I49.1 Atrial premature depolarization (principal); I44.4 Left anterior fascicular block; I21.09 ST elevation (STEMI) myocardial infarction involving other coronary artery of anterior wall | CPT/HCPCS: 93010 ==

== ENCOUNTER 2025-01-20 14:45 | Outpatient (BNV) | payer SELFPAY | END 2025-01-22 07:00 | PROVIDERS: Admitting Provider Physician Assistant Medical; Emergency Provider Emergency Medicine Emergency Medical Services; PCP Nurse Practitioner Primary Care; Visit Provider Internal Medicine Cardiovascular Disease | DX: I51.89 Other ill-defined heart diseases (principal) | CPT/HCPCS: 93306 ==

== ENCOUNTER → 2025-01-20 14:45 | Outpatient (BNV) | payer SELFPAY | PROVIDERS: Admitting Provider Physician Assistant Medical; Emergency Provider Emergency Medicine Emergency Medical Services; PCP Nurse Practitioner Primary Care; Visit Provider Physician Assistant Medical | DX: F14.10 Cocaine abuse, uncomplicated (principal); Z78.9 Other specified health status; I10 Essential (primary) hypertension; I50.9 Heart failure, unspecified; I51.7 Cardiomegaly; I50.22 Chronic systolic (congestive) heart failure; I47.20 Ventricular tachycardia, unspecified; E78.5 Hyperlipidemia, unspecified | CPT/HCPCS: 99223; 99232; 99233 ==

== ENCOUNTER → 2025-01-20 14:45 | Outpatient (BNV) | payer SELFPAY | PROVIDERS: Admitting Provider Physician Assistant Medical; Emergency Provider Emergency Medicine Emergency Medical Services; PCP Nurse Practitioner Primary Care; Visit Provider Surgery | DX: K81.9 Cholecystitis, unspecified (principal); I50.9 Heart failure, unspecified | CPT/HCPCS: 99222; 99232 ==

== ENCOUNTER 2025-02-05 19:45 | Inpatient (IN) | payer MEDICAID, SELFPAY ==
[2025-02-05] VITALS (14 sets, daily range): BP systolic 100–145; BP diastolic 50–104; PULSE 130–144; RESP 26–45; TEMP 36.3–37.1; O2SAT 98–100; BMI 27.9
--- NOTE | 2025-02-05 | ECG_ITS ---
Test Reason : SOB Blood Pressure : */* mmHG Vent. Rate : 139 BPM Atrial Rate : 139 BPM P-R Int : 112 ms QRS Dur : 102 ms QT Int : 328 ms P-R-T Axes : * -70 75 degrees QTcB Int : 499 ms Probable atrial flutter Left axis deviation Inferior infarct , age undetermined Anteroseptal infarct Abnormal ECG When compared with ECG of 20-Jan-2025 09:33, Significant changes have occurred Referred By: Garret Prieto Electronically Signed By: BERNARD GLASER
--- NOTE | ~2025-02-05 | CT_ITS ---
CLINICAL HISTORY: elevated LFTS, new renal failure CT abdomen and pelvis without contrast Comparison: US - US ABDOMEN LIMITED - 01/20/25 12:16 EDT Findings: Mild amount of ground-glass opacity at the lung bases, such as in the right middle lobe. Cardiomegaly. No cholelithiasis visualized on CT. No definitive gallbladder wall thickening or pericholecystic fluid. There is a Greenfield catheter in the bladder which is decompressed. Hepatic steatosis. Slight lobularity to the contour of the liver capsule. No hydronephrosis. Calcifications in the renal pelvises are vascular. Right renal cyst. Left renal subcentimeter low attenuating lesion which is too small to characterize. no splenomegaly. The other solid organs are unremarkable. No bowel wall thickening or dilation. A normal appendix is identified. No aneurysm. Severe calcified atherosclerotic disease. No lymphadenopathy. Small ascites. Small bilateral inguinal hernias. There is ascites within the right inguinal hernia. No acute osseous abnormality. Impression: No urinary tract stone or obstruction. Greenfield catheter within a decompressed bladder. Hepatic steatosis. Slight lobularity to the contour of the liver capsule which may indicate cirrhosis. Small ascites. Mild amount of ground-glass opacity in the lung bases could be infectious/inflammatory or secondary to edema. This document has been electronically signed by: Sravanthi Winters MD on 02/05/2025 22:20:51
--- NOTE | ~2025-02-05 | CT_ITS ---
CLINICAL HISTORY: dyspnea CT chest without contrast Comparison: CR - XR CHEST 1V - 02/05/25 20:09 EDT CR - XR CHEST 2V - 01/20/25 09:[address]/REG/IN/SR - CT CHEST ANGIOGRAPHY WITH IV CONTRAST - 08/24/24 09:16 EDT Findings: No mediastinal mass or lymphadenopathy. Cardiomegaly. Moderate calcified coronary artery disease. Normal size thoracic aorta with a mild amount of calcified atherosclerotic disease. Mild amount of bilateral ground-glass opacity. Subsegmental atelectasis versus linear scarring. No pneumothorax or pleural effusion. No acute osseous or soft tissue abnormality. No acute pathology in the imaged portion of the upper abdomen. Impression: Mild amount of bilateral ground-glass opacity could be infectious/inflammatory or secondary to developing edema. This document has been electronically signed by: Sravanthi Winters MD on 02/05/2025 22:23:54
--- NOTE | ~2025-02-05 | XR_ITS ---
CLINICAL HISTORY: SOB Single view of the chest. Comparison 01/17/2025. Findings: The heart is enlarged. There is mild interstitial thickening in the lungs. No focal consolidation or pleural effusion is seen. Impression: Mild interstitial thickening is nonspecific but could represent mild CHF. This document has been electronically signed by: Lorenzo Sosa MD on 02/05/2025 20:33:18
--- NOTE | 2025-02-05 20:09 | ED.SOB ---
HPI - SOB/Dyspnea General Chief Complaint: Dyspnea Stated Complaint: respiratory distress, 70 RA, 100% on neb Time Seen by Provider: 02/05/25 20:09 Source: EMS Mode of arrival: EMS Limitations: other (Lethargic ) History of Present Illness ED Provider: HPI Narrative: 64-year-old male with history of nonischemic cardiomyopathy, endorsed using cocaine 3 days ago, uses tobacco, EMS reported hypoxic to the 70s, presented lethargic, EMS initiated treatment for COPD with albuterol, limited historian. Related Data Home Medications ?Medication ?Instructions ?Recorded ?Confirmed metformin 500 mg tablet 500 mg PO BID 10/22/21 01/20/25 atorvastatin 40 mg tablet 40 mg PO DAILY 04/07/24 01/20/25 albuterol sulfate 90 mcg/actuation 2 inh inhalation Q6H PRN shortness 10/06/24 01/20/25 breath activated powder of breath or wheezing inhaler,sensor furosemide 40 mg tablet 40 mg PO BID 10/06/24 01/20/25 ergocalciferol (vitamin D2) 1,250 1,250 mcg PO MO@0900 12/29/24 01/20/25 mcg (50,000 unit) capsule aspirin 81 mg tablet,delayed 81 mg PO QAM 01/20/25 01/20/25 release fluticasone 250 mcg-salmeterol 50 1 ea inhalation BID 01/20/25 01/20/25 mcg/dose blistr powdr for inhalation tiotropium bromide 2.5 2 puff inhalation DAILY 01/20/25 01/20/25 mcg/actuation mist for inhalation (Spiriva Respimat) Previous Rx's ?Medication ?Instructions ?Recorded spironolactone 25 mg tablet 25 mg PO DAILY #30 tabs 09/19/21 metoprolol succinate 50 mg 50 mg PO DAILY #30 tabs 06/29/24 tablet,extended release 24 hr (Toprol XL) acetazolamide 250 mg tablet 250 mg PO BID #6 tabs 01/23/25 apixaban 5 mg tablet (Eliquis) 5 mg PO BID #180 tabs 01/23/25 Allergies Allergy/AdvReac Type Severity Reaction Status Date / Time penicillin V Allergy Severe Swollen Verified 02/05/25 20:00 face Penicillins (PENICILLINS) Allergy Severe ANGIOEDEMA Verified 02/05/25 20:00 shellfish derived (SHELLFISH Allergy Severe ANAPHYLAXIS Verified 02/05/25 20:00 DERIVED) fish derived (fish) Allergy Anaphylaxis Verified 02/05/25 20:00 seafood Allergy Anaphylaxis Verified 02/05/25 20:00 Review of Systems Review of Systems: Yes Unobtainable due to mental status PMFSH Past Medical History Medical History Cocaine abuse Pulmonary HTN Heart failure with reduced ejection fraction Alcohol abuse Noncompliance Asthma Smoker Tobacco abuse Chronic HFrEF (heart failure with reduced ejection fraction) Streptococcus infection, group G Hypertension RVH (right ventricular hypertrophy) Tobacco abuse Elevated troponin Bacteremia Asthma Surgical History S/P cardiac catheterization Hx of appendectomy Family History Family History Mother Breast cancer Social History Social History Household Members: Family Household Members Other:: lives alone Housing: Apartment Do you presently have visiting nurse or other home services: No Unable to assess alcohol history related to: Unknown Alcohol intake: current Alcohol intake frequency: 0-2 drinks per day Alcohol type: beer Comment: pt refuses assistance to BR; up ad xin Patient Tobacco Use Status: Current someday Tobacco user Tobacco use type: Cigarette Cigarette Packs Per Day: 0.5 Cigarettes Per Day: 5 Years Smoked: 25 Smoked in Last 30 Days: Yes e-Cigarette/Vaping Use: Currently Using Second Hand Smoke Exposure: No Substance Use Type: Crack/Cocaine Advance Directives: Yes Advance Directives on File: Yes Advance Directives Date on File: 02/27/21 Do you have a plan to hurt others: No Plan service: No Current occupational status: employed Physical Exam Vital Signs: Vital Signs: Last Vital Signs Temp 98.8 F 02/05/25 21:28 Pulse 136 H 02/05/25 22:45 Resp 34 H 02/05/25 21:23 BP 118/72 02/05/25 22:45 Pulse Ox 100 02/05/25 21:23 O2 Del Method BiPAP 02/05/25 21:23 BMI result Body Mass Index 27.9 Const: Other: Gen: ?Sick appearing, lethargic HEENT: Puffiness around the eyes Neck: Positive JVD bilateral CV: Difficult to auscultate, palpable pulses, tachycardic Resp: ?Rhonchorous throughout, tachypneic Abd: ?Bowel sounds are present, no tenderness no rebound no rigidity Skin: Warm, dry, intact, Neuro: ?Alert and oriented x3, moving upper and lower extremities symmetrically, no obvious facial asymmetry noted Medications Administered Discontinued Medications Generic Name Dose Route Start Last Admin Trade Name Josselin PRN Reason Stop Dose Admin Ceftriaxone Sodium 1 gm 02/05/25 22:39 02/05/25 22:47 Ceftriaxone Sodium 1 Gm Vial IVPUSH 02/05/25 22:40 1 gm ONCE ONE Administration Furosemide 40 mg 02/05/25 20:27 02/05/25 20:37 Furosemide 40 Mg/4 Ml Vial IVPUSH 02/05/25 20:28 40 mg ONCE ONE Administration Protocol Nitroglycerin 1 inch 02/05/25 22:38 02/05/25 22:45 Nitroglycerin 2 % Oint 1 Gm Packet TRANSDERMA 02/05/25 22:39 1 inch ONCE ONE Administration Medical Decision Making Medical Decision Making MDM Narrative: 20:30 patient presented with significant dyspnea, tachypnea, lethargy, placed on a gurney right away, EMS initiated treatment with albuterol and CPAP, he was not able to tolerate CPAP, was switched over to BiPAP, bedside ultrasound with decreased squeeze 10-15% as his prior echo, shortly after BiPAP initiation patient was actually becoming more responsive and he states that he took his medications regular basis has been using cocaine last time 3 days ago continues to smoke, I did get in touch with Dr. Portillo from Cardiology to discuss management of this otherwise critically ill patient with significant cardiomyopathy, for now we will remain on CPAP or BiPAP whatever he tolerates, and diuresis. 20:48 patient was looking much better on BiPAP and tachypnea has improved, I tried to switch him over to CPAP and his tachypnea went from 20s to 40s right away, his blood work reveals elevated lactate, T bili elevation Along with bumped troponin, BNP highest it has been, I believe that lactate elevation is due to stress endogenous adrenaline release, T bili elevation what other LFTs is shocky liver due to CHF I we will obtain CAT scan of the chest and CT abdomen and pelvis for further evaluation. pt's care will be signed out to Dr. Mekhi cavazos admission. I consulted Dr. Brar from ICU as well. 10:48 PM 02/05/2025 (Dr. Darlyn Gaming, D.O.) CT scans do not show evidence of large infiltrate though he does have some potential pneumonitis versus pulmonary edema at the bases. Given this in the patient's telling me that he may be having fevers lately, I have decided to cover him empirically with antibiotics. That being said, clinically he presents more as a CHF exacerbation rather than a true sepsis. Lactic and blood cultures have been drawn, awaiting repeat lactic now. Initial lactic 3.8. Initiated doxycycline and Rocephin. I have also given him an inch of nitro paste for his CHF exacerbation. He is having no diuresis after 40 of Lasix and I suspect he needs to have some dilation of the renal arterials to help blood flow a bit. He is in acute renal failure. Avoiding additional fluid administration due to obvious volume overload on exam. Additional fluid administration would result in decompensation. His blood pressure is normal after 2 hours of BiPAP. Case discussed with mission commander who agrees with plan for admission to the ICU. Admitted in serious condition Differential Diagnosis Differential Diagnoses: The differential diagnosis associated with the presentation includes (CHF, COPD exacerbation, pneumothorax, ACS, PE,) Admission/Observation Consideration of admission/observation: Escalation of care including admission/observation considered 2022 Emergency Medicine Coding Guide from [employer]Pollen on 02/05/2025 All calculations should be rechecked by clinician prior to use RESULT SUMMARY: 5 Estimated Level of Service Problems: High (5) Risk: High (5) Data: Extensive (5) NARRATIVE MDM: This patient's problem complexity is High as patient: may have an acute or chronic illness/injury posing a threat to life or body function. This patient's risk is High due to: overall presentation requiring evaluation for a potentially High-risk process. This patient's data complexity is Extensive due to: -multiple tests ordered/reviewed -independent interpretation of imaging or EKG -discussion of management/testing with external professional INPUTS: Number and Complexity ?> 2 = 5: illness/injury w/life or body threat (b) Risk level ?> 4 = High Tests ordered ?> 3 = =3 Tests results reviewed (excluding labs) ?> 2 = 2 Prior external notes reviewed ?> 0 = 0 Assessment requiring and independent historian ?> 0 = No Independent interpretation of tests ?> 1 = Yes Discussed management/test interpretation w/external professional ?> 1 = Yes Consult Healthcare Provider Management of the patient was discussed with: Exhibition Specialist (Dr. Portillo) Lab Data MDM Lab Attestation statement: I reviewed the patient's lab results. 02/05/25 20:03 02/05/25 20:03 Labs: Lab Results 02/05/25 02/05/25 02/05/25 Range/Units 20:03 20:11 20:19 WBC 5.1 (4.8-10.8) X10*3/uL RBC 5.17 (4.60-5.80) X10*6/uL Hgb 16.2 (14.0-18.0) g/dl Hct 49.0 (42.0-52.0) % MCV 94.8 (80.0-98.0) fL MCH 31.3 (27.0-33.0) pg MCHC 33.1 (31.0-36.0) g/dl RDW 15.8 (11.0-16.0) % Plt Count 204 (160-400) X10*3/uL MPV 9.9 (9.4-12.4) fL Immature Gran % (Auto) Cancelled Neut % (Auto) Cancelled Lymph % (Auto) Cancelled [place] % (Auto) Cancelled Eos % (Auto) Cancelled Baso % (Auto) Cancelled Lymph # (Auto) Cancelled [place] # (Auto) Cancelled Eos # (Auto) Cancelled Baso # (Auto) Cancelled Abs Immat Gran (auto) Cancelled Absolute Neuts (auto) Cancelled Absolute Nucleated RBC 0.000 (0.0-0.012) X10*3/uL Nucleated RBC % (auto) 0.0 (0.0-0.2) /100WBC Neutrophils % (Manual) 56 (45-73) % Band Neutrophils % 2 L (3-5) % Lymphocytes % (Manual) 10 L (20-40) % Atypical Lymphs % (Man) 11 H (0-6) % Monocytes % (Manual) 18 H (2-11) % Basophils % (Manual) 3 H (0-2) % Abs Neuts (Manual) 3.0 (2.0-8.3) X10*3/uL Lymphocytes # (Manual) 0.5 L (1.2-4.9) X10*3/uL Atyp Lymphs # (Manual) 0.6 x10*3/uL Monocytes # (Manual) 0.9 (0.1-1.2) X10*3/uL Basophils # (Manual) 0.2 (0.0-0.2) X10*3/uL Platelet Estimate NORMAL (NORMAL) Large Platelets PRESENT Plt Morphology Comment NOTED RBC Morphology NOTED Polychromasia 2+ (3-5) /OIF Macrocytosis 1+ (5-14) /OIF Acanthocytes (Spur) 1+ (0-2) /OIF Smear Tech's Comments MANUAL DIFF PT 15.5 H (10.9-12.4) SEC INR 1.4 H (0.9-1.1) O2 Saturation 98.0 % ABG pH at Pt Temp 7.18 L* (7.35-7.45) ABG pCO2 at Pt Temp 56 H (32-45) mmHg ABG pO2 at Pt Temp 126 H (83-108) mmHg ABG HCO3 21 L (22-26) mmol/L ABG Base Excess (Actual) -7.5 mmol/L VBG pH 7.12 L* (7.32-7.43) VBG pCO2 69 mmHg VBG pO2 44 mmHg VBG HCO3 23 (22-26) mmol/L VBG O2 Saturation 54.0 % VBG Base Excess -7.4 mmol/L Sodium 137 (135-145) mmol/L Potassium 5.2 H D (3.3-5.1) mmol/L Chloride 98 (96-108) mmol/L Carbon Dioxide 23 (22-29) mmol/L Anion Gap 21 H (12-20) BUN 63 H (9-16) mg/dL Creatinine 2.91 H (0.5-1.4) mg/dL Estim Creat Clear Calc 29.5 Estimated GFR 22 Random Glucose 225 H (60-115) mg/dL Lactic Acid 3.8 H* (0.5-2.0) mmol/L Calcium 9.8 (8.4-10.2) mg/dL Magnesium 3.0 H (1.6-2.6) mg/dL Total Bilirubin 1.5 H (0.0-1.0) mg/dL AST 157 H (5-37) U/L ALT 128 H (0-40) U/L Alkaline Phosphatase 326 H (39-117) U/L Troponin I High Sens 157.3 H* D (<3.5-35.0) ng/L B-Natriuretic Peptide 2736 H (<100) pg/mL Total Protein 9.1 H (6.5-8.0) g/dL Albumin 4.8 (3.5-5.0) g/dL Beta-Hydroxybutyrate 0.43 H (0.02-0.27) mmol/L Urine Opiates Screen (Not Detect) Ur Buprenorphine Scrn (Not Detect) ng/mL Ur Oxycodone Screen (Not Detect) ng/mL Urine Methadone Screen (Not Detect) ng/mL Urine Fentanyl Screen (Not Detect) Ur Barbiturates Screen (Not Detect) Ur Phencyclidine Scrn (Not Detect) Ur Amphetamines Screen (Not Detect) U Benzodiazepines Scrn (Not Detect) Urine Cocaine Screen (Not Detect) U Marijuana (THC) Screen (Not Detect) 02/05/25 Range/Units 21:03 WBC (4.8-10.8) X10*3/uL RBC (4.60-5.80) X10*6/uL Hgb (14.0-18.0) g/dl Hct (42.0-52.0) % MCV (80.0-98.0) fL MCH (27.0-33.0) pg MCHC (31.0-36.0) g/dl RDW (11.0-16.0) % Plt Count (160-400) X10*3/uL MPV (9.4-12.4) fL Immature Gran % (Auto) Neut % (Auto) Lymph % (Auto) [place] % (Auto) Eos % (Auto) Baso % (Auto) Lymph # (Auto) [place] # (Auto) Eos # (Auto) Baso # (Auto) Abs Immat Gran (auto) Absolute Neuts (auto) Absolute Nucleated RBC (0.0-0.012) X10*3/uL Nucleated RBC % (auto) (0.0-0.2) /100WBC Neutrophils % (Manual) (45-73) % Band Neutrophils % (3-5) % Lymphocytes % (Manual) (20-40) % Atypical Lymphs % (Man) (0-6) % Monocytes % (Manual) (2-11) % Basophils % (Manual) (0-2) % Abs Neuts (Manual) (2.0-8.3) X10*3/uL Lymphocytes # (Manual) (1.2-4.9) X10*3/uL Atyp Lymphs # (Manual) x10*3/uL Monocytes # (Manual) (0.1-1.2) X10*3/uL Basophils # (Manual) (0.0-0.2) X10*3/uL Platelet Estimate (NORMAL) Large Platelets Plt Morphology Comment RBC Morphology Polychromasia /OIF Macrocytosis /OIF Acanthocytes (Spur) /OIF Smear Tech's Comments PT (10.9-12.4) SEC INR (0.9-1.1) O2 Saturation % ABG pH at Pt Temp (7.35-7.45) ABG pCO2 at Pt Temp (32-45) mmHg ABG pO2 at Pt Temp (83-108) mmHg ABG HCO3 (22-26) mmol/L ABG Base Excess (Actual) mmol/L VBG pH (7.32-7.43) VBG pCO2 mmHg VBG pO2 mmHg VBG HCO3 (22-26) mmol/L VBG O2 Saturation % VBG Base Excess mmol/L Sodium (135-145) mmol/L Potassium (3.3-5.1) mmol/L Chloride (96-108) mmol/L Carbon Dioxide (22-29) mmol/L Anion Gap (12-20) BUN (9-16) mg/dL Creatinine (0.5-1.4) mg/dL Estim Creat Clear Calc Estimated GFR Random Glucose (60-115) mg/dL Lactic Acid (0.5-2.0) mmol/L Calcium (8.4-10.2) mg/dL Magnesium (1.6-2.6) mg/dL Total Bilirubin (0.0-1.0) mg/dL AST (5-37) U/L ALT (0-40) U/L Alkaline Phosphatase (39-117) U/L Troponin I High Sens (<3.5-35.0) ng/L B-Natriuretic Peptide (<100) pg/mL Total Protein (6.5-8.0) g/dL Albumin (3.5-5.0) g/dL Beta-Hydroxybutyrate (0.02-0.27) mmol/L Urine Opiates Screen Not Detected (Not Detect) Ur Buprenorphine Scrn Not Detected (Not Detect) ng/mL Ur Oxycodone Screen Not Detected (Not Detect) ng/mL Urine Methadone Screen Not Detected (Not Detect) ng/mL Urine Fentanyl Screen Not Detected (Not Detect) Ur Barbiturates Screen Not Detected (Not Detect) Ur Phencyclidine Scrn Not Detected (Not Detect) Ur Amphetamines Screen Not Detected (Not Detect) U Benzodiazepines Scrn Not Detected (Not Detect) Urine Cocaine Screen POSITIVE H (Not Detect) U Marijuana (THC) Screen Not Detected (Not Detect) ABG Data Attestation ABG: I personally reviewed and interpreted this ABG as follows: (Respiratory acidosis) Independent Interpretation I performed an independent interpretation of an: EKG and Plain X-Ray (No pneumothorax, no pulmonary effusion, increased vascular markings, cardiomegaly) Interpretation: No ST-T changes to suspect underlying ACS, no AV chuyita blocks 139 beats per minute Independent Historian Clinical information obtained from an independent historian. History obtained from or confirmed by: EMS Chronic Conditions Patient?s care impacted by: Diabetes and Hypertension Procedures ABG Interpretation ABG Interpretation 1: Interpretation: abnormal and respiratory acidosis Ultrasound ED POC Ultrasound: EMERGENCY ULTRASOUND REPORT?Point of Care Cardiac (Echo-Focus), images I locally stored Emergent Cardiac for Indication: Views Used: Parasternal long, parasternal short, 4 chamber, subxiphoid, IVC Pericardial Effusion/Tamponade Findings: No pericardial effusion Global LV Fxn: 10-15% IVC Dilation and Resp Variation: IVC dilated Patient with decreased cardiac squeeze, dilation of IVC, no obvious B-lines at this time, no pneumothorax Critical Care Time Critical Care Time Critical Care Time: Yes Total Critical Care Time: 60 Attestation: Time is exclusive of separately billable procedures. Time includes: direct patient care, patient reassessment, coordination of patient care, interpretation of data (laboratory data, pulse oximetry, arterial blood gases and chest xrays), review of patient's medical records, medical consultation and documentation of patient care. Procedures excluded from critical care time: central intravenous line placement and electrocardiography. Discharge Plan Discharge Clinical Impression: Cardiomyopathy, Congestive heart failure, Cocaine abuse, Acute respiratory acidosis, Acute on chronic renal failure Patient Disposition: Home, Self-Care Prescriptions: No Action metoprolol succinate [Toprol XL] 50 mg tablet extended release 24 hr 50 mg PO DAILY Qty: 30 5RF spironolactone 25 mg Tablet 25 mg PO DAILY Qty: 30 0RF Protocol: Hold for SBP< HOLD for SBP < : 90 atorvastatin 40 mg tablet 40 mg PO DAILY furosemide 40 mg tablet 40 mg PO BID Protocol: Hold for SBP< HOLD for SBP < : 90 albuterol sulfate 90 mcg/actuation aero powdr breath act w/sensor 2 inh inhalation Q6H PRN (Reason: shortness of breath or wheezing) ergocalciferol (vitamin D2) 1,250 mcg (50,000 unit) capsule 1,250 mcg PO MO@0900 fluticasone propion-salmeterol 250-50 mcg/dose blister with device 1 ea INHALATION BID aspirin 81 mg tablet,delayed release (DR/EC) 81 mg PO QAM Spiriva Respimat 2.5 mcg/actuation Mist 2 puff INHALATION DAILY Eliquis 5 mg Tablet 5 mg PO BID Qty: 180 0RF acetazolamide 250 mg tablet 250 mg PO BID Qty: 6 0RF metformin 500 mg tablet 500 mg PO BID Print Language: Tajik
[2025-02-05 20:12] LABS: Hematocrit 49.0 % (42.0-52.0); Hemoglobin 16.2 g/dl (14.0-18.0); Mean Corpuscular HGB Conc 33.1 g/dl (31.0-36.0); Mean Corpuscular Hemoglobin 31.3 pg (27.0-33.0); Mean Corpuscular Volume 94.8 fL (80.0-98.0); NRBC Abs Auto 0.000 X10*3/uL (0.0-0.012); NRBC Pct Auto 0.0 /100WBC (0.0-0.2); Platelet Count 204 X10*3/uL (160-400); Red Blood Count 5.17 X10*6/uL (4.60-5.80); White Blood Count 5.1 X10*3/uL (4.8-10.8)
[2025-02-05 20:16] LABS: INTERNATIONAL NORM RATIO 1.4 (0.9-1.1); Prothrombin Time 15.5 SEC (10.9-12.4)
[2025-02-05 20:23] LABS: ABG HCO3 21 mmol/L (22-26); ABG O2 % Saturation 98.0 %
[2025-02-05 20:23] LABS: Venous Blood Gas Refer to POC result
[2025-02-05 20:24] LABS: VBG HCO3 23 mmol/L (22-26); VBG O2 % Saturation 54.0 %
[2025-02-05 20:37] LABS: Atypical Lymph Absolute Manual 0.6 x10*3/uL; Atypical Lymphs Percent Manual 11 % (0-6); Band Neutrophils Percent 2 % (3-5); Basophils Abs Manual 0.2 X10*3/uL (0.0-0.2); Basophils Percent Manual 3 % (0-2); Lymphocytes Absolute Manual 0.5 X10*3/uL (1.2-4.9); Lymphocytes Percent Manual 10 % (20-40); Monocytes Absolute Manual 0.9 X10*3/uL (0.1-1.2); Monocytes Percent Manual 18 % (2-11); Neutrophils Absolute Manual 3.0 X10*3/uL (2.0-8.3); Neutrophils Percent Manual 56 % (45-73)
[2025-02-05] MEDS: Furosemide 40 MG/4 ML VIAL IVPUSH (20:37)
[2025-02-05 20:38] LABS: Macrocytosis 1+ (5-14) /OIF; Polychromasia 2+ (3-5) /OIF; RBC Morphology NOTED
[2025-02-05 20:39] LABS: Acanthocytes 1+ (0-2) /OIF
[2025-02-05 20:40] LABS: B Type Natriuretic Peptide 2736 pg/mL (<100); Large Platelet PRESENT
--- NOTE | 2025-02-05 20:40 | PC.NURSE ---
Pt refused nash cathether but was instructed if doesnt diurese in a timely fashion, will revisit the subject. Dr. Amanda aware
[2025-02-05 20:46] LABS: Alanine Aminotransferase 128 U/L (0-40); Albumin Level 4.8 g/dL (3.5-5.0); Alkaline Phosphatase 326 U/L (39-117); Anion Gap 21 (12-20); Aspartate Amino Transferase 157 U/L (5-37); Blood Urea Nitrogen 63 mg/dL (9-16); Calcium 9.8 mg/dL (8.4-10.2); Carbon Dioxide 23 mmol/L (22-29); Chloride 98 mmol/L (96-108); Creatinine Clr Calc Pharmacy 29.5; Estimated Glomerular Filt Rate 22; Magnesium 3.0 mg/dL (1.6-2.6); Potassium 5.2 mmol/L (3.3-5.1); Sodium 137 mmol/L (135-145); Total Protein 9.1 g/dL (6.5-8.0)
[2025-02-05 20:48] LABS: Troponin-I High Sensitivity 157.3 ng/L (<3.5-35.0)
--- NOTE | 2025-02-05 21:02 | PC.NURSE ---
Spoke with patient's girlfriend (Audrey) on the phone with patient's consent. Audrey given update on patient's current status. Patient changed his mind and consented to nash catheter insertion. Performed by Diana Kumar RN. Care ongoing by primary RN Lauren.
--- NOTE | 2025-02-05 21:05 | PC.NURSE ---
pt agreeable to having indwelling catheter placed. 16fr nash catheter w/ 10ml balloon inserted. 75 ml of clear, pale yellow urine noted immediately post output. urine specimen obtained/sent to lab. pt tolerated well.
--- NOTE | 2025-02-05 21:20 | PC.NURSE ---
pt transferred to CT and back to ED4 w/ this RN and RT. pt tolerated transport well w/o complications. pt remains on bipap at this time - 18/10 @ 100%. otherwise remains tachycardic/tachypneic. sob/wob noted. pt remains in upright position to promote patent airway. CT results pending at this time. plan of care ongoing. call newell placed within reach.
--- OUTSIDE RECORDS SUMMARY | 2025-02-05 21:29 | XMS_ITS | Encounter Summary ---
Author Organization [employer] Address [address] [facility] [address] [place] [address] Care Team Providers Care Chief Green Officer Name Role Phone Veronique Gastelum Primary Care Provider [phone] Aguila Portillo MD Unavailable Encounter Details Date Type Department Care Team (Late st Contact Info) Description 08/20/2022 Orders Only [facility] MED & PEDS [address] [place] [address] Billie Morales LPN Social History Tobacco Use [...] Care Team (Late st Contact Info) Description 02/20/2025 10:30 AM EDT Office Visit [facility] MEDICINE [address] [place] [address] Veronique Gastelum ANP [address] [place] [address] documented as of this encounter Visit Diagnoses Not on filedocumented in this encounter Care Teams Chief Green Officer Relationship Specialty Start Date End Date Veronique Gastelum ANP [address] [place] [address] PCP - General Family Medicine 05/29/21 Aguila Portillo MD [address]rd [place] [address] Cardiology 05/24/24 documented as of this encounter
--- OUTSIDE RECORDS SUMMARY | 2025-02-05 21:29 | XMS_ITS | Encounter Summary ---
Author Organization [employer] Address [address] [facility] [address] [place] [address] Care Team Providers Care Office Cleaner Name Role Phone Veronique Gastelum Primary Care Provider [phone] Aguila Portillo MD Unavailable [phone] Encounter Details Date Type Department Care Team (Late st Contact Info) Description 07/21/2022 Orders Only [facility] CH[facility] MED & PEDS [address] [place] [address] Billie Morales LPN Social History Tobacco Use [...] Description 02/20/2025 10:30 AM EDT Office Visit [facility] MEDICINE [address] [place] [address] Veronique Gastelum ANP [address] [place] [address] documented as of this encounter Visit Diagnoses Not on filedocumented in this encounter Care Teams Office Cleaner Relationship Specialty Start Date End Date Veronique Gastelum ANP [address] [place] [address] PCP - General Family Medicine 05/29/21 Aguila Portillo MD [address] [place] [address] Cardiology 05/24/24 documented as of this encounter
--- OUTSIDE RECORDS SUMMARY | 2025-02-05 21:29 | XMS_ITS | Encounter Summary ---
Author Organization [employer] Address [address] [facility] [place] [address] Care Team Providers Care Copyright Manager Name Role Phone Veronique Gastelum HILARIO Primary Care Provider [phone] Aguila Portillo MD Unavailable [phone] Encounter Details Date Type Department Care Team ([facility] st Contact Info) Description 12/29/2024 Results Follow-Up [facility] MEDICINE [address] [place] [address] Ewelina Villanueva NP [address] [place] [address] High Sensitivity Troponin I, Glucose, Whole Blood, Drug Monitoring, Panel 1, Screen, Urine Social History Tobacco Use Types Packs/Day Years [...] Description 02/20/2025 10:30 AM EDT Office Visit [facility] MEDICINE [address] [place] [id number] Veronique Gastelum ANP [address] [place] [phone] documented as of this encounter Visit Diagnoses Not on filedocumented in this encounter Care Teams Copyright Manager Relationship Specialty Start Date End Date Veronique Gastelum ANP [address] [place] [address] PCP - General Family Medicine 05/29/21 Aguila Portillo MD [address] [place] [address] 3rd [place] [address] Cardiology 05/24/24 documented as of this encounter
--- OUTSIDE RECORDS SUMMARY | 2025-02-05 21:29 | XMS_ITS | Clinical Summary ---
Author Organization [employer] Address [address] [facility] [address] [facility] [address] [place] [address] Care Team Providers Care Backend Developer Name Role Phone Sera Bello HILARIO Primary Care Provider [phone] Aguila Portillo MD Unavailable [phone] Allergies Active Allergy Reactions Criticality Noted Date [...] Devices (Fingertip Pulse Oximeter) miscIndications :COPD exacerbation (CMS/[facility]) Use to check O2, go to ER [...] stripIndication s:Diabetes mellitus with coincident hypertension (CMS/HCC) (CMS/[facility]) TEST BLOOD SUGAR TWICE DAILY 50 strip [...] ronic obstructive pulmonary disease, unspecified COPD type ([facility]/HCC) Inhale 2 puffs every 6 (six) hours if needed for wheezing or shortness of breath. 18 g 1 10/06/19 25 Active lidocaine (Lidoderm) 5 % patchIndication s:Acute bilateral low back pain without sciatica Apply 1 patch topically Once per day. Remove & discard patch within 12 hours or as directed by MD. 30 patch 2 10/06/19 25 Active ergocalciferol (Vitamin D2) 1.25 MG (60392 UT) capsule TAKE 1 CAPSULE BY MOUTH ONCE WEEKLY ON Wednesday 12 capsule 1 07/10/20 25 Active metFORMIN (Glucophage) 500 MG tabletIndicatio [...] 90 tablet 1 12/15/19 24 025 Discontinued Active Problems Problem Noted [...] Encounters Date Type Department Care Team Description 01/24/2025 Patient Outreach [address] [address] Sera Bello ANP Care Coordination (CHW outreach for SDOH PT-1 and food needs-referral completed /) 01/24/2025 Patient Outreach [address] [address] Sera Bello ANP Transition Of Care (Tcm) (HDF scheduled and SDOH screening positive and Tobacco screening negative) 01/22/2025 Patient Outreach [facility] [address] [place] [address] Sera Bello ANP Transition Of Care (Tcm) (HDF unscheduled.) 01/20/2025 Orders Only GENERIC EXTERNAL DATA DEPARTMENT Provider, Generic External Data 01/18/[address] [address] Sera Bello ANP Insurance 01/18/[address] [address] Sera Bello ANP chart prep 01/16/[address] [address] Sera Bello ANP 01/10/[address] [address] Magdalena Wilkins, PharmD 01/01/[address] [address] Sera Bello ANP Appointment Request 01/01/2025 Patient Outreach [address] [address] Sera Bello ANP Transition Of Care (Tcm) (HDF- Unscheduled LVM ) 12/29/2024 Results Follow-Up [address] [address] Ewelina Villanueva NP High Sensitivity Troponin I, Glucose, Whole Blood, Drug Monitoring, Panel 1, Screen, Urine 12/29/2024 Orders Only GENERIC EXTERNAL DATA DEPARTMENT Provider, Generic External Data 12/27/[address] [facility] [address] [facility] [place] [address] Sera Bello ANP Hypertension associated with diabetes (CMS/HCC) 12/21/[address] [facility] [address] [place] [address] Sera Bello ANP 12/04/[address] [facility] [address] [place] [address] Sera Bello ANP No Show 12/04/[address] [facility] [address] [place] [address] Sera Bello ANP Referral 12/03/[address] [facility] [address] [place] [address] Sera Bello ANP Thyromegaly (Primary Dx) 12/01/[address] [address] Sera Bello ANP Appointment Request from Last [...] housing situation today? I have ger damon 01/24/[address] you li ve. Do you have problems with any of the following? Mold 01/24/2025 Food Insecurity Answer Date Recorded Within the past 12 months, y ou worried that your food would run out before you got money to buy more: Sometimes True 2024 Within the past 12 months,th e food you bought just didn't last and you didn't have enough money to get more: Sometimes True 01/24/2025 Transportation Answer Date Recorded In the past 12 months, has l ack of transportation kept you from medical appts, meetings, work or from getting things needed for daily living? No 01/24/2025 Utilities Answer Date Recorded In the past 12 months, has t he electric, gas, oil or water company threatened to shut off services in your home? No 01/24/2025 Depression Answer Date Recorded Patient Health Questionnaire-2 Score 0 11/05/2022 Internet Access Answer Date Recorded Internet Access Q1 Yes 01/24/2025 Internet Access Q2 Not on file 01/24/2025 Sex and Gender Information Value Date Recorded [...] 08/27/2023 1:16 PM EDT Plan of Treatment Upcoming Encounters Date Type Department Care Team (Late st Contact Info) Description 02/20/2025 10:30 AM EDT Office Visit [facility] [address] [place] [address] Sera Bello ANP [address] [place] [address] Health Maintenance Due Date Last Done Comments [...] 07/22/2021 Depression Screening 11/06/2023 11/05/2022, 11/06/19 23 COVID-19 Vaccine (2 - season) 2024 06/12/2021 Lipid Panel 03/08/2024 03/08/2023, 07/22/2021 Diabetes: Hemoglobin A1C 01/04/2025 025, 08/27/2023, 05/04/2023, Additional history exists Influenza Vaccine (#1) 2025 Tobacco Screening 10/05/2025 10/05/2024 SDOH Screening 01/24/2026 01/24/2025 DTaP/Tdap/Td Vaccines (2 - Td or Tdap) [...] Procedure Name Priority Date/Time Associated Diagnosis Comments US ABDOMEN LIMITED Routine 01/20/2025 1: 29 PM EDT HIGH SENSITIVITY TROPONIN I Routine 01/20/2025 11:14 AM EDT COMPREHENSIVE METABOLIC PANEL Routine 01/20/2025 10:21 AM EDT XR CHEST 2 VIEWS Routine 01/20/2025 9:31 AM EDT VENOUS BLOOD GAS Routine 01/20/2025 9:30 AM EDT B TYPE NATRIURETIC PEPTIDE (BNP) Routine 01/20/2025 9:24 AM EDT HIGH SENSITIVITY TROPONIN I Routine 01/20/2025 9:24 AM EDT PROTHROMBIN TIME-INR Routine 01/20/2025 9:24 AM EDT CBC WITH AUTO DIFFERENTIAL Routine 01/20/2025 9:24 AM EDT SARS COV2/INFLUENZA A/B AND RSV RNA QL NAAT Routine 01/20/2025 9:24 AM EDT DRUG MONITOR, PANEL 1, SCREEN, URINE Routine [...] Recently Relevant to Health Maintenance Results * US Abdomen Limited (01/20/2025 1:29 PM EDT) Anatomical Region Laterality Modality Abdomen Ultrasound 01/20/2025 1:29 PM EDT Narrative 01/20/2025 1:29 PM EDT [place] [address] Ultrasound Report Signed Patient: Jerry Sumner MR#: [id number] [birth year] : 1960 Acct:[id number] Age/Sex: 64 / M ADM Date: 01/20/25 Loc: HO.ED Attending Dr: Ordering Physician: Kristie Mace NP Date of Service: 01/20/25 Procedure(s): US abdomen limited Accession Number(s): [id number] cc: SERA BELLO PLEASURE CRAFT SAILOR; Kristie Mace NP CLINICAL HISTORY: abd distention, newly elevated LFTs US abdomen limited Comparison: None provided Findings: The visualized pancreas is normal. The liver is normal in size and echotexture. There is no intrahepatic bile duct dilatation. The common duct is 3 mm in diameter. Gallbladder wall is thickened measuring 9 mm diameter with a small amount of pericholecystic fluid. No cholelithiasis. Positive sonographic Whaley's sign. The right kidney is 11.4 cm in length. No ascites. IMPRESSION: Acute cholecystitis. This document has been electronically signed by: Monster Cortez MD on 01/20/2025 13:29:05 Dictated By: Monster Cortez MD Signed By: <Electronically signed by Monster Cortez MD in OV> 01/20/25 1329 DD/ 1329 TD/TT: 01/20/25 1329 Training Assistant: Procedure Note Donotuseinterpreter, Image - 01/20/[address] [address] Ultrasound Report Signed Patient: Jerry Sumner DMR#: [id number] [birth year] : [birth year]Acct:[id number] Age/Sex: 64 / MADM Date: 01/20/25 Loc: HO.ED Attending Dr: Ordering Physician: Kristie Mace NP Date of Service: 01/20/25 Procedure(s): US abdomen limited Accession Number(s): [id number] cc: SERA BELLO PLEASURE CRAFT SAILOR; Kristie Mace NP CLINICAL HISTORY: abd distention, newly elevated LFTs US abdomen limited Comparison: None provided Findings: The visualized pancreas is normal. The liver is normal in size and echotexture. There is no intrahepatic bile duct dilatation. The common duct is 3 mm in diameter. Gallbladder wall is thickened measuring 9 mm diameter with a small amount of pericholecystic fluid. No cholelithiasis. Positive sonographic Whaley's sign. The right kidney is 11.4 cm in length. No ascites. IMPRESSION: Acute cholecystitis. This document has been electronically signed by: Monster Cortez MD on 01/20/2025 13:29:05 Dictated By: Monster Cortez MD Signed By: <Electronically signed by Monster Cortez MD in OV> 01/20/25 1329 DD/ 1329 TD/TT: 01/20/25 1329 Training Assistant: [facility] External Provider IMG US PROCEDURES Final Result * (ABNORMAL) High Sensitivity Troponin I (01/20/2025 11:14 AM EDT) Only the most recent of3 resultswithin the time period is included. TROPONIN I HIGH SENSITIVITY 95.8(H) <3.5 - 35.0 ng/L [facility] Comment:The Sosa high sens itivity Troponin-I results should beused in conjunction with other diagnostic information suchas ECG, clinical observations and information, and patientsymptoms to aid in the diagnosis of MN. 01/20/2025 11:1 4 AM EDT 01/20/2025 11:18 AM EDT us Generic External Data Provider LAB BLOOD ORDERAB LES Final Result [facility] [address] [place] [address] [phone] * (ABNORMAL) Comprehensive Metabolic Panel (01/20/2025 10:21 AM EDT) Sodium 139 135 - 145 mmol/L [facility] Potassium 4.7 3.3 - 5.1 mmol/L [facility] Chloride 96 96 - 108 mmol/L [facility] Carbon Dioxide 33(H) 22 - 29 mmol/L [facility] Anion Gap 15 12 - 20 [facility] Urea Nitrogen (BUN) 50(H) 9 - 16 mg/dL [facility] Creatinine, Serum 1.42(H) 0.5 - 1.4 mg/dL [facility] Creatinine Clr Calc Pharmacy 61.5 [facility] Comment:eGFR (calculated fro m the MDRD study equation) and eCrCl(calculated from the Cockcroft-Gault equation) are based ondifferent parameters and may not yield comparable results.If eCrCl result is absurd, please check patient'sheight/weight. Estimated Glomerular Filt Rate 50 [facility] Comment:Chronic Kidney Disea se: Estimated GFR < 60 mL/min/1.00z5Lrfaie Kidney Disease: Estimated GFR < 15 mL/min/1.73m2 Glucose 151(H) 60 - 115 mg/dL [facility] Calcium 9.6 8.4 - 10.2 mg/dL [facility] Bilirubin, Total 0.6 0.0 - 1.0 mg/dL [facility] Aspartate Amino Transferase 126(H) 5 - 37 U/L [facility] Alanine Aminotransferase 113(H) 0 - 40 U/L [facility] Total Protein 7.5 6.5 - 8.0 g/dL [facility] Albumin Level 3.7 3.5 - 5.0 g/dL [facility] Alkaline Phosphatase 251(H) 39 - 117 U/L [facility] 01/20/2025 10:2 1 AM EDT 01/20/2025 10:23 AM EDT us Generic External Data Provider LAB BLOOD ORDERAB LES Final Result Performing Organization Address City/State/[facility] Co de Phone Number [facility] [address] [place] [phone] * XR Chest 2 Views (01/20/2025 9:31 AM EDT) Anatomical Region Laterality Modality Chest Radiographic Thu ging 01/20/2025 9:31 AM EDT Narrative 01/20/2025 9:32 AM EDT [address] [address] XRay Report Signed Patient: Jerry Sumner MR#: [id number] [birth year] : 1960 Acct:[id number] Age/Sex: 64 / M ADM Date: 01/20/25 Loc: .ED Attending Dr: Ordering Physician: Kristie Mace NP Date of Service: 01/20/25 Procedure(s): XR chest 2V Accession Number(s): [id number] cc: SERA BELLO PLEASURE CRAFT SAILOR; Kristie Mace NP CLINICAL HISTORY: dyspnea 2 view chest x-ray Comparison: 01/17/2025 Findings: No consolidation or effusion. Redemonstration of cardiomegaly and pulmonary vascular congestion. No acute fracture. IMPRESSION: Redemonstration of cardiomegaly and pulmonary vascular congestion. This document has been electronically signed by: Celsa Saldivar MD on 01/20/2025 09:31:06 Dictated By: Celsa Saldivar MD Signed By: <Electronically signed by Celsa Saldivar MD in OV> 01/20/[address] DD/ 0 TD/TT: 01/20/25930 Training Assistant: Procedure Note Donotuseinterpreter, Image - 01/20/[address] [address] XRay Report Signed Patient: Jerry Sumner DMR#: [id number] 66 : 1960cct:[id number] Age/Sex: 64 / MADM Date: 01/20/25 Loc: .ED Attending Dr: Ordering Physician: Kristie Mace NP Date of Service: 01/20/25 Procedure(s): XR chest 2V Accession Number(s): [id number] cc: SERA BELLO PLEASURE CRAFT SAILOR; Kristie Mace PLEASURE CRAFT SAILOR CLINICAL HISTORY: dyspnea 2 view chest x-ray Comparison: 01/17/2025 Findings: No consolidation or effusion. Redemonstration of cardiomegaly and pulmonary vascular congestion. No acute fracture. IMPRESSION: Redemonstration of cardiomegaly and pulmonary vascular congestion. This document has been electronically signed by: Celsa Saldivar MD on 01/20/2025 09:31:06 Dictated By: Celsa Saldivar MD Signed By: <Electronically signed by Celsa Saldivar MD in OV> 01/20/25930 DD/ 0 TD/TT: 01/20/25930 Training Assistant: [facility] External Provider IMG XR PROCEDURES Final Result * (ABNORMAL) VENOUS BLOOD GAS (01/20/2025 9:30 AM EDT) VBG pH 7.35 7.32 - 7.43 [facility] Comment:METER #: [id number] additional_comment: Cb jeronimoj VBG PCO2 65 mmHg [facility] Comment:METER #: [id number] additional_comment: Cb jeronimoj VBG PO2 92 mmHg [facility] Comment:METER #: [id number] additional_comment: Cb jeronimoj VBG Base Excess 8.8 mmol/L [facility] Comment:METER #: [id number] additional_comment: Cb jeronimoj VBG HCO3 37(H) 22 - 26 mmol/L [facility] Comment:METER #: [id number] additional_comment: Cb jeronimoj O2 Sat, Abisai 96.0 % [facility] Comment:METER #: [id number] additional_comment: Yobani moreira 01/20/2025 9:30 AM EDT 01/20/2025 9:38 AM EDT Generic External Data Provider LAB BLOOD ORDERAB LES Final Result Performing Organization Address [facility] Co de Phone Number [facility] [address] [place] [phone] * SARS-CoV-2 RNA, Influenza A/B, and RSV RNA, Ql NAAT (01/20/2025 9:24 AM EDT) [facility] Influenza A PCR NEGATIVE Negative [facility] Influenza B PCR NEGATIVE Negative [facility] Resp Syncy Virus RNA Qual PCR NEGATIVE Negative [facility] SARS COV2 PCR NEGATIVE Negative [facility] Comment:All test results mus t be correlated with clinical findings.Negative results do not preclude SARS-CoV2, influenza Avirus, influenza B virus and/or RSV infectionand should not be used as the sole basis for treatment orother patient management decisions. Negative results must becombined with clinical observations, patient history, andepidemiological information.This test has not been evaluated for monitoring treatment ofinfection.This test has been authorized by the FDA under an EmergencyUse Authorization (EUA) for use by authorized laboratories.Testing performed on the [facility] GeneXpert utilizingreal-time RT-PCR.All SARS CoV2 and positive influenza A/B results arereported to [facility]. 01/20/2025 9:24 AM EDT 01/20/2025 9:30 AM EDT Generic External Data Provider LAB MICROBIOLOGY - GENERAL ORDERABLES Final Result Performing Organization Address [facility] Co de Phone Number [facility] [address] [place] [phone] * CBC auto differential (01/20/2025 9:24 AM EDT) White Blood Count 6.7 4.8 - 10.8 X10*3/uL [facility] Red Blood Count 4.78 4.60 - 5.80 X10*6/uL [facility] Hemoglobin 14.9 14.0 - 18.0 g/dl [facility] Hematocrit 45.1 42.0 - 52.0 % [facility] Mean Corpuscular Volume 94.4 80.0 - 98.0 fL [facility] Mean Corpuscular Hemoglobin 31.2 27.0 - 33.0 pg [facility] Mean Corpuscular HGB Conc 33.0 31.0 - 36.0 g/dl [facility] Red Cell Distribution Width 14.5 11.0 - 16.0 % [facility] Platelet Count 253 160 - 400 X10*3/uL [facility] Mean Platelet Volume 9.5 9.4 - 12.4 fL [facility] Neutrophils Percent Auto 62.8 45 - 73 % [facility] Imm Gran Pct Auto 0.3 0.0 - 0.4 % [facility] Lymphocytes Percent Auto 28.0 20 - 40 % [facility] Monocytes Percent Auto 7.9 2 - 11 % [facility] Eosinophils Percent Auto 0.6 0 - 4 % [facility] Basophils Percent Auto 0.4 0 - 2 % [facility] NRBC Pct Auto 0.0 0.0 - 0.2 /100WBC [facility] Neutrophils Absolute Auto 4.2 2.0 - 8.3 x10*3/uL [facility] Imm Gran Abs Auto 0.02 0.00 - 0.03 X10*3/uL [facility] Lymphocytes Absolute Auto 1.9 1.2 - 4.9 X10*3/uL [facility] Monocytes Absolute Auto 0.5 0.1 - 1.2 X10*3/uL [facility] Eosinophils Absolute Auto 0.0 0.0 - 0.4 X10*3/uL [facility] Basophils Absolute Auto 0.0 0.0 - 0.2 X10*3/uL [facility] NRBC Abs Auto 0.000 0.0 - 0.012 X10*3/uL [facility] 01/20/2025 9:24 AM EDT 01/20/2025 9:28 AM EDT Generic External Data Provider LAB BLOOD ORDERAB LES Final Result Performing Organization Address City/[facility]/ZIP Co de Phone Number [facility] [address] [place] [phone] * (ABNORMAL) Prothrombin Time-INR (01/20/2025 9:24 AM EDT) Prothrombin Time 14.3(H) 10.9 - 12.4 SEC [facility] INTERNATIONAL NORM RATIO 1.2(H) 0.9 - 1.1 [facility] Comment:INTERNATIONAL NORMAL IZED RATIO (INR) REFERENCE RANGES Reference RangeFor patients not on anticoagulant therapy: 0.9 - 1.1INR ranges for oral anticoagulanttherapy:For prevention and treatment of venous thrombosis and pulmonary embolism: 2.0 - 3.0For acute myocardial infarction with aspirin therapy: 2.0 - 3.0For acute myocardial infarction without aspirin therapy: 3.0 - 4.0For patients with mechanical prosthetic heart valves: 2.5 - 3.5 01/20/2025 9:24 AM EDT 01/20/2025 9:28 AM EDT us Generic External Data Provider LAB BLOOD ORDERAB LES Final Result Performing Organization Address City/[facility]/ZIP Co de Phone Number [facility] [address] [place] [phone] * (ABNORMAL) B Type Natriuretic Peptide (BNP) (01/20/2025 9:24 AM EDT) B Type Natriuretic Peptide 2,398(H) <100 pg/mL [facility] 01/20/2025 9:24 AM EDT 01/20/2025 9:42 AM EDT us Generic External Data Provider LAB BLOOD ORDERAB LES Final Result [facility] [address] [place] [phone] [phone] * (ABNORMAL) Drug Monitoring, Panel 1, Screen, Urine (12/29/2024 12:05 PM EDT) Opiate Screen Urine Not Detected Not Detect [facility] Comment:Opiate cut-off is 30 0 ng/mL.Positive results are unconfirmed and should not be used fornon-medical purposes. Barbiturates, Urine Not Detected Not Detect [facility] Comment:Barbiturate cut-off is 200 ng/mL.Positive results are unconfirmed and should not be used fornon-medical purposes. Phencyclidine Screen Urine Not Detected Not Detect [facility] Comment:Phencyclidine cut-of f is 25 ng/mL.Positive results are unconfirmed and should not be used fornon-medical purposes. Amphetamine Screen Urine Not Detected Not Detect [facility] Comment:Amphetamine cut-off is 1000 ng/mL.Positive results are unconfirmed and should not be used fornon-medical purposes. Benzodiazepines Screen Urine Not Detected Not Detect [facility] Comment:Benzodiazepine cut-o ff is 200 ng/mL.Positive results are unconfirmed and should not be used fornon-medical purposes. Cocaine Screen Urine POSITIVE(A) Not Detect [facility] Comment:Cocaine cut-off is 3 00 ng/mL.Positive results are unconfirmed and should not be used fornon-medical purposes. Cannabinoid Screen Urine Not Detected Not Detect [facility] Comment:Cannabinoid cut-off is 50 ng/mL.Positive results are unconfirmed and should not be used fornon-medical purposes. Methadone Screen, Urine Not Detected Not Detect ng/mL [facility] Comment:Methadone cut-off is 300 ng/mL.Positive results are unconfirmed and should not be used fornon-medical purposes. FENTANYL URINE Not Detected Not Detect [facility] Comment:Fentanyl cut-off is 1 ng/mL.Positive results are unconfirmed and should not be used fornon-medical purposes. Oxycodone Urine Screen Not Detected Not Detect ng/mL [facility] Comment:Oxycodone cut-off is 100 ng/mL.Positive results are unconfirmed and should not be used fornon-medical purposes. Buprenorphine Screen Not Detected Not Detect ng/mL [facility] Comment:Buprenorphine cut-of f is 5 ng/mL.Positive results are unconfirmed and should not be used fornon-medical purposes. 12/29/2024 12:0 5 PM EDT 12/29/2024 12:24 PM EDT Generic External Data Provider LAB URINE ORDERAB LES Final Result Performing Organization Address [facility] Co de Phone Number [facility] [address] [place] [phone] * (ABNORMAL) Glucose, Whole Blood (12/29/2024 11:58 AM EDT) Glucose, Whole Blood 129(H) 60 - 115 mg/dL [facility] Comment:METER #: [id number] 12/29/2024 11:5 8 AM EDT 12/29/2024 12:18 PM EDT Generic External Data Provider LAB BLOOD ORDERAB LES Final Result Performing Organization Address [facility] Co de Phone Number [facility] [address] [place] [phone] * XR Chest 1 View (12/29/2024 6:16 AM EDT) Anatomical Region Laterality Modality Chest Radiographic Thu ging 12/29/2024 6:16 AM EDT Narrative 12/29/2024 8:03 AM EDT [address] [address] XRay Report Signed Patient: Jerry Sumner MR#: [id number] [birth year] : 1960 Acct:[id number] Age/Sex: 64 / M ADM Date: 12/29/24 Loc: .ED Attending Dr: Ordering Physician: Garret Prieto DO Date of Service: 12/29/24 Procedure(s): XR chest 1V Accession Number(s): [id number] cc: SERA BELLO NP; Garret Prieto DO EXAMINATION: XR CHEST CLINICAL [...] 12/29/24 0800 DD/ 0616 TD/TT: 12/29/24 0726 Training Assistant: Procedure Note Donotuseinterpreter, Image - 12/29/2024 [place] [address] XRay Report Signed Patient: Jerry uSmner DMR#: [id number] 66 : 1960cct:[id number] Age/Sex: 64 / MADM Date: 12/29/24 Loc: .ED Attending Dr: Ordering Physician: Garret Prieto DO Date of Service: 12/29/24 Procedure(s): XR chest 1V Accession Number(s): [id number] cc: SERA BELLO NP; Garret Prieto DO EXAMINATION: XR CHEST CLINICAL [...] 12/29/24 0800 DD/ 0616 TD/TT: 12/29/24 0726 Training Assistant: [facility] External Provider IMG XR PROCEDURES Final Result * (ABNORMAL) POCT HGB A1C (10/05/2024 3:30 PM EDT) Pathologist [facility] Hemoglobin A1C 7.2(A) 4.0 - 6.0 % QC Media Lot # [id number] Lot# Expiration Date Blood 10/05/2024 3:30 PM EDT [facility] POINT OF CARE TEST ENTER/EDIT OR DERABLES Final Result * (ABNORMAL) Lipid Panel, Standard (03/08/2023 1:17 PM EDT) Triglycerides 229(H) <150 mg/dL [facility] Comment:Desirable Triglyceri de: less than 150 mg/dLBorderline High Triglyceride 150-199 mg/dLHigh Triglyceride: 200-499 mg/dLVery High Triglyceride: greater than or equal to 5OO mg/dL Cholesterol 281(H) <200 mg/dL [facility] Comment:Desirable Cholestero l: less than 200 mg/dLBorderline High Cholesterol: 200-239 mg/dLHigh Cholesterol: greater than 239 mg/dL LDL Cholesterol Calculated 182(H) <100 mg/dL [facility] Comment:Desirable LDL: less than 100 mg/dLNear Optimal/Above Optimal LDL: 110- 129 mg/dLBorderline High LDL: 130-159 mg/dLHigh LDL: 160-189 mg/dLVery High LDL: greater than or equal to 190 mg/dL HDL Cholesterol 54 >40 mg/dL [facility] Comment:Desirable HDL: great er than 40 mg/dL Note: This HDL assay may give artificially low results in patients with liver disease. 03/08/2023 1:17 PM EDT 03/08/2023 1:17 PM EDT Generic External Data Provider LAB BLOOD ORDERAB LES Final Result Performing Organization Address [facility]/ZIP Co de Phone Number [facility] [address] [place] [phone] * HEPATITIS C AB W/REFL TO HCV RNA, QN, PCR (07/22/2021 4:23 PM EST) Pathologist [facility] HEPATITIS C ANTIBODY NON-REACT [facility] NON-REACT [facility] INDEX 0.05 <1.00 [facility] Comment: HCV antibody was non-reactive. There is no laboratory evidence of HCV infection. In most cases, no further action is required. However, if recent HCV exposure is suspected, a test for HCV RNA (test code 41058) is suggested. For additional information please refer to http://education.[employer]/faq/OQA84f8 (This link is being provided for informational/ educational purposes only.) 07/22/2021 4:23 PM EST us Sera Bello ANP HISTORICAL/NON ORDERABLE LABS Fi nal Result Performing Organization Address [facility] Co de Phone Number [facility] [address] * (ABNORMAL) ALBUMIN, RANDOM URINE W/CREATININE (07/22/2021 4:23 PM EST) Microalbumin Urine 74.2 See Note: mg/dL [facility] Comment: Reference Range: Reference Range [...] Creatinine, Urine 176 20 - 320 mg/dL [facility] 07/22/2021 4:23 PM EST us Sera Bello ANP LAB URINE ORDERABLES Final Resul t Performing Organization Address [facility] de Phone Number [facility] [address] * HIV 1/2 ANTIGEN/ANTIBODY,FOURTH GENERATION W/RFL (07/22/2021 4:23 PM EST) HIV-1/2 ANTIGEN AND ANTIBODIES, 4TH GENERATION W/ REFLEX NON-REACT EMMA NON-REACT EMMA [facility] Comment: HIV-1 antigen and HIV-1/HIV-2 [...] purpose. For additional information please refer to http://education.[employer]/faq/TIA955 (This link is being provided for informational/ educational purposes only.) The performance of this assay has not been clinically validated in patients less than 2 years old. 07/22/2021 4:23 PM EST Sera Bello ANP LAB BLOOD ORDERABLES Final Resul t Performing Organization Address [facility] Co de Phone Number [facility] [address] from Last 3 Months or Most Recently Relevant to Health Maintenance Insurance [address] [place], [place] [address] Care Teams Backend Developer Relationship Specialty Start Date End Date eSra Bello ANP [address] [place] [id number] PCP - General Family Medicine 05/29/21 Aguila Portillo MD [address] [place] [address] 3rd [place] [address] Cardiology 05/24/24
--- OUTSIDE RECORDS SUMMARY | 2025-02-05 21:29 | XMS_ITS | Encounter Summary ---
Author Organization [employer] Address [address] [place] [address] [address] [place] [address] Care Team Providers Care [employer] Redevelopment Site Manager Name Role Phone Veronique Gastelum Primary Care Provider [phone] Aguila Portillo MD Unavailable [phone] Encounter Details Date Type Department Care Team (Late st Contact Info) Description 06/25/2022 Orders Only [facility] [address] [place] [id number] Saritha Kelley LPN Social History Tobacco Use [...] Description 02/20/2025 10:30 AM EDT Office Visit [facility] [address] [place] [phone] Veronique Gastelum ANP [address] [place] [address] documented as of this encounter Visit Diagnoses Not on filedocumented in this encounter Care Teams [employer] Redevelopment Site Manager Relationship Specialty Start Date End Date Veronique Gastelum ANP [address] [place] [id number] PCP - General Family Medicine 05/29/21 Aguila Portillo MD [address] [place] [address] [address] [place] [address] Cardiology 05/24/24 documented as of this encounter
--- OUTSIDE RECORDS SUMMARY | 2025-02-05 21:29 | XMS_ITS | Encounter Summary ---
Author Organization [employer] Address [address] [facility] 7t [place] [address] Care Team Providers Care Prepared Foods Supervisor Name Role Phone Veronique Gastelum Primary Care Provider [phone] Aguila Portillo MD Unavailable [phone] Reason for Visit * Reason Onset Date Comments Appointment Request 12/01/2024 Encounter Details Date Type Department Care Team ([facility] Contact Info) Description 12/01/2024 Telephone [facility] [address] [place] [address] Veronique Gastelum ANP [address] [place] [address] Appointment Request Social History Tobacco Use Types Packs/Day Years [...] encounter Miscellaneous Notes * Telephone Encounter - Shaina Wild - 12/01/2024 10:11 AM EDT Tc from pt to canceled appt due to not feeling well. Pt requesting to reschedule. Contact pt at [phone] documented in this encounter Plan of Treatment Upcoming Encounters Date Type Department Care Team (Late st Contact Info) Description 02/20/2025 10:30 AM EDT Office Visit [facility] [address] [place] [address] Veronique Gastelum ANP [address] [place] [address] documented as of this encounter Visit Diagnoses Not on filedocumented in this encounter Care Teams Prepared Foods Supervisor Relationship Specialty Start Date End Date Veronique Gastelum ANP [address] [place] [phone] PCP - General Family Medicine 05/29/21 Aguila Portillo MD [address] [place] [address] 3rd [place] [address] Cardiology 05/24/24 documented as of this encounter
[2025-02-05 21:31] LABS: Cannabinoid Screen Urine Not Detected (Not Detect)
[2025-02-05 22:19] LABS: Reflex Lactate? Lactic Acid Added
[2025-02-05] MEDS: Nitroglycerin 2 % Oint 1 GM Packet 1 INCH TRANSDERMA (22:45)
--- NOTE | 2025-02-05 22:59 | PC.NURSE ---
Pt switched to CPAP from BiPAP
[2025-02-05 23:07] LABS: ~Lactic Acid-LAB USE ONLY 2.3 mmol/L (0.5-2.0)
[2025-02-05] MEDS: Furosemide 200 MG in 0.9 % Sodium Chloride 80 ML IVCONT (23:21)
[2025-02-05 23:28] LABS: Troponin-I High Sensitivity 172.8 ng/L (<3.5-35.0)
[2025-02-05 23:45] LABS: Glucose, Whole Blood 167 mg/dL (60-115)
--- NOTE | 2025-02-05 23:47 | PC.NURSE ---
Patient medicated per MAR.
[2025-02-06] VITALS (26 sets, daily range): BP systolic 43–182; BP diastolic 16–119; PULSE 133–150; RESP 19–39; TEMP 36.1–36.9; O2SAT 93–100; BMI 27.7
[2025-02-06 00:35] LABS: Reflex Lactate? 2 Y
--- NOTE | 2025-02-06 01:25 | PM.CCHP ---
History of Present Illness Date of Service: 02/06/25 Attending physician on admission: Iris Brar Chief Complaint: Dyspnea Mr. Sumner with is a 64-year-old male with history of nonischemic cardiomyopathy with EF of 15%, congestive heart failure, alcohol? dependence, cocaine abuse, hyperlipidemia, COPD, diabetes mellitus, chronic renal failure? who was brought in by EMS for hypoxia to the 70s lethargy. The patient has been admitted multiple times over the last 2 months most recently 01/20/2025 to 01/23/2025 for acute hypoxic respiratory failure due to acute on chronic heart failure with reduced EF, NSVTs, metabolic alkalosis, apical cardiac thrombus. On arrival to the emergency room, the patient's blood pressure was 145/104, heart rate 138, temp? 98.8, O2 sat 99 on BiPAP.?? Laboratory data significant for PT 15.5, INR 1.4, potassium 5.2, anion gap 21, BUN 63, creatinine 2.91, lactic acid 3.8, phosphorus 7.9, magnesium 3.0, total bilirubin 1.5, AST 157, ALT 128, alk-phos 326, troponin 157.3, BNP 2736, total protein 9.1, beta hydroxybutyrate 0.43. ?ABG 7.18 56 126 21. ? UDS positive for cocaine.? Respiratory panel negative. Imaging: CT chest revealed pneumonitis versus pulmonary edema at the bases CT abdomen and pelvis? showed hepatic steatosis, cirrhosis, small ascites, mild amount ground-glass opacity in the lung bases. ED course:? The patient received ceftriaxone 1 g, doxycycline 100 mg, furosemide 40 mg, nitroglycerin paste 1 in.? He was placed on BiPAP. Review of Systems Review of Systems: Yes all other systems are reviewed and are negative (Pt is vague) Constitutional: Constitutional: Reports no additional constitutional complaints PMFSH Past Medical History Medical History Cocaine abuse Pulmonary HTN Heart failure with reduced ejection fraction Alcohol abuse Noncompliance Asthma Smoker Tobacco abuse Chronic HFrEF (heart failure with reduced ejection fraction) Streptococcus infection, group G Hypertension RVH (right ventricular hypertrophy) Tobacco abuse Elevated troponin Bacteremia Asthma Family History Family History Mother Breast cancer Surgical History Surgical History S/P cardiac catheterization Hx of appendectomy Social History Social History Household Members: None Household Members Other:: lives alone Housing: Apartment Do you presently have visiting nurse or other home services: No Unable to assess alcohol history related to: Unable to respond Alcohol intake: current Alcohol intake frequency: 0-2 drinks per day Alcohol type: beer Comment: pt refuses assistance to BR; up ad xin Patient Tobacco Use Status: Current everyday Tobacco user Tobacco use type: Cigarette Cigarette Packs Per Day: 0.5 Cigarettes Per Day: 10.0 Years Smoked: 25 Smoked in Last 30 Days: Yes e-Cigarette/Vaping Use: Currently Using Second Hand Smoke Exposure: No Substance Use Type: Crack/Cocaine Currently Displaying Signs/Symptoms of Drug Intoxication Withdrawal: Yes Advance Directives: Yes Advance Directives on File: Yes Advance Directives Date on File: 02/27/21 Do you have a plan to hurt others: No Plan service: No Current occupational status: employed Meds Allergies Allergy/AdvReac Type Severity Reaction Status Date / Time penicillin V Allergy Severe Swollen Verified 02/05/25 20:00 face Penicillins (PENICILLINS) Allergy Severe ANGIOEDEMA Verified 02/05/25 20:00 shellfish derived (SHELLFISH Allergy Severe ANAPHYLAXIS Verified 02/05/25 20:00 DERIVED) fish derived (fish) Allergy Anaphylaxis Verified 02/05/25 20:00 seafood Allergy Anaphylaxis Verified 02/05/25 20:00 Active Medications: Current Medications Apixaban (Apixaban 5 Mg Tablet) 5 mg PO BID ELANA Dextrose (Dextrose 50 % 25 Gm/50 Ml Syringe) 25 gm IVPUSH Q15M PRN; Protocol PRN Reason: per Hypoglycemia Standing Ord. Glucose (Glucose Gel 15 Gm Gel..Gram.) 15 gm PO Q15M PRN; Protocol PRN Reason: per Hypoglycemia Standing Ord. Furosemide 200 mg/ Sodium (Chloride) 100 mls @ 5 mls/hr IVCONT .Q20H ELANA Last Admin: 02/05/25 23:21 Dose: 10 mg/hr, 5 mls/hr Nitroglycerin (Nitroglycerin/D5w) 100 mg in 250 mls @ 0 mls/hr IVCONT .Q0M [facility]; Protocol Insulin Human Lispro (Insulin Lispro 100 Unit/Ml 3 Ml Vial) 0 unit SUBCUT RQ6H [facility]; Protocol Last Admin: 02/05/25 23:44 Dose: 2 unit Home Medications ?Medication ?Instructions ?Recorded ?Confirmed ?Last Taken ?Type metformin 500 mg tablet 500 mg PO BID 10/22/21 02/06/25 01/16/25 History atorvastatin 40 mg tablet 40 mg PO DAILY 04/07/24 02/06/25 01/16/25 History albuterol sulfate 90 mcg/actuation 2 inh inhalation Q6H PRN shortness 10/06/24 02/06/25 10/05/24 History breath activated powder of breath or wheezing inhaler,sensor furosemide 40 mg tablet 40 mg PO BID 10/06/24 02/06/25 01/16/25 History ergocalciferol (vitamin D2) 1,250 1,250 mcg PO MO@0900 12/29/24 02/06/25 01/10/25 History mcg (50,000 unit) capsule aspirin 81 mg tablet,delayed 81 mg PO DAILY 01/20/25 02/06/25 Unknown History release fluticasone 250 mcg-salmeterol 50 1 ea inhalation BID 01/20/25 02/06/25 Unknown History mcg/dose blistr powdr for inhalation tiotropium bromide 2.5 2 puff inhalation DAILY 01/20/25 02/06/25 Unknown History mcg/actuation mist for inhalation (Spiriva Respimat) Physical Exam Vital Signs: Vital Signs: Last Vital Signs Temp 97.3 F 02/05/25 23:43 Pulse 136 H 02/05/25 23:43 Resp 35 H 02/06/25 00:06 BP 123/84 02/05/25 23:43 Pulse Ox 100 02/05/25 23:43 O2 Del Method BiPAP 02/05/25 23:43 BMI result Body Mass Index 27.9 Const: General: no acute distress and ill appearing Orientation/consciousness: patient oriented x3 (answering appropriately.) HEENT: Head: Yes normocephalic and Yes atraumatic General nose exam: Normal external nose present (Nares patent, septum midline, sinuses nontender bilaterally.) Throat: Yes other (No erythema, no exudate.) Neck: Neck: Yes supple (no thyromegaly, trachea midline.) and Yes JVD Resp: Effort & Inspection: tachypneic Auscultation: rhonchi (throughout) Cardio: Jugular venous distension: JVD Rate: tachycardic Rhythm: regular rhythm Heart sounds: no gallops, no murmurs and no rubs Peripheral pulses: Peripheral pulses 2+ throughout GI: Palpation (GI): Firmness to palpation present (GI), nontender, not rigid and No Rebound tenderness present Auscultation: normal bowel sounds Skin: General skin exam: no rashes or lesions noted Neuro: General: patient oriented x3 (answering appropriately.) Extrem: General: Yes full ROM and Yes capillary refill normal Psych: Affect: normal affect Attitude: cooperative Results Labs 02/06/25 05:37 02/06/25 05:37 Labs: Laboratory Results - last 24 hr 02/05/25 02/05/25 02/05/25 20:03 20:11 20:19 MCV 94.8 MCH 31.3 MCHC 33.1 RDW 15.8 Plt Count 204 MPV 9.9 Immature Gran % (Auto) Cancelled Neut % (Auto) Cancelled Lymph % (Auto) Cancelled Adams % (Auto) Cancelled Eos % (Auto) Cancelled Baso % (Auto) Cancelled Lymph # (Auto) Cancelled Adams # (Auto) Cancelled Eos # (Auto) Cancelled Baso # (Auto) Cancelled Abs Immat Gran (auto) Cancelled Absolute Neuts (auto) Cancelled Absolute Nucleated RBC 0.000 Nucleated RBC % (auto) 0.0 Neutrophils % (Manual) 56 Band Neutrophils % 2 L Lymphocytes % (Manual) 10 L Atypical Lymphs % (Man) 11 H Monocytes % (Manual) 18 H Basophils % (Manual) 3 H Abs Neuts (Manual) 3.0 Lymphocytes # (Manual) 0.5 L Atyp Lymphs # (Manual) 0.6 Monocytes # (Manual) 0.9 Basophils # (Manual) 0.2 Platelet Estimate NORMAL Large Platelets PRESENT Plt Morphology Comment NOTED RBC Morphology NOTED Polychromasia 2+ (3-5) Macrocytosis 1+ (5-14) Acanthocytes (Spur) 1+ (0-2) Smear Tech's Comments MANUAL DIFF PT 15.5 H INR 1.4 H O2 Saturation 98.0 ABG pH at Pt Temp 7.18 L* ABG pCO2 at Pt Temp 56 H ABG pO2 at Pt Temp 126 H ABG HCO3 21 L ABG Base Excess (Actual) -7.5 VBG pH 7.12 L* VBG pCO2 69 VBG pO2 44 VBG HCO3 23 VBG O2 Saturation 54.0 VBG Base Excess -7.4 Anion Gap 21 H Estim Creat Clear Calc 29.5 Estimated GFR 22 POC Glucose Random Glucose 225 H Lactic Acid 3.8 H* Lactic Acid F/U @ 2Hr Calcium 9.8 Phosphorus 7.9 H Magnesium 3.0 H Total Bilirubin 1.5 H AST 157 H ALT 128 H Alkaline Phosphatase 326 H B-Natriuretic Peptide 2736 H Total Protein 9.1 H Albumin 4.8 Beta-Hydroxybutyrate 0.43 H Urine Opiates Screen Ur Buprenorphine Scrn Ur Oxycodone Screen Urine Methadone Screen Urine Fentanyl Screen Ur Barbiturates Screen Ur Phencyclidine Scrn Ur Amphetamines Screen U Benzodiazepines Scrn Urine Cocaine Screen U Marijuana (THC) Screen 02/05/25 02/05/25 02/05/25 21:03 22:31 23:39 MCV MCH MCHC RDW Plt Count MPV Immature Gran % (Auto) Neut % (Auto) Lymph % (Auto) Adams % (Auto) Eos % (Auto) Baso % (Auto) Lymph # (Auto) Adams # (Auto) Eos # (Auto) Baso # (Auto) Abs Immat Gran (auto) Absolute Neuts (auto) Absolute Nucleated RBC Nucleated RBC % (auto) Neutrophils % (Manual) Band Neutrophils % Lymphocytes % (Manual) Atypical Lymphs % (Man) Monocytes % (Manual) Basophils % (Manual) Abs Neuts (Manual) Lymphocytes # (Manual) Atyp Lymphs # (Manual) Monocytes # (Manual) Basophils # (Manual) Platelet Estimate Large Platelets Plt Morphology Comment RBC Morphology Polychromasia Macrocytosis Acanthocytes (Spur) Smear Tech's Comments PT INR O2 Saturation ABG pH at Pt Temp ABG pCO2 at Pt Temp ABG pO2 at Pt Temp ABG HCO3 ABG Base Excess (Actual) VBG pH VBG pCO2 VBG pO2 VBG HCO3 VBG O2 Saturation VBG Base Excess Anion Gap Estim Creat Clear Calc Estimated GFR POC Glucose 167 H Random Glucose Lactic Acid Lactic Acid F/U @ 2Hr 2.3 H* Calcium Phosphorus Magnesium Total Bilirubin AST ALT Alkaline Phosphatase B-Natriuretic Peptide Total Protein Albumin Beta-Hydroxybutyrate Urine Opiates Screen Not Detected Ur Buprenorphine Scrn Not Detected Ur Oxycodone Screen Not Detected Urine Methadone Screen Not Detected Urine Fentanyl Screen Not Detected Ur Barbiturates Screen Not Detected Ur Phencyclidine Scrn Not Detected Ur Amphetamines Screen Not Detected U Benzodiazepines Scrn Not Detected Urine Cocaine Screen POSITIVE H U Marijuana (THC) Screen Not Detected Assessment and Plan (1) Congestive heart failure: Qualifiers: Heart failure chronicity: acute on chronic Heart failure type: systolic Qualified Code(s): I50.23 - Acute on chronic systolic (congestive) heart failure Status: Acute (2) Acute respiratory acidosis: Status: Acute (3) Cardiomyopathy: Qualifiers: Cardiomyopathy type: unspecified Qualified Code(s): I42.9 - Cardiomyopathy, unspecified Status: Acute (4) RVH (right ventricular hypertrophy): Status: Acute (5) Acute on chronic renal failure: Qualifiers: Acute renal failure type: unspecified Chronic kidney disease stage: unspecified stage Qualified Code(s): N17.9 - Acute kidney failure, unspecified; N18.9 - Chronic kidney disease, unspecified Status: Acute (6) Transaminitis: Status: Acute (7) Cocaine abuse: Status: Acute (8) Alcohol use: Status: Acute Plan 64-year-old male with history of nonischemic cardiomyopathy with EF of 15%, congestive heart failure, alcohol? dependence, cocaine abuse, hyperlipidemia, COPD, diabetes mellitus, chronic renal failure admitted with cardiomyopathy, acute on chronic HFrEF, acute respiratory failure, acute on chronic renal failure. Neuro:? No acute issues. Cardiac:? Underlying cardiomyopathy, HFrEF.? BNP elevated. Lasix drip. Pulmonary: Acute hypoxic respiratory failure requiring BiPAP.? Empiric antibiotics given in the ER. Continue? to diurese. Wean off NIVVP as tolerated.? Renal: Acute on chronic renal failure. Monitor renal indices and urine output. Endo: Underlying diabetes mellitus.? SS insulin per protocol. GI: ? Transaminitis. Hepatic steatosis, cirrhosis, ascites seen on CT. Continue to trend LFTs. ID: Pneumonitis versus pulmonary edema noted on CT. Presentation suggestive of CHF over sepsis. Empiric antibiotics in ED.? Heme/Onc:? No acute issues. Psych: Underlying substance use disorder. UDS positive for cocaine. Consult addiction medicine. Miscellaneous:? No acute issues. Prophylaxis: Eliquis PPI Diet: NPO Patient's care was discussed in detail with Dr. Brar.? She is aware of all the above as well as the plan of care for this patient. Total time managing care of this patient today: 60 minutes.
[2025-02-06 01:34] LABS: ~Lactic Acid-LAB USE ONLY 1.9 mmol/L (0.5-2.0)
[2025-02-06] MEDS: Nitroglycerin/D5W 100 MG/250 ML INFUS..BTL IVCONT (01:39)
[2025-02-06 05:44] LABS: VBG HCO3 22 mmol/L (22-26); VBG O2 % Saturation 94.0 %; Venous Blood Gas Refer to POC result
[2025-02-06 05:55] LABS: Hematocrit 46.3 % (42.0-52.0); Hemoglobin 15.5 g/dl (14.0-18.0); Imm Gran Abs Auto 0.04 X10*3/uL (0.00-0.03); Imm Gran Pct Auto 0.7 % (0.0-0.4); Lymphocytes Absolute Auto 1.1 X10*3/uL (1.2-4.9); MANUAL DIFF FLAG SCAN; Mean Corpuscular HGB Conc 33.5 g/dl (31.0-36.0); Mean Corpuscular Hemoglobin 31.1 pg (27.0-33.0); Mean Corpuscular Volume 93.0 fL (80.0-98.0); NRBC Abs Auto 0.000 X10*3/uL (0.0-0.012); NRBC Pct Auto 0.0 /100WBC (0.0-0.2); Platelet Count 172 X10*3/uL (160-400); Red Blood Count 4.98 X10*6/uL (4.60-5.80); SCAN SMEAR FLAG 1; White Blood Count 5.8 X10*3/uL (4.8-10.8)
[2025-02-06 05:55] LABS: Glucose, Whole Blood 184 mg/dL (60-115)
--- NOTE | 2025-02-06 06:00 | PC.ADMIT ---
Patient admitted to unit on 02/06/25 in early hours of the morning from ED. Patient is alert and oriented x 3 at baseline, however having some forgetfulness at this time. Patient is impulsive, In room camera placed for closer monitoring. Sinus tach on monitor, consistently at 138-140. He continues on BIPAP, tolerating well. Often attempting to rip off mask to ask for water, even though he is NPO. IUC in place, patent and draining olivia urine.? Lasix gtt running at 10mg/hr. Bed at lowest setting, call newell in place.
[2025-02-06 06:19] LABS: Albumin Level 4.0 g/dL (3.5-5.0); Anion Gap 19 (12-20); Blood Urea Nitrogen 69 mg/dL (9-16); Calcium 9.6 mg/dL (8.4-10.2); Carbon Dioxide 21 mmol/L (22-29); Chloride 101 mmol/L (96-108); Creatinine Clr Calc Pharmacy 32.0; Estimated Glomerular Filt Rate 26; Magnesium 2.8 mg/dL (1.6-2.6); Potassium 5.9 mmol/L (3.3-5.1); Sodium 135 mmol/L (135-145)
--- NOTE | 2025-02-06 07:00 | CA_ITS ---
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 The visually estimated ejection fraction is <10%. Apical thrombus noted, 1.2 x 1cm. Findings Procedure Information Contrast agent, definity, is being given per protocol without apparent complications. Left Ventricle Severely increased left ventricular cavity size. There is normal left ventricular wall thickness. The left ventricular systolic function is severely decreased. The visually estimated ejection fraction is <10%. There is severe global hypokinesis. Apical thrombus noted, 1.2 x 1cm. Venous The inferior vena cava is dilated and collapses less than 50% with inspiration. Pericardium/Pleural There is no evidence of pericardial effusion. Prior Study Comparison Changes noted compared to prior study dated: 01/22/2025. LVEF lower than prior study. Measurements 2D Linear Measurements IVSd: 0.88 0.6-0.9/0.6-1.0 cm LVIDd: 6.98 3.9-5.3/4.2-5.9 cm LVIDd Index: 3.32 2.4-3.2/2.2-3.1 cm/m2 LVIDs: 6.45 2.0-3.6 cm LVPWd: 0.83 0.7-1.1 cm LV Mass: 329.05 67-162/88-224 g LV Mass Index: 156.69 43-95/49-115 g/m2 2D Systolic Function EF 4C: 13.70 >55% EF 2C: 7.26 >55% EF BiP: 11.10 >55% Aortic Valve AoV Pk Kelvin: 1.12 AoV Mn Kelvin: 0.76 AoV VTI: 0.17 AoV Pk Grad: 5.00 Aov Mn Grad: 3.00 LVOT LVOT Pk Kelvin: 0.50 LVOT Mn Kelvin: 0.29 LVOT VTI: 0.06 LVOT Pk Grad: 1.00 LVOT Mn Grad: 0.00 Tricuspid Valve TR Pk Kelvin: 3.09 TR Pk Grad: 38.00 Updated in Other Vendor System with Status of Final Aguila Portillo MD electronically signed on 02/06/2025 11:15:04 AM with status of Final
--- NOTE | 2025-02-06 07:37 | PHA.MEDREC ---
Pharmacy Consult ? Medication Reconciliation Pharmacy has completed the medication reconciliation. Pt was just here on 01/23/25, utilized discharge list and claims to verify. He was started on Eliquis and Acetazolamide on last visit, but it hasn't been picked up yet.
--- NOTE | 2025-02-06 07:44 | ECG_ITS ---
Test Reason : rtyhum change Blood Pressure : */* mmHG Vent. Rate : 140 BPM Atrial Rate : 140 BPM P-R Int : 168 ms QRS Dur : 102 ms QT Int : 280 ms P-R-T Axes : * -74 86 degrees QTcB Int : 427 ms Probable atrial flutter Left axis deviation Anteroseptal infarct (cited on or before 06-Oct-2024) Abnormal ECG When compared with ECG of 05-Feb-2025 20:27, No significant changes seen Referred By: Iris Brar Electronically Signed By: BERNARD GLASER
--- NOTE | 2025-02-06 08:19 | P.EN_ITS ---
Event Note Date of Service: 02/06/25 Event Note: Mr. Sumner is a 64 Y M w/ COPD, hyperlipidemia, diabetes mellitus type II, polysubstance misuse, c/b non-ischemic cardiomyopathy, EF 15%, c/b cardiac thrombus, and multiple recent admissions for CHF exacerbations, presenting to ED on 02/05 w/ dyspnea consistent w/ prior CHF exacerbations, necessitating non- invasive ventilation; of note, 02/06 AM, patient w/ persistent dyspnea and nausea; furosemide gtt increased, cardiology re-engaged; upon prompting, patient endorses alcohol use, characterized by 1 pint every other day, last alcohol 02/04; CIWA protocol initiated; goals of care discussed, after which Mr. Sumner endorsed full code; Mr. Sumner endorsed mode as HCP, though requests she not be given updates unless he is incapacitated Time Spent With Patient Time: Total time managing care of this patient today ____ minutes.
--- NOTE | 2025-02-06 08:48 | PC.RT ---
Pt removed from bipap by RN seondary c/o nausea. Placed pm 5L oxymask. Pt noted tachycardic 140, sat 82% with poor pleth. Pt increased 15L on oxymask, improved pleth noted O2 titrated back to 5L with sat of 90%. EKG done, RN and aware.
--- NOTE | 2025-02-06 09:22 | PM.EVENT ---
Event Note Date of Service: 02/06/25 Event Note: of note, patient with new hypotension t0 40s/20s, started on norepinephrine gtt, phenylephrine bolus; patient appeared in extremis; in preparation for intubation, patient reports no longer wish for intubation, though maintains wish for CPR; I encouraged patient to allow me to communicate with daughter given his worsening clinical status Time Spent With Patient Time: Total time managing care of this patient today ____ minutes.
--- NOTE | 2025-02-06 09:25 | PC.NURSE ---
Addendum entered by Guanakito Kelley RN 02/06/25 10:52: pt is now obtunded requiring a sternal rub to awaken. pt is unable to stay awake and is not following commands. md informed Addendum entered by Guanakito Kelley RN 02/06/25 10:25: report given to [facility] Jimenez Original Note: pt BP dropped suddenly around 0900 and experienced increased weakness and lethargy. MD informed SBP 40-50s. Levo started and meds administered as ordered.
[2025-02-06] MEDS: PHENobarbitaL sodium 130 MG/ML IM ONCE 301 MG IM (09:39)
--- NOTE | 2025-02-06 09:40 | P.CONCA_ITS ---
History of Present Illness History of Present Illness Date of Service: 02/06/25 Chief complaint: Dyspnea Narrative: This is a cardiology consultation regarding congestive heart failure. He is not routinely followed up in the office due to noncompliance but last seen in hospital in consultation few months back. Essentially, severe cardiomyopathy, substance abuse, alcohol abuse with recurrent hospitalizations. I had last seen him in August of this year. At that time, due to noncompliance and ongoing alcohol/substance abuse issues he was admitted with shortness of breath. He was treated for acute heart failure and then eventually discharged home. Most recent hospitalization was earlier this month. Now he is again admitted for shortness of breath. He has been brought in by EMS for hypoxia and lethargy. He was tachycardic but maintaining blood pressure. Per initial ICU note, blood pressure was 145/104 mm Hg and heart rate was 138/Min. He was put on BiPAP. Then he was admitted as acute heart failure to ICU and treated accordingly. Also on empiric antibiotics. Currently, he is quite lethargic and not able to give any clear answers but when I questioned him about medications, he states he takes them only intermittently. With regard to anticoagulation, again it seems he does not take it regularly. He is once again cocaine positive. Review of Systems 2 Review of Systems: Yes all other systems are reviewed and are negative Constitutional: Constitutional: Reports as per HPI and Reports no additional constitutional complaints Eyes: Eyes: Reports as per HPI and Denies no additional eye complaints ENT: Denies system reviewed and no additional complaints, except as documented and Reports as per HPI Cardiovascular: Cardiovascular: Reports as per HPI, Reports no additional cardiovascular complaints, Denies acrocyanosis, Denies cool extremities, Denies chest pain, Denies leg edema, Denies lightheadedness, Denies palpitations and Reports dyspnea Respiratory: Respiratory: Reports as per HPI, Denies no additional respiratory complaints and Reports dyspnea Gastrointestinal: Gastrointestinal: Reports as per HPI and Denies no additional gastrointestinal complaints Genitourinary: Genitourinary: Reports no additional male genitourinary complaints and Reports as per HPI Musculoskeletal: Musculoskeletal: Reports no additional musculoskeletal complaints and Reports as per HPI Integumentary/Breasts: Skin/Breast: Reports system reviewed and no additional complaints, except as docu Neurologic: Reports system reviewed and no additional complaints, except as documented and Reports as per HPI Psychiatric: Psychiatric: Reports no additional psychiatric complaints and Reports as per HPI Endocrine: Endocrine: Reports no additional endocrine complaints, Reports as per HPI and Denies palpitations Hematologic/Lymphatic: Hematologic/Lymphatic: Reports no additional hematologic/lymphatic complaints and Reports as per HPI Allergic/Immunologic: Allergic/Immunologic: Reports no additional allergic/immunologic complaints and Reports as per HPI [facility] Past Medical History Medical History Cocaine abuse Pulmonary HTN Heart failure with reduced ejection fraction Alcohol abuse Noncompliance Asthma Smoker Tobacco abuse Chronic HFrEF (heart failure with reduced ejection fraction) Streptococcus infection, group G Hypertension RVH (right ventricular hypertrophy) Tobacco abuse Elevated troponin Bacteremia Asthma Family History Family History Mother Breast cancer Surgical History Surgical History S/P cardiac catheterization Hx of appendectomy Social History Social History Household Members: None Household Members Other:: lives alone Housing: Apartment Do you presently have visiting nurse or other home services: No Unable to assess alcohol history related to: Unable to respond Alcohol intake: current Alcohol intake frequency: 0-2 drinks per day Alcohol type: beer Comment: pt refuses assistance to BR; up ad xin Patient Tobacco Use Status: Current everyday Tobacco user Tobacco use type: Cigarette Cigarette Packs Per Day: 0.5 Cigarettes Per Day: 10.0 Years Smoked: 25 Smoked in Last 30 Days: Yes e-Cigarette/Vaping Use: Currently Using Second Hand Smoke Exposure: No Substance Use Type: Crack/Cocaine Currently Displaying Signs/Symptoms of Drug Intoxication Withdrawal: Yes Advance Directives: Yes Advance Directives on File: Yes Advance Directives Date on File: 02/27/21 Do you have a plan to hurt others: No Plan service: No Current occupational status: employed Meds Allergies Allergy/AdvReac Type Severity Reaction Status Date / Time penicillin V Allergy Severe Swollen Verified 02/05/25 20:00 face Penicillins (PENICILLINS) Allergy Severe ANGIOEDEMA Verified 02/05/25 20:00 shellfish derived (SHELLFISH Allergy Severe ANAPHYLAXIS Verified 02/05/25 20:00 DERIVED) fish derived (fish) Allergy Anaphylaxis Verified 02/05/25 20:00 seafood Allergy Anaphylaxis Verified 02/05/25 20:00 Active Medications: Current Medications Apixaban (Apixaban 5 Mg Tablet) 5 mg PO BID [facility] Last Admin: 02/06/25 09:23 Dose: Not Given Aspirin (Aspirin 81 Mg Tab.Chew) 81 mg PO DAILY [facility] Last Admin: 02/06/25 09:23 Dose: Not Given Atorvastatin Calcium (Atorvastatin Calcium 10 Mg Tablet) 10 mg PO BEDTIME [facility] Dextrose (Dextrose 50 % 25 Gm/50 Ml Syringe) 25 gm IVPUSH Q15M PRN; Protocol PRN Reason: per Hypoglycemia Standing Ord. Glucose (Glucose Gel 15 Gm Gel..Gram.) 15 gm PO Q15M PRN; Protocol PRN Reason: per Hypoglycemia Standing Ord. Furosemide 200 mg/ Sodium (Chloride) 100 mls @ 10 mls/hr IVCONT .Q10H [facility]LA[facility] Last Infusion: 02/06/25 09:25 Dose: 0 mg/hr, 0 mls/hr Norepinephrine Bitartrate (Levophed) 8 mg in 250 mls @ 0 mls/hr IVCONT .Q0M ELANA; Protocol Insulin Human Lispro (Insulin Lispro 100 Unit/Ml 3 Ml Vial) 0 unit SUBCUT RQ6H ELANA; Protocol Last Admin: 02/06/25 06:13 Dose: 2 unit Ondansetron HCl (Ondansetron Hcl 4 Mg/2 Ml Vial) 4 mg IVPUSH Q6H PRN PRN Reason: Nausea and Vomiting Pharmacy Consult (Consult Rx Etoh Phenob Im/Po) 1 each MISCELLANE ONCE PRN; Protocol PRN Reason: Consult order Phenobarbital (Phenobarbital 30 Mg Tablet) 60 mg PO BID [facility]; Protocol Stop: 02/08/25 09:01 Phenobarbital (Phenobarbital 30 Mg Tablet) 30 mg PO BID [facility]; Protocol Stop: 02/10/25 09:01 Phenobarbital (Phenobarbital 30 Mg Tablet) 30 mg PO DAILY [facility]; Protocol Stop: 02/12/25 09:01 Phenobarbital Sodium (Phenobarbital Sodium 130 Mg/Ml Vial Im Q3hx2) 226 mg IM Q3H ELANA; Protocol Stop: 02/06/25 15:01 Home Medications ?Medication ?Instructions ?Recorded ?Confirmed ?Last Taken ?Type metformin 500 mg tablet 500 mg PO BID 10/22/2102/0601/16/25 History atorvastatin 40 mg tablet 40 mg PO DAILY 10/25/24 08/2 12/0601/16/25 History albuterol sulfate 90 mcg/actuation 2 inh inhalation Q6 H PRN shortness 10/06/24 02/06/25 10/05/24 History breath activated powder of breath or wheezing inhaler,sensor furosemide 40 mg tablet 40 mg PO BID 10/06/2401/16/25 History ergocalciferol (vitamin D2) 1,250 1,250 mcg PO MO@0900 12/29/24 02/06/25 01/10/25 History mcg (50,000 unit) capsule aspirin 81 mg tablet,delayed 81 mg PO DAILY 01/20/25 0 02/06/25 Unknown History release fluticasone 250 mcg-salmeterol 50 1 ea inhalation BID 01/20/25 02/06/25 Unknown History mcg/dose blistr powdr for inhalation tiotropium bromide 2.5 2 puff inhalation DAILY 03/0802/06/25 Unknown History mcg/actuation mist for inhalation (Spiriva Respimat) Physical Exam 2 Vital Signs: Vital Signs: Last Vital Signs Temp 98.4 F 02/06/25 08:00 Pulse 138 H 02/06/25 09:00 Resp 33 H 02/06/25 09:00 BP 157/109 H 02/06/25 09:00 Pulse Ox 100 02/06/25 09:00 O2 Del Method Non-Rebreather Ma sk 02/06/25 09:00 O2 Flow Rate 15 02/06/25 09:00 FiO2 30 02/06/25 07:00 BMI result Body Mass Index 27.7 Const: General: in distress, ill appearing, lethargic and tired appearing O rientation/consciousness: patient oriented x3 and lethargic HEENT: Other: Unremarkable Head: Yes normal to inspection Neck: Neck: Yes normal visual inspection Chest: Chest palpation & inspection: normal inspection of the chest Resp: Auscultation: crackles, rhonchi and diminished lung sounds Cardio: Palpation: normal PMI Heart sounds: S1 normal heart sound present, S2 normal heart sound present, no gallops, no murmurs and no rubs GI: Palpation (GI): Soft to palpation Back/Spine/Pelvis: Other: unremarkable Skin: General skin exam: no rashes or lesions noted Neuro: General: patient oriented x3 Extrem: General: Yes normal to inspection Psych: Mental Status: mental status grossly normal Objective Labs and Meds 02/06/25 05:37 02/06/25 05:37 Lab results: Laboratory Results - last 24 hr 02/05/25 02/05/25 02/05/25 20:03 20:11 20:19 WBC 5.1 RBC 5.17 Hgb 16.2 Hct 49.0 MCV 94.8 MCH 31.3 MCHC 33.1 RDW 15.8 Plt Count 204 MPV 9.9 Immature Gran % (Auto) Cancelled Neut % (Auto) Cancelled Lymph % (Auto) Cancelled [place] % (Auto) Cancelled Eos % (Auto) Cancelled Baso % (Auto) Cancelled Lymph # (Auto) Cancelled [place] # (Auto) Cancelled Eos # (Auto) Cancelled Baso # (Auto) Cancelled Abs Immat Gran (auto) Cancelled Absolute Neuts (auto) Cancelled Absolute Nucleated RBC 0.000 Nucleated RBC % (auto) 0.0 Neutrophils % (Manual) 56 Band Neutrophils % 2 L Lymphocytes % (Manual) 10 L Atypical Lymphs % (Man) 11 H Monocytes % (Manual) 18 H Basophils % (Manual) 3 H Abs Neuts (Manual) 3.0 Lymphocytes # (Manual) 0.5 L Atyp Lymphs # (Manual) 0.6 Monocytes # (Manual) 0.9 Basophils # (Manual) 0.2 Platelet Estimate NORMAL Large Platelets PRESENT Plt Morphology Comment NOTED RBC Morphology NOTED Polychromasia 2+ (3-5) Macrocytosis 1+ (5-14) Acanthocytes (Spur) 1+ (0-2) Smear Tech's Comments MANUAL DIFF Smear Path Review SEE NOTE PT 15.5 H INR 1.4 H O2 Saturation 98.0 ABG pH at Pt Temp 7.18 L* ABG pCO2 at Pt Temp 56 H ABG pO2 at Pt Temp 126 H ABG HCO3 21 L ABG Base Excess (Actual) -7.5 VBG pH 7.12 L* VBG pCO2 69 VBG pO2 44 VBG HCO3 23 VBG O2 Saturation 54.0 VBG Base Excess -7.4 Sodium 137 Potassium 5.2 H D Chloride 98 Carbon Dioxide 23 Anion Gap 21 H BUN 63 H Creatinine 2.91 H Estim Creat Clear Calc 29.5 Estimated GFR 22 POC Glucose Random Glucose 225 H Lactic Acid 3.8 H* Lactic Acid F/U @ 2Hr Lactic Acid F/U @ 4Hr Calcium 9.8 Phosphorus 7.9 H Magnesium 3.0 H Total Bilirubin 1.5 H AST 157 H ALT 128 H Alkaline Phosphatase 326 H Troponin I High Sens 157.3 H* D B-Natriuretic Peptide 2736 H Total Protein 9.1 H Albumin 4.8 Beta-Hydroxybutyrate 0.43 H Urine Opiates Screen Ur Buprenorphine Scrn Ur Oxycodone Screen Urine Methadone Screen Urine Fentanyl Screen Ur Barbiturates Screen Ur Phencyclidine Scrn Ur Amphetamines Screen U Benzodiazepines Scrn Urine Cocaine Screen U Marijuana (THC) Screen 02/05/25 02/05/25 02/05/25 21:03 22:31 22:55 WBC RBC Hgb Hct MCV MCH MCHC RDW Plt Count MPV Immature Gran % (Auto) Neut % (Auto) Lymph % (Auto) [place] % (Auto) Eos % (Auto) Baso % (Auto) Lymph # (Auto) [place] # (Auto) Eos # (Auto) Baso # (Auto) Abs Immat Gran (auto) Absolute Neuts (auto) Absolute Nucleated RBC Nucleated RBC % (auto) Neutrophils % (Manual) Band Neutrophils % Lymphocytes % (Manual) Atypical Lymphs % (Man) Monocytes % (Manual) Basophils % (Manual) Abs Neuts (Manual) Lymphocytes # (Manual) Atyp Lymphs # (Manual) Monocytes # (Manual) Basophils # (Manual) Platelet Estimate Large Platelets Plt Morphology Comment RBC Morphology Polychromasia Macrocytosis Acanthocytes (Spur) Smear Tech's Comments Smear Path Review PT INR O2 Saturation ABG pH at Pt Temp ABG pCO2 at Pt Temp ABG pO2 at Pt Temp ABG HCO3 ABG Base Excess (Actual) VBG pH VBG pCO2 VBG pO2 VBG HCO3 VBG O2 Saturation VBG Base Excess Sodium Potassium Chloride Carbon Dioxide Anion Gap BUN Creatinine Estim Creat Clear Calc Estimated GFR POC Glucose Random Glucose Lactic Acid Lactic Acid F/U @ 2Hr 2.3 H* Lactic Acid F/U @ 4Hr Calcium Phosphorus Magnesium Total Bilirubin AST ALT Alkaline Phosphatase Troponin I High Sens 172.8 H* B-Natriuretic Peptide Total Protein Albumin Beta-Hydroxybutyrate Urine Opiates Screen Not Detected Ur Buprenorphine Scrn Not Detected Ur Oxycodone Screen Not Detected Urine Methadone Screen Not Detected Urine Fentanyl Screen Not Detected Ur Barbiturates Screen Not Detected Ur Phencyclidine Scrn Not Detected Ur Amphetamines Screen Not Detected U Benzodiazepines Scrn Not Detected Urine Cocaine Screen POSITIVE H U Marijuana (THC) Screen Not Detected 02/05/25 02/06/25 02/06/25 23:39 01:04 05:37 WBC 5.8 RBC 4.98 Hgb 15.5 Hct 46.3 MCV 93.0 MCH 31.1 MCHC 33.5 RDW 15.8 Plt Count 172 MPV 9.7 Immature Gran % (Auto) 0.7 H Neut % (Auto) 61.7 Lymph % (Auto) 18.2 L [place] % (Auto) 18.9 H Eos % (Auto) 0.0 Baso % (Auto) 0.5 Lymph # (Auto) 1.1 L [place] # (Auto) 1.1 Eos # (Auto) 0.0 Baso # (Auto) 0.0 Abs Immat Gran (auto) 0.04 H Absolute Neuts (auto) 3.6 Absolute Nucleated RBC 0.000 Nucleated RBC % (auto) 0.0 Neutrophils % (Manual) Band Neutrophils % Lymphocytes % (Manual) Atypical Lymphs % (Man) Monocytes % (Manual) Basophils % (Manual) Abs Neuts (Manual) Lymphocytes # (Manual) Atyp Lymphs # (Manual) Monocytes # (Manual) Basophils # (Manual) Platelet Estimate Large Platelets Plt Morphology Comment RBC Morphology Polychromasia Macrocytosis Acanthocytes (Spur) Smear Tech's Comments VERIFIED Smear Path Review PT INR O2 Saturation ABG pH at Pt Temp ABG pCO2 at Pt Temp ABG pO2 at Pt Temp ABG HCO3 ABG Base Excess (Actual) VBG pH VBG pCO2 VBG pO2 VBG HCO3 VBG O2 Saturation VBG Base Excess Sodium 135 Potassium 5.9 H Chloride 101 Carbon Dioxide 21 L Anion Gap 19 BUN 69 H Creatinine 2.48 H Estim Creat Clear Calc 32.0 Estimated GFR 26 POC Glucose 167 H Random Glucose 161 H Lactic Acid Lactic Acid F/U @ 2Hr Lactic Acid F/U @ 4Hr 1.9 Calcium 9.6 Phosphorus Magnesium 2.8 H Total Bilirubin AST ALT Alkaline Phosphatase Troponin I High Sens B-Natriuretic Peptide Total Protein Albumin 4.0 Beta-Hydroxybutyrate Urine Opiates Screen Ur Buprenorphine Scrn Ur Oxycodone Screen Urine Methadone Screen Urine Fentanyl Screen Ur Barbiturates Screen Ur Phencyclidine Scrn Ur Amphetamines Screen U Benzodiazepines Scrn Urine Cocaine Screen U Marijuana (THC) Screen 02/06/25 02/06/25 05:39 05:51 WBC RBC Hgb Hct MCV MCH MCHC RDW Plt Count MPV Immature Gran % (Auto) Neut % (Auto) Lymph % (Auto) [place] % (Auto) Eos % (Auto) Baso % (Auto) Lymph # (Auto) [place] # (Auto) Eos # (Auto) Baso # (Auto) Abs Immat Gran (auto) Absolute Neuts (auto) Absolute Nucleated RBC Nucleated RBC % (auto) Neutrophils % (Manual) Band Neutrophils % Lymphocytes % (Manual) Atypical Lymphs % (Man) Monocytes % (Manual) Basophils % (Manual) Abs Neuts (Manual) Lymphocytes # (Manual) Atyp Lymphs # (Manual) Monocytes # (Manual) Basophils # (Manual) Platelet Estimate Large Platelets Plt Morphology Comment RBC Morphology Polychromasia Macrocytosis Acanthocytes (Spur) Smear Tech's Comments Smear Path Review PT INR O2 Saturation ABG pH at Pt Temp ABG pCO2 at Pt Temp ABG pO2 at Pt Temp ABG HCO3 ABG Base Excess (Actual) VBG pH 7.29 L VBG pCO2 46 VBG pO2 80 VBG HCO3 22 VBG O2 Saturation 94.0 VBG Base Excess -3.9 Sodium Potassium Chloride Carbon Dioxide Anion Gap BUN Creatinine Estim Creat Clear Calc Estimated GFR POC Glucose 184 H Random Glucose Lactic Acid Lactic Acid F/U @ 2Hr Lactic Acid F/U @ 4Hr Calcium Phosphorus Magnesium Total Bilirubin AST ALT Alkaline Phosphatase Troponin I High Sens B-Natriuretic Peptide Total Protein Albumin Beta-Hydroxybutyrate Urine Opiates Screen Ur Buprenorphine Scrn Ur Oxycodone Screen Urine Methadone Screen Urine Fentanyl Screen Ur Barbiturates Screen Ur Phencyclidine Scrn Ur Amphetamines Screen U Benzodiazepines Scrn Urine Cocaine Screen U Marijuana (THC) Screen ECG Interpretation: In the EKG, tachycardic at 140s/Min. With regard to the rhythm, possibly atrial flutter with rapid rate. Difficult to say definitively. Assessment and Plan (1) Acute on chronic systolic and diastolic heart failure, NYHA class 4: Status: Acute (2) Cocaine abuse: Status: Acute Plan Labs reviewed. Cardiac BNP is 2736. Two weeks ago, it was 1331. It has been overall up and down in the last several checks. High sensitivity troponin level is 157 and 172. Cocaine positive. In the echocardiogram from 01/22, severely increased left ventricular size with LVEF of 15-20% with apical thrombus. Essentially, acute on chronic congestive heart failure with ongoing substance abuse; cardiogenic shock. With regard to the rhythm, could be atrial flutter with rapid rate but difficult to be sure. He is currently on Levophed drip. Blood pressure did temporarily drop but has improved on the Levophed. He has been on diuretic drip overnight. However, based on the input/output data, he is only -440 cc or so. Ideally, should would restore sinus rhythm but he has not been on anticoagulation due to non-compliance. If able, we can try a small dose of beta-jael to see if it will slow him down. Ideally, we will need a EUGENIE before any attempts at cardioversionmbut he is on non-rebreather -would need intubation for EUGENIE. He is critically ill with high risk of decompensation and . He needs tertiary level care for management of the above. Discussed with Dr. Harris at [facility] CCU; accepted for further care. Discussed with , ICU, [place]. Contacted Transfer center at [facility]. Total critical care time spent in evaluation of patient, review of data, discussion with consultants, coordination of transfer, documentation, 75 minutes. Procedures Date of Service Date of Service: 02/06/25
[2025-02-06 09:55] LABS: Glucose, Whole Blood 84 mg/dL (60-115)
[2025-02-06] MEDS: Phenylephrine HCL 1,000 MCG/10 ML SYRINGE 200 MCG IVPUSH (10:00)
--- NOTE | 2025-02-06 10:03 | PC.RT ---
Pt noted inc in dyspnea. Placed on 100% NRB, aware. Cardiology in to see, bedside echo pending.
[2025-02-06] MEDS: Calcium Chloride 1 GM/10 ML SYRINGE IVPUSH (10:06)
--- NOTE | 2025-02-06 10:30 | P.DS_ITS ---
DS: Providers Provider Date of Service: 02/06/25 Date of admission: 02/05/25 22:51 Date of discharge: 02/06/25 Primary care physician: [facility] Attending physician on admission: Iris Brar Consults: 02/05/25 23:08 Addiction Medicine Provider Stat Consulting Provider: Addiction Covering Reason for consultation: Cocaine use Has provider been notified: No 02/06/25 06:40 Consult to Cardiology Stat Consulting Provider: [facility] [place] [facility] Reason for consultation: cardiomyopathy Has provider been notified: No Discharging clinician: Iris Brar DS: Transfer Hospital Acceptance Reason for Transfer: Cardiac Care Name of Facility: [facility] Accepting Provider: Dr. Harris DS: Diagnosis Discharge Diagnosis (1) Acute on chronic clinical systolic heart failure: Status: Acute DS: Summary Time Attestation Total time managing care of this patient today: 30 mintues. Discharge Coordination Time (in mins): 30 Quality: Safe Use of Opioids Does Pt have an Active Cancer Diagnosis on the Problem List?: No Quality: Stroke Does the patient have a stroke diagnosis?: No Physical Exam Vital Signs: Vital Signs: Last Vital Signs Temp 98.4 F 02/06/25 08:00 Pulse 142 H 02/06/25 10:00 Resp 24 H 02/06/25 10:00 BP 150/81 H 02/06/25 10:00 Pulse Ox 97 02/06/25 10:00 O2 Del Method Non-Rebreather Ma sk 02/06/25 10:00 O2 Flow Rate 15 02/06/25 10:00 FiO2 30 02/06/25 07:00 BMI result Body Mass Index 27.7 Const: Other: appreciable mild dyspnea, though not in overt distress; fatigued General: cooperative and well developed Orientation/consciousness: patient oriented x3 HEENT: Head: Yes normal to inspection, Yes normocephalic and Yes atraumatic Eyes: General: appearance normal, both eyes and all related structures Neck: Neck: Yes normal visual inspection, Yes full ROM, Yes no meningeal signs, Yes trachea midline and Yes supple Chest: Chest palpation & inspection: normal inspection of the chest Resp: Other: appreciable diffuse wheezing and rales; no appreciable overt rhonchi Cardio: Rate: tachycardic Rhythm: regular rhythm GI: Inspection: Yes normal to inspection, No Abdominal wall edema and No distended Palpation (GI): Soft to palpation, not firm, nontender, no guarding and not rigid Skin: General skin exam: no rashes or lesions noted Neuro: General: patient oriented x3, tone normal, moves all extremities, no meningeal signs and no focal motor deficits Extrem: Other: cool extremities; delayed capillary refill; 1+ pitting edema to bilateral shins General: Yes full ROM Psych: Appearance: grossly normal DS: Data Data Completed and Pending Labs on day of discharge: Laboratory Results - last 24 hr 02/05/25 02/05/25 02/05/25 20:03 20:11 20:19 WBC 5.1 RBC 5.17 Hgb 16.2 Hct 49.0 MCV 94.8 MCH 31.3 MCHC 33.1 RDW 15.8 Plt Count 204 MPV 9.9 Immature Gran % (Auto) Cancelled Neut % (Auto) Cancelled Lymph % (Auto) Cancelled [place] % (Auto) Cancelled Eos % (Auto) Cancelled Baso % (Auto) Cancelled Lymph # (Auto) Cancelled [place] # (Auto) Cancelled Eos # (Auto) Cancelled Baso # (Auto) Cancelled Abs Immat Gran (auto) Cancelled Absolute Neuts (auto) Cancelled Absolute Nucleated RBC 0.000 Nucleated RBC % (auto) 0.0 Neutrophils % (Manual) 56 Band Neutrophils % 2 L Lymphocytes % (Manual) 10 L Atypical Lymphs % (Man) 11 H Monocytes % (Manual) 18 H Basophils % (Manual) 3 H Abs Neuts (Manual) 3.0 Lymphocytes # (Manual) 0.5 L Atyp Lymphs # (Manual) 0.6 Monocytes # (Manual) 0.9 Basophils # (Manual) 0.2 Platelet Estimate NORMAL Large Platelets PRESENT Plt Morphology Comment NOTED RBC Morphology NOTED Polychromasia 2+ (3-5) Macrocytosis 1+ (5-14) Acanthocytes (Spur) 1+ (0-2) Smear Tech's Comments MANUAL DIFF Smear Path Review SEE NOTE PT 15.5 H INR 1.4 H O2 Saturation 98.0 ABG pH at Pt Temp 7.18 L* ABG pCO2 at Pt Temp 56 H ABG pO2 at Pt Temp 126 H ABG HCO3 21 L ABG Base Excess (Actual) -7.5 VBG pH 7.12 L* VBG pCO2 69 VBG pO2 44 VBG HCO3 23 VBG O2 Saturation 54.0 VBG Base Excess -7.4 Sodium 137 Potassium 5.2 H D Chloride 98 Carbon Dioxide 23 Anion Gap 21 H BUN 63 H Creatinine 2.91 H Estim Creat Clear Calc 29.5 Estimated GFR 22 POC Glucose Random Glucose 225 H Lactic Acid 3.8 H* Lactic Acid F/U @ 2Hr Lactic Acid F/U @ 4Hr Calcium 9.8 Phosphorus 7.9 H Magnesium 3.0 H Total Bilirubin 1.5 H AST 157 H ALT 128 H Alkaline Phosphatase 326 H Troponin I High Sens 157.3 H* D B-Natriuretic Peptide 2736 H Total Protein 9.1 H Albumin 4.8 Beta-Hydroxybutyrate 0.43 H Urine Opiates Screen Ur Buprenorphine Scrn Ur Oxycodone Screen Urine Methadone Screen Urine Fentanyl Screen Ur Barbiturates Screen Ur Phencyclidine Scrn Ur Amphetamines Screen U Benzodiazepines Scrn Urine Cocaine Screen U Marijuana (THC) Screen 02/05/25 02/05/25 02/05/25 21:03 22:31 22:55 WBC RBC Hgb Hct MCV MCH MCHC RDW Plt Count MPV Immature Gran % (Auto) Neut % (Auto) Lymph % (Auto) [place] % (Auto) Eos % (Auto) Baso % (Auto) Lymph # (Auto) [place] # (Auto) Eos # (Auto) Baso # (Auto) Abs Immat Gran (auto) Absolute Neuts (auto) Absolute Nucleated RBC Nucleated RBC % (auto) Neutrophils % (Manual) Band Neutrophils % Lymphocytes % (Manual) Atypical Lymphs % (Man) Monocytes % (Manual) Basophils % (Manual) Abs Neuts (Manual) Lymphocytes # (Manual) Atyp Lymphs # (Manual) Monocytes # (Manual) Basophils # (Manual) Platelet Estimate Large Platelets Plt Morphology Comment RBC Morphology Polychromasia Macrocytosis Acanthocytes (Spur) Smear Tech's Comments Smear Path Review PT INR O2 Saturation ABG pH at Pt Temp ABG pCO2 at Pt Temp ABG pO2 at Pt Temp ABG HCO3 ABG Base Excess (Actual) VBG pH VBG pCO2 VBG pO2 VBG HCO3 VBG O2 Saturation VBG Base Excess Sodium Potassium Chloride Carbon Dioxide Anion Gap BUN Creatinine Estim Creat Clear Calc Estimated GFR POC Glucose Random Glucose Lactic Acid Lactic Acid F/U @ 2Hr 2.3 H* Lactic Acid F/U @ 4Hr Calcium Phosphorus Magnesium Total Bilirubin AST ALT Alkaline Phosphatase Troponin I High Sens 172.8 H* B-Natriuretic Peptide Total Protein Albumin Beta-Hydroxybutyrate Urine Opiates Screen Not Detected Ur Buprenorphine Scrn Not Detected Ur Oxycodone Screen Not Detected Urine Methadone Screen Not Detected Urine Fentanyl Screen Not Detected Ur Barbiturates Screen Not Detected Ur Phencyclidine Scrn Not Detected Ur Amphetamines Screen Not Detected U Benzodiazepines Scrn Not Detected Urine Cocaine Screen POSITIVE H U Marijuana (THC) Screen Not Detected 02/05/25 02/06/25 02/06/25 23:39 01:04 05:37 WBC 5.8 RBC 4.98 Hgb 15.5 Hct 46.3 MCV 93.0 MCH 31.1 MCHC 33.5 RDW 15.8 Plt Count 172 MPV 9.7 Immature Gran % (Auto) 0.7 H Neut % (Auto) 61.7 Lymph % (Auto) 18.2 L [place] % (Auto) 18.9 H Eos % (Auto) 0.0 Baso % (Auto) 0.5 Lymph # (Auto) 1.1 L [place] # (Auto) 1.1 Eos # (Auto) 0.0 Baso # (Auto) 0.0 Abs Immat Gran (auto) 0.04 H Absolute Neuts (auto) 3.6 Absolute Nucleated RBC 0.000 Nucleated RBC % (auto) 0.0 Neutrophils % (Manual) Band Neutrophils % Lymphocytes % (Manual) Atypical Lymphs % (Man) Monocytes % (Manual) Basophils % (Manual) Abs Neuts (Manual) Lymphocytes # (Manual) Atyp Lymphs # (Manual) Monocytes # (Manual) Basophils # (Manual) Platelet Estimate Large Platelets Plt Morphology Comment RBC Morphology Polychromasia Macrocytosis Acanthocytes (Spur) Smear Tech's Comments VERIFIED Smear Path Review PT INR O2 Saturation ABG pH at Pt Temp ABG pCO2 at Pt Temp ABG pO2 at Pt Temp ABG HCO3 ABG Base Excess (Actual) VBG pH VBG pCO2 VBG pO2 VBG HCO3 VBG O2 Saturation VBG Base Excess Sodium 135 Potassium 5.9 H Chloride 101 Carbon Dioxide 21 L Anion Gap 19 BUN 69 H Creatinine 2.48 H Estim Creat Clear Calc 32.0 Estimated GFR 26 POC Glucose 167 H Random Glucose 161 H Lactic Acid Lactic Acid F/U @ 2Hr Lactic Acid F/U @ 4Hr 1.9 Calcium 9.6 Phosphorus Magnesium 2.8 H Total Bilirubin AST ALT Alkaline Phosphatase Troponin I High Sens B-Natriuretic Peptide Total Protein Albumin 4.0 Beta-Hydroxybutyrate Urine Opiates Screen Ur Buprenorphine Scrn Ur Oxycodone Screen Urine Methadone Screen Urine Fentanyl Screen Ur Barbiturates Screen Ur Phencyclidine Scrn Ur Amphetamines Screen U Benzodiazepines Scrn Urine Cocaine Screen U Marijuana (THC) Screen 02/06/25 02/06/25 02/06/25 05:39 05:51 09:52 WBC RBC Hgb Hct MCV MCH MCHC RDW Plt Count MPV Immature Gran % (Auto) Neut % (Auto) Lymph % (Auto) [place] % (Auto) Eos % (Auto) Baso % (Auto) Lymph # (Auto) [place] # (Auto) Eos # (Auto) Baso # (Auto) Abs Immat Gran (auto) Absolute Neuts (auto) Absolute Nucleated RBC Nucleated RBC % (auto) Neutrophils % (Manual) Band Neutrophils % Lymphocytes % (Manual) Atypical Lymphs % (Man) Monocytes % (Manual) Basophils % (Manual) Abs Neuts (Manual) Lymphocytes # (Manual) Atyp Lymphs # (Manual) Monocytes # (Manual) Basophils # (Manual) Platelet Estimate Large Platelets Plt Morphology Comment RBC Morphology Polychromasia Macrocytosis Acanthocytes (Spur) Smear Tech's Comments Smear Path Review PT INR O2 Saturation ABG pH at Pt Temp ABG pCO2 at Pt Temp ABG pO2 at Pt Temp ABG HCO3 ABG Base Excess (Actual) VBG pH 7.29 L VBG pCO2 46 VBG pO2 80 VBG HCO3 22 VBG O2 Saturation 94.0 VBG Base Excess -3.9 Sodium Potassium Chloride Carbon Dioxide Anion Gap BUN Creatinine Estim Creat Clear Calc Estimated GFR POC Glucose 184 H 84 Random Glucose Lactic Acid Lactic Acid F/U @ 2Hr Lactic Acid F/U @ 4Hr Calcium Phosphorus Magnesium Total Bilirubin AST ALT Alkaline Phosphatase Troponin I High Sens B-Natriuretic Peptide Total Protein Albumin Beta-Hydroxybutyrate Urine Opiates Screen Ur Buprenorphine Scrn Ur Oxycodone Screen Urine Methadone Screen Urine Fentanyl Screen Ur Barbiturates Screen Ur Phencyclidine Scrn Ur Amphetamines Screen U Benzodiazepines Scrn Urine Cocaine Screen U Marijuana (THC) Screen Discharge Plan Discharge Anticipated Discharge Date/Time: 02/06/25 10:50 Patient Disposition: Xfer Acute Care Hospital Discharge Diagnosis: Cardiogenic Shock Referrals: [facility] [Primary Care Provider, Medical] - 1 Week Discharge Medications: Continued metoprolol succinate [Toprol XL] 50 mg tablet extended release 24 hr 50 mg PO DAILY Qty: 30 5RF spironolactone 25 mg Tablet 25 mg PO DAILY Qty: 30 0RF Protocol: Hold for SBP< HOLD for SBP < : 90 atorvastatin 40 mg tablet 40 mg PO DAILY furosemide 40 mg tablet 40 mg PO BID Protocol: Hold for SBP< HOLD for SBP < : 90 albuterol sulfate 90 mcg/actuation aero powdr breath act w/sensor 2 inh inhalation Q6H PRN (Reason: shortness of breath or wheezing) ergocalciferol (vitamin D2) 1,250 mcg (50,000 unit) capsule 1,250 mcg PO MO@0900 fluticasone propion-salmeterol 250-50 mcg/dose blister with device 1 ea INHALATION BID aspirin 81 mg tablet,delayed release (DR/EC) 81 mg PO DAILY Spiriva Respimat 2.5 mcg/actuation Mist 2 puff INHALATION DAILY Eliquis 5 mg Tablet 5 mg PO BID Qty: 180 0RF acetazolamide 250 mg tablet 250 mg PO BID Qty: 6 0RF metformin 500 mg tablet 500 mg PO BID Discharge Orders: Discharge Order (Routine); Ordered 02/06/25 Ordered By: Iris Brar Activity on Discharge: As tolerated Stand Alone Forms: Patient Portal Discharge page Print Language: Cameroonian Care Plan Goals: [facility] for further cardiac care. Health Concerns: See below. Plan of Treatment: Patient is a 64 Y M w/ COPD, hyperlipidemia, diabetes mellitus type II, polysubstance misuse, c/b non-ischemic cardiomyopathy, EF 15%, c/b cardiac thrombus, and multiple recent admissions for CHF exacerbations, presenting to ED on 02/05 w/ dyspnea consistent w/ prior CHF exacerbations, necessitating non- invasive ventilation N: no acute issues CV: non-ischemic cardiomyopathy c./b CHF exacerbation c/b cardiogenic shock, norepinephrine gtt R: acute hypoxic respiratory failure, likely d/t CHF exacerbation, non- rebreather, wean as tolerated GI: no acute issues : acute on chronic renal insufficiency; furosemide gtt, to monitor renal indices H: cardiac thrombus, home apixaban ID: empiric levofloxacin in setting of dyspnea E: diabetes mellitus type II, insulin sliding scale P: alcohol use, CIWA protocol S: update given to daughter/HCP; code status discussed 02/06 AM, desires CPR, though DNI Assessment: See above,
--- NOTE | 2025-02-06 10:54 | MHC.CM.PN ---
Pt requiring cardiac intervention at [facility]: will be transferred for emergent continued care.
--- NOTE | 2025-02-06 16:05 | P.CDIM_ITS ---
PROVIDER RESPONSE TEXT: To clarify, the appropriate diagnosis supported by the clinical indicators: Acute renal failure/injury on Chronic Kidney Disease (CKD): 2 QUERY TEXT: PHYSICIAN'S DOCUMENTATION REQUEST Date of Query: 02/06/2025 10:55 AM EDT Patient Name: Jerry Sumner Admit Date: 02/06/2025 Dear Iris Brar MD, A review of the medical record indicates additional documentation may be needed. Please review below and update the documentation accordingly. Clinical Indicators: ICU progress notes: Acute on chronic renal insufficiency Furosemide gtt, monitor renal indices GFR 26 CR 2.48 BUN 69 H Please clarify which of the following accurately represents the patient's renal status: Acute renal failure/injury on Chronic Kidney Disease (CKD) please specify stage of CKD, 1, 2, 3a, 3b, 4 CKD, please provide stage if other Other (explain) Clinically unable to determine (explain) Thank you, Greta Guerrero, CCS, CDIS Use of terms such as suspected, likely, concern for, or probable (associated with a specific diagnosis that is being evaluated, monitored, or treated as if it exists) are acceptable and can be coded in the inpatient setting, when documented at the time of discharge. Please use your independent medical judgment in providing your response. THIS QUERY IS PART OF THE PERMANENT MEDICAL RECORD
--- NOTE | 2025-02-06 16:05 | P.CDIM_ITS ---
PROVIDER RESPONSE TEXT: To clarify, the appropriate diagnosis supported by the clinical indicators: Clinically unable to determine (explain): based on clinical presentation and medical history, likely pulmonary edema QUERY TEXT: PHYSICIAN'S DOCUMENTATION REQUEST Date of Query: 02/06/2025 10:59 AM EDT Patient Name: Jerry Sumner Admit Date: 02/06/2025 Dear Iris Brar MD, A review of the medical record indicates additional documentation may be needed. Please review below and update the documentation accordingly. Clinical Indicators: ICU H&P dated 02/06/25 - ID: Pneumonitis versus pulmonary edema noted on CT. Presentation suggestive of CHF over sepsis. Empiric antibiotics given in ED. Based on the above, could you clarify in the Progress Notes further specificity regarding the most likely type of pneumonitis documented in the H&P, if any: Aspiration Pneumonitis due to vomitus, gastric, food, chemical, drug induced, interstitial etc. Pneumonitis Please indicate other type After study Pneumonitis is ruled out Other (explain) Clinically unable to determine (explain) Thank you, Greta Guerrero, CCS, CDIS Use of terms such as suspected, likely, concern for, or probable (associated with a specific diagnosis that is being evaluated, monitored, or treated as if it exists) are acceptable and can be coded in the inpatient setting, when documented at the time of discharge. Please use your independent medical judgment in providing your response. THIS QUERY IS PART OF THE PERMANENT MEDICAL RECORD
== END 2025-02-06 11:54 | disposition short-term general hospital (02) | DRG 469 ==
LOC: HO.ED 23:01 → HO.EDOVER 23:44 → HO.ICU 23:45
PROVIDERS: Emergency Medicine; Physician Assistant Medical; Admitting Provider Nurse Practitioner Family; Emergency Provider Emergency Medicine; PCP Nurse Practitioner Primary Care; Visit Provider Internal Medicine Critical Care Medicine
DX: N17.9 Acute kidney failure, unspecified (principal); R57.0 Cardiogenic shock; I50.23 Acute on chronic systolic (congestive) heart failure; I42.8 Other cardiomyopathies; E11.22 Type 2 diabetes mellitus with diabetic chronic kidney disease; I51.3 Intracardiac thrombosis, not elsewhere classified; N18.2 Chronic kidney disease, stage 2 (mild); F10.20 Alcohol dependence, uncomplicated; F14.10 Cocaine abuse, uncomplicated; J44.9 Chronic obstructive pulmonary disease, unspecified; F19.90 Other psychoactive substance use, unspecified, uncomplicated; F17.210 Nicotine dependence, cigarettes, uncomplicated; Z71.6 Tobacco abuse counseling; Z79.01 Long term (current) use of anticoagulants; Z79.82 Long term (current) use of aspirin; Z79.84 Long term (current) use of oral hypoglycemic drugs; Z79.899 Other long term (current) drug therapy
CPT/HCPCS: 36415; 71045; 71250; 74176; 80048; 80053; 80307; 82010; 82040; 82803; 82947; 83605; 83735; 83880; 84100; 84484; 85007; 85025; 85027; 85610; 87040; 93005; 93306; 94660; 99285; 99499; J0618; J0696; J1271; J1938; J2305; J2371; J2405; J2560

== ENCOUNTER → 2025-02-05 19:48 | Outpatient (BNV) | payer MEDICAID, SELFPAY | PROVIDERS: Emergency Provider Emergency Medicine; Visit Provider Radiology Diagnostic Radiology | DX: R06.02 Shortness of breath (principal) | CPT/HCPCS: 71045 ==

== ENCOUNTER 2025-02-05 22:51 | Outpatient (BNV) | payer MEDICAID, SELFPAY | END 2025-02-06 07:00 | PROVIDERS: Admitting Provider Nurse Practitioner Family; Emergency Provider Emergency Medicine; PCP Nurse Practitioner Primary Care; Visit Provider Internal Medicine | DX: I51.7 Cardiomegaly (principal); I25.2 Old myocardial infarction | CPT/HCPCS: 93010; 93306 ==

== ENCOUNTER → 2025-02-05 22:51 | Outpatient (BNV) | payer MEDICAID, SELFPAY | PROVIDERS: Admitting Provider Nurse Practitioner Family; Emergency Provider Emergency Medicine; Visit Provider Internal Medicine | DX: I50.43 Acute on chronic combined systolic (congestive) and diastolic (congestive) heart failure (principal); F14.10 Cocaine abuse, uncomplicated | CPT/HCPCS: 93010; 99291; 99292 ==

== ENCOUNTER → 2025-02-05 22:51 | Outpatient (BNV) | payer MEDICAID, SELFPAY | PROVIDERS: Admitting Provider Nurse Practitioner Family; Emergency Provider Emergency Medicine; Visit Provider Nurse Practitioner Family | DX: I42.9 Cardiomyopathy, unspecified (principal); I50.23 Acute on chronic systolic (congestive) heart failure; J96.02 Acute respiratory failure with hypercapnia; I51.7 Cardiomegaly; N17.9 Acute kidney failure, unspecified; N18.9 Chronic kidney disease, unspecified; R74.01 Elevation of levels of liver transaminase levels; F14.10 Cocaine abuse, uncomplicated; Z78.9 Other specified health status | CPT/HCPCS: 99238; 99291 ==